=== PATIENT | male | born 1945 | race Caucasian/White ===

== ENCOUNTER → 2017-02-05 | Outpatient (CLI) | payer OTHER ==
[~2017-02-05] MED LIST: ALPR1TAB6 PO; AMLO10TA2 PO; BENA40TA2 PO; DICY10CA53 PO; HYDR453.3 TP; IOHEXOL 240 MG/ML 50ML VIAL. PO ONE; OMEP20CA9 PO; OXYC15TA PO; TRIA1CAP3 PO
--- NOTE | 2017-02-05 13:19 | KCIC ---
CT Abdomen and Pelvis without Intravenous Contrast: History: Generalized abdominal pain for one month, history of diverticulosis and diverticulitis. Comparison: None. Technique: After administration of oral contrast, CT of the abdomen and pelvis was performed. Exposure: One or more of the following individualized dose reduction techniques were utilized for this examination: 1. Automated exposure control 2. Adjustment of the mA and/or kV according to patient size 3. Use of iterative reconstruction technique Findings: Evaluation of solid organs is limited by lack of intravenous contrast. Images of the lower chest demonstrate coronary artery calcifications. Old granulomatous disease of the chest is noted including a calcified granuloma in the left lower lobe. Calcified splenic and hepatic granulomata are present. The spleen is enlarged measuring 18.4 cm in craniocaudal dimension. Bilateral adrenal glands are unremarkable. Pancreas is unremarkable. Aortic atherosclerosis is noted. Gallbladder is absent. No bowel obstruction or inflammation is identified. Appendix is without evidence of inflammation. Colonic diverticulosis is noted, but no diverticulitis is appreciated. No free air or free fluid is seen in the abdomen or pelvis. Urinary bladder is unremarkable. Prostate is enlarged with measurements of 6.5 x 5.3 x 6.4 cm. Rangel bilateral kidneys and ureters are free of stone or obstruction. The inferior pole of the right kidney demonstrates 1.2 cm exophytic lesion which is not adequately characterized on this examination. Superior pole the right kidney demonstrates 0.8 cm exophytic lesion, not adequately characterized. There appears to be mild wall thickening which affects preferentially the proximal two thirds of the stomach. There is an ill-defined a sclerotic focus involving the medial right iliac bone measuring 4.6 cm. Smaller sclerotic lesions can be seen involving the sacrum. Degenerative changes are present in the spine. Impression: 1. Diverticulosis without evidence of diverticulitis. 2. No acute inflammatory process identified in the abdomen or pelvis. 3. Mild wall thickening of the proximal stomach. This finding is nonspecific, but can be seen with Menetrier's disease versus gastritis. Recommend clinical correlation. 4. Nonspecific exophytic lesions involving the right kidney, not adequately characterized on this examination. Attempt at characterization with ultrasound could be performed if clinically indicated and if not already performed. 5. Sclerotic focus involving the medial right iliac bone. A few additional nonspecific smaller sclerotic foci are seen involving the sacrum. Additional sclerotic focus involves the proximal right femur. Recommend correlation with any history of malignancy that could cause sclerotic lesions such as prostate cancer. Nuclear medicine bone scan could be performed if clinically indicated. 6. Splenomegaly. Electronically signed by: Jimenez Sebastian MD (02/05/2017 1:15 PM) [place] [id number]
== END | disposition home or self-care (01) ==
LOC: KCIC CT 10:47
PROVIDERS: ATTEND Internal Medicine
DX: K57.90 Diverticulosis of intestine, part unspecified, without perforation or abscess without bleeding (principal); J84.10 Pulmonary fibrosis, unspecified; R16.1 Splenomegaly, not elsewhere classified; Z85.9 Personal history of malignant neoplasm, unspecified
CPT/HCPCS: 74176; Q9966

== ENCOUNTER → 2017-03-30 | Day surgery (SDC) | payer OTHER ==
[~2017-03-30] MED LIST changes: -ALPR1TAB6 PO; -AMLO10TA2 PO; -BENA40TA2 PO; -DICY10CA53 PO; -HYDR453.3 TP; -IOHEXOL 240 MG/ML 50ML VIAL. PO ONE; -OMEP20CA9 PO; -OXYC15TA PO; +PROPOFOL 20 ML IV; -TRIA1CAP3 PO
[2017-03-30] MEDS: IV RINGERS,LACTATED 1000ML 1,000 ML IV ×2 (10:58)
== END | disposition home or self-care (01) ==
LOC: ENDOS 10:09
DX: K31.7 Polyp of stomach and duodenum (principal); M19.90 Unspecified osteoarthritis, unspecified site; E66.9 Obesity, unspecified; K21.9 Gastro-esophageal reflux disease without esophagitis; Z88.2 Allergy status to sulfonamides; Z87.39 Personal history of other diseases of the musculoskeletal system and connective tissue; Z86.69 Personal history of other diseases of the nervous system and sense organs; Z90.49 Acquired absence of other specified parts of digestive tract; Z87.891 Personal history of nicotine dependence; Z88.8 Allergy status to other drugs, medicaments and biological substances
CPT/HCPCS: 43239; 88305; J2704

== ENCOUNTER → 2018-08-23 | Outpatient (CLI) | payer OTHER ==
[2017-03-30 11:55] VITALS: BP 163/92
[~2018-08-23] MED LIST changes: +ALPR1TAB6 PO; +AMLO10TA8 PO; +BENA40TA3 PO; +DICY10CA53 PO; +HYDR453.3 TP; +OMEP20CA10 PO; +OXYC15TA PO; -PROPOFOL 20 ML IV; +TRIA1CAP3 PO
--- NOTE | 2018-08-23 10:07 | RAD ---
Examination: CT of the abdomen pelvis without contrast HISTORY: History of right renal lesion, follow-up COMPARISON: 10/18/2016 TECHNIQUE: Axial CT images of the abdomen pelvis were performed without IV contrast. Coronal and sagittal deformities are performed Exposure: One or more of the following individualized dose reduction techniques were utilized for this examination: 1. Automated exposure control 2. Adjustment of the mA and/or kV according to patient size 3. Use of iterative reconstruction technique FINDINGS: Mild linear bibasilar lung airspace opacities likely atelectasis. There is mild elevation of the right hemidiaphragm. Trace right pleural effusion is identified. No evidence of free air identified in the abdomen. The evaluation of the solid organs is limited due to lack of IV contrast. The evaluation of bowel is limited due to lack of oral contrast. The noncontrasted liver grossly appears unremarkable. Cholecystectomy clips identified. The spleen measures 18 cm in length likely extending medially. The stomach is minimally distended. The visualized pancreas grossly appears unremarkable The small bowel is nondilated. Feces and gas noted in the colon. Multiple sigmoid colon diverticulosis. An appendicolith is identified within the appendix. Minimal fat stranding identified about the bilateral kidneys, nonspecific. The previously visualized exophytic round density from the inferior aspect of the right kidney appears to have minimally increased in size now measuring 1.7 cm compared to prior exam where it measured 1.3 cm. Moderate enlarged prostate gland. Moderate degenerative changes bilateral hip joint. Sclerotic density identified in the right posterior iliac bone, with sclerotic foci identified in the sacrum, right pubic bone and the proximal right femur similar to prior exam. IMPRESSION: 1. The previously visualized exophytic density from the inferior aspect of the right kidney appears to have slightly increased in size now measuring 1.7 cm compared to prior exam where it measured 1.3 cm. Recommend ultrasound kidney for further evaluation. 2. Splenomegaly. 3. Prostatomegaly. 4. Sclerotic density identified in the right posterior iliac bone, with sclerotic foci identified in the sacrum, right pubic bone and the proximal right femur similar to prior exam. A bone scan is recommended to exclude sclerotic metastasis. Electronically signed by: Oc Santiago MD (08/23/2018 10:04 AM) [facility]-[id number]
== END | disposition home or self-care (01) ==
LOC: CT 14:30
PROVIDERS: ATTEND Internal Medicine
DX: R16.1 Splenomegaly, not elsewhere classified (principal); K57.30 Diverticulosis of large intestine without perforation or abscess without bleeding; N40.0 Benign prostatic hyperplasia without lower urinary tract symptoms; K31.89 Other diseases of stomach and duodenum; K38.1 Appendicular concretions; N28.89 Other specified disorders of kidney and ureter; M89.8X8 Other specified disorders of bone, other site; Z90.49 Acquired absence of other specified parts of digestive tract
CPT/HCPCS: 74176

== ENCOUNTER → 2018-09-02 | Outpatient (CLI) | payer OTHER ==
[2017-03-30 11:55] VITALS: BP 163/92
--- NOTE | 2018-09-02 14:57 | KCIC ---
RENAL COMPLETE BILATERAL: 09/02/2018 2:30 PM Indication: 73 years old Male. Increase in size of right kidney lesion. Comparison: CT abdomen/pelvis August 23, 2018. FINDINGS: Sonographic evaluation of the kidneys is performed utilizing grayscale and color Doppler. Right kidney: Size: 11.2 x 5.3 x 4.7 cm. Collecting System: No hydronephrosis. No renal calculi detected. Parenchyma: Normal echotexture and morphology. On the inferior pole of the right kidney, there is a circumscribed cystic lesion measuring 2.2 x 1.2 x 1.8 cm. There is posterior acoustic enhancement with minimal internal debris identified. Margins appear mildly thickened without definite mural nodularity (Bosniak 2F). Left kidney: Size: 10.7 x 4.6 x 4.6 cm. Collecting System: No hydronephrosis. No renal calculi detected. Parenchyma: Normal echotexture and morphology. No focal contour deforming renal mass. Urinary bladder: Unremarkable. Aorta and IVC are obscured by bowel gas. Prostate is enlarged with prostate volume measuring up to 115 cc. 2. Prostatomegaly. IMPRESSION: 1. Nonvascular cystic lesion along the inferior pole the right kidney measures 2.2 x 1.2 x 1.8 cm with minimal internal debris (Bosniak 2F) and may represent a cyst complicated by hemorrhage or protein. Margins of the cysts do appear slightly thickened without definite mural nodularity. Six-month follow-up renal ultrasound or renal mass protocol CT is recommended. Electronically signed by: Karen Carvalho MD (09/02/2018 2:54 PM) [id number]
== END | disposition home or self-care (01) ==
LOC: KCIC US 14:01
PROVIDERS: ATTEND Internal Medicine
DX: N28.89 Other specified disorders of kidney and ureter (principal); N40.0 Benign prostatic hyperplasia without lower urinary tract symptoms
CPT/HCPCS: 76770

== ENCOUNTER 2019-05-17 07:55 | Inpatient (IN) | payer OTHER ==
[~2019-05-17] VITALS: Ht 177.8 cm; Wt 114.0 kg
[~2019-05-17 07:55] MED LIST changes: -OMEP20CA10 PO; +OMEP20CA16 PO
[2019-05-17] MEDS ORDERED: methylPREDNISolone SOD SUCC PF 125 MG/2 ML VIAL. IV ONE (08:15)
[2019-05-17] MEDS ORDERED: IPRATRPIUM/ALBUTEROL 0.5/2.5MG 3 ML NEBU. NEB ONE (08:15)
[2019-05-17] MEDS ORDERED: FUROSEMIDE 20 MG/2 ML VIAL. IVP ONE ×2 (08:45→11:15)
[2019-05-17] MEDS ORDERED: NITROGLYCERIN OINT 1 GM PACKET. TP ONE (08:45)
[2019-05-17] MEDS ORDERED: cefTRIAXone IV Push 1 GM VIAL. IVP ONE (08:45)
[2019-05-17] MEDS ORDERED: DOXYCYCLINE HYCLATE 100 MG in IV DEXTROSE 5% 100ML 100 ML IV ONE (09:00)
--- NOTE | 2019-05-17 09:06 | RAD ---
PORTABLE CHEST 1V Clinical Indication: Shortness of breath. Comparison: None. Findings: There is cardiomegaly. Atherosclerotic thoracic aorta. Interstitial markings are diffusely increased. There is trace fluid along the minor fissure. Stable elevation of right hemidiaphragm. Calcified granuloma left lower lobe. There is opacity in the left lung base measuring approximately 5.7 cm transverse by 3 cm craniocaudal. No definite pleural effusion. There is no pneumothorax. ACDF hardware. IMPRESSION: 1. Cardiomegaly and diffusely increased interstitial markings. Considerations include interstitial edema versus interstitial pneumonia. 2. There is consolidation in the left lung base that may be pneumonia or atelectasis or mass. Radiographic follow-up is recommended. Electronically signed by: Santosh Art MD (05/17/2019 9:03 AM) [id number]
[2019-05-17 09:49] LABS: BASE EXCESS ABG -1 mmol/L (-3-3); HCO3 ABG 25 mmol/L (21-28); PCO2 ABG 48 mmHg (35-46); PO2 ABG 80 mmHg (65-108); SAT O2 ABG 95 % (92-99)
[2019-05-17 09:55] LABS: BASO # 0.1 x10^3/uL (0.0-0.2); BASO % 1 % (0-3); EOS # 0.1 x10^3/uL (0.0-0.7); EOS % 1 % (0-3); HEMATOCRIT 50.1 % (39.0-53.0); HEMOGLOBIN 16.7 g/dL (13.0-17.5); LYMPH # 0.3 x10^3/uL (1.0-4.8); LYMPH % 3 % (24-48); MEAN CORPUSCULAR HEMOGLOBIN 29 pg (25-35); MEAN CORPUSCULAR HGB CONC 33 g/dL (31-37); MEAN CORPUSCULAR VOLUME 88 fL (79-100); MONO # 0.6 x10^3/uL (0.0-1.1); MONO % 5 % (0-9); NEUT # 10.4 x10^3/uL (1.8-7.7); NEUT % 91 % (31-73); PLATELET COUNT 203 x10^3/uL (140-400); RED BLOOD COUNT 5.69 x10^6/uL (4.30-5.70); RED CELL DISTRIBUTION WIDTH 15.4 % (11.5-14.5); WHITE BLOOD COUNT 11.5 x10^3/uL (4.0-11.0)
[2019-05-17 10:05] LABS: PROTHROMBIN TIME PATIENT 14.4 SEC (11.7-14.0)
[2019-05-17 10:13] LABS: INFLUENZA A PATIENT NEGATIVE (NEGATIVE); INFLUENZA B PATIENT NEGATIVE (NEGATIVE)
[2019-05-17 10:34] LABS: ALBUMIN 3.6 g/dL (3.4-5.0); ALBUMIN/GLOBULIN RATIO 1.1 (1.0-1.7); CALCIUM 8.3 mg/dL (8.5-10.1); CREATININE 1.5 mg/dL (0.7-1.3); POTASSIUM 4.3 mmol/L (3.5-5.1); TOTAL BILIRUBIN 1.1 mg/dL (0.2-1.0)
[2019-05-17] MEDS ORDERED: ASPIRIN CHEWABLE 81 MG TABLET. PO ONE (10:45)
[2019-05-17 11:18] LABS: % BANDS 8 % (0-9); % EOS 1 % (0-5); % LYMPHS 3 % (24-48); % MONOS 8 % (0-10); % SEGS 80 % (35-66); PLT ESTIMATE ADEQUATE (ADEQUATE)
--- NOTE | 2019-05-17 11:43 | EKG ---
[facility] [address] [place] [address] Test Date: 2019-05-17 Test Time: 08:12:43 Pat Name: MALKA THOMPSON Department: Room: Gender: M [employer] Department Supervisor: : 1945 Requested By: OMARI ANGELES Order Number: [id number] Reading MD: Measurements Intervals [place] Rate: 116 P: 90 [place]: 174 QRS: 44 QRSD: 94 T: 73 QT: 310 QTc: 436 Interpretive Statements SINUS TACHYCARDIA QRS(T) CONTOUR ABNORMALITY CONSISTENT WITH SEPTAL INFARCT PROBABLY OLD NON SPECIFIC ST DEPRESSION ABNORMAL ECG No previous ECG available for comparison
--- NOTE | 2019-05-17 12:32 | PHYS DOC ---
Past Medical History Past Medical History: Hypertension Past Surgical History: Cholecystectomy Smoking Status: Former Smoker Alcohol Use: Rarely Adult General Chief Complaint Chief Complaint: DYSPNEA/RESPIRATOY DISTRESS HPI HPI Patient is a 73 year old male who is presenting with chief complaint of shortness of breath. Patient has been coughing some he actually short of breath about 2 weeks ago he got a little bit better but then seem to get worse again last night He did shop in [facility] last week but generally he has been staying in [facility]. He does not know of any fevers per se. Review of Systems Review of Systems Constitutional: Denies fever or chills [] Eyes: Denies change in visual acuity, redness, or eye pain [] HENT: Denies nasal congestion or sore throat [] Respiratory: Denies cough or shortness of breath [] Cardiovascular: No additional information not addressed in HPI [] GI: Denies abdominal pain, nausea, vomiting, bloody stools or diarrhea [] : Denies dysuria or hematuria [] Musculoskeletal: Denies back pain or joint pain [] Integument: Denies rash or skin lesions [] Neurologic: Denies headache, focal weakness or sensory changes [] Endocrine: Denies polyuria or polydipsia [] All other systems were reviewed and found to be within normal limits, except as documented in this note. Current Medications Current Medications Current Medications Medications (Trade) Dose Ordered Sig/Chance Start Time Stop Time Status Last Admin Dose Admin Albuterol/ Ipratropium (Duoneb) 3 ml 1X ONCE 05/17/19 08:15 05/17/19 08:16 DC 05/17/19 09:00 3 ML Aspirin (Children'S Aspirin) 324 mg 1X ONCE 05/17/19 10:45 05/17/19 10:46 DC 05/17/19 11:11 324 MG Ceftriaxone Sodium (Rocephin) 1 gm 1X ONCE 05/17/19 08:45 05/17/19 08:46 DC 05/17/19 09:49 1 GM Doxycycline Hyclate 100 mg/ Dextrose 100 ml @ 50 mls/hr 1X ONCE 05/17/19 09:00 05/17/19 10:59 DC 05/17/19 09:50 50 MLS/HR Furosemide (Lasix) 20 mg 1X ONCE 05/17/19 11:15 05/17/19 11:16 DC Methylprednisolone Sodium Succinate (SOLU-Medrol 125MG VIAL) 125 mg 1X ONCE 05/17/19 08:15 05/17/19 08:16 DC 05/17/19 09:49 125 MG Nitroglycerin (Nitro-Bid Oint) 1 inch 1X ONCE 05/17/19 08:45 05/17/19 08:46 DC 05/17/19 09:49 1 INCH Allergies Allergies Allergies Coded Allergies Type Severity Reaction Last Updated Verified Sulfa (Sulfonamide Antibiotics) Allergy Intermediate 03/30/17 Yes fentanyl Allergy Intermediate 03/30/17 Yes valacyclovir Allergy Intermediate 03/30/17 Yes Physical Exam Physical Exam Constitutional: Well developed, well nourished, moderate distress HENT: Normocephalic, atraumatic, bilateral external ears normal, oropharynx moist, no oral exudates, nose normal. [] Eyes: PERRLA, EOMI, conjunctiva normal, no discharge. [] Neck: Normal range of motion, no tenderness, supple, no stridor. [] Cardiovascular:Heart rate regular rhythm, no murmur but difficult exam Lungs & Thorax: Wheezing noted bilaterally increased work of breathing noted patient was diaphoretic Abdomen: Bowel sounds normal, soft, no tenderness, no masses, no pulsatile masses. [] Skin: Warm, dry, no erythema, no rash. [] Back: No tenderness, no CVA tenderness. [] Extremities: No tenderness, no cyanosis, no clubbing, ROM intact, 2+ bilateral edema al deficits noted. [] Psychologic: Affect normal, judgement normal, mood normal. [] Current Patient Data Vital Signs Vital Signs Date Time Temp Pulse Resp B/P (MAP) Pulse Ox O2 Delivery O2 Flow Rate FiO2 05/17/19 10:57 81 135/81 (99) 98 Room Air 05/17/19 08:28 101.1 41 101.1 Lab Values Laboratory Tests Test 05/17/19 09:30 05/17/19 09:42 05/17/19 09:45 Influenza Type A Antigen Negative (NEGATIVE) Influenza Type B Antigen Negative (NEGATIVE) White Blood Count 11.5 x10^3/uL (4.0-11.0) H Red Blood Count 5.69 x10^6/uL (4.30-5.70) Hemoglobin 16.7 g/dL (13.0-17.5) Hematocrit 50.1 % (39.0-53.0) Mean Corpuscular Volume 88 fL (79-100) Mean Corpuscular Hemoglobin 29 pg (25-35) Mean Corpuscular Hemoglobin Concent 33 g/dL (31-37) Red Cell Distribution Width 15.4 % (11.5-14.5) H Platelet Count 203 x10^3/uL (140-400) Neutrophils (%) (Auto) 91 % (31-73) H Lymphocytes (%) (Auto) 3 % (24-48) L Monocytes (%) (Auto) 5 % (0-9) Eosinophils (%) (Auto) 1 % (0-3) Basophils (%) (Auto) 1 % (0-3) Neutrophils # (Auto) 10.4 x10^3/uL (1.8-7.7) H Lymphocytes # (Auto) 0.3 x10^3/uL (1.0-4.8) L Monocytes # (Auto) 0.6 x10^3/uL (0.0-1.1) Eosinophils # (Auto) 0.1 x10^3/uL (0.0-0.7) Basophils # (Auto) 0.1 x10^3/uL (0.0-0.2) Segmented Neutrophils % 80 % (35-66) H Band Neutrophils % 8 % (0-9) Lymphocytes % 3 % (24-48) L Monocytes % 8 % (0-10) Eosinophils % 1 % (0-5) Platelet Estimate Adequate (ADEQUATE) Prothrombin Time 14.4 SEC (11.7-14.0) H Prothrombin Time INR 1.2 (0.8-1.1) H Sodium Level 145 mmol/L (136-145) Potassium Level 4.3 mmol/L (3.5-5.1) Chloride Level 106 mmol/L (98-107) Carbon Dioxide Level 29 mmol/L (21-32) Anion Gap 10 (6-14) Blood Urea Nitrogen 15 mg/dL (8-26) Creatinine 1.5 mg/dL (0.7-1.3) H Estimated GFR (Cockcroft-Gault) 46.0 BUN/Creatinine Ratio 10 (6-20) Glucose Level 183 mg/dL (70-99) H Lactic Acid Level 1.4 mmol/L (0.4-2.0) Calcium Level 8.3 mg/dL (8.5-10.1) L Total Bilirubin 1.1 mg/dL (0.2-1.0) H Aspartate Amino Transferase (AST) 22 U/L (15-37) Alanine Aminotransferase (ALT) 28 U/L (16-63) Alkaline Phosphatase 125 U/L (46-116) H Troponin I Quantitative 0.149 ng/mL (0.000-0.055) OM-Nar-C-Type Natriuretic Peptide 9797 pg/mL (0-124) H Total Protein 7.0 g/dL (6.4-8.2) Albumin 3.6 g/dL (3.4-5.0) Albumin/Globulin Ratio 1.1 (1.0-1.7) O2 Saturation 95 % (92-99) Arterial Blood pH 7.34 (7.35-7.45) L Arterial Blood pCO2 at Patient Temp 48 mmHg (35-46) H Arterial Blood pO2 at Patient Temp 80 mmHg (65-108) Arterial Blood HCO3 25 mmol/L (21-28) Arterial Blood Base Excess -1 mmol/L (-3-3) FiO2 50 bipap Laboratory Tests 05/17/19 09:42 Laboratory Tests 05/17/19 09:42 EKG EKG [] EKG shows a sinus tach rate of 117 there is some nonspecific changes laterally no STEMI is noted interpreted by me the time of the encounter Radiology/Procedures Radiology/Procedures [] Impressions: IMPRESSION: 1. Cardiomegaly and diffusely increased interstitial markings. Considerations include interstitial edema versus interstitial pneumonia. 2. There is consolidation in the left lung base that may be pneumonia or atelectasis or mass. Radiographic follow-up is recommended. Electronically signed by: Santosh Art MD (05/17/2019 9:03 AM) [id number] Course & Med Decision Making Course & Med Decision Making Pertinent Labs and Imaging studies reviewed. (See chart for details) [] Notably elevated BNP and troponin likely related to fluid overload based on the checks chest x-ray. Noted the leukocytosis and the left basilar chest x-ray finding consider the possibility of pneumonia given treatment for this as well. I consulted with Dr. Carroll, from infectious disease who did agree with coronavirus testing and maintain droplet precautions. I spoke with Dr. No who did recommend also a dose of Lasix which I ordered and consult with cardiology pulmonary and infectious disease. In summary 73-year-old male presenting with fever shortness of breath some coughing found to have likely combination of pneumonia and congestive heart failure with consideration of coronavirus. We did all use her appropriate PPE. I initially when the patient was first in the emergency room he was working quite hard to breathe we put him on BiPAP for about 30 minutes but then I took him off once I saw his gas and he was doing very well on a 50% Ventimask Dragon Disclaimer Dragon Disclaimer This electronic medical record was generated, in whole or in part, using a voice recognition dictation system. Departure Departure Impression: Primary Impression: Pneumonia Additional Impression: Elevated brain natriuretic peptide (BNP) level Disposition: 09 ADMITTED INPATIENT Admitting Physician: Jimenez No Condition: GUARDED Referrals: JIMENEZ NO MD (PCP) Problem Qualifiers OMARI ANGELES MD May 17, 2019 12:32
--- NOTE | 2019-05-17 13:36 | PDOC2 ---
SABINO REYNAGA [employer]IC 05/17/19 1336: CARDIAC CONSULT DATE OF CONSULT Date of Consult DATE: 05/17/19 TIME: 13:28 REASON FOR CONSULT Reason for Consult: SOA REFERRING PHYSICIAN Referring Physician: Marika SOURCE Source: Chart review, Patient HISTORY OF PRESENT ILLNESS HISTORY OF PRESENT ILLNESS This is a 73 yo male admitted for complains of shortness of breath. He started having some SOA 2 weeks ago started off as PEDERSEN and went to his PCP and checked him out and was told he was OK. In the last week his SOA increased to a point that he could not go to sleep. He actually take xanax to help him calm his thoughts at night and help him sleep but no hx of anxiety and depression. Reports HTN and takes his 3 BP meds regularly. No leg swelling but last night he felt more SOA and has progressed to rest. This morning he could not breath very well and actually had some chills but no recorded fever.. No coughing and felt some nausea no vomiting. He was short of breath that he felt that his mid chest was thumping and was feeling like belching. No chest heaviness, no jaw or arm discomfort. Denies any TERESO, or any pulmonary disease. He quit smoking a while back. No known prior exposure to anyone with respiratory illnesses. 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) Renal/: Benign prostatic enlarg., Other (right renal cyst) Endocrine: No pertinent hx Dermatology: No pertinent hx PAST SURGICAL HISTORY Past Surgical History ACDF 2002 and 2004, Cholecystectomy FAMILY HISTORY Family History: Coronary Artery Disease (father) SOCIAL HISTORY Smoke: Quit (10 yrs ago) ALCOHOL: none Drugs: None Lives: Alone CURRENT MEDICATIONS CURRENT MEDICATIONS Current Medications Medications (Trade) Dose Ordered Sig/Chance Route PRN Reason Start Time Stop Time Status Last Admin Dose Admin Albuterol/ Ipratropium (Duoneb) 3 ml 1X ONCE NEB 05/17/19 08:15 05/17/19 08:16 DC 05/17/19 09:00 Methylprednisolone Sodium Succinate (SOLU-Medrol 125MG VIAL) 125 mg 1X ONCE IV 05/17/19 08:15 05/17/19 08:16 DC 05/17/19 09:49 Ceftriaxone Sodium (Rocephin) 1 gm 1X ONCE IVP 05/17/19 08:45 05/17/19 08:46 DC 05/17/19 09:49 Nitroglycerin (Nitro-Bid Oint) 1 inch 1X ONCE TP 05/17/19 08:45 05/17/19 08:46 DC 05/17/19 09:49 Doxycycline Hyclate 100 mg/ Dextrose 100 ml @ 50 mls/hr 1X ONCE IV 05/17/19 09:00 05/17/19 10:59 DC 05/17/19 09:50 Aspirin (Children'S Aspirin) 324 mg 1X ONCE PO 05/17/19 10:45 05/17/19 10:46 DC 05/17/19 11:11 Furosemide (Lasix) 20 mg 1X ONCE IVP 05/17/19 11:15 05/17/19 11:16 DC 05/17/19 12:25 ALLERGIES ALLERGIES: Coded Allergies: Sulfa (Sulfonamide Antibiotics) (Verified Allergy, Intermediate, 03/30/17) fentanyl (Verified Allergy, Intermediate, 03/30/17) valacyclovir (Verified Allergy, Intermediate, 03/30/17) ROS Review of System 14 point ROS evaluated with pertinent positives noted per HPI PHYSICAL EXAM General: Alert, Oriented X3, Cooperative, mild distress HEENT: Atraumatic, Mucous membr. moist/pink Lungs: Other (diminiahse basilar crackles) Heart: Regular rate (sinus tachycardia), Normal S1, Normal S2, Other (2/6 systolic murmur to LLS border) Abdomen: Soft, No tenderness, Other (obese) Extremities: No cyanosis Skin: No breakdown, No significant lesion Neuro: Normal speech, Sensation intact Psych/Mental Status: Mental status NL, Mood NL MUSCULOSKELETAL: Osteoarthritic changes both hands VITALS/I&O VITALS/I&O: Vital Signs Date Time Temp Pulse Resp B/P (MAP) Pulse Ox O2 Delivery O2 Flow Rate FiO2 05/17/19 12:57 80 116/68 (84) 97 Venturi Mask 05/17/19 09:55 15.0 05/17/19 08:28 101.1 41 101.1 LABS Lab: Laboratory Tests Test 05/17/19 09:30 05/17/19 09:42 05/17/19 09:45 Influenza Type A Antigen Negative (NEGATIVE) Influenza Type B Antigen Negative (NEGATIVE) White Blood Count 11.5 x10^3/uL (4.0-11.0) H Red Blood Count 5.69 x10^6/uL (4.30-5.70) Hemoglobin 16.7 g/dL (13.0-17.5) Hematocrit 50.1 % (39.0-53.0) Mean Corpuscular Volume 88 fL (79-100) Mean Corpuscular Hemoglobin 29 pg (25-35) Mean Corpuscular Hemoglobin Concent 33 g/dL (31-37) Red Cell Distribution Width 15.4 % (11.5-14.5) H Platelet Count 203 x10^3/uL (140-400) Neutrophils (%) (Auto) 91 % (31-73) H Lymphocytes (%) (Auto) 3 % (24-48) L Monocytes (%) (Auto) 5 % (0-9) Eosinophils (%) (Auto) 1 % (0-3) Basophils (%) (Auto) 1 % (0-3) Neutrophils # (Auto) 10.4 x10^3/uL (1.8-7.7) H Lymphocytes # (Auto) 0.3 x10^3/uL (1.0-4.8) L Monocytes # (Auto) 0.6 x10^3/uL (0.0-1.1) Eosinophils # (Auto) 0.1 x10^3/uL (0.0-0.7) Basophils # (Auto) 0.1 x10^3/uL (0.0-0.2) Segmented Neutrophils % 80 % (35-66) H Band Neutrophils % 8 % (0-9) Lymphocytes % 3 % (24-48) L Monocytes % 8 % (0-10) Eosinophils % 1 % (0-5) Platelet Estimate Adequate (ADEQUATE) Prothrombin Time 14.4 SEC (11.7-14.0) H Prothrombin Time INR 1.2 (0.8-1.1) H Sodium Level 145 mmol/L (136-145) Potassium Level 4.3 mmol/L (3.5-5.1) Chloride Level 106 mmol/L (98-107) Carbon Dioxide Level 29 mmol/L (21-32) Anion Gap 10 (6-14) Blood Urea Nitrogen 15 mg/dL (8-26) Creatinine 1.5 mg/dL (0.7-1.3) H Estimated GFR (Cockcroft-Gault) 46.0 BUN/Creatinine Ratio 10 (6-20) Glucose Level 183 mg/dL (70-99) H Lactic Acid Level 1.4 mmol/L (0.4-2.0) Calcium Level 8.3 mg/dL (8.5-10.1) L Total Bilirubin 1.1 mg/dL (0.2-1.0) H Aspartate Amino Transferase (AST) 22 U/L (15-37) Alanine Aminotransferase (ALT) 28 U/L (16-63) Alkaline Phosphatase 125 U/L (46-116) H Troponin I Quantitative 0.149 ng/mL (0.000-0.055) FQ-Pvu-L-Type Natriuretic Peptide 9797 pg/mL (0-124) H Total Protein 7.0 g/dL (6.4-8.2) Albumin 3.6 g/dL (3.4-5.0) Albumin/Globulin Ratio 1.1 (1.0-1.7) O2 Saturation 95 % (92-99) Arterial Blood pH 7.34 (7.35-7.45) L Arterial Blood pCO2 at Patient Temp 48 mmHg (35-46) H Arterial Blood pO2 at Patient Temp 80 mmHg (65-108) Arterial Blood HCO3 25 mmol/L (21-28) Arterial Blood Base Excess -1 mmol/L (-3-3) FiO2 50 bipap Laboratory Tests 05/17/19 09:42 Laboratory Tests 05/17/19 09:42 ASSESSMENT/PLAN ASSESSMENT/PLAN 1. Dyspnea: combination of CHF and pneumonia 2. Fever with CAP. FLU neg 3. Acute CHF with possible diastolic dysfunction 4. DONTAE vs CKD 5. Accelerated HTN: initially at 185/112 now controlled 6. Mild troponin elevation: initial at 0.14, CP free. EKG sinus tach with LVH, no acute ST-T wave changes. possibly demand mediated 7. Obesity Recommendations 1. COVID-[address] chest no contrast for further delineation 2. Lasix given in ED. Bipap PRN. Antibiotics per PCP 3. Trend troponin, check TSH, UA, Mg, lipids, procalc 4. TTE tomorrow pending cultures 5. Further recommendation pending tests 6. Restart home BP meds. VENU YODER MD 05/17/19 1731: CARDIAC CONSULT ASSESSMENT/PLAN ASSESSMENT/PLAN Patient seen and examined. Agree with above nurse practitioner note. 73-year-old man presenting with acute dyspnea. He has accommodation of diastolic heart failure and pneumonia. Agree with diuresis. Blood pressure control. Await echocardiogram to determine any further interventions. SABINO REYNAGA APRN May 17, 2019 13:36 VENU YODER MD May 17, 2019 17:31
[2019-05-17 14:27] LABS: MAGNESIUM 1.6 mg/dL (1.8-2.4)
[2019-05-17 14:28] LABS: CHOLESTEROL/HDL RATIO 4.2
[2019-05-17] MEDS ORDERED: oxyCODONE IR 5 MG TABLET PO PRN (14:45)
[2019-05-17] MEDS ORDERED: ACETAMINOPHEN 325 MG TABLET. PO PRN (14:45)
[2019-05-17] MEDS ORDERED: MAGNESIUM SULFATE 2GM 50 ML IV ONE ×2 (14:45→15:00)
[2019-05-17] MEDS ORDERED: ENOXAPARIN 30 MG/0.3 ML SYRINGE. SQ SCH (14:45)
[2019-05-17 14:47] VITALS: BP 127/79
[2019-05-17] MEDS ORDERED: DICY10CA3 PO (14:57)
[2019-05-17] MEDS ORDERED: OXYC15TA PO (14:57)
[2019-05-17] MEDS ORDERED: ESOM40CA PO (14:57)
--- NOTE | 2019-05-17 15:00 | NUR ---
Patient arrived to room 200 via bed from ER, transferred to bed with standby assistance. Patient on 50% Venti mask, vitals stable. Patient placed on Droplet precautions, call light within reach. Will continue to monitor.
--- NOTE | 2019-05-17 15:01 | PDOC ---
Provider Note Provider Note history and physical dictated # [id number] RICK CAROLINA MD May 17, 2019 15:01
--- NOTE | 2019-05-17 15:46 | HP ---
ADMIT DATE: 05/17/2019 LOCATION: He is in room #200. HISTORY OF PRESENT ILLNESS: The patient is a 73-year-old obese white male who was admitted to [facility] through the Emergency Room on 05/17/2019 with the acute onset of shortness of breath last night. He says he was short of breath when he lays flat in bed and it was a little better when he stood up. He just had an occasional cough with no sputum today. He said he was a little bit short of breath at times about 2 weeks ago and got worse gradually over the last week and then it was really worse last night when he went to bed. Around 11:30 p.m. when he woke up and got real short of breath. He also had some chest pain, which lasted a few hours in the retrosternal area. The patient's chest pain is resolved and he went to the [facility] Emergency Room and was noted to be in acute hypoxic hypercarbic respiratory failure and was placed on BiPAP and then switched to oxygen Ventimask. His proBNP was high and a chest x-ray was consistent with cardiomegaly and increased interstitial markings. He also had a consolidated infiltrate in left lung base. He was treated with doxycycline and IV Rocephin in the Emergency Room and received a couple of doses of 20 mg of Lasix IV. Feels less short of breath and switched to oxygen mask at 50%. In addition, he was given Solu-Medrol 125 mg IV and nitroglycerin ointment was given once in the Emergency Room. The patient was subsequently admitted to the hospital for further evaluation and treatment. He just had a CAT scan of the chest without contrast in the way up to his room and the results are pending. He also was noted to be febrile in the Emergency Room and blood cultures were ordered. His temperature was 101.1 degrees. He was not aware of any fever or chills at home. His influenza screen was negative. He was screened for COVID-19 results, which are pending. He is therefore admitted for further evaluation of his acute hypoxic and hypercarbic respiratory failure, suspected pneumonia and congestive heart failure. ALLERGIES AND INTOLERANCES: SULFA, FENTANYL AND VALACYCLOVIR. MEDICATIONS: Prior to admission include alprazolam 1 mg b.i.d., amlodipine 10 mg every day, benazepril 40 mg every day, carvedilol 6.25 mg b.i.d., Nexium 40 mg every day, oxycodone 15 mg b.i.d. p.r.n. PAST MEDICAL HISTORY: Significant for hypertension, gastroesophageal reflux disease, chronic low back pain and neck pain as well as right knee and left hip pain for which he takes p.r.n. oxycodone. He had cervical spondylosis. He has had gout in the past, gastroesophageal reflux disease. Lumbar spondylosis. Diverticulosis and depression in the past, hiatal hernia, macular degeneration, irritable bowel syndrome, obesity, osteoarthritis, reflux esophagitis. He had a benign colon polypectomy in 2008, cervical laminectomy x 2 in 2004, anal fistula repair in 2004 and cholecystectomy. He has had gout synovitis in the past and chronic pain. SOCIAL HISTORY: He does not drink alcohol nor does he smoke cigarettes. FAMILY HISTORY: Father had myocardial infarction. Mother had lung cancer and diabetes mellitus and coronary artery disease. REVIEW OF SYSTEMS: GENERAL: He does have a fever noted in the Emergency Room. CARDIOVASCULAR: Distant chest pain. PULMONARY: Had shortness of breath, occasional cough. GASTROINTESTINAL: No vomiting or diarrhea. ENDOCRINE: No diabetes mellitus. SKIN: No rashes. Rest of systems reviewed is negative except for the shortness of breath as mentioned above. PHYSICAL EXAMINATION: VITAL SIGNS: Temperature is 101.1 degrees. Apical pulse is more like 100 when I was in the room, respiratory rate is 20, blood pressure 116/68, oxygen saturation 97% on a Venturi mask. HEENT: Eyes: Gaze is conjugate. Face is symmetrical. He is wearing an oxygen mask. HEART: Reveals an S1, S2. There is no S3 or murmur. LUNGS: Clear with decreased breath sounds. ABDOMEN: Soft with no hepatosplenomegaly or masses. EXTREMITIES: Lower extremities with trace edema in both feet. Both feet are equally warm. SKIN: Color of the feet look fine. NEUROLOGIC: Showed no focal weakness of the extremities or facial asymmetry. LABORATORY DATA: Review of his laboratory tests: White count was increased at 11.5, hemoglobin 16.7, platelet count was 203,000, 91 polys and 3 lymphocytes. An arterial blood gas in the Emergency Room showed a pH of 7.34, pCO2 of 48, pO2 was 80 and a 50% BiPAP. His INR was 1.2. Sodium 145, potassium 4.3, chloride 106, total CO2 of 29, BUN 15, creatinine 1.5, unclear what his baseline creatinine is. Blood sugar was 183, checked at 9:42 in the morning. Total bilirubin was 1.1. SGOT, SGPT normal, alkaline phosphatase 125, albumin 3.6. Influenza A and B was negative. EKG showed sinus tachycardia. Chest x-ray as stated above showed cardiomegaly with diffuse increased interstitial markings. Interstitial edema versus interstitial pneumonia. He had a consolidation in the left lung base, which could be pneumonia, atelectasis or mass. His magnesium is low at 1.6. Lactic acid was 1.4, troponin was increased at 0.149, ProBNP was increased at 9797, cholesterol 144, triglycerides 122, LDL cholesterol 86 and his HDL cholesterol was 34 with TSH level normal at 2.0. ASSESSMENT: 1. Acute hypoxic and hypercarbic respiratory failure. 2. Suspect acute congestive heart failure, unclear if it is systolic or diastolic. His proBNP is elevated. He had evidence of orthopnea last night, got some lower extremity edema. 3. Left lower lobe lung consolidation, certainly need to rule out pneumonia with his leukocytosis and his left shift as well as his fever. 4. Acute kidney injury with serum creatinine of 1.5. 5. Hypomagnesemia. 6. Chest pain. 7. Hypertension. 8. Gastroesophageal reflux disease. 9. Chronic pain. PLAN: Plan at this time is to consult Dr. Ivy Carroll for Infectious Disease, Dr. Ricks or Dr. Smith for Pulmonary and Dr. Lew for Cardiology. Serial troponin levels and cardiac enzymes have been ordered. We will obtain an echocardiogram. We will place him on a cardiac diet given another dose of Lasix 40 mg IV in the morning. Wait for the CAT scan of the chest without contrast, results to be read. We will continue his home medicines except will decrease amlodipine from 10 mg to 5 mg every day. Continue with IV Rocephin and doxycycline. Repeat a CBC and BMP tomorrow. I will order some low dose Lovenox for deep vein thrombosis prophylaxis. Repeat a CBC and BMP tomorrow. Continue his oxygen mask. Wait for his blood culture results. RICK CAROLINA MD DR: IZABELA/sarbjit JOB#: [id number] / [id number]
[2019-05-17] MEDS ORDERED: ENOXAPARIN 40 MG/0.4 ML SYRINGE. SQ SCH (16:00)
[2019-05-17] MEDS: CARVEDILOL 6.25 MG TABLET. PO SCH (16:45)
--- NOTE | 2019-05-17 16:49 | RAD ---
EXAM: CT Chest without IV contrast INDICATION: Pneumonia. CHF. TECHNIQUE: Multi-detector row CT images were acquired from the thoracic inlet through the upper abdomen without the use of IV contrast. Sagittal and coronal images were acquired from the transaxial data. All CT scans performed at this facility utilize dose optimization techniques as appropriate to the exam, including the following: Automated exposure control and adjustment of the mA and/or KV according to patient size (this includes techniques or standardized protocols for targeted exams where dose is indication/reason for exam). COMPARISON: Chest x-ray earlier same day FINDINGS: The absence of IV contrast limits evaluation of soft tissue pathology. CARDIOVASCULAR: Upper normal heart size. Trace pericardial effusion. Multivessel coronary calcifications. Normal caliber thoracic aorta. MEDIASTINUM & RILEY: Partially imaged inferior pole left thyroid lobe nodule measuring 1.3 cm, better evaluated on ultrasound if clinically warranted. LUNGS: Minimal centrilobular pattern emphysema. Patchy consolidation in the left lower lobe with air bronchograms. Incidental adjacent left lower lobe pulmonary hamartoma 1.5 cm in diameter. Peripheral platelike atelectasis in the right lower lobe with associated volume loss and diaphragmatic elevation. PLEURAL SPACE: Small bilateral pleural effusions, left greater than right. No pneumothorax. OSSEOUS & SOFT TISSUE: Lower cervical ACDF surgical changes. The lower neck is partly obscured by streak artifact from patient's cross bearing chain. ABDOMEN: Included upper abdomen shows borderline thickening of the gastric mucosa. Scattered calcifications in the liver and spleen are present. The gallbladder is not visualized and may be surgically absent. There is poststenotic dilatation of the celiac axis to a transverse diameter of 2 cm (compared with the SMA diameter of 0.8 cm). This dilation is noted in the setting of downward displacement and focal narrowing of the celiac axis near the diaphragmatic crura, suggesting median arcuate ligament compression. IMPRESSION: Left lower lobe pneumonia and additional findings of underlying mild CHF with borderline cardiomegaly and bilateral pleural effusions. There does appear to have been some improvement in findings of CHF from earlier the same day. Electronically signed by: Rosi Feliciano MD (05/17/2019 4:46 PM) [id number]
[2019-05-17 18:06] LABS: BILIRUBIN,URINE NEGATIVE (NEG); CLARITY,URINE CLEAR; COLOR,URINE YELLOW; NITRITE,URINE NEGATIVE (NEG); PROTEIN,URINE NEGATIVE (NEG-TRACE); UROBILINOGEN,URINE 0.2 mg/dL (0.2 mg/dL)
[2019-05-17 18:17] LABS: BACTERIA,URINE 0 /HPF (0-FEW); HYALINE CASTS, URINE OCCASIONAL /HPF; RBC,URINE 0 /HPF (0-2); SQUAMOUS EPITHELIAL CELL,UR OCC /LPF; WBC,URINE RARE /HPF (0-4)
[2019-05-17 19:00] VITALS: BP 130/72
[2019-05-17] MEDS ORDERED: ZOLPIDEM 5 MG TABLET. PO PRN (19:30)
--- NOTE | 2019-05-17 19:49 | PDOC ---
PULMONARY PROGRESS NOTES Vitals Vital Signs Date Time Temp Pulse Resp B/P (MAP) Pulse Ox O2 Delivery O2 Flow Rate FiO2 05/17/19 16:45 84 123/66 05/17/19 15:00 Venturi Mask 15.0 05/17/19 14:47 98.3 20 100 98.3 Labs Laboratory Tests Test 05/17/19 09:30 05/17/19 09:42 05/17/19 09:45 05/17/19 14:20 Influenza Type A Antigen Negative (NEGATIVE) Influenza Type B Antigen Negative (NEGATIVE) White Blood Count 11.5 x10^3/uL (4.0-11.0) Red Blood Count 5.69 x10^6/uL (4.30-5.70) Hemoglobin 16.7 g/dL (13.0-17.5) Hematocrit 50.1 % (39.0-53.0) Mean Corpuscular Volume 88 fL (79-100) Mean Corpuscular Hemoglobin 29 pg (25-35) Mean Corpuscular Hemoglobin Concent 33 g/dL (31-37) Red Cell Distribution Width 15.4 % (11.5-14.5) Platelet Count 203 x10^3/uL (140-400) Neutrophils (%) (Auto) 91 % (31-73) Lymphocytes (%) (Auto) 3 % (24-48) Monocytes (%) (Auto) 5 % (0-9) Eosinophils (%) (Auto) 1 % (0-3) Basophils (%) (Auto) 1 % (0-3) Neutrophils # (Auto) 10.4 x10^3/uL (1.8-7.7) Lymphocytes # (Auto) 0.3 x10^3/uL (1.0-4.8) Monocytes # (Auto) 0.6 x10^3/uL (0.0-1.1) Eosinophils # (Auto) 0.1 x10^3/uL (0.0-0.7) Basophils # (Auto) 0.1 x10^3/uL (0.0-0.2) Segmented Neutrophils % 80 % (35-66) Band Neutrophils % 8 % (0-9) Lymphocytes % 3 % (24-48) Monocytes % 8 % (0-10) Eosinophils % 1 % (0-5) Platelet Estimate Adequate (ADEQUATE) Prothrombin Time 14.4 SEC (11.7-14.0) Prothromb Time International Ratio 1.2 (0.8-1.1) Sodium Level 145 mmol/L (136-145) Potassium Level 4.3 mmol/L (3.5-5.1) Chloride Level 106 mmol/L (98-107) Carbon Dioxide Level 29 mmol/L (21-32) Anion Gap 10 (6-14) Blood Urea Nitrogen 15 mg/dL (8-26) Creatinine 1.5 mg/dL (0.7-1.3) Estimated GFR (Cockcroft-Gault) 46.0 BUN/Creatinine Ratio 10 (6-20) Glucose Level 183 mg/dL (70-99) Lactic Acid Level 1.4 mmol/L (0.4-2.0) Calcium Level 8.3 mg/dL (8.5-10.1) Magnesium Level 1.6 mg/dL (1.8-2.4) Total Bilirubin 1.1 mg/dL (0.2-1.0) Aspartate Amino Transf (AST/SGOT) 22 U/L (15-37) Alanine Aminotransferase (ALT/SGPT) 28 U/L (16-63) Alkaline Phosphatase 125 U/L (46-116) Troponin I Quantitative 0.149 ng/mL (0.000-0.055) 0.221 ng/mL (0.000-0.055) ZV-Gol-D-Type Natriuretic Peptide 9797 pg/mL (0-124) Total Protein 7.0 g/dL (6.4-8.2) Albumin 3.6 g/dL (3.4-5.0) Albumin/Globulin Ratio 1.1 (1.0-1.7) Triglycerides Level 122 mg/dL (0-150) Cholesterol Level 144 mg/dL (0-200) LDL Cholesterol, Calculated 86 mg/dL (0-100) VLDL Cholesterol, Calculated 24 mg/dL (0-40) Non-HDL Cholesterol Calculated 110 mg/dL (0-129) HDL Cholesterol 34 mg/dL (40-60) Cholesterol/HDL Ratio 4.2 Procalcitonin < 0.10 ng/mL (0.00-0.10) Thyroid Stimulating Hormone (TSH) 2.060 uIU/mL (0.358-3.74) O2 Saturation 95 % (92-99) Arterial Blood pH 7.34 (7.35-7.45) Arterial Blood pCO2 at Patient Temp 48 mmHg (35-46) Arterial Blood pO2 at Patient Temp 80 mmHg (65-108) Arterial Blood HCO3 25 mmol/L (21-28) Arterial Blood Base Excess -1 mmol/L (-3-3) FiO2 50 bipap Test 05/17/19 17:00 05/17/19 17:40 Urine Collection Type Unknown Urine Color Yellow Urine Clarity Clear Urine pH 5.0 (<5.0-8.0) Urine Specific [place] 1.015 (1.000-1.030) Urine Protein Negative mg/dL (NEG-TRACE) Urine Glucose (UA) Negative mg/dL (NEG) Urine Ketones (Stick) Negative mg/dL (NEG) Urine Blood Negative (NEG) Urine Nitrite Negative (NEG) Urine Bilirubin Negative (NEG) Urine Urobilinogen Dipstick 0.2 mg/dL (0.2 mg/dL) Urine Leukocyte Esterase Negative (NEG) Urine RBC 0 /HPF (0-2) Urine WBC Rare /HPF (0-4) Urine Squamous Epithelial Cells Occ /LPF Urine Bacteria 0 /HPF (0-FEW) Urine Hyaline Casts Occasional /HPF Urine Mucus Mod /LPF Troponin I Quantitative 0.143 ng/mL (0.000-0.055) Laboratory Tests Test 05/17/19 09:30 05/17/19 09:42 05/17/19 09:45 05/17/19 14:20 Influenza Type A Antigen Negative (NEGATIVE) Influenza Type B Antigen Negative (NEGATIVE) White Blood Count 11.5 x10^3/uL (4.0-11.0) Red Blood Count 5.69 x10^6/uL (4.30-5.70) Hemoglobin 16.7 g/dL (13.0-17.5) Hematocrit 50.1 % (39.0-53.0) Mean Corpuscular Volume 88 fL (79-100) Mean Corpuscular Hemoglobin 29 pg (25-35) Mean Corpuscular Hemoglobin Concent 33 g/dL (31-37) Red Cell Distribution Width 15.4 % (11.5-14.5) Platelet Count 203 x10^3/uL (140-400) Neutrophils (%) (Auto) 91 % (31-73) Lymphocytes (%) (Auto) 3 % (24-48) Monocytes (%) (Auto) 5 % (0-9) Eosinophils (%) (Auto) 1 % (0-3) Basophils (%) (Auto) 1 % (0-3) Neutrophils # (Auto) 10.4 x10^3/uL (1.8-7.7) Lymphocytes # (Auto) 0.3 x10^3/uL (1.0-4.8) Monocytes # (Auto) 0.6 x10^3/uL (0.0-1.1) Eosinophils # (Auto) 0.1 x10^3/uL (0.0-0.7) Basophils # (Auto) 0.1 x10^3/uL (0.0-0.2) Segmented Neutrophils % 80 % (35-66) Band Neutrophils % 8 % (0-9) Lymphocytes % 3 % (24-48) Monocytes % 8 % (0-10) Eosinophils % 1 % (0-5) Platelet Estimate Adequate (ADEQUATE) Prothrombin Time 14.4 SEC (11.7-14.0) Prothromb Time International Ratio 1.2 (0.8-1.1) Sodium Level 145 mmol/L (136-145) Potassium Level 4.3 mmol/L (3.5-5.1) Chloride Level 106 mmol/L (98-107) Carbon Dioxide Level 29 mmol/L (21-32) Anion Gap 10 (6-14) Blood Urea Nitrogen 15 mg/dL (8-26) Creatinine 1.5 mg/dL (0.7-1.3) Estimated GFR (Cockcroft-Gault) 46.0 BUN/Creatinine Ratio 10 (6-20) Glucose Level 183 mg/dL (70-99) Lactic Acid Level 1.4 mmol/L (0.4-2.0) Calcium Level 8.3 mg/dL (8.5-10.1) Magnesium Level 1.6 mg/dL (1.8-2.4) Total Bilirubin 1.1 mg/dL (0.2-1.0) Aspartate Amino Transf (AST/SGOT) 22 U/L (15-37) Alanine Aminotransferase (ALT/SGPT) 28 U/L (16-63) Alkaline Phosphatase 125 U/L (46-116) Troponin I Quantitative 0.149 ng/mL (0.000-0.055) 0.221 ng/mL (0.000-0.055) AI-Vtp-O-Type Natriuretic Peptide 9797 pg/mL (0-124) Total Protein 7.0 g/dL (6.4-8.2) Albumin 3.6 g/dL (3.4-5.0) Albumin/Globulin Ratio 1.1 (1.0-1.7) Triglycerides Level 122 mg/dL (0-150) Cholesterol Level 144 mg/dL (0-200) LDL Cholesterol, Calculated 86 mg/dL (0-100) VLDL Cholesterol, Calculated 24 mg/dL (0-40) Non-HDL Cholesterol Calculated 110 mg/dL (0-129) HDL Cholesterol 34 mg/dL (40-60) Cholesterol/HDL Ratio 4.2 Procalcitonin < 0.10 ng/mL (0.00-0.10) Thyroid Stimulating Hormone (TSH) 2.060 uIU/mL (0.358-3.74) O2 Saturation 95 % (92-99) Arterial Blood pH 7.34 (7.35-7.45) Arterial Blood pCO2 at Patient Temp 48 mmHg (35-46) Arterial Blood pO2 at Patient Temp 80 mmHg (65-108) Arterial Blood HCO3 25 mmol/L (21-28) Arterial Blood Base Excess -1 mmol/L (-3-3) FiO2 50 bipap Test 05/17/19 17:00 05/17/19 17:40 Urine Collection Type Unknown Urine Color Yellow Urine Clarity Clear Urine pH 5.0 (<5.0-8.0) Urine Specific [place] 1.015 (1.000-1.030) Urine Protein Negative mg/dL (NEG-TRACE) Urine Glucose (UA) Negative mg/dL (NEG) Urine Ketones (Stick) Negative mg/dL (NEG) Urine Blood Negative (NEG) Urine Nitrite Negative (NEG) Urine Bilirubin Negative (NEG) Urine Urobilinogen Dipstick 0.2 mg/dL (0.2 mg/dL) Urine Leukocyte Esterase Negative (NEG) Urine RBC 0 /HPF (0-2) Urine WBC Rare /HPF (0-4) Urine Squamous Epithelial Cells Occ /LPF Urine Bacteria 0 /HPF (0-FEW) Urine Hyaline Casts Occasional /HPF Urine Mucus Mod /LPF Troponin I Quantitative 0.143 ng/mL (0.000-0.055) Medications Active Scripts Medications Dose Route/Sig Max Daily Dose Days Date Category Dicyclomine Hcl 10 Mg Capsule 1 Cap PO PRN TID PRN 05/17/19 Reported Nexium Capsule (Esomeprazole Magnesium) 40 Mg Capsule.dr 40 Mg PO DAILYAC 05/17/19 Reported Oxycodone Hcl Immed.release (Oxycodone Hcl) 15 Mg Tablet 15 Mg PO PRN Q12HR PRN 05/17/19 Reported Benazepril Hcl 40 Mg Tablet 1 Tab PO DAILY 02/05/17 Reported Amlodipine Besylate 10 Mg Tablet 10 Mg PO DAILY 02/05/17 Reported Alprazolam 1 Mg Tablet 1 Tab PO BID 02/05/17 Reported Hydrocortisone 453.6 Gm Cream..g. 1 Laura TP PRN BID 02/05/17 Reported Impression . FULL NOTE DICTATED I THINK THIS IS MORE CHF WILL CONTINUE ANTIBX FOR NOW FOR POSSIBLE PNEUMONIA JUAN J CLARK MD May 17, 2019 19:49
--- NOTE | 2019-05-17 20:09 | CONS ---
DATE OF CONSULTATION: 05/17/2019 ATTENDING PHYSICIAN: Dr. Jimenez No. CONSULTING PHYSICIAN: Dr. Juan J Clark. REASON FOR CONSULTATION: The patient seen in pulmonary consultation at the request of Dr. No for increasing shortness of air, abnormal CT chest. HISTORY OF PRESENT ILLNESS: The patient is 73-year-old who has been short of breath now for quite some time. He has had shortness of breath on and off. He was mainly dyspneic upon lying down, some paroxysmal nocturnal dyspnea, pedal edema. He does have a history of anxiety. He says that he took some Xanax, which seemed to help, but then shortness of air returned. He was admitted. I was asked to see him in consultation. The patient had an arterial blood gas revealing a pH of 7.34, PaCO2 of 48, PaO2 of 80 on BiPAP. His white count was slightly elevated. Serology for influenza was negative. He had a CT chest, I personally reviewed. There is left lower lobe pneumonia. Additional findings compatible with CHF, some cardiomegaly and some bilateral effusions. The patient is currently being treated with diuresis, was off of BiPAP. He is receiving IV antibiotics along with IV Lasix. I was asked to see him in consultation. PAST MEDICAL HISTORY: No diagnosis of COPD. He quit tobacco in 1988. He has a history of hypertension. No previous CHF. He does have some prior history of cholelithiasis, osteoarthritis, anxiety, benign prostatic hypertrophy. PAST SURGICAL HISTORY: Cervical laminectomy. He has also had some benign colon polypectomy status post cholecystectomy. SOCIAL HISTORY: He quit tobacco in 1988. FAMILY HISTORY: Remarkable for myocardial infarction. Mother had lung cancer, diabetes and coronary artery disease. REVIEW OF SYSTEMS: CONSTITUTIONAL: No fever or chills. EYES: No change in visual acuity. HENT: No nasal congestion or sore throat. PULMONARY: As indicated above. CARDIOVASCULAR: No chest pain. No pressure. GASTROINTESTINAL: No nausea, vomiting, diarrhea. GENITOURINARY: No dysuria or frequency. MUSCULOSKELETAL: No localized muscle aches or joint pain. CURRENT MEDICATION: List was reviewed. ALLERGIES: SULFA, FENTANYL, AND VALACYCLOVIR. PHYSICAL EXAMINATION: VITAL SIGNS: Stable. O2 saturation was greater than 92%. HEENT: Eyes, the sclerae were nonicteric. NECK: Jugular venous distention was not elevated. No lymphadenopathy. CHEST: Full expansion. LUNGS: Diminished breath sounds in the bases with some slight crackles. CARDIOVASCULAR: Regular rate and rhythm with S1, S2, no S3. ABDOMEN: Soft, nontender. EXTREMITIES: No clubbing, cyanosis. Minimal edema. NEUROLOGIC: The patient was awake, alert, following commands. A detailed neuro exam was not performed. LABORATORY DATA: Reviewed. White count was 11,000, hemoglobin and hematocrit were noted. Electrolytes were noted. BUN and creatinine were noted. Troponin was elevated. BNP was elevated. Serology for influenza was negative. IMPRESSION: 1. Acute hypoxemic respiratory failure, multifactorial secondary to acute congestive heart failure. 2. Possible pneumonia, gram negative/gram positive. 3. Mild acute exacerbation of chronic obstructive pulmonary disease. 4. Morbid obesity. 5. Fever workup in process. [id number] testing pending. 2. Acute kidney injury. 3. Accelerated hypertension. 4. Mild elevation in troponin. PLAN: 1. Continue current IV. Continue p.r.n. BiPAP. 2. Diurese. 3. Empiric antibiotics. 4. Follow up on [id number] testing. I do appreciate the privilege in sharing in the patient's care. JUAN J CLARK MD DR: KLEBER/sarbjit JOB#: [id number] / [id number]
[2019-05-17] MEDS: ALPRAZolam 1 MG TABLET PO SCH (21:00)
[2019-05-17] MEDS: DOXYCYCLINE HYCLATE 100 MG TABLET PO SCH (21:06)
[2019-05-17 23:52] VITALS: BP 112/58
[2019-05-18] VITALS (25 sets, daily range): BP systolic 86–164; BP diastolic 54–108
--- NOTE | 2019-05-18 03:11 | EKG ---
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
[2019-05-18] MEDS ORDERED: dilTIAZem IV PUSH 25 MG/5 ML VIAL IVP ONE (03:30)
[2019-05-18] MEDS: dilTIAZem INJ 125 MG in IV NORMAL SALINE 100ML 100 ML IV PRN ×3 (03:53→17:51)
[2019-05-18 05:37] LABS: BASO % 0 % (0-3); EOS % 0 % (0-3); HEMOGLOBIN 14.6 g/dL (13.0-17.5); LYMPH # 0.6 x10^3/uL (1.0-4.8); LYMPH % 6 % (24-48); MEAN CORPUSCULAR HEMOGLOBIN 29 pg (25-35); MEAN CORPUSCULAR HGB CONC 33 g/dL (31-37); MEAN CORPUSCULAR VOLUME 87 fL (79-100); MONO # 0.6 x10^3/uL (0.0-1.1); MONO % 6 % (0-9); NEUT # 9.1 x10^3/uL (1.8-7.7); NEUT % 88 % (31-73); PLATELET COUNT 192 x10^3/uL (140-400); RED BLOOD COUNT 5.04 x10^6/uL (4.30-5.70); RED CELL DISTRIBUTION WIDTH 14.9 % (11.5-14.5); WHITE BLOOD COUNT 10.3 x10^3/uL (4.0-11.0)
[2019-05-18 05:59] LABS: CALCIUM 8.4 mg/dL (8.5-10.1); CREATININE 1.4 mg/dL (0.7-1.3); GFR 49.8; MAGNESIUM 1.8 mg/dL (1.8-2.4); POTASSIUM 3.6 mmol/L (3.5-5.1)
--- NOTE | 2019-05-18 07:23 | NUR ---
IP: Pt being tested for COVID-19. Pt to be in droplet/contact precautions using a face shield until resutls verified.
[2019-05-18] MEDS: DOXYCYCLINE HYCLATE 100 MG TABLET PO SCH ×2 (09:00→21:06)
[2019-05-18] MEDS: LISINOPRIL 20 MG TABLET PO SCH (09:00)
[2019-05-18] MEDS ORDERED: amLODIPine BESYLATE 5 MG TABLET PO SCH (09:00)
[2019-05-18] MEDS: ALPRAZolam 1 MG TABLET PO SCH ×2 (09:00→21:06)
[2019-05-18] MEDS: PANTOPRAZOLE 40 MG TABLET.DR. PO SCH (09:01)
[2019-05-18] MEDS: CARVEDILOL 6.25 MG TABLET. PO SCH (09:04)
[2019-05-18] MEDS: cefTRIAXone IV Push 1 GM VIAL. IVP SCH (09:04)
[2019-05-18] MEDS: FUROSEMIDE 40 MG/4 ML VIAL. IVP SCH (09:04)
--- NOTE | 2019-05-18 09:04 | PDOC ---
PULMONARY PROGRESS NOTES Subjective PT NOT MORE SOA NO CHEST PAIN Vitals Vital Signs Date Time Temp Pulse Resp B/P (MAP) Pulse Ox O2 Delivery O2 Flow Rate FiO2 05/18/19 07:10 97.9 99 20 115/90 (98) 96 Nasal Cannula 2.0 97.9 ROS: No Nausea, No Chest Pain, No Abdominal Pain, No Increase Cough Lungs: Crackles Cardiovascular: S1, S2 Abdomen: Soft Extremities: Other (EDEMA) Skin: Warm Labs Laboratory Tests Test 05/17/19 09:30 05/17/19 09:42 05/17/19 09:45 05/17/19 14:20 Influenza Type A Antigen Negative (NEGATIVE) Influenza Type B Antigen Negative (NEGATIVE) White Blood Count 11.5 x10^3/uL (4.0-11.0) Red Blood Count 5.69 x10^6/uL (4.30-5.70) Hemoglobin 16.7 g/dL (13.0-17.5) Hematocrit 50.1 % (39.0-53.0) Mean Corpuscular Volume 88 fL (79-100) Mean Corpuscular Hemoglobin 29 pg (25-35) Mean Corpuscular Hemoglobin Concent 33 g/dL (31-37) Red Cell Distribution Width 15.4 % (11.5-14.5) Platelet Count 203 x10^3/uL (140-400) Neutrophils (%) (Auto) 91 % (31-73) Lymphocytes (%) (Auto) 3 % (24-48) Monocytes (%) (Auto) 5 % (0-9) Eosinophils (%) (Auto) 1 % (0-3) Basophils (%) (Auto) 1 % (0-3) Neutrophils # (Auto) 10.4 x10^3/uL (1.8-7.7) Lymphocytes # (Auto) 0.3 x10^3/uL (1.0-4.8) Monocytes # (Auto) 0.6 x10^3/uL (0.0-1.1) Eosinophils # (Auto) 0.1 x10^3/uL (0.0-0.7) Basophils # (Auto) 0.1 x10^3/uL (0.0-0.2) Segmented Neutrophils % 80 % (35-66) Band Neutrophils % 8 % (0-9) Lymphocytes % 3 % (24-48) Monocytes % 8 % (0-10) Eosinophils % 1 % (0-5) Platelet Estimate Adequate (ADEQUATE) Prothrombin Time 14.4 SEC (11.7-14.0) Prothromb Time International Ratio 1.2 (0.8-1.1) Sodium Level 145 mmol/L (136-145) Potassium Level 4.3 mmol/L (3.5-5.1) Chloride Level 106 mmol/L (98-107) Carbon Dioxide Level 29 mmol/L (21-32) Anion Gap 10 (6-14) Blood Urea Nitrogen 15 mg/dL (8-26) Creatinine 1.5 mg/dL (0.7-1.3) Estimated GFR (Cockcroft-Gault) 46.0 BUN/Creatinine Ratio 10 (6-20) Glucose Level 183 mg/dL (70-99) Lactic Acid Level 1.4 mmol/L (0.4-2.0) Calcium Level 8.3 mg/dL (8.5-10.1) Magnesium Level 1.6 mg/dL (1.8-2.4) Total Bilirubin 1.1 mg/dL (0.2-1.0) Aspartate Amino Transf (AST/SGOT) 22 U/L (15-37) Alanine Aminotransferase (ALT/SGPT) 28 U/L (16-63) Alkaline Phosphatase 125 U/L (46-116) Troponin I Quantitative 0.149 ng/mL (0.000-0.055) 0.221 ng/mL (0.000-0.055) XJ-Lsb-F-Type Natriuretic Peptide 9797 pg/mL (0-124) Total Protein 7.0 g/dL (6.4-8.2) Albumin 3.6 g/dL (3.4-5.0) Albumin/Globulin Ratio 1.1 (1.0-1.7) Triglycerides Level 122 mg/dL (0-150) Cholesterol Level 144 mg/dL (0-200) LDL Cholesterol, Calculated 86 mg/dL (0-100) VLDL Cholesterol, Calculated 24 mg/dL (0-40) Non-HDL Cholesterol Calculated 110 mg/dL (0-129) HDL Cholesterol 34 mg/dL (40-60) Cholesterol/HDL Ratio 4.2 Procalcitonin < 0.10 ng/mL (0.00-0.10) Thyroid Stimulating Hormone (TSH) 2.060 uIU/mL (0.358-3.74) O2 Saturation 95 % (92-99) Arterial Blood pH 7.34 (7.35-7.45) Arterial Blood pCO2 at Patient Temp 48 mmHg (35-46) Arterial Blood pO2 at Patient Temp 80 mmHg (65-108) Arterial Blood HCO3 25 mmol/L (21-28) Arterial Blood Base Excess -1 mmol/L (-3-3) FiO2 50 bipap Test 05/17/19 17:00 05/17/19 17:40 05/18/19 05:15 Urine Collection Type Unknown Urine Color Yellow Urine Clarity Clear Urine pH 5.0 (<5.0-8.0) Urine Specific [place] 1.015 (1.000-1.030) Urine Protein Negative mg/dL (NEG-TRACE) Urine Glucose (UA) Negative mg/dL (NEG) Urine Ketones (Stick) Negative mg/dL (NEG) Urine Blood Negative (NEG) Urine Nitrite Negative (NEG) Urine Bilirubin Negative (NEG) Urine Urobilinogen Dipstick 0.2 mg/dL (0.2 mg/dL) Urine Leukocyte Esterase Negative (NEG) Urine RBC 0 /HPF (0-2) Urine WBC Rare /HPF (0-4) Urine Squamous Epithelial Cells Occ /LPF Urine Bacteria 0 /HPF (0-FEW) Urine Hyaline Casts Occasional /HPF Urine Mucus Mod /LPF Troponin I Quantitative 0.143 ng/mL (0.000-0.055) White Blood Count 10.3 x10^3/uL (4.0-11.0) Red Blood Count 5.04 x10^6/uL (4.30-5.70) Hemoglobin 14.6 g/dL (13.0-17.5) Hematocrit 44.0 % (39.0-53.0) Mean Corpuscular Volume 87 fL (79-100) Mean Corpuscular Hemoglobin 29 pg (25-35) Mean Corpuscular Hemoglobin Concent 33 g/dL (31-37) Red Cell Distribution Width 14.9 % (11.5-14.5) Platelet Count 192 x10^3/uL (140-400) Neutrophils (%) (Auto) 88 % (31-73) Lymphocytes (%) (Auto) 6 % (24-48) Monocytes (%) (Auto) 6 % (0-9) Eosinophils (%) (Auto) 0 % (0-3) Basophils (%) (Auto) 0 % (0-3) Neutrophils # (Auto) 9.1 x10^3/uL (1.8-7.7) Lymphocytes # (Auto) 0.6 x10^3/uL (1.0-4.8) Monocytes # (Auto) 0.6 x10^3/uL (0.0-1.1) Eosinophils # (Auto) 0.0 x10^3/uL (0.0-0.7) Basophils # (Auto) 0.0 x10^3/uL (0.0-0.2) Sodium Level 145 mmol/L (136-145) Potassium Level 3.6 mmol/L (3.5-5.1) Chloride Level 108 mmol/L (98-107) Carbon Dioxide Level 26 mmol/L (21-32) Anion Gap 11 (6-14) Blood Urea Nitrogen 27 mg/dL (8-26) Creatinine 1.4 mg/dL (0.7-1.3) Estimated GFR (Cockcroft-Gault) 49.8 Glucose Level 146 mg/dL (70-99) Calcium Level 8.4 mg/dL (8.5-10.1) Magnesium Level 1.8 mg/dL (1.8-2.4) Laboratory Tests Test 05/17/19 09:30 05/17/19 09:42 05/17/19 09:45 05/17/19 14:20 Influenza Type A Antigen Negative (NEGATIVE) Influenza Type B Antigen Negative (NEGATIVE) White Blood Count 11.5 x10^3/uL (4.0-11.0) Red Blood Count 5.69 x10^6/uL (4.30-5.70) Hemoglobin 16.7 g/dL (13.0-17.5) Hematocrit 50.1 % (39.0-53.0) Mean Corpuscular Volume 88 fL (79-100) Mean Corpuscular Hemoglobin 29 pg (25-35) Mean Corpuscular Hemoglobin Concent 33 g/dL (31-37) Red Cell Distribution Width 15.4 % (11.5-14.5) Platelet Count 203 x10^3/uL (140-400) Neutrophils (%) (Auto) 91 % (31-73) Lymphocytes (%) (Auto) 3 % (24-48) Monocytes (%) (Auto) 5 % (0-9) Eosinophils (%) (Auto) 1 % (0-3) Basophils (%) (Auto) 1 % (0-3) Neutrophils # (Auto) 10.4 x10^3/uL (1.8-7.7) Lymphocytes # (Auto) 0.3 x10^3/uL (1.0-4.8) Monocytes # (Auto) 0.6 x10^3/uL (0.0-1.1) Eosinophils # (Auto) 0.1 x10^3/uL (0.0-0.7) Basophils # (Auto) 0.1 x10^3/uL (0.0-0.2) Segmented Neutrophils % 80 % (35-66) Band Neutrophils % 8 % (0-9) Lymphocytes % 3 % (24-48) Monocytes % 8 % (0-10) Eosinophils % 1 % (0-5) Platelet Estimate Adequate (ADEQUATE) Prothrombin Time 14.4 SEC (11.7-14.0) Prothromb Time International Ratio 1.2 (0.8-1.1) Sodium Level 145 mmol/L (136-145) Potassium Level 4.3 mmol/L (3.5-5.1) Chloride Level 106 mmol/L (98-107) Carbon Dioxide Level 29 mmol/L (21-32) Anion Gap 10 (6-14) Blood Urea Nitrogen 15 mg/dL (8-26) Creatinine 1.5 mg/dL (0.7-1.3) Estimated GFR (Cockcroft-Gault) 46.0 BUN/Creatinine Ratio 10 (6-20) Glucose Level 183 mg/dL (70-99) Lactic Acid Level 1.4 mmol/L (0.4-2.0) Calcium Level 8.3 mg/dL (8.5-10.1) Magnesium Level 1.6 mg/dL (1.8-2.4) Total Bilirubin 1.1 mg/dL (0.2-1.0) Aspartate Amino Transf (AST/SGOT) 22 U/L (15-37) Alanine Aminotransferase (ALT/SGPT) 28 U/L (16-63) Alkaline Phosphatase 125 U/L (46-116) Troponin I Quantitative 0.149 ng/mL (0.000-0.055) 0.221 ng/mL (0.000-0.055) VV-Ytl-Y-Type Natriuretic Peptide 9797 pg/mL (0-124) Total Protein 7.0 g/dL (6.4-8.2) Albumin 3.6 g/dL (3.4-5.0) Albumin/Globulin Ratio 1.1 (1.0-1.7) Triglycerides Level 122 mg/dL (0-150) Cholesterol Level 144 mg/dL (0-200) LDL Cholesterol, Calculated 86 mg/dL (0-100) VLDL Cholesterol, Calculated 24 mg/dL (0-40) Non-HDL Cholesterol Calculated 110 mg/dL (0-129) HDL Cholesterol 34 mg/dL (40-60) Cholesterol/HDL Ratio 4.2 Procalcitonin < 0.10 ng/mL (0.00-0.10) Thyroid Stimulating Hormone (TSH) 2.060 uIU/mL (0.358-3.74) O2 Saturation 95 % (92-99) Arterial Blood pH 7.34 (7.35-7.45) Arterial Blood pCO2 at Patient Temp 48 mmHg (35-46) Arterial Blood pO2 at Patient Temp 80 mmHg (65-108) Arterial Blood HCO3 25 mmol/L (21-28) Arterial Blood Base Excess -1 mmol/L (-3-3) FiO2 50 bipap Test 05/17/19 17:00 05/17/19 17:40 05/18/19 05:15 Urine Collection Type Unknown Urine Color Yellow Urine Clarity Clear Urine pH 5.0 (<5.0-8.0) Urine Specific [place] 1.015 (1.000-1.030) Urine Protein Negative mg/dL (NEG-TRACE) Urine Glucose (UA) Negative mg/dL (NEG) Urine Ketones (Stick) Negative mg/dL (NEG) Urine Blood Negative (NEG) Urine Nitrite Negative (NEG) Urine Bilirubin Negative (NEG) Urine Urobilinogen Dipstick 0.2 mg/dL (0.2 mg/dL) Urine Leukocyte Esterase Negative (NEG) Urine RBC 0 /HPF (0-2) Urine WBC Rare /HPF (0-4) Urine Squamous Epithelial Cells Occ /LPF Urine Bacteria 0 /HPF (0-FEW) Urine Hyaline Casts Occasional /HPF Urine Mucus Mod /LPF Troponin I Quantitative 0.143 ng/mL (0.000-0.055) White Blood Count 10.3 x10^3/uL (4.0-11.0) Red Blood Count 5.04 x10^6/uL (4.30-5.70) Hemoglobin 14.6 g/dL (13.0-17.5) Hematocrit 44.0 % (39.0-53.0) Mean Corpuscular Volume 87 fL (79-100) Mean Corpuscular Hemoglobin 29 pg (25-35) Mean Corpuscular Hemoglobin Concent 33 g/dL (31-37) Red Cell Distribution Width 14.9 % (11.5-14.5) Platelet Count 192 x10^3/uL (140-400) Neutrophils (%) (Auto) 88 % (31-73) Lymphocytes (%) (Auto) 6 % (24-48) Monocytes (%) (Auto) 6 % (0-9) Eosinophils (%) (Auto) 0 % (0-3) Basophils (%) (Auto) 0 % (0-3) Neutrophils # (Auto) 9.1 x10^3/uL (1.8-7.7) Lymphocytes # (Auto) 0.6 x10^3/uL (1.0-4.8) Monocytes # (Auto) 0.6 x10^3/uL (0.0-1.1) Eosinophils # (Auto) 0.0 x10^3/uL (0.0-0.7) Basophils # (Auto) 0.0 x10^3/uL (0.0-0.2) Sodium Level 145 mmol/L (136-145) Potassium Level 3.6 mmol/L (3.5-5.1) Chloride Level 108 mmol/L (98-107) Carbon Dioxide Level 26 mmol/L (21-32) Anion Gap 11 (6-14) Blood Urea Nitrogen 27 mg/dL (8-26) Creatinine 1.4 mg/dL (0.7-1.3) Estimated GFR (Cockcroft-Gault) 49.8 Glucose Level 146 mg/dL (70-99) Calcium Level 8.4 mg/dL (8.5-10.1) Magnesium Level 1.8 mg/dL (1.8-2.4) Medications Active Scripts Medications Dose Route/Sig Max Daily Dose Days Date Category Dicyclomine Hcl 10 Mg Capsule 1 Cap PO PRN TID PRN 05/17/19 Reported Nexium Capsule (Esomeprazole Magnesium) 40 Mg Capsule.dr 40 Mg PO DAILYAC 05/17/19 Reported Oxycodone Hcl Immed.release (Oxycodone Hcl) 15 Mg Tablet 15 Mg PO PRN Q12HR PRN 05/17/19 Reported Benazepril Hcl 40 Mg Tablet 1 Tab PO DAILY 02/05/17 Reported Amlodipine Besylate 10 Mg Tablet 10 Mg PO DAILY 02/05/17 Reported Alprazolam 1 Mg Tablet 1 Tab PO BID 02/05/17 Reported Hydrocortisone 453.6 Gm Cream..g. 1 Laura TP PRN BID 02/05/17 Reported Impression . IMPRESSION: 1. Acute hypoxemic respiratory failure, multifactorial secondary to acute congestive heart failure. 2. Possible pneumonia, gram negative/gram positive. 3. Mild acute exacerbation of chronic obstructive pulmonary disease. 4. Morbid obesity. 5. Fever workup in process. [id number] testing pending. 2. Acute kidney injury. 3. Accelerated hypertension. 4. Mild elevation in troponin. 9. AFIB WITH RVR Plan . NOW ON IV CARDIZEM FOR A FIB RVR WILL CONTINUE THE SAME ANTI BX SEE BELOW 1. Continue current IV. Continue p.r.n. BiPAP. 2. Diurese. 3. Empiric antibiotics. 4. Follow up on [id number]-4 testing. JUAN J CLARK MD May 18, 2019 09:04
--- NOTE | 2019-05-18 09:28 | PDOC ---
Infectious Disease Note Vital Signs: Vital Signs Vital Signs Date Time Temp Pulse Resp B/P (MAP) Pulse Ox O2 Delivery O2 Flow Rate FiO2 05/18/19 09:04 120 134/103 05/18/19 07:10 97.9 20 96 Nasal Cannula 2.0 97.9 Medications: Inpatient Meds: Current Medications Medications (Trade) Dose Ordered Sig/Chance Start Time Stop Time Status Last Admin Dose Admin Acetaminophen (Tylenol) 650 mg PRN Q6HRS PRN 05/17/19 14:45 Albuterol/ Ipratropium (Duoneb) 3 ml 1X ONCE 05/17/19 08:15 05/17/19 08:16 DC 05/17/19 09:00 3 ML Alprazolam (Xanax) 1 mg BID 05/17/19 21:00 Amlodipine Besylate (Norvasc) 5 mg DAILY 05/18/19 09:00 05/18/19 09:01 5 MG Aspirin (Children'S Aspirin) 324 mg 1X ONCE 05/17/19 10:45 05/17/19 10:46 DC 05/17/19 11:11 324 MG Carvedilol (Coreg) 6.25 mg BIDWMEALS 05/17/19 17:00 05/18/19 09:04 6.25 MG Ceftriaxone Sodium (Rocephin) 1 gm Q24H 05/18/19 09:00 05/18/19 09:04 1 GM Diltiazem HCl (Cardizem Iv Push) 20 mg 1X ONCE 05/18/19 03:30 05/18/19 03:31 DC 05/18/19 03:51 20 MG Diltiazem HCl 125 mg/Sodium Chloride 125 ml @ 0 mls/hr CONT PRN 05/18/19 03:30 05/25/19 03:29 05/18/19 04:23 5 MLS/HR Doxycycline Hyclate (Vibra-Tab) 100 mg BID 05/17/19 21:00 05/18/19 09:00 100 MG Doxycycline Hyclate 100 mg/ Dextrose 100 ml @ 50 mls/hr 1X ONCE 05/17/19 09:00 05/17/19 10:59 DC 05/17/19 09:50 50 MLS/HR Enoxaparin Sodium (Lovenox 30mg Syringe) 30 mg Q24H 05/17/19 14:45 UNV Enoxaparin Sodium (Lovenox 40mg Syringe) 40 mg Q24H 05/17/19 16:00 05/17/19 16:43 40 MG Furosemide (Lasix) 40 mg DAILY 05/18/19 09:00 05/18/19 09:04 40 MG Lisinopril (Prinivil) 40 mg DAILY 05/18/19 09:00 05/18/19 09:00 40 MG Magnesium Sulfate 50 ml @ 25 mls/hr 1X ONCE 05/17/19 15:00 05/17/19 16:59 UNV Methylprednisolone Sodium Succinate (SOLU-Medrol 125MG VIAL) 125 mg 1X ONCE 05/17/19 08:15 05/17/19 08:16 DC 05/17/19 09:49 125 MG Nitroglycerin (Nitro-Bid Oint) 1 inch 1X ONCE 05/17/19 08:45 05/17/19 08:46 DC 05/17/19 09:49 1 INCH Oxycodone HCl (Roxicodone) 15 mg PRN BID PRN 05/17/19 14:45 Pantoprazole Sodium (Protonix) 40 mg DAILYAC 05/18/19 07:30 05/18/19 09:01 40 MG Zolpidem Tartrate (Ambien) 5 mg PRN QHS PRN 05/17/19 19:30 05/17/19 21:06 5 MG Labs: Lab Laboratory Tests Test 05/17/19 09:30 05/17/19 09:42 05/17/19 09:45 05/17/19 14:20 Influenza Type A Antigen Negative (NEGATIVE) Influenza Type B Antigen Negative (NEGATIVE) White Blood Count 11.5 x10^3/uL (4.0-11.0) Red Blood Count 5.69 x10^6/uL (4.30-5.70) Hemoglobin 16.7 g/dL (13.0-17.5) Hematocrit 50.1 % (39.0-53.0) Mean Corpuscular Volume 88 fL (79-100) Mean Corpuscular Hemoglobin 29 pg (25-35) Mean Corpuscular Hemoglobin Concent 33 g/dL (31-37) Red Cell Distribution Width 15.4 % (11.5-14.5) Platelet Count 203 x10^3/uL (140-400) Neutrophils (%) (Auto) 91 % (31-73) Lymphocytes (%) (Auto) 3 % (24-48) Monocytes (%) (Auto) 5 % (0-9) Eosinophils (%) (Auto) 1 % (0-3) Basophils (%) (Auto) 1 % (0-3) Neutrophils # (Auto) 10.4 x10^3/uL (1.8-7.7) Lymphocytes # (Auto) 0.3 x10^3/uL (1.0-4.8) Monocytes # (Auto) 0.6 x10^3/uL (0.0-1.1) Eosinophils # (Auto) 0.1 x10^3/uL (0.0-0.7) Basophils # (Auto) 0.1 x10^3/uL (0.0-0.2) Segmented Neutrophils % 80 % (35-66) Band Neutrophils % 8 % (0-9) Lymphocytes % 3 % (24-48) Monocytes % 8 % (0-10) Eosinophils % 1 % (0-5) Platelet Estimate Adequate (ADEQUATE) Prothrombin Time 14.4 SEC (11.7-14.0) Prothromb Time International Ratio 1.2 (0.8-1.1) Sodium Level 145 mmol/L (136-145) Potassium Level 4.3 mmol/L (3.5-5.1) Chloride Level 106 mmol/L (98-107) Carbon Dioxide Level 29 mmol/L (21-32) Anion Gap 10 (6-14) Blood Urea Nitrogen 15 mg/dL (8-26) Creatinine 1.5 mg/dL (0.7-1.3) Estimated GFR (Cockcroft-Gault) 46.0 BUN/Creatinine Ratio 10 (6-20) Glucose Level 183 mg/dL (70-99) Lactic Acid Level 1.4 mmol/L (0.4-2.0) Calcium Level 8.3 mg/dL (8.5-10.1) Magnesium Level 1.6 mg/dL (1.8-2.4) Total Bilirubin 1.1 mg/dL (0.2-1.0) Aspartate Amino Transf (AST/SGOT) 22 U/L (15-37) Alanine Aminotransferase (ALT/SGPT) 28 U/L (16-63) Alkaline Phosphatase 125 U/L (46-116) Troponin I Quantitative 0.149 ng/mL (0.000-0.055) 0.221 ng/mL (0.000-0.055) MM-Sas-G-Type Natriuretic Peptide 9797 pg/mL (0-124) Total Protein 7.0 g/dL (6.4-8.2) Albumin 3.6 g/dL (3.4-5.0) Albumin/Globulin Ratio 1.1 (1.0-1.7) Triglycerides Level 122 mg/dL (0-150) Cholesterol Level 144 mg/dL (0-200) LDL Cholesterol, Calculated 86 mg/dL (0-100) VLDL Cholesterol, Calculated 24 mg/dL (0-40) Non-HDL Cholesterol Calculated 110 mg/dL (0-129) HDL Cholesterol 34 mg/dL (40-60) Cholesterol/HDL Ratio 4.2 Procalcitonin < 0.10 ng/mL (0.00-0.10) Thyroid Stimulating Hormone (TSH) 2.060 uIU/mL (0.358-3.74) O2 Saturation 95 % (92-99) Arterial Blood pH 7.34 (7.35-7.45) Arterial Blood pCO2 at Patient Temp 48 mmHg (35-46) Arterial Blood pO2 at Patient Temp 80 mmHg (65-108) Arterial Blood HCO3 25 mmol/L (21-28) Arterial Blood Base Excess -1 mmol/L (-3-3) FiO2 50 bipap Test 05/17/19 17:00 05/17/19 17:40 05/18/19 05:15 Urine Collection Type Unknown Urine Color Yellow Urine Clarity Clear Urine pH 5.0 (<5.0-8.0) Urine Specific [place] 1.015 (1.000-1.030) Urine Protein Negative mg/dL (NEG-TRACE) Urine Glucose (UA) Negative mg/dL (NEG) Urine Ketones (Stick) Negative mg/dL (NEG) Urine Blood Negative (NEG) Urine Nitrite Negative (NEG) Urine Bilirubin Negative (NEG) Urine Urobilinogen Dipstick 0.2 mg/dL (0.2 mg/dL) Urine Leukocyte Esterase Negative (NEG) Urine RBC 0 /HPF (0-2) Urine WBC Rare /HPF (0-4) Urine Squamous Epithelial Cells Occ /LPF Urine Bacteria 0 /HPF (0-FEW) Urine Hyaline Casts Occasional /HPF Urine Mucus Mod /LPF Troponin I Quantitative 0.143 ng/mL (0.000-0.055) White Blood Count 10.3 x10^3/uL (4.0-11.0) Red Blood Count 5.04 x10^6/uL (4.30-5.70) Hemoglobin 14.6 g/dL (13.0-17.5) Hematocrit 44.0 % (39.0-53.0) Mean Corpuscular Volume 87 fL (79-100) Mean Corpuscular Hemoglobin 29 pg (25-35) Mean Corpuscular Hemoglobin Concent 33 g/dL (31-37) Red Cell Distribution Width 14.9 % (11.5-14.5) Platelet Count 192 x10^3/uL (140-400) Neutrophils (%) (Auto) 88 % (31-73) Lymphocytes (%) (Auto) 6 % (24-48) Monocytes (%) (Auto) 6 % (0-9) Eosinophils (%) (Auto) 0 % (0-3) Basophils (%) (Auto) 0 % (0-3) Neutrophils # (Auto) 9.1 x10^3/uL (1.8-7.7) Lymphocytes # (Auto) 0.6 x10^3/uL (1.0-4.8) Monocytes # (Auto) 0.6 x10^3/uL (0.0-1.1) Eosinophils # (Auto) 0.0 x10^3/uL (0.0-0.7) Basophils # (Auto) 0.0 x10^3/uL (0.0-0.2) Sodium Level 145 mmol/L (136-145) Potassium Level 3.6 mmol/L (3.5-5.1) Chloride Level 108 mmol/L (98-107) Carbon Dioxide Level 26 mmol/L (21-32) Anion Gap 11 (6-14) Blood Urea Nitrogen 27 mg/dL (8-26) Creatinine 1.4 mg/dL (0.7-1.3) Estimated GFR (Cockcroft-Gault) 49.8 Glucose Level 146 mg/dL (70-99) Calcium Level 8.4 mg/dL (8.5-10.1) Magnesium Level 1.8 mg/dL (1.8-2.4) Objective: Assessment: Pt seen and examined ID consult dictated IMP: Fever Leucocytosis Acute hypoxic resp failure Acute CHF Pneumonia chronic pain insomnia [place] Plan: Plan of Care cont ceftriaxone and doxycycline f/u COVID 19 results F/U cults and labs Thank you MARGRET DORSEY MD May 18, 2019 09:28
--- NOTE | 2019-05-18 09:51 | CONS ---
DATE OF CONSULTATION: 05/18/2019 REFERRING PHYSICIAN: Jimenez No MD REASON FOR CONSULTATION: Antibiotic management. HISTORY OF PRESENT ILLNESS: A 73-year-old male who lives at [facility], presented to the ER with complaints of shortness of breath, which started about 2 weeks ago, he got a little better, but then got worse the day prior to admission. The patient denies any sick contact. Denies any fevers upon presentation to the ER, his fever was 101.1 with respiratory rate of 41 and hypoxia. White count was elevated at 11.5. Influenza screen was negative. Creatinine was elevated at 1.5 with a lactate of 1.4. BNP of about 10,000. The patient required FiO2 of 50% on BiPAP. Chest x-ray showed consolidation in the left lung base that may be pneumonia or atelectasis, cardiomegaly with diffuse increased interstitial markings suggestive of interstitial edema or interstitial pneumonia. SARS COVID-19 test was sent from the ER. The patient was placed in droplet precautions. He was started on IV ceftriaxone and doxycycline. ID consult has been requested for antibiotic management. The patient was admitted to Cardiology floor. 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 PAST SURGICAL HISTORY: ACDF 2002 and 2004, cholecystectomy. FAMILY HISTORY: As per HPI. SOCIAL HISTORY: Quit smoking 10 years ago. No alcohol, no drugs. [facility]. CURRENT MEDICATIONS: Ceftriaxone, doxycycline, methylprednisolone, albuterol, aspirin, furosemide. ALLERGIES: SULFA, FENTANYL, VALACYCLOVIR. REVIEW OF SYSTEMS: Negative except for above in HPI. PHYSICAL EXAMINATION: VITAL SIGNS: Temperature 97.9, pulse 120, respiratory rate 20, blood pressure 115/90, oxygen saturation 96% on 2 liters by nasal cannula. GENERAL: Alert and oriented x 3 male lying in bed comfortably, in no acute distress, no accessory muscle use. HEENT: Normocephalic, atraumatic, anicteric. No thrush. NECK: Supple, no JVD. LUNGS: Decreased breath sounds at the bases with crackles. HEART: S1, S2. ABDOMEN: Soft, nontender, no rebound, no guarding. EXTREMITIES: No edema, no cyanosis. DERMATOLOGIC: Warm, dry. No generalized rash. NEUROLOGIC: Alert and oriented x 3, grossly nonfocal. PSYCHIATRIC: Cooperative, appropriate mood and affect. MUSCULOSKELETAL: Changes suggestive of DJD. LABORATORY DATA: WBC 10.3, was 11.5; hematocrit 44; hemoglobin 14.6; platelets 192. Sodium 145, potassium 3.6, chloride 108, bicarbonate 26, BUN 27, creatinine 1.4, lactate 1.4, calcium 8.4. Troponin 0.143. Procalcitonin less than 0.10. TSH 2.060. Influenza screen negative. UA negative. IMAGING: Chest x-ray shows cardiomegaly and diffusely increased interstitial markings. Consideration includes interstitial edema versus interstitial pneumonia. There is consolidation in the left lung base that may represent pneumonia or atelectasis or mass. A CT of the chest shows left lower lobe pneumonia and additional findings of underlying mild CHF and borderline cardiomegaly and bilateral pleural effusion. There does appear to have some improvement in the findings of CHF from the day earlier. IMPRESSION: 1. Febrile illness, source respiratory. 2. Acute hypoxic and hypercarbic respiratory failure likely from acute congestive heart failure. 3. Left lower lobe consolidation, could be viral versus bacterial pneumonia with leukocytosis, left shift and fever. 4. Acute kidney injury. 5. Acute congestive heart failure. 6. Hypertension. 7. Gastroesophageal reflux disease. 8. Chronic pain. RECOMMENDATIONS: 1. Continue IV Rocephin and doxycycline. 2. Follow up COVID-19 test results. 3. Maintain droplet isolation.Maintain aspiration precautions 4. Follow up labs and cultures. 5. Continue supportive care. Thank you, Dr. No, for consulting Infectious Disease to participate in this patient's care. If you have any questions, do not hesitate to contact me. MARGRET DORSEY MD DR: BOWEN/[email or web address] JOB#: [id number] / [id number] ASHLEY
[2019-05-18] MEDS ORDERED: MAGNESIUM SULFATE 2GM 50 ML IV ONE (12:30)
--- NOTE | 2019-05-18 12:41 | PDOC ---
PROGRESS NOTES Subjective Subjective developed acute new onset atrial fibrillation with RVR last night treated with iv diltiazem and bolus and drip and VR was 150 and now 92. bp is okay. feels better. occasional dry cough. lab reviewed. potassium 3.[address] chest noted with LLL pneumonia and chf.,. Objective Objective Vital Signs Date Time Temp Pulse Resp B/P (MAP) Pulse Ox O2 Delivery O2 Flow Rate FiO2 05/18/19 11:00 97.9 87 20 119/80 (93) 98 Nasal Cannula 2.0 97.9 Intake and Output 05/18/19 07:00 Intake Total 700 ml Output Total 800 ml Balance -100 ml Intake Oral 600 ml IV Total 100 ml Output Urine Total 800 ml Physical Exam Abdomen: Soft Heart: Regular rate, Normal S1, Normal S2 Extremities: No edema General: Alert HEENT: Atraumatic Lungs: Other (clear with decreased breath sounds) Neuro: Normal speech Psych/Mental Status: Mental status NL Skin: No rashes Assessment Assessment Problems1. Acute hypoxic and hypercarbic respiratory failure. 2. acute congestive heart failure, unclear if it is systolic or diastolic. echo pendingf 3. Left lower lobe pneumonia 4. acute kidney disease vs chronic kidney disease stage 3. suspect latter. 5. Hypomagnesemia. treated 6. Chest pain. troponin increased 7. Hypertension. 8. Gastroesophageal reflux disease. 9. Chronic pain. new onset a fib with RVR and VR controlled with iv diltiazem Medical Problems: (1) Elevated brain natriuretic peptide (BNP) level Status: Acute (2) Pneumonia Status: Acute Plan Plan of Care continue iv rocephin and doxycycline continue oxygen continue iv lasix start kcl IV magnesium today continue iv diltiazem echocardiogram today continue lisinopril and carvedilol d/c amlodipine lab tomorrow Comment Review of Relevant I have reviewed the following items juan (where applicable) has been applied. Labs Laboratory Tests Test 05/17/19 09:30 05/17/19 09:42 05/17/19 09:45 05/17/19 14:20 Influenza Type A Antigen Negative (NEGATIVE) Influenza Type B Antigen Negative (NEGATIVE) White Blood Count 11.5 x10^3/uL (4.0-11.0) Red Blood Count 5.69 x10^6/uL (4.30-5.70) Hemoglobin 16.7 g/dL (13.0-17.5) Hematocrit 50.1 % (39.0-53.0) Mean Corpuscular Volume 88 fL (79-100) Mean Corpuscular Hemoglobin 29 pg (25-35) Mean Corpuscular Hemoglobin Concent 33 g/dL (31-37) Red Cell Distribution Width 15.4 % (11.5-14.5) Platelet Count 203 x10^3/uL (140-400) Neutrophils (%) (Auto) 91 % (31-73) Lymphocytes (%) (Auto) 3 % (24-48) Monocytes (%) (Auto) 5 % (0-9) Eosinophils (%) (Auto) 1 % (0-3) Basophils (%) (Auto) 1 % (0-3) Neutrophils # (Auto) 10.4 x10^3/uL (1.8-7.7) Lymphocytes # (Auto) 0.3 x10^3/uL (1.0-4.8) Monocytes # (Auto) 0.6 x10^3/uL (0.0-1.1) Eosinophils # (Auto) 0.1 x10^3/uL (0.0-0.7) Basophils # (Auto) 0.1 x10^3/uL (0.0-0.2) Segmented Neutrophils % 80 % (35-66) Band Neutrophils % 8 % (0-9) Lymphocytes % 3 % (24-48) Monocytes % 8 % (0-10) Eosinophils % 1 % (0-5) Platelet Estimate Adequate (ADEQUATE) Prothrombin Time 14.4 SEC (11.7-14.0) Prothromb Time International Ratio 1.2 (0.8-1.1) Sodium Level 145 mmol/L (136-145) Potassium Level 4.3 mmol/L (3.5-5.1) Chloride Level 106 mmol/L (98-107) Carbon Dioxide Level 29 mmol/L (21-32) Anion Gap 10 (6-14) Blood Urea Nitrogen 15 mg/dL (8-26) Creatinine 1.5 mg/dL (0.7-1.3) Estimated GFR (Cockcroft-Gault) 46.0 BUN/Creatinine Ratio 10 (6-20) Glucose Level 183 mg/dL (70-99) Lactic Acid Level 1.4 mmol/L (0.4-2.0) Calcium Level 8.3 mg/dL (8.5-10.1) Magnesium Level 1.6 mg/dL (1.8-2.4) Total Bilirubin 1.1 mg/dL (0.2-1.0) Aspartate Amino Transf (AST/SGOT) 22 U/L (15-37) Alanine Aminotransferase (ALT/SGPT) 28 U/L (16-63) Alkaline Phosphatase 125 U/L (46-116) Troponin I Quantitative 0.149 ng/mL (0.000-0.055) 0.221 ng/mL (0.000-0.055) SE-Zqm-[id number]-Type Natriuretic Peptide 9797 pg/mL (0-124) Total Protein 7.0 g/dL (6.4-8.2) Albumin 3.6 g/dL (3.4-5.0) Albumin/Globulin Ratio 1.1 (1.0-1.7) Triglycerides Level 122 mg/dL (0-150) Cholesterol Level 144 mg/dL (0-200) LDL Cholesterol, Calculated 86 mg/dL (0-100) VLDL Cholesterol, Calculated 24 mg/dL (0-40) Non-HDL Cholesterol Calculated 110 mg/dL (0-129) HDL Cholesterol 34 mg/dL (40-60) Cholesterol/HDL Ratio 4.2 Procalcitonin < 0.10 ng/mL (0.00-0.10) Thyroid Stimulating Hormone (TSH) 2.060 uIU/mL (0.358-3.74) O2 Saturation 95 % (92-99) Arterial Blood pH 7.34 (7.35-7.45) Arterial Blood pCO2 at Patient Temp 48 mmHg (35-46) Arterial Blood pO2 at Patient Temp 80 mmHg (65-108) Arterial Blood HCO3 25 mmol/L (21-28) Arterial Blood Base Excess -1 mmol/L (-3-3) FiO2 50 bipap Test 05/17/19 17:00 05/17/19 17:40 05/18/19 05:15 Urine Collection Type Unknown Urine Color Yellow Urine Clarity Clear Urine pH 5.0 (<5.0-8.0) Urine Specific [place] 1.015 (1.000-1.030) Urine Protein Negative mg/dL (NEG-TRACE) Urine Glucose (UA) Negative mg/dL (NEG) Urine Ketones (Stick) Negative mg/dL (NEG) Urine Blood Negative (NEG) Urine Nitrite Negative (NEG) Urine Bilirubin Negative (NEG) Urine Urobilinogen Dipstick 0.2 mg/dL (0.2 mg/dL) Urine Leukocyte Esterase Negative (NEG) Urine RBC 0 /HPF (0-2) Urine WBC Rare /HPF (0-4) Urine Squamous Epithelial Cells Occ /LPF Urine Bacteria 0 /HPF (0-FEW) Urine Hyaline Casts Occasional /HPF Urine Mucus Mod /LPF Troponin I Quantitative 0.143 ng/mL (0.000-0.055) White Blood Count 10.3 x10^3/uL (4.0-11.0) Red Blood Count 5.04 x10^6/uL (4.30-5.70) Hemoglobin 14.6 g/dL (13.0-17.5) Hematocrit 44.0 % (39.0-53.0) Mean Corpuscular Volume 87 fL (79-100) Mean Corpuscular Hemoglobin 29 pg (25-35) Mean Corpuscular Hemoglobin Concent 33 g/dL (31-37) Red Cell Distribution Width 14.9 % (11.5-14.5) Platelet Count 192 x10^3/uL (140-400) Neutrophils (%) (Auto) 88 % (31-73) Lymphocytes (%) (Auto) 6 % (24-48) Monocytes (%) (Auto) 6 % (0-9) Eosinophils (%) (Auto) 0 % (0-3) Basophils (%) (Auto) 0 % (0-3) Neutrophils # (Auto) 9.1 x10^3/uL (1.8-7.7) Lymphocytes # (Auto) 0.6 x10^3/uL (1.0-4.8) Monocytes # (Auto) 0.6 x10^3/uL (0.0-1.1) Eosinophils # (Auto) 0.0 x10^3/uL (0.0-0.7) Basophils # (Auto) 0.0 x10^3/uL (0.0-0.2) Sodium Level 145 mmol/L (136-145) Potassium Level 3.6 mmol/L (3.5-5.1) Chloride Level 108 mmol/L (98-107) Carbon Dioxide Level 26 mmol/L (21-32) Anion Gap 11 (6-14) Blood Urea Nitrogen 27 mg/dL (8-26) Creatinine 1.4 mg/dL (0.7-1.3) Estimated GFR (Cockcroft-Gault) 49.8 Glucose Level 146 mg/dL (70-99) Calcium Level 8.4 mg/dL (8.5-10.1) Magnesium Level 1.8 mg/dL (1.8-2.4) Laboratory Tests Test 05/17/19 14:20 05/17/19 17:00 05/17/19 17:40 05/18/19 05:15 Troponin I Quantitative 0.221 ng/mL (0.000-0.055) 0.143 ng/mL (0.000-0.055) Urine Collection Type Unknown Urine Color Yellow Urine Clarity Clear Urine pH 5.0 (<5.0-8.0) Urine Specific [place] 1.015 (1.000-1.030) Urine Protein Negative mg/dL (NEG-TRACE) Urine Glucose (UA) Negative mg/dL (NEG) Urine Ketones (Stick) Negative mg/dL (NEG) Urine Blood Negative (NEG) Urine Nitrite Negative (NEG) Urine Bilirubin Negative (NEG) Urine Urobilinogen Dipstick 0.2 mg/dL (0.2 mg/dL) Urine Leukocyte Esterase Negative (NEG) Urine RBC 0 /HPF (0-2) Urine WBC Rare /HPF (0-4) Urine Squamous Epithelial Cells Occ /LPF Urine Bacteria 0 /HPF (0-FEW) Urine Hyaline Casts Occasional /HPF Urine Mucus Mod /LPF White Blood Count 10.3 x10^3/uL (4.0-11.0) Red Blood Count 5.04 x10^6/uL (4.30-5.70) Hemoglobin 14.6 g/dL (13.0-17.5) Hematocrit 44.0 % (39.0-53.0) Mean Corpuscular Volume 87 fL (79-100) Mean Corpuscular Hemoglobin 29 pg (25-35) Mean Corpuscular Hemoglobin Concent 33 g/dL (31-37) Red Cell Distribution Width 14.9 % (11.5-14.5) Platelet Count 192 x10^3/uL (140-400) Neutrophils (%) (Auto) 88 % (31-73) Lymphocytes (%) (Auto) 6 % (24-48) Monocytes (%) (Auto) 6 % (0-9) Eosinophils (%) (Auto) 0 % (0-3) Basophils (%) (Auto) 0 % (0-3) Neutrophils # (Auto) 9.1 x10^3/uL (1.8-7.7) Lymphocytes # (Auto) 0.6 x10^3/uL (1.0-4.8) Monocytes # (Auto) 0.6 x10^3/uL (0.0-1.1) Eosinophils # (Auto) 0.0 x10^3/uL (0.0-0.7) Basophils # (Auto) 0.0 x10^3/uL (0.0-0.2) Sodium Level 145 mmol/L (136-145) Potassium Level 3.6 mmol/L (3.5-5.1) Chloride Level 108 mmol/L (98-107) Carbon Dioxide Level 26 mmol/L (21-32) Anion Gap 11 (6-14) Blood Urea Nitrogen 27 mg/dL (8-26) Creatinine 1.4 mg/dL (0.7-1.3) Estimated GFR (Cockcroft-Gault) 49.8 Glucose Level 146 mg/dL (70-99) Calcium Level 8.4 mg/dL (8.5-10.1) Magnesium Level 1.8 mg/dL (1.8-2.4) Microbiology 05/17/19 Blood Culture - Preliminary, Resulted NO GROWTH AFTER 1 DAY Medications Current Medications Albuterol/ Ipratropium (Duoneb) 3 ml 1X ONCE NEB Last administered on 05/17/19at 09:00; Start 05/17/19 at 08:15; Stop 05/17/19 at 08:16; Status DC Methylprednisolone Sodium Succinate (SOLU-Medrol 125MG VIAL) 125 mg 1X ONCE IV Last administered on 05/17/19at 09:49; Start 05/17/19 at 08:15; Stop 05/17/19 at 08:16; Status DC Ceftriaxone Sodium (Rocephin) 1 gm 1X ONCE IVP Last administered on 05/17/19at 09:49; Start 05/17/19 at 08:45; Stop 05/17/19 at 08:46; Status DC Furosemide (Lasix) 20 mg 1X ONCE IVP ; Start 05/17/19 at 08:45; Stop 05/17/19 at 08:53; Status DC Nitroglycerin (Nitro-Bid Oint) 1 inch 1X ONCE TP Last administered on 05/17/19at 09:49; Start 05/17/19 at 08:45; Stop 05/17/19 at 08:46; Status DC Doxycycline Hyclate 100 mg/ Dextrose 100 ml @ 50 mls/hr 1X ONCE IV Last administered on 05/17/19at 09:50; Start 05/17/19 at 09:00; Stop 05/17/19 at 10:59; Status DC Aspirin (Children'S Aspirin) 324 mg 1X ONCE PO Last administered on 05/17/19at 11:11; Start 05/17/19 at 10:45; Stop 05/17/19 at 10:46; Status DC Furosemide (Lasix) 20 mg 1X ONCE IVP Last administered on 05/17/19at 12:25; Start 05/17/19 at 11:15; Stop 05/17/19 at 11:16; Status DC Magnesium Sulfate 50 ml @ 25 mls/hr 1X ONCE IV Last administered on 05/17/19at 16:43; Start 05/17/19 at 14:45; Stop 05/17/19 at 16:44; Status DC Enoxaparin Sodium (Lovenox 30mg Syringe) 30 mg Q24H SQ ; Start 05/17/19 at 14:45; Status UNV Acetaminophen (Tylenol) 650 mg PRN Q6HRS PRN PO MILD PAIN / TEMP; Start 05/17/19 at 14:45 Alprazolam (Xanax) 1 mg BID PO ; Start 05/17/19 at 21:00 Amlodipine Besylate (Norvasc) 5 mg DAILY PO Last administered on 05/18/19at 09:01; Start 05/18/19 at 09:00 Carvedilol (Coreg) 6.25 mg BIDWMEALS PO Last administered on 05/18/19at 09:04; Start 05/17/19 at 17:00 Lisinopril (Prinivil) 40 mg DAILY PO Last administered on 05/18/19at 09:00; Start 05/18/19 at 09:00 Pantoprazole Sodium (Protonix) 40 mg DAILYAC PO Last administered on 05/18/19at 09:01; Start 05/18/19 at 07:30 Oxycodone HCl (Roxicodone) 15 mg PRN BID PRN PO MODERATE PAIN, SEVERE PAIN; Start 05/17/19 at 14:45 Doxycycline Hyclate (Vibra-Tab) 100 mg BID PO Last administered on 05/18/19at 09:00; Start 05/17/19 at 21:00 Ceftriaxone Sodium (Rocephin) 1 gm Q24H IVP Last administered on 05/18/19at 09:04; Start 05/18/19 at 09:00 Furosemide (Lasix) 40 mg DAILY IVP Last administered on 05/18/19at 09:04; Start 05/18/19 at 09:00 Enoxaparin Sodium (Lovenox 40mg Syringe) 40 mg Q24H SQ Last administered on 05/17/19at 16:43; Start 05/17/19 at 16:00; Stop 05/18/19 at 09:52; Status DC Magnesium Sulfate 50 ml @ 25 mls/hr 1X ONCE IV ; Start 05/17/19 at 15:00; Stop 05/17/19 at 16:59; Status UNV Zolpidem Tartrate (Ambien) 5 mg PRN QHS PRN PO INSOMNIA Last administered on 05/17/19at 21:06; Start 05/17/19 at 19:30 Diltiazem HCl (Cardizem Iv Push) 20 mg 1X ONCE IVP Last administered on 05/18/19at 03:51; Start 05/18/19 at 03:30; Stop 05/18/19 at 03:31; Status DC Diltiazem HCl 125 mg/Sodium Chloride 125 ml @ 0 mls/hr CONT PRN IV SEE I/O RECORD Last administered on 05/18/19at 04:23; Start 05/18/19 at 03:30; Stop 05/25/19 at 03:29 Enoxaparin Sodium (Lovenox 40mg Syringe) 40 mg Q24H SQ ; Start 05/18/19 at 17:00 Lactobacillus Rhamnosus (Culturelle) 1 cap BID PO ; Start 05/18/19 at 21:00 Active Scripts Active Reported Dicyclomine Hcl 10 Mg Capsule 1 Cap PO PRN TID PRN Nexium Capsule (Esomeprazole Magnesium) 40 Mg Capsule.dr 40 Mg PO DAILYAC Oxycodone Hcl Immed.release (Oxycodone Hcl) 15 Mg Tablet 15 Mg PO PRN Q12HR PRN Benazepril Hcl 40 Mg Tablet 1 Tab PO DAILY Amlodipine Besylate 10 Mg Tablet 10 Mg PO DAILY Alprazolam 1 Mg Tablet 1 Tab PO BID Hydrocortisone 453.6 Gm Cream..g. 1 Laura TP PRN BID Vitals/I & O Vital Sign - Last 24 Hours 05/17/19 05/17/19 05/17/19 05/17/19 12:57 13:27 13:57 14:47 Temp 98.3 98.3 Pulse 80 77 84 85 Resp 20 B/P (MAP) 116/68 (84) 133/75 (94) 144/65 (91) 127/79 (95) Pulse Ox 97 97 99 100 O2 Delivery Venturi Mask Venturi Mask Venturi Mask Venturi Mask O2 Flow Rate 15.0 05/17/19 05/17/19 05/17/19 05/17/19 15:00 16:45 19:00 20:00 Temp 98.2 98.2 Pulse 84 73 Resp 18 B/P (MAP) 123/66 130/72 (91) Pulse Ox 97 O2 Delivery Venturi Mask Nasal Cannula Nasal Cannula O2 Flow Rate 15.0 2.0 2.0 05/17/19 05/18/19 05/18/19 05/18/19 23:52 02:24 03:43 03:51 Temp 98.0 97.9 98.0 97.9 Pulse 80 79 132 132 Resp 18 20 B/P (MAP) 112/58 (76) 140/73 (95) 103/63 (76) 103/63 Pulse Ox 95 96 O2 Delivery Nasal Cannula Nasal Cannula O2 Flow Rate 2.0 2.0 05/18/19 05/18/19 05/18/19 05/18/19 04:00 04:15 04:30 05:30 Pulse 122 123 116 124 B/P (MAP) 86/54 (65) 100/72 (81) 105/68 (80) 108/73 (85) 05/18/19 05/18/19 05/18/19 05/18/19 06:24 06:44 07:04 07:10 Temp 97.9 97.9 Pulse 114 108 120 99 Resp 20 B/P (MAP) 110/81 (91) 126/96 (106) 139/88 (105) 115/90 (98) Pulse Ox 96 O2 Delivery Nasal Cannula O2 Flow Rate 2.0 05/18/19 05/18/19 05/18/19 05/18/19 08:00 09:00 09:01 09:04 Pulse 120 120 120 B/P (MAP) 134/103 134/103 134/103 O2 Delivery Nasal Cannula O2 Flow Rate 3.0 05/18/19 05/18/19 11:00 11:00 Temp 98.3 97.9 98.3 97.9 Pulse 87 87 Resp 20 B/P (MAP) 119/80 (93) 119/80 (93) Pulse Ox 98 98 O2 Delivery Nasal Cannula Nasal Cannula O2 Flow Rate 3.0 2.0 Intake and Output 05/17/19 05/17/19 05/18/19 15:00 23:00 07:00 Intake Total 100 ml 200 ml 400 ml Output Total 400 ml 400 ml Balance 100 ml -200 ml 0 ml RICK CAROLINA MD May 18, 2019 12:41
[2019-05-18] MEDS: POTASSIUM CHLORIDE 20 MEQ TABLET.ER. PO SCH (13:17)
--- NOTE | 2019-05-18 14:34 | NUR ---
SS following for discharge planning. SS reviewed pt chart and discussed with RN. Pt is from home and is currently requiring oxygen. COVID19 test pending at this time. SS will continue to follow for discharge planning.
--- NOTE | 2019-05-18 15:39 | PDOC ---
DEVIN GLOVER TOOL ANALYST 05/18/19 1539: CARDIO Progress Notes Date and Time Date of Service 05/18/19 Time of Evaluation 1510 Subjective Subjective: Other (feeling better, dry cough ongoing ) Vitals Vitals Vital Signs Date Time Temp Pulse Resp B/P (MAP) Pulse Ox O2 Delivery O2 Flow Rate FiO2 05/18/19 11:00 97.9 87 20 119/80 (93) 98 Nasal Cannula 2.0 97.9 Weight Weight [ ] Input and Output Intake and Output Intake and Output 05/18/19 07:00 Intake Total 700 ml Output Total 800 ml Balance -100 ml Intake Oral 600 ml IV Total 100 ml Output Urine Total 800 ml Laboratory Labs Laboratory Tests Test 05/17/19 17:00 05/17/19 17:40 05/18/19 05:15 Urine Collection Type Unknown Urine Color Yellow Urine Clarity Clear Urine pH 5.0 (<5.0-8.0) Urine Specific [place] 1.015 (1.000-1.030) Urine Protein Negative mg/dL (NEG-TRACE) Urine Glucose (UA) Negative mg/dL (NEG) Urine Ketones (Stick) Negative mg/dL (NEG) Urine Blood Negative (NEG) Urine Nitrite Negative (NEG) Urine Bilirubin Negative (NEG) Urine Urobilinogen Dipstick 0.2 mg/dL (0.2 mg/dL) Urine Leukocyte Esterase Negative (NEG) Urine RBC 0 /HPF (0-2) Urine WBC Rare /HPF (0-4) Urine Squamous Epithelial Cells Occ /LPF Urine Bacteria 0 /HPF (0-FEW) Urine Hyaline Casts Occasional /HPF Urine Mucus Mod /LPF Troponin I Quantitative 0.143 ng/mL (0.000-0.055) White Blood Count 10.3 x10^3/uL (4.0-11.0) Red Blood Count 5.04 x10^6/uL (4.30-5.70) Hemoglobin 14.6 g/dL (13.0-17.5) Hematocrit 44.0 % (39.0-53.0) Mean Corpuscular Volume 87 fL (79-100) Mean Corpuscular Hemoglobin 29 pg (25-35) Mean Corpuscular Hemoglobin Concent 33 g/dL (31-37) Red Cell Distribution Width 14.9 % (11.5-14.5) Platelet Count 192 x10^3/uL (140-400) Neutrophils (%) (Auto) 88 % (31-73) Lymphocytes (%) (Auto) 6 % (24-48) Monocytes (%) (Auto) 6 % (0-9) Eosinophils (%) (Auto) 0 % (0-3) Basophils (%) (Auto) 0 % (0-3) Neutrophils # (Auto) 9.1 x10^3/uL (1.8-7.7) Lymphocytes # (Auto) 0.6 x10^3/uL (1.0-4.8) Monocytes # (Auto) 0.6 x10^3/uL (0.0-1.1) Eosinophils # (Auto) 0.0 x10^3/uL (0.0-0.7) Basophils # (Auto) 0.0 x10^3/uL (0.0-0.2) Sodium Level 145 mmol/L (136-145) Potassium Level 3.6 mmol/L (3.5-5.1) Chloride Level 108 mmol/L (98-107) Carbon Dioxide Level 26 mmol/L (21-32) Anion Gap 11 (6-14) Blood Urea Nitrogen 27 mg/dL (8-26) Creatinine 1.4 mg/dL (0.7-1.3) Estimated GFR (Cockcroft-Gault) 49.8 Glucose Level 146 mg/dL (70-99) Calcium Level 8.4 mg/dL (8.5-10.1) Magnesium Level 1.8 mg/dL (1.8-2.4) Microbiology Micro Microbiology 05/17/19 Blood Culture - Preliminary, Resulted NO GROWTH AFTER 1 DAY Physical Exam HEENT: Neck Supple W Full Motion Chest: Symmetric LUNGS: Other (crackles bilaterally) Heart: irregularly irregular Abdomen: Soft N/T Extremities: No Edema Neurology: alert, oriented, follow commands Assessment Assessment 1. Acute respiratory failure with acute CHF and probable PNA 2. Fevers; FLU neg. COVID-19 PCR pending 3. Acute CHF with possible diastolic dysfunction 4. DONTAE vs CKD; Cr stable with diuresis 5. Hypertension; controlled 6. Mild troponin elevation: peak 0.22. Most probable type II, demand ischemia. CP free. 7. AFIB with RVR; new in the setting of acute illness. Remains in AFIB with controlled rate on Cardizem gtt. Recommendations Lasix therapy Will stop coreg and covert to metoprolol for rate control Titrate off Cardizem gtt Echo today to assess LV systolic function Will continue with ASA therapy for now Consider event monitor to guide therapy Ongoing treatment of PNA VENU YODER MD 05/19/19 0925: CARDIO Progress Notes Plan Plan Late entry for 05/18/2019 Pt. seen and examined. Agree with above CHEMICAL PROCESS ANALYST note. Continue rate control. Will re-evaluate need for anticoagulation in next 24 hours. Suspect afib is due to PNA. DEVIN GLOVER APRN May 18, 2019 15:39 VENU YODER MD May 19, 2019 09:25
[2019-05-18] MEDS: ASPIRIN ENTERIC COATED 81 MG TABLET.DR. PO SCH (17:32)
[2019-05-18] MEDS: ENOXAPARIN 40 MG/0.4 ML SYRINGE. SQ SCH (17:32)
[2019-05-18] MEDS: METOPROLOL TART IMMED RELEASE 50 MG TABLET. PO SCH (17:33)
[2019-05-18] MEDS: LACTOBACILLUS RHAMNOSUS GG 1 CAPSULE. PO SCH (21:07)
[2019-05-19 03:00] VITALS: BP 136/91
[2019-05-19 07:00] VITALS: BP 144/89
[2019-05-19 07:09] LABS: BASO % 1 % (0-3); EOS % 1 % (0-3); HEMATOCRIT 46.1 % (39.0-53.0); LYMPH # 1.5 x10^3/uL (1.0-4.8); LYMPH % 19 % (24-48); MEAN CORPUSCULAR HEMOGLOBIN 29 pg (25-35); MEAN CORPUSCULAR HGB CONC 33 g/dL (31-37); MEAN CORPUSCULAR VOLUME 89 fL (79-100); MONO # 0.8 x10^3/uL (0.0-1.1); MONO % 10 % (0-9); NEUT # 5.5 x10^3/uL (1.8-7.7); NEUT % 70 % (31-73); PLATELET COUNT 193 x10^3/uL (140-400); RED BLOOD COUNT 5.21 x10^6/uL (4.30-5.70); RED CELL DISTRIBUTION WIDTH 15.3 % (11.5-14.5); WHITE BLOOD COUNT 7.8 x10^3/uL (4.0-11.0)
[2019-05-19 07:11] LABS: CALCIUM 8.2 mg/dL (8.5-10.1); CREATININE 1.4 mg/dL (0.7-1.3); GFR 49.8; MAGNESIUM 1.8 mg/dL (1.8-2.4); POTASSIUM 3.4 mmol/L (3.5-5.1)
--- NOTE | 2019-05-19 07:34 | PDOC ---
Infectious Disease Note Subjective: Subjective Pt feels much better less cough, sob no fevers/n/v/d Vital Signs: Vital Signs Vital Signs Date Time Temp Pulse Resp B/P (MAP) Pulse Ox O2 Delivery O2 Flow Rate FiO2 05/19/19 03:00 98.2 94 20 136/91 (106) 97 Nasal Cannula 2.0 98.2 Physical Exam: PHYSICAL EXAM GENERAL: Alert and oriented x 3 male lying in bed comfortably, in no acute distress, no accessory muscle use. HEENT: Normocephalic, atraumatic, anicteric. No thrush. NECK: Supple, no JVD. LUNGS: Decreased breath sounds at the bases with crackles. HEART: S1, S2. ABDOMEN: Soft, nontender, no rebound, no guarding. EXTREMITIES: No edema, no cyanosis. DERMATOLOGIC: Warm, dry. No generalized rash. NEUROLOGIC: Alert and oriented x 3, grossly nonfocal. PSYCHIATRIC: Cooperative, appropriate mood and affect. MUSCULOSKELETAL: Changes suggestive of DJD. Medications: Inpatient Meds: Current Medications Medications (Trade) Dose Ordered Sig/Chance Start Time Stop Time Status Last Admin Dose Admin Acetaminophen (Tylenol) 650 mg PRN Q6HRS PRN 05/17/19 14:45 Albuterol/ Ipratropium (Duoneb) 3 ml 1X ONCE 05/17/19 08:15 05/17/19 08:16 DC 05/17/19 09:00 3 ML Alprazolam (Xanax) 1 mg BID 05/17/19 21:00 05/18/19 21:06 1 MG Amlodipine Besylate (Norvasc) 5 mg DAILY 05/18/19 09:00 05/18/19 12:34 DC 05/18/19 09:01 5 MG Aspirin (Children'S Aspirin) 324 mg 1X ONCE 05/17/19 10:45 05/17/19 10:46 DC 05/17/19 11:11 324 MG Aspirin (Ecotrin) 81 mg DAILYWBKFT 05/18/19 16:00 05/18/19 17:32 81 MG Carvedilol (Coreg) 6.25 mg BIDWMEALS 05/17/19 17:00 05/18/19 15:37 DC 05/18/19 09:04 6.25 MG Ceftriaxone Sodium (Rocephin) 1 gm Q24H 05/18/19 09:00 05/18/19 09:04 1 GM Diltiazem HCl (Cardizem Iv Push) 20 mg 1X ONCE 05/18/19 03:30 05/18/19 03:31 DC 05/18/19 03:51 20 MG Diltiazem HCl 125 mg/Sodium Chloride 125 ml @ 0 mls/hr CONT PRN 05/18/19 03:30 05/25/19 03:29 05/18/19 17:51 5 MLS/HR Doxycycline Hyclate (Vibra-Tab) 100 mg BID 05/17/19 21:00 05/18/19 21:06 100 MG Doxycycline Hyclate 100 mg/ Dextrose 100 ml @ 50 mls/hr 1X ONCE 05/17/19 09:00 05/17/19 10:59 DC 05/17/19 09:50 50 MLS/HR Enoxaparin Sodium (Lovenox 30mg Syringe) 30 mg Q24H 05/17/19 14:45 UNV Enoxaparin Sodium (Lovenox 40mg Syringe) 40 mg Q24H 05/18/19 17:00 05/18/19 17:32 40 MG Furosemide (Lasix) 40 mg DAILY 05/18/19 09:00 05/18/19 09:04 40 MG Lactobacillus Rhamnosus (Culturelle) 1 cap BID 05/18/19 21:00 05/18/19 21:07 1 CAP Lisinopril (Prinivil) 40 mg DAILY 05/18/19 09:00 05/18/19 09:00 40 MG Magnesium Sulfate 50 ml @ 25 mls/hr 1X ONCE 05/18/19 12:30 05/18/19 14:29 DC 05/18/19 13:17 25 MLS/HR Methylprednisolone Sodium Succinate (SOLU-Medrol 125MG VIAL) 125 mg 1X ONCE 05/17/19 08:15 05/17/19 08:16 DC 05/17/19 09:49 125 MG Metoprolol Tartrate (Lopressor) 50 mg BID 05/18/19 16:00 05/18/19 17:33 50 MG Nitroglycerin (Nitro-Bid Oint) 1 inch 1X ONCE 05/17/19 08:45 05/17/19 08:46 DC 05/17/19 09:49 1 INCH Oxycodone HCl (Roxicodone) 15 mg PRN BID PRN 05/17/19 14:45 Pantoprazole Sodium (Protonix) 40 mg DAILYAC 05/18/19 07:30 05/18/19 09:01 40 MG Potassium Chloride (Klor-Con) 40 meq DAILY 05/18/19 13:00 05/18/19 13:17 40 MEQ Zolpidem Tartrate (Ambien) 5 mg PRN QHS PRN 05/17/19 19:30 05/17/19 21:06 5 MG Labs: Lab Laboratory Tests Test 05/19/19 06:32 White Blood Count 7.8 x10^3/uL (4.0-11.0) Red Blood Count 5.21 x10^6/uL (4.30-5.70) Hemoglobin 15.0 g/dL (13.0-17.5) Hematocrit 46.1 % (39.0-53.0) Mean Corpuscular Volume 89 fL (79-100) Mean Corpuscular Hemoglobin 29 pg (25-35) Mean Corpuscular Hemoglobin Concent 33 g/dL (31-37) Red Cell Distribution Width 15.3 % (11.5-14.5) Platelet Count 193 x10^3/uL (140-400) Neutrophils (%) (Auto) 70 % (31-73) Lymphocytes (%) (Auto) 19 % (24-48) Monocytes (%) (Auto) 10 % (0-9) Eosinophils (%) (Auto) 1 % (0-3) Basophils (%) (Auto) 1 % (0-3) Neutrophils # (Auto) 5.5 x10^3/uL (1.8-7.7) Lymphocytes # (Auto) 1.5 x10^3/uL (1.0-4.8) Monocytes # (Auto) 0.8 x10^3/uL (0.0-1.1) Eosinophils # (Auto) 0.0 x10^3/uL (0.0-0.7) Basophils # (Auto) 0.0 x10^3/uL (0.0-0.2) Sodium Level 144 mmol/L (136-145) Potassium Level 3.4 mmol/L (3.5-5.1) Chloride Level 107 mmol/L (98-107) Carbon Dioxide Level 28 mmol/L (21-32) Anion Gap 9 (6-14) Blood Urea Nitrogen 34 mg/dL (8-26) Creatinine 1.4 mg/dL (0.7-1.3) Estimated GFR (Cockcroft-Gault) 49.8 Glucose Level 100 mg/dL (70-99) Calcium Level 8.2 mg/dL (8.5-10.1) Magnesium Level 1.8 mg/dL (1.8-2.4) Objective: Assessment: Fever Leucocytosis Acute hypoxic resp failure Acute CHF Pneumonia chronic pain insomnia [place] A fib Plan: Plan of Care cont ceftriaxone and doxycycline f/u COVID 19 results F/U cults and labs Maintain isolation d/w MARGRET MANZO MD May 19, 2019 07:34
[2019-05-19] MEDS: LACTOBACILLUS RHAMNOSUS GG 1 CAPSULE. PO SCH ×2 (09:00→21:08)
[2019-05-19] MEDS: DOXYCYCLINE HYCLATE 100 MG TABLET PO SCH ×2 (09:00→21:08)
[2019-05-19] MEDS: FUROSEMIDE 40 MG/4 ML VIAL. IVP SCH (09:00)
[2019-05-19] MEDS: ASPIRIN ENTERIC COATED 81 MG TABLET.DR. PO SCH (09:00)
[2019-05-19] MEDS: POTASSIUM CHLORIDE 20 MEQ TABLET.ER. PO SCH (09:00)
[2019-05-19] MEDS: ALPRAZolam 1 MG TABLET PO SCH ×2 (09:01→21:08)
[2019-05-19] MEDS: METOPROLOL TART IMMED RELEASE 50 MG TABLET. PO SCH ×2 (09:01→21:08)
[2019-05-19] MEDS: LISINOPRIL 20 MG TABLET PO SCH (09:01)
[2019-05-19] MEDS: ENOXAPARIN 40 MG/0.4 ML SYRINGE. SQ SCH (09:03)
[2019-05-19] MEDS: cefTRIAXone IV Push 1 GM VIAL. IVP SCH (09:12)
[2019-05-19] MEDS: PANTOPRAZOLE 40 MG TABLET.DR. PO SCH (09:41)
--- NOTE | 2019-05-19 10:29 | PDOC ---
PROGRESS NOTES Subjective Subjective feels better. not short of breath. still on iv diltiazem drip and iv antibiotics and received iv lasix today. potassium low 3.4. no coughing Objective Objective Vital Signs Date Time Temp Pulse Resp B/P (MAP) Pulse Ox O2 Delivery O2 Flow Rate FiO2 05/19/19 09:01 94 136/91 05/19/19 07:00 98.2 20 93 Nasal Cannula 2.0 98.2 Intake and Output 05/19/19 07:00 Intake Total 1495 ml Output Total 1850 ml Balance -355 ml Intake Oral 1340 ml IV Total 155 ml Output Urine Total 1850 ml Physical Exam Abdomen: Soft Heart: Normal S1, Normal S2 Extremities: No edema General: Alert HEENT: Atraumatic Lungs: Other (clear with decreased breath sounds) Neuro: Normal speech Psych/Mental Status: Mental status NL Skin: No rashes Assessment Assessment Problems. Acute hypoxic and hypercarbic respiratory failure. 2. acute congestive heart failure, compensated clinically. unclear if it is systolic or diastolic. echo pending 3. Left lower lobe pneumonia 4. acute kidney disease vs chronic kidney disease stage 3. suspect latter. 5. Hypomagnesemia. treated 6. Chest pain. troponin increased 7. Hypertension. 8. Gastroesophageal reflux disease. 9. Chronic pain. new onset a fib with RVR and VR controlled with iv diltiazem and metoprolol Medical Problems: (1) Elevated brain natriuretic peptide (BNP) level Status: Acute (2) Pneumonia Status: Acute Plan Plan of Care continue iv antibiotics continue iv diltiazem cardiology to decide on anticoagulation attempt to wean oxygen replete kcl d/c iv lasix cxr today covid 19 results pending Comment Review of Relevant I have reviewed the following items juan (where applicable) has been applied. Labs Laboratory Tests Test 05/17/19 14:20 05/17/19 17:00 05/17/19 17:40 05/18/19 05:15 Troponin I Quantitative 0.221 ng/mL (0.000-0.055) 0.143 ng/mL (0.000-0.055) Urine Collection Type Unknown Urine Color Yellow Urine Clarity Clear Urine pH 5.0 (<5.0-8.0) Urine Specific [place] 1.015 (1.000-1.030) Urine Protein Negative mg/dL (NEG-TRACE) Urine Glucose (UA) Negative mg/dL (NEG) Urine Ketones (Stick) Negative mg/dL (NEG) Urine Blood Negative (NEG) Urine Nitrite Negative (NEG) Urine Bilirubin Negative (NEG) Urine Urobilinogen Dipstick 0.2 mg/dL (0.2 mg/dL) Urine Leukocyte Esterase Negative (NEG) Urine RBC 0 /HPF (0-2) Urine WBC Rare /HPF (0-4) Urine Squamous Epithelial Cells Occ /LPF Urine Bacteria 0 /HPF (0-FEW) Urine Hyaline Casts Occasional /HPF Urine Mucus Mod /LPF White Blood Count 10.3 x10^3/uL (4.0-11.0) Red Blood Count 5.04 x10^6/uL (4.30-5.70) Hemoglobin 14.6 g/dL (13.0-17.5) Hematocrit 44.0 % (39.0-53.0) Mean Corpuscular Volume 87 fL (79-100) Mean Corpuscular Hemoglobin 29 pg (25-35) Mean Corpuscular Hemoglobin Concent 33 g/dL (31-37) Red Cell Distribution Width 14.9 % (11.5-14.5) Platelet Count 192 x10^3/uL (140-400) Neutrophils (%) (Auto) 88 % (31-73) Lymphocytes (%) (Auto) 6 % (24-48) Monocytes (%) (Auto) 6 % (0-9) Eosinophils (%) (Auto) 0 % (0-3) Basophils (%) (Auto) 0 % (0-3) Neutrophils # (Auto) 9.1 x10^3/uL (1.8-7.7) Lymphocytes # (Auto) 0.6 x10^3/uL (1.0-4.8) Monocytes # (Auto) 0.6 x10^3/uL (0.0-1.1) Eosinophils # (Auto) 0.0 x10^3/uL (0.0-0.7) Basophils # (Auto) 0.0 x10^3/uL (0.0-0.2) Sodium Level 145 mmol/L (136-145) Potassium Level 3.6 mmol/L (3.5-5.1) Chloride Level 108 mmol/L (98-107) Carbon Dioxide Level 26 mmol/L (21-32) Anion Gap 11 (6-14) Blood Urea Nitrogen 27 mg/dL (8-26) Creatinine 1.4 mg/dL (0.7-1.3) Estimated GFR (Cockcroft-Gault) 49.8 Glucose Level 146 mg/dL (70-99) Calcium Level 8.4 mg/dL (8.5-10.1) Magnesium Level 1.8 mg/dL (1.8-2.4) Test 05/19/19 06:32 White Blood Count 7.8 x10^3/uL (4.0-11.0) Red Blood Count 5.21 x10^6/uL (4.30-5.70) Hemoglobin 15.0 g/dL (13.0-17.5) Hematocrit 46.1 % (39.0-53.0) Mean Corpuscular Volume 89 fL (79-100) Mean Corpuscular Hemoglobin 29 pg (25-35) Mean Corpuscular Hemoglobin Concent 33 g/dL (31-37) Red Cell Distribution Width 15.3 % (11.5-14.5) Platelet Count 193 x10^3/uL (140-400) Neutrophils (%) (Auto) 70 % (31-73) Lymphocytes (%) (Auto) 19 % (24-48) Monocytes (%) (Auto) 10 % (0-9) Eosinophils (%) (Auto) 1 % (0-3) Basophils (%) (Auto) 1 % (0-3) Neutrophils # (Auto) 5.5 x10^3/uL (1.8-7.7) Lymphocytes # (Auto) 1.5 x10^3/uL (1.0-4.8) Monocytes # (Auto) 0.8 x10^3/uL (0.0-1.1) Eosinophils # (Auto) 0.0 x10^3/uL (0.0-0.7) Basophils # (Auto) 0.0 x10^3/uL (0.0-0.2) Sodium Level 144 mmol/L (136-145) Potassium Level 3.4 mmol/L (3.5-5.1) Chloride Level 107 mmol/L (98-107) Carbon Dioxide Level 28 mmol/L (21-32) Anion Gap 9 (6-14) Blood Urea Nitrogen 34 mg/dL (8-26) Creatinine 1.4 mg/dL (0.7-1.3) Estimated GFR (Cockcroft-Gault) 49.8 Glucose Level 100 mg/dL (70-99) Calcium Level 8.2 mg/dL (8.5-10.1) Magnesium Level 1.8 mg/dL (1.8-2.4) Laboratory Tests Test 05/19/19 06:32 White Blood Count 7.8 x10^3/uL (4.0-11.0) Red Blood Count 5.21 x10^6/uL (4.30-5.70) Hemoglobin 15.0 g/dL (13.0-17.5) Hematocrit 46.1 % (39.0-53.0) Mean Corpuscular Volume 89 fL (79-100) Mean Corpuscular Hemoglobin 29 pg (25-35) Mean Corpuscular Hemoglobin Concent 33 g/dL (31-37) Red Cell Distribution Width 15.3 % (11.5-14.5) Platelet Count 193 x10^3/uL (140-400) Neutrophils (%) (Auto) 70 % (31-73) Lymphocytes (%) (Auto) 19 % (24-48) Monocytes (%) (Auto) 10 % (0-9) Eosinophils (%) (Auto) 1 % (0-3) Basophils (%) (Auto) 1 % (0-3) Neutrophils # (Auto) 5.5 x10^3/uL (1.8-7.7) Lymphocytes # (Auto) 1.5 x10^3/uL (1.0-4.8) Monocytes # (Auto) 0.8 x10^3/uL (0.0-1.1) Eosinophils # (Auto) 0.0 x10^3/uL (0.0-0.7) Basophils # (Auto) 0.0 x10^3/uL (0.0-0.2) Sodium Level 144 mmol/L (136-145) Potassium Level 3.4 mmol/L (3.5-5.1) Chloride Level 107 mmol/L (98-107) Carbon Dioxide Level 28 mmol/L (21-32) Anion Gap 9 (6-14) Blood Urea Nitrogen 34 mg/dL (8-26) Creatinine 1.4 mg/dL (0.7-1.3) Estimated GFR (Cockcroft-Gault) 49.8 Glucose Level 100 mg/dL (70-99) Calcium Level 8.2 mg/dL (8.5-10.1) Magnesium Level 1.8 mg/dL (1.8-2.4) Microbiology 05/17/19 Blood Culture - Preliminary, Resulted NO GROWTH AFTER 2 DAYS Medications Current Medications Albuterol/ Ipratropium (Duoneb) 3 ml 1X ONCE NEB Last administered on 05/17/19at 09:00; Start 05/17/19 at 08:15; Stop 05/17/19 at 08:16; Status DC Methylprednisolone Sodium Succinate (SOLU-Medrol 125MG VIAL) 125 mg 1X ONCE IV Last administered on 05/17/19at 09:49; Start 05/17/19 at 08:15; Stop 05/17/19 at 08:16; Status DC Ceftriaxone Sodium (Rocephin) 1 gm 1X ONCE IVP Last administered on 05/17/19at 09:49; Start 05/17/19 at 08:45; Stop 05/17/19 at 08:46; Status DC Furosemide (Lasix) 20 mg 1X ONCE IVP ; Start 05/17/19 at 08:45; Stop 05/17/19 at 08:53; Status DC Nitroglycerin (Nitro-Bid Oint) 1 inch 1X ONCE TP Last administered on 05/17/19at 09:49; Start 05/17/19 at 08:45; Stop 05/17/19 at 08:46; Status DC Doxycycline Hyclate 100 mg/ Dextrose 100 ml @ 50 mls/hr 1X ONCE IV Last administered on 05/17/19at 09:50; Start 05/17/19 at 09:00; Stop 05/17/19 at 10:59; Status DC Aspirin (Children'S Aspirin) 324 mg 1X ONCE PO Last administered on 05/17/19at 11:11; Start 05/17/19 at 10:45; Stop 05/17/19 at 10:46; Status DC Furosemide (Lasix) 20 mg 1X ONCE IVP Last administered on 05/17/19at 12:25; Start 05/17/19 at 11:15; Stop 05/17/19 at 11:16; Status DC Magnesium Sulfate 50 ml @ 25 mls/hr 1X ONCE IV Last administered on 05/17/19at 16:43; Start 05/17/19 at 14:45; Stop 05/17/19 at 16:44; Status DC Enoxaparin Sodium (Lovenox 30mg Syringe) 30 mg Q24H SQ ; Start 05/17/19 at 14:45; Status UNV Acetaminophen (Tylenol) 650 mg PRN Q6HRS PRN PO MILD PAIN / TEMP; Start 05/17/19 at 14:45 Alprazolam (Xanax) 1 mg BID PO Last administered on 05/19/19at 09:01; Start 05/17/19 at 21:00 Amlodipine Besylate (Norvasc) 5 mg DAILY PO Last administered on 05/18/19at 09:01; Start 05/18/19 at 09:00; Stop 05/18/19 at 12:34; Status DC Carvedilol (Coreg) 6.25 mg BIDWMEALS PO Last administered on 05/18/19at 09:04; Start 05/17/19 at 17:00; Stop 05/18/19 at 15:37; Status DC Lisinopril (Prinivil) 40 mg DAILY PO Last administered on 05/19/19at 09:01; Start 05/18/19 at 09:00 Pantoprazole Sodium (Protonix) 40 mg DAILYAC PO Last administered on 05/19/19at 09:41; Start 05/18/19 at 07:30 Oxycodone HCl (Roxicodone) 15 mg PRN BID PRN PO MODERATE PAIN, SEVERE PAIN; Start 05/17/19 at 14:45 Doxycycline Hyclate (Vibra-Tab) 100 mg BID PO Last administered on 05/19/19at 09:00; Start 05/17/19 at 21:00 Ceftriaxone Sodium (Rocephin) 1 gm Q24H IVP Last administered on 05/19/19at 09:12; Start 05/18/19 at 09:00 Furosemide (Lasix) 40 mg DAILY IVP Last administered on 05/19/19at 09:00; Start 05/18/19 at 09:00 Enoxaparin Sodium (Lovenox 40mg Syringe) 40 mg Q24H SQ Last administered on 05/17/19at 16:43; Start 05/17/19 at 16:00; Stop 05/18/19 at 09:52; Status DC Magnesium Sulfate 50 ml @ 25 mls/hr 1X ONCE IV ; Start 05/17/19 at 15:00; Stop 05/17/19 at 16:59; Status UNV Zolpidem Tartrate (Ambien) 5 mg PRN QHS PRN PO INSOMNIA Last administered on 05/17/19at 21:06; Start 05/17/19 at 19:30 Diltiazem HCl (Cardizem Iv Push) 20 mg 1X ONCE IVP Last administered on at 03:51; Start 05/18/19 at 03:30; Stop 05/18/19 at 03:31; Status DC Diltiazem HCl 125 mg/Sodium Chloride 125 ml @ 0 mls/hr CONT PRN IV SEE I/O RECORD Last administered on 05/18/19at 17:51; Start 05/18/19 at 03:30; Stop 05/25/19 at 03:29 Enoxaparin Sodium (Lovenox 40mg Syringe) 40 mg Q24H SQ Last administered on 05/19/19at 09:03; Start 05/18/19 at 17:00 Lactobacillus Rhamnosus (Culturelle) 1 cap BID PO Last administered on 05/19/19at 09:00; Start 05/18/19 at 21:00 Potassium Chloride (Klor-Con) 40 meq DAILY PO Last administered on 05/19/19at 09:00; Start 05/18/19 at 13:00 Magnesium Sulfate 50 ml @ 25 mls/hr 1X ONCE IV Last administered on 05/18/19at 13:17; Start 05/18/19 at 12:30; Stop 05/18/19 at 14:29; Status DC Metoprolol Tartrate (Lopressor) 50 mg BID PO Last administered on 05/19/19at 09:01; Start 05/18/19 at 16:00 Aspirin (Ecotrin) 81 mg DAILYWBKFT PO Last administered on 05/19/19at 09:00; Start 05/18/19 at 16:00 Active Scripts Active Reported Dicyclomine Hcl 10 Mg Capsule 1 Cap PO PRN TID PRN Nexium Capsule (Esomeprazole Magnesium) 40 Mg Capsule.dr 40 Mg PO DAILYAC Oxycodone Hcl Immed.release (Oxycodone Hcl) 15 Mg Tablet 15 Mg PO PRN Q12HR PRN Benazepril Hcl 40 Mg Tablet 1 Tab PO DAILY Amlodipine Besylate 10 Mg Tablet 10 Mg PO DAILY Alprazolam 1 Mg Tablet 1 Tab PO BID Hydrocortisone 453.6 Gm Cream..g. 1 Laura TP PRN BID Vitals/I & O Vital Sign - Last 24 Hours 05/18/19 05/18/19 05/18/19 05/18/19 10:40 11:00 11:00 13:38 Temp 98.3 97.9 98.3 97.9 Pulse 79 87 87 62 Resp 20 B/P (MAP) 125/67 (86) 119/80 (93) 119/80 (93) 133/100 (111) Pulse Ox 98 98 97 O2 Delivery Nasal Cannula Nasal Cannula Nasal Cannula O2 Flow Rate 3.0 2.0 2.0 05/18/19 05/18/19 05/18/19 05/18/19 13:42 14:42 15:00 15:42 Temp 98.4 98.4 Pulse 77 86 102 68 Resp 18 B/P (MAP) 112/71 (85) 96/71 (79) 138/86 (103) 112/75 (87) Pulse Ox 97 97 98 97 O2 Delivery Nasal Cannula Nasal Cannula Nasal Cannula Nasal Cannula O2 Flow Rate 2.0 2.0 2.0 2.0 05/18/19 05/18/19 05/18/19 05/18/19 17:33 17:42 18:42 20:00 Pulse 117 130 84 B/P (MAP) 138/86 159/108 (125) 164/64 (97) Pulse Ox 97 97 O2 Delivery Nasal Cannula Nasal Cannula Nasal Cannula O2 Flow Rate 2.0 2.0 2.0 05/18/19 05/19/19 05/19/19 05/19/19 22:39 03:00 07:00 09:01 Temp 98.4 98.2 98.2 98.4 98.2 98.2 Pulse 85 94 98 94 Resp 24 20 20 B/P (MAP) 135/82 (99) 136/91 (106) 144/89 (107) 148/91 Pulse Ox 96 97 93 O2 Delivery Nasal Cannula Nasal Cannula Nasal Cannula O2 Flow Rate 2.0 2.0 05/19/19 09:01 Pulse 94 B/P (MAP) 136/91 Intake and Output 05/18/19 05/18/19 05/19/19 15:00 23:00 07:00 Intake Total 240 ml 1100 ml 155 ml Output Total 450 ml 700 ml 700 ml Balance -210 ml 400 ml -545 ml RICK CAROLINA MD May 19, 2019 10:29
--- NOTE | 2019-05-19 11:08 | RAD ---
Single AP view of the chest. Comparison: 05/17/2019. Indication: Follow-up pneumonia Findings: The heart is enlarged but stable. There is no pneumothorax or effusion. Previously visualized airspace disease in the left midlung has resolved. Impression: 1. Interval resolution the previously visualized left midlung opacity. Electronically signed by: Tera Thao MD (05/19/2019 11:05 AM) [id number]
[2019-05-19 11:16] VITALS: BP 132/100
--- NOTE | 2019-05-19 11:28 | PDOC ---
CARDIOLOGY PROGRESS NOTE SUBJECTIVE: No acute events overnight. Denies any chest pain. Breathing better. OBJECTIVE: Vital Signs/I&O: Vital Signs Date Time Temp Pulse Resp B/P (MAP) Pulse Ox O2 Delivery O2 Flow Rate FiO2 05/19/19 09:01 94 136/91 05/19/19 08:00 Nasal Cannula 2.0 05/19/19 07:00 98.2 20 93 98.2 I & O 05/18/19 05/18/19 05/19/19 15:00 23:00 07:00 Intake Total 240 ml 1100 ml 155 ml Output Total 450 ml 700 ml 700 ml Balance -210 ml 400 ml -545 ml Objective: a/o x 3. NAD No edema. Soft abdomen CURRENT MEDICATIONS: metoprlol 50mg bid. Lisinoril 40mg daily Dilt gtt DIAGNOSTIC TESTING: labs reviewed. CXR improving ASSESSMENT: 1. New onset afib in the setting of PNA 2. HTN 3. Probable mild diastolic HF PLAN: 1. Start coumadin 2. Will change to oral diltiazem. Stop gtt. Continue other meds. Await COVID testing. Will plan for echo after covid testing info available. Thanks VENU YODER MD May 19, 2019 11:28
--- NOTE | 2019-05-19 13:37 | PDOC ---
PULMONARY PROGRESS NOTES Subjective not more soa a fib is better controlled no increase cogu Vitals Vital Signs Date Time Temp Pulse Resp B/P (MAP) Pulse Ox O2 Delivery O2 Flow Rate FiO2 05/19/19 11:16 97.8 85 20 132/100 (111) Nasal Cannula 2.0 97.8 05/19/19 07:00 93 ROS: No Nausea, No Chest Pain, No Abdominal Pain, No Increase Cough Lungs: Crackles Cardiovascular: S1, S2 Abdomen: Soft Extremities: Other (EDEMA) Skin: Warm Labs Laboratory Tests Test 05/17/19 14:20 05/17/19 17:00 05/17/19 17:40 05/18/19 05:15 Troponin I Quantitative 0.221 ng/mL (0.000-0.055) 0.143 ng/mL (0.000-0.055) Urine Collection Type Unknown Urine Color Yellow Urine Clarity Clear Urine pH 5.0 (<5.0-8.0) Urine Specific [place] 1.015 (1.000-1.030) Urine Protein Negative mg/dL (NEG-TRACE) Urine Glucose (UA) Negative mg/dL (NEG) Urine Ketones (Stick) Negative mg/dL (NEG) Urine Blood Negative (NEG) Urine Nitrite Negative (NEG) Urine Bilirubin Negative (NEG) Urine Urobilinogen Dipstick 0.2 mg/dL (0.2 mg/dL) Urine Leukocyte Esterase Negative (NEG) Urine RBC 0 /HPF (0-2) Urine WBC Rare /HPF (0-4) Urine Squamous Epithelial Cells Occ /LPF Urine Bacteria 0 /HPF (0-FEW) Urine Hyaline Casts Occasional /HPF Urine Mucus Mod /LPF White Blood Count 10.3 x10^3/uL (4.0-11.0) Red Blood Count 5.04 x10^6/uL (4.30-5.70) Hemoglobin 14.6 g/dL (13.0-17.5) Hematocrit 44.0 % (39.0-53.0) Mean Corpuscular Volume 87 fL (79-100) Mean Corpuscular Hemoglobin 29 pg (25-35) Mean Corpuscular Hemoglobin Concent 33 g/dL (31-37) Red Cell Distribution Width 14.9 % (11.5-14.5) Platelet Count 192 x10^3/uL (140-400) Neutrophils (%) (Auto) 88 % (31-73) Lymphocytes (%) (Auto) 6 % (24-48) Monocytes (%) (Auto) 6 % (0-9) Eosinophils (%) (Auto) 0 % (0-3) Basophils (%) (Auto) 0 % (0-3) Neutrophils # (Auto) 9.1 x10^3/uL (1.8-7.7) Lymphocytes # (Auto) 0.6 x10^3/uL (1.0-4.8) Monocytes # (Auto) 0.6 x10^3/uL (0.0-1.1) Eosinophils # (Auto) 0.0 x10^3/uL (0.0-0.7) Basophils # (Auto) 0.0 x10^3/uL (0.0-0.2) Sodium Level 145 mmol/L (136-145) Potassium Level 3.6 mmol/L (3.5-5.1) Chloride Level 108 mmol/L (98-107) Carbon Dioxide Level 26 mmol/L (21-32) Anion Gap 11 (6-14) Blood Urea Nitrogen 27 mg/dL (8-26) Creatinine 1.4 mg/dL (0.7-1.3) Estimated GFR (Cockcroft-Gault) 49.8 Glucose Level 146 mg/dL (70-99) Calcium Level 8.4 mg/dL (8.5-10.1) Magnesium Level 1.8 mg/dL (1.8-2.4) Test 05/19/19 06:32 White Blood Count 7.8 x10^3/uL (4.0-11.0) Red Blood Count 5.21 x10^6/uL (4.30-5.70) Hemoglobin 15.0 g/dL (13.0-17.5) Hematocrit 46.1 % (39.0-53.0) Mean Corpuscular Volume 89 fL (79-100) Mean Corpuscular Hemoglobin 29 pg (25-35) Mean Corpuscular Hemoglobin Concent 33 g/dL (31-37) Red Cell Distribution Width 15.3 % (11.5-14.5) Platelet Count 193 x10^3/uL (140-400) Neutrophils (%) (Auto) 70 % (31-73) Lymphocytes (%) (Auto) 19 % (24-48) Monocytes (%) (Auto) 10 % (0-9) Eosinophils (%) (Auto) 1 % (0-3) Basophils (%) (Auto) 1 % (0-3) Neutrophils # (Auto) 5.5 x10^3/uL (1.8-7.7) Lymphocytes # (Auto) 1.5 x10^3/uL (1.0-4.8) Monocytes # (Auto) 0.8 x10^3/uL (0.0-1.1) Eosinophils # (Auto) 0.0 x10^3/uL (0.0-0.7) Basophils # (Auto) 0.0 x10^3/uL (0.0-0.2) Sodium Level 144 mmol/L (136-145) Potassium Level 3.4 mmol/L (3.5-5.1) Chloride Level 107 mmol/L (98-107) Carbon Dioxide Level 28 mmol/L (21-32) Anion Gap 9 (6-14) Blood Urea Nitrogen 34 mg/dL (8-26) Creatinine 1.4 mg/dL (0.7-1.3) Estimated GFR (Cockcroft-Gault) 49.8 Glucose Level 100 mg/dL (70-99) Calcium Level 8.2 mg/dL (8.5-10.1) Magnesium Level 1.8 mg/dL (1.8-2.4) Laboratory Tests Test 05/19/19 06:32 White Blood Count 7.8 x10^3/uL (4.0-11.0) Red Blood Count 5.21 x10^6/uL (4.30-5.70) Hemoglobin 15.0 g/dL (13.0-17.5) Hematocrit 46.1 % (39.0-53.0) Mean Corpuscular Volume 89 fL (79-100) Mean Corpuscular Hemoglobin 29 pg (25-35) Mean Corpuscular Hemoglobin Concent 33 g/dL (31-37) Red Cell Distribution Width 15.3 % (11.5-14.5) Platelet Count 193 x10^3/uL (140-400) Neutrophils (%) (Auto) 70 % (31-73) Lymphocytes (%) (Auto) 19 % (24-48) Monocytes (%) (Auto) 10 % (0-9) Eosinophils (%) (Auto) 1 % (0-3) Basophils (%) (Auto) 1 % (0-3) Neutrophils # (Auto) 5.5 x10^3/uL (1.8-7.7) Lymphocytes # (Auto) 1.5 x10^3/uL (1.0-4.8) Monocytes # (Auto) 0.8 x10^3/uL (0.0-1.1) Eosinophils # (Auto) 0.0 x10^3/uL (0.0-0.7) Basophils # (Auto) 0.0 x10^3/uL (0.0-0.2) Sodium Level 144 mmol/L (136-145) Potassium Level 3.4 mmol/L (3.5-5.1) Chloride Level 107 mmol/L (98-107) Carbon Dioxide Level 28 mmol/L (21-32) Anion Gap 9 (6-14) Blood Urea Nitrogen 34 mg/dL (8-26) Creatinine 1.4 mg/dL (0.7-1.3) Estimated GFR (Cockcroft-Gault) 49.8 Glucose Level 100 mg/dL (70-99) Calcium Level 8.2 mg/dL (8.5-10.1) Magnesium Level 1.8 mg/dL (1.8-2.4) Medications Active Scripts Medications Dose Route/Sig Max Daily Dose Days Date Category Dicyclomine Hcl 10 Mg Capsule 1 Cap PO PRN TID PRN 05/17/19 Reported Nexium Capsule (Esomeprazole Magnesium) 40 Mg Capsule.dr 40 Mg PO DAILYAC 05/17/19 Reported Oxycodone Hcl Immed.release (Oxycodone Hcl) 15 Mg Tablet 15 Mg PO PRN Q12HR PRN 05/17/19 Reported Benazepril Hcl 40 Mg Tablet 1 Tab PO DAILY 02/05/17 Reported Amlodipine Besylate 10 Mg Tablet 10 Mg PO DAILY 02/05/17 Reported Alprazolam 1 Mg Tablet 1 Tab PO BID 02/05/17 Reported Hydrocortisone 453.6 Gm Cream..g. 1 Laura TP PRN BID 02/05/17 Reported Impression . IMPRESSION: 1. Acute hypoxemic respiratory failure, multifactorial secondary to acute congestive heart failure. 2. Possible pneumonia, gram negative/gram positive. 3. Mild acute exacerbation of chronic obstructive pulmonary disease. 4. Morbid obesity. 5. Fever workup in process. [id number] testing pending. 2. Acute kidney injury. 3. Accelerated hypertension. 4. Mild elevation in troponin. 9. AFIB WITH RVR Impression: 1. Interval resolution the previously visualized left midlung opacity. Plan . now on oral cardizem cxr is better this is mostly heart failure anticxipate dc on weekend pt does not need sars-covd2 result to be dc will dc JUAN J Quarles MD May 19, 2019 13:37
[2019-05-19 15:00] VITALS: BP 119/79
[2019-05-19 19:00] VITALS: BP 115/76
[2019-05-19 23:30] VITALS: BP 102/69
[2019-05-20 03:21] VITALS: BP 144/78
[2019-05-20 05:36] LABS: CREATININE 1.3 mg/dL (0.7-1.3); GFR 54.3; POTASSIUM 3.7 mmol/L (3.5-5.1)
--- NOTE | 2019-05-20 06:02 | PDOC ---
PULMONARY PROGRESS NOTES Subjective on 02, sob better, no cough, no cp, off cardizem gtt Vitals Vital Signs Date Time Temp Pulse Resp B/P (MAP) Pulse Ox O2 Delivery O2 Flow Rate FiO2 05/20/19 03:21 97.6 109 18 144/78 (100) 94 Nasal Cannula 2.0 97.6 ROS: No Nausea, No Chest Pain, No Abdominal Pain, No Increase Cough HEENT: Other (nc at perrl ) Lungs: Crackles Cardiovascular: Other (irreg irreg) Abdomen: Soft, Non-tender Neuro Exam: Alert, Oriented Extremities: Other (EDEMA) Skin: Warm Labs Laboratory Tests Test 05/19/19 06:32 05/20/19 05:00 White Blood Count 7.8 x10^3/uL (4.0-11.0) Red Blood Count 5.21 x10^6/uL (4.30-5.70) Hemoglobin 15.0 g/dL (13.0-17.5) Hematocrit 46.1 % (39.0-53.0) Mean Corpuscular Volume 89 fL (79-100) Mean Corpuscular Hemoglobin 29 pg (25-35) Mean Corpuscular Hemoglobin Concent 33 g/dL (31-37) Red Cell Distribution Width 15.3 % (11.5-14.5) Platelet Count 193 x10^3/uL (140-400) Neutrophils (%) (Auto) 70 % (31-73) Lymphocytes (%) (Auto) 19 % (24-48) Monocytes (%) (Auto) 10 % (0-9) Eosinophils (%) (Auto) 1 % (0-3) Basophils (%) (Auto) 1 % (0-3) Neutrophils # (Auto) 5.5 x10^3/uL (1.8-7.7) Lymphocytes # (Auto) 1.5 x10^3/uL (1.0-4.8) Monocytes # (Auto) 0.8 x10^3/uL (0.0-1.1) Eosinophils # (Auto) 0.0 x10^3/uL (0.0-0.7) Basophils # (Auto) 0.0 x10^3/uL (0.0-0.2) Sodium Level 144 mmol/L (136-145) 149 mmol/L (136-145) Potassium Level 3.4 mmol/L (3.5-5.1) 3.7 mmol/L (3.5-5.1) Chloride Level 107 mmol/L (98-107) 110 mmol/L (98-107) Carbon Dioxide Level 28 mmol/L (21-32) 29 mmol/L (21-32) Anion Gap 9 (6-14) 10 (6-14) Blood Urea Nitrogen 34 mg/dL (8-26) 29 mg/dL (8-26) Creatinine 1.4 mg/dL (0.7-1.3) 1.3 mg/dL (0.7-1.3) Estimated GFR (Cockcroft-Gault) 49.8 54.3 Glucose Level 100 mg/dL (70-99) 97 mg/dL (70-99) Calcium Level 8.2 mg/dL (8.5-10.1) 8.0 mg/dL (8.5-10.1) Magnesium Level 1.8 mg/dL (1.8-2.4) Laboratory Tests Test 05/19/19 06:32 05/20/19 05:00 White Blood Count 7.8 x10^3/uL (4.0-11.0) Red Blood Count 5.21 x10^6/uL (4.30-5.70) Hemoglobin 15.0 g/dL (13.0-17.5) Hematocrit 46.1 % (39.0-53.0) Mean Corpuscular Volume 89 fL (79-100) Mean Corpuscular Hemoglobin 29 pg (25-35) Mean Corpuscular Hemoglobin Concent 33 g/dL (31-37) Red Cell Distribution Width 15.3 % (11.5-14.5) Platelet Count 193 x10^3/uL (140-400) Neutrophils (%) (Auto) 70 % (31-73) Lymphocytes (%) (Auto) 19 % (24-48) Monocytes (%) (Auto) 10 % (0-9) Eosinophils (%) (Auto) 1 % (0-3) Basophils (%) (Auto) 1 % (0-3) Neutrophils # (Auto) 5.5 x10^3/uL (1.8-7.7) Lymphocytes # (Auto) 1.5 x10^3/uL (1.0-4.8) Monocytes # (Auto) 0.8 x10^3/uL (0.0-1.1) Eosinophils # (Auto) 0.0 x10^3/uL (0.0-0.7) Basophils # (Auto) 0.0 x10^3/uL (0.0-0.2) Sodium Level 144 mmol/L (136-145) 149 mmol/L (136-145) Potassium Level 3.4 mmol/L (3.5-5.1) 3.7 mmol/L (3.5-5.1) Chloride Level 107 mmol/L (98-107) 110 mmol/L (98-107) Carbon Dioxide Level 28 mmol/L (21-32) 29 mmol/L (21-32) Anion Gap 9 (6-14) 10 (6-14) Blood Urea Nitrogen 34 mg/dL (8-26) 29 mg/dL (8-26) Creatinine 1.4 mg/dL (0.7-1.3) 1.3 mg/dL (0.7-1.3) Estimated GFR (Cockcroft-Gault) 49.8 54.3 Glucose Level 100 mg/dL (70-99) 97 mg/dL (70-99) Calcium Level 8.2 mg/dL (8.5-10.1) 8.0 mg/dL (8.5-10.1) Magnesium Level 1.8 mg/dL (1.8-2.4) Medications Active Scripts Medications Dose Route/Sig Max Daily Dose Days Date Category Dicyclomine Hcl 10 Mg Capsule 1 Cap PO PRN TID PRN 05/17/19 Reported Nexium Capsule (Esomeprazole Magnesium) 40 Mg Capsule.dr 40 Mg PO DAILYAC 05/17/19 Reported Oxycodone Hcl Immed.release (Oxycodone Hcl) 15 Mg Tablet 15 Mg PO PRN Q12HR PRN 05/17/19 Reported Benazepril Hcl 40 Mg Tablet 1 Tab PO DAILY 02/05/17 Reported Amlodipine Besylate 10 Mg Tablet 10 Mg PO DAILY 02/05/17 Reported Alprazolam 1 Mg Tablet 1 Tab PO BID 02/05/17 Reported Hydrocortisone 453.6 Gm Cream..g. 1 Laura TP PRN BID 02/05/17 Reported Impression . IMPRESSION: 1. Acute hypoxemic respiratory failure, multifactorial secondary to acute congestive heart failure. 2. Possible pneumonia, gram negative/gram positive. 3. Mild acute exacerbation of chronic obstructive pulmonary disease. 4. Morbid obesity. 5. Fever resolved. [id number]-3 testing pending. 2. Acute kidney injury. 3. Accelerated hypertension. 4. Mild elevation in troponin. 9. AFIB WITH RVR, rate controlled Impression: 1. Interval resolution the previously visualized left midlung opacity. Plan . titrate fio2 to keep sat 90% on oral cardizem, and lopressor cxr is better this is mostly heart failure abx per id lovenox protonix for prophylaxis discussed w ANCELMO Lucero MD May 20, 2019 06:02
[2019-05-20 07:00] VITALS: BP_SYST 121; BP_SYST 137; BP_DIAS 78; BP_DIAS 89
[2019-05-20] MEDS: METOPROLOL TART IMMED RELEASE 50 MG TABLET. PO SCH (08:12)
[2019-05-20] MEDS: ASPIRIN ENTERIC COATED 81 MG TABLET.DR. PO SCH (08:12)
[2019-05-20] MEDS: LACTOBACILLUS RHAMNOSUS GG 1 CAPSULE. PO SCH (08:12)
[2019-05-20] MEDS: cefTRIAXone IV Push 1 GM VIAL. IVP SCH (08:13)
[2019-05-20] MEDS: DOXYCYCLINE HYCLATE 100 MG TABLET PO SCH (08:13)
[2019-05-20] MEDS: LISINOPRIL 20 MG TABLET PO SCH (08:13)
[2019-05-20] MEDS: ALPRAZolam 1 MG TABLET PO SCH (08:13)
[2019-05-20] MEDS: PANTOPRAZOLE 40 MG TABLET.DR. PO SCH (08:13)
--- NOTE | 2019-05-20 08:49 | PDOC ---
Infectious Disease Note Subjective Subjective Feeling 99% better Wants to go home Satting 92% on RA No fevers/chills last 24 hours Denies SOA/CP/cough/N/V/D ROS ROS per HPI Vital Sign Vital Signs Vital Signs Date Time Temp Pulse Resp B/P (MAP) Pulse Ox O2 Delivery O2 Flow Rate FiO2 05/20/19 08:13 110 121/89 05/20/19 07:00 97.8 18 93 Room Air 97.8 Physical Exam PHYSICAL EXAM GENERAL: Propped up in bed, alert and eating HEENT: Oropharynx clear, no thrush. NECK: Supple, no JVD. LUNGS: Improved aeration, nonlabored HEART: S1, S2. tachy 110-120s ABDOMEN: Soft, nontender, no rebound, no guarding. EXTREMITIES: No edema, no cyanosis. DERMATOLOGIC: Warm, dry. No generalized rash. NEUROLOGIC: Alert and oriented x 3, grossly nonfocal. PSYCHIATRIC: Cooperative, appropriate mood and affect. MUSCULOSKELETAL: Changes suggestive of DJD. PIV ok Labs Lab Laboratory Tests Test 05/20/19 05:00 Sodium Level 149 mmol/L (136-145) Potassium Level 3.7 mmol/L (3.5-5.1) Chloride Level 110 mmol/L (98-107) Carbon Dioxide Level 29 mmol/L (21-32) Anion Gap 10 (6-14) Blood Urea Nitrogen 29 mg/dL (8-26) Creatinine 1.3 mg/dL (0.7-1.3) Estimated GFR (Cockcroft-Gault) 54.3 Glucose Level 97 mg/dL (70-99) Calcium Level 8.0 mg/dL (8.5-10.1) Micro Microbiology 05/17/19 Blood Culture - Preliminary, Resulted NO GROWTH AFTER 2 DAYS Objective Assessment Fever - better Leucocytosis - better Acute hypoxic resp failure - better Acute CHF Pneumonia Chronic pain Insomnia High rise resident A fib Plan Plan of Care cont ceftriaxone and doxycycline f/u COVID 19 results BC neg to date Maintain isolation d/w RN Feeling well. No F/C.s.N.V.D and no significant SOA Can d/c from ID standpoint on Doxy/Cefdinir for 4 days Needs to self quarantine until provided results D/w RN Attending Co-Sign Attending Co-Sign The patient was seen and interviewed as well as examined at the bedside. The chart was reviewed. The case was discussed. Agree with the plan of care. HELDER GOMEZ APRN May 20, 2019 08:49 SAMARA SALCIDO MD May 20, 2019 12:41
--- NOTE | 2019-05-20 10:49 | PDOC ---
PROGRESS NOTES Subjective Subjective feels better. no cough or shortness of breath, cxr with clear lungs .lab reviewed. Objective Objective Vital Signs Date Time Temp Pulse Resp B/P (MAP) Pulse Ox O2 Delivery O2 Flow Rate FiO2 05/20/19 08:13 110 121/89 05/20/19 08:00 Room Air 2.0 05/20/19 07:00 97.8 18 93 97.8 Intake and Output 05/20/19 07:00 Intake Total 810 ml Output Total 1975 ml Balance -1165 ml Intake Oral 810 ml Output Urine Total 1975 ml # Bowel Movements 1 Physical Exam Abdomen: Soft Heart: Regular rate, Normal S1, Normal S2 Extremities: No edema General: Alert HEENT: Atraumatic Lungs: Clear to auscultation Neuro: Normal speech Psych/Mental Status: Mental status NL Skin: No rashes Assessment Assessment Problems Acute hypoxic and hypercarbic respiratory failure. resolved 2. acute congestive heart failure, compensated clinically. unclear if it is systolic or diastolic. echo pending 3. Left lower lobe pneumonia treated.infiltrate resolved on cxr 4. chronic kidney disease stage 3 5. Hypomagnesemia. treated 6. Chest pain. troponin increased. type 2 demand 7. Hypertension. 8. Gastroesophageal reflux disease. 9. Chronic pain. new onset a fib with RVR and VR controlled with iv diltiazem and metoprolol Medical Problems: (1) Elevated brain natriuretic peptide (BNP) level Status: Acute (2) Pneumonia Status: Acute Plan Plan of Care start coumadin oral antibiotics dismiss today Comment Review of Relevant I have reviewed the following items juan (where applicable) has been applied. Labs Laboratory Tests Test 05/19/19 06:32 05/20/19 05:00 White Blood Count 7.8 x10^3/uL (4.0-11.0) Red Blood Count 5.21 x10^6/uL (4.30-5.70) Hemoglobin 15.0 g/dL (13.0-17.5) Hematocrit 46.1 % (39.0-53.0) Mean Corpuscular Volume 89 fL (79-100) Mean Corpuscular Hemoglobin 29 pg (25-35) Mean Corpuscular Hemoglobin Concent 33 g/dL (31-37) Red Cell Distribution Width 15.3 % (11.5-14.5) Platelet Count 193 x10^3/uL (140-400) Neutrophils (%) (Auto) 70 % (31-73) Lymphocytes (%) (Auto) 19 % (24-48) Monocytes (%) (Auto) 10 % (0-9) Eosinophils (%) (Auto) 1 % (0-3) Basophils (%) (Auto) 1 % (0-3) Neutrophils # (Auto) 5.5 x10^3/uL (1.8-7.7) Lymphocytes # (Auto) 1.5 x10^3/uL (1.0-4.8) Monocytes # (Auto) 0.8 x10^3/uL (0.0-1.1) Eosinophils # (Auto) 0.0 x10^3/uL (0.0-0.7) Basophils # (Auto) 0.0 x10^3/uL (0.0-0.2) Sodium Level 144 mmol/L (136-145) 149 mmol/L (136-145) Potassium Level 3.4 mmol/L (3.5-5.1) 3.7 mmol/L (3.5-5.1) Chloride Level 107 mmol/L (98-107) 110 mmol/L (98-107) Carbon Dioxide Level 28 mmol/L (21-32) 29 mmol/L (21-32) Anion Gap 9 (6-14) 10 (6-14) Blood Urea Nitrogen 34 mg/dL (8-26) 29 mg/dL (8-26) Creatinine 1.4 mg/dL (0.7-1.3) 1.3 mg/dL (0.7-1.3) Estimated GFR (Cockcroft-Gault) 49.8 54.3 Glucose Level 100 mg/dL (70-99) 97 mg/dL (70-99) Calcium Level 8.2 mg/dL (8.5-10.1) 8.0 mg/dL (8.5-10.1) Magnesium Level 1.8 mg/dL (1.8-2.4) Laboratory Tests Test 05/20/19 05:00 Sodium Level 149 mmol/L (136-145) Potassium Level 3.7 mmol/L (3.5-5.1) Chloride Level 110 mmol/L (98-107) Carbon Dioxide Level 29 mmol/L (21-32) Anion Gap 10 (6-14) Blood Urea Nitrogen 29 mg/dL (8-26) Creatinine 1.3 mg/dL (0.7-1.3) Estimated GFR (Cockcroft-Gault) 54.3 Glucose Level 97 mg/dL (70-99) Calcium Level 8.0 mg/dL (8.5-10.1) Microbiology 05/17/19 Blood Culture - Preliminary, Resulted NO GROWTH AFTER 3 DAYS Medications Current Medications Albuterol/ Ipratropium (Duoneb) 3 ml 1X ONCE NEB Last administered on 05/17/19at 09:00; Start 05/17/19 at 08:15; Stop 05/17/19 at 08:16; Status DC Methylprednisolone Sodium Succinate (SOLU-Medrol 125MG VIAL) 125 mg 1X ONCE IV Last administered on 05/17/19at 09:49; Start 05/17/19 at 08:15; Stop 05/17/19 at 08:16; Status DC Ceftriaxone Sodium (Rocephin) 1 gm 1X ONCE IVP Last administered on 05/17/19at 09:49; Start 05/17/19 at 08:45; Stop 05/17/19 at 08:46; Status DC Furosemide (Lasix) 20 mg 1X ONCE IVP ; Start 05/17/19 at 08:45; Stop 05/17/19 at 08:53; Status DC Nitroglycerin (Nitro-Bid Oint) 1 inch 1X ONCE TP Last administered on 05/17/19at 09:49; Start 05/17/19 at 08:45; Stop 05/17/19 at 08:46; Status DC Doxycycline Hyclate 100 mg/ Dextrose 100 ml @ 50 mls/hr 1X ONCE IV Last administered on 05/17/19at 09:50; Start 05/17/19 at 09:00; Stop 05/17/19 at 10:59; Status DC Aspirin (Children'S Aspirin) 324 mg 1X ONCE PO Last administered on 05/17/19at 11:11; Start 05/17/19 at 10:45; Stop 05/17/19 at 10:46; Status DC Furosemide (Lasix) 20 mg 1X ONCE IVP Last administered on 05/17/19at 12:25; Start 05/17/19 at 11:15; Stop 05/17/19 at 11:16; Status DC Magnesium Sulfate 50 ml @ 25 mls/hr 1X ONCE IV Last administered on 05/17/19at 16:43; Start 05/17/19 at 14:45; Stop 05/17/19 at 16:44; Status DC Enoxaparin Sodium (Lovenox 30mg Syringe) 30 mg Q24H SQ ; Start 05/17/19 at 14:45; Status UNV Acetaminophen (Tylenol) 650 mg PRN Q6HRS PRN PO MILD PAIN / TEMP; Start 05/17/19 at 14:45 Alprazolam (Xanax) 1 mg BID PO Last administered on 05/20/19at 08:13; Start 05/17/19 at 21:00 Amlodipine Besylate (Norvasc) 5 mg DAILY PO Last administered on 05/18/19at 09:01; Start 05/18/19 at 09:00; Stop 05/18/19 at 12:34; Status DC Carvedilol (Coreg) 6.25 mg BIDWMEALS PO Last administered on 05/18/19at 09:04; Start 05/17/19 at 17:00; Stop 05/18/19 at 15:37; Status DC Lisinopril (Prinivil) 40 mg DAILY PO Last administered on 05/20/19at 08:13; Start 05/18/19 at 09:00 Pantoprazole Sodium (Protonix) 40 mg DAILYAC PO Last administered on 05/20/19at 08:13; Start 05/18/19 at 07:30 Oxycodone HCl (Roxicodone) 15 mg PRN BID PRN PO MODERATE PAIN, SEVERE PAIN; Start 05/17/19 at 14:45 Doxycycline Hyclate (Vibra-Tab) 100 mg BID PO Last administered on 05/20/19at 08:13; Start 05/17/19 at 21:00 Ceftriaxone Sodium (Rocephin) 1 gm Q24H IVP Last administered on 05/20/19at 08:13; Start 05/18/19 at 09:00; Stop 05/20/19 at 12:00 Furosemide (Lasix) 40 mg DAILY IVP Last administered on 05/19/19at 09:00; Start 05/18/19 at 09:00; Stop 05/19/19 at 10:23; Status DC Enoxaparin Sodium (Lovenox 40mg Syringe) 40 mg Q24H SQ Last administered on 05/17/19at 16:43; Start 05/17/19 at 16:00; Stop 05/18/19 at 09:52; Status DC Magnesium Sulfate 50 ml @ 25 mls/hr 1X ONCE IV ; Start 05/17/19 at 15:00; Stop 05/17/19 at 16:59; Status UNV Zolpidem Tartrate (Ambien) 5 mg PRN QHS PRN PO INSOMNIA Last administered on 05/17/19at 21:06; Start 05/17/19 at 19:30 Diltiazem HCl (Cardizem Iv Push) 20 mg 1X ONCE IVP Last administered on 05/18/19at 03:51; Start 05/18/19 at 03:30; Stop 05/18/19 at 03:31; Status DC Diltiazem HCl 125 mg/Sodium Chloride 125 ml @ 0 mls/hr CONT PRN IV SEE I/O RECORD Last administered on 05/18/19at 17:51; Start 05/18/19 at 03:30; Stop 05/20/19 at 09:00; Status DC Enoxaparin Sodium (Lovenox 40mg Syringe) 40 mg Q24H SQ Last administered on 05/19/19at 09:03; Start 05/18/19 at 17:00 Lactobacillus Rhamnosus (Culturelle) 1 cap BID PO Last administered on 05/20/19at 08:12; Start 05/18/19 at 21:00 Potassium Chloride (Klor-Con) 40 meq DAILY PO Last administered on 05/19/19at 09:00; Start 05/18/19 at 13:00; Stop 05/20/19 at 06:00; Status DC Magnesium Sulfate 50 ml @ 25 mls/hr 1X ONCE IV Last administered on 05/18/19at 13:17; Start 05/18/19 at 12:30; Stop 05/18/19 at 14:29; Status DC Metoprolol Tartrate (Lopressor) 50 mg BID PO Last administered on 05/20/19at 08:12; Start 05/18/19 at 16:00 Aspirin (Ecotrin) 81 mg DAILYWBKFT PO Last administered on 05/20/19at 08:12; Start 05/18/19 at 16:00 Diltiazem HCl (Cardizem 24hr Cd) 120 mg DAILY PO Last administered on 05/20/19at 08:13; Start 05/19/19 at 12:00 Cefdinir (Omnicef) 300 mg BID PO ; Start 05/20/19 at 21:00 Active Scripts Active Reported Dicyclomine Hcl 10 Mg Capsule 1 Cap PO PRN TID PRN Nexium Capsule (Esomeprazole Magnesium) 40 Mg Capsule.dr 40 Mg PO DAILYAC Oxycodone Hcl Immed.release (Oxycodone Hcl) 15 Mg Tablet 15 Mg PO PRN Q12HR PRN Benazepril Hcl 40 Mg Tablet 1 Tab PO DAILY Amlodipine Besylate 10 Mg Tablet 10 Mg PO DAILY Alprazolam 1 Mg Tablet 1 Tab PO BID Hydrocortisone 453.6 Gm Cream..g. 1 Laura TP PRN BID Vitals/I & O Vital Sign - Last 24 Hours 05/19/19 05/19/19 05/19/19 05/19/19 11:16 14:26 15:00 16:13 Temp 97.8 97.8 97.8 97.8 Pulse 85 85 78 Resp 20 20 B/P (MAP) 132/100 (111) 132/100 119/79 (92) O2 Delivery Nasal Cannula Nasal Cannula Nasal Cannula O2 Flow Rate 2.0 2.0 2.0 05/19/19 05/19/19 05/19/19 05/19/19 19:00 20:00 21:08 23:30 Temp 98.5 97.5 98.5 97.5 Pulse 90 109 96 Resp 18 B/P (MAP) 115/76 (89) 115/76 102/69 (80) Pulse Ox 92 100 O2 Delivery Nasal Cannula Nasal Cannula Nasal Cannula O2 Flow Rate 2.0 2.0 2.0 05/20/19 05/20/19 05/20/19 05/20/19 03:21 07:00 08:00 08:12 Temp 97.6 97.8 97.6 97.8 Pulse 109 110 110 Resp 18 18 B/P (MAP) 144/78 (100) 121/89 (100) 121/89 Pulse Ox 94 93 O2 Delivery Nasal Cannula Room Air Room Air O2 Flow Rate 2.0 2.0 05/20/19 05/20/19 08:13 08:13 Pulse 110 110 B/P (MAP) 121/89 121/89 Intake and Output 05/19/19 05/19/19 05/20/19 15:00 23:00 07:00 Intake Total 360 ml 450 ml 0 ml Output Total 875 ml 700 ml 400 ml Balance -515 ml -250 ml -400 ml RICK CAROLINA MD May 20, 2019 10:49
[2019-05-20 11:00] VITALS: BP 118/86
[2019-05-20] MEDS ORDERED: CEFD300C PO (11:04)
[2019-05-20] MEDS ORDERED: ASPI-612 PO (11:04)
[2019-05-20] MEDS ORDERED: DILT120C99 PO (11:04)
[2019-05-20] MEDS ORDERED: DOXY100T PO (11:04)
[2019-05-20] MEDS ORDERED: METO50TA6 PO (11:04)
[2019-05-20] MEDS ORDERED: ATOR10TA60 PO (11:04)
[2019-05-20] MEDS ORDERED: WARF-78 PO (11:04)
--- NOTE | 2019-05-20 11:06 | DISCH ---
DISCHARGE INSTRUCTIONS Condition on Discharge Condition on Discharge: Stable Activity After Discharge Activity Instructions for Disc: Resume previous activity Other activity instructions: stay home except for doctor appt and labs Diet after Discharge Diet after Discharge: Cardiac, Regular Contacting the DRFidel after DC Call your doctor for: If your condition worsens Follow-Up Follow up with: dr. carolina 05/21 Follow Up With: dr. robertson in 2 weeks Warfarin Follow-Up Warfarin Follow UP: 05/22/19 dr. cleaning office RICK CAROLINA MD May 20, 2019 11:06
--- NOTE | 2019-05-20 11:12 | PDOC ---
Provider Note Provider Note discharge summary dictated # [id number] RICK CAROLINA MD May 20, 2019 11:12
--- NOTE | 2019-05-20 11:35 | DS ---
DATE OF DISCHARGE: 05/20/2019 DATE OF DISCHARGE: 05/20/2019 CONSULTANTS: Include Dr. Smith, Dr. Eric Carroll, Dr. Morrison, and Dr. Barrera. FINAL DIAGNOSES: 1. Left lower lobe pneumonia. 2. Acute hypoxic and hypercarbic respiratory failure, resolved. 3. Suspect acute diastolic congestive heart failure. 4. New onset atrial fibrillation with rapid ventricular response. The ventricular rate is now controlled. Echocardiogram pending. 5. Chronic kidney disease stage 3. 6. Hypomagnesemia. 7. Chest pain, resolved. 8. Coronary artery calcifications on a CAT scan of the chest. 9. Hypertension. 10. Gastroesophageal reflux disease. HOSPITAL COURSE: The patient is a 73-year-old obese white male, admitted to [facility] Emergency Room on 05/17/2019 with acute onset of shortness of breath on the night of admission. He says he was short of breath when he laid flat in bed and felt a little better when he stood up and occasional cough with no sputum, and he denied any fever at home. He was a little bit of short of breath 2 weeks ago he said, which got worse gradually over the last week prior to admission. At 11:30 p.m., he woke up with short of breath and some chest pain that lasted a few hours in the retrosternal area and then the chest pain resolved. He went to the [facility] Emergency Room where he was noted to have acute hypoxic respiratory failure, placed on BiPAP, and switched to oxygen per body mass and oxygen per nasal cannula. His proBNP was high. A chest x-ray was consistent with cardiomegaly and increased interstitial markings and a consolidated infiltrate in the left lower base. A CAT scan of the chest showed infiltrate in the left lower base consistent with pneumonia. He was treated with doxycycline and IV Rocephin, seen by Dr. Eric Carroll and Dr. Morrison for Infectious Disease, Dr. Smith for Pulmonary, and Dr. Barrera for Cardiology. He received IV Lasix. His shortness of breath improved and he was eventually weaned off the oxygen. Oxygen saturation was over 92% on room air. It did drop to 88% at bedtime. He was noted to be in new onset atrial fibrillation after admitted with rapid ventricular response, treated with IV diltiazem bolus and drip, eventually weaned off the diltiazem with a controlled ventricular rate, and was treated with metoprolol and oral diltiazem. Because he could not afford Eliquis or Xarelto, it was not started. So, he was started on Coumadin 5 mg every day for his atrial fibrillation. CAT scan of the chest did show some coronary artery calcifications. Blood cultures were negative. He did have a fever of 101.1 degrees after he was admitted. COVID-19 test was ordered but is pending. He did not have any fluffy alveolar type infiltrates on his chest x-ray. He was weaned off of his oxygen. Symptoms abated and he will be dismissed home today if it is okay with the Infectious Disease doctor and credit balance specialist. I discussed that with the nurse. If he is dismissed today, he will be having a protime INR in Dr. No's office on Wednesday05/22/2019. He will make an appointment to see Dr. No on 05/22/2019. He will be quarantined at home and will just leave only for doctor's appointments and labs. This will be done until his COVID-19 results which are pending and until they were obtained. He will be dismissed on aspirin 81 mg every day, atorvastatin 10 mg every day, cefdinir 300 mg b.i.d. for 7 days, diltiazem CD 120 mg every day, doxycycline 100 mg b.i.d. for 7 days, metoprolol tartrate 50 mg b.i.d., Coumadin 5 mg every day, alprazolam 1 mg b.i.d., benazepril 40 mg every day, dicyclomine 10 mg t.i.d. p.r.n., Nexium 40 mg every day, and oxycodone 15 mg p.o. every 12 hours p.r.n. for pain. He will stop his amlodipine. He will make an appointment to see Dr. No in the office on 05/22/2019, and will have a protime and INR done that day. He will also be seen by Dr. Barrera in about 2 weeks. He is aware of the possible stroke risk being on Coumadin, as INR is not therapeutic at the same time he is anxious to leave the hospital. As mentioned, he will not be able to afford Eliquis or Xarelto. RICK NO MD DR: IZABELA/sarbjit JOB#: [id number] / [id number]
--- NOTE | 2019-05-20 13:58 | PDOC ---
CARDIOLOGY PROGRESS NOTE SUBJECTIVE: No chest pain or dyspnea. Feels nearly back to normal. No syncope, palps Still in afib. OBJECTIVE: Vital Signs/I&O: Vital Signs Date Time Temp Pulse Resp B/P (MAP) Pulse Ox O2 Delivery O2 Flow Rate FiO2 05/20/19 11:00 97.9 100 16 118/86 (97) 94 Room Air 97.9 05/20/19 08:00 2.0 I & O 05/19/19 05/19/19 05/20/19 15:00 23:00 07:00 Intake Total 360 ml 450 ml 0 ml Output Total 875 ml 700 ml 400 ml Balance -515 ml -250 ml -400 ml Objective: a/o x 3. no edema. DIAGNOSTIC TESTING: Labs: Laboratory Tests 05/20/19 05:00 Laboratory Tests Test 05/20/19 05:00 Sodium Level 149 mmol/L (136-145) H Potassium Level 3.7 mmol/L (3.5-5.1) Chloride Level 110 mmol/L (98-107) H Carbon Dioxide Level 29 mmol/L (21-32) Anion Gap 10 (6-14) Blood Urea Nitrogen 29 mg/dL (8-26) H Creatinine 1.3 mg/dL (0.7-1.3) Estimated GFR (Cockcroft-Gault) 54.3 Glucose Level 97 mg/dL (70-99) Calcium Level 8.0 mg/dL (8.5-10.1) L ASSESSMENT: 1. Acute on chronic diastolic HF 2. Probable PNA 3. New onset afib. PLAN: -Continue metoprolol/Diltiazem. -Continue coumadin. -We will f/u with him in our office in 6 weeks with echo and consider outpt cvn VENU YODER MD May 20, 2019 13:58
--- NOTE | 2019-05-20 14:25 | NUR ---
Discharge Note: MALKA THOMPSON R1 [facility] ICU Discharge instructions and discharge home medications reviewed with Patient and a copy given. All questions have been answered and understanding verbalized. The following instructions and handouts were given: new prescriptions, discharge instructions Patient discharged to home with self care, patient told to stay home quarantine until covid 19 results are back.
[2019-05-20] MEDS ORDERED: WARFARIN 5 MG TABLET. PO SCH (16:00)
[2019-05-20] MEDS ORDERED: CEFDINIR 300 MG CAPSULE PO SCH (21:00)
[2019-05-20] MEDS ORDERED: ATORVASTATIN CALCIUM 10 MG TABLET. PO SCH (21:00)
== END 2019-05-20 14:00 | disposition home or self-care (01) | DRG 291 ==
LOC: ER 07:55 → ED HOLD 11:11 → 2 NORTH 13:25 → 1 WEST ICU 05-19 14:11
PROVIDERS: ADMIT Internal Medicine; ATTEND Internal Medicine
PROC: 5A09357 Assistance with Respiratory Ventilation, Less than 24 Consecutive Hours, Continuous Positive Airway Pressure (ICD-10-PCS; principal; 2019-05-17)
DX: I13.0 Hypertensive heart and chronic kidney disease with heart failure and stage 1 through stage 4 chronic kidney disease, or unspecified chronic kidney disease (principal); J18.9 Pneumonia, unspecified organism; J96.01 Acute respiratory failure with hypoxia; I50.33 Acute on chronic diastolic (congestive) heart failure; J96.02 Acute respiratory failure with hypercapnia; J44.0 Chronic obstructive pulmonary disease with (acute) lower respiratory infection; J44.1 Chronic obstructive pulmonary disease with (acute) exacerbation; N17.9 Acute kidney failure, unspecified; I48.91 Unspecified atrial fibrillation; E66.01 Morbid (severe) obesity due to excess calories; E83.42 Hypomagnesemia; G47.00 Insomnia, unspecified; G89.29 Other chronic pain; I25.10 Atherosclerotic heart disease of native coronary artery without angina pectoris; K21.9 Gastro-esophageal reflux disease without esophagitis; N18.3 Chronic kidney disease, stage 3 (moderate); N40.0 Benign prostatic hyperplasia without lower urinary tract symptoms; Z79.01 Long term (current) use of anticoagulants; Z79.82 Long term (current) use of aspirin; Z82.49 Family history of ischemic heart disease and other diseases of the circulatory system; Z79.899 Other long term (current) drug therapy; Z80.1 Family history of malignant neoplasm of trachea, bronchus and lung; Z83.3 Family history of diabetes mellitus; Z87.891 Personal history of nicotine dependence; Z90.49 Acquired absence of other specified parts of digestive tract; F32.9 Major depressive disorder, single episode, unspecified; F41.9 Anxiety disorder, unspecified; G47.09 Other insomnia; H35.30 Unspecified macular degeneration; K21.0 Gastro-esophageal reflux disease with esophagitis; K57.90 Diverticulosis of intestine, part unspecified, without perforation or abscess without bleeding; M10.9 Gout, unspecified; M19.90 Unspecified osteoarthritis, unspecified site; M47.816 Spondylosis without myelopathy or radiculopathy, lumbar region; Z88.2 Allergy status to sulfonamides; Z88.8 Allergy status to other drugs, medicaments and biological substances; Z68.36 Body mass index [BMI] 36.0-36.9, adult
CPT/HCPCS: 36415; 36600; 71045; 71250; 80048; 80053; 80061; 81001; 82805; 83605; 83735; 83880; 84145; 84443; 84484; 85007; 85025; 85610; 87040; 87635; 87804; 93005; 94640; 94660; 96365; 96366; 96375; J0696; J1650; J1940; J2930; J3475; J3490; J7060; 99285-25; G0378; U0002

== ENCOUNTER → 2019-06-01 | Outpatient (CLI) | payer OTHER ==
[2019-05-20 11:00] VITALS: BP 118/86
[~2019-06-01] MED LIST changes: +ASPI-612 PO; +ATOR10TA60 PO; +CEFD300C PO; +DICY10CA3 PO; +DILT120C99 PO; +DOXY100T PO; +ESOM40CA PO; +METO50TA6 PO; +WARF-78 PO
--- NOTE | 2019-06-01 12:23 | KCIC ---
Chest PA and lateral: Reason for examination: Short of breath. History of pneumonia. Comparison is made to previous studies dated 05/19/2019 and 05/17/2019. The heart size is normal. Mediastinum is unremarkable. Lung arizmendi show some patchy opacities at the left lung base which may reflect pneumonia. There also appear to be some minimal increased markings at the right lung base which may reflect some early infiltrates or atelectasis at the right lung base. No acute bony abnormalities are seen. Impression: Patchy opacities at the left lung base and some minimal increased markings at the right lung base. This may reflect presence of mild or early infiltrates. Electronically signed by: Tali Puri MD (06/01/2019 12:19 PM) [id number]
== END | disposition home or self-care (01) ==
LOC: KCIC 11:52
PROVIDERS: ATTEND Internal Medicine
DX: R06.02 Shortness of breath (principal)
CPT/HCPCS: 71046

== ENCOUNTER → 2019-06-12 | Outpatient (CLI) | payer OTHER ==
[2019-05-20 11:00] VITALS: BP 118/86
[~2019-06-12] MED LIST changes: +ACET325T21 PO; +FURO20TA3 PO
--- NOTE | 2019-06-12 10:53 | CARD ---
MR#: [id number] Date of Study: 06/12/2019 Ordering Physician: RICK CAROLINA, Referring Physician: RICK CAROLINA, Tech: Cynthia Summers RDCS APPROVED REPORT EXAM: Two-dimensional and M-mode echocardiogram with Doppler and color Doppler. Other Information Quality : Fair Rhythm : Atrial Fibrillation INDICATION Congestive Heart Failure 2D DIMENSIONS RVDd3.6 (2.9-3.5cm)Left Atrium(2D)4.4 (1.6-4.0cm) IVSd1.1 (0.7-1.1cm)Aortic Root(2D)3.2 (2.0-3.7cm) LVDd4.7 (3.9-5.9cm)LVOT Diameter2.7 (1.8-2.4cm) PWd1.1 (0.7-1.1cm)LVDs3.8 (2.5-4.0cm) FS (%) 10.0 %SV39.3 ml LVEF(%)15.0 (>50%) Aortic Valve AoV Peak German.79.1cm/sAoV VTI10.6cm AO Peak GR.2.5mmHgLVOT Peak German.76.2cm/s AO Mean GR.2mmHgAVA (VMAX)5.36cm2 KAITLIN (VTI)5.71vw5QF P 1/2 [id number] Mitral Valve MV E Aaqrtogr34.2cm/sMV DECEL NVUK632yn MV A Mtdhwsuk854.5cm/sE/A Ratio0.3 Tricuspid Valve TR P. Gukutpcl437wz/sRAP [id number] TR Peak Gr.[id number] LEFT VENTRICLE The left ventricle is mildly dilated. There is normal left ventricular wall thickness. Left ventricle systolic function is severely impaired. The Ejection Fraction is 10-15%. There is severe global hypo kinesis of the left ventricle. RIGHT VENTRICLE The right ventricle is mildly dilated. Systolic function is mildly reduced. ATRIA The left atrium is mildly dilated. The right atrium is mildly dilated. The interatrial septum is inta ct with no evidence for an atrial septal defect or patent foramen ovale as noted on 2-D or Doppler im aging. AORTIC VALVE The aortic valve is calcified but opens well. Doppler and Color Flow revealed mild aortic regurgitati on. There is no significant aortic valvular stenosis. MITRAL VALVE The mitral valve is calcified but opens well. There is no evidence of mitral valve prolapse. There is no mitral valve stenosis. Doppler and Color-flow revealed mild mitral regurgitation. TRICUSPID VALVE The tricuspid valve is normal in structure and function. Doppler and Color Flow revealed mild tricusp id regurgitation. There is mild pulmonary hypertension. The PA pressure was estimated at 36 mmHg. The re is no tricuspid valve stenosis. PULMONIC VALVE The pulmonic valve is not well visualized. Doppler and Color Flow revealed no pulmonic valvular regur gitation. There is no pulmonic valvular stenosis. GREAT VESSELS The aortic root is normal in size. The ascending aorta is not well seen. The IVC is normal in size an d collapses >50% with inspiration. PERICARDIAL EFFUSION There is no evidence of significant pericardial effusion. Critical Notification Critical Value: No <Conclusion> Left ventricle systolic function is severely impaired. The Ejection Fraction is 10-15%. Mild aortic regurgitation. Mild mitral regurgitation. Mild tricuspid regurgitation. There is mild pulmonary hypertension. The PA pressure was estimated at 36 mmHg. There is no evidence of significant pericardial effusion. Signed by : Richie Lew, Electronically Approved : 06/12/2019 10:53:21
== END | disposition home or self-care (01) ==
LOC: ECHO 09:47
PROVIDERS: ATTEND Internal Medicine
DX: I08.3 Combined rheumatic disorders of mitral, aortic and tricuspid valves (principal); I50.31 Acute diastolic (congestive) heart failure; I27.20 Pulmonary hypertension, unspecified
CPT/HCPCS: 93306

== ENCOUNTER 2019-07-17 04:14 | Inpatient (IN) | payer OTHER ==
[~2019-07-17] VITALS: Ht 180.3 cm; Wt 109.9 kg
[2019-07-17] VITALS (21 sets, daily range): BP systolic 85–161; BP diastolic 56–97
[~2019-07-17 04:14] MED LIST changes: +AMIO200T4 PO; +APIX5TAB PO; +FURO40TA4 PO; +METO2.5T PO; +METO50TA4 PO; -OXYC15TA PO; +OXYC15TA3 PO; +POTA20TA4 PO; -WARF-78 PO; +WARF5TAB2 PO
[2019-07-17] MEDS ORDERED: NITROGLYCERIN SUBLINGUAL 0.4 MG BOTTLE OF 25. SL ONE ×2 (04:28→04:30)
[2019-07-17] MEDS ORDERED: ETOMIDATE 20 MG/10 ML VIAL. IV ONE (04:45)
[2019-07-17] MEDS ORDERED: NITROGLYCERIN PREMIX 250 ML IV ONE (04:45)
[2019-07-17] MEDS ORDERED: ROCURONIUM 50 MG/5 ML VIAL. IV ONE (04:45)
[2019-07-17 04:46] LABS: BASO # 0.1 x10^3/uL (0.0-0.2); BASO % 1 % (0-3); EOS # 0.3 x10^3/uL (0.0-0.7); EOS % 2 % (0-3); HEMATOCRIT 52.8 % (39.0-53.0); HEMOGLOBIN 16.9 g/dL (13.0-17.5); LYMPH # 6.8 x10^3/uL (1.0-4.8); LYMPH % 42 % (24-48); MEAN CORPUSCULAR HEMOGLOBIN 29 pg (25-35); MEAN CORPUSCULAR HGB CONC 32 g/dL (31-37); MEAN CORPUSCULAR VOLUME 91 fL (79-100); MONO % 6 % (0-9); NEUT # 7.9 x10^3/uL (1.8-7.7); NEUT % 49 % (31-73); PLATELET COUNT 247 x10^3/uL (140-400); RED BLOOD COUNT 5.83 x10^6/uL (4.30-5.70); RED CELL DISTRIBUTION WIDTH 17.2 % (11.5-14.5)
--- NOTE | 2019-07-17 05:25 | PHYS DOC ---
Past Medical History Past Medical History: CHF, Hypertension Past Medical History Limited secondary to respiratory distress/acuity of condition Past Surgical History: Cholecystectomy Past Surgical History Limited secondary to respiratory distress/acuity of condition Smoking Status: Former Smoker Alcohol Use: Rarely Drug Use: None Social History Limited secondary to respiratory distress/acuity of condition General Adult EDM: Chief Complaint: SHORTNESS OF BREATH HPI: HPI: Patient is a 74 year old presents with history of CHF presents with report of sudden shortness of breath which started this AM. Reports he has had a cough since last night. Denies fever/chills. Denies trauma. Reports EF at "15%". History of present illness limited due to respiratory failure/acuity of condition Review of Systems: Review of Systems: Constitutional: Denies fever or chills Respiratory: Reports cough and shortness of breath Cardiovascular: Denies chest pain GI: Denies abdominal pain, nausea, or vomiting Review of systems limited due to respiratory distress/acuity of condition Heart Score: HEART Score for Chest Pain: HEART Score for Chest Pain Response (Comments) Value History Moderately Suspicious 1 ECG Nonspecific Repolarizatio 1 Age > 65 2 Risk Factors 1 or 2 Risk Factors 1 Troponin >1-<3x Normal Limit 1 Total 6 Risk Factors: Risk Factors: DM, Current or recent (<one month) smoker, HTN, HLP, family history of CAD, obesity. Risk Scores: Score 0 - 3: 2.5% MACE over next 6 weeks - Discharge Home Score 4 - 6: 20.3% MACE over next 6 weeks - Admit for Clinical Observation Score 7 - 10: 72.7% MACE over next 6 weeks - Early Invasive Strategies Current Medications: Current Medications Medications (Trade) Dose Ordered Sig/Chance Start Time Stop Time Status Last Admin Dose Admin Etomidate (Amidate) 20 mg 1X ONCE 07/17/19 04:45 07/17/19 04:46 DC Nitroglycerin (Nitrostat) 0.4 mg 1X ONCE 07/17/19 04:30 07/17/19 04:43 DC Nitroglycerin/ Dextrose 250 ml @ 0 mls/hr 1X ONCE 07/17/19 04:45 07/17/19 04:46 DC Propofol 100 ml @ 0 mls/hr CONT PRN 07/17/19 05:15 Rocuronium [place] (Zemuron) 50 mg 1X ONCE 07/17/19 04:45 07/17/19 04:46 DC Allergies: Allergies: Allergies Coded Allergies Type Severity Reaction Last Updated Verified Sulfa (Sulfonamide Antibiotics) Allergy Intermediate 03/30/17 Yes fentanyl Allergy Intermediate 03/30/17 Yes valacyclovir Allergy Intermediate 03/30/17 Yes Physical Exam: PE: Constitutional: Well developed, well nourished, severe respiratory distress, non-toxic appearance HENT: Normocephalic, atraumatic Eyes: Conjunctiva normal, no discharge Neck: Normal range of motion, no tenderness, supple Cardiovascular: Heart rate tachycardia, regular rhythm Lungs & Thorax: Bilateral breath sounds diminished, tachypnea, rales noted bilaterally, accessory muscles Abdomen: Soft, no tenderness Skin: Warm, dry, no erythema, abdomen mottled Extremities: No tenderness, ROM intact, 2+ edema Neurologic: Alert and oriented X 3, normal motor function, normal sensory function, no focal deficits noted Psychologic: Affect normal, judgment normal Current Patient Data: Labs: Laboratory Tests Test 07/17/19 04:29 White Blood Count 16.0 x10^3/uL (4.0-11.0) H Red Blood Count 5.83 x10^6/uL (4.30-5.70) H Hemoglobin 16.9 g/dL (13.0-17.5) Hematocrit 52.8 % (39.0-53.0) Mean Corpuscular Volume 91 fL (79-100) Mean Corpuscular Hemoglobin 29 pg (25-35) Mean Corpuscular Hemoglobin Concent 32 g/dL (31-37) Red Cell Distribution Width 17.2 % (11.5-14.5) H Platelet Count 247 x10^3/uL (140-400) Neutrophils (%) (Auto) 49 % (31-73) Lymphocytes (%) (Auto) 42 % (24-48) Monocytes (%) (Auto) 6 % (0-9) Eosinophils (%) (Auto) 2 % (0-3) Basophils (%) (Auto) 1 % (0-3) Neutrophils # (Auto) 7.9 x10^3/uL (1.8-7.7) H Lymphocytes # (Auto) 6.8 x10^3/uL (1.0-4.8) H Monocytes # (Auto) 1.0 x10^3/uL (0.0-1.1) Eosinophils # (Auto) 0.3 x10^3/uL (0.0-0.7) Basophils # (Auto) 0.1 x10^3/uL (0.0-0.2) Prothrombin Time 16.0 SEC (11.7-14.0) H Prothrombin Time INR 1.3 (0.8-1.1) H Activated Partial Thromboplast Time 33 SEC (24-38) Laboratory Tests 07/17/19 04:29 Vital Signs: Vital Signs Date Time Temp Pulse Resp B/P (MAP) Pulse Ox O2 Delivery O2 Flow Rate FiO2 07/17/19 04:19 97.6 131 40 204/113 (143) 88 15.0 97.6 EKG: EKG: @0419 Sinus tachycardia at 129bpm, Wide complex QRS 112ms, QT/QTc 324/476ms, t wave inversion V6 Radiology/Procedures: Radiology/Procedures: PROCEDURE: CHEST AP ONLY AP portable chest radiograph 07/17/2019 Clinical History: Post intubation. Respiratory distress. An AP supine portable digital radiograph of the chest was obtained. Comparison study is dated 06/13/2019. An anterior plate and bone screws overlies the mid and lower cervical spine. An ET tube has been placed. The tip of this tube is difficult to visualize but appears to overlie the trachea 3 cm above the level of the sabi. What appears to be an NG tube is seen which extends to overlie the mid thoracic esophagus. The cardiac silhouette is mildly enlarged. The thoracic aorta is tortuous. Bilateral perihilar infiltrates are seen which are new since the previous study. No pneumothorax or pleural effusion is noted. The osseous structures are unchanged. Impression: 1. ET and NG tube position as discussed above. The tip of the NG tube appears to overlie the mid thoracic esophagus. 2. Bilateral perihilar infiltrates. Electronically signed by: David Urena MD (07/17/2019 5:59 AM) [id number] Course & Med Decision Making: Course & Med Decision Making Pertinent Labs and Imaging studies reviewed. (See chart for details) Patient presents with severe respiratory distress. Patient hypoxic down to 70% upon arrival on RA. Patient only to 80%s on NRB. Patient mottled. Patient severely hypertensive. Hx of poor EF. Nitro SL and then nitro gtt applied to try to displace any extra pulmonary edema. Patient continued to have increased work of breathing with hypoxia. Decision to intubate. RSI performed with intubation performed with Glidescope while wearing PAPR and placement of 8.0 cuffed ETT at 24cm at teeth. CXR with good position. Increased opacities bilaterally possible infectious vs pulmonary edema. Labs obtained and posted to chart. BNP > 20k. Troponin slightly elevated. Creat elevated but at baseline per [employer] review. Lactic acid 8. IVF bolusing not provided as patient with severe CHF and posisble COVID19. Empiric antibiotic given. Patient's pressure subsequently became hypotensive. Levophed required. Central line placed to [facility]. Repeat CXR with good placement. Patient requiring admission for further evaluation and treatment. Discussed with Dr. No (PCP) who is in agreement with ICU admission. Dragon Disclaimer: Dragon Disclaimer: This electronic medical record was generated, in whole or in part, using a voice recognition dictation system. Central Line Central Line : Central Line Lumen: triple Central Line Procedure: sterile drapes applied, sterile dressing applied Central Line Postion: internal jugular (L) Anesthesia: Lidocaine cc's of anesthesia: 3 Complications: none Central Line Post Position: sutured, good blood return, position confirmed w/ CXR Intubation Intubation : Intubation Method: orotracheal Tube Size (cm): 8.0 Breath Sounds after Intubation: equal Intubation Complications: no complications Post Intubation Xray: Yes Progress/Xray Impression: ETT in good position, bilateral infiltrations noted Progress Intubation performed with Glidescope with COVID precautions Departure Departure Impression: Primary Impression: Septic shock Additional Impressions: Acute exacerbation of CHF (congestive heart failure) Qualified Codes: I50.9 - Heart failure, unspecified Suspected COVID-19 virus infection Elevated troponin I level Disposition: ADMITTED INPATIENT Admitting Physician: Jimenez No Condition: CRITICAL Referrals: JIMENEZ NO MD (PCP) Date and Time of Reassessment Date: July 17, 2019 Time: 06:20 Fluid Challenge Is the fluid challenge complet: No (possible COVID and history of CHF) IBW Target Volume Used: Yes BMI > 30: Yes Vital Signs Vital Signs: Vital Signs Date Time Temp Pulse Resp B/P (MAP) Pulse Ox O2 Delivery O2 Flow Rate FiO2 07/17/19 05:50 82 Ventilator 07/17/19 04:29 134 210/112 07/17/19 04:19 97.6 40 15.0 97.6 Temperature Source: Oral Respirations Respiratory Effort: Mechanical ventilation Respiratory Pattern: Tachypnea Cardiovascular Pulse Rhythm: Regular Heart: Nml rate, reg. rhythm Lung Sounds Breath Sounds: Coarse Capillary Refil Capillary Refill: Rt Hand < 3 seconds Peripheral Pulse Pulse Location: Radial Pulse Strength: Normal (2+) Pulse Assessment Method: Palpation Integumentary Skin: Warm, Diaphoretic Skin Moisture: Diaphoretic Skin Turgor: Normal Skin Color: edema Fingernail Color: WNL COVID-19 Assessment: COVID-19 Patient Risks: Age 65 or older: Yes Sign of co-morbidity: Yes Exp to person + for COVID: No Exp to PUI: No Travel from affected area: No Lower respiratory symptoms: Yes Fever: No PPE Use: Full PPE with N95 mask or PAPR: Yes (PAPR) Critical Care Time Critical care time was 30 minutes which includes time at bedside, spent in discussion of patient's care with specialists and/or family members, with interpretation of laboratory and/or radiological studies and is exclusive of procedures. JIMENEZ SQUIRES DO July 17, 2019 05:25
[2019-07-17 05:37] LABS: CALCIUM 8.2 mg/dL (8.5-10.1); CREATININE 2.3 mg/dL (0.7-1.3); POTASSIUM 3.9 mmol/L (3.5-5.1)
[2019-07-17 05:38] LABS: INFLUENZA A PATIENT NEGATIVE (NEGATIVE); INFLUENZA B PATIENT NEGATIVE (NEGATIVE)
[2019-07-17] MEDS ORDERED: ASPIRIN RECTAL 300 MG SUPP. PR ONE (05:45)
[2019-07-17] MEDS: PROPOFOL 100 ML IV PRN (05:45)
[2019-07-17 05:58] LABS: TOTAL BILIRUBIN 0.6 mg/dL (0.2-1.0); TOTAL PROTEIN 7.1 g/dL (6.4-8.2)
[2019-07-17] MEDS ORDERED: VANCOMYCIN PER PHARMACY MC PRN (06:00)
[2019-07-17] MEDS ORDERED: BUMETANIDE 1 MG/4 ML VIAL. IV ONE (06:00)
[2019-07-17] MEDS ORDERED: ONDANSETRON PF 4 MG/2 ML VIAL. IV PRN (06:00)
[2019-07-17] MEDS ORDERED: VANCOMYCIN 2 GM in IV NORMAL SALINE 500ML BAG 500 ML IV ONE (06:00)
[2019-07-17] MEDS ORDERED: PIPERACILLIN/TAZOBACTAM 4.5 GM in IV NORMAL SALINE 100ML 100 ML IV ONE (06:00)
--- NOTE | 2019-07-17 06:02 | RAD ---
AP portable chest radiograph 07/17/2019 Clinical History: Post intubation. Respiratory distress. An AP supine portable digital radiograph of the chest was obtained. Comparison study is dated 06/13/2019. An anterior plate and bone screws overlies the mid and lower cervical spine. An ET tube has been placed. The tip of this tube is difficult to visualize but appears to overlie the trachea 3 cm above the level of the sabi. What appears to be an NG tube is seen which extends to overlie the mid thoracic esophagus. The cardiac silhouette is mildly enlarged. The thoracic aorta is tortuous. Bilateral perihilar infiltrates are seen which are new since the previous study. No pneumothorax or pleural effusion is noted. The osseous structures are unchanged. Impression: 1. ET and NG tube position as discussed above. The tip of the NG tube appears to overlie the mid thoracic esophagus. 2. Bilateral perihilar infiltrates. Electronically signed by: David Urena MD (07/17/2019 5:59 AM) [id number]
[2019-07-17 06:06] LABS: BASE EXCESS COOX -8 mmol/L (-3-3); HCO3 COOX 23 mmol/L (21-28); METHEMOGLOBIN 0.4 % (0.0-1.9); PCO2 COOX 63 mmHg (35-46); PO2 COOX 61 mmHg (65-108); SAT O2 COOX 84 % (92-99)
[2019-07-17 06:22] LABS: ALBUMIN 3.2 g/dL (3.4-5.0); ALBUMIN/GLOBULIN RATIO 0.8 (1.0-1.7); MAGNESIUM 1.8 mg/dL (1.8-2.4)
[2019-07-17] MEDS ORDERED: NOREPINEPHRINE VIAL 8 MG in IV DEXTROSE 5% 250 ML IV PRN (06:30)
--- NOTE | 2019-07-17 06:45 | NUR ---
Pharmacy Vancomycin Dosing Note S:Consulted to monitor and dose vancomycin started 07/17/19. O:MALKA THOMPSON is a 74 year old M with Resp Failure--Possible Covid-19 . Height: 5 feet, 10 inches Weight: 113.447382 kg [place] Body Weight: 73.00 Adjusted Body Weight: 89.16 Dosing Weight: Actual Other Antibiotics: ZOSYN 4.5GM IV X1 IN ER (07/16) LABS: Last BUN: 34 Last Creatinine: 2.3 Creatinine Clearance: 36 mL/min Last WBC: 16.0 Last Procalcitonin: Tmax (past 24 hours): Microbiology: I/O: Drug Levels: Last level: on at Last dose given at Vancomycin Dosing: Loading Dose: 2000 mg x1 07/17/19 0615 Dosing Weight: Actual Target Trough: 15-20 A: Based on: Actual Wt and CrCl P: 1. 07/18/19 0630 Vancomycin 1750 mg IV q24h 2. Follow up Trough level on 07/19/19 at 0600 3. Pharmacy will continue to monitor, follow and adjust therapy as needed. IDALIA ABRAMS RPH, 07/17/19 0645 Signed: 07/17/19 at 0646 by IDALIA ABRAMS RPH PHA
--- NOTE | 2019-07-17 06:52 | EKG ---
[facility] [address] [place] [address] Test Date: 2019-07-17 Test Time: 04:19:44 Pat Name: MALKA THOMPSON Department: Room: 110 1 Gender: M [employer]: : [id number] Requested By: RICK SQUIRES Order Number: [id number] Reading MD: Cb Barrera MD Measurements Intervals [place] Rate: 129 P: -136 DC: 108 QRS: 46 QRSD: 112 T: 101 QT: 324 QTc: 476 Interpretive Statements PROBABLE SINUS TACHYCARDIA LVH CANNOT RULE OUT AFIB Electronically Signed On 07-17-2019 9:30:57 CDT by Cb Barrera MD
[2019-07-17] MEDS ORDERED: MORPHINE SULFATE 10 MG/ML VIAL. IV ONE (07:15)
[2019-07-17] MEDS: MIDAZOLAM 100mg/100ml NS BAG 100 ML IV PRN ×3 (07:15→22:29)
[2019-07-17] MEDS ORDERED: MORPHINE SULFATE 4 MG/ML VIAL. IV PRN ×2 (08:00→10:30)
--- NOTE | 2019-07-17 08:16 | RAD ---
INDICATION: Central line placement COMPARISON: Earlier same day FINDINGS: Frontal views of chest obtained. Endotracheal tube midthoracic trachea. Enteric tube coursing towards the diaphragm and not seen distally. There is a left-sided vascular catheter with tip projecting over the central aspect of the mediastinum. Interstitial and groundglass opacities are again seen bilaterally. IMPRESSION: * Groundglass and interstitial opacities throughout the bilateral lungs. Could be from pulmonary edema and/or multifocal infiltrate. * Interval placement of left-sided vascular catheter with tip projecting over the central aspect of the mediastinum. This does not cross into the region of the superior vena cava and could be secondary to brachiocephalic location but projects over both the arterial and venous structures. Electronically signed by: Jaiden Palacio MD (07/17/2019 8:13 AM) [id number]
--- NOTE | 2019-07-17 09:11 | PDOC2 ---
DEVIN GLOVER BURN OUT [employer]ER LACE 07/17/19 0911: CARDIAC CONSULT DATE OF CONSULT Date of Consult DATE: 07/17/19 TIME: 08:55 REASON FOR CONSULT Reason for Consult: CHF REFERRING PHYSICIAN Referring Physician: Dr. Lassiter SOURCE Source: Chart review, Patient HISTORY OF PRESENT ILLNESS HISTORY OF PRESENT ILLNESS This is a 74 yo male, known to our service from recent hospitalizations, who presented secondary to shortness of breath. Family reports he had feeling well. Began having shortness of breath the day prior to arrival. Mild cough. No reports of chest pain or fevers. Was hypoxic upon arrival to ED. Decision was made to intubated due to clinical decline. 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) Renal/: Benign prostatic enlarg., Other (right renal cyst) Endocrine: No pertinent hx Dermatology: No pertinent hx PAST SURGICAL HISTORY Past Surgical History ACDF 2002 and 2004, Cholecystectomy FAMILY HISTORY Family History: Coronary Artery Disease (father ) SOCIAL HISTORY Social History Smoke: Quit (10 yrs ago) ALCOHOL: none Drugs: None Lives: Alone CURRENT MEDICATIONS CURRENT MEDICATIONS Current Medications Medications (Trade) Dose Ordered Sig/Chance Route PRN Reason Start Time Stop Time Status Last Admin Dose Admin Nitroglycerin (Nitrostat) 0.4 mg 1X ONCE SL 07/17/19 04:30 07/17/19 04:43 DC 07/17/19 04:29 Nitroglycerin/ Dextrose 250 ml @ 0 mls/hr 1X ONCE IV 07/17/19 04:45 07/17/19 04:46 DC 07/17/19 04:47 Rocuronium [place] (Zemuron) 50 mg 1X ONCE IV 07/17/19 04:45 07/17/19 04:46 DC 07/17/19 04:44 Etomidate (Amidate) 20 mg 1X ONCE IV 07/17/19 04:45 07/17/19 04:46 DC 07/17/19 04:43 Propofol 100 ml @ 0 mls/hr CONT PRN IV SEE PROTOCOL 07/17/19 05:15 07/17/19 05:45 Aspirin (Aspirin Rectal Supp) 300 mg 1X ONCE ME 07/17/19 05:45 07/17/19 05:46 DC 07/17/19 06:01 Bumetanide (Bumex) 1 mg 1X ONCE IV 07/17/19 06:00 07/17/19 06:01 DC 07/17/19 06:00 Vancomycin HCl (Vanco Per Pharmacy) 1 each PRN DAILY PRN MC SEE COMMENTS 07/17/19 06:00 07/17/19 06:43 Vancomycin HCl 2 gm/Sodium Chloride 500 ml @ 250 mls/hr 1X ONCE IV 07/17/19 06:00 07/17/19 07:59 DC 07/17/19 06:15 Morphine Sulfate (Morphine Sulfate) 6 mg 1X ONCE IV 07/17/19 07:15 07/17/19 07:16 DC 07/17/19 07:08 Midazolam HCl 100 ml @ 0 mls/hr CONT PRN IV SEE PROTOCOL 07/17/19 07:15 07/17/19 07:15 ALLERGIES ALLERGIES: Coded Allergies: Sulfa (Sulfonamide Antibiotics) (Verified Allergy, Intermediate, 03/30/17) fentanyl (Verified Allergy, Intermediate, 03/30/17) valacyclovir (Verified Allergy, Intermediate, 03/30/17) ROS Review of System unobtainable PHYSICAL EXAM General: Other (sedated ) HEENT: Atraumatic, Mucous membr. moist/pink Lungs: Other (mechanical vent ) Heart: Regular rate, Normal S1, Normal S2, Other (distant heart tones ) Abdomen: Soft Extremities: Other (1+ bilateral LE edema ) Skin: No significant lesion Neuro: Other (unable to assess ) Psych/Mental Status: Other (sedated) MUSCULOSKELETAL: No deformity VITALS/I&O VITALS/I&O: Vital Signs Date Time Temp Pulse Resp B/P (MAP) Pulse Ox O2 Delivery O2 Flow Rate FiO2 07/17/19 07:37 82 Ventilator 07/17/19 07:08 27 07/17/19 07:00 97.6 108 166/76 (106) 97.6 07/17/19 04:19 15.0 LABS Lab: Laboratory Tests Test 07/17/19 04:29 07/17/19 05:10 07/17/19 05:13 5/18/20 05:39 White Blood Count 16.0 x10^3/uL (4.0-11.0) H Red Blood Count 5.83 x10^6/uL (4.30-5.70) H Hemoglobin 16.9 g/dL (13.0-17.5) Hematocrit 52.8 % (39.0-53.0) Mean Corpuscular Volume 91 fL (79-100) Mean Corpuscular Hemoglobin 29 pg (25-35) Mean Corpuscular Hemoglobin Concent 32 g/dL (31-37) Red Cell Distribution Width 17.2 % (11.5-14.5) H Platelet Count 247 x10^3/uL (140-400) Neutrophils (%) (Auto) 49 % (31-73) Lymphocytes (%) (Auto) 42 % (24-48) Monocytes (%) (Auto) 6 % (0-9) Eosinophils (%) (Auto) 2 % (0-3) Basophils (%) (Auto) 1 % (0-3) Neutrophils # (Auto) 7.9 x10^3/uL (1.8-7.7) H Lymphocytes # (Auto) 6.8 x10^3/uL (1.0-4.8) H Monocytes # (Auto) 1.0 x10^3/uL (0.0-1.1) Eosinophils # (Auto) 0.3 x10^3/uL (0.0-0.7) Basophils # (Auto) 0.1 x10^3/uL (0.0-0.2) Prothrombin Time 16.0 SEC (11.7-14.0) H Prothrombin Time INR 1.3 (0.8-1.1) H Activated Partial Thromboplast Time 33 SEC (24-38) Lactic Acid Level 8.5 mmol/L (0.4-2.0) *H Influenza Type A Antigen Negative (NEGATIVE) Influenza Type B Antigen Negative (NEGATIVE) Group A Streptococcus Rapid Negative (NEGATIVE) Sodium Level 145 mmol/L (136-145) Potassium Level 3.9 mmol/L (3.5-5.1) Chloride Level 105 mmol/L (98-107) Carbon Dioxide Level 27 mmol/L (21-32) Anion Gap 13 (6-14) Blood Urea Nitrogen 34 mg/dL (8-26) H Creatinine 2.3 mg/dL (0.7-1.3) H Estimated GFR (Cockcroft-Gault) 28.0 BUN/Creatinine Ratio 15 (6-20) Glucose Level 296 mg/dL (70-99) H Calcium Level 8.2 mg/dL (8.5-10.1) L Magnesium Level 1.8 mg/dL (1.8-2.4) Ferritin 325 ng/mL (26-388) Total Bilirubin 0.6 mg/dL (0.2-1.0) Aspartate Amino Transferase (AST) 31 U/L (15-37) Alanine Aminotransferase (ALT) 22 U/L (16-63) Alkaline Phosphatase 124 U/L (46-116) H Lactate Dehydrogenase 324 U/L (85-227) H Creatine Kinase 83 U/L (39-308) Creatine Kinase MB (Mass) 2.2 ng/mL (0.0-3.6) Creatine Kinase MB Relative Index 2.7 % (0-4) Troponin I Quantitative 0.075 ng/mL (0.000-0.055) TN-Rnb-G-Type Natriuretic Peptide 81836 pg/mL (0-124) H Total Protein 7.1 g/dL (6.4-8.2) Albumin 3.2 g/dL (3.4-5.0) L Albumin/Globulin Ratio 0.8 (1.0-1.7) L O2 Saturation 84 % (92-99) L Arterial Blood pH 7.17 (7.35-7.45) *L Arterial Blood pCO2 at Patient Temp 63 mmHg (35-46) *H Arterial Blood pO2 at Patient Temp 61 mmHg (65-108) L Arterial Blood HCO3 23 mmol/L (21-28) Arterial Blood Base Excess -8 mmol/L (-3-3) L Oxyhemoglobin 83.0 % Methemoglobin 0.4 % (0.0-1.9) Carbon Monoxide, Quantitative 0.3 % (0.0-1.9) FiO2 100 Laboratory Tests 07/17/19 04:29 Laboratory Tests 07/17/19 05:13 ECHOCARDIOGRAM ECHOCARDIOGRAM <Conclusion> Left ventricle systolic function is severely impaired. The Ejection Fraction is 10-15%. Mild aortic regurgitation. Mild mitral regurgitation. Mild tricuspid regurgitation. There is mild pulmonary hypertension. The PA pressure was estimated at 36 mmHg. There is no evidence of significant pericardial effusion. DATE: 06/12/19 1050 ASSESSMENT/PLAN ASSESSMENT/PLAN 1. Acute on chronic respiratory failure with a/c CHF; s/p intubation 2. Acute on chronic systolic CHF 3. Severe cardiomyopathy; LVEF 10-15% per echo 06/12/19. Cath has been deferred due to renal failure 4. Leukocytosis, lactic acidosis 5. Shock; requiring pressor support 6 CKD; Cr near baseline from June 05. Mild troponin elevation; initial 0.075. Possible type II, demand ischemia with multiple culprits noted above. No reports of recent CP 8. PAFIB s/p recent CV; maintaining SR Recommendations Diuresis with monitoring of renal function Trend troponin Resume metoprolol for rate when BP consistently adequate Resume Amiodarone Hold Eliquis for now Continue pressor support Await COVID If above negative, will plan for right and left heart cath Supportive care VENU YODER MD 07/17/19 1208: CARDIAC CONSULT ASSESSMENT/PLAN ASSESSMENT/PLAN Pt. seen and examined. Agree with above DIRECTOR CHEMISTRY note. Plan for cath after covid testing, given recurrent HF, severe LV dysfunction, elevated troponin, will pursue cath. Risk of PERRI has been previously discussed with patient, will update family again. Thanks DEVIN GLOVER APRN July 17, 2019 09:11 VENU YODER MD July 17, 2019 12:08
--- NOTE | 2019-07-17 10:16 | NUR ---
SS following for discharge planning. SS reviewed pt chart and discussed with RN, Peyton. Pt is from home and is currently on the vent. Pt is full code and COVID19 test pending. Pt has history of low ejection fraction. Cardiology consulted. Pt has been on services with [facility], ; fax [phone], in the past. SS will continue to follow for discharge planning.
[2019-07-17] MEDS ORDERED: ACETAMINOPHEN 650 MG/20.3 ML SOLUTION. FT PRN (10:30)
[2019-07-17] MEDS ORDERED: MAGNESIUM HYDROXIDE 2,400 MG/30 ML ORAL.SUSP. FT PRN (10:30)
--- NOTE | 2019-07-17 10:49 | PDOC ---
Provider Note Provider Note history and physical dictated # [id number] RICK CAROLINA MD July 17, 2019 10:49
[2019-07-17] MEDS ORDERED: ATROPINE 0.5 MG/5 ML DISP.SYRINGE. IV PRN (11:00)
[2019-07-17] MEDS ORDERED: IV NORMAL SALINE 500ML BAG 500 ML IV PRN (11:00)
[2019-07-17 11:14] LABS: BASE EXCESS ABG 2 mmol/L (-3-3); HCO3 ABG 27 mmol/L (21-28); PCO2 ABG 42 mmHg (35-46); PO2 ABG 326 mmHg (65-108); SAT O2 ABG 100 % (92-99)
[2019-07-17] MEDS ORDERED: MORPHINE SULFATE 2 MG/ML VIAL. IV PRN (11:15)
[2019-07-17] MEDS: DEXMEDETOMIDINE 400 MCG in IV NORMAL SALINE 100ML 96 ML IV PRN ×3 (11:16→22:33)
--- NOTE | 2019-07-17 11:29 | PDOC2 ---
CONSULT Date of Consult Date of Consult DATE: 07/17/19 TIME: 11:18 Reason for Consult Reason for Consult: CKD Identification/Chief Complaint Chief Complaint Unable to Obtain 04/02 Intubation Source Source: Chart review History of Present Illness Reason for Visit: Pt is a 74 yo male, recently hospitalized, who presented secondary to shortness of breath. Began having shortness of breath the day prior to arrival. Mild cough. No reports of chest pain or fevers. Was hypoxic upon arrival to ED and Cxr showing infiltrates,He was intubated he was hypotensive, requiring pressors. He has a Dx of severe cardiomyopathy with EF 10-15%, Past Medical History Cardiovascular: HTN Pulmonary: No pertinent hx CENTRAL NERVOUS SYSTEM: Other GI: Diverticulosis Heme/Onc: No pertinent hx Hepatobiliary: Cholelithiasis Psych: Other Musculoskeletal: Osteoarthritis Rheumatologic: No pertinent hx, Gout Infectious disease: No pertinent hx Renal/: Benign prostatic enlarg., Other Endocrine: No pertinent hx Family History Family History: Coronary Artery Disease (father ) Social History ALCOHOL: none Drugs: None Lives: Alone Current Problem List Problem List Problems Medical Problems: (1) Acute exacerbation of CHF (congestive heart failure) Status: Acute (2) Acute on chronic renal insufficiency Status: Acute (3) Elevated troponin I level Status: Acute (4) Septic shock Status: Acute (5) Suspected COVID-19 virus infection Status: Acute Current Medications Current Medications Current Medications Nitroglycerin (Nitrostat) 0.4 mg STK-MED ONCE SL ; Start 07/17/19 at 04:28; Stop 07/17/19 at 04:28; Status DC Nitroglycerin (Nitrostat) 0.4 mg 1X ONCE SL Last administered on 07/17/19at 04:29; Start 07/17/19 at 04:30; Stop 07/17/19 at 04:43; Status DC Nitroglycerin/ Dextrose 250 ml @ 0 mls/hr 1X ONCE IV Last administered on 07/17/19at 04:47; Start 07/17/19 at 04:45; Stop 07/17/19 at 04:46; Status DC Rocuronium [place] (Zemuron) 50 mg 1X ONCE IV Last administered on 07/17/19at 04:44; Start 07/17/19 at 04:45; Stop 07/17/19 at 04:46; Status DC Etomidate (Amidate) 20 mg 1X ONCE IV Last administered on 07/17/19at 04:43; Start 07/17/19 at 04:45; Stop 07/17/19 at 04:46; Status DC Propofol 100 ml @ 0 mls/hr CONT PRN IV SEE PROTOCOL Last administered on 07/17/19at 05:45; Start 07/17/19 at 05:15 Aspirin (Aspirin Rectal Supp) 300 mg 1X ONCE GA Last administered on 07/17/19at 06:01; Start 07/17/19 at 05:45; Stop 07/17/19 at 05:46; Status DC Bumetanide (Bumex) 1 mg 1X ONCE IV Last administered on 07/17/19at 06:00; Start 07/17/19 at 06:00; Stop 07/17/19 at 06:01; Status DC Piperacillin Sod/ Tazobactam Sod 4.5 gm/Sodium Chloride 100 ml @ 200 mls/hr 1X ONCE IV Last administered on 07/17/19at 11:14; Start 07/17/19 at 06:00; Stop 07/17/19 at 06:29; Status DC Vancomycin HCl (Vanco Per Pharmacy) 1 each PRN DAILY PRN MC SEE COMMENTS Last administered on 07/17/19at 06:43; Start 07/17/19 at 06:00; Stop 07/17/19 at 10:41; Status DC Vancomycin HCl 2 gm/Sodium Chloride 500 ml @ 250 mls/hr 1X ONCE IV Last administered on 07/17/19at 06:15; Start 07/17/19 at 06:00; Stop 07/17/19 at 07:59; Status DC Ondansetron HCl (Zofran) 4 mg PRN Q8HRS PRN IV NAUSEA/VOMITING; Start 07/17/19 at 06:00; Stop 07/18/19 at 05:59 Norepinephrine Bitartrate 8 mg/ Dextrose 258 ml @ 0 mls/hr CONT PRN IV SEE I/O RECORD; Start 07/17/19 at 06:30 Vancomycin HCl 1.75 gm/Sodium Chloride 500 ml @ 250 mls/hr Q24H IV ; Start 07/18/19 at 06:30; Stop 07/17/19 at 10:38; Status DC Vancomycin HCl (Vancomycin Trough Level) 1 each 1X ONCE MC ; Start 07/19/19 at 06:00; Stop 07/19/19 at 06:01; Status Cancel Morphine Sulfate (Morphine Sulfate) 6 mg 1X ONCE IV Last administered on 07/17/19at 07:08; Start 07/17/19 at 07:15; Stop 07/17/19 at 07:16; Status DC Midazolam HCl 100 ml @ 0 mls/hr CONT PRN IV SEE PROTOCOL Last administered on 07/17/19at 07:15; Start 07/17/19 at 07:15 Morphine Sulfate (Morphine Sulfate) 4 mg PRN Q1HR PRN IV SEE COMMENTS.; Start 07/17/19 at 08:00; Stop 07/17/19 at 10:38; Status DC Heparin Sodium (Porcine) (Heparin Sodium) 5,000 unit Q12HR SQ ; Start 07/17/19 at 21:00; Stop 07/17/19 at 10:38; Status DC Amiodarone HCl (Cordarone) 200 mg DAILY PO ; Start 07/18/19 at 09:00 Metolazone (Zaroxolyn) 2.5 mg QODAY PO ; Start 07/19/19 at 09:00 Potassium Chloride (Klor-Con) 20 meq BIDWMEALS PO ; Start 07/17/19 at 17:00 Furosemide (Lasix) 40 mg BID92 IVP ; Start 07/17/19 at 14:00 Morphine Sulfate (Morphine Sulfate) 2 mg PRN Q4HRS PRN IV SEE COMMENTS.; Start 07/17/19 at 10:30 Apixaban (Eliquis) 5 mg BID FT ; Start 07/17/19 at 21:00 Insulin Human Lispro (HumaLOG) 0-6 UNITS Q6HRS SQ ; Start 07/17/19 at 12:00 Lansoprazole (Prevacid) 30 mg DAILY FT ; Start 07/18/19 at 09:00 Acetaminophen (Tylenol) 650 mg PRN Q6HRS PRN FT MILD PAIN / TEMP > 100.3'F; Start 07/17/19 at 10:30 Alprazolam (Xanax) 1 mg BID FT ; Start 07/17/19 at 21:00 Magnesium Hydroxide (Milk Of Magnesia) 2,400 mg PRN DAILY PRN FT CONSTIPATION; Start 07/17/19 at 10:30 Dexmedetomidine HCl 400 mcg/ Sodium Chloride 100 ml @ 0 mls/hr CONT PRN IV PER PROTOCOL Last administered on 07/17/19at 11:16; Start 07/17/19 at 11:00 Sodium Chloride 500 ml @ 500 mls/hr 1X PRN PRN IV SEE COMMENTS; Start 07/17/19 at 11:00 Atropine Sulfate (ATROPINE 0.5mg SYRINGE) 0.5 mg PRN Q5MIN PRN IV SEE COMMENTS; Start 07/17/19 at 11:00 Morphine Sulfate (Morphine Sulfate) 2 mg PRN Q1HR PRN IV SEE COMMENTS.; Start 07/17/19 at 11:15 Morphine Sulfate (Morphine Sulfate) 4 mg PRN Q1HR PRN IV SEE COMMENTS.; Start 07/17/19 at 11:15 Active Scripts Active Toprol XL (Metoprolol Succinate) 50 Mg Tab.er.24h 50 Mg PO DAILY Metolazone 2.5 Mg Tablet 2.5 Mg PO QODAY Furosemide 40 Mg Tablet 40 Mg PO [id number] Klor-Con M20 (Potassium Chloride) 20 Meq Tab.er.prt 20 Meq PO BIDWMEALS Amiodarone Hcl 200 Mg Tablet 200 Mg PO DAILY Eliquis (Apixaban) 5 Mg Tablet 5 Mg PO BID Reported Acetaminophen 325 Mg Tablet 325 Mg PO Q6HRS Dicyclomine Hcl 10 Mg Capsule 1 Cap PO PRN TID PRN Nexium Capsule (Esomeprazole Magnesium) 40 Mg Capsule.dr 40 Mg PO DAILYAC Oxycodone Hcl Immed.release (Oxycodone Hcl) 15 Mg Tablet 15 Mg PO PRN Q12HR PRN Alprazolam 1 Mg Tablet 1 Tab PO BID Allergies Allergies: Coded Allergies: Sulfa (Sulfonamide Antibiotics) (Verified Allergy, Intermediate, 03/30/17) fentanyl (Verified Allergy, Intermediate, 03/30/17) valacyclovir (Verified Allergy, Intermediate, 03/30/17) ROS Review of System Unable to Obtain 2/2 Intubation, MV Physical Exam Physical Exam GEN Intubated on MV HEENT: Intubated NECK: supple HEART: S1, S2. LUNGS: decreased breath sounds at base. ABDOMEN: Obese and soft, nontender. EXTREMITIES: Lower extremities with 2+ edema bilaterally. SKIN: No rashes. NEUROLOGIC: grossly normal Antunez + Vital Signs Vital Signs Date Time Temp Pulse Resp B/P (MAP) Pulse Ox O2 Delivery O2 Flow Rate FiO2 07/17/19 10:00 66 24 100/67 (78) 100 Ventilator 07/17/19 08:30 99.1 99.1 07/17/19 04:19 15.0 Assessment & Plan CKD stage 3/4 Hospitalized in May with Cr 2.1 -2.4- new baseline vs DONTAE DONTAE in May 2019 with Cr of 2.5 - Cardiorenal Was on IV lasix and metolazone Acute on chronic respiratory failure with a/c CHF; s/p intubation Acute on chronic systolic CHF- diuresis , Cardiology following Severe cardiomyopathy; LVEF 10-15% per echo 06/12/19. Cath was deferred due to renal failure Leukocytosis, lactic acidosis COVID Pending Shock; requiring pressor support PAFIB s/p recent CV Labs Labs Laboratory Tests Test 07/17/19 04:29 07/17/19 05:10 07/17/19 05:13 07/17/19 05:39 White Blood Count 16.0 x10^3/uL (4.0-11.0) Red Blood Count 5.83 x10^6/uL (4.30-5.70) Hemoglobin 16.9 g/dL (13.0-17.5) Hematocrit 52.8 % (39.0-53.0) Mean Corpuscular Volume 91 fL (79-100) Mean Corpuscular Hemoglobin 29 pg (25-35) Mean Corpuscular Hemoglobin Concent 32 g/dL (31-37) Red Cell Distribution Width 17.2 % (11.5-14.5) Platelet Count 247 x10^3/uL (140-400) Neutrophils (%) (Auto) 49 % (31-73) Lymphocytes (%) (Auto) 42 % (24-48) Monocytes (%) (Auto) 6 % (0-9) Eosinophils (%) (Auto) 2 % (0-3) Basophils (%) (Auto) 1 % (0-3) Neutrophils # (Auto) 7.9 x10^3/uL (1.8-7.7) Lymphocytes # (Auto) 6.8 x10^3/uL (1.0-4.8) Monocytes # (Auto) 1.0 x10^3/uL (0.0-1.1) Eosinophils # (Auto) 0.3 x10^3/uL (0.0-0.7) Basophils # (Auto) 0.1 x10^3/uL (0.0-0.2) Prothrombin Time 16.0 SEC (11.7-14.0) Prothromb Time International Ratio 1.3 (0.8-1.1) Activated Partial Thromboplast Time 33 SEC (24-38) Lactic Acid Level 8.5 mmol/L (0.4-2.0) Influenza Type A Antigen Negative (NEGATIVE) Influenza Type B Antigen Negative (NEGATIVE) Group A Streptococcus Rapid Negative (NEGATIVE) Sodium Level 145 mmol/L (136-145) Potassium Level 3.9 mmol/L (3.5-5.1) Chloride Level 105 mmol/L (98-107) Carbon Dioxide Level 27 mmol/L (21-32) Anion Gap 13 (6-14) Blood Urea Nitrogen 34 mg/dL (8-26) Creatinine 2.3 mg/dL (0.7-1.3) Estimated GFR (Cockcroft-Gault) 28.0 BUN/Creatinine Ratio 15 (6-20) Glucose Level 296 mg/dL (70-99) Calcium Level 8.2 mg/dL (8.5-10.1) Magnesium Level 1.8 mg/dL (1.8-2.4) Ferritin 325 ng/mL (26-388) Total Bilirubin 0.6 mg/dL (0.2-1.0) Aspartate Amino Transf (AST/SGOT) 31 U/L (15-37) Alanine Aminotransferase (ALT/SGPT) 22 U/L (16-63) Alkaline Phosphatase 124 U/L (46-116) Lactate Dehydrogenase 324 U/L (85-227) Creatine Kinase 83 U/L (39-308) Creatine Kinase MB (Mass) 2.2 ng/mL (0.0-3.6) Creatine Kinase MB Relative Index 2.7 % (0-4) Troponin I Quantitative 0.075 ng/mL (0.000-0.055) BA-Azm-T-Type Natriuretic Peptide 34837 pg/mL (0-124) Total Protein 7.1 g/dL (6.4-8.2) Albumin 3.2 g/dL (3.4-5.0) Albumin/Globulin Ratio 0.8 (1.0-1.7) O2 Saturation 84 % (92-99) Arterial Blood pH 7.17 (7.35-7.45) Arterial Blood pCO2 at Patient Temp 63 mmHg (35-46) Arterial Blood pO2 at Patient Temp 61 mmHg (65-108) Arterial Blood HCO3 23 mmol/L (21-28) Arterial Blood Base Excess -8 mmol/L (-3-3) Oxyhemoglobin 83.0 % Methemoglobin 0.4 % (0.0-1.9) Carbon Monoxide, Quantitative 0.3 % (0.0-1.9) FiO2 100 Test 07/17/19 08:45 Lactic Acid Level 3.1 mmol/L (0.4-2.0) Troponin I Quantitative 2.380 ng/mL (0.000-0.055) Laboratory Tests Test 07/17/19 04:29 07/17/19 05:10 07/17/19 05:13 07/17/19 05:39 White Blood Count 16.0 x10^3/uL (4.0-11.0) Red Blood Count 5.83 x10^6/uL (4.30-5.70) Hemoglobin 16.9 g/dL (13.0-17.5) Hematocrit 52.8 % (39.0-53.0) Mean Corpuscular Volume 91 fL (79-100) Mean Corpuscular Hemoglobin 29 pg (25-35) Mean Corpuscular Hemoglobin Concent 32 g/dL (31-37) Red Cell Distribution Width 17.2 % (11.5-14.5) Platelet Count 247 x10^3/uL (140-400) Neutrophils (%) (Auto) 49 % (31-73) Lymphocytes (%) (Auto) 42 % (24-48) Monocytes (%) (Auto) 6 % (0-9) Eosinophils (%) (Auto) 2 % (0-3) Basophils (%) (Auto) 1 % (0-3) Neutrophils # (Auto) 7.9 x10^3/uL (1.8-7.7) Lymphocytes # (Auto) 6.8 x10^3/uL (1.0-4.8) Monocytes # (Auto) 1.0 x10^3/uL (0.0-1.1) Eosinophils # (Auto) 0.3 x10^3/uL (0.0-0.7) Basophils # (Auto) 0.1 x10^3/uL (0.0-0.2) Prothrombin Time 16.0 SEC (11.7-14.0) Prothromb Time International Ratio 1.3 (0.8-1.1) Activated Partial Thromboplast Time 33 SEC (24-38) Lactic Acid Level 8.5 mmol/L (0.4-2.0) Influenza Type A Antigen Negative (NEGATIVE) Influenza Type B Antigen Negative (NEGATIVE) Group A Streptococcus Rapid Negative (NEGATIVE) Sodium Level 145 mmol/L (136-145) Potassium Level 3.9 mmol/L (3.5-5.1) Chloride Level 105 mmol/L (98-107) Carbon Dioxide Level 27 mmol/L (21-32) Anion Gap 13 (6-14) Blood Urea Nitrogen 34 mg/dL (8-26) Creatinine 2.3 mg/dL (0.7-1.3) Estimated GFR (Cockcroft-Gault) 28.0 BUN/Creatinine Ratio 15 (6-20) Glucose Level 296 mg/dL (70-99) Calcium Level 8.2 mg/dL (8.5-10.1) Magnesium Level 1.8 mg/dL (1.8-2.4) Ferritin 325 ng/mL (26-388) Total Bilirubin 0.6 mg/dL (0.2-1.0) Aspartate Amino Transf (AST/SGOT) 31 U/L (15-37) Alanine Aminotransferase (ALT/SGPT) 22 U/L (16-63) Alkaline Phosphatase 124 U/L (46-116) Lactate Dehydrogenase 324 U/L (85-227) Creatine Kinase 83 U/L (39-308) Creatine Kinase MB (Mass) 2.2 ng/mL (0.0-3.6) Creatine Kinase MB Relative Index 2.7 % (0-4) Troponin I Quantitative 0.075 ng/mL (0.000-0.055) TS-Zkt-P-Type Natriuretic Peptide 46820 pg/mL (0-124) Total Protein 7.1 g/dL (6.4-8.2) Albumin 3.2 g/dL (3.4-5.0) Albumin/Globulin Ratio 0.8 (1.0-1.7) O2 Saturation 84 % (92-99) Arterial Blood pH 7.17 (7.35-7.45) Arterial Blood pCO2 at Patient Temp 63 mmHg (35-46) Arterial Blood pO2 at Patient Temp 61 mmHg (65-108) Arterial Blood HCO3 23 mmol/L (21-28) Arterial Blood Base Excess -8 mmol/L (-3-3) Oxyhemoglobin 83.0 % Methemoglobin 0.4 % (0.0-1.9) Carbon Monoxide, Quantitative 0.3 % (0.0-1.9) FiO2 100 Test 07/17/19 08:45 Lactic Acid Level 3.1 mmol/L (0.4-2.0) Troponin I Quantitative 2.380 ng/mL (0.000-0.055) Review All relevant outside records, renal labs, imaging studies, telemetry/EKG's were reviewed. Images Images * Groundglass and interstitial opacities throughout the bilateral lungs. Could be from pulmonary edema and/or multifocal infiltrate. * Interval placement of left-sided vascular catheter with tip projecting over the central aspect of the mediastinum. This does not cross into the region of the superior vena cava and could be secondary to brachiocephalic location but projects over both the arterial and venous structures GYPSY COLEMAN MD July 17, 2019 11:29
[2019-07-17 11:46] LABS: FIO2 ABG 100
[2019-07-17] MEDS: INSULIN LISPRO 300 UNITS/3 ML VIAL. SQ SCH ×2 (11:59→17:04)
--- NOTE | 2019-07-17 12:18 | HP ---
ADMIT DATE: 07/17/2019 INTENSIVE CARE UNIT: 103 HISTORY OF PRESENT ILLNESS: The patient is a 74-year-old morbidly obese white male who has a history of a severe cardiomyopathy with left ventricular ejection fraction of 10-15% with chronic systolic congestive heart failure, chronic kidney disease stage 3 with a serum creatinine baseline of 2.3 who has a previous history of a cardiorenal syndrome and paroxysmal atrial fibrillation, currently on Eliquis, who noted acute onset shortness of breath last night and sought help at the [facility] Emergency Room where he was noted to be in acute hypoxic respiratory failure requiring intubation and placement on the ventilator and chest x-ray showed infiltrates consistent with acute pulmonary edema. He was hypotensive and his lactic acid level was quite high at 8 and was repeated at 3. As mentioned, he was placed on the ventilator and he was placed in the intensive care unit. His white count was 16,000 and in the Emergency Room, he was given IV vancomycin, IV Zosyn, and given sublingual nitroglycerin. He was noted to be hypotensive and was given a dose of Bumex 1 mg IV in the Emergency Room and he was placed on pressors. He actually was seen in the office, I believe last week, and was fine without any shortness of breath and was walking fine, but he was drinking more fluids than he probably should have and he discussed that but he felt so much better. ALLERGIES: INCLUDE SULFA, FENTANYL AND VALACYCLOVIR. MEDICATIONS: Prior to admission, I do not have my office records with me, but I believe he was on amiodarone 200 mg p.o. daily, furosemide was 40 mg p.o. daily, potassium chloride I believe was 20 mEq daily, Eliquis 5 mg b.i.d., Nexium 40 mg every day, oxycodone 15 mg b.i.d. p.r.n., and I believe his metolazone was 2.5 mg on Mondays and . PAST MEDICAL HISTORY: Significant for severe cardiomyopathy with left ventricular ejection fraction of 10-15%, diagnosed on 06/12/2019 for echocardiogram and paroxysmal atrial fibrillation, on Eliquis. He has chronic kidney disease stage 3, previous cardiorenal syndrome, chronic systolic congestive heart failure, chronic gout, hypertension, hyperlipidemia, gastroesophageal reflux disease, cervical spondylosis, irritable bowel syndrome with diarrhea, and diverticulosis. He had a benign colon polypectomy in 2008, cervical laminectomies x 2 in 2004, anal fistula repair in 2004, and cholecystectomy. He had the paroxysmal atrial fibrillation with rapid ventricular response in 04/2019, pneumonia in 2019, and coronary artery disease based on coronary artery calcifications on a CAT scan of the chest earlier this year. SOCIAL HISTORY: He does not drink alcohol nor does he smoke cigarettes. Lives alone. FAMILY HISTORY: Mother had myocardial infarction and lung cancer, diabetes mellitus, and coronary artery disease. REVIEW OF SYSTEMS: Unobtainable as he is on the ventilator. PHYSICAL EXAMINATION: NEUROLOGIC: I opened up his eyes, his gaze was conjugate in anyway, but he is wearing mittens. VITAL SIGNS: Temperature is 97.6 degrees. Apical pulse is 84, respiratory rate 24, blood pressure 135/72, and oxygen saturation was 93%. HEENT: Gaze is conjugate. Mouth: He has got an oral gastric tube and he is intubated through the mouth into the ventilator. HEART: S1, S2. There is no S3 or murmur. He appears to be in sinus rhythm right now. LUNGS: Clear anteriorly. ABDOMEN: Soft. Bowel sounds were heard, nontender, obese. EXTREMITIES: Lower extremities with trace edema. SKIN: No rashes. NEUROLOGIC: He was able to raise his left hand, waved at me, and recognized me. LABORATORY DATA: White count was 16.0 with a hemoglobin 16.9, platelet count 347,000, 49 polys, and 42 lymphocytes. Arterial blood gas showed a pH of 7.17, pCO2 of 63, and a pO2 of 61. He had an INR of 1.3 and PTT of 33. Sodium 145, potassium 3.9, chloride 105, total CO2 of 27, BUN 34, creatinine 2.3, and blood sugar was 296. Magnesium was 1.8. Alkaline phosphatase 124. LDH was 324. Troponin level was elevated at 0.075, increasing to 2.38. ProBNP was 27,719, albumin 3.2. Lactic acid level was 8.5 on admission, improving to 3.1. His influenza A and B are negative. Group A strep was negative. He had a chest x-ray done, which showed ground-glass interstitial opacities bilaterally, which could be consistent with pulmonary edema and/or multifocal infiltrate. ASSESSMENT: 1. Acute pulmonary edema. 2. Acute on chronic systolic congestive heart failure. 3. Severe cardiomyopathy with left ventricular ejection fraction 10-15%. 4. Acute hypoxic and hypercarbic respiratory failure, on the ventilator. 5. Paroxysmal atrial fibrillation, currently in sinus rhythm. 6. Cardiogenic shock, maintained on pressors. 7. Chronic kidney disease stage 3. 8. Gastroesophageal reflux disease. 9. Leukocytosis, most likely stress demargination. PLAN: He will be consulting Dr. Ricks for Pulmonary, Dr. Lew for Cardiology, Dr. Ji Carroll for Infectious Disease, and Dr. Mercado for Nephrology. We will continue with his ventilator support. Continue with the IV Lasix and the metolazone every other day, potassium chloride, recheck his labs tomorrow and repeat the chest x-ray tomorrow. Follow his intake and output. Continue the Antunez catheter. Continue his pressors and wean as tolerated and we will also put him on a Humalog insulin sliding scale every 6 hours and start him on some tube feeding and also check a hemoglobin A1c tomorrow. Continue on Eliquis and amiodarone for his paroxysmal atrial fibrillation. He will be started on nasogastric tube feedings. Also put him on Nexium through his orogastric tube. Also, I discontinued his IV vancomycin and he is not receiving any antibiotics at this time and he will be seen by the Infectious Disease doctor. RICK CAROLINA MD DR: IZABELA/sarbjit JOB#: [id number] / [id number]
[2019-07-17] MEDS: FUROSEMIDE 40 MG/4 ML VIAL. IVP SCH (13:36)
[2019-07-17 13:46] LABS: BILIRUBIN,URINE SMALL (NEG); CLARITY,URINE CLOUDY; NITRITE,URINE NEGATIVE (NEG); PROTEIN,URINE 100 mg/dL (NEG-TRACE)
[2019-07-17 14:02] LABS: COLOR,URINE DK YELLOW
--- NOTE | 2019-07-17 14:04 | PDOC ---
Infectious Disease Note Vital Signs: Vital Signs Vital Signs Date Time Temp Pulse Resp B/P (MAP) Pulse Ox O2 Delivery O2 Flow Rate FiO2 07/17/19 13:37 100 Ventilator 15.0 07/17/19 12:00 98.9 65 24 107/66 (80) 98.9 Medications: Inpatient Meds: Current Medications Medications (Trade) Dose Ordered Sig/Chance Start Time Stop Time Status Last Admin Dose Admin Acetaminophen (Tylenol) 650 mg PRN Q6HRS PRN 07/17/19 10:30 Alprazolam (Xanax) 1 mg BID 07/17/19 21:00 Amiodarone HCl (Cordarone) 200 mg DAILY 07/18/19 09:00 Apixaban (Eliquis) 5 mg BID 07/17/19 21:00 Aspirin (Aspirin Rectal Supp) 300 mg 1X ONCE 07/17/19 05:45 07/17/19 05:46 DC 07/17/19 06:01 300 MG Atropine Sulfate (ATROPINE 0.5mg SYRINGE) 0.5 mg PRN Q5MIN PRN 07/17/19 11:00 Bumetanide (Bumex) 1 mg 1X ONCE 07/17/19 06:00 07/17/19 06:01 DC 07/17/19 06:00 1 MG Dexmedetomidine HCl 400 mcg/ Sodium Chloride 100 ml @ 0 mls/hr CONT PRN 07/17/19 11:00 07/17/19 11:16 5.65 MLS/HR Etomidate (Amidate) 20 mg 1X ONCE 07/17/19 04:45 07/17/19 04:46 DC 07/17/19 04:43 20 MG Furosemide (Lasix) 40 mg BID92 07/17/19 14:00 07/17/19 13:36 40 MG Heparin Sodium (Porcine) (Heparin Sodium) 5,000 unit Q12HR 07/17/19 21:00 07/17/19 10:38 DC Insulin Human Lispro (HumaLOG) 0-6 UNITS Q6HRS 07/17/19 12:00 Lansoprazole (Prevacid) 30 mg DAILY 07/18/19 09:00 Magnesium Hydroxide (Milk Of Magnesia) 2,400 mg PRN DAILY PRN 07/17/19 10:30 Metolazone (Zaroxolyn) 2.5 mg QODAY 07/19/19 09:00 Midazolam HCl 100 ml @ 0 mls/hr CONT PRN 07/17/19 07:15 07/17/19 11:20 10 MLS/HR Morphine Sulfate (Morphine Sulfate) 4 mg PRN Q1HR PRN 07/17/19 11:15 Nitroglycerin (Nitrostat) 0.4 mg 1X ONCE 07/17/19 04:30 07/17/19 04:43 DC 07/17/19 04:29 0.4 MG Nitroglycerin/ Dextrose 250 ml @ 0 mls/hr 1X ONCE 07/17/19 04:45 07/17/19 04:46 DC 07/17/19 04:47 1.5 MLS/HR Norepinephrine Bitartrate 8 mg/ Dextrose 258 ml @ 0 mls/hr CONT PRN 07/17/19 06:30 Ondansetron HCl (Zofran) 4 mg PRN Q8HRS PRN 07/17/19 06:00 07/18/19 05:59 Piperacillin Sod/ Tazobactam Sod 4.5 gm/Sodium Chloride 100 ml @ 200 mls/hr 1X ONCE 07/17/19 06:00 07/17/19 06:29 DC 07/17/19 11:14 200 MLS/HR Potassium Chloride (Klor-Con) 20 meq BIDWMEALS 07/17/19 17:00 Propofol 100 ml @ 0 mls/hr CONT PRN 07/17/19 05:15 07/17/19 05:45 1.7 MLS/HR Rocuronium [place] (Zemuron) 50 mg 1X ONCE 07/17/19 04:45 07/17/19 04:46 DC 07/17/19 04:44 50 MG Sodium Chloride 500 ml @ 500 mls/hr 1X PRN PRN 07/17/19 11:00 Vancomycin HCl (Vanco Per Pharmacy) 1 each PRN DAILY PRN 07/17/19 06:00 07/17/19 10:41 DC 07/17/19 06:43 1 EACH Vancomycin HCl (Vancomycin Trough Level) 1 each 1X ONCE 07/19/19 06:00 07/19/19 06:01 Cancel Vancomycin HCl 1.75 gm/Sodium Chloride 500 ml @ 250 mls/hr Q24H 07/18/19 06:30 07/17/19 10:38 DC Vancomycin HCl 2 gm/Sodium Chloride 500 ml @ 250 mls/hr 1X ONCE 07/17/19 06:00 07/17/19 07:59 DC 07/17/19 06:15 250 MLS/HR Labs: Lab Laboratory Tests Test 07/17/19 04:29 07/17/19 05:10 07/17/19 05:13 07/17/19 05:39 White Blood Count 16.0 x10^3/uL (4.0-11.0) Red Blood Count 5.83 x10^6/uL (4.30-5.70) Hemoglobin 16.9 g/dL (13.0-17.5) Hematocrit 52.8 % (39.0-53.0) Mean Corpuscular Volume 91 fL (79-100) Mean Corpuscular Hemoglobin 29 pg (25-35) Mean Corpuscular Hemoglobin Concent 32 g/dL (31-37) Red Cell Distribution Width 17.2 % (11.5-14.5) Platelet Count 247 x10^3/uL (140-400) Neutrophils (%) (Auto) 49 % (31-73) Lymphocytes (%) (Auto) 42 % (24-48) Monocytes (%) (Auto) 6 % (0-9) Eosinophils (%) (Auto) 2 % (0-3) Basophils (%) (Auto) 1 % (0-3) Neutrophils # (Auto) 7.9 x10^3/uL (1.8-7.7) Lymphocytes # (Auto) 6.8 x10^3/uL (1.0-4.8) Monocytes # (Auto) 1.0 x10^3/uL (0.0-1.1) Eosinophils # (Auto) 0.3 x10^3/uL (0.0-0.7) Basophils # (Auto) 0.1 x10^3/uL (0.0-0.2) Prothrombin Time 16.0 SEC (11.7-14.0) Prothromb Time International Ratio 1.3 (0.8-1.1) Activated Partial Thromboplast Time 33 SEC (24-38) Lactic Acid Level 8.5 mmol/L (0.4-2.0) Influenza Type A Antigen Negative (NEGATIVE) Influenza Type B Antigen Negative (NEGATIVE) Group A Streptococcus Rapid Negative (NEGATIVE) Sodium Level 145 mmol/L (136-145) Potassium Level 3.9 mmol/L (3.5-5.1) Chloride Level 105 mmol/L (98-107) Carbon Dioxide Level 27 mmol/L (21-32) Anion Gap 13 (6-14) Blood Urea Nitrogen 34 mg/dL (8-26) Creatinine 2.3 mg/dL (0.7-1.3) Estimated GFR (Cockcroft-Gault) 28.0 BUN/Creatinine Ratio 15 (6-20) Glucose Level 296 mg/dL (70-99) Calcium Level 8.2 mg/dL (8.5-10.1) Magnesium Level 1.8 mg/dL (1.8-2.4) Ferritin 325 ng/mL (26-388) Total Bilirubin 0.6 mg/dL (0.2-1.0) Aspartate Amino Transf (AST/SGOT) 31 U/L (15-37) Alanine Aminotransferase (ALT/SGPT) 22 U/L (16-63) Alkaline Phosphatase 124 U/L (46-116) Lactate Dehydrogenase 324 U/L (85-227) Creatine Kinase 83 U/L (39-308) Creatine Kinase MB (Mass) 2.2 ng/mL (0.0-3.6) Creatine Kinase MB Relative Index 2.7 % (0-4) Troponin I Quantitative 0.075 ng/mL (0.000-0.055) XQ-Rcb-Z-Type Natriuretic Peptide 07249 pg/mL (0-124) Total Protein 7.1 g/dL (6.4-8.2) Albumin 3.2 g/dL (3.4-5.0) Albumin/Globulin Ratio 0.8 (1.0-1.7) O2 Saturation 84 % (92-99) Arterial Blood pH 7.17 (7.35-7.45) Arterial Blood pCO2 at Patient Temp 63 mmHg (35-46) Arterial Blood pO2 at Patient Temp 61 mmHg (65-108) Arterial Blood HCO3 23 mmol/L (21-28) Arterial Blood Base Excess -8 mmol/L (-3-3) Oxyhemoglobin 83.0 % Methemoglobin 0.4 % (0.0-1.9) Carbon Monoxide, Quantitative 0.3 % (0.0-1.9) FiO2 100 Test 07/17/19 08:45 07/17/19 10:30 Lactic Acid Level 3.1 mmol/L (0.4-2.0) Troponin I Quantitative 2.380 ng/mL (0.000-0.055) O2 Saturation 100 % (92-99) Arterial Blood pH 7.43 (7.35-7.45) Arterial Blood pCO2 at Patient Temp 42 mmHg (35-46) Arterial Blood pO2 at Patient Temp 326 mmHg (65-108) Arterial Blood HCO3 27 mmol/L (21-28) Arterial Blood Base Excess 2 mmol/L (-3-3) FiO2 100 Objective: Assessment: Pt seen and examined ID consult dictated IMP: Sepsis acute hypoxic resp failure chf leucocytosis lactic acidosis ckd cm Plan: Plan of Care restart zosyn,renal dosing agree to dc iv vanc f/u cult and labs in am cont supportive care d/w rn MARGRET Solis MD July 17, 2019 14:04
[2019-07-17 14:05] LABS: BACTERIA,URINE FEW /HPF (0-FEW); RBC,URINE >40 /HPF (0-2); SQUAMOUS EPITHELIAL CELL,UR OCC /LPF
--- NOTE | 2019-07-17 14:35 | CONS ---
DATE OF CONSULTATION: 07/17/2019 REFERRING PHYSICIAN: Jimenez No MD REASON FOR CONSULTATION: Sepsis, antibiotic management. HISTORY OF PRESENT ILLNESS: The patient is a 74-year-old male who resides in [facility], presented to the ER with acute onset of shortness of breath last night. He was found to be in acute hypoxic respiratory failure requiring intubation and placement on ventilator with chest x-ray showing bilateral infiltrates. He was hypotensive, requiring pressors. Lactate was high at 8. ET tube was placed. He also underwent left IJ placement. White count was 16,000. He was given IV vancomycin and Zosyn. He also had high BNP, troponin. The patient has a history of severe cardiomyopathy with ejection fraction of 10-15%, chronic systolic congestive heart failure, CKD, paroxysmal atrial fibrillation, on amiodarone. The patient was admitted in 04/2019 with respiratory symptoms and CHF. ID consult has been requested for antibiotic management. PAST MEDICAL HISTORY: Severe cardiomyopathy with left ventricular ejection fraction 10-15%, atrial fibrillation, CKD, chronic systolic congestive heart failure, chronic gout, hypertension, hyperlipidemia, GERD, cervical spondylosis, irritable bowel syndrome with diarrhea, diverticulosis, colon polyp, cervical laminectomy, history of fistula repair, cholecystectomy, coronary artery disease. SOCIAL HISTORY: He does not smoke. No alcohol. Lives in [facility] alone. FAMILY HISTORY: As per HPI. REVIEW OF SYSTEMS: Unobtainable as the patient is on ventilator. CURRENT MEDICATIONS: Vancomycin, 1 dose of Zosyn. Other medications reviewed in medication list. ALLERGIES: SULFA, FENTANYL AND VALACYCLOVIR. PHYSICAL EXAMINATION: VITAL SIGNS: Temperature 98.9, pulse 65, respiratory rate 24, blood pressure 107/66, oxygen saturation 100% on FiO2 at 100%. GENERAL: Intubated, sedated. HEENT: ETT and OG tube in place. NECK: Supple. HEART: S1, S2. ABDOMEN: Soft, bowel sounds present, nontender, nondistended. LUNGS: Clear anteriorly. EXTREMITIES: Trace edema, no cyanosis. DERMATOLOGIC: Warm, dry. No generalized rash. NEUROLOGIC: Intubated, sedated. PSYCHIATRIC: Unable to assess. LABORATORY DATA: WBC 16, hemoglobin 16.9, hematocrit 52.8, platelets 247. Sodium 145, potassium 3.9, chloride 105, bicarbonate 27, BUN 34, creatinine 2.3, glucose 296. Lactate 3.1, it was 8. Alkaline phosphatase 124, LDH 324. Troponin 2.380. BNP 27,000. Albumin 3.2. Influenza screen negative. Group A rapid negative. COVID-19 pending. IMAGING: Chest x-ray shows ground-glass interstitial opacities throughout bilateral lungs, could be from pulmonary edema and/or multifocal infiltrate interval placement of left-sided vascular catheter with tip projecting over the central aspect of the mediastinum. IMPRESSION: 1. Sepsis. 2. Leukocytosis. 3. Lactic acidosis. 4. Acute hypoxic respiratory failure, status post intubation. Bilateral pulmonary infiltrates 5. Congestive heart failure. 6. Cardiomyopathy. 7. DONTAE on Chronic kidney disease. 8. Gastroesophageal reflux disease. 9. On amiodarone. RECOMMENDATIONS: 1. Discontinue IV vancomycin. 2. Start Zosyn. 3. Follow up COVID-19 results. 4. Follow up labs and cultures. 5. Continue supportive care. 6. Pulmonary and renal team consulted Critically Ill Discussed with nursing staff. Thank you, Dr. No, for consulting Infectious Disease to participate in this patient's care. If you have any questions, do not hesitate to contact me. ICU CCT TIME: 35 minutes spent. Discussed with nursing staff. MARGRET DORSEY MD DR: BOWEN/sarbjit JOB#: [id number] / [id number] ASHLEY
--- NOTE | 2019-07-17 16:32 | PDOC ---
PULMONARY PROGRESS NOTES Vitals Vital Signs Date Time Temp Pulse Resp B/P (MAP) Pulse Ox O2 Delivery O2 Flow Rate FiO2 07/17/19 14:55 98 Ventilator 07/17/19 14:07 15.0 07/17/19 14:00 66 24 135/75 (95) 07/17/19 12:00 98.9 98.9 HEENT: Other Lungs: Crackles Cardiovascular: Other Abdomen: Soft, Non-tender Extremities: Other Labs Laboratory Tests Test 07/17/19 04:29 07/17/19 05:10 07/17/19 05:13 07/17/19 05:39 White Blood Count 16.0 x10^3/uL (4.0-11.0) Red Blood Count 5.83 x10^6/uL (4.30-5.70) Hemoglobin 16.9 g/dL (13.0-17.5) Hematocrit 52.8 % (39.0-53.0) Mean Corpuscular Volume 91 fL (79-100) Mean Corpuscular Hemoglobin 29 pg (25-35) Mean Corpuscular Hemoglobin Concent 32 g/dL (31-37) Red Cell Distribution Width 17.2 % (11.5-14.5) Platelet Count 247 x10^3/uL (140-400) Neutrophils (%) (Auto) 49 % (31-73) Lymphocytes (%) (Auto) 42 % (24-48) Monocytes (%) (Auto) 6 % (0-9) Eosinophils (%) (Auto) 2 % (0-3) Basophils (%) (Auto) 1 % (0-3) Neutrophils # (Auto) 7.9 x10^3/uL (1.8-7.7) Lymphocytes # (Auto) 6.8 x10^3/uL (1.0-4.8) Monocytes # (Auto) 1.0 x10^3/uL (0.0-1.1) Eosinophils # (Auto) 0.3 x10^3/uL (0.0-0.7) Basophils # (Auto) 0.1 x10^3/uL (0.0-0.2) Prothrombin Time 16.0 SEC (11.7-14.0) Prothromb Time International Ratio 1.3 (0.8-1.1) Activated Partial Thromboplast Time 33 SEC (24-38) Lactic Acid Level 8.5 mmol/L (0.4-2.0) Influenza Type A Antigen Negative (NEGATIVE) Influenza Type B Antigen Negative (NEGATIVE) Group A Streptococcus Rapid Negative (NEGATIVE) Sodium Level 145 mmol/L (136-145) Potassium Level 3.9 mmol/L (3.5-5.1) Chloride Level 105 mmol/L (98-107) Carbon Dioxide Level 27 mmol/L (21-32) Anion Gap 13 (6-14) Blood Urea Nitrogen 34 mg/dL (8-26) Creatinine 2.3 mg/dL (0.7-1.3) Estimated GFR (Cockcroft-Gault) 28.0 BUN/Creatinine Ratio 15 (6-20) Glucose Level 296 mg/dL (70-99) Calcium Level 8.2 mg/dL (8.5-10.1) Magnesium Level 1.8 mg/dL (1.8-2.4) Ferritin 325 ng/mL (26-388) Total Bilirubin 0.6 mg/dL (0.2-1.0) Aspartate Amino Transf (AST/SGOT) 31 U/L (15-37) Alanine Aminotransferase (ALT/SGPT) 22 U/L (16-63) Alkaline Phosphatase 124 U/L (46-116) Lactate Dehydrogenase 324 U/L (85-227) Creatine Kinase 83 U/L (39-308) Creatine Kinase MB (Mass) 2.2 ng/mL (0.0-3.6) Creatine Kinase MB Relative Index 2.7 % (0-4) Troponin I Quantitative 0.075 ng/mL (0.000-0.055) QS-Nkc-K-Type Natriuretic Peptide 07560 pg/mL (0-124) Total Protein 7.1 g/dL (6.4-8.2) Albumin 3.2 g/dL (3.4-5.0) Albumin/Globulin Ratio 0.8 (1.0-1.7) O2 Saturation 84 % (92-99) Arterial Blood pH 7.17 (7.35-7.45) Arterial Blood pCO2 at Patient Temp 63 mmHg (35-46) Arterial Blood pO2 at Patient Temp 61 mmHg (65-108) Arterial Blood HCO3 23 mmol/L (21-28) Arterial Blood Base Excess -8 mmol/L (-3-3) Oxyhemoglobin 83.0 % Methemoglobin 0.4 % (0.0-1.9) Carbon Monoxide, Quantitative 0.3 % (0.0-1.9) FiO2 100 Test 07/17/19 08:45 07/17/19 10:30 07/17/19 13:32 07/17/19 13:34 Lactic Acid Level 3.1 mmol/L (0.4-2.0) Troponin I Quantitative 2.380 ng/mL (0.000-0.055) 3.718 ng/mL (0.000-0.055) O2 Saturation 100 % (92-99) Arterial Blood pH 7.43 (7.35-7.45) Arterial Blood pCO2 at Patient Temp 42 mmHg (35-46) Arterial Blood pO2 at Patient Temp 326 mmHg (65-108) Arterial Blood HCO3 27 mmol/L (21-28) Arterial Blood Base Excess 2 mmol/L (-3-3) FiO2 100 Urine Collection Type Unknown Urine Color Dk yellow Urine Clarity Cloudy Urine pH 5.0 (<5.0-8.0) Urine Specific [place] 1.025 (1.000-1.030) Urine Protein 100 mg/dL (NEG-TRACE) Urine Glucose (UA) Negative mg/dL (NEG) Urine Ketones (Stick) Trace mg/dL (NEG) Urine Blood Large (NEG) Urine Nitrite Negative (NEG) Urine Bilirubin Small (NEG) Urine Urobilinogen Dipstick 1.0 mg/dL (0.2 mg/dL) Urine Leukocyte Esterase Small (NEG) Urine RBC >40 /HPF (0-2) Urine WBC 1-4 /HPF (0-4) Urine Squamous Epithelial Cells Occ /LPF Urine Bacteria Few /HPF (0-FEW) Laboratory Tests Test 07/17/19 04:29 07/17/19 05:10 07/17/19 05:13 07/17/19 05:39 White Blood Count 16.0 x10^3/uL (4.0-11.0) Red Blood Count 5.83 x10^6/uL (4.30-5.70) Hemoglobin 16.9 g/dL (13.0-17.5) Hematocrit 52.8 % (39.0-53.0) Mean Corpuscular Volume 91 fL (79-100) Mean Corpuscular Hemoglobin 29 pg (25-35) Mean Corpuscular Hemoglobin Concent 32 g/dL (31-37) Red Cell Distribution Width 17.2 % (11.5-14.5) Platelet Count 247 x10^3/uL (140-400) Neutrophils (%) (Auto) 49 % (31-73) Lymphocytes (%) (Auto) 42 % (24-48) Monocytes (%) (Auto) 6 % (0-9) Eosinophils (%) (Auto) 2 % (0-3) Basophils (%) (Auto) 1 % (0-3) Neutrophils # (Auto) 7.9 x10^3/uL (1.8-7.7) Lymphocytes # (Auto) 6.8 x10^3/uL (1.0-4.8) Monocytes # (Auto) 1.0 x10^3/uL (0.0-1.1) Eosinophils # (Auto) 0.3 x10^3/uL (0.0-0.7) Basophils # (Auto) 0.1 x10^3/uL (0.0-0.2) Prothrombin Time 16.0 SEC (11.7-14.0) Prothromb Time International Ratio 1.3 (0.8-1.1) Activated Partial Thromboplast Time 33 SEC (24-38) Lactic Acid Level 8.5 mmol/L (0.4-2.0) Influenza Type A Antigen Negative (NEGATIVE) Influenza Type B Antigen Negative (NEGATIVE) Group A Streptococcus Rapid Negative (NEGATIVE) Sodium Level 145 mmol/L (136-145) Potassium Level 3.9 mmol/L (3.5-5.1) Chloride Level 105 mmol/L (98-107) Carbon Dioxide Level 27 mmol/L (21-32) Anion Gap 13 (6-14) Blood Urea Nitrogen 34 mg/dL (8-26) Creatinine 2.3 mg/dL (0.7-1.3) Estimated GFR (Cockcroft-Gault) 28.0 BUN/Creatinine Ratio 15 (6-20) Glucose Level 296 mg/dL (70-99) Calcium Level 8.2 mg/dL (8.5-10.1) Magnesium Level 1.8 mg/dL (1.8-2.4) Ferritin 325 ng/mL (26-388) Total Bilirubin 0.6 mg/dL (0.2-1.0) Aspartate Amino Transf (AST/SGOT) 31 U/L (15-37) Alanine Aminotransferase (ALT/SGPT) 22 U/L (16-63) Alkaline Phosphatase 124 U/L (46-116) Lactate Dehydrogenase 324 U/L (85-227) Creatine Kinase 83 U/L (39-308) Creatine Kinase MB (Mass) 2.2 ng/mL (0.0-3.6) Creatine Kinase MB Relative Index 2.7 % (0-4) Troponin I Quantitative 0.075 ng/mL (0.000-0.055) PW-Sdt-Z-Type Natriuretic Peptide 69704 pg/mL (0-124) Total Protein 7.1 g/dL (6.4-8.2) Albumin 3.2 g/dL (3.4-5.0) Albumin/Globulin Ratio 0.8 (1.0-1.7) O2 Saturation 84 % (92-99) Arterial Blood pH 7.17 (7.35-7.45) Arterial Blood pCO2 at Patient Temp 63 mmHg (35-46) Arterial Blood pO2 at Patient Temp 61 mmHg (65-108) Arterial Blood HCO3 23 mmol/L (21-28) Arterial Blood Base Excess -8 mmol/L (-3-3) Oxyhemoglobin 83.0 % Methemoglobin 0.4 % (0.0-1.9) Carbon Monoxide, Quantitative 0.3 % (0.0-1.9) FiO2 100 Test 07/17/19 08:45 07/17/19 10:30 07/17/19 13:32 07/17/19 13:34 Lactic Acid Level 3.1 mmol/L (0.4-2.0) Troponin I Quantitative 2.380 ng/mL (0.000-0.055) 3.718 ng/mL (0.000-0.055) O2 Saturation 100 % (92-99) Arterial Blood pH 7.43 (7.35-7.45) Arterial Blood pCO2 at Patient Temp 42 mmHg (35-46) Arterial Blood pO2 at Patient Temp 326 mmHg (65-108) Arterial Blood HCO3 27 mmol/L (21-28) Arterial Blood Base Excess 2 mmol/L (-3-3) FiO2 100 Urine Collection Type Unknown Urine Color Dk yellow Urine Clarity Cloudy Urine pH 5.0 (<5.0-8.0) Urine Specific [place] 1.025 (1.000-1.030) Urine Protein 100 mg/dL (NEG-TRACE) Urine Glucose (UA) Negative mg/dL (NEG) Urine Ketones (Stick) Trace mg/dL (NEG) Urine Blood Large (NEG) Urine Nitrite Negative (NEG) Urine Bilirubin Small (NEG) Urine Urobilinogen Dipstick 1.0 mg/dL (0.2 mg/dL) Urine Leukocyte Esterase Small (NEG) Urine RBC >40 /HPF (0-2) Urine WBC 1-4 /HPF (0-4) Urine Squamous Epithelial Cells Occ /LPF Urine Bacteria Few /HPF (0-FEW) Medications Active Scripts Medications Dose Route/Sig Max Daily Dose Days Date Category Toprol XL (Metoprolol Succinate) 50 Mg Tab.er.24h 50 Mg PO DAILY 06/20/19 Rx Metolazone 2.5 Mg Tablet 2.5 Mg PO QODAY 06/20/19 Rx Furosemide 40 Mg Tablet 40 Mg PO [id number] 06/20/19 Rx Klor-Con M20 (Potassium Chloride) 20 Meq Tab.er.prt 20 Meq PO BIDWMEALS 06/20/19 Rx Amiodarone Hcl 200 Mg Tablet 200 Mg PO DAILY 06/20/19 Rx Eliquis (Apixaban) 5 Mg Tablet 5 Mg PO BID 06/20/19 Rx Acetaminophen 325 Mg Tablet 325 Mg PO Q6HRS 06/13/19 Reported Dicyclomine Hcl 10 Mg Capsule 1 Cap PO PRN TID PRN 05/17/19 Reported Nexium Capsule (Esomeprazole Magnesium) 40 Mg Capsule.dr 40 Mg PO DAILYAC 05/17/19 Reported Oxycodone Hcl Immed.release (Oxycodone Hcl) 15 Mg Tablet 15 Mg PO PRN Q12HR PRN 05/17/19 Reported Alprazolam 1 Mg Tablet 1 Tab PO BID 02/05/17 Reported Impression . Full note dictated, suspect acute on chronic heart failure possibly sepsis possible pneumonia see orders JUAN J CLARK MD July 17, 2019 16:32
[2019-07-17] MEDS: POTASSIUM CHLORIDE 20 MEQ TABLET.ER. PO SCH (16:34)
[2019-07-17] MEDS: PIPERACILLIN/TAZOBACTAM 2.25 GM in IV NORMAL SALINE 50ML 50 ML IV SCH (17:04)
[2019-07-17] MEDS: ALPRAZolam 0.5 MG TABLET FT SCH (20:31)
[2019-07-17] MEDS: APIXABAN 5 MG TABLET. FT SCH (21:00)
[2019-07-17] MEDS ORDERED: HEPARIN for SUB-Q USE 5,000 UNIT/ML VIAL. SQ SCH (21:00)
--- NOTE | 2019-07-17 21:26 | CONS ---
DATE OF CONSULTATION: 07/17/2019 ATTENDING PHYSICIAN: Jimenez No MD CONSULTING PHYSICIAN: Juan J Clark MD REASON FOR CONSULTATION: The patient was seen in pulmonary consultation at the request of Dr. No for respiratory failure, vent management. HISTORY OF PRESENT ILLNESS: The patient is a 74-year-old with a history of CHF, presented with acute onset of shortness of breath morning of admission. He had a cough since the night before. No fever or chills. The information is obtained by reviewing the current documentation reported the patient has cardiomyopathy. He was intubated in the Emergency Room. He is currently on 50% FiO2, 10 of PEEP, requiring norepinephrine. He has been seen in consultation by the Infectious Disease doctor. He is currently on Zosyn. The SARS-CoV-2 is pending. He has been treated for possible pneumonia and sepsis. I was asked to see him in consultation for further evaluation and management. PAST MEDICAL HISTORY: Severe cardiomyopathy, ejection fraction of 10-15%, chronic AFib, chronic kidney disease, chronic systolic heart failure, hypertension, hyperlipidemia, gastroesophageal reflux, cervical spondylosis, irritable bowel syndrome, diverticulitis and colonic polyps. He has had previous cervical laminectomy. PAST SURGICAL HISTORY: Status post cholecystectomy, cervical laminectomy, fistula repair. SOCIAL HISTORY: He is currently not smoking. Lives on his own. FAMILY HISTORY: Noncontributory in this matter. REVIEW OF SYSTEMS: Unobtainable secondary to the patient's condition. ALLERGIES: SULFA, FENTANYL AND VALACYCLOVIR. PHYSICAL EXAMINATION: GENERAL: He was on mechanical ventilation ____ with the ventilator. VITAL SIGNS: He has been afebrile. HEENT: Eyes, the sclerae were nonicteric. NECK: Jugular venous distention could not be assessed secondary to body habitus. CHEST: Full expansion. LUNGS: Anteriorly were clear. CARDIOVASCULAR: Regular rate and rhythm with S1, S2, no S3. ABDOMEN: Obese. EXTREMITIES: Some edema. NEUROLOGIC: The patient was sedated. LABORATORY DATA: White count was 16,000. Initial arterial blood gas; pH of 7.17, PaCO2 of 63 and pO2 of 23. Serology was negative for group A strep and influenza. UA was noted positive for leukocytes, rbc's and wbc's. Chest x-ray was reviewed, bilateral pulmonary infiltrates compatible with CHF, possibly ARDS. IMPRESSION: 1. Acute hypoxemic hypercapnic respiratory failure. 2. Bilateral pulmonary infiltrates, suspect combination of congestive heart failure and pneumonia. 3. Sepsis. 4. SARS-CoV 2, question of suspect. 5. Cardiomyopathy, ejection fraction of 15%. 6. Chronic atrial fibrillation. 7. Chronic kidney disease. 8. Acute on chronic systolic heart failure. 9. Hypotension, requiring pressors, suspect secondary to sepsis. 10. Mild elevation in troponin. 11. Paroxysmal atrial fibrillation with recent cardioversion. PLAN: 1. Continue empiric antibiotics. 2. Continue current settings on mechanical ventilation. 3. Follow Cardiology input. 4. Follow ID input. 5. Follow up on SARS-CoV-2 testing. 6. DVT and GI prophylaxis. 7. Decrease PEEP. I do appreciate the privilege in sharing in the patient's care. Total cumulative critical care time of 60 minutes. The patient was seen during a COVID-19 pandemic. JUAN J CLARK MD DR: KLEBER/sarbjit JOB#: [id number] / [id number]
--- NOTE | 2019-07-17 22:17 | RAD ---
Exam: Chest one view INDICATION: Check endotracheal tube TECHNIQUE: Frontal view of the chest Comparisons: 07/17/2019 FINDINGS: Endotracheal tube with tip approximately 4 cm above the sabi. Left IJ catheter with tip in the SVC. The cardiomediastinal silhouette and pulmonary vessels are within normal limits. Increased opacity at the lung bases. Small bilateral pleural effusions. IMPRESSION: Lines and tubes described above. Exam is otherwise stable. Electronically signed by: Mai Renteria MD (07/17/2019 10:14 PM) [id number]
[2019-07-18] VITALS (44 sets, daily range): BP systolic 79–195; BP diastolic 42–119
[2019-07-18] MEDS: PIPERACILLIN/TAZOBACTAM 2.25 GM in IV NORMAL SALINE 50ML 50 ML IV SCH ×4 (00:25→17:53)
--- NOTE | 2019-07-18 01:13 | NUR ---
Upon arrival to find ETT disconnected from vent. Patient moving and restless. ETT manually stablized. Tube bar loosened but remains intact. RTs at bedside and continued to secure ETT and connected to vent. Adequate breath sounds. Good volumes on vent. Portable ordered to check placement and indicates 4cm above sabi. 24 at teeth. Will continue to monitor.
[2019-07-18] MEDS: DEXMEDETOMIDINE 400 MCG in IV NORMAL SALINE 100ML 96 ML IV PRN ×6 (02:52→20:59)
[2019-07-18] MEDS: MORPHINE SULFATE 4 MG/ML VIAL. IV PRN ×4 (03:19→13:53)
[2019-07-18] MEDS: MIDAZOLAM 100mg/100ml NS BAG 100 ML IV PRN ×2 (05:19→15:59)
[2019-07-18] MEDS: INSULIN LISPRO 300 UNITS/3 ML VIAL. SQ SCH ×4 (05:49→17:53)
[2019-07-18 05:57] LABS: BASO # 0.1 x10^3/uL (0.0-0.2); BASO % 1 % (0-3); EOS % 0 % (0-3); HEMATOCRIT 47.2 % (39.0-53.0); HEMOGLOBIN 15.4 g/dL (13.0-17.5); LYMPH # 1.6 x10^3/uL (1.0-4.8); LYMPH % 21 % (24-48); MEAN CORPUSCULAR HEMOGLOBIN 29 pg (25-35); MEAN CORPUSCULAR HGB CONC 33 g/dL (31-37); MEAN CORPUSCULAR VOLUME 88 fL (79-100); MONO # 0.9 x10^3/uL (0.0-1.1); MONO % 12 % (0-9); NEUT % 65 % (31-73); PLATELET COUNT 129 x10^3/uL (140-400); RED BLOOD COUNT 5.36 x10^6/uL (4.30-5.70); RED CELL DISTRIBUTION WIDTH 16.9 % (11.5-14.5); WHITE BLOOD COUNT 7.6 x10^3/uL (4.0-11.0)
[2019-07-18 06:30] LABS: CALCIUM 8.1 mg/dL (8.5-10.1); CREATININE 3.2 mg/dL (0.7-1.3); GFR 19.1; MAGNESIUM 1.7 mg/dL (1.8-2.4); POTASSIUM 3.9 mmol/L (3.5-5.1)
[2019-07-18] MEDS ORDERED: VANCOMYCIN 1.75 GM in IV NORMAL SALINE 500ML BAG 500 ML IV SCH (06:30)
[2019-07-18 06:32] LABS: CHOLESTEROL/HDL RATIO 5.3
[2019-07-18] MEDS ORDERED: MAGNESIUM SULFATE 2GM 50 ML IV ONE ×2 (07:15→09:45)
--- NOTE | 2019-07-18 07:16 | PDOC ---
Infectious Disease Note Subjective: Subjective intubated/sedated febrile at 100.8 Off pressors Vital Signs: Vital Signs Vital Signs Date Time Temp Pulse Resp B/P (MAP) Pulse Ox O2 Delivery O2 Flow Rate FiO2 07/18/19 06:00 74 22 112/57 (75) 96 Ventilator 07/18/19 04:00 100.3 100.3 07/18/19 03:49 15.0 Physical Exam: PHYSICAL EXAM GENERAL: Intubated, sedated. HEENT: ETT and OG tube in place. NECK: Supple. HEART: S1, S2. ABDOMEN: Soft, bowel sounds present, nontender, nondistended. LUNGS: Clear anteriorly. EXTREMITIES: Trace edema, no cyanosis. DERMATOLOGIC: Warm, dry. No generalized rash. NEUROLOGIC: Intubated, sedated. IJ site looks clean Medications: Inpatient Meds: Current Medications Medications (Trade) Dose Ordered Sig/Chance Start Time Stop Time Status Last Admin Dose Admin Acetaminophen (Tylenol) 650 mg PRN Q6HRS PRN 07/17/19 10:30 Alprazolam (Xanax) 1 mg BID 07/17/19 21:00 Amiodarone HCl (Cordarone) 200 mg DAILY 07/18/19 09:00 Apixaban (Eliquis) 5 mg BID 07/17/19 21:00 Aspirin (Aspirin Rectal Supp) 300 mg 1X ONCE 07/17/19 05:45 07/17/19 05:46 DC 07/17/19 06:01 300 MG Atropine Sulfate (ATROPINE 0.5mg SYRINGE) 0.5 mg PRN Q5MIN PRN 07/17/19 11:00 Bumetanide (Bumex) 1 mg 1X ONCE 07/17/19 06:00 07/17/19 06:01 DC 07/17/19 06:00 1 MG Dexmedetomidine HCl 400 mcg/ Sodium Chloride 100 ml @ 0 mls/hr CONT PRN 07/17/19 11:00 07/18/19 05:19 25.4 MLS/HR Etomidate (Amidate) 20 mg 1X ONCE 07/17/19 04:45 07/17/19 04:46 DC 07/17/19 04:43 20 MG Furosemide (Lasix) 40 mg [id number] 07/17/19 14:00 07/17/19 13:36 40 MG Heparin Sodium (Porcine) (Heparin Sodium) 5,000 unit Q12HR 07/17/19 21:00 07/17/19 10:38 DC Insulin Human Lispro (HumaLOG) 0-6 UNITS Q6HRS 07/17/19 12:00 Lansoprazole (Prevacid) 30 mg DAILY 07/18/19 09:00 Magnesium Hydroxide (Milk Of Magnesia) 2,400 mg PRN DAILY PRN 07/17/19 10:30 Metolazone (Zaroxolyn) 2.5 mg QODAY 07/19/19 09:00 Midazolam HCl 100 ml @ 0 mls/hr CONT PRN 07/17/19 07:15 07/18/19 05:19 10 MLS/HR Morphine Sulfate (Morphine Sulfate) 4 mg PRN Q1HR PRN 07/17/19 11:15 07/18/19 03:19 4 MG Nitroglycerin (Nitrostat) 0.4 mg 1X ONCE 07/17/19 04:30 07/17/19 04:43 DC 07/17/19 04:29 0.4 MG Nitroglycerin/ Dextrose 250 ml @ 0 mls/hr 1X ONCE 07/17/19 04:45 07/17/19 04:46 DC 07/17/19 04:47 1.5 MLS/HR Norepinephrine Bitartrate 8 mg/ Dextrose 258 ml @ 0 mls/hr CONT PRN 07/17/19 06:30 07/17/19 21:52 11 MLS/HR Ondansetron HCl (Zofran) 4 mg PRN Q8HRS PRN 07/17/19 06:00 07/18/19 05:59 DC Piperacillin Sod/ Tazobactam Sod 2.25 gm/Sodium Chloride 50 ml @ 100 mls/hr Q6HRS 07/17/19 18:00 07/18/19 05:48 100 MLS/HR Piperacillin Sod/ Tazobactam Sod 4.5 gm/Sodium Chloride 100 ml @ 200 mls/hr 1X ONCE 07/17/19 06:00 07/17/19 06:29 DC 07/17/19 11:14 200 MLS/HR Potassium Chloride (Klor-Con) 20 meq BIDWMEALS 07/17/19 17:00 07/17/19 16:34 20 MEQ Propofol 100 ml @ 0 mls/hr CONT PRN 07/17/19 05:15 07/17/19 05:45 1.7 MLS/HR Rocuronium Pinnacle (Zemuron) 50 mg 1X ONCE 07/17/19 04:45 07/17/19 04:46 DC 07/17/19 04:44 50 MG Sodium Chloride 500 ml @ 500 mls/hr 1X PRN PRN 07/17/19 11:00 Vancomycin HCl (Vanco Per Pharmacy) 1 each PRN DAILY PRN 07/17/19 06:00 07/17/19 10:41 DC 07/17/19 06:43 1 EACH Vancomycin HCl (Vancomycin Trough Level) 1 each 1X ONCE 07/19/19 06:00 07/19/19 06:01 Cancel Vancomycin HCl 1.75 gm/Sodium Chloride 500 ml @ 250 mls/hr Q24H 07/18/19 06:30 07/17/19 10:38 DC Vancomycin HCl 2 gm/Sodium Chloride 500 ml @ 250 mls/hr 1X ONCE 07/17/19 06:00 07/17/19 07:59 DC 07/17/19 06:15 250 MLS/HR Labs: Lab Laboratory Tests Test 07/17/19 08:45 07/17/19 10:30 07/17/19 13:32 07/17/19 13:34 Lactic Acid Level 3.1 mmol/L (0.4-2.0) Troponin I Quantitative 2.380 ng/mL (0.000-0.055) 3.718 ng/mL (0.000-0.055) O2 Saturation 100 % (92-99) Arterial Blood pH 7.43 (7.35-7.45) Arterial Blood pCO2 at Patient Temp 42 mmHg (35-46) Arterial Blood pO2 at Patient Temp 326 mmHg (65-108) Arterial Blood HCO3 27 mmol/L (21-28) Arterial Blood Base Excess 2 mmol/L (-3-3) FiO2 100 Urine Collection Type Unknown Urine Color Dk yellow Urine Clarity Cloudy Urine pH 5.0 (<5.0-8.0) Urine Specific [place] 1.025 (1.000-1.030) Urine Protein 100 mg/dL (NEG-TRACE) Urine Glucose (UA) Negative mg/dL (NEG) Urine Ketones (Stick) Trace mg/dL (NEG) Urine Blood Large (NEG) Urine Nitrite Negative (NEG) Urine Bilirubin Small (NEG) Urine Urobilinogen Dipstick 1.0 mg/dL (0.2 mg/dL) Urine Leukocyte Esterase Small (NEG) Urine RBC >40 /HPF (0-2) Urine WBC 1-4 /HPF (0-4) Urine Squamous Epithelial Cells Occ /LPF Urine Bacteria Few /HPF (0-FEW) Test 07/17/19 17:00 07/18/19 00:43 07/18/19 05:15 07/18/19 05:30 Glucose (Fingerstick) 128 mg/dL (70-99) 125 mg/dL (70-99) 151 mg/dL (70-99) White Blood Count 7.6 x10^3/uL (4.0-11.0) Red Blood Count 5.36 x10^6/uL (4.30-5.70) Hemoglobin 15.4 g/dL (13.0-17.5) Hematocrit 47.2 % (39.0-53.0) Mean Corpuscular Volume 88 fL (79-100) Mean Corpuscular Hemoglobin 29 pg (25-35) Mean Corpuscular Hemoglobin Concent 33 g/dL (31-37) Red Cell Distribution Width 16.9 % (11.5-14.5) Platelet Count 129 x10^3/uL (140-400) Neutrophils (%) (Auto) 65 % (31-73) Lymphocytes (%) (Auto) 21 % (24-48) Monocytes (%) (Auto) 12 % (0-9) Eosinophils (%) (Auto) 0 % (0-3) Basophils (%) (Auto) 1 % (0-3) Neutrophils # (Auto) 5.0 x10^3/uL (1.8-7.7) Lymphocytes # (Auto) 1.6 x10^3/uL (1.0-4.8) Monocytes # (Auto) 0.9 x10^3/uL (0.0-1.1) Eosinophils # (Auto) 0.0 x10^3/uL (0.0-0.7) Basophils # (Auto) 0.1 x10^3/uL (0.0-0.2) Sodium Level 148 mmol/L (136-145) Potassium Level 3.9 mmol/L (3.5-5.1) Chloride Level 109 mmol/L (98-107) Carbon Dioxide Level 29 mmol/L (21-32) Anion Gap 10 (6-14) Blood Urea Nitrogen 50 mg/dL (8-26) Creatinine 3.2 mg/dL (0.7-1.3) Estimated GFR (Cockcroft-Gault) 19.1 Glucose Level 145 mg/dL (70-99) Calcium Level 8.1 mg/dL (8.5-10.1) Magnesium Level 1.7 mg/dL (1.8-2.4) Triglycerides Level 245 mg/dL (0-150) Cholesterol Level 168 mg/dL (0-200) LDL Cholesterol, Calculated 87 mg/dL (0-100) VLDL Cholesterol, Calculated 49 mg/dL (0-40) Non-HDL Cholesterol Calculated 136 mg/dL (0-129) HDL Cholesterol 32 mg/dL (40-60) Cholesterol/HDL Ratio 5.3 Objective: Assessment: 1. Sepsis. 2. Leukocytosis. 3. Lactic acidosis. 4. Acute hypoxic respiratory failure, status post intubation. Bilateral pulmonary infiltrates 5. Congestive heart failure. 6. Cardiomyopathy. 7. DONTAE on Chronic kidney disease. 8. Gastroesophageal reflux disease. 9. On amiodarone. Plan: Plan of Care Continues Zosyn Start Zyvox Status post 1 dose of vancomycin f/u cult and labs in am cont supportive care Critically ill d/w MARGRET Smith MD July 18, 2019 07:16
[2019-07-18] MEDS: ALPRAZolam 0.5 MG TABLET FT SCH ×2 (07:45→20:30)
[2019-07-18] MEDS: AMIODARONE HCL 200 MG TABLET. PO SCH (07:45)
[2019-07-18] MEDS: LANSOPRAZOLE 30 MG TAB.RAP.DR FT SCH (07:45)
[2019-07-18] MEDS: POTASSIUM CHLORIDE 20 MEQ TABLET.ER. PO SCH (07:45)
[2019-07-18] MEDS: APIXABAN 5 MG TABLET. FT SCH ×2 (07:45→17:19)
[2019-07-18] MEDS: MILRINONE 20MG/100ML PREMIX 100 ML IV PRN (08:00)
[2019-07-18] MEDS: FUROSEMIDE 40 MG/4 ML VIAL. IVP SCH ×2 (08:03→14:00)
--- NOTE | 2019-07-18 08:21 | PDOC ---
PULMONARY PROGRESS NOTES Subjective Patient intubated, sedated. This morning's events noted Vitals Vital Signs Date Time Temp Pulse Resp B/P (MAP) Pulse Ox O2 Delivery O2 Flow Rate FiO2 07/18/19 06:00 74 22 112/57 (75) 96 Ventilator 07/18/19 04:00 100.3 100.3 07/18/19 03:49 15.0 Comments Visual exam, patient in sync with mechanical ventilation. No significant edema noted. HEENT: Other Labs Laboratory Tests Test 07/17/19 04:29 07/17/19 05:10 07/17/19 05:13 07/17/19 05:39 White Blood Count 16.0 x10^3/uL (4.0-11.0) Red Blood Count 5.83 x10^6/uL (4.30-5.70) Hemoglobin 16.9 g/dL (13.0-17.5) Hematocrit 52.8 % (39.0-53.0) Mean Corpuscular Volume 91 fL (79-100) Mean Corpuscular Hemoglobin 29 pg (25-35) Mean Corpuscular Hemoglobin Concent 32 g/dL (31-37) Red Cell Distribution Width 17.2 % (11.5-14.5) Platelet Count 247 x10^3/uL (140-400) Neutrophils (%) (Auto) 49 % (31-73) Lymphocytes (%) (Auto) 42 % (24-48) Monocytes (%) (Auto) 6 % (0-9) Eosinophils (%) (Auto) 2 % (0-3) Basophils (%) (Auto) 1 % (0-3) Neutrophils # (Auto) 7.9 x10^3/uL (1.8-7.7) Lymphocytes # (Auto) 6.8 x10^3/uL (1.0-4.8) Monocytes # (Auto) 1.0 x10^3/uL (0.0-1.1) Eosinophils # (Auto) 0.3 x10^3/uL (0.0-0.7) Basophils # (Auto) 0.1 x10^3/uL (0.0-0.2) Prothrombin Time 16.0 SEC (11.7-14.0) Prothromb Time International Ratio 1.3 (0.8-1.1) Activated Partial Thromboplast Time 33 SEC (24-38) Lactic Acid Level 8.5 mmol/L (0.4-2.0) Influenza Type A Antigen Negative (NEGATIVE) Influenza Type B Antigen Negative (NEGATIVE) Group A Streptococcus Rapid Negative (NEGATIVE) Sodium Level 145 mmol/L (136-145) Potassium Level 3.9 mmol/L (3.5-5.1) Chloride Level 105 mmol/L (98-107) Carbon Dioxide Level 27 mmol/L (21-32) Anion Gap 13 (6-14) Blood Urea Nitrogen 34 mg/dL (8-26) Creatinine 2.3 mg/dL (0.7-1.3) Estimated GFR (Cockcroft-Gault) 28.0 BUN/Creatinine Ratio 15 (6-20) Glucose Level 296 mg/dL (70-99) Calcium Level 8.2 mg/dL (8.5-10.1) Magnesium Level 1.8 mg/dL (1.8-2.4) Ferritin 325 ng/mL (26-388) Total Bilirubin 0.6 mg/dL (0.2-1.0) Aspartate Amino Transf (AST/SGOT) 31 U/L (15-37) Alanine Aminotransferase (ALT/SGPT) 22 U/L (16-63) Alkaline Phosphatase 124 U/L (46-116) Lactate Dehydrogenase 324 U/L (85-227) Creatine Kinase 83 U/L (39-308) Creatine Kinase MB (Mass) 2.2 ng/mL (0.0-3.6) Creatine Kinase MB Relative Index 2.7 % (0-4) Troponin I Quantitative 0.075 ng/mL (0.000-0.055) MO-[id number]-[id number]-Type Natriuretic Peptide 44800 pg/mL (0-124) Total Protein 7.1 g/dL (6.4-8.2) Albumin 3.2 g/dL (3.4-5.0) Albumin/Globulin Ratio 0.8 (1.0-1.7) O2 Saturation 84 % (92-99) Arterial Blood pH 7.17 (7.35-7.45) Arterial Blood pCO2 at Patient Temp 63 mmHg (35-46) Arterial Blood pO2 at Patient Temp 61 mmHg (65-108) Arterial Blood HCO3 23 mmol/L (21-28) Arterial Blood Base Excess -8 mmol/L (-3-3) Oxyhemoglobin 83.0 % Methemoglobin 0.4 % (0.0-1.9) Carbon Monoxide, Quantitative 0.3 % (0.0-1.9) FiO2 100 Test 07/17/19 08:45 07/17/19 10:30 07/17/19 13:32 07/17/19 13:34 Lactic Acid Level 3.1 mmol/L (0.4-2.0) Troponin I Quantitative 2.380 ng/mL (0.000-0.055) 3.718 ng/mL (0.000-0.055) O2 Saturation 100 % (92-99) Arterial Blood pH 7.43 (7.35-7.45) Arterial Blood pCO2 at Patient Temp 42 mmHg (35-46) Arterial Blood pO2 at Patient Temp 326 mmHg (65-108) Arterial Blood HCO3 27 mmol/L (21-28) Arterial Blood Base Excess 2 mmol/L (-3-3) FiO2 100 Urine Collection Type Unknown Urine Color Dk yellow Urine Clarity Cloudy Urine pH 5.0 (<5.0-8.0) Urine Specific [place] 1.025 (1.000-1.030) Urine Protein 100 mg/dL (NEG-TRACE) Urine Glucose (UA) Negative mg/dL (NEG) Urine Ketones (Stick) Trace mg/dL (NEG) Urine Blood Large (NEG) Urine Nitrite Negative (NEG) Urine Bilirubin Small (NEG) Urine Urobilinogen Dipstick 1.0 mg/dL (0.2 mg/dL) Urine Leukocyte Esterase Small (NEG) Urine RBC >40 /HPF (0-2) Urine WBC 1-4 /HPF (0-4) Urine Squamous Epithelial Cells Occ /LPF Urine Bacteria Few /HPF (0-FEW) Test 07/17/19 17:00 07/18/19 00:43 07/18/19 05:15 07/18/19 05:30 Glucose (Fingerstick) 128 mg/dL (70-99) 125 mg/dL (70-99) 151 mg/dL (70-99) White Blood Count 7.6 x10^3/uL (4.0-11.0) Red Blood Count 5.36 x10^6/uL (4.30-5.70) Hemoglobin 15.4 g/dL (13.0-17.5) Hematocrit 47.2 % (39.0-53.0) Mean Corpuscular Volume 88 fL (79-100) Mean Corpuscular Hemoglobin 29 pg (25-35) Mean Corpuscular Hemoglobin Concent 33 g/dL (31-37) Red Cell Distribution Width 16.9 % (11.5-14.5) Platelet Count 129 x10^3/uL (140-400) Neutrophils (%) (Auto) 65 % (31-73) Lymphocytes (%) (Auto) 21 % (24-48) Monocytes (%) (Auto) 12 % (0-9) Eosinophils (%) (Auto) 0 % (0-3) Basophils (%) (Auto) 1 % (0-3) Neutrophils # (Auto) 5.0 x10^3/uL (1.8-7.7) Lymphocytes # (Auto) 1.6 x10^3/uL (1.0-4.8) Monocytes # (Auto) 0.9 x10^3/uL (0.0-1.1) Eosinophils # (Auto) 0.0 x10^3/uL (0.0-0.7) Basophils # (Auto) 0.1 x10^3/uL (0.0-0.2) Sodium Level 148 mmol/L (136-145) Potassium Level 3.9 mmol/L (3.5-5.1) Chloride Level 109 mmol/L (98-107) Carbon Dioxide Level 29 mmol/L (21-32) Anion Gap 10 (6-14) Blood Urea Nitrogen 50 mg/dL (8-26) Creatinine 3.2 mg/dL (0.7-1.3) Estimated GFR (Cockcroft-Gault) 19.1 Glucose Level 145 mg/dL (70-99) Calcium Level 8.1 mg/dL (8.5-10.1) Magnesium Level 1.7 mg/dL (1.8-2.4) Troponin I Quantitative 2.554 ng/mL (0.000-0.055) Triglycerides Level 245 mg/dL (0-150) Cholesterol Level 168 mg/dL (0-200) LDL Cholesterol, Calculated 87 mg/dL (0-100) VLDL Cholesterol, Calculated 49 mg/dL (0-40) Non-HDL Cholesterol Calculated 136 mg/dL (0-129) HDL Cholesterol 32 mg/dL (40-60) Cholesterol/HDL Ratio 5.3 Procalcitonin 2.54 ng/mL (0.00-0.10) Laboratory Tests Test 07/17/19 08:45 07/17/19 10:30 07/17/19 13:32 07/17/19 13:34 Lactic Acid Level 3.1 mmol/L (0.4-2.0) Troponin I Quantitative 2.380 ng/mL (0.000-0.055) 3.718 ng/mL (0.000-0.055) O2 Saturation 100 % (92-99) Arterial Blood pH 7.43 (7.35-7.45) Arterial Blood pCO2 at Patient Temp 42 mmHg (35-46) Arterial Blood pO2 at Patient Temp 326 mmHg (65-108) Arterial Blood HCO3 27 mmol/L (21-28) Arterial Blood Base Excess 2 mmol/L (-3-3) FiO2 100 Urine Collection Type Unknown Urine Color Dk yellow Urine Clarity Cloudy Urine pH 5.0 (<5.0-8.0) Urine Specific [place] 1.025 (1.000-1.030) Urine Protein 100 mg/dL (NEG-TRACE) Urine Glucose (UA) Negative mg/dL (NEG) Urine Ketones (Stick) Trace mg/dL (NEG) Urine Blood Large (NEG) Urine Nitrite Negative (NEG) Urine Bilirubin Small (NEG) Urine Urobilinogen Dipstick 1.0 mg/dL (0.2 mg/dL) Urine Leukocyte Esterase Small (NEG) Urine RBC >40 /HPF (0-2) Urine WBC 1-4 /HPF (0-4) Urine Squamous Epithelial Cells Occ /LPF Urine Bacteria Few /HPF (0-FEW) Test 07/17/19 17:00 07/18/19 00:43 07/18/19 05:15 07/18/19 05:30 Glucose (Fingerstick) 128 mg/dL (70-99) 125 mg/dL (70-99) 151 mg/dL (70-99) White Blood Count 7.6 x10^3/uL (4.0-11.0) Red Blood Count 5.36 x10^6/uL (4.30-5.70) Hemoglobin 15.4 g/dL (13.0-17.5) Hematocrit 47.2 % (39.0-53.0) Mean Corpuscular Volume 88 fL (79-100) Mean Corpuscular Hemoglobin 29 pg (25-35) Mean Corpuscular Hemoglobin Concent 33 g/dL (31-37) Red Cell Distribution Width 16.9 % (11.5-14.5) Platelet Count 129 x10^3/uL (140-400) Neutrophils (%) (Auto) 65 % (31-73) Lymphocytes (%) (Auto) 21 % (24-48) Monocytes (%) (Auto) 12 % (0-9) Eosinophils (%) (Auto) 0 % (0-3) Basophils (%) (Auto) 1 % (0-3) Neutrophils # (Auto) 5.0 x10^3/uL (1.8-7.7) Lymphocytes # (Auto) 1.6 x10^3/uL (1.0-4.8) Monocytes # (Auto) 0.9 x10^3/uL (0.0-1.1) Eosinophils # (Auto) 0.0 x10^3/uL (0.0-0.7) Basophils # (Auto) 0.1 x10^3/uL (0.0-0.2) Sodium Level 148 mmol/L (136-145) Potassium Level 3.9 mmol/L (3.5-5.1) Chloride Level 109 mmol/L (98-107) Carbon Dioxide Level 29 mmol/L (21-32) Anion Gap 10 (6-14) Blood Urea Nitrogen 50 mg/dL (8-26) Creatinine 3.2 mg/dL (0.7-1.3) Estimated GFR (Cockcroft-Gault) 19.1 Glucose Level 145 mg/dL (70-99) Calcium Level 8.1 mg/dL (8.5-10.1) Magnesium Level 1.7 mg/dL (1.8-2.4) Troponin I Quantitative 2.554 ng/mL (0.000-0.055) Triglycerides Level 245 mg/dL (0-150) Cholesterol Level 168 mg/dL (0-200) LDL Cholesterol, Calculated 87 mg/dL (0-100) VLDL Cholesterol, Calculated 49 mg/dL (0-40) Non-HDL Cholesterol Calculated 136 mg/dL (0-129) HDL Cholesterol 32 mg/dL (40-60) Cholesterol/HDL Ratio 5.3 Procalcitonin 2.54 ng/mL (0.00-0.10) Medications Active Scripts Medications Dose Route/Sig Max Daily Dose Days Date Category Toprol XL (Metoprolol Succinate) 50 Mg Tab.er.24h 50 Mg PO DAILY 06/20/19 Rx Metolazone 2.5 Mg Tablet 2.5 Mg PO QODAY 06/20/19 Rx Furosemide 40 Mg Tablet 40 Mg PO [id number] 06/20/19 Rx Klor-Con M20 (Potassium Chloride) 20 Meq Tab.er.prt 20 Meq PO BIDWMEALS 06/20/19 Rx Amiodarone Hcl 200 Mg Tablet 200 Mg PO DAILY 06/20/19 Rx Eliquis (Apixaban) 5 Mg Tablet 5 Mg PO BID 06/20/19 Rx Acetaminophen 325 Mg Tablet 325 Mg PO Q6HRS 06/13/19 Reported Dicyclomine Hcl 10 Mg Capsule 1 Cap PO PRN TID PRN 05/17/19 Reported Nexium Capsule (Esomeprazole Magnesium) 40 Mg Capsule.dr 40 Mg PO DAILYAC 05/17/19 Reported Oxycodone Hcl Immed.release (Oxycodone Hcl) 15 Mg Tablet 15 Mg PO PRN Q12HR PRN 05/17/19 Reported Alprazolam 1 Mg Tablet 1 Tab PO BID 02/05/17 Reported Impression . IMPRESSION: 1. Acute hypoxemic hypercapnic respiratory failure. 2. Bilateral pulmonary infiltrates, suspect combination of congestive heart failure and pneumonia. 3. Sepsis. 4. SARS-CoV 2, question of suspect. 5. Cardiomyopathy, ejection fraction of 15%. 6. Chronic atrial fibrillation. 7. Chronic kidney disease. 8. Acute on chronic systolic heart failure. 9. Hypotension, requiring pressors, suspect secondary to sepsis. 10. Mild elevation in troponin. 11. Paroxysmal atrial fibrillation with recent cardioversion. 12. Status post CODE BLUE secondary to V. tach Plan . Patient to undergo cardiac catheterization today Patient had V. tach this morning, ACLS protocol followed. Given magnesium, shocked x1. Case discussed with RN Continue empiric antibiotics ABG noted Follow cardiology input SARS-CoV-2 testing pending GI DVT prophylaxis Total cumulative critical care time of 30 minminutes. The patient was seen during a COVID-19 pandemic. JUAN J CLARK MD July 18, 2019 08:21
[2019-07-18 08:22] LABS: BASE EXCESS ABG 7 mmol/L (-3-3); HCO3 ABG 29 mmol/L (21-28); PCO2 ABG 32 mmHg (35-46); PO2 ABG 75 mmHg (65-108); SAT O2 ABG 95 % (92-99)
[2019-07-18 08:31] LABS: FIO2 ABG 40%+8
--- NOTE | 2019-07-18 08:34 | RAD ---
PORTABLE CHEST 1V Clinical History: CHF Technique: AP view of the chest was obtained at 07/18/2019 5:00 AM. Comparison: July 17, 2019. Findings: The cardiomediastinal silhouette is normal. The pulmonary vasculature is normal. There is patchy perihilar opacities. This appears mildly worse. The endotracheal tube NG tube and left jugular line are unchanged. Impression: Bilateral infiltrates appears slightly worse. Electronically signed by: Merlin Couch III, MD (07/18/2019 8:31 AM) [id number]
[2019-07-18 09:02] LABS: BASO # 0.2 x10^3/uL (0.0-0.2); BASO % 1 % (0-3); EOS % 0 % (0-3); HEMATOCRIT 52.6 % (39.0-53.0); HEMOGLOBIN 17.1 g/dL (13.0-17.5); LYMPH # 6.6 x10^3/uL (1.0-4.8); LYMPH % 45 % (24-48); MEAN CORPUSCULAR HEMOGLOBIN 29 pg (25-35); MEAN CORPUSCULAR HGB CONC 33 g/dL (31-37); MEAN CORPUSCULAR VOLUME 89 fL (79-100); MONO # 0.4 x10^3/uL (0.0-1.1); MONO % 3 % (0-9); NEUT # 7.5 x10^3/uL (1.8-7.7); NEUT % 51 % (31-73); PLATELET COUNT 156 x10^3/uL (140-400); RED BLOOD COUNT 5.88 x10^6/uL (4.30-5.70); WHITE BLOOD COUNT 14.7 x10^3/uL (4.0-11.0)
--- NOTE | 2019-07-18 09:08 | PDOC ---
SUBJECTIVE ROS s/p VT arrest this morning. OBJECTIVE Vital Signs Vital Signs Date Time Temp Pulse Resp B/P (MAP) Pulse Ox O2 Delivery O2 Flow Rate FiO2 07/18/19 08:43 96 Ventilator 07/18/19 06:00 74 22 112/57 (75) 07/18/19 04:00 100.3 100.3 07/18/19 03:49 15.0 I & 0 Intake and Output 07/18/19 07:00 Intake Total 2081.1 ml Output Total 1720 ml Balance 361.1 ml Intake IV Total 1581.1 ml Tube Feeding 500 ml Output Urine Total 720 ml Gastric Drainage Total 1000 ml PHYSICAL EXAM Physical Exam GEN Intubated on MV HEENT: Intubated NECK: supple HEART: S1, S2. LUNGS: decreased breath sounds at base. ABDOMEN: Obese and soft, nontender. EXTREMITIES: Lower extremities with 2+ edema bilaterally. SKIN: No rashes. NEUROLOGIC: grossly normal Antunez + DIAGNOSIS/ASSESSMENT Assessment & Plan DONTAE - worsening renal function ATN/Cardiorenal / Diuretics/Pneumonia CKD stage 3/4 Hospitalized in May with Cr 2.1 -2.4- new baseline vs DONTAE DONTAE in May 2019 with Cr of 2.5 - Cardiorenal HyperNatremia- Mild HypoMg- replacing Acute on chronic respiratory failure with a/c CHF/Pneumonia ; intubated Acute on chronic systolic CHF- per Cardiology Severe cardiomyopathy; LVEF 10-15% per echo 06/12/19. Cath was deferred due to renal failure Leukocytosis, lactic acidosis COVID Pending Shock; requiring pressor support PAFIB s/p recent CV COMMENT/RELEVANT DATA Meds Current Medications Medications (Trade) Dose Ordered Sig/Chance Start Time Stop Time Status Last Admin Dose Admin Acetaminophen (Tylenol) 650 mg PRN Q6HRS PRN 07/17/19 10:30 Alprazolam (Xanax) 1 mg BID 07/17/19 21:00 Amiodarone HCl (Cordarone) 200 mg DAILY 07/18/19 09:00 Apixaban (Eliquis) 5 mg BID 07/17/19 21:00 Aspirin (Aspirin Rectal Supp) 300 mg 1X ONCE 07/17/19 05:45 07/17/19 05:46 DC 07/17/19 06:01 300 MG Atropine Sulfate (ATROPINE 0.5mg SYRINGE) 0.5 mg PRN Q5MIN PRN 07/17/19 11:00 Bumetanide (Bumex) 1 mg 1X ONCE 07/17/19 06:00 07/17/19 06:01 DC 07/17/19 06:00 1 MG Dexmedetomidine HCl 400 mcg/ Sodium Chloride 100 ml @ 0 mls/hr CONT PRN 07/17/19 11:00 07/18/19 05:19 25.4 MLS/HR Etomidate (Amidate) 20 mg 1X ONCE 07/17/19 04:45 07/17/19 04:46 DC 07/17/19 04:43 20 MG Furosemide (Lasix) 40 mg [id number] 07/17/19 14:00 07/18/19 08:03 40 MG Heparin Sodium (Porcine) (Heparin Sodium) 5,000 unit Q12HR 07/17/19 21:00 07/17/19 10:38 DC Info (Anti-Coagulation Monitoring By Pharmacy) 1 each PRN DAILY PRN 07/18/19 08:00 Insulin Human Lispro (HumaLOG) 0-6 UNITS Q6HRS 07/17/19 12:00 Lansoprazole (Prevacid) 30 mg DAILY 07/18/19 09:00 Linezolid/Dextrose 300 ml @ 300 mls/hr Q12HR 07/18/19 09:00 07/18/19 08:09 300 MLS/HR Magnesium Hydroxide (Milk Of Magnesia) 2,400 mg PRN DAILY PRN 07/17/19 10:30 Magnesium Sulfate 50 ml @ 25 mls/hr 1X ONCE 07/18/19 07:15 07/18/19 09:14 07/18/19 08:04 25 MLS/HR Metolazone (Zaroxolyn) 2.5 mg QODAY 07/19/19 09:00 Midazolam HCl 100 ml @ 0 mls/hr CONT PRN 07/17/19 07:15 07/18/19 05:19 10 MLS/HR Milrinone Lactate/ Dextrose 100 ml @ 0 mls/hr CONT PRN 07/18/19 07:15 07/18/19 08:00 4.2 MLS/HR Morphine Sulfate (Morphine Sulfate) 4 mg PRN Q1HR PRN 07/17/19 11:15 07/18/19 08:43 4 MG Nitroglycerin (Nitrostat) 0.4 mg 1X ONCE 07/17/19 04:30 07/17/19 04:43 DC 07/17/19 04:29 0.4 MG Nitroglycerin/ Dextrose 250 ml @ 0 mls/hr 1X ONCE 07/17/19 04:45 07/17/19 04:46 DC 07/17/19 04:47 1.5 MLS/HR Norepinephrine Bitartrate 8 mg/ Dextrose 258 ml @ 0 mls/hr CONT PRN 07/17/19 06:30 07/17/19 21:52 11 MLS/HR Ondansetron HCl (Zofran) 4 mg PRN Q8HRS PRN 07/17/19 06:00 07/18/19 05:59 DC Piperacillin Sod/ Tazobactam Sod 2.25 gm/Sodium Chloride 50 ml @ 100 mls/hr Q6HRS 07/17/19 18:00 07/18/19 05:48 100 MLS/HR Piperacillin Sod/ Tazobactam Sod 4.5 gm/Sodium Chloride 100 ml @ 200 mls/hr 1X ONCE 07/17/19 06:00 07/17/19 06:29 DC 07/17/19 11:14 200 MLS/HR Potassium Chloride (Klor-Con) 20 meq BIDWMEALS 07/17/19 17:00 07/17/19 16:34 20 MEQ Propofol 100 ml @ 0 mls/hr CONT PRN 07/17/19 05:15 07/17/19 05:45 1.7 MLS/HR Rocuronium Keenes (Zemuron) 50 mg 1X ONCE 07/17/19 04:45 07/17/19 04:46 DC 07/17/19 04:44 50 MG Sodium Chloride 500 ml @ 500 mls/hr 1X PRN PRN 07/17/19 11:00 Vancomycin HCl (Vanco Per Pharmacy) 1 each PRN DAILY PRN 07/17/19 06:00 07/17/19 10:41 DC 07/17/19 06:43 1 EACH Vancomycin HCl (Vancomycin Trough Level) 1 each 1X ONCE 07/19/19 06:00 07/19/19 06:01 Cancel Vancomycin HCl 1.75 gm/Sodium Chloride 500 ml @ 250 mls/hr Q24H 07/18/19 06:30 5/18/20 10:38 DC Vancomycin HCl 2 gm/Sodium Chloride 500 ml @ 250 mls/hr 1X ONCE 07/17/19 06:00 07/17/19 07:59 DC 07/17/19 06:15 250 MLS/HR Lab Laboratory Tests Test 07/17/19 10:30 07/17/19 13:32 07/17/19 13:34 07/17/19 17:00 O2 Saturation 100 % (92-99) Arterial Blood pH 7.43 (7.35-7.45) Arterial Blood pCO2 at Patient Temp 42 mmHg (35-46) Arterial Blood pO2 at Patient Temp 326 mmHg (65-108) Arterial Blood HCO3 27 mmol/L (21-28) Arterial Blood Base Excess 2 mmol/L (-3-3) FiO2 100 Urine Collection Type Unknown Urine Color Dk yellow Urine Clarity Cloudy Urine pH 5.0 (<5.0-8.0) Urine Specific [place] 1.025 (1.000-1.030) Urine Protein 100 mg/dL (NEG-TRACE) Urine Glucose (UA) Negative mg/dL (NEG) Urine Ketones (Stick) Trace mg/dL (NEG) Urine Blood Large (NEG) Urine Nitrite Negative (NEG) Urine Bilirubin Small (NEG) Urine Urobilinogen Dipstick 1.0 mg/dL (0.2 mg/dL) Urine Leukocyte Esterase Small (NEG) Urine RBC >40 /HPF (0-2) Urine WBC 1-4 /HPF (0-4) Urine Squamous Epithelial Cells Occ /LPF Urine Bacteria Few /HPF (0-FEW) Troponin I Quantitative 3.718 ng/mL (0.000-0.055) Glucose (Fingerstick) 128 mg/dL (70-99) Test 07/18/19 00:43 07/18/19 05:15 07/18/19 05:30 07/18/19 08:00 Glucose (Fingerstick) 125 mg/dL (70-99) 151 mg/dL (70-99) White Blood Count 7.6 x10^3/uL (4.0-11.0) Red Blood Count 5.36 x10^6/uL (4.30-5.70) Hemoglobin 15.4 g/dL (13.0-17.5) Hematocrit 47.2 % (39.0-53.0) Mean Corpuscular Volume 88 fL (79-100) Mean Corpuscular Hemoglobin 29 pg (25-35) Mean Corpuscular Hemoglobin Concent 33 g/dL (31-37) Red Cell Distribution Width 16.9 % (11.5-14.5) Platelet Count 129 x10^3/uL (140-400) Neutrophils (%) (Auto) 65 % (31-73) Lymphocytes (%) (Auto) 21 % (24-48) Monocytes (%) (Auto) 12 % (0-9) Eosinophils (%) (Auto) 0 % (0-3) Basophils (%) (Auto) 1 % (0-3) Neutrophils # (Auto) 5.0 x10^3/uL (1.8-7.7) Lymphocytes # (Auto) 1.6 x10^3/uL (1.0-4.8) Monocytes # (Auto) 0.9 x10^3/uL (0.0-1.1) Eosinophils # (Auto) 0.0 x10^3/uL (0.0-0.7) Basophils # (Auto) 0.1 x10^3/uL (0.0-0.2) Sodium Level 148 mmol/L (136-145) Potassium Level 3.9 mmol/L (3.5-5.1) Chloride Level 109 mmol/L (98-107) Carbon Dioxide Level 29 mmol/L (21-32) Anion Gap 10 (6-14) Blood Urea Nitrogen 50 mg/dL (8-26) Creatinine 3.2 mg/dL (0.7-1.3) Estimated GFR (Cockcroft-Gault) 19.1 Glucose Level 145 mg/dL (70-99) Calcium Level 8.1 mg/dL (8.5-10.1) Magnesium Level 1.7 mg/dL (1.8-2.4) Troponin I Quantitative 2.554 ng/mL (0.000-0.055) Triglycerides Level 245 mg/dL (0-150) Cholesterol Level 168 mg/dL (0-200) LDL Cholesterol, Calculated 87 mg/dL (0-100) VLDL Cholesterol, Calculated 49 mg/dL (0-40) Non-HDL Cholesterol Calculated 136 mg/dL (0-129) HDL Cholesterol 32 mg/dL (40-60) Cholesterol/HDL Ratio 5.3 Procalcitonin 2.54 ng/mL (0.00-0.10) O2 Saturation 95 % (92-99) Arterial Blood pH 7.58 (7.35-7.45) Arterial Blood pCO2 at Patient Temp 32 mmHg (35-46) Arterial Blood pO2 at Patient Temp 75 mmHg (65-108) Arterial Blood HCO3 29 mmol/L (21-28) Arterial Blood Base Excess 7 mmol/L (-3-3) FiO2 40%+8 Results All relevant outside records, renal labs, imaging studies, telemetry/EKG's were reviewed. GYPSY COLEMAN MD July 18, 2019 09:08
[2019-07-18 09:11] LABS: ALBUMIN 2.6 g/dL (3.4-5.0); ALBUMIN/GLOBULIN RATIO 0.8 (1.0-1.7); CALCIUM 7.9 mg/dL (8.5-10.1); CREATININE 3.3 mg/dL (0.7-1.3); GFR 18.5; POTASSIUM 3.4 mmol/L (3.5-5.1); TOTAL BILIRUBIN 1.1 mg/dL (0.2-1.0)
[2019-07-18] MEDS ORDERED: VECURONIUM BOLUS 10 MG VIAL. IV ONE ×3 (09:12→13:49)
--- NOTE | 2019-07-18 09:16 | NUR ---
SS following up with discharge planning. SS discussed with RNSabina. Pt is currently on the vent and Full Code. 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 Pt COVID19 test pending. SS will continue to follow for discharge planning.
[2019-07-18] MEDS ORDERED: POTASSIUM CHLORIDE 20MEQ 100 ML IV ONE (09:45)
--- NOTE | 2019-07-18 10:01 | PDOC ---
Provider Note Provider Note s/p VT arrest this morning. s/p Epi x2 and Amio 300mg bolus. 1 shock delivered. ROSC achieved. 2Gm Mg administered. Will order K and additional Mg and plan for C to evaluate for obstructive coronary disease. Awaiting COVID testing. DEVIN GLOVER APRN July 18, 2019 10:01
--- NOTE | 2019-07-18 10:26 | NUR ---
Dr. Barrera called unit at 0730 checking on patient, notified of magnesium of 1.7, orders received to replace 2 g magnesium and start milrinone gtt at 0.125 mcg/kg not titrating and to plan for a tentative cardiac cath for 12:30. At 0824, patient heart rhythm changed from sinus rhythm to torsades, RN at bedside initiated code blue and chest compressions, see code blue sheet. Dr. Barrera notified of code blue, orders received at bedside. All other physicians aware of code blue. Levophed restarted for hypotension, arterial line placed by Dr. Narvaez. Patient's primary electrical contacts adjuster, Jason Garcia, notified of code blue and plans to proceed with cardiac cath, consent given via telephone to two nurses.
--- NOTE | 2019-07-18 10:44 | PDOC ---
PROGRESS NOTES Subjective Subjective had VT cardiac arrest earlier today and resuscitated. presently on levophed and intubated. lab reviewed. mg 1.7 and potassium 3.4 and repleted. cxr with bilateral lung infiltrates with normal pulmonary vascular. Objective Objective Vital Signs Date Time Temp Pulse Resp B/P (MAP) Pulse Ox O2 Delivery O2 Flow Rate FiO2 07/18/19 09:41 97 Ventilator 07/18/19 09:00 99.4 124 21 106/57 (73) 99.4 07/18/19 03:49 15.0 Intake and Output 07/18/19 07:00 Intake Total 2081.1 ml Output Total 1720 ml Balance 361.1 ml Intake IV Total 1581.1 ml Tube Feeding 500 ml Output Urine Total 720 ml Gastric Drainage Total 1000 ml Physical Exam Abdomen: Soft Heart: Normal S1, Normal S2 Extremities: No edema General: Other (on ventilator ) HEENT: Atraumatic Lungs: Clear to auscultation, Other (clear anteriorly) Neuro: Other (sedated) Psych/Mental Status: Other (sedated) Skin: No rashes Assessment Assessment Problems1. Acute pulmonary edema. compensated 2. Acute on chronic systolic congestive heart failure. 3. Severe cardiomyopathy with left ventricular ejection fraction 10-15%. 4. Acute hypoxic and hypercarbic respiratory failure, on the ventilator. 5. Paroxysmal atrial fibrillation, 6. Cardiogenic shock, maintained on pressor 7. Chronic kidney disease stage 3. 8. Gastroesophageal reflux disease. 9. Leukocytosis bilateral lung infiltrates hypernatremia hypokalemia hypomagnesemia VT cardiac arrest 07/17 Medical Problems: (1) Acute exacerbation of CHF (congestive heart failure) Status: Acute (2) Acute on chronic renal insufficiency Status: Acute (3) Elevated troponin I level Status: Acute (4) Septic shock Status: Acute (5) Suspected COVID-19 virus infection Status: Acute Plan Plan of Care continue ventilator support and pressors cardiac cath today may need hemodialysis repleted kcl and magnesium continue iv zyvox and zosyn d/c metolazone continue iv lasix increase water flushes to OGT Comment Review of Relevant I have reviewed the following items juan (where applicable) has been applied. Labs Laboratory Tests Test 07/17/19 04:29 07/17/19 05:10 07/17/19 05:13 07/17/19 05:39 White Blood Count 16.0 x10^3/uL (4.0-11.0) Red Blood Count 5.83 x10^6/uL (4.30-5.70) Hemoglobin 16.9 g/dL (13.0-17.5) Hematocrit 52.8 % (39.0-53.0) Mean Corpuscular Volume 91 fL (79-100) Mean Corpuscular Hemoglobin 29 pg (25-35) Mean Corpuscular Hemoglobin Concent 32 g/dL (31-37) Red Cell Distribution Width 17.2 % (11.5-14.5) Platelet Count 247 x10^3/uL (140-400) Neutrophils (%) (Auto) 49 % (31-73) Lymphocytes (%) (Auto) 42 % (24-48) Monocytes (%) (Auto) 6 % (0-9) Eosinophils (%) (Auto) 2 % (0-3) Basophils (%) (Auto) 1 % (0-3) Neutrophils # (Auto) 7.9 x10^3/uL (1.8-7.7) Lymphocytes # (Auto) 6.8 x10^3/uL (1.0-4.8) Monocytes # (Auto) 1.0 x10^3/uL (0.0-1.1) Eosinophils # (Auto) 0.3 x10^3/uL (0.0-0.7) Basophils # (Auto) 0.1 x10^3/uL (0.0-0.2) Prothrombin Time 16.0 SEC (11.7-14.0) Prothromb Time International Ratio 1.3 (0.8-1.1) Activated Partial Thromboplast Time 33 SEC (24-38) Lactic Acid Level 8.5 mmol/L (0.4-2.0) Influenza Type A Antigen Negative (NEGATIVE) Influenza Type B Antigen Negative (NEGATIVE) Group A Streptococcus Rapid Negative (NEGATIVE) Sodium Level 145 mmol/L (136-145) Potassium Level 3.9 mmol/L (3.5-5.1) Chloride Level 105 mmol/L (98-107) Carbon Dioxide Level 27 mmol/L (21-32) Anion Gap 13 (6-14) Blood Urea Nitrogen 34 mg/dL (8-26) Creatinine 2.3 mg/dL (0.7-1.3) Estimated GFR (Cockcroft-Gault) 28.0 BUN/Creatinine Ratio 15 (6-20) Glucose Level 296 mg/dL (70-99) Calcium Level 8.2 mg/dL (8.5-10.1) Magnesium Level 1.8 mg/dL (1.8-2.4) Ferritin 325 ng/mL (26-388) Total Bilirubin 0.6 mg/dL (0.2-1.0) Aspartate Amino Transf (AST/SGOT) 31 U/L (15-37) Alanine Aminotransferase (ALT/SGPT) 22 U/L (16-63) Alkaline Phosphatase 124 U/L (46-116) Lactate Dehydrogenase 324 U/L (85-227) Creatine Kinase 83 U/L (39-308) Creatine Kinase MB (Mass) 2.2 ng/mL (0.0-3.6) Creatine Kinase MB Relative Index 2.7 % (0-4) Troponin I Quantitative 0.075 ng/mL (0.000-0.055) [place]-Iwc-A-Type Natriuretic Peptide 10502 pg/mL (0-124) Total Protein 7.1 g/dL (6.4-8.2) Albumin 3.2 g/dL (3.4-5.0) Albumin/Globulin Ratio 0.8 (1.0-1.7) O2 Saturation 84 % (92-99) Arterial Blood pH 7.17 (7.35-7.45) Arterial Blood pCO2 at Patient Temp 63 mmHg (35-46) Arterial Blood pO2 at Patient Temp 61 mmHg (65-108) Arterial Blood HCO3 23 mmol/L (21-28) Arterial Blood Base Excess -8 mmol/L (-3-3) Oxyhemoglobin 83.0 % Methemoglobin 0.4 % (0.0-1.9) Carbon Monoxide, Quantitative 0.3 % (0.0-1.9) FiO2 100 Test 07/17/19 08:45 07/17/19 10:30 07/17/19 13:32 07/17/19 13:34 Lactic Acid Level 3.1 mmol/L (0.4-2.0) Troponin I Quantitative 2.380 ng/mL (0.000-0.055) 3.718 ng/mL (0.000-0.055) O2 Saturation 100 % (92-99) Arterial Blood pH 7.43 (7.35-7.45) Arterial Blood pCO2 at Patient Temp 42 mmHg (35-46) Arterial Blood pO2 at Patient Temp 326 mmHg (65-108) Arterial Blood HCO3 27 mmol/L (21-28) Arterial Blood Base Excess 2 mmol/L (-3-3) FiO2 100 Urine Collection Type Unknown Urine Color Dk yellow Urine Clarity Cloudy Urine pH 5.0 (<5.0-8.0) Urine Specific [place] 1.025 (1.000-1.030) Urine Protein 100 mg/dL (NEG-TRACE) Urine Glucose (UA) Negative mg/dL (NEG) Urine Ketones (Stick) Trace mg/dL (NEG) Urine Blood Large (NEG) Urine Nitrite Negative (NEG) Urine Bilirubin Small (NEG) Urine Urobilinogen Dipstick 1.0 mg/dL (0.2 mg/dL) Urine Leukocyte Esterase Small (NEG) Urine RBC >40 /HPF (0-2) Urine WBC 1-4 /HPF (0-4) Urine Squamous Epithelial Cells Occ /LPF Urine Bacteria Few /HPF (0-FEW) Test 07/17/19 17:00 07/18/19 00:43 07/18/19 05:15 07/18/19 05:30 Glucose (Fingerstick) 128 mg/dL (70-99) 125 mg/dL (70-99) 151 mg/dL (70-99) White Blood Count 7.6 x10^3/uL (4.0-11.0) Red Blood Count 5.36 x10^6/uL (4.30-5.70) Hemoglobin 15.4 g/dL (13.0-17.5) Hematocrit 47.2 % (39.0-53.0) Mean Corpuscular Volume 88 fL (79-100) Mean Corpuscular Hemoglobin 29 pg (25-35) Mean Corpuscular Hemoglobin Concent 33 g/dL (31-37) Red Cell Distribution Width 16.9 % (11.5-14.5) Platelet Count 129 x10^3/uL (140-400) Neutrophils (%) (Auto) 65 % (31-73) Lymphocytes (%) (Auto) 21 % (24-48) Monocytes (%) (Auto) 12 % (0-9) Eosinophils (%) (Auto) 0 % (0-3) Basophils (%) (Auto) 1 % (0-3) Neutrophils # (Auto) 5.0 x10^3/uL (1.8-7.7) Lymphocytes # (Auto) 1.6 x10^3/uL (1.0-4.8) Monocytes # (Auto) 0.9 x10^3/uL (0.0-1.1) Eosinophils # (Auto) 0.0 x10^3/uL (0.0-0.7) Basophils # (Auto) 0.1 x10^3/uL (0.0-0.2) Sodium Level 148 mmol/L (136-145) Potassium Level 3.9 mmol/L (3.5-5.1) Chloride Level 109 mmol/L (98-107) Carbon Dioxide Level 29 mmol/L (21-32) Anion Gap 10 (6-14) Blood Urea Nitrogen 50 mg/dL (8-26) Creatinine 3.2 mg/dL (0.7-1.3) Estimated GFR (Cockcroft-Gault) 19.1 Glucose Level 145 mg/dL (70-99) Calcium Level 8.1 mg/dL (8.5-10.1) Magnesium Level 1.7 mg/dL (1.8-2.4) Troponin I Quantitative 2.554 ng/mL (0.000-0.055) Triglycerides Level 245 mg/dL (0-150) Cholesterol Level 168 mg/dL (0-200) LDL Cholesterol, Calculated 87 mg/dL (0-100) VLDL Cholesterol, Calculated 49 mg/dL (0-40) Non-HDL Cholesterol Calculated 136 mg/dL (0-129) HDL Cholesterol 32 mg/dL (40-60) Cholesterol/HDL Ratio 5.3 Procalcitonin 2.54 ng/mL (0.00-0.10) Test 07/18/19 08:00 07/18/19 08:45 O2 Saturation 95 % (92-99) Arterial Blood pH 7.58 (7.35-7.45) Arterial Blood pCO2 at Patient Temp 32 mmHg (35-46) Arterial Blood pO2 at Patient Temp 75 mmHg (65-108) Arterial Blood HCO3 29 mmol/L (21-28) Arterial Blood Base Excess 7 mmol/L (-3-3) FiO2 40%+8 White Blood Count 14.7 x10^3/uL (4.0-11.0) Red Blood Count 5.88 x10^6/uL (4.30-5.70) Hemoglobin 17.1 g/dL (13.0-17.5) Hematocrit 52.6 % (39.0-53.0) Mean Corpuscular Volume 89 fL (79-100) Mean Corpuscular Hemoglobin 29 pg (25-35) Mean Corpuscular Hemoglobin Concent 33 g/dL (31-37) Red Cell Distribution Width 17.0 % (11.5-14.5) Platelet Count 156 x10^3/uL (140-400) Neutrophils (%) (Auto) 51 % (31-73) Lymphocytes (%) (Auto) 45 % (24-48) Monocytes (%) (Auto) 3 % (0-9) Eosinophils (%) (Auto) 0 % (0-3) Basophils (%) (Auto) 1 % (0-3) Neutrophils # (Auto) 7.5 x10^3/uL (1.8-7.7) Lymphocytes # (Auto) 6.6 x10^3/uL (1.0-4.8) Monocytes # (Auto) 0.4 x10^3/uL (0.0-1.1) Eosinophils # (Auto) 0.0 x10^3/uL (0.0-0.7) Basophils # (Auto) 0.2 x10^3/uL (0.0-0.2) Sodium Level 150 mmol/L (136-145) Potassium Level 3.4 mmol/L (3.5-5.1) Chloride Level 108 mmol/L (98-107) Carbon Dioxide Level 29 mmol/L (21-32) Anion Gap 13 (6-14) Blood Urea Nitrogen 51 mg/dL (8-26) Creatinine 3.3 mg/dL (0.7-1.3) Estimated GFR (Cockcroft-Gault) 18.5 BUN/Creatinine Ratio 15 (6-20) Glucose Level 220 mg/dL (70-99) Calcium Level 7.9 mg/dL (8.5-10.1) Total Bilirubin 1.1 mg/dL (0.2-1.0) Aspartate Amino Transf (AST/SGOT) 34 U/L (15-37) Alanine Aminotransferase (ALT/SGPT) 20 U/L (16-63) Alkaline Phosphatase 88 U/L (46-116) Total Protein 6.0 g/dL (6.4-8.2) Albumin 2.6 g/dL (3.4-5.0) Albumin/Globulin Ratio 0.8 (1.0-1.7) Laboratory Tests Test 07/17/19 13:32 07/17/19 13:34 07/17/19 17:00 07/18/19 00:43 Urine Collection Type Unknown Urine Color Dk yellow Urine Clarity Cloudy Urine pH 5.0 (<5.0-8.0) Urine Specific [place] 1.025 (1.000-1.030) Urine Protein 100 mg/dL (NEG-TRACE) Urine Glucose (UA) Negative mg/dL (NEG) Urine Ketones (Stick) Trace mg/dL (NEG) Urine Blood Large (NEG) Urine Nitrite Negative (NEG) Urine Bilirubin Small (NEG) Urine Urobilinogen Dipstick 1.0 mg/dL (0.2 mg/dL) Urine Leukocyte Esterase Small (NEG) Urine RBC >40 /HPF (0-2) Urine WBC 1-4 /HPF (0-4) Urine Squamous Epithelial Cells Occ /LPF Urine Bacteria Few /HPF (0-FEW) Troponin I Quantitative 3.718 ng/mL (0.000-0.055) Glucose (Fingerstick) 128 mg/dL (70-99) 125 mg/dL (70-99) Test 07/18/19 05:15 07/18/19 05:30 07/18/19 08:00 07/18/19 08:45 White Blood Count 7.6 x10^3/uL (4.0-11.0) 14.7 x10^3/uL (4.0-11.0) Red Blood Count 5.36 x10^6/uL (4.30-5.70) 5.88 x10^6/uL (4.30-5.70) Hemoglobin 15.4 g/dL (13.0-17.5) 17.1 g/dL (13.0-17.5) Hematocrit 47.2 % (39.0-53.0) 52.6 % (39.0-53.0) Mean Corpuscular Volume 88 fL (79-100) 89 fL (79-100) Mean Corpuscular Hemoglobin 29 pg (25-35) 29 pg (25-35) Mean Corpuscular Hemoglobin Concent 33 g/dL (31-37) 33 g/dL (31-37) Red Cell Distribution Width 16.9 % (11.5-14.5) 17.0 % (11.5-14.5) Platelet Count 129 x10^3/uL (140-400) 156 x10^3/uL (140-400) Neutrophils (%) (Auto) 65 % (31-73) 51 % (31-73) Lymphocytes (%) (Auto) 21 % (24-48) 45 % (24-48) Monocytes (%) (Auto) 12 % (0-9) 3 % (0-9) Eosinophils (%) (Auto) 0 % (0-3) 0 % (0-3) Basophils (%) (Auto) 1 % (0-3) 1 % (0-3) Neutrophils # (Auto) 5.0 x10^3/uL (1.8-7.7) 7.5 x10^3/uL (1.8-7.7) Lymphocytes # (Auto) 1.6 x10^3/uL (1.0-4.8) 6.6 x10^3/uL (1.0-4.8) Monocytes # (Auto) 0.9 x10^3/uL (0.0-1.1) 0.4 x10^3/uL (0.0-1.1) Eosinophils # (Auto) 0.0 x10^3/uL (0.0-0.7) 0.0 x10^3/uL (0.0-0.7) Basophils # (Auto) 0.1 x10^3/uL (0.0-0.2) 0.2 x10^3/uL (0.0-0.2) Sodium Level 148 mmol/L (136-145) 150 mmol/L (136-145) Potassium Level 3.9 mmol/L (3.5-5.1) 3.4 mmol/L (3.5-5.1) Chloride Level 109 mmol/L (98-107) 108 mmol/L (98-107) Carbon Dioxide Level 29 mmol/L (21-32) 29 mmol/L (21-32) Anion Gap 10 (6-14) 13 (6-14) Blood Urea Nitrogen 50 mg/dL (8-26) 51 mg/dL (8-26) Creatinine 3.2 mg/dL (0.7-1.3) 3.3 mg/dL (0.7-1.3) Estimated GFR (Cockcroft-Gault) 19.1 18.5 Glucose Level 145 mg/dL (70-99) 220 mg/dL (70-99) Calcium Level 8.1 mg/dL (8.5-10.1) 7.9 mg/dL (8.5-10.1) Magnesium Level 1.7 mg/dL (1.8-2.4) Troponin I Quantitative 2.554 ng/mL (0.000-0.055) Triglycerides Level 245 mg/dL (0-150) Cholesterol Level 168 mg/dL (0-200) LDL Cholesterol, Calculated 87 mg/dL (0-100) VLDL Cholesterol, Calculated 49 mg/dL (0-40) Non-HDL Cholesterol Calculated 136 mg/dL (0-129) HDL Cholesterol 32 mg/dL (40-60) Cholesterol/HDL Ratio 5.3 Procalcitonin 2.54 ng/mL (0.00-0.10) Glucose (Fingerstick) 151 mg/dL (70-99) O2 Saturation 95 % (92-99) Arterial Blood pH 7.58 (7.35-7.45) Arterial Blood pCO2 at Patient Temp 32 mmHg (35-46) Arterial Blood pO2 at Patient Temp 75 mmHg (65-108) Arterial Blood HCO3 29 mmol/L (21-28) Arterial Blood Base Excess 7 mmol/L (-3-3) FiO2 40%+8 BUN/Creatinine Ratio 15 (6-20) Total Bilirubin 1.1 mg/dL (0.2-1.0) Aspartate Amino Transf (AST/SGOT) 34 U/L (15-37) Alanine Aminotransferase (ALT/SGPT) 20 U/L (16-63) Alkaline Phosphatase 88 U/L (46-116) Total Protein 6.0 g/dL (6.4-8.2) Albumin 2.6 g/dL (3.4-5.0) Albumin/Globulin Ratio 0.8 (1.0-1.7) Microbiology 07/17/19 Blood Culture - Preliminary, Resulted NO GROWTH AFTER 1 DAY Medications Current Medications Nitroglycerin (Nitrostat) 0.4 mg STK-MED ONCE SL ; Start 07/17/19 at 04:28; Stop 07/17/19 at 04:28; Status DC Nitroglycerin (Nitrostat) 0.4 mg 1X ONCE SL Last administered on 07/17/19at 04:29; Start 07/17/19 at 04:30; Stop 07/17/19 at 04:43; Status DC Nitroglycerin/ Dextrose 250 ml @ 0 mls/hr 1X ONCE IV Last administered on 07/17/19at 04:47; Start 07/17/19 at 04:45; Stop 07/17/19 at 04:46; Status DC Rocuronium [place] (Zemuron) 50 mg 1X ONCE IV Last administered on 07/17/19at 04:44; Start 07/17/19 at 04:45; Stop 07/17/19 at 04:46; Status DC Etomidate (Amidate) 20 mg 1X ONCE IV Last administered on 07/17/19at 04:43; Start 07/17/19 at 04:45; Stop 07/17/19 at 04:46; Status DC Propofol 100 ml @ 0 mls/hr CONT PRN IV SEE PROTOCOL Last administered on 07/17/19at 05:45; Start 07/17/19 at 05:15 Aspirin (Aspirin Rectal Supp) [address] Last administered on 07/17/19at 06:01; Start 07/17/19 at 05:45; Stop 07/17/19 at 05:46; Status DC Bumetanide (Bumex) 1 mg 1X ONCE IV Last administered on 07/17/19at 06:00; Start 07/17/19 at 06:00; Stop 07/17/19 at 06:01; Status DC Piperacillin Sod/ Tazobactam Sod 4.5 gm/Sodium Chloride 100 ml @ 200 mls/hr 1X ONCE IV Last administered on 07/17/19at 11:14; Start 07/17/19 at 06:00; Stop 07/17/19 at 06:29; Status DC Vancomycin HCl (Vanco Per Pharmacy) 1 each PRN DAILY PRN MC SEE COMMENTS Last administered on 07/17/19at 06:43; Start 07/17/19 at 06:00; Stop 07/17/19 at 10:41; Status DC Vancomycin HCl 2 gm/Sodium Chloride 500 ml @ 250 mls/hr 1X ONCE IV Last administered on 07/17/19at 06:15; Start 07/17/19 at 06:00; Stop 07/17/19 at 07:59; Status DC Ondansetron HCl (Zofran) 4 mg PRN Q8HRS PRN IV NAUSEA/VOMITING; Start 07/17/19 at 06:00; Stop 07/18/19 at 05:59; Status DC Norepinephrine Bitartrate 8 mg/ Dextrose 258 ml @ 0 mls/hr CONT PRN IV SEE I/O RECORD Last administered on 07/17/19at 21:52; Start 07/17/19 at 06:30 Vancomycin HCl 1.75 gm/Sodium Chloride 500 ml @ 250 mls/hr Q24H IV ; Start 07/18/19 at 06:30; Stop 07/17/19 at 10:38; Status DC Vancomycin HCl (Vancomycin Trough Level) 1 each 1X ONCE MC ; Start 07/19/19 at 06:00; Stop 07/19/19 at 06:01; Status Cancel Morphine Sulfate (Morphine Sulfate) 6 mg 1X ONCE IV Last administered on 07/17/19at 07:08; Start 07/17/19 at 07:15; Stop 07/17/19 at 07:16; Status DC Midazolam HCl 100 ml @ 0 mls/hr CONT PRN IV SEE PROTOCOL Last administered on 07/18/19at 05:19; Start 07/17/19 at 07:15 Morphine Sulfate (Morphine Sulfate) 4 mg PRN Q1HR PRN IV SEE COMMENTS.; Start 07/17/19 at 08:00; Stop 07/17/19 at 10:38; Status DC Heparin Sodium (Porcine) (Heparin Sodium) 5,000 unit Q12HR SQ ; Start 07/17/19 at 21:00; Stop 07/17/19 at 10:38; Status DC Amiodarone HCl (Cordarone) 200 mg DAILY PO ; Start 07/18/19 at 09:00 Metolazone (Zaroxolyn) 2.5 mg QODAY PO ; Start 07/19/19 at 09:00; Stop 07/18/19 at 10:36; Status DC Potassium Chloride (Klor-Con) 20 meq BIDWMEALS PO Last administered on 07/17/19at 16:34; Start 07/17/19 at 17:00; Stop 07/18/19 at 10:36; Status DC Furosemide (Lasix) 40 mg [id number] IVP Last administered on 07/18/19at 08:03; Start 07/17/19 at 14:00 Morphine Sulfate (Morphine Sulfate) 2 mg PRN Q4HRS PRN IV SEE COMMENTS.; Start 07/17/19 at 10:30; Status Cancel Apixaban (Eliquis) 5 mg BID FT ; Start 07/17/19 at 21:00 Insulin Human Lispro (HumaLOG) 0-6 UNITS Q6HRS SQ ; Start 07/17/19 at 12:00 Lansoprazole (Prevacid) 30 mg DAILY FT ; Start 07/18/19 at 09:00 Acetaminophen (Tylenol) 650 mg PRN Q6HRS PRN FT MILD PAIN / TEMP > 100.3'F; Start 07/17/19 at 10:30 Alprazolam (Xanax) 1 mg BID FT ; Start 07/17/19 at 21:00 Magnesium Hydroxide (Milk Of Magnesia) 2,400 mg PRN DAILY PRN FT CONSTIPATION; Start 07/17/19 at 10:30 Dexmedetomidine HCl 400 mcg/ Sodium Chloride 100 ml @ 0 mls/hr CONT PRN IV PER PROTOCOL Last administered on 07/18/19at 09:33; Start 07/17/19 at 11:00 Sodium Chloride 500 ml @ 500 mls/hr 1X PRN PRN IV SEE COMMENTS; Start 07/17/19 at 11:00 Atropine Sulfate (ATROPINE 0.5mg SYRINGE) 0.5 mg PRN Q5MIN PRN IV SEE COMMENTS; Start 07/17/19 at 11:00 Morphine Sulfate (Morphine Sulfate) 2 mg PRN Q1HR PRN IV SEE COMMENTS. Last administered on 07/17/19at 13:37; Start 07/17/19 at 11:15 Morphine Sulfate (Morphine Sulfate) 4 mg PRN Q1HR PRN IV SEE COMMENTS. Last administered on 07/18/19at 08:43; Start 07/17/19 at 11:15 Piperacillin Sod/ Tazobactam Sod 2.25 gm/Sodium Chloride 50 ml @ 100 mls/hr Q6HRS IV Last administered on 07/18/19at 05:48; Start 07/17/19 at 18:00 Magnesium Sulfate 50 ml @ 25 mls/hr 1X ONCE IV Last administered on 07/18/19at 08:04; Start 07/18/19 at 07:15; Stop 07/18/19 at 09:14; Status DC Milrinone Lactate/ Dextrose 100 ml @ 0 mls/hr CONT PRN IV SEE I/O RECORD Last administered on 07/18/19at 08:00; Start 07/18/19 at 07:15 Linezolid/Dextrose 300 ml @ 300 mls/hr Q12HR IV Last administered on 07/18/19at 08:09; Start 07/18/19 at 09:00 Info (Anti-Coagulation Monitoring By Pharmacy) 1 each PRN DAILY PRN MC SEE COMMENTS; Start 07/18/19 at 08:00 Vecuronium [place] (Norcuron Bolus) 10 mg STK-MED ONCE IV ; Start 07/18/19 at 09:12; Stop 07/18/19 at 09:12; Status DC Potassium Chloride/Water 100 ml @ 100 mls/hr 1X ONCE IV Last administered on 07/18/19at 10:04; Start 07/18/19 at 09:45; Stop 07/18/19 at 10:44 Magnesium Sulfate 50 ml @ 25 mls/hr 1X ONCE IV Last administered on 07/18/19at 10:03; Start 07/18/19 at 09:45; Stop 07/18/19 at 11:44 Active Scripts Active Toprol XL (Metoprolol Succinate) 50 Mg Tab.er.24h 50 Mg PO DAILY Metolazone 2.5 Mg Tablet 2.5 Mg PO QODAY Furosemide 40 Mg Tablet 40 Mg PO [id number] Klor-Con M20 (Potassium Chloride) 20 Meq Tab.er.prt 20 Meq PO BIDWMEALS Amiodarone Hcl 200 Mg Tablet 200 Mg PO DAILY Eliquis (Apixaban) 5 Mg Tablet 5 Mg PO BID Reported Acetaminophen 325 Mg Tablet 325 Mg PO Q6HRS Dicyclomine Hcl 10 Mg Capsule 1 Cap PO PRN TID PRN Nexium Capsule (Esomeprazole Magnesium) 40 Mg Capsule.dr 40 Mg PO DAILYAC Oxycodone Hcl Immed.release (Oxycodone Hcl) 15 Mg Tablet 15 Mg PO PRN Q12HR PRN Alprazolam 1 Mg Tablet 1 Tab PO BID Vitals/I & O Vital Sign - Last 24 Hours 07/17/19 07/17/19 07/17/19 07/17/19 11:00 11:00 12:00 12:00 Temp 98.9 98.9 Pulse 70 65 Resp 24 24 B/P (MAP) 112/67 (82) 107/66 (80) Pulse Ox 100 100 100 O2 Delivery Ventilator Ventilator Ventilator Mechanical Ventilator 07/17/19 07/17/19 07/17/19 07/17/19 13:00 13:37 14:00 14:07 Pulse 66 66 Resp 24 24 B/P (MAP) 161/97 (118) 135/75 (95) Pulse Ox 100 100 100 100 O2 Delivery Ventilator Ventilator Ventilator O2 Flow Rate 15.0 15.0 07/17/19 07/17/19 07/17/19 07/17/19 14:55 15:00 16:00 16:00 Temp 97.9 97.9 Pulse 66 66 Resp 24 24 B/P (MAP) 141/67 (91) 103/61 (75) Pulse Ox 98 100 100 O2 Delivery Ventilator Ventilator Mechanical Ventilator Ventilator 07/17/19 07/17/19 07/17/19 07/17/19 17:00 17:53 18:00 19:00 Pulse 67 68 67 68 Resp 24 24 24 22 B/P (MAP) 86/56 (66) 123/72 (89) 124/74 (91) 99/64 (76) Pulse Ox 100 100 100 97 O2 Delivery Ventilator Ventilator Ventilator Ventilator 07/17/19 07/17/19 07/17/19 07/17/19 19:21 20:00 20:00 21:00 Temp 98.4 98.4 Pulse 69 80 Resp 24 24 B/P (MAP) 108/67 (81) 116/68 (84) Pulse Ox 98 97 98 O2 Delivery Ventilator Ventilator Mechanical Ventilator Ventilator 07/17/19 07/17/19 07/17/19 07/18/19 22:00 23:00 23:59 00:01 Temp 100.8 100.8 Pulse 74 69 68 Resp 24 22 22 B/P (MAP) 141/84 (103) 136/70 (92) 113/67 (82) Pulse Ox 40 96 96 O2 Delivery Ventilator Ventilator Mechanical Ventilator Ventilator 07/18/19 07/18/19 07/18/19 07/18/19 00:11 01:00 02:00 03:00 Pulse 68 70 72 Resp 22 22 B/P (MAP) 107/63 (78) 127/65 (85) 116/67 (83) Pulse Ox 98 96 96 96 O2 Delivery Ventilator Ventilator Ventilator Ventilator 07/18/19 07/18/19 07/18/19 07/18/19 03:19 03:49 04:00 04:00 Temp 100.3 100.3 Pulse 74 Resp 22 B/P (MAP) 120/67 (84) Pulse Ox 96 98 94 O2 Delivery Ventilator Mechanical Ventilator Ventilator O2 Flow Rate 15.0 15.0 07/18/19 07/18/19 07/18/19 07/18/19 05:00 05:18 06:00 08:43 Pulse 73 74 Resp 22 22 B/P (MAP) 117/65 (82) 112/57 (75) Pulse Ox 96 98 96 96 O2 Delivery Ventilator Ventilator Ventilator Ventilator 07/18/19 07/18/19 09:00 09:41 Temp 99.4 99.4 Pulse 124 Resp 21 B/P (MAP) 106/57 (73) Pulse Ox 97 97 O2 Delivery Ventilator Ventilator Intake and Output 07/17/19 07/17/19 07/18/19 15:00 23:00 07:00 Intake Total 500 ml 769 ml 812.1 ml Output Total 145 ml 1025 ml 550 ml Balance 355 ml -256 ml 262.1 ml RICK CAROLINA MD July 18, 2019 10:44
[2019-07-18] MEDS ORDERED: LIDOCAINE 1% PF 2 ML VIAL. ONE (13:05)
[2019-07-18] MEDS ORDERED: HEPARIN for ARTERIAL LINE 1,500 ML ONE (13:05)
[2019-07-18] MEDS ORDERED: IODIXANOL 320 MG/ML 100 ML VIAL. ONE (13:05)
[2019-07-18] MEDS: NOREPINEPHRINE VIAL 32 MG in IV DEXTROSE 5% 250 ML IV PRN (13:39)
--- NOTE | 2019-07-18 13:55 | NUR ---
Levophed concentration switched, patient did not tolerate well. Patient's HR dropped from 110s to 80s and BP was 46/30 despite increasing levophed dose. One time dose of epinephrine given. label printer crew at bedside, nurse went to laborer mine with patient.
[2019-07-18] MEDS ORDERED: EPINEPHrine VIAL 5 MG in IV NORMAL SALINE 250ML 250 ML IV PRN (14:00)
[2019-07-18] MEDS ORDERED: VECURONIUM BOLUS 10 MG VIAL. IV PRN (14:00)
[2019-07-18] MEDS ORDERED: LIDOCAINE 1% Multi-Dose 20 ML VIAL. ONE (14:11)
[2019-07-18] MEDS ORDERED: HEPARIN for IV BOLUS 10,000 UNIT/10 ML VIAL. ONE (14:27)
[2019-07-18] MEDS ORDERED: IODIXANOL 320 MG/ML 100 ML VIAL. IART ONE (14:45)
[2019-07-18] MEDS ORDERED: LIDOCAINE 1% Multi-Dose 20 ML VIAL. INJ ONE (14:45)
[2019-07-18] MEDS ORDERED: HEPARIN for IV BOLUS 10,000 UNIT/10 ML VIAL. IV ONE (14:45)
--- NOTE | 2019-07-18 15:44 | EKG ---
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
[2019-07-18] MEDS ORDERED: TICAGRELOR 90 MG TABLET. PO ONE (16:00)
[2019-07-18] MEDS: MORPHINE SULFATE 30 ML IV PRN (16:01)
[2019-07-18] MEDS ORDERED: AMIODARONE 150 MG/3 ML VIAL ONE (16:08)
[2019-07-18] MEDS ORDERED: EPINEPHrine SYRINGE 1 MG/10 ML SYRINGE ONE (16:08)
--- NOTE | 2019-07-18 16:19 | NUR ---
1400 dose of lasix not given per Dr. Barrera.
--- NOTE | 2019-07-18 16:45 | CARD ---
MR#: [id number] Date of Study: 07/18/2019 Ordering Physician: VENU YODER, Referring Physician: VENU YODER, Tech: GRACIELA BATISTA RTR APPROVED REPORT Technologist: GRACIELA BATISTA RTR Nurse: Janki Del Real R.N. Procedure(s) performed: NO MODERATE SEDATION GIVEN FLUORO TIME: 18.7 MIN RHC/LHC/Coronary angiography/PCI of the RCA DOSE: [id number] CONTRAST: 104CC VISI NYHA CLASS: 4 LHC/RHC, Coronary angiography PCI of the RCA INDICATION The indication(s) include : cardiac arrest. [facility] Clinical Frailty Scale [facility] Clinical Frailty Scale: Severely Frail Heart Failure Heart Failure: Yes If Yes, Newly Diagnosed: No If Yes, HF Type: Diastolic Systolic PROCEDURE NARRATIVE Clinical Indication: 74 y.o man with prior history of respiratory failure, treated for PNA approximately 2 months ago, pre sented with decompensated HF and atrial fibrillation 1 month ago. He underwent a BEVERLY/CVN and a RHC in the setting of respiratory failure, acute kidney injury and difficult to control afib with RVR with EF of 20%. He was discharged with plans for outpt ischemic evaluation. He presented with recurrent re spiratory failure requiring intubation and had VT this morning requiring cardioversion. Despite worse tim renal failure, a decision was made to take the patient to the medical lab specialist to rule out ischemic etio logy. Procedure Details After appropriate informed consent the patient was brought to the catheterization laboratory. All pe rsonnel were wearing appropriate personal protective equipment. The bilateral groins were prepped an d draped in usual sterile fashion. Under 2% lidocaine local anesthesia a 6 Lebanese sheath was placed in the right common femoral artery, a 5 Lebanese sheath was placed in the right common femoral vein. N ext, diagnostic angiography was performed with a JL4 and JR4 catheters. LVEDP was obtained with a JR 4 catheter. A 5 Lebanese PA catheter was advanced to the right heart chambers and pressures and satura tions were obtained. Findings: Aorta: 120/80 LVEDP 16 RA: 9 RV: 55/10 PA: 50/25 Pulmonary cavity wedge pressure: 15 PA saturation: 70 on 100% FiO2 Coronary angiography: Left main is a large-caliber vessel with normal angiographic appearance LAD is a large-caliber vessel with a proximal 30% stenosis. Left circumflex is a large-caliber vessel with mild luminal irregularities RCA is a large caliber hyperdominant vessel with a proximal 50%, mid 80% and distal 90% stenoses. RPL is a large caliber vessel with a ostial/proximal 80% stenosis RPDA is a small to moderate caliber vessel with a mid 100% occlusion with robust left to right collat erals from the LAD. Interventional technique: Heparin was used for anticoagulation. The patient was given ticagrelor at case completion. Through a 6 Lebanese AL-1 guide catheter a pro-water wire was initially used to try to cross the mid PDA occlus ion. This was felt to be 100% chronic total occlusion. Therefore the wire was then placed in the di stal RPL. The distal RCA lesion was stented with a 4.5 x 12 mm resolute DARSHAN. The mid RCA lesion was direct stented with a 4.5 x 18 mm resolute DARSHAN. The ostial/proximal RPL was then stented with a 4.0 x 26 mm DARSHAN. All stents were deployed at 14 jose luis. Final angiography demonstrated excellent stent ex pansion with JOSEPH-3 flow in the vessel no evidence of guidewire related complications. The residual 50% proximal RCA stenosis was not intervened upon. JOSEPH Flow JOSEPH Flow (Pre-Intervention): JOSEPH-3 JOSEPH Flow (Post-Intervention): JOSEPH-3 Conclusion 1. Normal biventricular filling pressures. 2. Mild pulmonary HTN 3. Normal cardiac output at 5.1 L/min 4. One vessel coronary disease. 5. Successful PCI of the RCA as described above 6. Patient had one episode of SVT with hypotension requiring synchronized cardioversion to SR. Recommendations ASA 81mg daily Ticagrelor 90mg bid Will restart Eliquis at low dose if stable overnight. His hypotension is likely vasoplegic/septic shock, rather than cardiac in origin as evidenced by his normal cardiac output. Cardiac arrest this morning likely sequalae of electrolyte disturbances. Signed by : Venu Yoder, Electronically Approved : 07/18/2019 16:44:44
--- NOTE | 2019-07-18 17:09 | NUR ---
Patient arrived back in room at 1600 accompanied by geochemical laboratory technician and RT. Patient remains sedated, VSS. Patient has new A/V sheath. Patient's cousin was notified of successful PCI.
--- NOTE | 2019-07-18 21:41 | ED.ADGEN ---
Past Medical History Past Medical History: CHF, Hypertension Past Surgical History: Cholecystectomy Smoking Status: Former Smoker Alcohol Use: Rarely Drug Use: None Physician Documentation Physician Documentation Called to ICU arounf 8:15am 07/17 concern for witnessed vfib arrest in a pt with chest pain, low ef-15%, already intubated with trop of approximately 5-pending cath later today. ATLS protocol in progress. Pt with bilateral breath sounds, K 3.7, glucose wnl, recent pH 7.5 (rate increased on vent). Pt with bilateral breath sounds. Amiodarone 300mg IVP given. Sp 2 epi pt developed rosc. Pt with narrow complex tachycardic rhythm (concerning for SVT). Repeat BP wnl. Pending ekg/cxr - I discussed this with admitting attending. Critical care time - 20 minutes. ANAMARIA TOSCANO DO July 18, 2019 21:41
[2019-07-19] VITALS (41 sets, daily range): BP systolic 71–166; BP diastolic 44–94
[2019-07-19] MEDS: DEXMEDETOMIDINE 400 MCG in IV NORMAL SALINE 100ML 96 ML IV PRN ×7 (00:13→22:26)
[2019-07-19] MEDS: PIPERACILLIN/TAZOBACTAM 2.25 GM in IV NORMAL SALINE 50ML 50 ML IV SCH ×4 (00:13→17:28)
[2019-07-19] MEDS: MIDAZOLAM 100mg/100ml NS BAG 100 ML IV PRN ×3 (00:14→22:26)
[2019-07-19 01:08] LABS: HEMOGLOBIN A1C 5.6 % (4.8-5.6)
[2019-07-19] MEDS: MILRINONE 20MG/100ML PREMIX 100 ML IV PRN (03:23)
[2019-07-19] MEDS ORDERED: DIGOXIN IV 500 MCG/2 ML AMPUL. IV ONE ×4 (04:10→09:00)
[2019-07-19] MEDS: INSULIN LISPRO 300 UNITS/3 ML VIAL. SQ SCH ×5 (06:00→23:59)
[2019-07-19 06:49] LABS: BASO # 0.1 x10^3/uL (0.0-0.2); BASO % 1 % (0-3); EOS % 0 % (0-3); HEMATOCRIT 45.8 % (39.0-53.0); HEMOGLOBIN 15.1 g/dL (13.0-17.5); LYMPH # 2.5 x10^3/uL (1.0-4.8); LYMPH % 20 % (24-48); MEAN CORPUSCULAR HEMOGLOBIN 29 pg (25-35); MEAN CORPUSCULAR HGB CONC 33 g/dL (31-37); MEAN CORPUSCULAR VOLUME 88 fL (79-100); MONO # 1.9 x10^3/uL (0.0-1.1); MONO % 15 % (0-9); NEUT # 8.3 x10^3/uL (1.8-7.7); NEUT % 64 % (31-73); PLATELET COUNT 190 x10^3/uL (140-400); RED BLOOD COUNT 5.24 x10^6/uL (4.30-5.70); RED CELL DISTRIBUTION WIDTH 16.7 % (11.5-14.5); WHITE BLOOD COUNT 12.9 x10^3/uL (4.0-11.0)
--- NOTE | 2019-07-19 06:52 | NUR ---
IP: Pt is COVID negative.
[2019-07-19 06:55] LABS: CALCIUM 7.7 mg/dL (8.5-10.1); CREATININE 3.3 mg/dL (0.7-1.3); GFR 18.5; MAGNESIUM 2.1 mg/dL (1.8-2.4); POTASSIUM 3.4 mmol/L (3.5-5.1)
--- NOTE | 2019-07-19 07:18 | NUR ---
At 0400 patient went from SR to afib RVR with rate ranging from 150s-180s. Patient was suctioned and bolused with sedation but no improvement. Decreased Milrinone by half to see if it would affect situation, but did not improve. Dr. Elida trejo, updated on situation. Orders received to turn Milrinone back to 0.125 and give 0.25 mg Digoxin IVP now, repeat in 1 hour, and then repeat in 4 hours. 2 doses of Digoxin given with no improvement in heart rate. Will pass on in report and third dose of Dig to be given at 0900.
--- NOTE | 2019-07-19 07:41 | PDOC ---
Infectious Disease Note Subjective: Subjective intubated/sedated d/w RN s/p VT arrest yesterday am s/p PCI with stent placement per team on levophed COVID neg Vital Signs: Vital Signs Vital Signs Date Time Temp Pulse Resp B/P (MAP) Pulse Ox O2 Delivery O2 Flow Rate FiO2 07/19/19 06:00 162 16 100/68 (79) 100 Ventilator 07/19/19 04:00 98.6 98.6 Physical Exam: PHYSICAL EXAM GENERAL: Intubated, sedated. HEENT: ETT and OG tube in place. NECK: Supple. HEART: S1, S2.Tachy ABDOMEN: Soft, bowel sounds present, nontender, nondistended. jade in place LUNGS: dec bs sounds ,rales EXTREMITIES: Trace edema, no cyanosis. DERMATOLOGIC: Warm, dry. No generalized rash. NEUROLOGIC: Intubated, sedated. IJ site looks clean Medications: Inpatient Meds: Current Medications Medications (Trade) Dose Ordered Sig/Chance Start Time Stop Time Status Last Admin Dose Admin Acetaminophen (Tylenol) 650 mg PRN Q6HRS PRN 07/17/19 10:30 Alprazolam (Xanax) 1 mg BID 07/17/19 21:00 Amiodarone HCl (Cordarone) 200 mg DAILY 07/18/19 09:00 Apixaban (Eliquis) 5 mg BID 07/17/19 21:00 Aspirin (Aspirin Rectal Supp) 300 mg 1X ONCE 07/17/19 05:45 07/17/19 05:46 DC 07/17/19 06:01 300 MG Atropine Sulfate (ATROPINE 0.5mg SYRINGE) 0.5 mg PRN Q5MIN PRN 07/17/19 11:00 Bumetanide (Bumex) 1 mg 1X ONCE 07/17/19 06:00 07/17/19 06:01 DC 07/17/19 06:00 1 MG Dexmedetomidine HCl 400 mcg/ Sodium Chloride 100 ml @ 0 mls/hr CONT PRN 07/17/19 11:00 07/19/19 04:20 25.4 MLS/HR Digoxin (Lanoxin) 250 mcg 1X ONCE 07/19/19 04:10 07/19/19 06:15 DC 07/19/19 04:15 250 MCG Epinephrine HCl 5 mg/Sodium Chloride 255 ml @ 32.926 mls/ hr CONT PRN 07/18/19 14:00 Etomidate (Amidate) 20 mg 1X ONCE 07/17/19 04:45 07/17/19 04:46 DC 07/17/19 04:43 20 MG Furosemide (Lasix) 40 mg [id number] 07/17/19 14:00 07/18/19 08:03 40 MG Heparin Sodium (Porcine) (Heparin Sodium) 7,000 unit 1X ONCE 07/18/19 14:45 07/18/19 14:52 DC 07/18/19 14:45 7,000 UNIT Heparin Sodium/ Sodium Chloride 500 ml @ As Directed STK-MED ONCE 07/18/19 15:11 07/18/19 15:11 DC Heparin Sodium/ Sodium Chloride (HEPARIN for ARTERIAL LINE FLUSH) 1,000 unit 1X ONCE 07/18/19 14:45 07/18/19 14:52 DC 07/18/19 14:45 1,000 UNIT Info (Anti-Coagulation Monitoring By Pharmacy) 1 each PRN DAILY PRN 07/18/19 08:00 Insulin Human Lispro (HumaLOG) 0-6 UNITS Q6HRS 07/17/19 12:00 Iodixanol (Visipaque 320) 100 ml 1X ONCE 07/18/19 14:45 07/18/19 14:52 DC 07/18/19 14:45 104 ML Lansoprazole (Prevacid) 30 mg DAILY 07/18/19 09:00 Lidocaine HCl (Lidocaine 1% 20ml Vial) 20 ml 1X ONCE 07/18/19 14:45 07/18/19 14:52 DC 07/18/19 14:45 10 ML Lidocaine HCl (Xylocaine-Mpf 1% 2ml Vial) 2 ml STK-MED ONCE 07/18/19 13:05 07/18/19 13:05 DC Linezolid/Dextrose 300 ml @ 300 mls/hr Q12HR 07/18/19 09:00 07/18/19 20:30 300 MLS/HR Magnesium Hydroxide (Milk Of Magnesia) 2,400 mg PRN DAILY PRN 07/17/19 10:30 Magnesium Sulfate 50 ml @ 25 mls/hr 1X ONCE 07/18/19 09:45 07/18/19 11:44 DC 07/18/19 10:03 25 MLS/HR Metolazone (Zaroxolyn) 2.5 mg QODAY 07/19/19 09:00 07/18/19 10:36 DC Midazolam HCl 100 ml @ 0 mls/hr CONT PRN 07/17/19 07:15 07/19/19 00:14 10 MLS/HR Milrinone Lactate/ Dextrose 100 ml @ 0 mls/hr CONT PRN 07/18/19 07:15 07/19/19 03:23 4.2 MLS/HR Morphine Sulfate 30 ml @ 0 mls/hr CONT PRN PRN 07/18/19 12:45 07/18/19 16:01 1 MLS/HR Morphine Sulfate (Morphine Sulfate) 4 mg PRN Q1HR PRN 07/17/19 11:15 07/18/19 13:53 4 MG Nitroglycerin (Nitrostat) 0.4 mg 1X ONCE 07/17/19 04:30 07/17/19 04:43 DC 07/17/19 04:29 0.4 MG Nitroglycerin/ Dextrose 250 ml @ 0 mls/hr 1X ONCE 07/17/19 04:45 07/17/19 04:46 DC 07/17/19 04:47 1.5 MLS/HR Norepinephrine Bitartrate 32 mg/ Dextrose 282 ml @ 0 mls/hr CONT PRN 07/18/19 11:15 07/18/19 13:39 13.5 MLS/HR Norepinephrine Bitartrate 8 mg/ Dextrose 258 ml @ 0 mls/hr CONT PRN 07/17/19 06:30 07/18/19 13:40 DC 07/17/19 21:52 11 MLS/HR Ondansetron HCl (Zofran) 4 mg PRN Q8HRS PRN 07/17/19 06:00 07/18/19 05:59 DC Piperacillin Sod/ Tazobactam Sod 2.25 gm/Sodium Chloride 50 ml @ 100 mls/hr Q6HRS 07/17/19 18:00 07/19/19 06:34 100 MLS/HR Piperacillin Sod/ Tazobactam Sod 4.5 gm/Sodium Chloride 100 ml @ 200 mls/hr 1X ONCE 07/17/19 06:00 07/17/19 06:29 DC 07/17/19 11:14 200 MLS/HR Potassium Chloride/Water 100 ml @ 100 mls/hr 1X ONCE 07/18/19 09:45 07/18/19 10:44 DC 07/18/19 10:04 100 MLS/HR Potassium Chloride (Klor-Con) 20 meq BIDWMEALS 07/17/19 17:00 07/18/19 10:36 DC 07/17/19 16:34 20 MEQ Propofol 100 ml @ 0 mls/hr CONT PRN 07/17/19 05:15 07/17/19 05:45 1.7 MLS/HR Rocuronium Fletcher (Zemuron) 50 mg 1X ONCE 07/17/19 04:45 07/17/19 04:46 DC 07/17/19 04:44 50 MG Sodium Chloride 500 ml @ 500 mls/hr 1X PRN PRN 07/17/19 11:00 Ticagrelor (Brilinta) 180 mg 1X ONCE 07/18/19 16:00 07/18/19 16:01 DC 07/18/19 16:08 180 MG Vancomycin HCl (Vanco Per Pharmacy) 1 each PRN DAILY PRN 07/17/19 06:00 07/17/19 10:41 DC 07/17/19 06:43 1 EACH Vancomycin HCl (Vancomycin Trough Level) 1 each 1X ONCE 07/19/19 06:00 07/19/19 06:01 Cancel Vancomycin HCl 1.75 gm/Sodium Chloride 500 ml @ 250 mls/hr Q24H 07/18/19 06:30 07/17/19 10:38 DC Vancomycin HCl 2 gm/Sodium Chloride 500 ml @ 250 mls/hr 1X ONCE 07/17/19 06:00 07/17/19 07:59 DC 07/17/19 06:15 250 MLS/HR Vecuronium Fletcher (Norcuron Bolus) 6 mg PRN Q4HRS PRN 07/18/19 14:00 Labs: Lab Laboratory Tests Test 07/18/19 08:00 07/18/19 08:45 07/18/19 12:05 07/18/19 17:52 O2 Saturation 95 % (92-99) Arterial Blood pH 7.58 (7.35-7.45) Arterial Blood pCO2 at Patient Temp 32 mmHg (35-46) Arterial Blood pO2 at Patient Temp 75 mmHg (65-108) Arterial Blood HCO3 29 mmol/L (21-28) Arterial Blood Base Excess 7 mmol/L (-3-3) FiO2 40%+8 White Blood Count 14.7 x10^3/uL (4.0-11.0) Red Blood Count 5.88 x10^6/uL (4.30-5.70) Hemoglobin 17.1 g/dL (13.0-17.5) Hematocrit 52.6 % (39.0-53.0) Mean Corpuscular Volume 89 fL (79-100) Mean Corpuscular Hemoglobin 29 pg (25-35) Mean Corpuscular Hemoglobin Concent 33 g/dL (31-37) Red Cell Distribution Width 17.0 % (11.5-14.5) Platelet Count 156 x10^3/uL (140-400) Neutrophils (%) (Auto) 51 % (31-73) Lymphocytes (%) (Auto) 45 % (24-48) Monocytes (%) (Auto) 3 % (0-9) Eosinophils (%) (Auto) 0 % (0-3) Basophils (%) (Auto) 1 % (0-3) Neutrophils # (Auto) 7.5 x10^3/uL (1.8-7.7) Lymphocytes # (Auto) 6.6 x10^3/uL (1.0-4.8) Monocytes # (Auto) 0.4 x10^3/uL (0.0-1.1) Eosinophils # (Auto) 0.0 x10^3/uL (0.0-0.7) Basophils # (Auto) 0.2 x10^3/uL (0.0-0.2) Sodium Level 150 mmol/L (136-145) Potassium Level 3.4 mmol/L (3.5-5.1) Chloride Level 108 mmol/L (98-107) Carbon Dioxide Level 29 mmol/L (21-32) Anion Gap 13 (6-14) Blood Urea Nitrogen 51 mg/dL (8-26) Creatinine 3.3 mg/dL (0.7-1.3) Estimated GFR (Cockcroft-Gault) 18.5 BUN/Creatinine Ratio 15 (6-20) Glucose Level 220 mg/dL (70-99) Calcium Level 7.9 mg/dL (8.5-10.1) Total Bilirubin 1.1 mg/dL (0.2-1.0) Aspartate Amino Transf (AST/SGOT) 34 U/L (15-37) Alanine Aminotransferase (ALT/SGPT) 20 U/L (16-63) Alkaline Phosphatase 88 U/L (46-116) Total Protein 6.0 g/dL (6.4-8.2) Albumin 2.6 g/dL (3.4-5.0) Albumin/Globulin Ratio 0.8 (1.0-1.7) Glucose (Fingerstick) 199 mg/dL (70-99) 183 mg/dL (70-99) Test 07/19/19 00:17 07/19/19 05:00 07/19/19 05:19 Glucose (Fingerstick) 153 mg/dL (70-99) 150 mg/dL (70-99) White Blood Count 12.9 x10^3/uL (4.0-11.0) Red Blood Count 5.24 x10^6/uL (4.30-5.70) Hemoglobin 15.1 g/dL (13.0-17.5) Hematocrit 45.8 % (39.0-53.0) Mean Corpuscular Volume 88 fL (79-100) Mean Corpuscular Hemoglobin 29 pg (25-35) Mean Corpuscular Hemoglobin Concent 33 g/dL (31-37) Red Cell Distribution Width 16.7 % (11.5-14.5) Platelet Count 190 x10^3/uL (140-400) Neutrophils (%) (Auto) 64 % (31-73) Lymphocytes (%) (Auto) 20 % (24-48) Monocytes (%) (Auto) 15 % (0-9) Eosinophils (%) (Auto) 0 % (0-3) Basophils (%) (Auto) 1 % (0-3) Neutrophils # (Auto) 8.3 x10^3/uL (1.8-7.7) Lymphocytes # (Auto) 2.5 x10^3/uL (1.0-4.8) Monocytes # (Auto) 1.9 x10^3/uL (0.0-1.1) Eosinophils # (Auto) 0.0 x10^3/uL (0.0-0.7) Basophils # (Auto) 0.1 x10^3/uL (0.0-0.2) Sodium Level 147 mmol/L (136-145) Potassium Level 3.4 mmol/L (3.5-5.1) Chloride Level 107 mmol/L (98-107) Carbon Dioxide Level 29 mmol/L (21-32) Anion Gap 11 (6-14) Blood Urea Nitrogen 59 mg/dL (8-26) Creatinine 3.3 mg/dL (0.7-1.3) Estimated GFR (Cockcroft-Gault) 18.5 Glucose Level 150 mg/dL (70-99) Calcium Level 7.7 mg/dL (8.5-10.1) Magnesium Level 2.1 mg/dL (1.8-2.4) Objective: Assessment: 1. Sepsis. 2. Leukocytosis. 3. Lactic acidosis. 4. Acute hypoxic respiratory failure, status post intubation. Bilateral pulmonary infiltrates 5. Congestive heart failure. s/p VT arrest 07/17 s/p PCI with stent placement 6. Cardiomyopathy. 7. DONTAE on Chronic kidney disease. 8. Gastroesophageal reflux disease. 9. On amiodarone. 10. COVID neg Plan: Plan of Care Continues Zosyn/ Zyvox Status post 1 dose of vancomycin f/u cult and labs in am cont supportive care Critically ill d/w MARGRET Smith MD July 19, 2019 07:41
[2019-07-19] MEDS: NOREPINEPHRINE VIAL 32 MG in IV DEXTROSE 5% 250 ML IV PRN ×2 (07:50→10:39)
[2019-07-19 08:05] LABS: % LYMPHS 18 % (24-48); % MONOS 10 % (0-10); % SEGS 72 % (35-66); PLT ESTIMATE ADEQUATE (ADEQUATE)
[2019-07-19] MEDS: LANSOPRAZOLE 30 MG TAB.RAP.DR FT SCH (08:47)
[2019-07-19] MEDS: AMIODARONE HCL 200 MG TABLET. PO SCH (08:47)
[2019-07-19] MEDS: APIXABAN 5 MG TABLET. FT SCH ×2 (08:47→21:28)
[2019-07-19] MEDS: ALPRAZolam 0.5 MG TABLET FT SCH ×2 (08:48→21:00)
[2019-07-19] MEDS: FUROSEMIDE 40 MG/4 ML VIAL. IVP SCH ×2 (09:00→12:46)
[2019-07-19] MEDS ORDERED: metOLazone 2.5 MG TABLET PO SCH (09:00)
[2019-07-19 09:47] LABS: BASE EXCESS ABG 3 mmol/L (-3-3); HCO3 ABG 29 mmol/L (21-28); PCO2 ABG 46 mmHg (35-46); PO2 ABG 101 mmHg (65-108); SAT O2 ABG 97 % (92-99)
[2019-07-19 09:48] LABS: FIO2 ABG 60% VENT
--- NOTE | 2019-07-19 10:45 | PDOC ---
PROGRESS NOTES Subjective Subjective discussed with his nurse. on ventilators with levophed and midodine drip and currently with atrial fibrillation with RVR and treated with digoxin. had RCA angioplasty yesterday with 3 stents placed. CO was okay lab reviewed. Objective Objective Vital Signs Date Time Temp Pulse Resp B/P (MAP) Pulse Ox O2 Delivery O2 Flow Rate FiO2 07/19/19 10:00 154 18 113/77 (89) 99 Ventilator 07/19/19 07:56 98.9 98.9 07/18/19 03:49 15.0 Intake and Output 07/19/19 06:59 Intake Total 2465.55 ml Output Total 1296 ml Balance 1169.55 ml Intake IV Total 2340.55 ml Tube Feeding 125 ml Output Urine Total 1296 ml Physical Exam Abdomen: Soft, Other (decreased bowel sounds) Heart: Normal S1, Normal S2 Extremities: Other (trace edema legs) General: Other (sedated on ventilator) HEENT: Atraumatic Lungs: Other (clear anteiorly) Neuro: Other (sedated on ventilator) Psych/Mental Status: Other (sedated on ventilator) Skin: No rashes Assessment Assessment Problems1. Acute pulmonary edema. compensated 2. Acute on chronic systolic congestive heart failure.compensated 3. Severe cardiomyopathy with left ventricular ejection fraction 10-15%. 4. Acute hypoxic and hypercarbic respiratory failure, on the ventilator. 5. Paroxysmal atrial fibrillation, currently a fib RVR 6. sepsis with shock, maintained on pressor 7. Chronic kidney disease stage 3. 8. Gastroesophageal reflux disease. 9. Leukocytosis better bilateral lung infiltrates. suspect pneumonia hypernatremia mild hypokalemia mild hypomagnesemia VT cardiac arrest 07/17 PTCA and 3 stents RCA 07/17 Medical Problems: (1) Acute exacerbation of CHF (congestive heart failure) Status: Acute (2) Acute on chronic renal insufficiency Status: Acute (3) Elevated troponin I level Status: Acute (4) Septic shock Status: Acute (5) Suspected COVID-19 virus infection Status: Acute Plan Plan of Care continue ventilator support continue iv milrinone and pressor replete kcl continue iv zyvox and zosyn continue iv lasix not tolerating tube feeding due to high gastric residuals. nurse to discuss TPN with cardiology and nephrology lab and cxr tomorrow continue prevacid continue eliquis Comment Review of Relevant I have reviewed the following items juan (where applicable) has been applied. Labs Laboratory Tests Test 07/17/19 13:32 07/17/19 13:34 07/17/19 17:00 07/18/19 00:43 Urine Collection Type Unknown Urine Color Dk yellow Urine Clarity Cloudy Urine pH 5.0 (<5.0-8.0) Urine Specific [place] 1.025 (1.000-1.030) Urine Protein 100 mg/dL (NEG-TRACE) Urine Glucose (UA) Negative mg/dL (NEG) Urine Ketones (Stick) Trace mg/dL (NEG) Urine Blood Large (NEG) Urine Nitrite Negative (NEG) Urine Bilirubin Small (NEG) Urine Urobilinogen Dipstick 1.0 mg/dL (0.2 mg/dL) Urine Leukocyte Esterase Small (NEG) Urine RBC >40 /HPF (0-2) Urine WBC 1-4 /HPF (0-4) Urine Squamous Epithelial Cells Occ /LPF Urine Bacteria Few /HPF (0-FEW) Troponin I Quantitative 3.718 ng/mL (0.000-0.055) Glucose (Fingerstick) 128 mg/dL (70-99) 125 mg/dL (70-99) Test 07/18/19 05:15 07/18/19 05:30 07/18/19 08:00 07/18/19 08:45 White Blood Count 7.6 x10^3/uL (4.0-11.0) 14.7 x10^3/uL (4.0-11.0) Red Blood Count 5.36 x10^6/uL (4.30-5.70) 5.88 x10^6/uL (4.30-5.70) Hemoglobin 15.4 g/dL (13.0-17.5) 17.1 g/dL (13.0-17.5) Hematocrit 47.2 % (39.0-53.0) 52.6 % (39.0-53.0) Mean Corpuscular Volume 88 fL (79-100) 89 fL (79-100) Mean Corpuscular Hemoglobin 29 pg (25-35) 29 pg (25-35) Mean Corpuscular Hemoglobin Concent 33 g/dL (31-37) 33 g/dL (31-37) Red Cell Distribution Width 16.9 % (11.5-14.5) 17.0 % (11.5-14.5) Platelet Count 129 x10^3/uL (140-400) 156 x10^3/uL (140-400) Neutrophils (%) (Auto) 65 % (31-73) 51 % (31-73) Lymphocytes (%) (Auto) 21 % (24-48) 45 % (24-48) Monocytes (%) (Auto) 12 % (0-9) 3 % (0-9) Eosinophils (%) (Auto) 0 % (0-3) 0 % (0-3) Basophils (%) (Auto) 1 % (0-3) 1 % (0-3) Neutrophils # (Auto) 5.0 x10^3/uL (1.8-7.7) 7.5 x10^3/uL (1.8-7.7) Lymphocytes # (Auto) 1.6 x10^3/uL (1.0-4.8) 6.6 x10^3/uL (1.0-4.8) Monocytes # (Auto) 0.9 x10^3/uL (0.0-1.1) 0.4 x10^3/uL (0.0-1.1) Eosinophils # (Auto) 0.0 x10^3/uL (0.0-0.7) 0.0 x10^3/uL (0.0-0.7) Basophils # (Auto) 0.1 x10^3/uL (0.0-0.2) 0.2 x10^3/uL (0.0-0.2) Sodium Level 148 mmol/L (136-145) 150 mmol/L (136-145) Potassium Level 3.9 mmol/L (3.5-5.1) 3.4 mmol/L (3.5-5.1) Chloride Level 109 mmol/L (98-107) 108 mmol/L (98-107) Carbon Dioxide Level 29 mmol/L (21-32) 29 mmol/L (21-32) Anion Gap 10 (6-14) 13 (6-14) Blood Urea Nitrogen 50 mg/dL (8-26) 51 mg/dL (8-26) Creatinine 3.2 mg/dL (0.7-1.3) 3.3 mg/dL (0.7-1.3) Estimated GFR (Cockcroft-Gault) 19.1 18.5 Glucose Level 145 mg/dL (70-99) 220 mg/dL (70-99) Hemoglobin A1c 5.6 % (4.8-5.6) Calcium Level 8.1 mg/dL (8.5-10.1) 7.9 mg/dL (8.5-10.1) Magnesium Level 1.7 mg/dL (1.8-2.4) Troponin I Quantitative 2.554 ng/mL (0.000-0.055) Triglycerides Level 245 mg/dL (0-150) Cholesterol Level 168 mg/dL (0-200) LDL Cholesterol, Calculated 87 mg/dL (0-100) VLDL Cholesterol, Calculated 49 mg/dL (0-40) Non-HDL Cholesterol Calculated 136 mg/dL (0-129) HDL Cholesterol 32 mg/dL (40-60) Cholesterol/HDL Ratio 5.3 Procalcitonin 2.54 ng/mL (0.00-0.10) Glucose (Fingerstick) 151 mg/dL (70-99) O2 Saturation 95 % (92-99) Arterial Blood pH 7.58 (7.35-7.45) Arterial Blood pCO2 at Patient Temp 32 mmHg (35-46) Arterial Blood pO2 at Patient Temp 75 mmHg (65-108) Arterial Blood HCO3 29 mmol/L (21-28) Arterial Blood Base Excess 7 mmol/L (-3-3) FiO2 40%+8 BUN/Creatinine Ratio 15 (6-20) Total Bilirubin 1.1 mg/dL (0.2-1.0) Aspartate Amino Transf (AST/SGOT) 34 U/L (15-37) Alanine Aminotransferase (ALT/SGPT) 20 U/L (16-63) Alkaline Phosphatase 88 U/L (46-116) Total Protein 6.0 g/dL (6.4-8.2) Albumin 2.6 g/dL (3.4-5.0) Albumin/Globulin Ratio 0.8 (1.0-1.7) Test 07/18/19 12:05 07/18/19 17:52 07/19/19 00:17 07/19/19 05:00 Glucose (Fingerstick) 199 mg/dL (70-99) 183 mg/dL (70-99) 153 mg/dL (70-99) White Blood Count 12.9 x10^3/uL (4.0-11.0) Red Blood Count 5.24 x10^6/uL (4.30-5.70) Hemoglobin 15.1 g/dL (13.0-17.5) Hematocrit 45.8 % (39.0-53.0) Mean Corpuscular Volume 88 fL (79-100) Mean Corpuscular Hemoglobin 29 pg (25-35) Mean Corpuscular Hemoglobin Concent 33 g/dL (31-37) Red Cell Distribution Width 16.7 % (11.5-14.5) Platelet Count 190 x10^3/uL (140-400) Neutrophils (%) (Auto) 64 % (31-73) Lymphocytes (%) (Auto) 20 % (24-48) Monocytes (%) (Auto) 15 % (0-9) Eosinophils (%) (Auto) 0 % (0-3) Basophils (%) (Auto) 1 % (0-3) Neutrophils # (Auto) 8.3 x10^3/uL (1.8-7.7) Lymphocytes # (Auto) 2.5 x10^3/uL (1.0-4.8) Monocytes # (Auto) 1.9 x10^3/uL (0.0-1.1) Eosinophils # (Auto) 0.0 x10^3/uL (0.0-0.7) Basophils # (Auto) 0.1 x10^3/uL (0.0-0.2) Segmented Neutrophils % 72 % (35-66) Lymphocytes % 18 % (24-48) Monocytes % 10 % (0-10) Platelet Estimate Adequate (ADEQUATE) Large Platelets Occ Sodium Level 147 mmol/L (136-145) Potassium Level 3.4 mmol/L (3.5-5.1) Chloride Level 107 mmol/L (98-107) Carbon Dioxide Level 29 mmol/L (21-32) Anion Gap 11 (6-14) Blood Urea Nitrogen 59 mg/dL (8-26) Creatinine 3.3 mg/dL (0.7-1.3) Estimated GFR (Cockcroft-Gault) 18.5 Glucose Level 150 mg/dL (70-99) Calcium Level 7.7 mg/dL (8.5-10.1) Magnesium Level 2.1 mg/dL (1.8-2.4) Test 07/19/19 05:19 07/19/19 09:20 Glucose (Fingerstick) 150 mg/dL (70-99) O2 Saturation 97 % (92-99) Arterial Blood pH 7.41 (7.35-7.45) Arterial Blood pCO2 at Patient Temp 46 mmHg (35-46) Arterial Blood pO2 at Patient Temp 101 mmHg (65-108) Arterial Blood HCO3 29 mmol/L (21-28) Arterial Blood Base Excess 3 mmol/L (-3-3) FiO2 60% vent Laboratory Tests Test 07/18/19 12:05 07/18/19 17:52 07/19/19 00:17 07/19/19 05:00 Glucose (Fingerstick) 199 mg/dL (70-99) 183 mg/dL (70-99) 153 mg/dL (70-99) White Blood Count 12.9 x10^3/uL (4.0-11.0) Red Blood Count 5.24 x10^6/uL (4.30-5.70) Hemoglobin 15.1 g/dL (13.0-17.5) Hematocrit 45.8 % (39.0-53.0) Mean Corpuscular Volume 88 fL (79-100) Mean Corpuscular Hemoglobin 29 pg (25-35) Mean Corpuscular Hemoglobin Concent 33 g/dL (31-37) Red Cell Distribution Width 16.7 % (11.5-14.5) Platelet Count 190 x10^3/uL (140-400) Neutrophils (%) (Auto) 64 % (31-73) Lymphocytes (%) (Auto) 20 % (24-48) Monocytes (%) (Auto) 15 % (0-9) Eosinophils (%) (Auto) 0 % (0-3) Basophils (%) (Auto) 1 % (0-3) Neutrophils # (Auto) 8.3 x10^3/uL (1.8-7.7) Lymphocytes # (Auto) 2.5 x10^3/uL (1.0-4.8) Monocytes # (Auto) 1.9 x10^3/uL (0.0-1.1) Eosinophils # (Auto) 0.0 x10^3/uL (0.0-0.7) Basophils # (Auto) 0.1 x10^3/uL (0.0-0.2) Segmented Neutrophils % 72 % (35-66) Lymphocytes % 18 % (24-48) Monocytes % 10 % (0-10) Platelet Estimate Adequate (ADEQUATE) Large Platelets Occ Sodium Level 147 mmol/L (136-145) Potassium Level 3.4 mmol/L (3.5-5.1) Chloride Level 107 mmol/L (98-107) Carbon Dioxide Level 29 mmol/L (21-32) Anion Gap 11 (6-14) Blood Urea Nitrogen 59 mg/dL (8-26) Creatinine 3.3 mg/dL (0.7-1.3) Estimated GFR (Cockcroft-Gault) 18.5 Glucose Level 150 mg/dL (70-99) Calcium Level 7.7 mg/dL (8.5-10.1) Magnesium Level 2.1 mg/dL (1.8-2.4) Test 07/19/19 05:19 07/19/19 09:20 Glucose (Fingerstick) 150 mg/dL (70-99) O2 Saturation 97 % (92-99) Arterial Blood pH 7.41 (7.35-7.45) Arterial Blood pCO2 at Patient Temp 46 mmHg (35-46) Arterial Blood pO2 at Patient Temp 101 mmHg (65-108) Arterial Blood HCO3 29 mmol/L (21-28) Arterial Blood Base Excess 3 mmol/L (-3-3) FiO2 60% vent Microbiology 07/17/19 Urine Culture - Final, Complete 07/17/19 Urine Culture Result 1 (BOYD) - Final, Complete 07/17/19 Blood Culture - Preliminary, Resulted NO GROWTH AFTER 2 DAYS Medications Current Medications Nitroglycerin (Nitrostat) 0.4 mg STK-MED ONCE SL ; Start 07/17/19 at 04:28; Stop 07/17/19 at 04:28; Status DC Nitroglycerin (Nitrostat) 0.4 mg 1X ONCE SL Last administered on 07/17/19at 04:29; Start 07/17/19 at 04:30; Stop 07/17/19 at 04:43; Status DC Nitroglycerin/ Dextrose 250 ml @ 0 mls/hr 1X ONCE IV Last administered on 07/17/19at 04:47; Start 07/17/19 at 04:45; Stop 07/17/19 at 04:46; Status DC Rocuronium Warren (Zemuron) 50 mg 1X ONCE IV Last administered on 07/17/19at 04:44; Start 07/17/19 at 04:45; Stop 07/17/19 at 04:46; Status DC Etomidate (Amidate) 20 mg 1X ONCE IV Last administered on 07/17/19at 04:43; Start 07/17/19 at 04:45; Stop 07/17/19 at 04:46; Status DC Propofol 100 ml @ 0 mls/hr CONT PRN IV SEE PROTOCOL Last administered on 07/17/19at 05:45; Start 07/17/19 at 05:15 Aspirin (Aspirin Rectal Supp) 300 mg 1X ONCE LA Last administered on 07/17/19at 06:01; Start 07/17/19 at 05:45; Stop 07/17/19 at 05:46; Status DC Bumetanide (Bumex) 1 mg 1X ONCE IV Last administered on 07/17/19at 06:00; Start 07/17/19 at 06:00; Stop 07/17/19 at 06:01; Status DC Piperacillin Sod/ Tazobactam Sod 4.5 gm/Sodium Chloride 100 ml @ 200 mls/hr 1X ONCE IV Last administered on 07/17/19at 11:14; Start 07/17/19 at 06:00; Stop 07/17/19 at 06:29; Status DC Vancomycin HCl (Vanco Per Pharmacy) 1 each PRN DAILY PRN MC SEE COMMENTS Last administered on 07/17/19at 06:43; Start 07/17/19 at 06:00; Stop 07/17/19 at 10:41; Status DC Vancomycin HCl 2 gm/Sodium Chloride 500 ml @ 250 mls/hr 1X ONCE IV Last administered on 07/17/19at 06:15; Start 07/17/19 at 06:00; Stop 07/17/19 at 07:59; Status DC Ondansetron HCl (Zofran) 4 mg PRN Q8HRS PRN IV NAUSEA/VOMITING; Start 07/17/19 at 06:00; Stop 07/18/19 at 05:59; Status DC Norepinephrine Bitartrate 8 mg/ Dextrose 258 ml @ 0 mls/hr CONT PRN IV SEE I/O RECORD Last administered on 07/17/19at 21:52; Start 07/17/19 at 06:30; Stop 07/18/19 at 13:40; Status DC Vancomycin HCl 1.75 gm/Sodium Chloride 500 ml @ 250 mls/hr Q24H IV ; Start 07/18/19 at 06:30; Stop 07/17/19 at 10:38; Status DC Vancomycin HCl (Vancomycin Trough Level) 1 each 1X ONCE MC ; Start 07/19/19 at 06:00; Stop 07/19/19 at 06:01; Status Cancel Morphine Sulfate (Morphine Sulfate) 6 mg 1X ONCE IV Last administered on 07/17/19at 07:08; Start 07/17/19 at 07:15; Stop 07/17/19 at 07:16; Status DC Midazolam HCl 100 ml @ 0 mls/hr CONT PRN IV SEE PROTOCOL Last administered on 07/19/19at 00:14; Start 07/17/19 at 07:15 Morphine Sulfate (Morphine Sulfate) 4 mg PRN Q1HR PRN IV SEE COMMENTS.; Start 07/17/19 at 08:00; Stop 07/17/19 at 10:38; Status DC Heparin Sodium (Porcine) (Heparin Sodium) 5,000 unit Q12HR SQ ; Start 07/17/19 at 21:00; Stop 07/17/19 at 10:38; Status DC Amiodarone HCl (Cordarone) 200 mg DAILY PO Last administered on 07/19/19at 08:47; Start 07/18/19 at 09:00 Metolazone (Zaroxolyn) 2.5 mg QODAY PO ; Start 07/19/19 at 09:00; Stop 07/18/19 at 10:36; Status DC Potassium Chloride (Klor-Con) 20 meq BIDWMEALS PO Last administered on 07/17/19at 16:34; Start 07/17/19 at 17:00; Stop 07/18/19 at 10:36; Status DC Furosemide (Lasix) 40 mg [id number] IVP Last administered on 07/18/19at 08:03; Start 07/17/19 at 14:00 Morphine Sulfate (Morphine Sulfate) 2 mg PRN Q4HRS PRN IV SEE COMMENTS.; Start 07/17/19 at 10:30; Status Cancel Apixaban (Eliquis) 5 mg BID FT Last administered on 07/19/19at 08:47; Start 07/17/19 at 21:00 Insulin Human Lispro (HumaLOG) 0-6 UNITS Q6HRS SQ ; Start 07/17/19 at 12:00 Lansoprazole (Prevacid) 30 mg DAILY FT Last administered on 07/19/19at 08:47; Start 07/18/19 at 09:00 Acetaminophen (Tylenol) 650 mg PRN Q6HRS PRN FT MILD PAIN / TEMP > 100.3'F; Start 07/17/19 at 10:30 Alprazolam (Xanax) 1 mg BID FT ; Start 07/17/19 at 21:00 Magnesium Hydroxide (Milk Of Magnesia) 2,400 mg PRN DAILY PRN FT CONSTIPATION; Start 07/17/19 at 10:30 Dexmedetomidine HCl 400 mcg/ Sodium Chloride 100 ml @ 0 mls/hr CONT PRN IV PER PROTOCOL Last administered on 07/19/19at 07:50; Start 07/17/19 at 11:00 Sodium Chloride 500 ml @ 500 mls/hr 1X PRN PRN IV SEE COMMENTS; Start 07/17/19 at 11:00 Atropine Sulfate (ATROPINE 0.5mg SYRINGE) 0.5 mg PRN Q5MIN PRN IV SEE COMMENTS; Start 07/17/19 at 11:00 Morphine Sulfate (Morphine Sulfate) 2 mg PRN Q1HR PRN IV SEE COMMENTS. Last administered on 07/17/19at 13:37; Start 07/17/19 at 11:15 Morphine Sulfate (Morphine Sulfate) 4 mg PRN Q1HR PRN IV SEE COMMENTS. Last administered on 07/18/19at 13:53; Start 07/17/19 at 11:15 Piperacillin Sod/ Tazobactam Sod 2.25 gm/Sodium Chloride 50 ml @ 100 mls/hr Q6HRS IV Last administered on 07/19/19at 06:34; Start 07/17/19 at 18:00 Magnesium Sulfate 50 ml @ 25 mls/hr 1X ONCE IV Last administered on 07/18/19at 08:04; Start 07/18/19 at 07:15; Stop 07/18/19 at 09:14; Status DC Milrinone Lactate/ Dextrose 100 ml @ 0 mls/hr CONT PRN IV SEE I/O RECORD Last administered on 07/19/19at 03:23; Start 07/18/19 at 07:15 Linezolid/Dextrose 300 ml @ 300 mls/hr Q12HR IV Last administered on 07/19/19at 08:49; Start 07/18/19 at 09:00 Info (Anti-Coagulation Monitoring By Pharmacy) 1 each PRN DAILY PRN MC SEE COMMENTS; Start 07/18/19 at 08:00 Vecuronium Warren (Norcuron Bolus) 10 mg STK-MED ONCE IV ; Start 07/18/19 at 09:12; Stop 07/18/19 at 09:12; Status DC Potassium Chloride/Water 100 ml @ 100 mls/hr 1X ONCE IV Last administered on 07/18/19at 10:04; Start 07/18/19 at 09:45; Stop 07/18/19 at 10:44; Status DC Magnesium Sulfate 50 ml @ 25 mls/hr 1X ONCE IV Last administered on 07/18/19at 10:03; Start 07/18/19 at 09:45; Stop 07/18/19 at 11:44; Status DC Norepinephrine Bitartrate 32 mg/ Dextrose 282 ml @ 0 mls/hr CONT PRN IV SEE I/O RECORD Last administered on 07/19/19at 07:50; Start 07/18/19 at 11:15 Morphine Sulfate 30 ml @ 0 mls/hr CONT PRN PRN IV PER PROTOCOL Last administered on 07/18/19at 16:01; Start 07/18/19 at 12:45 Lidocaine HCl (Xylocaine-Mpf 1% 2ml Vial) 2 ml STK-MED ONCE .ROUTE ; Start 07/18/19 at 13:05; Stop 07/18/19 at 13:05; Status DC Iodixanol (Visipaque 320) 100 ml STK-MED ONCE .ROUTE ; Start 07/18/19 at 13:05; Stop 07/18/19 at 13:06; Status DC Heparin Sodium/ Sodium Chloride 1,500 ml @ As Directed STK-MED ONCE .ROUTE ; S tart 07/18/19 at 13:05; Stop 07/18/19 at 13:06; Status DC Vecuronium Warren (Norcuron Bolus) 10 mg STK-MED ONCE IV ; Start 07/18/19 at 13:49; Stop 07/18/19 at 13:49; Status DC Vecuronium Warren (Norcuron Bolus) 6 mg PRN Q4HRS PRN IV ANXIETY / AGITATION; Start 07/18/19 at 14:00 Epinephrine HCl 5 mg/Sodium Chloride 255 ml @ 32.926 mls/ hr CONT PRN IV SEE I/O RECORD; Start 07/18/19 at 14:00 Lidocaine HCl (Lidocaine 1% 20ml Vial) 20 ml STK-MED ONCE .ROUTE ; Start 07/18/19 at 14:11; Stop 07/18/19 at 14:11; Status DC Heparin Sodium (Porcine) (Heparin Sodium) 10,000 unit STK-MED ONCE .ROUTE ; Start 07/18/19 at 14:27; Stop 07/18/19 at 14:28; Status DC Heparin Sodium/ Sodium Chloride (HEPARIN for ARTERIAL LINE FLUSH) 1,000 unit 1X ONCE IART Last administered on 07/18/19at 14:45; Start 07/18/19 at 14:45; Stop 07/18/19 at 14:52; Status DC Heparin Sodium/ Sodium Chloride (HEPARIN for ARTERIAL LINE FLUSH) 1,000 unit 1X ONCE IART Last administered on 07/18/19at 14:45; Start 07/18/19 at 14:45; Stop 07/18/19 at 14:52; Status DC Iodixanol (Visipaque 320) 100 ml 1X ONCE IART Last administered on 07/18/19at 14:45; Start 07/18/19 at 14:45; Stop 07/18/19 at 14:52; Status DC Heparin Sodium (Porcine) (Heparin Sodium) 7,000 unit 1X ONCE IV Last administered on 07/18/19at 14:45; Start 07/18/19 at 14:45; Stop 07/18/19 at 14:52; Status DC Lidocaine HCl (Lidocaine 1% 20ml Vial) 20 ml 1X ONCE INJ Last administered on 07/18/19at 14:45; Start 07/18/19 at 14:45; Stop 07/18/19 at 14:52; Status DC Heparin Sodium/ Sodium Chloride 500 ml @ As Directed STK-MED ONCE .ROUTE ; Start 07/18/19 at 15:11; Stop 07/18/19 at 15:11; Status DC Ticagrelor (Brilinta) 180 mg 1X ONCE PO Last administered on 07/18/19at 16:08; Start 07/18/19 at 16:00; Stop 07/18/19 at 16:01; Status DC Digoxin (Lanoxin) 250 mcg 1X ONCE IV ; Start 07/19/19 at 06:15; Stop 07/19/19 at 06:16; Status Cancel Digoxin (Lanoxin) 250 mcg 1X ONCE IV Last administered on 07/19/19at 05:15; Start 07/19/19 at 05:15; Stop 07/19/19 at 06:11; Status DC Digoxin (Lanoxin) 250 mcg 1X ONCE IV Last administered on 07/19/19at 08:48; Start 07/19/19 at 09:00; Stop 07/19/19 at 09:01; Status DC Digoxin (Lanoxin) 250 mcg 1X ONCE IV Last administered on 07/19/19at 04:15; Start 07/19/19 at 04:10; Stop 07/19/19 at 06:15; Status DC Vecuronium Warren (Norcuron Bolus) 20 mg STK-MED ONCE IV ; Start 07/18/19 at 12:00; Stop 07/19/19 at 08:48; Status DC Active Scripts Active Toprol XL (Metoprolol Succinate) 50 Mg Tab.er.24h 50 Mg PO DAILY Metolazone 2.5 Mg Tablet 2.5 Mg PO QODAY Furosemide 40 Mg Tablet 40 Mg PO [id number] Klor-Con M20 (Potassium Chloride) 20 Meq Tab.er.prt 20 Meq PO BIDWMEALS Amiodarone Hcl 200 Mg Tablet 200 Mg PO DAILY Eliquis (Apixaban) 5 Mg Tablet 5 Mg PO BID Reported Acetaminophen 325 Mg Tablet 325 Mg PO Q6HRS Dicyclomine Hcl 10 Mg Capsule 1 Cap PO PRN TID PRN Nexium Capsule (Esomeprazole Magnesium) 40 Mg Capsule.dr 40 Mg PO DAILYAC Oxycodone Hcl Immed.release (Oxycodone Hcl) 15 Mg Tablet 15 Mg PO PRN Q12HR PRN Alprazolam 1 Mg Tablet 1 Tab PO BID Vitals/I & O Vital Sign - Last 24 Hours 07/18/19 07/18/19 07/18/19 07/18/19 10:45 10:58 11:44 11:57 Temp 98.8 98.8 Pulse 102 101 105 Resp 16 16 16 B/P (MAP) 116/54 (74) 110/77 (88) 118/62 (80) Pulse Ox 97 98 99 99 O2 Delivery Ventilator Ventilator Ventilator Ventilator 07/18/19 07/18/19 07/18/19 07/18/19 12:00 12:00 12:14 12:30 B/P (MAP) 117/57 (77) Pulse Ox 99 O2 Delivery Mechanical Ventilator Ventilator 07/18/19 07/18/19 07/18/19 07/18/19 12:44 13:00 15:52 16:00 Pulse 97 Resp 16 B/P (MAP) 119/63 (81) Pulse Ox 99 99 97 O2 Delivery Ventilator Ventilator Ventilator Mechanical Ventilator 07/18/19 07/18/19 07/18/19 07/18/19 16:00 16:00 16:01 16:15 Pulse 78 66 Resp 16 B/P (MAP) 138/66 (90) 138/66 (90) 128/60 (82) 140/66 (90) Pulse Ox 97 96 O2 Delivery Ventilator Ventilator 07/18/19 07/18/19 07/18/19 07/18/19 16:25 16:34 16:45 17:00 Temp 99.2 99.2 Pulse 105 64 68 Resp 16 16 16 B/P (MAP) 131/63 (85) 134/60 (84) 132/66 (88) Pulse Ox 96 96 96 96 O2 Delivery Ventilator Ventilator Ventilator Ventilator 07/18/19 07/18/19 07/18/19 07/18/19 17:14 17:30 18:00 19:00 Pulse 79 64 64 102 Resp 16 16 16 16 B/P (MAP) 139/64 (89) 138/62 (87) 144/62 (89) 150/74 (99) Pulse Ox 97 97 97 98 O2 Delivery Ventilator Ventilator Ventilator Ventilator 07/18/19 07/18/19 07/18/19 07/18/19 20:00 20:00 20:00 20:00 Temp 98.8 98.8 Pulse 99 99 Resp 20 B/P (MAP) 148/78 (101) 148/78 (101) 156/76 (102) Pulse Ox 99 99 O2 Delivery Mechanical Ventilator Ventilator Ventilator 5/19/20 5/19/20 5/19/20 5/19/20 20:15 20:30 21:00 21:15 Pulse 96 95 89 92 Resp 19 20 17 20 B/P (MAP) 135/71 (92) 110/64 (79) 148/63 (91) 124/56 (78) Pulse Ox 98 98 98 99 O2 Delivery Ventilator Ventilator Ventilator Ventilator 5/19/20 5/19/20 5/19/20 5/19/20 21:30 21:45 22:00 23:00 Pulse 85 89 96 92 Resp 18 16 20 17 B/P (MAP) 138/65 (89) 102/46 (64) 114/58 (76) 126/60 (82) Pulse Ox 99 99 99 100 O2 Delivery Ventilator Ventilator Ventilator Ventilator 520/20 5/20/20 5/20/20 5/20/20 00:00 00:00 00:00 00:01 Temp 99.7 99.7 Pulse 94 94 Resp 18 B/P (MAP) 96/56 (69) 96/56 (69) 98/54 (69) Pulse Ox 99 99 O2 Delivery Mechanical Ventilator Ventilator Ventilator 520/20 5/20/20 5/20/20 5/20/20 01:00 02:00 03:00 04:00 Temp 98.6 98.6 Pulse 93 82 93 160 Resp 20 16 16 16 B/P (MAP) 110/60 (77) 108/60 (76) 119/57 (77) 92/54 (67) Pulse Ox 100 99 99 100 O2 Delivery Ventilator Ventilator Ventilator Ventilator 5/20/20 5/20/20 5/20/20 5/20/20 04:00 04:00 04:15 04:15 Pulse 160 164 164 Resp 16 B/P (MAP) 92/54 (67) 100/56 100/56 (71) 126/76 (93) Pulse Ox 99 O2 Delivery Mechanical Ventilator Ventilator 5/20/20 5/20/20 5/20/20 5/20/20 04:25 04:30 04:45 05:00 Pulse 151 147 154 Resp 19 17 16 B/P (MAP) 156/94 (114) 87/58 (68) 118/70 (86) Pulse Ox 99 99 99 100 O2 Delivery Ventilator Ventilator Ventilator Ventilator 5/20/20 5/20/20 5/20/20 5/20/20 05:15 06:00 07:00 07:48 Pulse 162 162 162 Resp 16 16 B/P (MAP) 100/64 100/68 (79) 98/66 (77) Pulse Ox 100 99 100 O2 Delivery Ventilator Ventilator Ventilator 07/19/19 07/19/19 07/19/19 07/19/19 07:56 08:08 08:08 08:47 Temp 98.9 98.9 Pulse 160 160 Resp 18 B/P (MAP) 99/65 (76) 113/73 (86) 114/62 114/62 (79) Pulse Ox 99 O2 Delivery Ventilator Mechanical Ventilator 07/19/19 07/19/19 07/19/19 08:48 09:12 10:00 Pulse 160 157 154 Resp 18 18 B/P (MAP) 114/62 114/75 (88) 113/77 (89) Pulse Ox 99 99 O2 Delivery Ventilator Ventilator Intake and Output 07/18/19 07/18/19 07/19/19 14:59 22:59 06:59 Intake Total 885 ml 845.55 ml 735 ml Output Total 276 ml 595 ml 425 ml Balance 609 ml 250.55 ml 310 ml RICK CAROLINA MD July 19, 2019 10:45
--- NOTE | 2019-07-19 11:19 | PDOC ---
ADALBERTODEVIN FAY TAYLOR 07/19/19 1119: CARDIO Progress Notes Date and Time Date of Service 07/19/19 Time of Evaluation 1110 Subjective Subjective: Other (intubated) Vitals Vitals Vital Signs Date Time Temp Pulse Resp B/P (MAP) Pulse Ox O2 Delivery O2 Flow Rate FiO2 07/19/19 10:00 154 18 113/77 (89) 99 Ventilator 07/19/19 07:56 98.9 98.9 Weight Weight [ ] Input and Output Intake and Output Intake and Output 07/19/19 07:00 Intake Total 2465.55 ml Output Total 1296 ml Balance 1169.55 ml Intake IV Total 2340.55 ml Tube Feeding 125 ml Output Urine Total 1296 ml Laboratory Labs Laboratory Tests Test 07/18/19 12:05 07/18/19 17:52 07/19/19 00:17 07/19/19 05:00 Glucose (Fingerstick) 199 mg/dL (70-99) 183 mg/dL (70-99) 153 mg/dL (70-99) White Blood Count 12.9 x10^3/uL (4.0-11.0) Red Blood Count 5.24 x10^6/uL (4.30-5.70) Hemoglobin 15.1 g/dL (13.0-17.5) Hematocrit 45.8 % (39.0-53.0) Mean Corpuscular Volume 88 fL (79-100) Mean Corpuscular Hemoglobin 29 pg (25-35) Mean Corpuscular Hemoglobin Concent 33 g/dL (31-37) Red Cell Distribution Width 16.7 % (11.5-14.5) Platelet Count 190 x10^3/uL (140-400) Neutrophils (%) (Auto) 64 % (31-73) Lymphocytes (%) (Auto) 20 % (24-48) Monocytes (%) (Auto) 15 % (0-9) Eosinophils (%) (Auto) 0 % (0-3) Basophils (%) (Auto) 1 % (0-3) Neutrophils # (Auto) 8.3 x10^3/uL (1.8-7.7) Lymphocytes # (Auto) 2.5 x10^3/uL (1.0-4.8) Monocytes # (Auto) 1.9 x10^3/uL (0.0-1.1) Eosinophils # (Auto) 0.0 x10^3/uL (0.0-0.7) Basophils # (Auto) 0.1 x10^3/uL (0.0-0.2) Segmented Neutrophils % 72 % (35-66) Lymphocytes % 18 % (24-48) Monocytes % 10 % (0-10) Platelet Estimate Adequate (ADEQUATE) Large Platelets Occ Sodium Level 147 mmol/L (136-145) Potassium Level 3.4 mmol/L (3.5-5.1) Chloride Level 107 mmol/L (98-107) Carbon Dioxide Level 29 mmol/L (21-32) Anion Gap 11 (6-14) Blood Urea Nitrogen 59 mg/dL (8-26) Creatinine 3.3 mg/dL (0.7-1.3) Estimated GFR (Cockcroft-Gault) 18.5 Glucose Level 150 mg/dL (70-99) Calcium Level 7.7 mg/dL (8.5-10.1) Magnesium Level 2.1 mg/dL (1.8-2.4) Test 07/19/19 05:19 07/19/19 09:20 Glucose (Fingerstick) 150 mg/dL (70-99) O2 Saturation 97 % (92-99) Arterial Blood pH 7.41 (7.35-7.45) Arterial Blood pCO2 at Patient Temp 46 mmHg (35-46) Arterial Blood pO2 at Patient Temp 101 mmHg (65-108) Arterial Blood HCO3 29 mmol/L (21-28) Arterial Blood Base Excess 3 mmol/L (-3-3) FiO2 60% vent Microbiology Micro Microbiology 07/17/19 Urine Culture - Final, Complete 07/17/19 Urine Culture Result 1 (BOYD) - Final, Complete 07/17/19 Blood Culture - Preliminary, Resulted NO GROWTH AFTER 2 DAYS Physical Exam LUNGS: Other (mechanical ) Heart: RRR (AFIB with RVR) Extremities: Other (1+ bilateral LE edema) Neurology: other (sedated) Other Exams 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 Acute on chronic respiratory failure with a/c CHF, PNA; s/p intubation. COVID negative 2. Acute on chronic systolic CHF; 3. Severe cardiomyopathy; LVEF 10-15% per echo 06/12/19. Cath with normal CO, filling pressures 4. CAD; s/p PCI/DARSHAN to the RCA 5. Leukocytosis, lactic acidosis, low-grade fevers 6. Septic shock; pressor support 7 DONTAE on CKD; Cr 3.3 8. Mild troponin elevation; initial 0.075. Possible type II, demand ischemia with multiple culprits noted above. No reports of recent CP 9. Arrhythmia; PSVT; s/p CV during cardiac cath 07/18. Now appears AFIB with R VR. rate 125-155. received IV dig x3 overnight Recommendations Secondary prevention; DAPT with ASA/Brilinta Continue Amiodarone Poor candidate for dig given renal failure Will add low dose metoprolol Limited echo Titrate off pressor support as able Continue milrinone Resume low dose Eliquis for stroke prophylaxis Consider repeat CV Supportive care VENU YODER MD 07/19/19 1720: CARDIO Progress Notes Plan Plan Patient seen and examined. Agree with above nurse practitioner note. Underwent cardioversion today due to unstable tachycardia. Supportive care from a cardiac standpoint. Continue aspirin and Brilinta. Would like to avoid triple therapy if stable and no further intervention required will likely start Eliquis in the next 24 to 48 hours and stop his aspirin. DEVIN GLOVER APRN July 19, 2019 11:19 VENU YODER MD July 19, 2019 17:20
--- NOTE | 2019-07-19 11:29 | PDOC ---
SUBJECTIVE ROS On MV levophed and midodine drip s/p PCI to RCA on 07/17 OBJECTIVE Vital Signs Vital Signs Date Time Temp Pulse Resp B/P (MAP) Pulse Ox O2 Delivery O2 Flow Rate FiO2 07/19/19 10:00 154 18 113/77 (89) 99 Ventilator 07/19/19 07:56 98.9 98.9 I & 0 Intake and Output 07/19/19 07:00 Intake Total 2465.55 ml Output Total 1296 ml Balance 1169.55 ml Intake IV Total 2340.55 ml Tube Feeding 125 ml Output Urine Total 1296 ml PHYSICAL EXAM Physical Exam GEN Intubated on MV HEENT: Intubated NECK: supple HEART: S1, S2. LUNGS: decreased breath sounds at base. ABDOMEN: Obese and soft, nontender. EXTREMITIES: Lower extremities with 2+ edema bilaterally. SKIN: No rashes. NEUROLOGIC: grossly normal Antunez + DIAGNOSIS/ASSESSMENT Assessment & Plan DONTAE -Stable ATN/Cardiorenal / Diuretics CKD stage 3/4 Hospitalized in May with Cr 2.1 -2.4- new baseline vs DONTAE DONTAE in May 2019 with Cr of 2.5 - Cardiorenal HyperNatremia- improving HypoKal- replace HypoMg- replace as needed Acute on chronic respiratory failure with a/c CHF/Pneumonia ; intubated On IV Lasix Metolazone dced Acute on chronic systolic CHF- per Cardiology Severe cardiomyopathy; LVEF 10-15% per echo 06/12/19. S/P PCI to RCA 07/17 Leukocytosis, lactic acidosis COVID negative Shock; requiring pressor support PAFIB s/p recent CV COMMENT/RELEVANT DATA Meds Current Medications Medications (Trade) Dose Ordered Sig/Chance Start Time Stop Time Status Last Admin Dose Admin Acetaminophen (Tylenol) 650 mg PRN Q6HRS PRN 07/17/19 10:30 Alprazolam (Xanax) 1 mg BID 07/17/19 21:00 Amiodarone HCl (Cordarone) 200 mg DAILY 07/18/19 09:00 07/19/19 08:47 200 MG Apixaban (Eliquis) 5 mg BID 07/17/19 21:00 07/19/19 08:47 5 MG Aspirin (Aspirin Rectal Supp) 300 mg 1X ONCE 07/17/19 05:45 07/17/19 05:46 DC 07/17/19 06:01 300 MG Atropine Sulfate (ATROPINE 0.5mg SYRINGE) 0.5 mg PRN Q5MIN PRN 07/17/19 11:00 Bumetanide (Bumex) 1 mg 1X ONCE 07/17/19 06:00 07/17/19 06:01 DC 07/17/19 06:00 1 MG Dexmedetomidine HCl 400 mcg/ Sodium Chloride 100 ml @ 0 mls/hr CONT PRN 07/17/19 11:00 07/19/19 07:50 25.4 MLS/HR Digoxin (Lanoxin) 250 mcg 1X ONCE 07/19/19 04:10 07/19/19 06:15 DC 07/19/19 04:15 250 MCG Epinephrine HCl 5 mg/Sodium Chloride 255 ml @ 32.926 mls/ hr CONT PRN 07/18/19 14:00 Etomidate (Amidate) 20 mg 1X ONCE 07/17/19 04:45 07/17/19 04:46 DC 07/17/19 04:43 20 MG Furosemide (Lasix) 40 mg BID92 07/17/19 14:00 07/18/19 08:03 40 MG Heparin Sodium (Porcine) (Heparin Sodium) 7,000 unit 1X ONCE 07/18/19 14:45 07/18/19 14:52 DC 07/18/19 14:45 7,000 UNIT Heparin Sodium/ Sodium Chloride 500 ml @ As Directed STK-MED ONCE 07/18/19 15:11 07/18/19 15:11 DC Heparin Sodium/ Sodium Chloride (HEPARIN for ARTERIAL LINE FLUSH) 1,000 unit 1X ONCE 07/18/19 14:45 07/18/19 14:52 DC 07/18/19 14:45 1,000 UNIT Info (Anti-Coagulation Monitoring By Pharmacy) 1 each PRN DAILY PRN 07/18/19 08:00 Insulin Human Lispro (HumaLOG) 0-6 UNITS Q6HRS 07/17/19 12:00 Iodixanol (Visipaque 320) 100 ml 1X ONCE 07/18/19 14:45 07/18/19 14:52 DC 07/18/19 14:45 104 ML Lansoprazole (Prevacid) 30 mg DAILY 07/18/19 09:00 07/19/19 08:47 30 MG Lidocaine HCl (Lidocaine 1% 20ml Vial) 20 ml 1X ONCE 07/18/19 14:45 07/18/19 14:52 DC 07/18/19 14:45 10 ML Lidocaine HCl (Xylocaine-Mpf 1% 2ml Vial) 2 ml STK-MED ONCE 07/18/19 13:05 07/18/19 13:05 DC Linezolid/Dextrose 300 ml @ 300 mls/hr Q12HR 07/18/19 09:00 07/19/19 08:49 300 MLS/HR Magnesium Hydroxide (Milk Of Magnesia) 2,400 mg PRN DAILY PRN 07/17/19 10:30 Magnesium Sulfate 50 ml @ 25 mls/hr 1X ONCE 07/18/19 09:45 07/18/19 11:44 DC 07/18/19 10:03 25 MLS/HR Metolazone (Zaroxolyn) 2.5 mg QODAY 07/19/19 09:00 07/18/19 10:36 DC Midazolam HCl 100 ml @ 0 mls/hr CONT PRN 07/17/19 07:15 07/19/19 11:10 10 MLS/HR Milrinone Lactate/ Dextrose 100 ml @ 0 mls/hr CONT PRN 07/18/19 07:15 07/19/19 03:23 4.2 MLS/HR Morphine Sulfate 30 ml @ 0 mls/hr CONT PRN PRN 07/18/19 12:45 07/18/19 16:01 1 MLS/HR Morphine Sulfate (Morphine Sulfate) 4 mg PRN Q1HR PRN 07/17/19 11:15 07/18/19 13:53 4 MG Nitroglycerin (Nitrostat) 0.4 mg 1X ONCE 07/17/19 04:30 07/17/19 04:43 DC 07/17/19 04:29 0.4 MG Nitroglycerin/ Dextrose 250 ml @ 0 mls/hr 1X ONCE 07/17/19 04:45 07/17/19 04:46 DC 07/17/19 04:47 1.5 MLS/HR Norepinephrine Bitartrate 32 mg/ Dextrose 282 ml @ 0 mls/hr CONT PRN 07/18/19 11:15 07/19/19 10:39 9 MLS/HR Norepinephrine Bitartrate 8 mg/ Dextrose 258 ml @ 0 mls/hr CONT PRN 07/17/19 06:30 07/18/19 13:40 DC 07/17/19 21:52 11 MLS/HR Ondansetron HCl (Zofran) 4 mg PRN Q8HRS PRN 07/17/19 06:00 07/18/19 05:59 DC Piperacillin Sod/ Tazobactam Sod 2.25 gm/Sodium Chloride 50 ml @ 100 mls/hr Q6HRS 07/17/19 18:00 07/19/19 06:34 100 MLS/HR Piperacillin Sod/ Tazobactam Sod 4.5 gm/Sodium Chloride 100 ml @ 200 mls/hr 1X ONCE 07/17/19 06:00 07/17/19 06:29 DC 07/17/19 11:14 200 MLS/HR Potassium Chloride/Water 100 ml @ 100 mls/hr 1X ONCE 07/18/19 09:45 07/18/19 10:44 DC 07/18/19 10:04 100 MLS/HR Potassium Chloride (Klor-Con) 20 meq BIDWMEALS 07/17/19 17:00 07/18/19 10:36 DC 07/17/19 16:34 20 MEQ Propofol 100 ml @ 0 mls/hr CONT PRN 07/17/19 05:15 07/17/19 05:45 1.7 MLS/HR Rocuronium [place] (Zemuron) 50 mg 1X ONCE 07/17/19 04:45 07/17/19 04:46 DC 07/17/19 04:44 50 MG Sodium Chloride 500 ml @ 500 mls/hr 1X PRN PRN 07/17/19 11:00 Ticagrelor (Brilinta) 180 mg 1X ONCE 07/18/19 16:00 07/18/19 16:01 DC 07/18/19 16:08 180 MG Vancomycin HCl (Vanco Per Pharmacy) 1 each PRN DAILY PRN 07/17/19 06:00 07/17/19 10:41 DC 07/17/19 06:43 1 EACH Vancomycin HCl (Vancomycin Trough Level) 1 each 1X ONCE 07/19/19 06:00 07/19/19 06:01 Cancel Vancomycin HCl 1.75 gm/Sodium Chloride 500 ml @ 250 mls/hr Q24H 07/18/19 06:30 07/17/19 10:38 DC Vancomycin HCl 2 gm/Sodium Chloride 500 ml @ 250 mls/hr 1X ONCE 07/17/19 06:00 07/17/19 07:59 DC 07/17/19 06:15 250 MLS/HR Vecuronium [place] (Norcuron Bolus) 20 mg STK-MED ONCE 07/18/19 12:00 07/19/19 08:48 DC Lab Laboratory Tests Test 07/18/19 12:05 07/18/19 17:52 07/19/19 00:17 07/19/19 05:00 Glucose (Fingerstick) 199 mg/dL (70-99) 183 mg/dL (70-99) 153 mg/dL (70-99) White Blood Count 12.9 x10^3/uL (4.0-11.0) Red Blood Count 5.24 x10^6/uL (4.30-5.70) Hemoglobin 15.1 g/dL (13.0-17.5) Hematocrit 45.8 % (39.0-53.0) Mean Corpuscular Volume 88 fL (79-100) Mean Corpuscular Hemoglobin 29 pg (25-35) Mean Corpuscular Hemoglobin Concent 33 g/dL (31-37) Red Cell Distribution Width 16.7 % (11.5-14.5) Platelet Count 190 x10^3/uL (140-400) Neutrophils (%) (Auto) 64 % (31-73) Lymphocytes (%) (Auto) 20 % (24-48) Monocytes (%) (Auto) 15 % (0-9) Eosinophils (%) (Auto) 0 % (0-3) Basophils (%) (Auto) 1 % (0-3) Neutrophils # (Auto) 8.3 x10^3/uL (1.8-7.7) Lymphocytes # (Auto) 2.5 x10^3/uL (1.0-4.8) Monocytes # (Auto) 1.9 x10^3/uL (0.0-1.1) Eosinophils # (Auto) 0.0 x10^3/uL (0.0-0.7) Basophils # (Auto) 0.1 x10^3/uL (0.0-0.2) Segmented Neutrophils % 72 % (35-66) Lymphocytes % 18 % (24-48) Monocytes % 10 % (0-10) Platelet Estimate Adequate (ADEQUATE) Large Platelets Occ Sodium Level 147 mmol/L (136-145) Potassium Level 3.4 mmol/L (3.5-5.1) Chloride Level 107 mmol/L (98-107) Carbon Dioxide Level 29 mmol/L (21-32) Anion Gap 11 (6-14) Blood Urea Nitrogen 59 mg/dL (8-26) Creatinine 3.3 mg/dL (0.7-1.3) Estimated GFR (Cockcroft-Gault) 18.5 Glucose Level 150 mg/dL (70-99) Calcium Level 7.7 mg/dL (8.5-10.1) Magnesium Level 2.1 mg/dL (1.8-2.4) Test 07/19/19 05:19 07/19/19 09:20 07/19/19 11:21 Glucose (Fingerstick) 150 mg/dL (70-99) 160 mg/dL (70-99) O2 Saturation 97 % (92-99) Arterial Blood pH 7.41 (7.35-7.45) Arterial Blood pCO2 at Patient Temp 46 mmHg (35-46) Arterial Blood pO2 at Patient Temp 101 mmHg (65-108) Arterial Blood HCO3 29 mmol/L (21-28) Arterial Blood Base Excess 3 mmol/L (-3-3) FiO2 60% vent Results All relevant outside records, renal labs, imaging studies, telemetry/EKG's were reviewed. GYPSY COLEMAN MD July 19, 2019 11:29
[2019-07-19] MEDS ORDERED: POTASSIUM CHLORIDE 20MEQ 100 ML IV ONE (11:45)
[2019-07-19] MEDS ORDERED: AMIODARONE 150 MG in IV DEXTROSE 5% 100ML 100 ML IV ONE (12:00)
[2019-07-19] MEDS: MORPHINE SULFATE 30 ML IV PRN (12:14)
[2019-07-19] MEDS: METOPROLOL TART IMMED RELEASE 25 MG TABLET. PO SCH ×3 (12:35→23:59)
--- NOTE | 2019-07-19 12:48 | NUR ---
Dr. Barrera at bedside, aware of tachycardia. Received the order to cardiovert at 200j and give a 150 mg Amiodarone bolus one time, and if patient is still tachycardic post cardioversion, cardiovert again at 360j. If patient remains tachycardic, notify Dr. Barrera. Patient was cardioverted successfully at 200j, patient heart rate is now 90s-100s fluctuating between sinus rhythm and afib.
--- NOTE | 2019-07-19 12:52 | PDOC ---
PULMONARY PROGRESS NOTES Subjective Patient sedated, , AC control Vitals Vital Signs Date Time Temp Pulse Resp B/P (MAP) Pulse Ox O2 Delivery O2 Flow Rate FiO2 07/19/19 12:45 98 Ventilator 07/19/19 12:35 102 162/79 07/19/19 12:00 18 07/19/19 11:00 99.6 99.6 HEENT: Other Lungs: Clear Cardiovascular: S1, S2 Abdomen: Soft Extremities: Other (edema) Skin: Warm Labs Laboratory Tests Test 07/17/19 13:32 07/17/19 13:34 07/17/19 17:00 07/18/19 00:43 Urine Collection Type Unknown Urine Color Dk yellow Urine Clarity Cloudy Urine pH 5.0 (<5.0-8.0) Urine Specific [place] 1.025 (1.000-1.030) Urine Protein 100 mg/dL (NEG-TRACE) Urine Glucose (UA) Negative mg/dL (NEG) Urine Ketones (Stick) Trace mg/dL (NEG) Urine Blood Large (NEG) Urine Nitrite Negative (NEG) Urine Bilirubin Small (NEG) Urine Urobilinogen Dipstick 1.0 mg/dL (0.2 mg/dL) Urine Leukocyte Esterase Small (NEG) Urine RBC >40 /HPF (0-2) Urine WBC 1-4 /HPF (0-4) Urine Squamous Epithelial Cells Occ /LPF Urine Bacteria Few /HPF (0-FEW) Troponin I Quantitative 3.718 ng/mL (0.000-0.055) Glucose (Fingerstick) 128 mg/dL (70-99) 125 mg/dL (70-99) Test 07/18/19 05:15 07/18/19 05:30 07/18/19 08:00 07/18/19 08:45 White Blood Count 7.6 x10^3/uL (4.0-11.0) 14.7 x10^3/uL (4.0-11.0) Red Blood Count 5.36 x10^6/uL (4.30-5.70) 5.88 x10^6/uL (4.30-5.70) Hemoglobin 15.4 g/dL (13.0-17.5) 17.1 g/dL (13.0-17.5) Hematocrit 47.2 % (39.0-53.0) 52.6 % (39.0-53.0) Mean Corpuscular Volume 88 fL (79-100) 89 fL (79-100) Mean Corpuscular Hemoglobin 29 pg (25-35) 29 pg (25-35) Mean Corpuscular Hemoglobin Concent 33 g/dL (31-37) 33 g/dL (31-37) Red Cell Distribution Width 16.9 % (11.5-14.5) 17.0 % (11.5-14.5) Platelet Count 129 x10^3/uL (140-400) 156 x10^3/uL (140-400) Neutrophils (%) (Auto) 65 % (31-73) 51 % (31-73) Lymphocytes (%) (Auto) 21 % (24-48) 45 % (24-48) Monocytes (%) (Auto) 12 % (0-9) 3 % (0-9) Eosinophils (%) (Auto) 0 % (0-3) 0 % (0-3) Basophils (%) (Auto) 1 % (0-3) 1 % (0-3) Neutrophils # (Auto) 5.0 x10^3/uL (1.8-7.7) 7.5 x10^3/uL (1.8-7.7) Lymphocytes # (Auto) 1.6 x10^3/uL (1.0-4.8) 6.6 x10^3/uL (1.0-4.8) Monocytes # (Auto) 0.9 x10^3/uL (0.0-1.1) 0.4 x10^3/uL (0.0-1.1) Eosinophils # (Auto) 0.0 x10^3/uL (0.0-0.7) 0.0 x10^3/uL (0.0-0.7) Basophils # (Auto) 0.1 x10^3/uL (0.0-0.2) 0.2 x10^3/uL (0.0-0.2) Sodium Level 148 mmol/L (136-145) 150 mmol/L (136-145) Potassium Level 3.9 mmol/L (3.5-5.1) 3.4 mmol/L (3.5-5.1) Chloride Level 109 mmol/L (98-107) 108 mmol/L (98-107) Carbon Dioxide Level 29 mmol/L (21-32) 29 mmol/L (21-32) Anion Gap 10 (6-14) 13 (6-14) Blood Urea Nitrogen 50 mg/dL (8-26) 51 mg/dL (8-26) Creatinine 3.2 mg/dL (0.7-1.3) 3.3 mg/dL (0.7-1.3) Estimated GFR (Cockcroft-Gault) 19.1 18.5 Glucose Level 145 mg/dL (70-99) 220 mg/dL (70-99) Hemoglobin A1c 5.6 % (4.8-5.6) Calcium Level 8.1 mg/dL (8.5-10.1) 7.9 mg/dL (8.5-10.1) Magnesium Level 1.7 mg/dL (1.8-2.4) Troponin I Quantitative 2.554 ng/mL (0.000-0.055) Triglycerides Level 245 mg/dL (0-150) Cholesterol Level 168 mg/dL (0-200) LDL Cholesterol, Calculated 87 mg/dL (0-100) VLDL Cholesterol, Calculated 49 mg/dL (0-40) Non-HDL Cholesterol Calculated 136 mg/dL (0-129) HDL Cholesterol 32 mg/dL (40-60) Cholesterol/HDL Ratio 5.3 Procalcitonin 2.54 ng/mL (0.00-0.10) Glucose (Fingerstick) 151 mg/dL (70-99) O2 Saturation 95 % (92-99) Arterial Blood pH 7.58 (7.35-7.45) Arterial Blood pCO2 at Patient Temp 32 mmHg (35-46) Arterial Blood pO2 at Patient Temp 75 mmHg (65-108) Arterial Blood HCO3 29 mmol/L (21-28) Arterial Blood Base Excess 7 mmol/L (-3-3) FiO2 40%+8 BUN/Creatinine Ratio 15 (6-20) Total Bilirubin 1.1 mg/dL (0.2-1.0) Aspartate Amino Transf (AST/SGOT) 34 U/L (15-37) Alanine Aminotransferase (ALT/SGPT) 20 U/L (16-63) Alkaline Phosphatase 88 U/L (46-116) Total Protein 6.0 g/dL (6.4-8.2) Albumin 2.6 g/dL (3.4-5.0) Albumin/Globulin Ratio 0.8 (1.0-1.7) Test 07/18/19 12:05 07/18/19 17:52 07/19/19 00:17 07/19/19 05:00 Glucose (Fingerstick) 199 mg/dL (70-99) 183 mg/dL (70-99) 153 mg/dL (70-99) White Blood Count 12.9 x10^3/uL (4.0-11.0) Red Blood Count 5.24 x10^6/uL (4.30-5.70) Hemoglobin 15.1 g/dL (13.0-17.5) Hematocrit 45.8 % (39.0-53.0) Mean Corpuscular Volume 88 fL (79-100) Mean Corpuscular Hemoglobin 29 pg (25-35) Mean Corpuscular Hemoglobin Concent 33 g/dL (31-37) Red Cell Distribution Width 16.7 % (11.5-14.5) Platelet Count 190 x10^3/uL (140-400) Neutrophils (%) (Auto) 64 % (31-73) Lymphocytes (%) (Auto) 20 % (24-48) Monocytes (%) (Auto) 15 % (0-9) Eosinophils (%) (Auto) 0 % (0-3) Basophils (%) (Auto) 1 % (0-3) Neutrophils # (Auto) 8.3 x10^3/uL (1.8-7.7) Lymphocytes # (Auto) 2.5 x10^3/uL (1.0-4.8) Monocytes # (Auto) 1.9 x10^3/uL (0.0-1.1) Eosinophils # (Auto) 0.0 x10^3/uL (0.0-0.7) Basophils # (Auto) 0.1 x10^3/uL (0.0-0.2) Segmented Neutrophils % 72 % (35-66) Lymphocytes % 18 % (24-48) Monocytes % 10 % (0-10) Platelet Estimate Adequate (ADEQUATE) Large Platelets Occ Sodium Level 147 mmol/L (136-145) Potassium Level 3.4 mmol/L (3.5-5.1) Chloride Level 107 mmol/L (98-107) Carbon Dioxide Level 29 mmol/L (21-32) Anion Gap 11 (6-14) Blood Urea Nitrogen 59 mg/dL (8-26) Creatinine 3.3 mg/dL (0.7-1.3) Estimated GFR (Cockcroft-Gault) 18.5 Glucose Level 150 mg/dL (70-99) Calcium Level 7.7 mg/dL (8.5-10.1) Magnesium Level 2.1 mg/dL (1.8-2.4) Test 07/19/19 05:19 07/19/19 09:20 07/19/19 11:21 Glucose (Fingerstick) 150 mg/dL (70-99) 160 mg/dL (70-99) O2 Saturation 97 % (92-99) Arterial Blood pH 7.41 (7.35-7.45) Arterial Blood pCO2 at Patient Temp 46 mmHg (35-46) Arterial Blood pO2 at Patient Temp 101 mmHg (65-108) Arterial Blood HCO3 29 mmol/L (21-28) Arterial Blood Base Excess 3 mmol/L (-3-3) FiO2 60% vent Laboratory Tests Test 07/18/19 17:52 07/19/19 00:17 07/19/19 05:00 07/19/19 05:19 Glucose (Fingerstick) 183 mg/dL (70-99) 153 mg/dL (70-99) 150 mg/dL (70-99) White Blood Count 12.9 x10^3/uL (4.0-11.0) Red Blood Count 5.24 x10^6/uL (4.30-5.70) Hemoglobin 15.1 g/dL (13.0-17.5) Hematocrit 45.8 % (39.0-53.0) Mean Corpuscular Volume 88 fL (79-100) Mean Corpuscular Hemoglobin 29 pg (25-35) Mean Corpuscular Hemoglobin Concent 33 g/dL (31-37) Red Cell Distribution Width 16.7 % (11.5-14.5) Platelet Count 190 x10^3/uL (140-400) Neutrophils (%) (Auto) 64 % (31-73) Lymphocytes (%) (Auto) 20 % (24-48) Monocytes (%) (Auto) 15 % (0-9) Eosinophils (%) (Auto) 0 % (0-3) Basophils (%) (Auto) 1 % (0-3) Neutrophils # (Auto) 8.3 x10^3/uL (1.8-7.7) Lymphocytes # (Auto) 2.5 x10^3/uL (1.0-4.8) Monocytes # (Auto) 1.9 x10^3/uL (0.0-1.1) Eosinophils # (Auto) 0.0 x10^3/uL (0.0-0.7) Basophils # (Auto) 0.1 x10^3/uL (0.0-0.2) Segmented Neutrophils % 72 % (35-66) Lymphocytes % 18 % (24-48) Monocytes % 10 % (0-10) Platelet Estimate Adequate (ADEQUATE) Large Platelets Occ Sodium Level 147 mmol/L (136-145) Potassium Level 3.4 mmol/L (3.5-5.1) Chloride Level 107 mmol/L (98-107) Carbon Dioxide Level 29 mmol/L (21-32) Anion Gap 11 (6-14) Blood Urea Nitrogen 59 mg/dL (8-26) Creatinine 3.3 mg/dL (0.7-1.3) Estimated GFR (Cockcroft-Gault) 18.5 Glucose Level 150 mg/dL (70-99) Calcium Level 7.7 mg/dL (8.5-10.1) Magnesium Level 2.1 mg/dL (1.8-2.4) Test 07/19/19 09:20 07/19/19 11:21 O2 Saturation 97 % (92-99) Arterial Blood pH 7.41 (7.35-7.45) Arterial Blood pCO2 at Patient Temp 46 mmHg (35-46) Arterial Blood pO2 at Patient Temp 101 mmHg (65-108) Arterial Blood HCO3 29 mmol/L (21-28) Arterial Blood Base Excess 3 mmol/L (-3-3) FiO2 60% vent Glucose (Fingerstick) 160 mg/dL (70-99) Medications Active Scripts Medications Dose Route/Sig Max Daily Dose Days Date Category Toprol XL (Metoprolol Succinate) 50 Mg Tab.er.24h 50 Mg PO DAILY 06/20/19 Rx Metolazone 2.5 Mg Tablet 2.5 Mg PO QODAY 06/20/19 Rx Furosemide 40 Mg Tablet 40 Mg PO BID92 06/20/19 Rx Klor-Con M20 (Potassium Chloride) 20 Meq Tab.er.prt 20 Meq PO BIDWMEALS 06/20/19 Rx Amiodarone Hcl 200 Mg Tablet 200 Mg PO DAILY 06/20/19 Rx Eliquis (Apixaban) 5 Mg Tablet 5 Mg PO BID 06/20/19 Rx Acetaminophen 325 Mg Tablet 325 Mg PO Q6HRS 06/13/19 Reported Dicyclomine Hcl 10 Mg Capsule 1 Cap PO PRN TID PRN 05/17/19 Reported Nexium Capsule (Esomeprazole Magnesium) 40 Mg Capsule.dr 40 Mg PO DAILYAC 05/17/19 Reported Oxycodone Hcl Immed.release (Oxycodone Hcl) 15 Mg Tablet 15 Mg PO PRN Q12HR PRN 05/17/19 Reported Alprazolam 1 Mg Tablet 1 Tab PO BID 02/05/17 Reported Impression . IMPRESSION: 1. Acute hypoxemic hypercapnic respiratory failure. 2. Bilateral pulmonary infiltrates, suspect combination of congestive heart failure and pneumonia. 3. Sepsis. 4. SARS-CoV 2, negative 5. Cardiomyopathy, ejection fraction of 15%. 6. Chronic atrial fibrillation. 7. Chronic kidney disease. 8. Acute on chronic systolic heart failure. 9. Hypotension, requiring pressors, suspect secondary to sepsis. 10. Mild elevation in troponin. 11. Paroxysmal atrial fibrillation with recent cardioversion. 12. Status post CODE BLUE secondary to V. tach Conclusion 1. Normal biventricular filling pressures. 2. Mild pulmonary HTN 3. Normal cardiac output at 5.1 L/min 4. One vessel coronary disease. 5. Successful PCI of the RCA as described above 6. Patient had one episode of SVT with hypotension requiring synchronized card ioversion to SR. Recommendations ASA 81mg daily Ticagrelor 90mg bid Will restart Eliquis at low dose if stable overnight. His hypotension is likely vasoplegic/septic shock, rather than cardiac in origin as evidenced by his normal cardiac output. Cardiac arrest this morning likely sequalae of electrolyte disturbances. Plan . See catheterization report Continue assist control Follow cardiology Case discussed with RN Continue empiric antibiotics ABG noted Follow cardiology input GI DVT prophylaxis Total cumulative critical care time of 30 minminutes. The patient was seen during a COVID-19 pandemic. JUAN J CLARK MD July 19, 2019 12:52
--- NOTE | 2019-07-19 14:42 | NUR ---
SS following up with discharge planning. SS reviewed pt chart and discussed with RN, Sabina. Pt is currently on the vent and was cardioverted today. Pt COVID19 negative. SS will continue to follow for discharge planning.
[2019-07-19] MEDS: ANTI-COAG MONITOR BY PHARMACY. MC PRN ×2 (15:22→15:26)
[2019-07-19] MEDS ORDERED: ASPIRIN CHEWABLE 81 MG TABLET. PO ONE (17:00)
[2019-07-19] MEDS ORDERED: TICAGRELOR 90 MG TABLET. PO ONE (17:00)
[2019-07-20] VITALS (35 sets, daily range): BP systolic 55–154; BP diastolic 32–70
[2019-07-20] MEDS: MILRINONE 20MG/100ML PREMIX 100 ML IV PRN (02:37)
[2019-07-20] MEDS: DEXMEDETOMIDINE 400 MCG in IV NORMAL SALINE 100ML 96 ML IV PRN ×3 (02:37→13:31)
[2019-07-20] MEDS: MORPHINE SULFATE 30 ML IV PRN ×2 (03:48→15:34)
[2019-07-20] MEDS: INSULIN LISPRO 300 UNITS/3 ML VIAL. SQ SCH ×4 (05:35→23:56)
[2019-07-20] MEDS: PIPERACILLIN/TAZOBACTAM 2.25 GM in IV NORMAL SALINE 50ML 50 ML IV SCH ×6 (06:00→23:53)
[2019-07-20] MEDS: METOPROLOL TART IMMED RELEASE 25 MG TABLET. PO SCH ×4 (06:00→23:54)
[2019-07-20 06:05] LABS: BASO # 0.1 x10^3/uL (0.0-0.2); BASO % 1 % (0-3); EOS # 0.1 x10^3/uL (0.0-0.7); EOS % 1 % (0-3); HEMATOCRIT 40.7 % (39.0-53.0); HEMOGLOBIN 13.2 g/dL (13.0-17.5); LYMPH % 13 % (24-48); MEAN CORPUSCULAR HEMOGLOBIN 29 pg (25-35); MEAN CORPUSCULAR HGB CONC 33 g/dL (31-37); MEAN CORPUSCULAR VOLUME 89 fL (79-100); MONO # 0.7 x10^3/uL (0.0-1.1); MONO % 9 % (0-9); NEUT # 5.9 x10^3/uL (1.8-7.7); NEUT % 76 % (31-73); PLATELET COUNT 117 x10^3/uL (140-400); RED BLOOD COUNT 4.59 x10^6/uL (4.30-5.70); RED CELL DISTRIBUTION WIDTH 15.9 % (11.5-14.5); WHITE BLOOD COUNT 7.7 x10^3/uL (4.0-11.0)
[2019-07-20 06:11] LABS: CALCIUM 7.7 mg/dL (8.5-10.1); CREATININE 2.7 mg/dL (0.7-1.3); GFR 23.3; POTASSIUM 3.7 mmol/L (3.5-5.1)
--- NOTE | 2019-07-20 07:35 | PDOC ---
CARDIOLOGY PROGRESS NOTE SUBJECTIVE: No new events overnight. Sedated. Intubated. OBJECTIVE: Vital Signs/I&O: Vital Signs Date Time Temp Pulse Resp B/P (MAP) Pulse Ox O2 Delivery O2 Flow Rate FiO2 07/20/19 06:00 80 16 110/51 (70) 99 Ventilator 07/20/19 04:00 99.7 99.7 I & O 07/19/19 07/19/19 07/20/19 15:00 23:00 07:00 Intake Total 553 ml 922.37 ml 673 ml Output Total 1375 ml 880 ml 315 ml Balance -822 ml 42.37 ml 358 ml Objective: Sedated. Normal heart tones Bilateral rhonchi Obese abdomen. 1+ LE edema. 1+ Radial/pedal pulses. CURRENT MEDICATIONS: ASA, Ticagrelor, Metoprolol and Amiodarone. DIAGNOSTIC TESTING: Cr 2.7, improving Labs: Laboratory Tests 07/20/19 05:00 Laboratory Tests Test 07/19/19 09:20 07/19/19 11:21 07/19/19 17:49 07/19/19 23:56 O2 Saturation 97 % (92-99) Arterial Blood pH 7.41 (7.35-7.45) Arterial Blood pCO2 at Patient Temp 46 mmHg (35-46) Arterial Blood pO2 at Patient Temp 101 mmHg (65-108) Arterial Blood HCO3 29 mmol/L (21-28) H Arterial Blood Base Excess 3 mmol/L (-3-3) FiO2 60% vent Glucose (Fingerstick) 160 mg/dL (70-99) H 129 mg/dL (70-99) H 145 mg/dL (70-99) H Test 07/20/19 05:00 07/20/19 05:25 White Blood Count 7.7 x10^3/uL (4.0-11.0) Red Blood Count 4.59 x10^6/uL (4.30-5.70) Hemoglobin 13.2 g/dL (13.0-17.5) Hematocrit 40.7 % (39.0-53.0) Mean Corpuscular Volume 89 fL (79-100) Mean Corpuscular Hemoglobin 29 pg (25-35) Mean Corpuscular Hemoglobin Concent 33 g/dL (31-37) Red Cell Distribution Width 15.9 % (11.5-14.5) H Platelet Count 117 x10^3/uL (140-400) L Neutrophils (%) (Auto) 76 % (31-73) H Lymphocytes (%) (Auto) 13 % (24-48) L Monocytes (%) (Auto) 9 % (0-9) Eosinophils (%) (Auto) 1 % (0-3) Basophils (%) (Auto) 1 % (0-3) Neutrophils # (Auto) 5.9 x10^3/uL (1.8-7.7) Lymphocytes # (Auto) 1.0 x10^3/uL (1.0-4.8) Monocytes # (Auto) 0.7 x10^3/uL (0.0-1.1) Eosinophils # (Auto) 0.1 x10^3/uL (0.0-0.7) Basophils # (Auto) 0.1 x10^3/uL (0.0-0.2) Sodium Level 146 mmol/L (136-145) H Potassium Level 3.7 mmol/L (3.5-5.1) Chloride Level 108 mmol/L (98-107) H Carbon Dioxide Level 31 mmol/L (21-32) Anion Gap 7 (6-14) Blood Urea Nitrogen 58 mg/dL (8-26) H Creatinine 2.7 mg/dL (0.7-1.3) H Estimated GFR (Cockcroft-Gault) 23.3 Glucose Level 128 mg/dL (70-99) H Calcium Level 7.7 mg/dL (8.5-10.1) L Glucose (Fingerstick) 121 mg/dL (70-99) H ASSESSMENT: 1. Acute on chronic systolic/diastolic HF 2. 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 CAD s/p RCA PCI 4. HTN 5. DLP 6. PAF s/p CVN. PLAN: 1. Continue present meds. 2. Monitor I/O closely and repeat BMP tonight and monitor Na 3. COntinue aggressive pulmonary care. Await extubation. 4. Limited echo today. Will follow along. VENU YODER MD July 20, 2019 07:35
[2019-07-20] MEDS: MIDAZOLAM 100mg/100ml NS BAG 100 ML IV PRN ×2 (08:11→17:51)
--- NOTE | 2019-07-20 08:12 | RAD ---
CHEST AP ONLY History: Infiltrates, acute respiratory failure Comparison: July 18, 2019 Findings: Single view of the chest is submitted. There is again enteric catheter, poorly visualized beyond the level of distal esophagus on this exam due to suboptimal exposure. Endotracheal tube tip terminates about 4.5 cm from sabi. There is again cervical fusion hardware. There is again left internal jugular venous catheter, tip likely at the orifice of left brachiocephalic vein. Pericardial cardiac silhouette is probably unchanged, partially obscured. There are again likely at least small pleural effusions greater on the left. There is again degree of elevation of the right hemidiaphragm.There is persistent bilateral airspace opacity with basilar predominance, left greater than right, somewhat increased of the mid hemithoraces bilaterally. Impression: 1. There is persistent bilateral airspace opacity likely due to infiltrates and/or edema with basilar predominance, somewhat increased of the mid hemithoraces. There are again likely at least small bilateral pleural effusions greater on the left. Electronically signed by: Kyle Chamorro MD (07/20/2019 8:09 AM) [id number]
--- NOTE | 2019-07-20 08:24 | PDOC ---
Infectious Disease Note Subjective: Subjective intubated/sedated t max 100.4 Vital Signs: Vital Signs Vital Signs Date Time Temp Pulse Resp B/P (MAP) Pulse Ox O2 Delivery O2 Flow Rate FiO2 07/20/19 08:00 07/20/19 08:00 Mechanical Ventilator 07/20/19 08:00 99.8 64 16 98 99.8 Physical Exam: PHYSICAL EXAM GENERAL: Intubated, sedated. HEENT: ETT and OG tube in place. NECK: Supple. HEART: S1, S2.Tachy ABDOMEN: Soft, bowel sounds present, nontender, nondistended. jade in place LUNGS: dec bs sounds ,rales EXTREMITIES: Trace edema, no cyanosis. DERMATOLOGIC: Warm, dry. No generalized rash. NEUROLOGIC: Intubated, sedated. IJ site looks clean Medications: Inpatient Meds: Current Medications Medications (Trade) Dose Ordered Sig/Chance Start Time Stop Time Status Last Admin Dose Admin Acetaminophen (Tylenol) 650 mg PRN Q6HRS PRN 07/17/19 10:30 Alprazolam (Xanax) 1 mg BID 07/17/19 21:00 Amiodarone HCl (Cordarone) 300 mg STK-MED ONCE 07/18/19 16:08 07/19/19 16:08 DC Amiodarone HCl 150 mg/Dextrose 103 ml @ 618 mls/hr 1X ONCE 07/19/19 12:00 07/19/19 12:09 DC 07/19/19 12:15 Apixaban (Eliquis) 5 mg BID 07/17/19 21:00 07/19/19 21:28 Aspirin (Aspirin Chewable) 81 mg [id number] 07/20/19 08:00 Aspirin (Aspirin Rectal Supp) 300 mg 1X ONCE 07/17/19 05:45 07/17/19 05:46 DC 07/17/19 06:01 Atropine Sulfate (ATROPINE 0.5mg SYRINGE) 0.5 mg PRN Q5MIN PRN 07/17/19 11:00 Bumetanide (Bumex) 1 mg 1X ONCE 07/17/19 06:00 07/17/19 06:01 DC 07/17/19 06:00 Dexmedetomidine HCl 400 mcg/ Sodium Chloride 100 ml @ 0 mls/hr CONT PRN 07/17/19 11:00 07/20/19 06:01 Digoxin (Lanoxin) 250 mcg 1X ONCE 07/19/19 04:10 07/19/19 06:15 DC 07/19/19 04:15 Epinephrine HCl (EPINEPHrine SYRINGE) 4 mg STK-MED ONCE 07/18/19 16:08 07/19/19 16:08 DC Epinephrine HCl 5 mg/Sodium Chloride 255 ml @ 32.926 mls/ hr CONT PRN 07/18/19 14:00 Etomidate (Amidate) 20 mg 1X ONCE 07/17/19 04:45 07/17/19 04:46 DC 07/17/19 04:43 Furosemide (Lasix) 40 mg [id number] 07/17/19 14:00 07/18/19 08:03 Heparin Sodium (Porcine) (Heparin Sodium) 7,000 unit 1X ONCE 07/18/19 14:45 07/18/19 14:52 DC 07/18/19 14:45 Heparin Sodium/ Sodium Chloride 500 ml @ As Directed STK-MED ONCE 07/18/19 15:11 07/18/19 15:11 DC Heparin Sodium/ Sodium Chloride (HEPARIN for ARTERIAL LINE FLUSH) 1,000 unit 1X ONCE 07/18/19 14:45 07/18/19 14:52 DC 07/18/19 14:45 Info (Anti-Coagulation Monitoring By Pharmacy) 1 each PRN DAILY PRN 07/18/19 08:00 07/19/19 15:26 Info (Tpn Per Pharmacy) 1 each PRN DAILY PRN 07/19/19 17:00 Insulin Human Lispro (HumaLOG) 0-6 UNITS Q6HRS 07/17/19 12:00 Iodixanol (Visipaque 320) 100 ml 1X ONCE 07/18/19 14:45 07/18/19 14:52 DC 07/18/19 14:45 Lansoprazole (Prevacid) 30 mg DAILY 07/18/19 09:00 07/19/19 08:47 Lidocaine HCl (Lidocaine 1% 20ml Vial) 20 ml 1X ONCE 07/18/19 14:45 07/18/19 14:52 DC 07/18/19 14:45 Lidocaine HCl (Xylocaine-Mpf 1% 2ml Vial) 2 ml STK-MED ONCE 07/18/19 13:05 07/18/19 13:05 DC Linezolid/Dextrose 300 ml @ 300 mls/hr Q12HR 07/18/19 09:00 07/19/19 21:29 Magnesium Hydroxide (Milk Of Magnesia) 2,400 mg PRN DAILY PRN 07/17/19 10:30 Magnesium Sulfate 50 ml @ 25 mls/hr 1X ONCE 07/18/19 09:45 07/18/19 11:44 DC 07/18/19 10:03 Metolazone (Zaroxolyn) 2.5 mg QODAY 07/19/19 09:00 07/18/19 10:36 DC Metoprolol Tartrate (Lopressor) 12.5 mg Q6HRS 07/19/19 12:00 07/20/19 06:00 Midazolam HCl 100 ml @ 0 mls/hr CONT PRN 07/17/19 07:15 07/20/19 08:11 Milrinone Lactate/ Dextrose 100 ml @ 0 mls/hr CONT PRN 07/18/19 07:15 07/20/19 02:37 Morphine Sulfate 30 ml @ 0 mls/hr CONT PRN PRN 07/18/19 12:45 07/20/19 03:48 Morphine Sulfate (Morphine Sulfate) 4 mg PRN Q1HR PRN 07/17/19 11:15 07/18/19 13:53 Nitroglycerin (Nitrostat) 0.4 mg 1X ONCE 07/17/19 04:30 07/17/19 04:43 DC 07/17/19 04:29 Nitroglycerin/ Dextrose 250 ml @ 0 mls/hr 1X ONCE 07/17/19 04:45 07/17/19 04:46 DC 07/17/19 04:47 Norepinephrine Bitartrate 32 mg/ Dextrose 282 ml @ 0 mls/hr CONT PRN 07/18/19 11:15 07/19/19 10:39 Norepinephrine Bitartrate 8 mg/ Dextrose 258 ml @ 0 mls/hr CONT PRN 07/17/19 06:30 07/18/19 13:40 DC 07/17/19 21:52 Ondansetron HCl (Zofran) 4 mg PRN Q8HRS PRN 07/17/19 06:00 07/18/19 05:59 DC Piperacillin Sod/ Tazobactam Sod 2.25 gm/Sodium Chloride 50 ml @ 100 mls/hr Q6HRS 07/17/19 18:00 07/20/19 06:00 Piperacillin Sod/ Tazobactam Sod 4.5 gm/Sodium Chloride 100 ml @ 200 mls/hr 1X ONCE 07/17/19 06:00 07/17/19 06:29 DC 07/17/19 11:14 Potassium Chloride/Water 100 ml @ 100 mls/hr 1X ONCE 07/19/19 11:45 07/19/19 12:44 DC 07/19/19 12:13 Potassium Chloride (Klor-Con) 20 meq BIDWMEALS 07/17/19 17:00 07/18/19 10:36 DC 07/17/19 16:34 Propofol 100 ml @ 0 mls/hr CONT PRN 07/17/19 05:15 07/17/19 05:45 Rocuronium [place] (Zemuron) 50 mg 1X ONCE 07/17/19 04:45 07/17/19 04:46 DC 07/17/19 04:44 Sodium Chloride 500 ml @ 500 mls/hr 1X PRN PRN 07/17/19 11:00 Ticagrelor (Brilinta) 90 mg 1X ONCE 07/19/19 17:00 07/19/19 17:07 DC 07/19/19 17:28 Vancomycin HCl (Vanco Per Pharmacy) 1 each PRN DAILY PRN 07/17/19 06:00 07/17/19 10:41 DC 07/17/19 06:43 Vancomycin HCl (Vancomycin Trough Level) 1 each 1X ONCE 07/19/19 06:00 07/19/19 06:01 Cancel Vancomycin HCl 1.75 gm/Sodium Chloride 500 ml @ 250 mls/hr Q24H 07/18/19 06:30 07/17/19 10:38 DC Vancomycin HCl 2 gm/Sodium Chloride 500 ml @ 250 mls/hr 1X ONCE 07/17/19 06:00 07/17/19 07:59 DC 07/17/19 06:15 Vecuronium [place] (Norcuron Bolus) 20 mg STK-MED ONCE 07/18/19 12:00 07/19/19 08:48 DC Labs: Lab Laboratory Tests Test 07/19/19 09:20 07/19/19 11:21 07/19/19 17:49 07/19/19 23:56 O2 Saturation 97 % (92-99) Arterial Blood pH 7.41 (7.35-7.45) Arterial Blood pCO2 at Patient Temp 46 mmHg (35-46) Arterial Blood pO2 at Patient Temp 101 mmHg (65-108) Arterial Blood HCO3 29 mmol/L (21-28) Arterial Blood Base Excess 3 mmol/L (-3-3) FiO2 60% vent Glucose (Fingerstick) 160 mg/dL (70-99) 129 mg/dL (70-99) 145 mg/dL (70-99) Test 07/20/19 05:00 07/20/19 05:25 White Blood Count 7.7 x10^3/uL (4.0-11.0) Red Blood Count 4.59 x10^6/uL (4.30-5.70) Hemoglobin 13.2 g/dL (13.0-17.5) Hematocrit 40.7 % (39.0-53.0) Mean Corpuscular Volume 89 fL (79-100) Mean Corpuscular Hemoglobin 29 pg (25-35) Mean Corpuscular Hemoglobin Concent 33 g/dL (31-37) Red Cell Distribution Width 15.9 % (11.5-14.5) Platelet Count 117 x10^3/uL (140-400) Neutrophils (%) (Auto) 76 % (31-73) Lymphocytes (%) (Auto) 13 % (24-48) Monocytes (%) (Auto) 9 % (0-9) Eosinophils (%) (Auto) 1 % (0-3) Basophils (%) (Auto) 1 % (0-3) Neutrophils # (Auto) 5.9 x10^3/uL (1.8-7.7) Lymphocytes # (Auto) 1.0 x10^3/uL (1.0-4.8) Monocytes # (Auto) 0.7 x10^3/uL (0.0-1.1) Eosinophils # (Auto) 0.1 x10^3/uL (0.0-0.7) Basophils # (Auto) 0.1 x10^3/uL (0.0-0.2) Sodium Level 146 mmol/L (136-145) Potassium Level 3.7 mmol/L (3.5-5.1) Chloride Level 108 mmol/L (98-107) Carbon Dioxide Level 31 mmol/L (21-32) Anion Gap 7 (6-14) Blood Urea Nitrogen 58 mg/dL (8-26) Creatinine 2.7 mg/dL (0.7-1.3) Estimated GFR (Cockcroft-Gault) 23.3 Glucose Level 128 mg/dL (70-99) Calcium Level 7.7 mg/dL (8.5-10.1) Magnesium Level 2.0 mg/dL (1.8-2.4) Glucose (Fingerstick) 121 mg/dL (70-99) Objective: Assessment: 1. Sepsis. 2. Leukocytosis. 3. Lactic acidosis. 4. Acute hypoxic respiratory failure, status post intubation. Bilateral pulmonary infiltrates 5. Congestive heart failure. s/p VT arrest 07/17 s/p PCI with stent placement 6. Cardiomyopathy. 7. DONTAE on Chronic kidney disease. 8. Gastroesophageal reflux disease. 9. On amiodarone. 10. COVID neg Plan: Plan of Care Continues Donna TRUJILLO Zyvox Status post 1 dose of vancomycin f/u cult and labs in am cont supportive care Critically ill d/w MARGRET Smith MD July 20, 2019 08:24
[2019-07-20] MEDS: ALPRAZolam 0.5 MG TABLET FT SCH ×2 (09:00→20:55)
[2019-07-20] MEDS: AMIODARONE HCL 200 MG TABLET. PO SCH ×2 (09:00→11:38)
[2019-07-20] MEDS: FUROSEMIDE 40 MG/4 ML VIAL. IVP SCH (09:00)
[2019-07-20 09:24] LABS: BASE EXCESS ABG 4 mmol/L (-3-3); HCO3 ABG 28 mmol/L (21-28); PCO2 ABG 40 mmHg (35-46); PO2 ABG 75 mmHg (65-108); SAT O2 ABG 95 % (92-99)
[2019-07-20] MEDS ORDERED: MAGNESIUM SULFATE 1GM 100 ML IV ONE ×2 (09:45)
[2019-07-20] MEDS ORDERED: AMIODARONE 450 MG in IV DEXTROSE 5% 250 ML IV PRN (10:00)
[2019-07-20] MEDS ORDERED: LIDOCAINE 2% 100 MG/5 ML SYRINGE. IV ONE (10:00)
[2019-07-20] MEDS ORDERED: LIDOCAINE 2GM/D5W 500ML PREMIX 500 ML IV PRN (10:00)
--- NOTE | 2019-07-20 10:07 | NUR ---
SS following up with discharge planning. SS reviewed pt chart and discussed with pt RN. Pt COVID19 negative. Pt transferred to CVICU. Pt coded three times this morning. Pt remains on the vent at this time. SS will continue to follow for discharge planning.
[2019-07-20] MEDS: TICAGRELOR 90 MG TABLET. PO SCH ×2 (10:18→21:07)
[2019-07-20] MEDS: ASPIRIN CHEWABLE 81 MG TABLET. PO SCH (10:18)
[2019-07-20] MEDS: LANSOPRAZOLE 30 MG TAB.RAP.DR FT SCH (10:18)
[2019-07-20] MEDS: APIXABAN 5 MG TABLET. FT SCH ×2 (10:18→21:07)
[2019-07-20 10:41] LABS: FIO2 ABG 40% vent
--- NOTE | 2019-07-20 10:57 | EKG ---
[facility] [address] [place] [address] Test Date: 2019-07-20 Test Time: 10:53:10 Pat Name: MALKA THOMPSON Department: Room: 267 1 Gender: M Burr Grinder: : 1945 Requested By: VENU YODER Order Number: [id number] Reading MD: Venu Yoder MD Measurements Intervals [place] Rate: 79 P: NC: QRS: -28 QRSD: 96 T: 182 QT: 434 QTc: 499 Interpretive Statements SR PAC'S Electronically Signed On 07-20-2019 11:24:33 CDT by Venu Yoder MD
--- NOTE | 2019-07-20 11:06 | CARD ---
MR#: [id number] Date of Study: 07/20/2019 Ordering Physician: DEVIN GLOVER, Referring Physician: DEVIN GLOVER, Tech: Cynthia Summers TESHA APPROVED REPORT EXAM: LIMITED Two-dimensional echocardiogram Other Information Quality : Fair INDICATION LV Function:Systolic LEFT VENTRICLE The Left Ventricle is mildly dilated. There is borderline to mild concentric left ventricular hypertr ophy. Left ventricle systolic function is mildly impaired. The Ejection Fraction is 40-45%. Septal mo tion consistent with conduction abnormality. Mild global hypokinesis. GREAT VESSELS Not well visualized. PERICARDIAL EFFUSION There is no evidence of significant pericardial effusion. Critical Notification Critical Value: No <Conclusion> Left ventricle systolic function is mildly impaired. The Ejection Fraction is 40-45%. Septal motion consistent with conduction abnormality. Mild global hypokinesis. Technically difficult study. Limited study for EF only. Signed by : Cb Barrera, Electronically Approved : 07/20/2019 11:06:13
--- NOTE | 2019-07-20 11:10 | PDOC ---
PROGRESS NOTES Subjective Subjective had 2 codes today due to VT cardiac arrest currently in NSR. currently intubated on iv milrinone and iv levophed and iv lidocaine. lab reviewed. potassium 3.7 and magniesum 2.0 and bun 58 and creatinine 2.7. cxr report reviewed. discussed with his nurse. Objective Objective Vital Signs Date Time Temp Pulse Resp B/P (MAP) Pulse Ox O2 Delivery O2 Flow Rate FiO2 07/20/19 10:11 73 75/36 07/20/19 09:20 90 Ventilator 07/20/19 08:00 99.8 16 99.8 07/18/19 03:49 15.0 Intake and Output 07/20/19 07:00 Intake Total 2148.37 ml Output Total 2570 ml Balance -421.63 ml Intake IV Total 2148.37 ml Tube Feeding 0 ml Output Urine Total 1270 ml Gastric Drainage Total 1300 ml Physical Exam Abdomen: Soft, Other (decreased bowel sounds) Heart: Normal S1, Normal S2, No murmurs Extremities: Other (trace edema legs) General: Alert HEENT: Atraumatic Lungs: Other (clear anteriorly) Neuro: Other (sedated) Psych/Mental Status: Other (sedated) Skin: No rashes Assessment Assessment Problems1. Acute pulmonary edema. compensated 2. Acute on chronic systolic congestive heart failure.compensated 3. Severe cardiomyopathy with left ventricular ejection fraction 10-15%. 4. Acute hypoxic and hypercarbic respiratory failure, on the ventilator. 5. Paroxysmal atrial fibrillation, currently a fib RVR 6. sepsis with shock, maintained on pressor 7. acute kidney injury on chronic kidney disease stage 3. 8. Gastroesophageal reflux disease. 9. Leukocytosis resolved bilateral lung infiltrates. suspect pneumonia hypernatremia mild hypokalemia resolved hypomagnesemia resolved VT cardiac arrest 07/17 and again 07/19 PCI RCA 07/17 Medical Problems: (1) Acute exacerbation of CHF (congestive heart failure) Status: Acute (2) Acute on chronic renal insufficiency Status: Acute (3) Elevated troponin I level Status: Acute (4) Septic shock Status: Acute (5) Suspected COVID-19 virus infection Status: Acute Plan Plan of Care continue ventilator support continue iv milrinone and levophed and lidocaine to start TPN later today continue zosyn continue prevacid continue aspirin and brillinta and eliquis kcl ordered lab tomorrow Comment Review of Relevant I have reviewed the following items juan (where applicable) has been applied. Labs Laboratory Tests Test 07/18/19 12:05 07/18/19 17:52 07/19/19 00:17 07/19/19 05:00 Glucose (Fingerstick) 199 mg/dL (70-99) 183 mg/dL (70-99) 153 mg/dL (70-99) White Blood Count 12.9 x10^3/uL (4.0-11.0) Red Blood Count 5.24 x10^6/uL (4.30-5.70) Hemoglobin 15.1 g/dL (13.0-17.5) Hematocrit 45.8 % (39.0-53.0) Mean Corpuscular Volume 88 fL (79-100) Mean Corpuscular Hemoglobin 29 pg (25-35) Mean Corpuscular Hemoglobin Concent 33 g/dL (31-37) Red Cell Distribution Width 16.7 % (11.5-14.5) Platelet Count 190 x10^3/uL (140-400) Neutrophils (%) (Auto) 64 % (31-73) Lymphocytes (%) (Auto) 20 % (24-48) Monocytes (%) (Auto) 15 % (0-9) Eosinophils (%) (Auto) 0 % (0-3) Basophils (%) (Auto) 1 % (0-3) Neutrophils # (Auto) 8.3 x10^3/uL (1.8-7.7) Lymphocytes # (Auto) 2.5 x10^3/uL (1.0-4.8) Monocytes # (Auto) 1.9 x10^3/uL (0.0-1.1) Eosinophils # (Auto) 0.0 x10^3/uL (0.0-0.7) Basophils # (Auto) 0.1 x10^3/uL (0.0-0.2) Segmented Neutrophils % 72 % (35-66) Lymphocytes % 18 % (24-48) Monocytes % 10 % (0-10) Platelet Estimate Adequate (ADEQUATE) Large Platelets Occ Sodium Level 147 mmol/L (136-145) Potassium Level 3.4 mmol/L (3.5-5.1) Chloride Level 107 mmol/L (98-107) Carbon Dioxide Level 29 mmol/L (21-32) Anion Gap 11 (6-14) Blood Urea Nitrogen 59 mg/dL (8-26) Creatinine 3.3 mg/dL (0.7-1.3) Estimated GFR (Cockcroft-Gault) 18.5 Glucose Level 150 mg/dL (70-99) Calcium Level 7.7 mg/dL (8.5-10.1) Magnesium Level 2.1 mg/dL (1.8-2.4) Test 07/19/19 05:19 07/19/19 09:20 07/19/19 11:21 07/19/19 17:49 Glucose (Fingerstick) 150 mg/dL (70-99) 160 mg/dL (70-99) 129 mg/dL (70-99) O2 Saturation 97 % (92-99) Arterial Blood pH 7.41 (7.35-7.45) Arterial Blood pCO2 at Patient Temp 46 mmHg (35-46) Arterial Blood pO2 at Patient Temp 101 mmHg (65-108) Arterial Blood HCO3 29 mmol/L (21-28) Arterial Blood Base Excess 3 mmol/L (-3-3) FiO2 60% vent Test 07/19/19 23:56 07/20/19 05:00 07/20/19 05:25 07/20/19 08:00 Glucose (Fingerstick) 145 mg/dL (70-99) 121 mg/dL (70-99) White Blood Count 7.7 x10^3/uL (4.0-11.0) Red Blood Count 4.59 x10^6/uL (4.30-5.70) Hemoglobin 13.2 g/dL (13.0-17.5) Hematocrit 40.7 % (39.0-53.0) Mean Corpuscular Volume 89 fL (79-100) Mean Corpuscular Hemoglobin 29 pg (25-35) Mean Corpuscular Hemoglobin Concent 33 g/dL (31-37) Red Cell Distribution Width 15.9 % (11.5-14.5) Platelet Count 117 x10^3/uL (140-400) Neutrophils (%) (Auto) 76 % (31-73) Lymphocytes (%) (Auto) 13 % (24-48) Monocytes (%) (Auto) 9 % (0-9) Eosinophils (%) (Auto) 1 % (0-3) Basophils (%) (Auto) 1 % (0-3) Neutrophils # (Auto) 5.9 x10^3/uL (1.8-7.7) Lymphocytes # (Auto) 1.0 x10^3/uL (1.0-4.8) Monocytes # (Auto) 0.7 x10^3/uL (0.0-1.1) Eosinophils # (Auto) 0.1 x10^3/uL (0.0-0.7) Basophils # (Auto) 0.1 x10^3/uL (0.0-0.2) Sodium Level 146 mmol/L (136-145) Potassium Level 3.7 mmol/L (3.5-5.1) Chloride Level 108 mmol/L (98-107) Carbon Dioxide Level 31 mmol/L (21-32) Anion Gap 7 (6-14) Blood Urea Nitrogen 58 mg/dL (8-26) Creatinine 2.7 mg/dL (0.7-1.3) Estimated GFR (Cockcroft-Gault) 23.3 Glucose Level 128 mg/dL (70-99) Calcium Level 7.7 mg/dL (8.5-10.1) Magnesium Level 2.0 mg/dL (1.8-2.4) O2 Saturation 95 % (92-99) Arterial Blood pH 7.46 (7.35-7.45) Arterial Blood pCO2 at Patient Temp 40 mmHg (35-46) Arterial Blood pO2 at Patient Temp 75 mmHg (65-108) Arterial Blood HCO3 28 mmol/L (21-28) Arterial Blood Base Excess 4 mmol/L (-3-3) FiO2 40% vent Laboratory Tests Test 07/19/19 11:21 07/19/19 17:49 07/19/19 23:56 07/20/19 05:00 Glucose (Fingerstick) 160 mg/dL (70-99) 129 mg/dL (70-99) 145 mg/dL (70-99) White Blood Count 7.7 x10^3/uL (4.0-11.0) Red Blood Count 4.59 x10^6/uL (4.30-5.70) Hemoglobin 13.2 g/dL (13.0-17.5) Hematocrit 40.7 % (39.0-53.0) Mean Corpuscular Volume 89 fL (79-100) Mean Corpuscular Hemoglobin 29 pg (25-35) Mean Corpuscular Hemoglobin Concent 33 g/dL (31-37) Red Cell Distribution Width 15.9 % (11.5-14.5) Platelet Count 117 x10^3/uL (140-400) Neutrophils (%) (Auto) 76 % (31-73) Lymphocytes (%) (Auto) 13 % (24-48) Monocytes (%) (Auto) 9 % (0-9) Eosinophils (%) (Auto) 1 % (0-3) Basophils (%) (Auto) 1 % (0-3) Neutrophils # (Auto) 5.9 x10^3/uL (1.8-7.7) Lymphocytes # (Auto) 1.0 x10^3/uL (1.0-4.8) Monocytes # (Auto) 0.7 x10^3/uL (0.0-1.1) Eosinophils # (Auto) 0.1 x10^3/uL (0.0-0.7) Basophils # (Auto) 0.1 x10^3/uL (0.0-0.2) Sodium Level 146 mmol/L (136-145) Potassium Level 3.7 mmol/L (3.5-5.1) Chloride Level 108 mmol/L (98-107) Carbon Dioxide Level 31 mmol/L (21-32) Anion Gap 7 (6-14) Blood Urea Nitrogen 58 mg/dL (8-26) Creatinine 2.7 mg/dL (0.7-1.3) Estimated GFR (Cockcroft-Gault) 23.3 Glucose Level 128 mg/dL (70-99) Calcium Level 7.7 mg/dL (8.5-10.1) Magnesium Level 2.0 mg/dL (1.8-2.4) Test 07/20/19 05:25 07/20/19 08:00 Glucose (Fingerstick) 121 mg/dL (70-99) O2 Saturation 95 % (92-99) Arterial Blood pH 7.46 (7.35-7.45) Arterial Blood pCO2 at Patient Temp 40 mmHg (35-46) Arterial Blood pO2 at Patient Temp 75 mmHg (65-108) Arterial Blood HCO3 28 mmol/L (21-28) Arterial Blood Base Excess 4 mmol/L (-3-3) FiO2 40% vent Microbiology 07/17/19 Urine Culture - Final, Complete 07/17/19 Urine Culture Result 1 (BOYD) - Final, Complete 07/17/19 Blood Culture - Preliminary, Resulted NO GROWTH AFTER 3 DAYS 07/17/19 Nose/Throat Culture - Final, Complete 07/17/19 - Final, Complete Medications Current Medications Nitroglycerin (Nitrostat) 0.4 mg STK-MED ONCE SL ; Start 07/17/19 at 04:28; Stop 07/17/19 at 04:28; Status DC Nitroglycerin (Nitrostat) 0.4 mg 1X ONCE SL Last administered on 07/17/19at 04:29; Start 07/17/19 at 04:30; Stop 07/17/19 at 04:43; Status DC Nitroglycerin/ Dextrose 250 ml @ 0 mls/hr 1X ONCE IV Last administered on 07/17/19at 04:47; Start 07/17/19 at 04:45; Stop 07/17/19 at 04:46; Status DC Rocuronium [place] (Zemuron) 50 mg 1X ONCE IV Last administered on 07/17/19at 04:44; Start 07/17/19 at 04:45; Stop 07/17/19 at 04:46; Status DC Etomidate (Amidate) 20 mg 1X ONCE IV Last administered on 07/17/19at 04:43; Start 07/17/19 at 04:45; Stop 07/17/19 at 04:46; Status DC Propofol 100 ml @ 0 mls/hr CONT PRN IV SEE PROTOCOL Last administered on 07/17/19at 05:45; Start 07/17/19 at 05:15 Aspirin (Aspirin Rectal Supp) 300 mg 1X ONCE NV Last administered on 07/17/19at 06:01; Start 07/17/19 at 05:45; Stop 07/17/19 at 05:46; Status DC Bumetanide (Bumex) 1 mg 1X ONCE IV Last administered on 07/17/19at 06:00; Start 07/17/19 at 06:00; Stop 07/17/19 at 06:01; Status DC Piperacillin Sod/ Tazobactam Sod 4.5 gm/Sodium Chloride 100 ml @ 200 mls/hr 1X ONCE IV Last administered on 07/17/19at 11:14; Start 07/17/19 at 06:00; Stop 07/17/19 at 06:29; Status DC Vancomycin HCl (Vanco Per Pharmacy) 1 each PRN DAILY PRN MC SEE COMMENTS Last administered on 07/17/19at 06:43; Start 07/17/19 at 06:00; Stop 07/17/19 at 10:41; Status DC Vancomycin HCl 2 gm/Sodium Chloride 500 ml @ 250 mls/hr 1X ONCE IV Last administered on 07/17/19at 06:15; Start 07/17/19 at 06:00; Stop 07/17/19 at 07:59; Status DC Ondansetron HCl (Zofran) 4 mg PRN Q8HRS PRN IV NAUSEA/VOMITING; Start 07/17/19 at 06:00; Stop 07/18/19 at 05:59; Status DC Norepinephrine Bitartrate 8 mg/ Dextrose 258 ml @ 0 mls/hr CONT PRN IV SEE I/O RECORD Last administered on 07/17/19at 21:52; Start 07/17/19 at 06:30; Stop 07/18/19 at 13:40; Status DC Vancomycin HCl 1.75 gm/Sodium Chloride 500 ml @ 250 mls/hr Q24H IV ; Start 07/18/19 at 06:30; Stop 07/17/19 at 10:38; Status DC Vancomycin HCl (Vancomycin Trough Level) 1 each 1X ONCE MC ; Start 07/19/19 at 06:00; Stop 07/19/19 at 06:01; Status Cancel Morphine Sulfate (Morphine Sulfate) 6 mg 1X ONCE IV Last administered on 07/17/19at 07:08; Start 07/17/19 at 07:15; Stop 07/17/19 at 07:16; Status DC Midazolam HCl 100 ml @ 0 mls/hr CONT PRN IV SEE PROTOCOL Last administered on 07/20/19at 08:11; Start 07/17/19 at 07:15 Morphine Sulfate (Morphine Sulfate) 4 mg PRN Q1HR PRN IV SEE COMMENTS.; Start 07/17/19 at 08:00; Stop 07/17/19 at 10:38; Status DC Heparin Sodium (Porcine) (Heparin Sodium) 5,000 unit Q12HR SQ ; Start 07/17/19 at 21:00; Stop 07/17/19 at 10:38; Status DC Amiodarone HCl (Cordarone) 200 mg DAILY PO Last administered on 07/19/19at 08:47; Start 07/18/19 at 09:00 Metolazone (Zaroxolyn) 2.5 mg QODAY PO ; Start 07/19/19 at 09:00; Stop 07/18/19 at 10:36; Status DC Potassium Chloride (Klor-Con) 20 meq BIDWMEALS PO Last administered on 07/17/19at 16:34; Start 07/17/19 at 17:00; Stop 07/18/19 at 10:36; Status DC Furosemide (Lasix) 40 mg BID92 IVP Last administered on 07/18/19at 08:03; Start 07/17/19 at 14:00 Morphine Sulfate (Morphine Sulfate) 2 mg PRN Q4HRS PRN IV SEE COMMENTS.; Start 07/17/19 at 10:30; Status Cancel Apixaban (Eliquis) 5 mg BID FT Last administered on 07/20/19at 10:18; Start 07/17/19 at 21:00 Insulin Human Lispro (HumaLOG) 0-6 UNITS Q6HRS SQ ; Start 07/17/19 at 12:00 Lansoprazole (Prevacid) 30 mg DAILY FT Last administered on 07/20/19at 10:18; Start 07/18/19 at 09:00 Acetaminophen (Tylenol) 650 mg PRN Q6HRS PRN FT MILD PAIN / TEMP > 100.3'F; Start 07/17/19 at 10:30 Alprazolam (Xanax) 1 mg BID FT ; Start 07/17/19 at 21:00 Magnesium Hydroxide (Milk Of Magnesia) 2,400 mg PRN DAILY PRN FT CONSTIPATION; Start 07/17/19 at 10:30 Dexmedetomidine HCl 400 mcg/ Sodium Chloride 100 ml @ 0 mls/hr CONT PRN IV PER PROTOCOL Last administered on 07/20/19at 06:01; Start 07/17/19 at 11:00 Sodium Chloride 500 ml @ 500 mls/hr 1X PRN PRN IV SEE COMMENTS; Start 07/17/19 at 11:00 Atropine Sulfate (ATROPINE 0.5mg SYRINGE) 0.5 mg PRN Q5MIN PRN IV SEE COMMENTS; Start 07/17/19 at 11:00 Morphine Sulfate (Morphine Sulfate) 2 mg PRN Q1HR PRN IV SEE COMMENTS. Last administered on 07/17/19at 13:37; Start 07/17/19 at 11:15 Morphine Sulfate (Morphine Sulfate) 4 mg PRN Q1HR PRN IV SEE COMMENTS. Last administered on 07/18/19at 13:53; Start 07/17/19 at 11:15 Piperacillin Sod/ Tazobactam Sod 2.25 gm/Sodium Chloride 50 ml @ 100 mls/hr Q6HRS IV Last administered on 07/20/19at 06:00; Start 07/17/19 at 18:00 Magnesium Sulfate 50 ml @ 25 mls/hr 1X ONCE IV Last administered on 07/18/19at 08:04; Start 07/18/19 at 07:15; Stop 07/18/19 at 09:14; Status DC Milrinone Lactate/ Dextrose 100 ml @ 0 mls/hr CONT PRN IV SEE I/O RECORD Last administered on 07/20/19at 02:37; Start 07/18/19 at 07:15 Linezolid/Dextrose 300 ml @ 300 mls/hr Q12HR IV Last administered on 07/19/19at 21:29; Start 07/18/19 at 09:00; Stop 07/20/19 at 08:25; Status DC Info (Anti-Coagulation Monitoring By Pharmacy) 1 each PRN DAILY PRN MC SEE COMMENTS Last administered on 07/19/19at 15:26; Start 07/18/19 at 08:00 Vecuronium [place] (Norcuron Bolus) 10 mg STK-MED ONCE IV ; Start 07/18/19 at 09:12; Stop 07/18/19 at 09:12; Status DC Potassium Chloride/Water 100 ml @ 100 mls/hr 1X ONCE IV Last administered on 07/18/19at 10:04; Start 07/18/19 at 09:45; Stop 07/18/19 at 10:44; Status DC Magnesium Sulfate 50 ml @ 25 mls/hr 1X ONCE IV Last administered on 07/18/19at 10:03; Start 07/18/19 at 09:45; Stop 07/18/19 at 11:44; Status DC Norepinephrine Bitartrate 32 mg/ Dextrose 282 ml @ 0 mls/hr CONT PRN IV SEE I/O RECORD Last administered on 07/19/19at 10:39; Start 07/18/19 at 11:15 Morphine Sulfate 30 ml @ 0 mls/hr CONT PRN PRN IV PER PROTOCOL Last administered on 07/20/19at 03:48; Start 07/18/19 at 12:45 Lidocaine HCl (Xylocaine-Mpf 1% 2ml Vial) 2 ml STK-MED ONCE .ROUTE ; Start 07/18/19 at 13:05; Stop 07/18/19 at 13:05; Status DC Iodixanol (Visipaque 320) 100 ml STK-MED ONCE .ROUTE ; Start 07/18/19 at 13:05; Stop 07/18/19 at 13:06; Status DC Heparin Sodium/ Sodium Chloride 1,500 ml @ As Directed STK-MED ONCE .ROUTE ; Start 07/18/19 at 13:05; Stop 07/18/19 at 13:06; Status DC Vecuronium [place] (Norcuron Bolus) 10 mg STK-MED ONCE IV ; Start 07/18/19 at 13:49; Stop 07/18/19 at 13:49; Status DC Vecuronium [place] (Norcuron Bolus) 6 mg PRN Q4HRS PRN IV ANXIETY / AGITATION; Start 07/18/19 at 14:00 Epinephrine HCl 5 mg/Sodium Chloride 255 ml @ 32.926 mls/ hr CONT PRN IV SEE I/O RECORD; Start 07/18/19 at 14:00 Lidocaine HCl (Lidocaine 1% 20ml Vial) 20 ml STK-MED ONCE .ROUTE ; Start 07/18/19 at 14:11; Stop 07/18/19 at 14:11; Status DC Heparin Sodium (Porcine) (Heparin Sodium) 10,000 unit STK-MED ONCE .ROUTE ; Start 07/18/19 at 14:27; Stop 07/18/19 at 14:28; Status DC Heparin Sodium/ Sodium Chloride (HEPARIN for ARTERIAL LINE FLUSH) 1,000 unit 1X ONCE IART Last administered on 07/18/19at 14:45; Start 07/18/19 at 14:45; Stop 07/18/19 at 14:52; Status DC Heparin Sodium/ Sodium Chloride (HEPARIN for ARTERIAL LINE FLUSH) 1,000 unit 1X ONCE IART Last administered on 07/18/19at 14:45; Start 07/18/19 at 14:45; Stop 07/18/19 at 14:52; Status DC Iodixanol (Visipaque 320) 100 ml 1X ONCE IART Last administered on 07/18/19at 14:45; Start 07/18/19 at 14:45; Stop 07/18/19 at 14:52; Status DC Heparin Sodium (Porcine) (Heparin Sodium) 7,000 unit 1X ONCE IV Last administered on 07/18/19at 14:45; Start 07/18/19 at 14:45; Stop 07/18/19 at 14:52; Status DC Lidocaine HCl (Lidocaine 1% 20ml Vial) 20 ml 1X ONCE INJ Last administered on 07/18/19at 14:45; Start 07/18/19 at 14:45; Stop 07/18/19 at 14:52; Status DC Heparin Sodium/ Sodium Chloride 500 ml @ As Directed STK-MED ONCE .ROUTE ; Start 07/18/19 at 15:11; Stop 07/18/19 at 15:11; Status DC Ticagrelor (Brilinta) 180 mg 1X ONCE PO Last administered on 07/18/19at 16:08; Start 07/18/19 at 16:00; Stop 07/18/19 at 16:01; Status DC Digoxin (Lanoxin) 250 mcg 1X ONCE IV ; Start 07/19/19 at 06:15; Stop 07/19/19 at 06:16; Status Cancel Digoxin (Lanoxin) 250 mcg 1X ONCE IV Last administered on 07/19/19at 05:15; Start 07/19/19 at 05:15; Stop 07/19/19 at 06:11; Status DC Digoxin (Lanoxin) 250 mcg 1X ONCE IV Last administered on 07/19/19at 08:48; Start 07/19/19 at 09:00; Stop 07/19/19 at 09:01; Status DC Digoxin (Lanoxin) 250 mcg 1X ONCE IV Last administered on 07/19/19at 04:15; Start 07/19/19 at 04:10; Stop 07/19/19 at 06:15; Status DC Vecuronium [place] (Norcuron Bolus) 20 mg STK-MED ONCE IV ; Start 07/18/19 at 12:00; Stop 07/19/19 at 08:48; Status DC Potassium Chloride/Water 100 ml @ 100 mls/hr 1X ONCE IV Last administered on 07/19/19at 12:13; Start 07/19/19 at 11:45; Stop 07/19/19 at 12:44; Status DC Amiodarone HCl 150 mg/Dextrose 103 ml @ 618 mls/hr 1X ONCE IV Last administered on 07/19/19at 12:15; Start 07/19/19 at 12:00; Stop 07/19/19 at 12:09; Status DC Metoprolol Tartrate (Lopressor) 12.5 mg Q6HRS PO Last administered on 07/20/19at 06:00; Start 07/19/19 at 12:00 Amiodarone HCl (Cordarone) 300 mg STK-MED ONCE .ROUTE ; Start 07/18/19 at 16:08; Stop 07/19/19 at 16:08; Status DC Epinephrine HCl (EPINEPHrine SYRINGE) 4 mg STK-MED ONCE .ROUTE ; Start 07/18/19 at 16:08; Stop 07/19/19 at 16:08; Status DC Aspirin (Aspirin Chewable) 81 mg 1X ONCE PO Last administered on 07/19/19at 1 7:28; Start 07/19/19 at 17:00; Stop 07/19/19 at 17:06; Status DC Aspirin (Aspirin Chewable) 81 mg DAILYWBKFT PO Last administered on 07/20/19at 10:18; Start 07/20/19 at 08:00 Ticagrelor (Brilinta) 90 mg BID PO Last administered on 07/20/19at 10:18; Start 07/20/19 at 09:00 Ticagrelor (Brilinta) 90 mg 1X ONCE PO Last administered on 07/19/19at 17:28; Start 07/19/19 at 17:00; Stop 07/19/19 at 17:07; Status DC Info (Tpn Per Pharmacy) 1 each PRN DAILY PRN MC SEE COMMENTS; Start 07/19/19 at 17:00 Magnesium Sulfate/ Dextrose 100 ml @ 100 mls/hr 1X ONCE IV Last administered on 07/20/19at 09:40; Start 07/20/19 at 09:45; Stop 07/20/19 at 10:44; Status DC Magnesium Sulfate/ Dextrose 100 ml @ 100 mls/hr 1X ONCE IV ; Start 07/20/19 at 09:45; Stop 07/20/19 at 10:44; Status DC Potassium Chloride/Water 100 ml @ 100 mls/hr Q1H IV ; Start 07/20/19 at 09:45; Stop 07/20/19 at 13:44 Amiodarone HCl 450 mg/Dextrose 259 ml @ 0 mls/hr CONT PRN IV SEE I/O RECORD; Start 07/20/19 at 10:00; Status Cancel Lidocaine HCl (Lidocaine HCl 2% Abboject) 80 mg 1X ONCE IV Last administered on 07/20/19at 10:11; Start 07/20/19 at 10:00; Stop 07/20/19 at 10:03; Status DC Lidocaine HCl/ Dextrose 500 ml @ 0 mls/hr CONT PRN IV SEE I/O RECORD Last administered on 07/20/19at 10:15; Start 07/20/19 at 10:00 Active Scripts Active Toprol XL (Metoprolol Succinate) 50 Mg Tab.er.24h 50 Mg PO DAILY Metolazone 2.5 Mg Tablet 2.5 Mg PO QODAY Furosemide 40 Mg Tablet 40 Mg PO [id number] Klor-Con M20 (Potassium Chloride) 20 Meq Tab.er.prt 20 Meq PO BIDWMEALS Amiodarone Hcl 200 Mg Tablet 200 Mg PO DAILY Eliquis (Apixaban) 5 Mg Tablet 5 Mg PO BID Reported Acetaminophen 325 Mg Tablet 325 Mg PO Q6HRS Dicyclomine Hcl 10 Mg Capsule 1 Cap PO PRN TID PRN Nexium Capsule (Esomeprazole Magnesium) 40 Mg Capsule.dr 40 Mg PO DAILYAC Oxycodone Hcl Immed.release (Oxycodone Hcl) 15 Mg Tablet 15 Mg PO PRN Q12HR PRN Alprazolam 1 Mg Tablet 1 Tab PO BID Vitals/I & O Vital Sign - Last 24 Hours 07/19/19 07/19/19 07/19/19 07/19/19 11:44 12:00 12:00 12:00 Pulse 145 Resp 18 B/P (MAP) 131/76 (94) Pulse Ox 98 98 O2 Delivery Ventilator Mechanical Ventilator Ventilator 07/19/19 07/19/19 07/19/19 07/19/19 12:15 12:35 12:45 12:50 Pulse 131 102 B/P (MAP) 160/68 162/79 126/72 (90) Pulse Ox 98 O2 Delivery Ventilator 5/20/20 5/20/20 5/20/20 5/20/20 13:00 13:50 14:00 14:30 Temp 99.9 99.9 Pulse 88 97 Resp 18 16 B/P (MAP) 134/62 (86) 82/46 (58) 146/67 (93) Pulse Ox 98 99 O2 Delivery Ventilator Ventilator 5/20/20 5/20/20 5/20/20 5/20/20 15:00 15:52 16:10 16:10 Pulse 93 Resp 16 B/P (MAP) 158/69 (98) Pulse Ox 99 99 O2 Delivery Ventilator Ventilator Mechanical Ventilator 5/20/20 5/20/20 5/20/20 5/20/20 16:10 16:38 17:00 17:35 Pulse 83 90 90 95 Resp 16 B/P (MAP) 126/65 (85) 148/68 (94) 141/63 (89) 122/62 Pulse Ox 99 99 O2 Delivery Ventilator Ventilator 5/20/20 5/20/20 5/20/20 5/20/20 18:07 18:26 20:00 20:00 Pulse 87 84 89 B/P (MAP) 166/64 (98) 116/56 (76) 166/66 (99) 166/66 (99) Pulse Ox 99 98 O2 Delivery Ventilator Ventilator Mechanical Ventilator 5/20/20 5/20/20 5/20/20 5/20/20 20:00 20:15 20:30 20:45 Temp 99.2 99.2 Pulse 89 86 86 86 Resp 16 16 16 16 B/P (MAP) 166/66 (99) 102/56 (71) 150/70 (96) 156/72 (100) Pulse Ox 99 97 97 97 O2 Delivery Ventilator Ventilator Ventilator Ventilator 5/20/20 5/20/20 5/20/20 5/20/20 21:00 21:15 21:25 21:30 Pulse 86 85 80 86 Resp 16 16 16 16 B/P (MAP) 124/56 (78) 139/66 (90) 71/45 (54) 164/70 (101) Pulse Ox 97 97 97 97 O2 Delivery Ventilator Ventilator Ventilator Ventilator 5/20/20 5/20/20 5/20/20 5/20/20 21:45 22:00 22:15 22:15 Pulse 82 84 83 Resp 16 16 16 B/P (MAP) 94/46 (62) 116/56 (76) 135/63 (87) Pulse Ox 97 98 98 97 O2 Delivery Ventilator Ventilator Ventilator Ventilator 07/19/19 07/19/19 07/19/19 07/20/19 22:30 23:00 23:59 00:00 Temp 100.4 100.4 Pulse 75 90 84 77 Resp 16 16 16 B/P (MAP) 98/56 (70) 93/44 (60) 135/54 135/54 (81) Pulse Ox 98 98 98 O2 Delivery Ventilator Ventilator Ventilator 07/20/19 07/20/19 07/20/19 07/20/19 00:00 00:00 00:30 01:00 Pulse 77 82 Resp 16 B/P (MAP) 135/54 (81) 94/50 (65) 121/53 (75) Pulse Ox 98 98 O2 Delivery Mechanical Ventilator Ventilator Ventilator 07/20/19 07/20/19 07/20/19 07/20/19 02:00 03:00 03:45 04:00 Pulse 70 74 74 Resp 16 16 B/P (MAP) 110/52 (71) 134/58 (83) 122/57 (78) 121/52 (75) Pulse Ox 98 99 O2 Delivery Ventilator Ventilator Mechanical Ventilator 07/20/19 07/20/19 07/20/19 07/20/19 04:00 04:30 05:00 06:00 Temp 99.7 99.7 Pulse 74 68 72 Resp 16 16 B/P (MAP) 122/57 (78) 116/56 (76) 112/55 Pulse Ox 97 98 99 O2 Delivery Ventilator Ventilator Ventilator 07/20/19 07/20/19 07/20/19 07/20/19 06:00 07:00 07:50 08:00 Temp 99.8 99.8 Pulse 80 78 64 Resp 16 16 16 B/P (MAP) 110/51 (70) 112/52 (72) 148/66 (93) Pulse Ox 99 96 97 98 O2 Delivery Ventilator Ventilator Ventilator Ventilator 07/20/19 07/20/19 07/20/19 07/20/19 08:00 08:00 09:20 10:11 Pulse 73 B/P (MAP) 75/36 Pulse Ox 90 O2 Delivery Mechanical Ventilator Ventilator Intake and Output 07/19/19 07/19/19 07/20/19 15:00 23:00 07:00 Intake Total 553 ml 922.37 ml 673 ml Output Total 1375 ml 880 ml 315 ml Balance -822 ml 42.37 ml 358 ml RICK CAROLINA MD July 20, 2019 11:10
--- NOTE | 2019-07-20 11:22 | PDOC ---
PULMONARY PROGRESS NOTES Subjective Remains on AC control 50% FiO2 5 of PEEP Currently on IV lidocaine, IV norepinephrine Vitals Vital Signs Date Time Temp Pulse Resp B/P (MAP) Pulse Ox O2 Delivery O2 Flow Rate FiO2 07/20/19 10:11 73 75/36 07/20/19 09:20 90 Ventilator 07/20/19 08:00 99.8 16 99.8 HEENT: Other Lungs: Clear Cardiovascular: S1, S2 Abdomen: Soft Extremities: Other (edema) Skin: Warm Labs Laboratory Tests Test 07/18/19 12:05 07/18/19 17:52 07/19/19 00:17 07/19/19 05:00 Glucose (Fingerstick) 199 mg/dL (70-99) 183 mg/dL (70-99) 153 mg/dL (70-99) White Blood Count 12.9 x10^3/uL (4.0-11.0) Red Blood Count 5.24 x10^6/uL (4.30-5.70) Hemoglobin 15.1 g/dL (13.0-17.5) Hematocrit 45.8 % (39.0-53.0) Mean Corpuscular Volume 88 fL (79-100) Mean Corpuscular Hemoglobin 29 pg (25-35) Mean Corpuscular Hemoglobin Concent 33 g/dL (31-37) Red Cell Distribution Width 16.7 % (11.5-14.5) Platelet Count 190 x10^3/uL (140-400) Neutrophils (%) (Auto) 64 % (31-73) Lymphocytes (%) (Auto) 20 % (24-48) Monocytes (%) (Auto) 15 % (0-9) Eosinophils (%) (Auto) 0 % (0-3) Basophils (%) (Auto) 1 % (0-3) Neutrophils # (Auto) 8.3 x10^3/uL (1.8-7.7) Lymphocytes # (Auto) 2.5 x10^3/uL (1.0-4.8) Monocytes # (Auto) 1.9 x10^3/uL (0.0-1.1) Eosinophils # (Auto) 0.0 x10^3/uL (0.0-0.7) Basophils # (Auto) 0.1 x10^3/uL (0.0-0.2) Segmented Neutrophils % 72 % (35-66) Lymphocytes % 18 % (24-48) Monocytes % 10 % (0-10) Platelet Estimate Adequate (ADEQUATE) Large Platelets Occ Sodium Level 147 mmol/L (136-145) Potassium Level 3.4 mmol/L (3.5-5.1) Chloride Level 107 mmol/L (98-107) Carbon Dioxide Level 29 mmol/L (21-32) Anion Gap 11 (6-14) Blood Urea Nitrogen 59 mg/dL (8-26) Creatinine 3.3 mg/dL (0.7-1.3) Estimated GFR (Cockcroft-Gault) 18.5 Glucose Level 150 mg/dL (70-99) Calcium Level 7.7 mg/dL (8.5-10.1) Magnesium Level 2.1 mg/dL (1.8-2.4) Test 07/19/19 05:19 07/19/19 09:20 07/19/19 11:21 07/19/19 17:49 Glucose (Fingerstick) 150 mg/dL (70-99) 160 mg/dL (70-99) 129 mg/dL (70-99) O2 Saturation 97 % (92-99) Arterial Blood pH 7.41 (7.35-7.45) Arterial Blood pCO2 at Patient Temp 46 mmHg (35-46) Arterial Blood pO2 at Patient Temp 101 mmHg (65-108) Arterial Blood HCO3 29 mmol/L (21-28) Arterial Blood Base Excess 3 mmol/L (-3-3) FiO2 60% vent Test 07/19/19 23:56 07/20/19 05:00 07/20/19 05:25 07/20/19 08:00 Glucose (Fingerstick) 145 mg/dL (70-99) 121 mg/dL (70-99) White Blood Count 7.7 x10^3/uL (4.0-11.0) Red Blood Count 4.59 x10^6/uL (4.30-5.70) Hemoglobin 13.2 g/dL (13.0-17.5) Hematocrit 40.7 % (39.0-53.0) Mean Corpuscular Volume 89 fL (79-100) Mean Corpuscular Hemoglobin 29 pg (25-35) Mean Corpuscular Hemoglobin Concent 33 g/dL (31-37) Red Cell Distribution Width 15.9 % (11.5-14.5) Platelet Count 117 x10^3/uL (140-400) Neutrophils (%) (Auto) 76 % (31-73) Lymphocytes (%) (Auto) 13 % (24-48) Monocytes (%) (Auto) 9 % (0-9) Eosinophils (%) (Auto) 1 % (0-3) Basophils (%) (Auto) 1 % (0-3) Neutrophils # (Auto) 5.9 x10^3/uL (1.8-7.7) Lymphocytes # (Auto) 1.0 x10^3/uL (1.0-4.8) Monocytes # (Auto) 0.7 x10^3/uL (0.0-1.1) Eosinophils # (Auto) 0.1 x10^3/uL (0.0-0.7) Basophils # (Auto) 0.1 x10^3/uL (0.0-0.2) Sodium Level 146 mmol/L (136-145) Potassium Level 3.7 mmol/L (3.5-5.1) Chloride Level 108 mmol/L (98-107) Carbon Dioxide Level 31 mmol/L (21-32) Anion Gap 7 (6-14) Blood Urea Nitrogen 58 mg/dL (8-26) Creatinine 2.7 mg/dL (0.7-1.3) Estimated GFR (Cockcroft-Gault) 23.3 Glucose Level 128 mg/dL (70-99) Calcium Level 7.7 mg/dL (8.5-10.1) Magnesium Level 2.0 mg/dL (1.8-2.4) O2 Saturation 95 % (92-99) Arterial Blood pH 7.46 (7.35-7.45) Arterial Blood pCO2 at Patient Temp 40 mmHg (35-46) Arterial Blood pO2 at Patient Temp 75 mmHg (65-108) Arterial Blood HCO3 28 mmol/L (21-28) Arterial Blood Base Excess 4 mmol/L (-3-3) FiO2 40% vent Laboratory Tests Test 07/19/19 17:49 07/19/19 23:56 07/20/19 05:00 07/20/19 05:25 Glucose (Fingerstick) 129 mg/dL (70-99) 145 mg/dL (70-99) 121 mg/dL (70-99) White Blood Count 7.7 x10^3/uL (4.0-11.0) Red Blood Count 4.59 x10^6/uL (4.30-5.70) Hemoglobin 13.2 g/dL (13.0-17.5) Hematocrit 40.7 % (39.0-53.0) Mean Corpuscular Volume 89 fL (79-100) Mean Corpuscular Hemoglobin 29 pg (25-35) Mean Corpuscular Hemoglobin Concent 33 g/dL (31-37) Red Cell Distribution Width 15.9 % (11.5-14.5) Platelet Count 117 x10^3/uL (140-400) Neutrophils (%) (Auto) 76 % (31-73) Lymphocytes (%) (Auto) 13 % (24-48) Monocytes (%) (Auto) 9 % (0-9) Eosinophils (%) (Auto) 1 % (0-3) Basophils (%) (Auto) 1 % (0-3) Neutrophils # (Auto) 5.9 x10^3/uL (1.8-7.7) Lymphocytes # (Auto) 1.0 x10^3/uL (1.0-4.8) Monocytes # (Auto) 0.7 x10^3/uL (0.0-1.1) Eosinophils # (Auto) 0.1 x10^3/uL (0.0-0.7) Basophils # (Auto) 0.1 x10^3/uL (0.0-0.2) Sodium Level 146 mmol/L (136-145) Potassium Level 3.7 mmol/L (3.5-5.1) Chloride Level 108 mmol/L (98-107) Carbon Dioxide Level 31 mmol/L (21-32) Anion Gap 7 (6-14) Blood Urea Nitrogen 58 mg/dL (8-26) Creatinine 2.7 mg/dL (0.7-1.3) Estimated GFR (Cockcroft-Gault) 23.3 Glucose Level 128 mg/dL (70-99) Calcium Level 7.7 mg/dL (8.5-10.1) Magnesium Level 2.0 mg/dL (1.8-2.4) Test 07/20/19 08:00 O2 Saturation 95 % (92-99) Arterial Blood pH 7.46 (7.35-7.45) Arterial Blood pCO2 at Patient Temp 40 mmHg (35-46) Arterial Blood pO2 at Patient Temp 75 mmHg (65-108) Arterial Blood HCO3 28 mmol/L (21-28) Arterial Blood Base Excess 4 mmol/L (-3-3) FiO2 40% vent Medications Active Scripts Medications Dose Route/Sig Max Daily Dose Days Date Category Toprol XL (Metoprolol Succinate) 50 Mg Tab.er.24h 50 Mg PO DAILY 06/20/19 Rx Metolazone 2.5 Mg Tablet 2.5 Mg PO QODAY 06/20/19 Rx Furosemide 40 Mg Tablet 40 Mg PO [id number] 06/20/19 Rx Klor-Con M20 (Potassium Chloride) 20 Meq Tab.er.prt 20 Meq PO BIDWMEALS 06/20/19 Rx Amiodarone Hcl 200 Mg Tablet 200 Mg PO DAILY 06/20/19 Rx Eliquis (Apixaban) 5 Mg Tablet 5 Mg PO BID 06/20/19 Rx Acetaminophen 325 Mg Tablet 325 Mg PO Q6HRS 06/13/19 Reported Dicyclomine Hcl 10 Mg Capsule 1 Cap PO PRN TID PRN 05/17/19 Reported Nexium Capsule (Esomeprazole Magnesium) 40 Mg Capsule.dr 40 Mg PO DAILYAC 05/17/19 Reported Oxycodone Hcl Immed.release (Oxycodone Hcl) 15 Mg Tablet 15 Mg PO PRN Q12HR PRN 05/17/19 Reported Alprazolam 1 Mg Tablet 1 Tab PO BID 02/05/17 Reported Impression . IMPRESSION: 1. Acute hypoxemic hypercapnic respiratory failure. 2. Bilateral pulmonary infiltrates, suspect combination of congestive heart failure and pneumonia. 3. Sepsis. 4. SARS-CoV 2, negative 5. Cardiomyopathy, ejection fraction of 15%. 6. Chronic atrial fibrillation. 7. Chronic kidney disease. 8. Acute on chronic systolic heart failure. 9. Hypotension, requiring pressors, suspect secondary to sepsis. 10. Mild elevation in troponin. 11. Paroxysmal atrial fibrillation with recent cardioversion. 12. Status post CODE BLUE secondary to V. tach Conclusion 1. Normal biventricular filling pressures. 2. Mild pulmonary HTN 3. Normal cardiac output at 5.1 L/min 4. One vessel coronary disease. 5. Successful PCI of the RCA as described above 6. Patient had one episode of SVT with hypotension requiring synchronized cardioversion to SR. Recommendations ASA 81mg daily Ticagrelor 90mg bid Will restart Eliquis at low dose if stable overnight. His hypotension is likely vasoplegic/septic shock, rather than cardiac in origin as evidenced by his normal cardiac output. Cardiac arrest this morning likely sequalae of electrolyte disturbances. Plan . Continue current support, IV lidocaine IV Continue assist control Follow cardiology Case discussed with RN Continue empiric antibiotics ABG noted Follow cardiology input GI DVT prophylaxis Total cumulative critical care time of 30 minminutes. The patient was seen during a COVID-19 pandemic. Chest x-ray reviewed Impression: 1. There is persistent bilateral airspace opacity likely due to infiltrates and/or edema with basilar predominance, somewhat increased of the mid hemithoraces. There are again likely at least small bilateral pleural effusions greater on the left. JUAN J CLARK MD July 20, 2019 11:22
--- NOTE | 2019-07-20 11:33 | PDOC ---
SUBJECTIVE ROS Coded x 2 this am due to VT cardiac arrest Intubated, On MV OBJECTIVE Vital Signs Vital Signs Date Time Temp Pulse Resp B/P (MAP) Pulse Ox O2 Delivery O2 Flow Rate FiO2 07/20/19 10:11 73 75/36 07/20/19 09:20 90 Ventilator 07/20/19 08:00 99.8 16 99.8 I & 0 Intake and Output 07/20/19 07:00 Intake Total 2148.37 ml Output Total 2570 ml Balance -421.63 ml Intake IV Total 2148.37 ml Tube Feeding 0 ml Output Urine Total 1270 ml Gastric Drainage Total 1300 ml PHYSICAL EXAM Physical Exam GENERAL: Intubated, sedated. HEENT: ETT and OG tube in place. NECK: Supple. HEART: S1, S2.Tachy ABDOMEN: Soft, LUNGS: Decreased at bases EXTREMITIES: Trace edema, no cyanosis. DERMATOLOGIC: Warm, dry. No generalized rash. NEUROLOGIC: Intubated, sedated. Antunez + DIAGNOSIS/ASSESSMENT Assessment & Plan DONTAE - Improving , UOP adequate ATN/Cardiorenal / Supportive care , avoid nephrotoxins CKD stage 3/4 Hospitalized in May with Cr 2.1 -2.4- new baseline vs DONTAE DONTAE in May 2019 with Cr of 2.5 - Cardiorenal HyperNatremia- improving HypoKal- replace HypoMg- Mg normal Acute on chronic respiratory failure with a/c CHF/Pneumonia ; intubated On IV Lasix , , Metolazone dced Acute on chronic systolic CHF- per Cardiology Severe cardiomyopathy; LVEF 10-15% per echo 06/12/19. S/P PCI to RCA 07/17 Leukocytosis, lactic acidosis COVID negative Shock; requiring pressor support PAFIB s/p recent CV COMMENT/RELEVANT DATA Meds Current Medications Medications (Trade) Dose Ordered Sig/Chance Start Time Stop Time Status Last Admin Dose Admin Acetaminophen (Tylenol) 650 mg PRN Q6HRS PRN 07/17/19 10:30 Alprazolam (Xanax) 1 mg BID 07/17/19 21:00 Amiodarone HCl (Cordarone) 300 mg STK-MED ONCE 07/18/19 16:08 07/19/19 16:08 DC Amiodarone HCl 150 mg/Dextrose 103 ml @ 618 mls/hr 1X ONCE 07/19/19 12:00 07/19/19 12:09 DC 07/19/19 12:15 618 MLS/HR Amiodarone HCl 450 mg/Dextrose 259 ml @ 0 mls/hr CONT PRN 07/20/19 10:00 Cancel Apixaban (Eliquis) 5 mg BID 07/17/19 21:00 07/20/19 10:18 5 MG Aspirin (Aspirin Chewable) 81 mg DAILYWBKFT 07/20/19 08:00 07/20/19 10:18 81 MG Aspirin (Aspirin Rectal Supp) 300 mg 1X ONCE 07/17/19 05:45 07/17/19 05:46 DC 07/17/19 06:01 300 MG Atropine Sulfate (ATROPINE 0.5mg SYRINGE) 0.5 mg PRN Q5MIN PRN 07/17/19 11:00 Bumetanide (Bumex) 1 mg 1X ONCE 07/17/19 06:00 07/17/19 06:01 DC 07/17/19 06:00 1 MG Dexmedetomidine HCl 400 mcg/ Sodium Chloride 100 ml @ 0 mls/hr CONT PRN 07/17/19 11:00 07/20/19 06:01 25.4 MLS/HR Digoxin (Lanoxin) 250 mcg 1X ONCE 07/19/19 04:10 07/19/19 06:15 DC 07/19/19 04:15 250 MCG Epinephrine HCl (EPINEPHrine SYRINGE) 4 mg STK-MED ONCE 07/18/19 16:08 07/19/19 16:08 DC Epinephrine HCl 5 mg/Sodium Chloride 255 ml @ 32.926 mls/ hr CONT PRN 07/18/19 14:00 Etomidate (Amidate) 20 mg 1X ONCE 07/17/19 04:45 07/17/19 04:46 DC 07/17/19 04:43 20 MG Furosemide (Lasix) 40 mg DAILY 07/21/19 09:00 Heparin Sodium (Porcine) (Heparin Sodium) 7,000 unit 1X ONCE 07/18/19 14:45 07/18/19 14:52 DC 07/18/19 14:45 7,000 UNIT Heparin Sodium/ Sodium Chloride 500 ml @ As Directed STK-MED ONCE 07/18/19 15:11 07/18/19 15:11 DC Heparin Sodium/ Sodium Chloride (HEPARIN for ARTERIAL LINE FLUSH) 1,000 unit 1X ONCE 07/18/19 14:45 07/18/19 14:52 DC 07/18/19 14:45 1,000 UNIT Info (Anti-Coagulation Monitoring By Pharmacy) 1 each PRN DAILY PRN 07/18/19 08:00 07/19/19 15:26 1 EACH Info (Tpn Per Pharmacy) 1 each PRN DAILY PRN 07/19/19 17:00 Insulin Human Lispro (HumaLOG) 0-6 UNITS Q6HRS 07/17/19 12:00 Iodixanol (Visipaque 320) 100 ml 1X ONCE 07/18/19 14:45 07/18/19 14:52 DC 07/18/19 14:45 104 ML Lansoprazole (Prevacid) 30 mg DAILY 07/18/19 09:00 07/20/19 10:18 30 MG Lidocaine HCl (Lidocaine 1% 20ml Vial) 20 ml 1X ONCE 07/18/19 14:45 07/18/19 14:52 DC 07/18/19 14:45 10 ML Lidocaine HCl (Lidocaine HCl 2% Abboject) 80 mg 1X ONCE 07/20/19 10:00 07/20/19 10:03 DC 07/20/19 10:11 80 MG Lidocaine HCl (Xylocaine-Mpf 1% 2ml Vial) 2 ml STK-MED ONCE 07/18/19 13:05 07/18/19 13:05 DC Lidocaine HCl/ Dextrose 500 ml @ 0 mls/hr CONT PRN 07/20/19 10:00 07/20/19 10:15 15 MLS/HR Linezolid/Dextrose 300 ml @ 300 mls/hr Q12HR 07/18/19 09:00 07/20/19 08:25 DC 07/19/19 21:29 300 MLS/HR Magnesium Hydroxide (Milk Of Magnesia) 2,400 mg PRN DAILY PRN 07/17/19 10:30 Magnesium Sulfate 50 ml @ 25 mls/hr 1X ONCE 07/18/19 09:45 07/18/19 11:44 DC 07/18/19 10:03 25 MLS/HR Magnesium Sulfate/ Dextrose 100 ml @ 100 mls/hr 1X ONCE 07/20/19 09:45 07/20/19 10:44 DC Metolazone (Zaroxolyn) 2.5 mg QODAY 07/19/19 09:00 07/18/19 10:36 DC Metoprolol Tartrate (Lopressor) 12.5 mg Q6HRS 07/19/19 12:00 07/20/19 06:00 12.5 MG Midazolam HCl 100 ml @ 0 mls/hr CONT PRN 07/17/19 07:15 07/20/19 08:11 10 MLS/HR Milrinone Lactate/ Dextrose 100 ml @ 0 mls/hr CONT PRN 07/18/19 07:15 07/20/19 02:37 4.2 MLS/HR Morphine Sulfate 30 ml @ 0 mls/hr CONT PRN PRN 07/18/19 12:45 07/20/19 03:48 2 MLS/HR Morphine Sulfate (Morphine Sulfate) 4 mg PRN Q1HR PRN 07/17/19 11:15 07/18/19 13:53 4 MG Nitroglycerin (Nitrostat) 0.4 mg 1X ONCE 07/17/19 04:30 07/17/19 04:43 DC 07/17/19 04:29 0.4 MG Nitroglycerin/ Dextrose 250 ml @ 0 mls/hr 1X ONCE 07/17/19 04:45 07/17/19 04:46 DC 07/17/19 04:47 1.5 MLS/HR Norepinephrine Bitartrate 32 mg/ Dextrose 282 ml @ 0 mls/hr CONT PRN 07/18/19 11:15 07/19/19 10:39 9 MLS/HR Norepinephrine Bitartrate 8 mg/ Dextrose 258 ml @ 0 mls/hr CONT PRN 07/17/19 06:30 07/18/19 13:40 DC 07/17/19 21:52 11 MLS/HR Ondansetron HCl (Zofran) 4 mg PRN Q8HRS PRN 07/17/19 06:00 07/18/19 05:59 DC Piperacillin Sod/ Tazobactam Sod 2.25 gm/Sodium Chloride 50 ml @ 100 mls/hr Q6HRS 07/17/19 18:00 07/20/19 06:00 100 MLS/HR Piperacillin Sod/ Tazobactam Sod 4.5 gm/Sodium Chloride 100 ml @ 200 mls/hr 1X ONCE 07/17/19 06:00 07/17/19 06:29 DC 07/17/19 11:14 200 MLS/HR Potassium Chloride/Water 100 ml @ 100 mls/hr Q1H 07/20/19 09:45 07/20/19 13:44 Potassium Chloride (Klor-Con) 20 meq BIDWMEALS 07/17/19 17:00 07/18/19 10:36 DC 07/17/19 16:34 20 MEQ Propofol 100 ml @ 0 mls/hr CONT PRN 07/17/19 05:15 07/17/19 05:45 1.7 MLS/HR Rocuronium [place] (Zemuron) 50 mg 1X ONCE 07/17/19 04:45 07/17/19 04:46 DC 07/17/19 04:44 50 MG Sodium Chloride 500 ml @ 500 mls/hr 1X PRN PRN 07/17/19 11:00 Ticagrelor (Brilinta) 90 mg 1X ONCE 07/19/19 17:00 07/19/19 17:07 DC 07/19/19 17:28 90 MG Vancomycin HCl (Vanco Per Pharmacy) 1 each PRN DAILY PRN 07/17/19 06:00 07/17/19 10:41 DC 07/17/19 06:43 1 EACH Vancomycin HCl (Vancomycin Trough Level) 1 each 1X ONCE 07/19/19 06:00 07/19/19 06:01 Cancel Vancomycin HCl 1.75 gm/Sodium Chloride 500 ml @ 250 mls/hr Q24H 07/18/19 06:30 07/17/19 10:38 DC Vancomycin HCl 2 gm/Sodium Chloride 500 ml @ 250 mls/hr 1X ONCE 07/17/19 06:00 07/17/19 07:59 DC 07/17/19 06:15 250 MLS/HR Vecuronium [place] (Norcuron Bolus) 20 mg STK-MED ONCE 07/18/19 12:00 07/19/19 08:48 DC Lab Laboratory Tests Test 07/19/19 17:49 07/19/19 23:56 07/20/19 05:00 07/20/19 05:25 Glucose (Fingerstick) 129 mg/dL (70-99) 145 mg/dL (70-99) 121 mg/dL (70-99) White Blood Count 7.7 x10^3/uL (4.0-11.0) Red Blood Count 4.59 x10^6/uL (4.30-5.70) Hemoglobin 13.2 g/dL (13.0-17.5) Hematocrit 40.7 % (39.0-53.0) Mean Corpuscular Volume 89 fL (79-100) Mean Corpuscular Hemoglobin 29 pg (25-35) Mean Corpuscular Hemoglobin Concent 33 g/dL (31-37) Red Cell Distribution Width 15.9 % (11.5-14.5) Platelet Count 117 x10^3/uL (140-400) Neutrophils (%) (Auto) 76 % (31-73) Lymphocytes (%) (Auto) 13 % (24-48) Monocytes (%) (Auto) 9 % (0-9) Eosinophils (%) (Auto) 1 % (0-3) Basophils (%) (Auto) 1 % (0-3) Neutrophils # (Auto) 5.9 x10^3/uL (1.8-7.7) Lymphocytes # (Auto) 1.0 x10^3/uL (1.0-4.8) Monocytes # (Auto) 0.7 x10^3/uL (0.0-1.1) Eosinophils # (Auto) 0.1 x10^3/uL (0.0-0.7) Basophils # (Auto) 0.1 x10^3/uL (0.0-0.2) Sodium Level 146 mmol/L (136-145) Potassium Level 3.7 mmol/L (3.5-5.1) Chloride Level 108 mmol/L (98-107) Carbon Dioxide Level 31 mmol/L (21-32) Anion Gap 7 (6-14) Blood Urea Nitrogen 58 mg/dL (8-26) Creatinine 2.7 mg/dL (0.7-1.3) Estimated GFR (Cockcroft-Gault) 23.3 Glucose Level 128 mg/dL (70-99) Calcium Level 7.7 mg/dL (8.5-10.1) Magnesium Level 2.0 mg/dL (1.8-2.4) Test 07/20/19 08:00 O2 Saturation 95 % (92-99) Arterial Blood pH 7.46 (7.35-7.45) Arterial Blood pCO2 at Patient Temp 40 mmHg (35-46) Arterial Blood pO2 at Patient Temp 75 mmHg (65-108) Arterial Blood HCO3 28 mmol/L (21-28) Arterial Blood Base Excess 4 mmol/L (-3-3) FiO2 40% vent Results All relevant outside records, renal labs, imaging studies, telemetry/EKG's were reviewed. GYPSY COLEMAN MD July 20, 2019 11:33
[2019-07-20] MEDS: POTASSIUM CHLORIDE 20MEQ 100 ML IV SCH ×4 (11:41→15:45)
[2019-07-20] MEDS: TPN PER PHARMACY MC PRN (14:34)
--- NOTE | 2019-07-20 14:35 | NUR ---
Pharmacy TPN Dosing Note S: MALKA THOMPSON is a 74 year old M Currently receiving Central Continuous TPN started 07/20/19 B:Pertinent PMH: HIGH GASTRIC RESIDUAL WITH TF Height: 5 feet, 10 inches Weight: 108.1 kg Current diet: NPO LABS: Sodium: 146 Potassium: 3.7 Chloride: 108 Calcium: 7.7 Corrected Calcium: 8.82 Magnesium: 2 CO2: 31 SCr: 2.7 Glucose: 109-132 Albumin: 2.6 AST: - ALT: - TPN FORMULA: TPN TYPE: Central Continuous AMINO ACIDS: 110 gm DEXTROSE: 225 gm LIPIDS: 20 gm SODIUM CHLORIDE: 90 mEq SODIUM ACETATE: mEq SODIUM PHOSPHATE: mmol POTASSIUM CHLORIDE: 50 mEq POTASSIUM ACETATE: mEq POTASSIUM PHOSPHATE: 13.6 mmol MAGNESIUM: 10 mEq CALCIUM: 10 mEq INSULIN: units MULTIPLE VITAMIN: 10 ml TRACE ELEMENTS: MTE 5 1 ML ml(s) TPN PLAN: Pt intolerant of TF. Started standard lytes with macros per dietary. Labs in AM. R: [g RX.ACTION] TPN [] Will monitor electrolytes, glucose, and tolerance to TPN. FREDIS VAZQUEZ [facility], 07/20/19 [id number]
[2019-07-20] MEDS: ANTI-COAG MONITOR BY PHARMACY. MC PRN (14:42)
--- NOTE | 2019-07-20 16:58 | NUR ---
Right groin area prepped and 6f Arterial Sheath removed by Reji Johnson RT @ 1643 Manual Pressure held and hemostasis achieved at 1657. 5f Venous Sheath removed at 1657 manual pressure held and hemostasis achieved at 1702. Sterile dressing applied. No hematoma present at this time. RN called to bedside to evaluate.
[2019-07-20 18:55] LABS: CALCIUM 7.4 mg/dL (8.5-10.1); CREATININE 2.4 mg/dL (0.7-1.3); GFR 26.7; POTASSIUM 4.4 mmol/L (3.5-5.1)
[2019-07-20] MEDS ORDERED: AMINO ACID IV SCH ×10 (22:00)
[2019-07-20] MEDS ORDERED: DEXTROSE 70% IV SCH ×10 (22:00)
[2019-07-20] MEDS ORDERED: TOTAL PARENTERAL NUTRITION IV SCH ×10 (22:00)
[2019-07-20] MEDS ORDERED: [UNRECOGNIZED DRUG - OTHER] IV SCH ×10 (22:00)
[2019-07-21] VITALS (26 sets, daily range): BP systolic 96–167; BP diastolic 12–83
[2019-07-21] MEDS: MIDAZOLAM 100mg/100ml NS BAG 100 ML IV PRN ×2 (05:02→21:00)
[2019-07-21] MEDS: MORPHINE SULFATE 30 ML IV PRN ×2 (05:04→21:03)
[2019-07-21 05:31] LABS: BASO % 1 % (0-3); EOS # 0.2 x10^3/uL (0.0-0.7); EOS % 3 % (0-3); HEMATOCRIT 38.9 % (39.0-53.0); HEMOGLOBIN 12.7 g/dL (13.0-17.5); LYMPH # 0.7 x10^3/uL (1.0-4.8); LYMPH % 11 % (24-48); MEAN CORPUSCULAR HEMOGLOBIN 29 pg (25-35); MEAN CORPUSCULAR HGB CONC 33 g/dL (31-37); MEAN CORPUSCULAR VOLUME 89 fL (79-100); MONO # 0.5 x10^3/uL (0.0-1.1); MONO % 9 % (0-9); NEUT # 4.8 x10^3/uL (1.8-7.7); NEUT % 77 % (31-73); PLATELET COUNT 118 x10^3/uL (140-400); RED BLOOD COUNT 4.36 x10^6/uL (4.30-5.70); RED CELL DISTRIBUTION WIDTH 16.7 % (11.5-14.5); WHITE BLOOD COUNT 6.2 x10^3/uL (4.0-11.0)
[2019-07-21] MEDS: METOPROLOL TART IMMED RELEASE 25 MG TABLET. PO SCH ×4 (05:42→23:31)
[2019-07-21] MEDS: PIPERACILLIN/TAZOBACTAM 2.25 GM in IV NORMAL SALINE 50ML 50 ML IV SCH ×4 (05:42→23:31)
[2019-07-21 05:43] LABS: CALCIUM 7.5 mg/dL (8.5-10.1); CREATININE 2.1 mg/dL (0.7-1.3); GFR 31.1; MAGNESIUM 2.4 mg/dL (1.8-2.4); POTASSIUM 4.1 mmol/L (3.5-5.1)
[2019-07-21] MEDS: INSULIN LISPRO 300 UNITS/3 ML VIAL. SQ SCH ×4 (05:45→23:32)
--- NOTE | 2019-07-21 08:11 | PDOC ---
Infectious Disease Note Subjective: Subjective intubated/sedated Patient went into VT yesterday,Status post cardiac arrest x2 afebrile last 24 hrs Vital Signs: Vital Signs Vital Signs Date Time Temp Pulse Resp B/P (MAP) Pulse Ox O2 Delivery O2 Flow Rate FiO2 07/21/19 07:42 100 Ventilator 07/21/19 06:00 64 16 99/48 (65) 07/21/19 04:00 98.4 98.4 Physical Exam: PHYSICAL EXAM GENERAL: Intubated, sedated. HEENT: ETT and OG tube in place. NECK: Supple. HEART: S1, S2.Tachy ABDOMEN: Soft, bowel sounds present, nontender, nondistended. jade in place LUNGS: dec bs sounds ,rales EXTREMITIES: Trace edema, no cyanosis. DERMATOLOGIC: Warm, dry. No generalized rash. NEUROLOGIC: Intubated, sedated. IJ site looks clean Medications: Inpatient Meds: Current Medications Medications (Trade) Dose Ordered Sig/Chance Start Time Stop Time Status Last Admin Dose Admin Acetaminophen (Tylenol) 650 mg PRN Q6HRS PRN 07/17/19 10:30 Alprazolam (Xanax) 1 mg BID 07/17/19 21:00 Amiodarone HCl (Cordarone) 300 mg STK-MED ONCE 07/18/19 16:08 07/19/19 16:08 DC Amiodarone HCl 150 mg/Dextrose 103 ml @ 618 mls/hr 1X ONCE 07/19/19 12:00 07/19/19 12:09 DC 07/19/19 12:15 618 MLS/HR Amiodarone HCl 450 mg/Dextrose 259 ml @ 0 mls/hr CONT PRN 07/20/19 10:00 Cancel Apixaban (Eliquis) 5 mg BID 07/17/19 21:00 07/20/19 21:07 5 MG Aspirin (Aspirin Chewable) 81 mg [id number] 07/20/19 08:00 07/20/19 10:18 81 MG Aspirin (Aspirin Rectal Supp) 300 mg 1X ONCE 07/17/19 05:45 07/17/19 05:46 DC 07/17/19 06:01 300 MG Atropine Sulfate (ATROPINE 0.5mg SYRINGE) 0.5 mg PRN Q5MIN PRN 07/17/19 11:00 Bumetanide (Bumex) 1 mg 1X ONCE 07/17/19 06:00 07/17/19 06:01 DC 07/17/19 06:00 1 MG Dexmedetomidine HCl 400 mcg/ Sodium Chloride 100 ml @ 0 mls/hr CONT PRN 07/17/19 11:00 07/20/19 13:31 8.5 MLS/HR Digoxin (Lanoxin) 250 mcg 1X ONCE 07/19/19 04:10 07/19/19 06:15 DC 07/19/19 04:15 250 MCG Epinephrine HCl (EPINEPHrine SYRINGE) 4 mg STK-MED ONCE 07/18/19 16:08 07/19/19 16:08 DC Epinephrine HCl 5 mg/Sodium Chloride 255 ml @ 32.926 mls/ hr CONT PRN 07/18/19 14:00 Etomidate (Amidate) 20 mg 1X ONCE 07/17/19 04:45 07/17/19 04:46 DC 07/17/19 04:43 20 MG Furosemide (Lasix) 40 mg DAILY 07/21/19 09:00 Heparin Sodium (Porcine) (Heparin Sodium) 7,000 unit 1X ONCE 07/18/19 14:45 07/18/19 14:52 DC 07/18/19 14:45 7,000 UNIT Heparin Sodium/ Sodium Chloride 500 ml @ As Directed STK-MED ONCE 07/18/19 15:11 07/18/19 15:11 DC Heparin Sodium/ Sodium Chloride (HEPARIN for ARTERIAL LINE FLUSH) 1,000 unit 1X ONCE 07/18/19 14:45 07/18/19 14:52 DC 07/18/19 14:45 1,000 UNIT Info (Anti-Coagulation Monitoring By Pharmacy) 1 each PRN DAILY PRN 07/18/19 08:00 07/20/19 14:42 1 EACH Info (Tpn Per Pharmacy) 1 each PRN DAILY PRN 07/19/19 17:00 07/20/19 14:34 1 EACH Insulin Human Lispro (HumaLOG) 0-6 UNITS Q6HRS 07/17/19 12:00 Iodixanol (Visipaque 320) 100 ml 1X ONCE 07/18/19 14:45 07/18/19 14:52 DC 07/18/19 14:45 104 ML Lansoprazole (Prevacid) 30 mg DAILY 07/18/19 09:00 07/20/19 10:18 30 MG Lidocaine HCl (Lidocaine 1% 20ml Vial) 20 ml 1X ONCE 07/18/19 14:45 07/18/19 14:52 DC 07/18/19 14:45 10 ML Lidocaine HCl (Lidocaine HCl 2% Abboject) 80 mg 1X ONCE 07/20/19 10:00 07/20/19 10:03 DC 07/20/19 10:11 80 MG Lidocaine HCl (Xylocaine-Mpf 1% 2ml Vial) 2 ml STK-MED ONCE 07/18/19 13:05 07/18/19 13:05 DC Lidocaine HCl/ Dextrose 500 ml @ 0 mls/hr CONT PRN 07/20/19 10:00 07/20/19 10:15 15 MLS/HR Linezolid/Dextrose 300 ml @ 300 mls/hr Q12HR 07/18/19 09:00 07/20/19 08:25 DC 07/19/19 21:29 300 MLS/HR Magnesium Hydroxide (Milk Of Magnesia) 2,400 mg PRN DAILY PRN 07/17/19 10:30 Magnesium Sulfate 50 ml @ 25 mls/hr 1X ONCE 07/18/19 09:45 07/18/19 11:44 DC 07/18/19 10:03 25 MLS/HR Magnesium Sulfate/ Dextrose 100 ml @ 100 mls/hr 1X ONCE 07/20/19 09:45 07/20/19 10:44 DC 07/20/19 11:43 100 MLS/HR Metolazone (Zaroxolyn) 2.5 mg QODAY 07/19/19 09:00 07/18/19 10:36 DC Metoprolol Tartrate (Lopressor) 12.5 mg Q6HRS 07/19/19 12:00 07/20/19 06:00 12.5 MG Midazolam HCl 100 ml @ 0 mls/hr CONT PRN 07/17/19 07:15 07/21/19 05:02 10 MLS/HR Milrinone Lactate/ Dextrose 100 ml @ 0 mls/hr CONT PRN 07/18/19 07:15 07/20/19 02:37 4.2 MLS/HR Morphine Sulfate 30 ml @ 0 mls/hr CONT PRN PRN 07/18/19 12:45 07/21/19 05:04 2 MLS/HR Morphine Sulfate (Morphine Sulfate) 4 mg PRN Q1HR PRN 07/17/19 11:15 07/18/19 13:53 4 MG Nitroglycerin (Nitrostat) 0.4 mg 1X ONCE 07/17/19 04:30 07/17/19 04:43 DC 07/17/19 04:29 0.4 MG Nitroglycerin/ Dextrose 250 ml @ 0 mls/hr 1X ONCE 07/17/19 04:45 07/17/19 04:46 DC 07/17/19 04:47 1.5 MLS/HR Norepinephrine Bitartrate 32 mg/ Dextrose 282 ml @ 0 mls/hr CONT PRN 07/18/19 11:15 07/19/19 10:39 9 MLS/HR Norepinephrine Bitartrate 8 mg/ Dextrose 258 ml @ 0 mls/hr CONT PRN 07/17/19 06:30 07/18/19 13:40 DC 07/17/19 21:52 11 MLS/HR Ondansetron HCl (Zofran) 4 mg PRN Q8HRS PRN 07/17/19 06:00 07/18/19 05:59 DC Piperacillin Sod/ Tazobactam Sod 2.25 gm/Sodium Chloride 50 ml @ 100 mls/hr Q6HRS 07/17/19 18:00 07/21/19 05:42 100 MLS/HR Piperacillin Sod/ Tazobactam Sod 4.5 gm/Sodium Chloride 100 ml @ 200 mls/hr 1X ONCE 07/17/19 06:00 07/17/19 06:29 DC 07/17/19 11:14 200 MLS/HR Potassium Chloride/Water 100 ml @ 100 mls/hr Q1H 07/20/19 09:45 07/20/19 13:44 DC 07/20/19 15:45 100 MLS/HR Potassium Chloride (Klor-Con) 20 meq BIDWMEALS 07/17/19 17:00 07/18/19 10:36 DC 07/17/19 16:34 20 MEQ Propofol 100 ml @ 0 mls/hr CONT PRN 07/17/19 05:15 07/17/19 05:45 1.7 MLS/HR Rocuronium [place] (Zemuron) 50 mg 1X ONCE 07/17/19 04:45 07/17/19 04:46 DC 07/17/19 04:44 50 MG Sodium Chloride 90 meq/Potassium Chloride 50 meq/ Potassium Phosphate 13.6 mmol/Magnesium Sulfate 10 meq/ Calcium Gluconate 10 meq/ Multivitamins 10 ml/Chromium/ Copper/Manganese/ Seleni/Zn 1 ml/ Total Parenteral Nutrition/Amino Acids/Dextrose/ Fat Emulsion Intravenous 1,512 ml @ 63 mls/hr TPN CONT 07/20/19 22:00 07/21/19 21:59 07/20/19 22:01 63 MLS/HR Ticagrelor (Brilinta) 90 mg 1X ONCE 07/19/19 17:00 07/19/19 17:07 DC 07/19/19 17:28 90 MG Vancomycin HCl (Vanco Per Pharmacy) 1 each PRN DAILY PRN 07/17/19 06:00 07/17/19 10:41 DC 07/17/19 06:43 1 EACH Vancomycin HCl (Vancomycin Trough Level) 1 each 1X ONCE 07/19/19 06:00 07/19/19 06:01 Cancel Vancomycin HCl 1.75 gm/Sodium Chloride 500 ml @ 250 mls/hr Q24H 07/18/19 06:30 07/17/19 10:38 DC Vancomycin HCl 2 gm/Sodium Chloride 500 ml @ 250 mls/hr 1X ONCE 07/17/19 06:00 07/17/19 07:59 DC 07/17/19 06:15 250 MLS/HR Vecuronium [place] (Norcuron Bolus) 20 mg STK-MED ONCE 07/18/19 12:00 07/19/19 08:48 DC Labs: Lab Laboratory Tests Test 07/20/19 09:02 07/20/19 13:36 07/20/19 18:00 07/20/19 18:15 Glucose (Fingerstick) 109 mg/dL (70-99) 132 mg/dL (70-99) 108 mg/dL (70-99) Sodium Level 145 mmol/L (136-145) Potassium Level 4.4 mmol/L (3.5-5.1) Chloride Level 110 mmol/L (98-107) Carbon Dioxide Level 31 mmol/L (21-32) Anion Gap 4 (6-14) Blood Urea Nitrogen 60 mg/dL (8-26) Creatinine 2.4 mg/dL (0.7-1.3) Estimated GFR (Cockcroft-Gault) 26.7 Glucose Level 108 mg/dL (70-99) Calcium Level 7.4 mg/dL (8.5-10.1) Magnesium Level 2.2 mg/dL (1.8-2.4) Test 07/20/19 23:56 07/21/19 05:00 07/21/19 05:45 Glucose (Fingerstick) 129 mg/dL (70-99) 137 mg/dL (70-99) White Blood Count 6.2 x10^3/uL (4.0-11.0) Red Blood Count 4.36 x10^6/uL (4.30-5.70) Hemoglobin 12.7 g/dL (13.0-17.5) Hematocrit 38.9 % (39.0-53.0) Mean Corpuscular Volume 89 fL (79-100) Mean Corpuscular Hemoglobin 29 pg (25-35) Mean Corpuscular Hemoglobin Concent 33 g/dL (31-37) Red Cell Distribution Width 16.7 % (11.5-14.5) Platelet Count 118 x10^3/uL (140-400) Neutrophils (%) (Auto) 77 % (31-73) Lymphocytes (%) (Auto) 11 % (24-48) Monocytes (%) (Auto) 9 % (0-9) Eosinophils (%) (Auto) 3 % (0-3) Basophils (%) (Auto) 1 % (0-3) Neutrophils # (Auto) 4.8 x10^3/uL (1.8-7.7) Lymphocytes # (Auto) 0.7 x10^3/uL (1.0-4.8) Monocytes # (Auto) 0.5 x10^3/uL (0.0-1.1) Eosinophils # (Auto) 0.2 x10^3/uL (0.0-0.7) Basophils # (Auto) 0.0 x10^3/uL (0.0-0.2) Sodium Level 143 mmol/L (136-145) Potassium Level 4.1 mmol/L (3.5-5.1) Chloride Level 110 mmol/L (98-107) Carbon Dioxide Level 26 mmol/L (21-32) Anion Gap 7 (6-14) Blood Urea Nitrogen 62 mg/dL (8-26) Creatinine 2.1 mg/dL (0.7-1.3) Estimated GFR (Cockcroft-Gault) 31.1 Glucose Level 150 mg/dL (70-99) Calcium Level 7.5 mg/dL (8.5-10.1) Phosphorus Level 3.4 mg/dL (2.6-4.7) Magnesium Level 2.4 mg/dL (1.8-2.4) Objective: Assessment: 1. Sepsis. 2. Leukocytosis. 3. Lactic acidosis. 4. Acute hypoxic respiratory failure, status post intubation. Bilateral pulmonary infiltrates 5. Congestive heart failure. s/p VT arrest 07/17 s/p PCI with stent placement 6. Cardiomyopathy. 7. DONTAE on Chronic kidney disease. 8. Gastroesophageal reflux disease. 9. On amiodarone. 10. COVID neg Plan: Plan of Care Continues Zosyn off Zyvox ;Status post 1 dose of vancomycin f/u cult and labs in am cont supportive care Critically ill d/w MARGRET Smith MD July 21, 2019 08:11
[2019-07-21] MEDS: ALPRAZolam 0.5 MG TABLET FT SCH ×2 (09:00→21:00)
[2019-07-21] MEDS: FUROSEMIDE 40 MG/4 ML VIAL. IVP SCH (09:00)
[2019-07-21] MEDS: TICAGRELOR 90 MG TABLET. PO SCH ×2 (09:03→21:00)
[2019-07-21] MEDS: LANSOPRAZOLE 30 MG TAB.RAP.DR FT SCH (09:03)
[2019-07-21] MEDS: ASPIRIN CHEWABLE 81 MG TABLET. PO SCH (09:04)
[2019-07-21] MEDS: AMIODARONE HCL 200 MG TABLET. PO SCH (09:04)
[2019-07-21] MEDS: APIXABAN 5 MG TABLET. FT SCH ×2 (09:13→21:00)
[2019-07-21 10:24] LABS: BASE EXCESS ABG 4 mmol/L (-3-3); HCO3 ABG 29 mmol/L (21-28); PCO2 ABG 45 mmHg (35-46); PO2 ABG 100 mmHg (65-108); SAT O2 ABG 97 % (92-99)
--- NOTE | 2019-07-21 10:33 | PDOC ---
PROGRESS NOTES Subjective Subjective discussed with his nurse . off of levophed but still on iv lidocaine and milrinone and TPN. he is alert and understood what I said to him describing his hospital stay and current status. he nodded stating he understood what I said. lab reviewed, echo LVEF improved to 40-45%. Objective Objective Vital Signs Date Time Temp Pulse Resp B/P (MAP) Pulse Ox O2 Delivery O2 Flow Rate FiO2 07/21/19 09:04 65 116/55 07/21/19 07:42 100 Ventilator 07/21/19 06:00 16 07/21/19 04:00 98.4 98.4 07/18/19 03:49 15.0 Intake and Output 07/21/19 07:00 Intake Total 1968 ml Output Total 1121 ml Balance 847 ml Intake IV Total 1968 ml Output Urine Total 1121 ml Physical Exam Abdomen: Normal bowel sounds, Soft Heart: Normal S1, Normal S2 Extremities: Other (trace edema legs) General: Alert, Other (intubated) Lungs: Other (clear anteriorly) Neuro: Other (alert) Psych/Mental Status: Other (alert) Skin: No rashes Assessment Assessment Problems1. Acute pulmonary edema. compensated 2. Acute on chronic systolic congestive heart failure.compensated 3. Severe cardiomyopathy with left ventricular ejection fraction 40-45% 07/19 per echo 4. Acute hypoxic and hypercarbic respiratory failure, on the ventilator. 5. Paroxysmal atrial fibrillation, currently a fib RVR 6. sepsis with shock, maintained on pressor 7. acute kidney injury on chronic kidney disease stage 3. 8. Gastroesophageal reflux disease. 9. Leukocytosis resolved bilateral lung infiltrates. suspect pneumonia hypernatremia mild hypokalemia resolved hypomagnesemia resolved VT cardiac arrest 07/17 and again 07/19 PCI RCA 07/17 Medical Problems: (1) Acute exacerbation of CHF (congestive heart failure) Status: Acute (2) Acute on chronic renal insufficiency Status: Acute (3) Elevated troponin I level Status: Acute (4) Septic shock Status: Acute (5) Suspected COVID-19 virus infection Status: Acute Plan Plan of Care start tube feeding continue ventilator support d/c TPN continue iv milrinone and iv lidocaine continue iv zosyn lab tomorrow Comment Review of Relevant I have reviewed the following items juan (where applicable) has been applied. Labs Laboratory Tests Test 07/19/19 11:21 07/19/19 17:49 07/19/19 23:56 07/20/19 05:00 Glucose (Fingerstick) 160 mg/dL (70-99) 129 mg/dL (70-99) 145 mg/dL (70-99) White Blood Count 7.7 x10^3/uL (4.0-11.0) Red Blood Count 4.59 x10^6/uL (4.30-5.70) Hemoglobin 13.2 g/dL (13.0-17.5) Hematocrit 40.7 % (39.0-53.0) Mean Corpuscular Volume 89 fL (79-100) Mean Corpuscular Hemoglobin 29 pg (25-35) Mean Corpuscular Hemoglobin Concent 33 g/dL (31-37) Red Cell Distribution Width 15.9 % (11.5-14.5) Platelet Count 117 x10^3/uL (140-400) Neutrophils (%) (Auto) 76 % (31-73) Lymphocytes (%) (Auto) 13 % (24-48) Monocytes (%) (Auto) 9 % (0-9) Eosinophils (%) (Auto) 1 % (0-3) Basophils (%) (Auto) 1 % (0-3) Neutrophils # (Auto) 5.9 x10^3/uL (1.8-7.7) Lymphocytes # (Auto) 1.0 x10^3/uL (1.0-4.8) Monocytes # (Auto) 0.7 x10^3/uL (0.0-1.1) Eosinophils # (Auto) 0.1 x10^3/uL (0.0-0.7) Basophils # (Auto) 0.1 x10^3/uL (0.0-0.2) Sodium Level 146 mmol/L (136-145) Potassium Level 3.7 mmol/L (3.5-5.1) Chloride Level 108 mmol/L (98-107) Carbon Dioxide Level 31 mmol/L (21-32) Anion Gap 7 (6-14) Blood Urea Nitrogen 58 mg/dL (8-26) Creatinine 2.7 mg/dL (0.7-1.3) Estimated GFR (Cockcroft-Gault) 23.3 Glucose Level 128 mg/dL (70-99) Calcium Level 7.7 mg/dL (8.5-10.1) Magnesium Level 2.0 mg/dL (1.8-2.4) Test 07/20/19 05:25 07/20/19 08:00 07/20/19 09:02 07/20/19 13:36 Glucose (Fingerstick) 121 mg/dL (70-99) 109 mg/dL (70-99) 132 mg/dL (70-99) O2 Saturation 95 % (92-99) Arterial Blood pH 7.46 (7.35-7.45) Arterial Blood pCO2 at Patient Temp 40 mmHg (35-46) Arterial Blood pO2 at Patient Temp 75 mmHg (65-108) Arterial Blood HCO3 28 mmol/L (21-28) Arterial Blood Base Excess 4 mmol/L (-3-3) FiO2 40% vent Test 07/20/19 18:00 07/20/19 18:15 07/20/19 23:56 07/21/19 05:00 Sodium Level 145 mmol/L (136-145) 143 mmol/L (136-145) Potassium Level 4.4 mmol/L (3.5-5.1) 4.1 mmol/L (3.5-5.1) Chloride Level 110 mmol/L (98-107) 110 mmol/L (98-107) Carbon Dioxide Level 31 mmol/L (21-32) 26 mmol/L (21-32) Anion Gap 4 (6-14) 7 (6-14) Blood Urea Nitrogen 60 mg/dL (8-26) 62 mg/dL (8-26) Creatinine 2.4 mg/dL (0.7-1.3) 2.1 mg/dL (0.7-1.3) Estimated GFR (Cockcroft-Gault) 26.7 31.1 Glucose Level 108 mg/dL (70-99) 150 mg/dL (70-99) Calcium Level 7.4 mg/dL (8.5-10.1) 7.5 mg/dL (8.5-10.1) Magnesium Level 2.2 mg/dL (1.8-2.4) 2.4 mg/dL (1.8-2.4) Glucose (Fingerstick) 108 mg/dL (70-99) 129 mg/dL (70-99) White Blood Count 6.2 x10^3/uL (4.0-11.0) Red Blood Count 4.36 x10^6/uL (4.30-5.70) Hemoglobin 12.7 g/dL (13.0-17.5) Hematocrit 38.9 % (39.0-53.0) Mean Corpuscular Volume 89 fL (79-100) Mean Corpuscular Hemoglobin 29 pg (25-35) Mean Corpuscular Hemoglobin Concent 33 g/dL (31-37) Red Cell Distribution Width 16.7 % (11.5-14.5) Platelet Count 118 x10^3/uL (140-400) Neutrophils (%) (Auto) 77 % (31-73) Lymphocytes (%) (Auto) 11 % (24-48) Monocytes (%) (Auto) 9 % (0-9) Eosinophils (%) (Auto) 3 % (0-3) Basophils (%) (Auto) 1 % (0-3) Neutrophils # (Auto) 4.8 x10^3/uL (1.8-7.7) Lymphocytes # (Auto) 0.7 x10^3/uL (1.0-4.8) Monocytes # (Auto) 0.5 x10^3/uL (0.0-1.1) Eosinophils # (Auto) 0.2 x10^3/uL (0.0-0.7) Basophils # (Auto) 0.0 x10^3/uL (0.0-0.2) Phosphorus Level 3.4 mg/dL (2.6-4.7) Test 07/21/19 05:45 Glucose (Fingerstick) 137 mg/dL (70-99) Laboratory Tests Test 07/20/19 13:36 07/20/19 18:00 07/20/19 18:15 07/20/19 23:56 Glucose (Fingerstick) 132 mg/dL (70-99) 108 mg/dL (70-99) 129 mg/dL (70-99) Sodium Level 145 mmol/L (136-145) Potassium Level 4.4 mmol/L (3.5-5.1) Chloride Level 110 mmol/L (98-107) Carbon Dioxide Level 31 mmol/L (21-32) Anion Gap 4 (6-14) Blood Urea Nitrogen 60 mg/dL (8-26) Creatinine 2.4 mg/dL (0.7-1.3) Estimated GFR (Cockcroft-Gault) 26.7 Glucose Level 108 mg/dL (70-99) Calcium Level 7.4 mg/dL (8.5-10.1) Magnesium Level 2.2 mg/dL (1.8-2.4) Test 07/21/19 05:00 07/21/19 05:45 White Blood Count 6.2 x10^3/uL (4.0-11.0) Red Blood Count 4.36 x10^6/uL (4.30-5.70) Hemoglobin 12.7 g/dL (13.0-17.5) Hematocrit 38.9 % (39.0-53.0) Mean Corpuscular Volume 89 fL (79-100) Mean Corpuscular Hemoglobin 29 pg (25-35) Mean Corpuscular Hemoglobin Concent 33 g/dL (31-37) Red Cell Distribution Width 16.7 % (11.5-14.5) Platelet Count 118 x10^3/uL (140-400) Neutrophils (%) (Auto) 77 % (31-73) Lymphocytes (%) (Auto) 11 % (24-48) Monocytes (%) (Auto) 9 % (0-9) Eosinophils (%) (Auto) 3 % (0-3) Basophils (%) (Auto) 1 % (0-3) Neutrophils # (Auto) 4.8 x10^3/uL (1.8-7.7) Lymphocytes # (Auto) 0.7 x10^3/uL (1.0-4.8) Monocytes # (Auto) 0.5 x10^3/uL (0.0-1.1) Eosinophils # (Auto) 0.2 x10^3/uL (0.0-0.7) Basophils # (Auto) 0.0 x10^3/uL (0.0-0.2) Sodium Level 143 mmol/L (136-145) Potassium Level 4.1 mmol/L (3.5-5.1) Chloride Level 110 mmol/L (98-107) Carbon Dioxide Level 26 mmol/L (21-32) Anion Gap 7 (6-14) Blood Urea Nitrogen 62 mg/dL (8-26) Creatinine 2.1 mg/dL (0.7-1.3) Estimated GFR (Cockcroft-Gault) 31.1 Glucose Level 150 mg/dL (70-99) Calcium Level 7.5 mg/dL (8.5-10.1) Phosphorus Level 3.4 mg/dL (2.6-4.7) Magnesium Level 2.4 mg/dL (1.8-2.4) Glucose (Fingerstick) 137 mg/dL (70-99) Microbiology 07/17/19 Urine Culture - Final, Complete 07/17/19 Urine Culture Result 1 (BOYD) - Final, Complete 07/17/19 Blood Culture - Preliminary, Resulted NO GROWTH AFTER 4 DAYS 07/17/19 Nose/Throat Culture - Final, Complete 07/17/19 - Final, Complete Medications Current Medications Nitroglycerin (Nitrostat) 0.4 mg STK-MED ONCE SL ; Start 07/17/19 at 04:28; Stop 07/17/19 at 04:28; Status DC Nitroglycerin (Nitrostat) 0.4 mg 1X ONCE SL Last administered on 07/17/19at 04:29; Start 07/17/19 at 04:30; Stop 07/17/19 at 04:43; Status DC Nitroglycerin/ Dextrose 250 ml @ 0 mls/hr 1X ONCE IV Last administered on 07/17/19at 04:47; Start 07/17/19 at 04:45; Stop 07/17/19 at 04:46; Status DC Rocuronium [place] (Zemuron) 50 mg 1X ONCE IV Last administered on 07/17/19at 04:44; Start 07/17/19 at 04:45; Stop 07/17/19 at 04:46; Status DC Etomidate (Amidate) 20 mg 1X ONCE IV Last administered on 07/17/19at 04:43; Start 07/17/19 at 04:45; Stop 07/17/19 at 04:46; Status DC Propofol 100 ml @ 0 mls/hr CONT PRN IV SEE PROTOCOL Last administered on 07/17/19at 05:45; Start 07/17/19 at 05:15 Aspirin (Aspirin Rectal Supp) 300 mg 1X ONCE RI Last administered on 07/17/19at 06:01; Start 07/17/19 at 05:45; Stop 07/17/19 at 05:46; Status DC Bumetanide (Bumex) 1 mg 1X ONCE IV Last administered on 07/17/19at 06:00; Start 07/17/19 at 06:00; Stop 07/17/19 at 06:01; Status DC Piperacillin Sod/ Tazobactam Sod 4.5 gm/Sodium Chloride 100 ml @ 200 mls/hr 1X ONCE IV Last administered on 07/17/19at 11:14; Start 07/17/19 at 06:00; Stop 07/17/19 at 06:29; Status DC Vancomycin HCl (Vanco Per Pharmacy) 1 each PRN DAILY PRN MC SEE COMMENTS Last administered on 07/17/19at 06:43; Start 07/17/19 at 06:00; Stop 07/17/19 at 10:41; Status DC Vancomycin HCl 2 gm/Sodium Chloride 500 ml @ 250 mls/hr 1X ONCE IV Last administered on 07/17/19at 06:15; Start 07/17/19 at 06:00; Stop 07/17/19 at 07:59; Status DC Ondansetron HCl (Zofran) 4 mg PRN Q8HRS PRN IV NAUSEA/VOMITING; Start 07/17/19 at 06:00; Stop 07/18/19 at 05:59; Status DC Norepinephrine Bitartrate 8 mg/ Dextrose 258 ml @ 0 mls/hr CONT PRN IV SEE I/O RECORD Last administered on 07/17/19at 21:52; Start 07/17/19 at 06:30; Stop 07/18/19 at 13:40; Status DC Vancomycin HCl 1.75 gm/Sodium Chloride 500 ml @ 250 mls/hr Q24H IV ; Start 07/18/19 at 06:30; Stop 07/17/19 at 10:38; Status DC Vancomycin HCl (Vancomycin Trough Level) 1 each 1X ONCE MC ; Start 07/19/19 at 06:00; Stop 07/19/19 at 06:01; Status Cancel Morphine Sulfate (Morphine Sulfate) 6 mg 1X ONCE IV Last administered on 07/17/19at 07:08; Start 07/17/19 at 07:15; Stop 07/17/19 at 07:16; Status DC Midazolam HCl 100 ml @ 0 mls/hr CONT PRN IV SEE PROTOCOL Last administered on 07/21/19at 05:02; Start 07/17/19 at 07:15 Morphine Sulfate (Morphine Sulfate) 4 mg PRN Q1HR PRN IV SEE COMMENTS.; Start 07/17/19 at 08:00; Stop 07/17/19 at 10:38; Status DC Heparin Sodium (Porcine) (Heparin Sodium) 5,000 unit Q12HR SQ ; Start 07/17/19 at 21:00; Stop 07/17/19 at 10:38; Status DC Amiodarone HCl (Cordarone) 200 mg DAILY PO Last administered on 07/21/19at 09:04; Start 07/18/19 at 09:00 Metolazone (Zaroxolyn) 2.5 mg QODAY PO ; Start 07/19/19 at 09:00; Stop 07/18/19 at 10:36; Status DC Potassium Chloride (Klor-Con) 20 meq BIDWMEALS PO Last administered on 07/17/19at 16:34; Start 07/17/19 at 17:00; Stop 07/18/19 at 10:36; Status DC Furosemide (Lasix) 40 mg BID92 IVP Last administered on 07/18/19at 08:03; Start 07/17/19 at 14:00; Stop 07/20/19 at 11:02; Status DC Morphine Sulfate (Morphine Sulfate) 2 mg PRN Q4HRS PRN IV SEE COMMENTS.; Start 07/17/19 at 10:30; Status Cancel Apixaban (Eliquis) 5 mg BID FT Last administered on 07/21/19at 09:13; Start 07/17/19 at 21:00 Insulin Human Lispro (HumaLOG) 0-6 UNITS Q6HRS SQ ; Start 07/17/19 at 12:00 Lansoprazole (Prevacid) 30 mg DAILY FT Last administered on 07/21/19at 09:03; Start 07/18/19 at 09:00 Acetaminophen (Tylenol) 650 mg PRN Q6HRS PRN FT MILD PAIN / TEMP > 100.3'F; Start 07/17/19 at 10:30 Alprazolam (Xanax) 1 mg BID FT ; Start 07/17/19 at 21:00 Magnesium Hydroxide (Milk Of Magnesia) 2,400 mg PRN DAILY PRN FT CONSTIPATION; Start 07/17/19 at 10:30 Dexmedetomidine HCl 400 mcg/ Sodium Chloride 100 ml @ 0 mls/hr CONT PRN IV PER PROTOCOL Last administered on 07/20/19at 13:31; Start 07/17/19 at 11:00 Sodium Chloride 500 ml @ 500 mls/hr 1X PRN PRN IV SEE COMMENTS; Start 07/17/19 at 11:00 Atropine Sulfate (ATROPINE 0.5mg SYRINGE) 0.5 mg PRN Q5MIN PRN IV SEE COMMENTS; Start 07/17/19 at 11:00 Morphine Sulfate (Morphine Sulfate) 2 mg PRN Q1HR PRN IV SEE COMMENTS. Last administered on 07/17/19at 13:37; Start 07/17/19 at 11:15 Morphine Sulfate (Morphine Sulfate) 4 mg PRN Q1HR PRN IV SEE COMMENTS. Last administered on 07/18/19at 13:53; Start 07/17/19 at 11:15 Piperacillin Sod/ Tazobactam Sod 2.25 gm/Sodium Chloride 50 ml @ 100 mls/hr Q6HRS IV Last administered on 07/21/19at 05:42; Start 07/17/19 at 18:00 Magnesium Sulfate 50 ml @ 25 mls/hr 1X ONCE IV Last administered on 07/18/19at 08:04; Start 07/18/19 at 07:15; Stop 07/18/19 at 09:14; Status DC Milrinone Lactate/ Dextrose 100 ml @ 0 mls/hr CONT PRN IV SEE I/O RECORD Last administered on 07/20/19at 02:37; Start 07/18/19 at 07:15 Linezolid/Dextrose 300 ml @ 300 mls/hr Q12HR IV Last administered on 07/19/19at 21:29; Start 07/18/19 at 09:00; Stop 07/20/19 at 08:25; Status DC Info (Anti-Coagulation Monitoring By Pharmacy) 1 each PRN DAILY PRN MC SEE COMMENTS Last administered on 07/20/19at 14:42; Start 07/18/19 at 08:00 Vecuronium [place] (Norcuron Bolus) 10 mg STK-MED ONCE IV ; Start 07/18/19 at 09:12; Stop 07/18/19 at 09:12; Status DC Potassium Chloride/Water 100 ml @ 100 mls/hr 1X ONCE IV Last administered on 07/18/19at 10:04; Start 07/18/19 at 09:45; Stop 07/18/19 at 10:44; Status DC Magnesium Sulfate 50 ml @ 25 mls/hr 1X ONCE IV Last administered on 07/18/19at 10:03; Start 07/18/19 at 09:45; Stop 07/18/19 at 11:44; Status DC Norepinephrine Bitartrate 32 mg/ Dextrose 282 ml @ 0 mls/hr CONT PRN IV SEE I/O RECORD Last administered on 07/19/19at 10:39; Start 07/18/19 at 11:15 Morphine Sulfate 30 ml @ 0 mls/hr CONT PRN PRN IV PER PROTOCOL Last administered on 07/21/19at 05:04; Start 07/18/19 at 12:45 Lidocaine HCl (Xylocaine-Mpf 1% 2ml Vial) 2 ml STK-MED ONCE .ROUTE ; Start 07/18/19 at 13:05; Stop 07/18/19 at 13:05; Status DC Iodixanol (Visipaque 320) 100 ml STK-MED ONCE .ROUTE ; Start 07/18/19 at 13:05; Stop 07/18/19 at 13:06; Status DC Heparin Sodium/ Sodium Chloride 1,500 ml @ As Directed STK-MED ONCE .ROUTE ; Start 07/18/19 at 13:05; Stop 07/18/19 at 13:06; Status DC Vecuronium [place] (Norcuron Bolus) 10 mg STK-MED ONCE IV ; Start 07/18/19 at 13:49; Stop 07/18/19 at 13:49; Status DC Vecuronium [place] (Norcuron Bolus) 6 mg PRN Q4HRS PRN IV ANXIETY / AGITATION; Start 07/18/19 at 14:00 Epinephrine HCl 5 mg/Sodium Chloride 255 ml @ 32.926 mls/ hr CONT PRN IV SEE I/O RECORD; Start 07/18/19 at 14:00 Lidocaine HCl (Lidocaine 1% 20ml Vial) 20 ml STK-MED ONCE .ROUTE ; Start 07/18/19 at 14:11; Stop 07/18/19 at 14:11; Status DC Heparin Sodium (Porcine) (Heparin Sodium) 10,000 unit STK-MED ONCE .ROUTE ; Start 07/18/19 at 14:27; Stop 07/18/19 at 14:28; Status DC Heparin Sodium/ Sodium Chloride (HEPARIN for ARTERIAL LINE FLUSH) 1,000 unit 1X ONCE IART Last administered on 07/18/19at 14:45; Start 07/18/19 at 14:45; Stop 07/18/19 at 14:52; Status DC Heparin Sodium/ Sodium Chloride (HEPARIN for ARTERIAL LINE FLUSH) 1,000 unit 1X ONCE IART Last administered on 07/18/19at 14:45; Start 07/18/19 at 14:45; Stop 07/18/19 at 14:52; Status DC Iodixanol (Visipaque 320) 100 ml 1X ONCE IART Last administered on 07/18/19at 14:45; Start 07/18/19 at 14:45; Stop 07/18/19 at 14:52; Status DC Heparin Sodium (Porcine) (Heparin Sodium) 7,000 unit 1X ONCE IV Last administered on 07/18/19at 14:45; Start 07/18/19 at 14:45; Stop 07/18/19 at 14:52; Status DC Lidocaine HCl (Lidocaine 1% 20ml Vial) 20 ml 1X ONCE INJ Last administered on 07/18/19at 14:45; Start 07/18/19 at 14:45; Stop 07/18/19 at 14:52; Status DC Heparin Sodium/ Sodium Chloride 500 ml @ As Directed STK-MED ONCE .ROUTE ; Start 07/18/19 at 15:11; Stop 07/18/19 at 15:11; Status DC Ticagrelor (Brilinta) 180 mg 1X ONCE PO Last administered on 07/18/19at 16:08; Start 07/18/19 at 16:00; Stop 07/18/19 at 16:01; Status DC Digoxin (Lanoxin) 250 mcg 1X ONCE IV ; Start 07/19/19 at 06:15; Stop 07/19/19 at 06:16; Status Cancel Digoxin (Lanoxin) 250 mcg 1X ONCE IV Last administered on 07/19/19at 05:15; Start 07/19/19 at 05:15; Stop 07/19/19 at 06:11; Status DC Digoxin (Lanoxin) 250 mcg 1X ONCE IV Last administered on 07/19/19at 08:48; Start 07/19/19 at 09:00; Stop 07/19/19 at 09:01; Status DC Digoxin (Lanoxin) 250 mcg 1X ONCE IV Last administered on 07/19/19at 04:15; Start 07/19/19 at 04:10; Stop 07/19/19 at 06:15; Status DC Vecuronium [place] (Norcuron Bolus) 20 mg STK-MED ONCE IV ; Start 07/18/19 at 12:00; Stop 07/19/19 at 08:48; Status DC Potassium Chloride/Water 100 ml @ 100 mls/hr 1X ONCE IV Last administered on 07/19/19at 12:13; Start 07/19/19 at 11:45; Stop 07/19/19 at 12:44; Status DC Amiodarone HCl 150 mg/Dextrose 103 ml @ 618 mls/hr 1X ONCE IV Last administered on 07/19/19at 12:15; Start 07/19/19 at 12:00; Stop 07/19/19 at 12:09; Status DC Metoprolol Tartrate (Lopressor) 12.5 mg Q6HRS PO Last administered on 07/20/19at 06:00; Start 07/19/19 at 12:00 Amiodarone HCl (Cordarone) 300 mg STK-MED ONCE .ROUTE ; Start 07/18/19 at 16:08; Stop 07/19/19 at 16:08; Status DC Epinephrine HCl (EPINEPHrine SYRINGE) 4 mg STK-MED ONCE .ROUTE ; Start 07/18/19 at 16:08; Stop 07/19/19 at 16:08; Status DC Aspirin (Aspirin Chewable) 81 mg 1X ONCE PO Last administered on 07/19/19at 17:28; Start 07/19/19 at 17:00; Stop 07/19/19 at 17:06; Status DC Aspirin (Aspirin Chewable) 81 mg DAILYWBKFT PO Last administered on 07/21/19at 09:04; Start 07/20/19 at 08:00 Ticagrelor (Brilinta) 90 mg BID PO Last administered on 07/21/19at 09:03; Start 07/20/19 at 09:00 Ticagrelor (Brilinta) 90 mg 1X ONCE PO Last administered on 07/19/19at 17:28; Start 07/19/19 at 17:00; Stop 07/19/19 at 17:07; Status DC Info (Tpn Per Pharmacy) 1 each PRN DAILY PRN MC SEE COMMENTS Last administered on 07/20/19at 14:34; Start 07/19/19 at 17:00 Magnesium Sulfate/ Dextrose 100 ml @ 100 mls/hr 1X ONCE IV Last administered on 07/20/19at 09:40; Start 07/20/19 at 09:45; Stop 07/20/19 at 10:44; Status DC Magnesium Sulfate/ Dextrose 100 ml @ 100 mls/hr 1X ONCE IV Last administered on 07/20/19at 11:43; Start 07/20/19 at 09:45; Stop 07/20/19 at 10:44; Status DC Potassium Chloride/Water 100 ml @ 100 mls/hr Q1H IV Last administered on 07/20/19at 15:45; Start 07/20/19 at 09:45; Stop 07/20/19 at 13:44; Status DC Amiodarone HCl 450 mg/Dextrose 259 ml @ 0 mls/hr CONT PRN IV SEE I/O RECORD; Start 07/20/19 at 10:00; Status Cancel Lidocaine HCl (Lidocaine HCl 2% Abboject) 80 mg 1X ONCE IV Last administered on 07/20/19at 10:11; Start 07/20/19 at 10:00; Stop 07/20/19 at 10:03; Status DC Lidocaine HCl/ Dextrose 500 ml @ 0 mls/hr CONT PRN IV SEE I/O RECORD Last administered on 07/20/19at 10:15; Start 07/20/19 at 10:00 Furosemide (Lasix) 40 mg DAILY IVP ; Start 07/21/19 at 09:00 Sodium Chloride 90 meq/Potassium Chloride 50 meq/ Potassium Phosphate 13.6 mmol/Magnesium Sulfate 10 meq/ Calcium Gluconate 10 meq/ Multivitamins 10 ml/Chromium/ Copper/Manganese/ Seleni/Zn 1 ml/ Total Parenteral Nutrition/Amino Acids/Dextrose/ Fat Emulsion Intravenous 1,512 ml @ 63 mls/hr TPN CONT IV Last administered on 07/20/19at 22:01; Start 07/20/19 at 22:00; Stop 07/21/19 at 21:59 Active Scripts Active Toprol XL (Metoprolol Succinate) 50 Mg Tab.er.24h 50 Mg PO DAILY Metolazone 2.5 Mg Tablet 2.5 Mg PO QODAY Furosemide 40 Mg Tablet 40 Mg PO [id number] Klor-Con M20 (Potassium Chloride) 20 Meq Tab.er.prt 20 Meq PO BIDWMEALS Amiodarone Hcl 200 Mg Tablet 200 Mg PO DAILY Eliquis (Apixaban) 5 Mg Tablet 5 Mg PO BID Reported Acetaminophen 325 Mg Tablet 325 Mg PO Q6HRS Dicyclomine Hcl 10 Mg Capsule 1 Cap PO PRN TID PRN Nexium Capsule (Esomeprazole Magnesium) 40 Mg Capsule.dr 40 Mg PO DAILYAC Oxycodone Hcl Immed.release (Oxycodone Hcl) 15 Mg Tablet 15 Mg PO PRN Q12HR PRN Alprazolam 1 Mg Tablet 1 Tab PO BID Vitals/I & O Vital Sign - Last 24 Hours 07/20/19 07/20/19 07/20/19 07/20/19 10:30 10:45 11:00 11:15 Pulse 70 70 76 76 B/P (MAP) 74/40 (51) 64/32 (43) 126/46 (72) 118/46 (70) 07/20/19 07/20/19 07/20/19 07/20/19 11:38 12:00 12:00 12:00 Temp 99.2 99.2 Pulse 73 74 Resp 16 B/P (MAP) 128/51 128/48 (74) Pulse Ox 96 O2 Delivery Mechanical Ventilator Ventilator 07/20/19 07/20/19 07/20/19 07/20/19 12:07 13:00 14:02 15:02 Temp 98.4 98.4 Pulse 68 60 54 Resp 16 16 16 B/P (MAP) 138/58 (84) 118/55 (76) 127/57 (80) Pulse Ox 98 96 98 98 O2 Delivery Ventilator Ventilator Ventilator Ventilator 07/20/19 07/20/19 07/20/19 07/20/19 15:34 15:57 16:00 16:00 B/P (MAP) Pulse Ox 98 100 O2 Delivery Ventilator Ventilator Mechanical Ventilator 07/20/19 07/20/19 07/20/19 07/20/19 16:00 16:07 17:00 17:51 Pulse 52 54 55 Resp 16 16 B/P (MAP) 124/54 (77) 110/50 (70) 101/44 Pulse Ox 96 100 98 O2 Delivery Ventilator Ventilator Ventilator 07/20/19 07/20/19 07/20/19 07/20/19 17:57 18:00 18:01 19:00 Pulse 54 53 54 Resp 16 16 16 B/P (MAP) 91/41 (58) 92/40 (57) 103/43 (63) Pulse Ox 100 98 98 94 O2 Delivery Ventilator Ventilator Ventilator Ventilator 07/20/19 07/20/19 07/20/19 07/20/19 20:00 20:00 20:00 21:00 Temp 98.2 98.2 Pulse 53 53 52 Resp 16 16 B/P (MAP) 117/56 (76) 117/56 (76) 121/59 (79) Pulse Ox 100 100 O2 Delivery Ventilator Mechanical Ventilator Ventilator 07/20/19 07/20/19 07/20/19 07/20/19 21:16 22:00 23:00 23:54 Pulse 53 58 59 Resp 16 16 B/P (MAP) 126/59 (81) 125/58 (80) 129/60 Pulse Ox 99 98 98 O2 Delivery Ventilator Ventilator Ventilator 07/21/19 07/21/19 07/21/19 07/21/19 00:00 00:00 00:00 00:17 Temp 98.3 98.3 Pulse 62 62 Resp 16 B/P (MAP) 129/57 (81) 129/57 (81) Pulse Ox 99 99 O2 Delivery Mechanical Ventilator Ventilator Ventilator 07/21/19 07/21/19 07/21/19 07/21/19 01:00 02:00 03:00 04:00 Pulse 56 51 54 Resp 16 16 16 B/P (MAP) 130/59 (82) 118/53 (74) 114/52 (72) Pulse Ox 97 96 97 O2 Delivery Ventilator Ventilator Ventilator Mechanical Ventilator 07/21/19 07/21/19 07/21/19 07/21/19 04:00 04:00 04:54 05:00 Temp 98.4 98.4 Pulse 60 60 61 Resp 16 16 B/P (MAP) 138/62 (87) 138/62 (87) 132/62 (85) Pulse Ox 97 99 99 O2 Delivery Ventilator Ventilator Ventilator 07/21/19 07/21/19 07/21/19 07/21/19 05:15 05:42 05:45 06:00 Pulse 60 59 62 64 Resp 16 16 16 B/P (MAP) 99/51 (67) 120/58 124/58 (80) 99/48 (65) Pulse Ox 98 99 99 O2 Delivery Ventilator Ventilator Ventilator 07/21/19 07/21/19 07/21/19 07:42 08:00 09:04 Pulse 60 65 B/P (MAP) 116/55 Pulse Ox 100 O2 Delivery Ventilator Intake and Output 07/20/19 07/20/19 07/21/19 15:00 23:00 07:00 Intake Total 589 ml 464 ml 915 ml Output Total 291 ml 390 ml 440 ml Balance 298 ml 74 ml 475 ml RICK CAROLINA MD July 21, 2019 10:33
--- NOTE | 2019-07-21 10:37 | PDOC ---
SUBJECTIVE ROS intubated/light sedation this am Patient went into VT yesterday,Status post cardiac arrest x2 OBJECTIVE Vital Signs Vital Signs Date Time Temp Pulse Resp B/P (MAP) Pulse Ox O2 Delivery O2 Flow Rate FiO2 07/21/19 09:04 65 116/55 07/21/19 07:42 100 Ventilator 07/21/19 06:00 16 07/21/19 04:00 98.4 98.4 I & 0 Intake and Output 07/21/19 07:00 Intake Total 1968 ml Output Total 1121 ml Balance 847 ml Intake IV Total 1968 ml Output Urine Total 1121 ml PHYSICAL EXAM Physical Exam GENERAL: Intubated, sedated. HEENT: ETT and OG tube in place. NECK: Supple. HEART: S1, S2.Tachy ABDOMEN: Soft, LUNGS: Decreased at bases EXTREMITIES: Trace edema, no cyanosis. DERMATOLOGIC: Warm, dry. No generalized rash. NEUROLOGIC: Intubated, sedated. ANASTACIO Fangey + DIAGNOSIS/ASSESSMENT Assessment & Plan DONTAE - Improving , UOP adequate ATN/Cardiorenal / Supportive care , avoid nephrotoxins CKD stage 3/4 Hospitalized in May with Cr 2.1 -2.4- new baseline vs DONTAE DONTAE in May 2019 with Cr of 2.5 - Cardiorenal HyperNatremia-resolved HypoKal- normal HypoMg- Mg normal Acute on chronic respiratory failure with a/c CHF/Pneumonia ; intubated On IV Lasix , , Metolazone dced Acute on chronic systolic CHF- per Cardiology Severe cardiomyopathy; LVEF 10-15% per echo 06/12/19. S/P PCI to RCA 07/17 Leukocytosis, lactic acidosis COVID negative Shock; requiring pressor support PAFIB s/p recent CV COMMENT/RELEVANT DATA Meds Current Medications Medications (Trade) Dose Ordered Sig/Chance Start Time Stop Time Status Last Admin Dose Admin Acetaminophen (Tylenol) 650 mg PRN Q6HRS PRN 07/17/19 10:30 Alprazolam (Xanax) 1 mg BID 07/17/19 21:00 Amiodarone HCl (Cordarone) 300 mg STK-MED ONCE 07/18/19 16:08 07/19/19 16:08 DC Amiodarone HCl 150 mg/Dextrose 103 ml @ 618 mls/hr 1X ONCE 07/19/19 12:00 07/19/19 12:09 DC 07/19/19 12:15 618 MLS/HR Amiodarone HCl 450 mg/Dextrose 259 ml @ 0 mls/hr CONT PRN 07/20/19 10:00 Cancel Apixaban (Eliquis) 5 mg BID 07/17/19 21:00 07/21/19 09:13 5 MG Aspirin (Aspirin Chewable) 81 mg [id number] 07/20/19 08:00 07/21/19 09:04 81 MG Aspirin (Aspirin Rectal Supp) 300 mg 1X ONCE 07/17/19 05:45 07/17/19 05:46 DC 07/17/19 06:01 300 MG Atropine Sulfate (ATROPINE 0.5mg SYRINGE) 0.5 mg PRN Q5MIN PRN 07/17/19 11:00 Bumetanide (Bumex) 1 mg 1X ONCE 07/17/19 06:00 07/17/19 06:01 DC 07/17/19 06:00 1 MG Dexmedetomidine HCl 400 mcg/ Sodium Chloride 100 ml @ 0 mls/hr CONT PRN 07/17/19 11:00 07/20/19 13:31 8.5 MLS/HR Digoxin (Lanoxin) 250 mcg 1X ONCE 07/19/19 04:10 07/19/19 06:15 DC 07/19/19 04:15 250 MCG Epinephrine HCl (EPINEPHrine SYRINGE) 4 mg STK-MED ONCE 07/18/19 16:08 07/19/19 16:08 DC Epinephrine HCl 5 mg/Sodium Chloride 255 ml @ 32.926 mls/ hr CONT PRN 07/18/19 14:00 Etomidate (Amidate) 20 mg 1X ONCE 07/17/19 04:45 07/17/19 04:46 DC 07/17/19 04:43 20 MG Furosemide (Lasix) 40 mg DAILY 07/21/19 09:00 Heparin Sodium (Porcine) (Heparin Sodium) 7,000 unit 1X ONCE 07/18/19 14:45 07/18/19 14:52 DC 07/18/19 14:45 7,000 UNIT Heparin Sodium/ Sodium Chloride 500 ml @ As Directed STK-MED ONCE 07/18/19 15:11 07/18/19 15:11 DC Heparin Sodium/ Sodium Chloride (HEPARIN for ARTERIAL LINE FLUSH) 1,000 unit 1X ONCE 07/18/19 14:45 07/18/19 14:52 DC 07/18/19 14:45 1,000 UNIT Info (Anti-Coagulation Monitoring By Pharmacy) 1 each PRN DAILY PRN 07/18/19 08:00 07/20/19 14:42 1 EACH Info (Tpn Per Pharmacy) 1 each PRN DAILY PRN 07/19/19 17:00 07/20/19 14:34 1 EACH Insulin Human Lispro (HumaLOG) 0-6 UNITS Q6HRS 07/17/19 12:00 Iodixanol (Visipaque 320) 100 ml 1X ONCE 07/18/19 14:45 07/18/19 14:52 DC 07/18/19 14:45 104 ML Lansoprazole (Prevacid) 30 mg DAILY 07/18/19 09:00 07/21/19 09:03 30 MG Lidocaine HCl (Lidocaine 1% 20ml Vial) 20 ml 1X ONCE 07/18/19 14:45 07/18/19 14:52 DC 07/18/19 14:45 10 ML Lidocaine HCl (Lidocaine HCl 2% Abboject) 80 mg 1X ONCE 07/20/19 10:00 07/20/19 10:03 DC 07/20/19 10:11 80 MG Lidocaine HCl (Xylocaine-Mpf 1% 2ml Vial) 2 ml STK-MED ONCE 07/18/19 13:05 07/18/19 13:05 DC Lidocaine HCl/ Dextrose 500 ml @ 0 mls/hr CONT PRN 07/20/19 10:00 07/20/19 10:15 15 MLS/HR Linezolid/Dextrose 300 ml @ 300 mls/hr Q12HR 07/18/19 09:00 07/20/19 08:25 DC 07/19/19 21:29 300 MLS/HR Magnesium Hydroxide (Milk Of Magnesia) 2,400 mg PRN DAILY PRN 07/17/19 10:30 Magnesium Sulfate 50 ml @ 25 mls/hr 1X ONCE 07/18/19 09:45 07/18/19 11:44 DC 07/18/19 10:03 25 MLS/HR Magnesium Sulfate/ Dextrose 100 ml @ 100 mls/hr 1X ONCE 07/20/19 09:45 07/20/19 10:44 DC 07/20/19 11:43 100 MLS/HR Metolazone (Zaroxolyn) 2.5 mg QODAY 07/19/19 09:00 07/18/19 10:36 DC Metoprolol Tartrate (Lopressor) 12.5 mg Q6HRS 07/19/19 12:00 07/20/19 06:00 12.5 MG Midazolam HCl 100 ml @ 0 mls/hr CONT PRN 07/17/19 07:15 07/21/19 05:02 10 MLS/HR Milrinone Lactate/ Dextrose 100 ml @ 0 mls/hr CONT PRN 07/18/19 07:15 07/20/19 02:37 4.2 MLS/HR Morphine Sulfate 30 ml @ 0 mls/hr CONT PRN PRN 07/18/19 12:45 07/21/19 05:04 2 MLS/HR Morphine Sulfate (Morphine Sulfate) 4 mg PRN Q1HR PRN 07/17/19 11:15 07/18/19 13:53 4 MG Nitroglycerin (Nitrostat) 0.4 mg 1X ONCE 07/17/19 04:30 07/17/19 04:43 DC 07/17/19 04:29 0.4 MG Nitroglycerin/ Dextrose 250 ml @ 0 mls/hr 1X ONCE 07/17/19 04:45 07/17/19 04:46 DC 07/17/19 04:47 1.5 MLS/HR Norepinephrine Bitartrate 32 mg/ Dextrose 282 ml @ 0 mls/hr CONT PRN 07/18/19 11:15 07/19/19 10:39 9 MLS/HR Norepinephrine Bitartrate 8 mg/ Dextrose 258 ml @ 0 mls/hr CONT PRN 07/17/19 06:30 07/18/19 13:40 DC 07/17/19 21:52 11 MLS/HR Ondansetron HCl (Zofran) 4 mg PRN Q8HRS PRN 07/17/19 06:00 07/18/19 05:59 DC Piperacillin Sod/ Tazobactam Sod 2.25 gm/Sodium Chloride 50 ml @ 100 mls/hr Q6HRS 07/17/19 18:00 07/21/19 05:42 100 MLS/HR Piperacillin Sod/ Tazobactam Sod 4.5 gm/Sodium Chloride 100 ml @ 200 mls/hr 1X ONCE 07/17/19 06:00 07/17/19 06:29 DC 07/17/19 11:14 200 MLS/HR Potassium Chloride/Water 100 ml @ 100 mls/hr Q1H 07/20/19 09:45 07/20/19 13:44 DC 07/20/19 15:45 100 MLS/HR Potassium Chloride (Klor-Con) 20 meq BIDWMEALS 07/17/19 17:00 07/18/19 10:36 DC 07/17/19 16:34 20 MEQ Propofol 100 ml @ 0 mls/hr CONT PRN 07/17/19 05:15 07/17/19 05:45 1.7 MLS/HR Rocuronium [place] (Zemuron) 50 mg 1X ONCE 07/17/19 04:45 07/17/19 04:46 DC 07/17/19 04:44 50 MG Sodium Chloride 90 meq/Potassium Chloride 50 meq/ Potassium Phosphate 13.6 mmol/Magnesium Sulfate 10 meq/ Calcium Gluconate 10 meq/ Multivitamins 10 ml/Chromium/ Copper/Manganese/ Seleni/Zn 1 ml/ Total Parenteral Nutrition/Amino Acids/Dextrose/ Fat Emulsion Intravenous 1,512 ml @ 63 mls/hr TPN CONT 07/20/19 22:00 07/21/19 21:59 07/20/19 22:01 63 MLS/HR Ticagrelor (Brilinta) 90 mg 1X ONCE 07/19/19 17:00 07/19/19 17:07 DC 07/19/19 17:28 90 MG Vancomycin HCl (Vanco Per Pharmacy) 1 each PRN DAILY PRN 07/17/19 06:00 07/17/19 10:41 DC 07/17/19 06:43 1 EACH Vancomycin HCl (Vancomycin Trough Level) 1 each 1X ONCE 07/19/19 06:00 07/19/19 06:01 Cancel Vancomycin HCl 1.75 gm/Sodium Chloride 500 ml @ 250 mls/hr Q24H 07/18/19 06:30 07/17/19 10:38 DC Vancomycin HCl 2 gm/Sodium Chloride 500 ml @ 250 mls/hr 1X ONCE 07/17/19 06:00 07/17/19 07:59 DC 07/17/19 06:15 250 MLS/HR Vecuronium [place] (Norcuron Bolus) 20 mg STK-MED ONCE 07/18/19 12:00 07/19/19 08:48 DC Lab Laboratory Tests Test 07/20/19 13:36 07/20/19 18:00 07/20/19 18:15 07/20/19 23:56 Glucose (Fingerstick) 132 mg/dL (70-99) 108 mg/dL (70-99) 129 mg/dL (70-99) Sodium Level 145 mmol/L (136-145) Potassium Level 4.4 mmol/L (3.5-5.1) Chloride Level 110 mmol/L (98-107) Carbon Dioxide Level 31 mmol/L (21-32) Anion Gap 4 (6-14) Blood Urea Nitrogen 60 mg/dL (8-26) Creatinine 2.4 mg/dL (0.7-1.3) Estimated GFR (Cockcroft-Gault) 26.7 Glucose Level 108 mg/dL (70-99) Calcium Level 7.4 mg/dL (8.5-10.1) Magnesium Level 2.2 mg/dL (1.8-2.4) Test 07/21/19 05:00 07/21/19 05:45 White Blood Count 6.2 x10^3/uL (4.0-11.0) Red Blood Count 4.36 x10^6/uL (4.30-5.70) Hemoglobin 12.7 g/dL (13.0-17.5) Hematocrit 38.9 % (39.0-53.0) Mean Corpuscular Volume 89 fL (79-100) Mean Corpuscular Hemoglobin 29 pg (25-35) Mean Corpuscular Hemoglobin Concent 33 g/dL (31-37) Red Cell Distribution Width 16.7 % (11.5-14.5) Platelet Count 118 x10^3/uL (140-400) Neutrophils (%) (Auto) 77 % (31-73) Lymphocytes (%) (Auto) 11 % (24-48) Monocytes (%) (Auto) 9 % (0-9) Eosinophils (%) (Auto) 3 % (0-3) Basophils (%) (Auto) 1 % (0-3) Neutrophils # (Auto) 4.8 x10^3/uL (1.8-7.7) Lymphocytes # (Auto) 0.7 x10^3/uL (1.0-4.8) Monocytes # (Auto) 0.5 x10^3/uL (0.0-1.1) Eosinophils # (Auto) 0.2 x10^3/uL (0.0-0.7) Basophils # (Auto) 0.0 x10^3/uL (0.0-0.2) Sodium Level 143 mmol/L (136-145) Potassium Level 4.1 mmol/L (3.5-5.1) Chloride Level 110 mmol/L (98-107) Carbon Dioxide Level 26 mmol/L (21-32) Anion Gap 7 (6-14) Blood Urea Nitrogen 62 mg/dL (8-26) Creatinine 2.1 mg/dL (0.7-1.3) Estimated GFR (Cockcroft-Gault) 31.1 Glucose Level 150 mg/dL (70-99) Calcium Level 7.5 mg/dL (8.5-10.1) Phosphorus Level 3.4 mg/dL (2.6-4.7) Magnesium Level 2.4 mg/dL (1.8-2.4) Glucose (Fingerstick) 137 mg/dL (70-99) Results All relevant outside records, renal labs, imaging studies, telemetry/EKG's were reviewed. GYPSY COLEMAN MD July 21, 2019 10:37
[2019-07-21] MEDS: TPN PER PHARMACY MC PRN (11:58)
--- NOTE | 2019-07-21 11:58 | NUR ---
Pharmacy TPN Dosing Note S: MALKA THOMPSON is a 74 year old M Currently receiving Central Continuous TPN started 07/20/19 B:Pertinent PMH: HIGH GASTRIC RESIDUAL WITH TF Height: 5 feet, 10 inches Weight: 107.766545 kg Current diet: NPO LABS: Sodium: 143 Potassium: 4.1 Chloride: 110 Calcium: 7.5 Corrected Calcium: 8.62 Magnesium: 2.4 CO2: 26 SCr: 2.1 Glucose: 137-150 Albumin: 2.6 AST: 34 ALT: 22 TPN FORMULA: TPN TYPE: Central Continuous AMINO ACIDS: 110 gm DEXTROSE: 225 gm LIPIDS: 20 gm SODIUM CHLORIDE: 90 mEq POTASSIUM CHLORIDE: 50 mEq POTASSIUM PHOSPHATE: 13.6 mmol MAGNESIUM: 10 mEq CALCIUM: 10 mEq MULTIPLE VITAMIN: 10 ml TRACE ELEMENTS: (MTE 5) 1ml(s) TPN PLAN: Electrolytes stable. Cont current TPN formula. -BMP, Magnesium and Phosphorus labs in AM. R: Continue same TPN formula. Will monitor electrolytes, glucose, and tolerance to TPN. [facility], 07/21/19 0071
[2019-07-21 12:39] LABS: FIO2 ABG 50% VENT
--- NOTE | 2019-07-21 14:13 | PDOC ---
SABINO REYNAGA [employer]IAN 07/21/19 1413: CARDIO Progress Notes Date and Time Date of Service 07/21/2019 Time of Evaluation 1055 Subjective Subjective: Other (intubated) Vitals Vitals Vital Signs Date Time Temp Pulse Resp B/P (MAP) Pulse Ox O2 Delivery O2 Flow Rate FiO2 07/21/19 12:57 98 Ventilator 07/21/19 09:04 65 116/55 07/21/19 06:00 16 07/21/19 04:00 98.4 98.4 Weight Weight [ ] Input and Output Intake and Output Intake and Output 07/21/19 07:00 Intake Total 1968 ml Output Total 1121 ml Balance 847 ml Intake IV Total 1968 ml Output Urine Total 1121 ml Laboratory Labs Laboratory Tests Test 07/20/19 18:00 07/20/19 18:15 07/20/19 23:56 07/21/19 05:00 Sodium Level 145 mmol/L (136-145) 143 mmol/L (136-145) Potassium Level 4.4 mmol/L (3.5-5.1) 4.1 mmol/L (3.5-5.1) Chloride Level 110 mmol/L (98-107) 110 mmol/L (98-107) Carbon Dioxide Level 31 mmol/L (21-32) 26 mmol/L (21-32) Anion Gap 4 (6-14) 7 (6-14) Blood Urea Nitrogen 60 mg/dL (8-26) 62 mg/dL (8-26) Creatinine 2.4 mg/dL (0.7-1.3) 2.1 mg/dL (0.7-1.3) Estimated GFR (Cockcroft-Gault) 26.7 31.1 Glucose Level 108 mg/dL (70-99) 150 mg/dL (70-99) Calcium Level 7.4 mg/dL (8.5-10.1) 7.5 mg/dL (8.5-10.1) Magnesium Level 2.2 mg/dL (1.8-2.4) 2.4 mg/dL (1.8-2.4) Glucose (Fingerstick) 108 mg/dL (70-99) 129 mg/dL (70-99) White Blood Count 6.2 x10^3/uL (4.0-11.0) Red Blood Count 4.36 x10^6/uL (4.30-5.70) Hemoglobin 12.7 g/dL (13.0-17.5) Hematocrit 38.9 % (39.0-53.0) Mean Corpuscular Volume 89 fL (79-100) Mean Corpuscular Hemoglobin 29 pg (25-35) Mean Corpuscular Hemoglobin Concent 33 g/dL (31-37) Red Cell Distribution Width 16.7 % (11.5-14.5) Platelet Count 118 x10^3/uL (140-400) Neutrophils (%) (Auto) 77 % (31-73) Lymphocytes (%) (Auto) 11 % (24-48) Monocytes (%) (Auto) 9 % (0-9) Eosinophils (%) (Auto) 3 % (0-3) Basophils (%) (Auto) 1 % (0-3) Neutrophils # (Auto) 4.8 x10^3/uL (1.8-7.7) Lymphocytes # (Auto) 0.7 x10^3/uL (1.0-4.8) Monocytes # (Auto) 0.5 x10^3/uL (0.0-1.1) Eosinophils # (Auto) 0.2 x10^3/uL (0.0-0.7) Basophils # (Auto) 0.0 x10^3/uL (0.0-0.2) Phosphorus Level 3.4 mg/dL (2.6-4.7) Test 07/21/19 05:45 07/21/19 09:00 Glucose (Fingerstick) 137 mg/dL (70-99) O2 Saturation 97 % (92-99) Arterial Blood pH 7.42 (7.35-7.45) Arterial Blood pCO2 at Patient Temp 45 mmHg (35-46) Arterial Blood pO2 at Patient Temp 100 mmHg (65-108) Arterial Blood HCO3 29 mmol/L (21-28) Arterial Blood Base Excess 4 mmol/L (-3-3) FiO2 50% vent Microbiology Micro Microbiology 07/17/19 Urine Culture - Final, Complete 07/17/19 Urine Culture Result 1 (BOYD) - Final, Complete 07/17/19 Blood Culture - Preliminary, Resulted NO GROWTH AFTER 4 DAYS 07/17/19 Nose/Throat Culture - Final, Complete 07/17/19 - Final, Complete Physical Exam HEENT: Neck Supple W Full Motion Chest: Symmetric LUNGS: Other (mechanical vent) Heart: RRR (SR) Abdomen: Other (soft) Extremities: Other (1+ bilateral LE edema) Neurology: other (sedated/intubated) Assessment Assessment 1. Acute on chronic respiratory failure with a/c CHF, PNA;remains intubated. COVID negative 2. Acute on chronic systolic CHF: improving 3. ICM/NICM; EF better at 40-45% 4. CAD; s/p PCI/DARSHAN to the RCA 5. Septic shock; off pressors 6 DONTAE on CKD; cardiorenal syndrome. Cr better at 2.1 7. Arrhythmia: noted with PAFIB/RVR and polymorphic VT with multiple CVN yesterday. Recommendations 1. Off pressors. Rhythm stable. Stop lidocaine drip and will increase PO amiodarone. 2. Eliquis/ASA/Brilinta 3. Continue lopressor, secondary prevention measures 4. Lasix therapy Kepp Mg and K at least 2.0 and 4.0 respectively VENU YODER MD 07/21/19 1553: CARDIO Progress Notes Plan Plan Pt. seen and examined. Agree with above [facility] note. Supportive care. Stop lidocaine. increase amio to 400mg daily await extubation. thanks SABINO REYNAGA LAW LIBRARIAN July 21, 2019 14:13 VENU YODER MD July 21, 2019 15:53
[2019-07-21] MEDS ORDERED: POTASSIUM CHLORIDE 20 MEQ TABLET.ER. PO ONE (14:30)
--- NOTE | 2019-07-21 15:06 | PDOC ---
PULMONARY PROGRESS NOTES Subjective Remains on AC control 50% FiO2 5 of PEEP Currently on IV lidocaine, off norepinephrine Vitals Vital Signs Date Time Temp Pulse Resp B/P (MAP) Pulse Ox O2 Delivery O2 Flow Rate FiO2 07/21/19 12:57 98 Ventilator 07/21/19 12:00 98.4 72 16 96/12 (40) 98.4 HEENT: Other Lungs: Clear Cardiovascular: S1, S2 Abdomen: Soft Extremities: Other (edema) Skin: Warm Labs Laboratory Tests Test 07/19/19 17:49 07/19/19 23:56 07/20/19 05:00 07/20/19 05:25 Glucose (Fingerstick) 129 mg/dL (70-99) 145 mg/dL (70-99) 121 mg/dL (70-99) White Blood Count 7.7 x10^3/uL (4.0-11.0) Red Blood Count 4.59 x10^6/uL (4.30-5.70) Hemoglobin 13.2 g/dL (13.0-17.5) Hematocrit 40.7 % (39.0-53.0) Mean Corpuscular Volume 89 fL (79-100) Mean Corpuscular Hemoglobin 29 pg (25-35) Mean Corpuscular Hemoglobin Concent 33 g/dL (31-37) Red Cell Distribution Width 15.9 % (11.5-14.5) Platelet Count 117 x10^3/uL (140-400) Neutrophils (%) (Auto) 76 % (31-73) Lymphocytes (%) (Auto) 13 % (24-48) Monocytes (%) (Auto) 9 % (0-9) Eosinophils (%) (Auto) 1 % (0-3) Basophils (%) (Auto) 1 % (0-3) Neutrophils # (Auto) 5.9 x10^3/uL (1.8-7.7) Lymphocytes # (Auto) 1.0 x10^3/uL (1.0-4.8) Monocytes # (Auto) 0.7 x10^3/uL (0.0-1.1) Eosinophils # (Auto) 0.1 x10^3/uL (0.0-0.7) Basophils # (Auto) 0.1 x10^3/uL (0.0-0.2) Sodium Level 146 mmol/L (136-145) Potassium Level 3.7 mmol/L (3.5-5.1) Chloride Level 108 mmol/L (98-107) Carbon Dioxide Level 31 mmol/L (21-32) Anion Gap 7 (6-14) Blood Urea Nitrogen 58 mg/dL (8-26) Creatinine 2.7 mg/dL (0.7-1.3) Estimated GFR (Cockcroft-Gault) 23.3 Glucose Level 128 mg/dL (70-99) Calcium Level 7.7 mg/dL (8.5-10.1) Magnesium Level 2.0 mg/dL (1.8-2.4) Test 07/20/19 08:00 07/20/19 09:02 07/20/19 13:36 07/20/19 18:00 O2 Saturation 95 % (92-99) Arterial Blood pH 7.46 (7.35-7.45) Arterial Blood pCO2 at Patient Temp 40 mmHg (35-46) Arterial Blood pO2 at Patient Temp 75 mmHg (65-108) Arterial Blood HCO3 28 mmol/L (21-28) Arterial Blood Base Excess 4 mmol/L (-3-3) FiO2 40% vent Glucose (Fingerstick) 109 mg/dL (70-99) 132 mg/dL (70-99) Sodium Level 145 mmol/L (136-145) Potassium Level 4.4 mmol/L (3.5-5.1) Chloride Level 110 mmol/L (98-107) Carbon Dioxide Level 31 mmol/L (21-32) Anion Gap 4 (6-14) Blood Urea Nitrogen 60 mg/dL (8-26) Creatinine 2.4 mg/dL (0.7-1.3) Estimated GFR (Cockcroft-Gault) 26.7 Glucose Level 108 mg/dL (70-99) Calcium Level 7.4 mg/dL (8.5-10.1) Magnesium Level 2.2 mg/dL (1.8-2.4) Test 07/20/19 18:15 07/20/19 23:56 07/21/19 05:00 07/21/19 05:45 Glucose (Fingerstick) 108 mg/dL (70-99) 129 mg/dL (70-99) 137 mg/dL (70-99) White Blood Count 6.2 x10^3/uL (4.0-11.0) Red Blood Count 4.36 x10^6/uL (4.30-5.70) Hemoglobin 12.7 g/dL (13.0-17.5) Hematocrit 38.9 % (39.0-53.0) Mean Corpuscular Volume 89 fL (79-100) Mean Corpuscular Hemoglobin 29 pg (25-35) Mean Corpuscular Hemoglobin Concent 33 g/dL (31-37) Red Cell Distribution Width 16.7 % (11.5-14.5) Platelet Count 118 x10^3/uL (140-400) Neutrophils (%) (Auto) 77 % (31-73) Lymphocytes (%) (Auto) 11 % (24-48) Monocytes (%) (Auto) 9 % (0-9) Eosinophils (%) (Auto) 3 % (0-3) Basophils (%) (Auto) 1 % (0-3) Neutrophils # (Auto) 4.8 x10^3/uL (1.8-7.7) Lymphocytes # (Auto) 0.7 x10^3/uL (1.0-4.8) Monocytes # (Auto) 0.5 x10^3/uL (0.0-1.1) Eosinophils # (Auto) 0.2 x10^3/uL (0.0-0.7) Basophils # (Auto) 0.0 x10^3/uL (0.0-0.2) Sodium Level 143 mmol/L (136-145) Potassium Level 4.1 mmol/L (3.5-5.1) Chloride Level 110 mmol/L (98-107) Carbon Dioxide Level 26 mmol/L (21-32) Anion Gap 7 (6-14) Blood Urea Nitrogen 62 mg/dL (8-26) Creatinine 2.1 mg/dL (0.7-1.3) Estimated GFR (Cockcroft-Gault) 31.1 Glucose Level 150 mg/dL (70-99) Calcium Level 7.5 mg/dL (8.5-10.1) Phosphorus Level 3.4 mg/dL (2.6-4.7) Magnesium Level 2.4 mg/dL (1.8-2.4) Test 07/21/19 09:00 O2 Saturation 97 % (92-99) Arterial Blood pH 7.42 (7.35-7.45) Arterial Blood pCO2 at Patient Temp 45 mmHg (35-46) Arterial Blood pO2 at Patient Temp 100 mmHg (65-108) Arterial Blood HCO3 29 mmol/L (21-28) Arterial Blood Base Excess 4 mmol/L (-3-3) FiO2 50% vent Laboratory Tests Test 07/20/19 18:00 07/20/19 18:15 07/20/19 23:56 07/21/19 05:00 Sodium Level 145 mmol/L (136-145) 143 mmol/L (136-145) Potassium Level 4.4 mmol/L (3.5-5.1) 4.1 mmol/L (3.5-5.1) Chloride Level 110 mmol/L (98-107) 110 mmol/L (98-107) Carbon Dioxide Level 31 mmol/L (21-32) 26 mmol/L (21-32) Anion Gap 4 (6-14) 7 (6-14) Blood Urea Nitrogen 60 mg/dL (8-26) 62 mg/dL (8-26) Creatinine 2.4 mg/dL (0.7-1.3) 2.1 mg/dL (0.7-1.3) Estimated GFR (Cockcroft-Gault) 26.7 31.1 Glucose Level 108 mg/dL (70-99) 150 mg/dL (70-99) Calcium Level 7.4 mg/dL (8.5-10.1) 7.5 mg/dL (8.5-10.1) Magnesium Level 2.2 mg/dL (1.8-2.4) 2.4 mg/dL (1.8-2.4) Glucose (Fingerstick) 108 mg/dL (70-99) 129 mg/dL (70-99) White Blood Count 6.2 x10^3/uL (4.0-11.0) Red Blood Count 4.36 x10^6/uL (4.30-5.70) Hemoglobin 12.7 g/dL (13.0-17.5) Hematocrit 38.9 % (39.0-53.0) Mean Corpuscular Volume 89 fL (79-100) Mean Corpuscular Hemoglobin 29 pg (25-35) Mean Corpuscular Hemoglobin Concent 33 g/dL (31-37) Red Cell Distribution Width 16.7 % (11.5-14.5) Platelet Count 118 x10^3/uL (140-400) Neutrophils (%) (Auto) 77 % (31-73) Lymphocytes (%) (Auto) 11 % (24-48) Monocytes (%) (Auto) 9 % (0-9) Eosinophils (%) (Auto) 3 % (0-3) Basophils (%) (Auto) 1 % (0-3) Neutrophils # (Auto) 4.8 x10^3/uL (1.8-7.7) Lymphocytes # (Auto) 0.7 x10^3/uL (1.0-4.8) Monocytes # (Auto) 0.5 x10^3/uL (0.0-1.1) Eosinophils # (Auto) 0.2 x10^3/uL (0.0-0.7) Basophils # (Auto) 0.0 x10^3/uL (0.0-0.2) Phosphorus Level 3.4 mg/dL (2.6-4.7) Test 07/21/19 05:45 07/21/19 09:00 Glucose (Fingerstick) 137 mg/dL (70-99) O2 Saturation 97 % (92-99) Arterial Blood pH 7.42 (7.35-7.45) Arterial Blood pCO2 at Patient Temp 45 mmHg (35-46) Arterial Blood pO2 at Patient Temp 100 mmHg (65-108) Arterial Blood HCO3 29 mmol/L (21-28) Arterial Blood Base Excess 4 mmol/L (-3-3) FiO2 50% vent Medications Active Scripts Medications Dose Route/Sig Max Daily Dose Days Date Category Toprol XL (Metoprolol Succinate) 50 Mg Tab.er.24h 50 Mg PO DAILY 06/20/19 Rx Metolazone 2.5 Mg Tablet 2.5 Mg PO QODAY 06/20/19 Rx Furosemide 40 Mg Tablet 40 Mg PO BID92 06/20/19 Rx Klor-Con M20 (Potassium Chloride) 20 Meq Tab.er.prt 20 Meq PO BIDWMEALS 06/20/19 Rx Amiodarone Hcl 200 Mg Tablet 200 Mg PO DAILY 06/20/19 Rx Eliquis (Apixaban) 5 Mg Tablet 5 Mg PO BID 06/20/19 Rx Acetaminophen 325 Mg Tablet 325 Mg PO Q6HRS 06/13/19 Reported Dicyclomine Hcl 10 Mg Capsule 1 Cap PO PRN TID PRN 05/17/19 Reported Nexium Capsule (Esomeprazole Magnesium) 40 Mg Capsule.dr 40 Mg PO DAILYAC 05/17/19 Reported Oxycodone Hcl Immed.release (Oxycodone Hcl) 15 Mg Tablet 15 Mg PO PRN Q12HR PRN 05/17/19 Reported Alprazolam 1 Mg Tablet 1 Tab PO BID 02/05/17 Reported Impression . IMPRESSION: 1. Acute hypoxemic hypercapnic respiratory failure. 2. Bilateral pulmonary infiltrates, suspect combination of congestive heart failure and pneumonia. 3. Sepsis. 4. SARS-CoV 2, negative 5. Cardiomyopathy, ejection fraction of 15%. 6. Chronic atrial fibrillation. 7. Chronic kidney disease. 8. Acute on chronic systolic heart failure. 9. Hypotension, requiring pressors, suspect secondary to sepsis. 10. Mild elevation in troponin. 11. Paroxysmal atrial fibrillation with recent cardioversion. 12. Status post CODE BLUE secondary to V. tach/coronary artery disease see below Conclusion 1. Normal biventricular filling pressures. 2. Mild pulmonary HTN 3. Normal cardiac output at 5.1 L/min 4. One vessel coronary disease. 5. Successful PCI of the RCA as described above 6. Patient had one episode of SVT with hypotension requiring synchronized cardioversion to SR. Recommendations ASA 81mg daily Ticagrelor 90mg bid Will restart Eliquis at low dose if stable overnight. His hypotension is likely vasoplegic/septic shock, rather than cardiac in origin as evidenced by his normal cardiac output. Cardiac arrest this morning likely sequalae of electrolyte disturbances. Plan . IV lidocaine Continue assist control, ABG now Follow cardiology Case discussed with RN Continue empiric antibiotics Repeat chest X Follow cardiology input GI DVT prophylaxis Total cumulative critical care time of 30 minminutes. The patient was seen during a COVID-19 pandemic. Chest x-ray reviewed Impression: 1. There is persistent bilateral airspace opacity likely due to infiltrates and/or edema with basilar predominance, somewhat increased of the mid hemithoraces. There are again likely at least small bilateral pleural effusions greater on the left. JUAN J CLARK MD July 21, 2019 15:06
[2019-07-21] MEDS ORDERED: AMIODARONE HCL 200 MG TABLET. PO ONE (15:15)
[2019-07-21 15:41] LABS: ALBUMIN 1.8 g/dL (3.4-5.0); DIRECT BILIRUBIN 0.3 mg/dL (0.0-0.2)
--- NOTE | 2019-07-21 16:03 | NUR ---
SS following up with discharge planning. SS reviewed pt chart and discussed with pt RN. Per RN, pt doing better today. Pt remains on the vent with TPN. Possible extubation over the weekend if pt continues to improve. SS will continue to follow for discharge planning.
[2019-07-21] MEDS ORDERED: [UNRECOGNIZED DRUG - OTHER] IV SCH ×10 (22:00)
[2019-07-21] MEDS ORDERED: DEXTROSE 70% IV SCH ×10 (22:00)
[2019-07-21] MEDS ORDERED: AMINO ACID IV SCH ×10 (22:00)
[2019-07-21] MEDS ORDERED: TOTAL PARENTERAL NUTRITION IV SCH ×10 (22:00)
[2019-07-22] VITALS (24 sets, daily range): BP systolic 92–157; BP diastolic 42–69
[2019-07-22] MEDS: METOPROLOL TART IMMED RELEASE 25 MG TABLET. PO SCH ×4 (05:43→23:42)
[2019-07-22] MEDS: INSULIN LISPRO 300 UNITS/3 ML VIAL. SQ SCH ×4 (05:43→23:43)
[2019-07-22] MEDS: PIPERACILLIN/TAZOBACTAM 2.25 GM in IV NORMAL SALINE 50ML 50 ML IV SCH (05:46)
[2019-07-22 05:55] LABS: BASO % 0 % (0-3); EOS # 0.2 x10^3/uL (0.0-0.7); EOS % 4 % (0-3); HEMATOCRIT 33.9 % (39.0-53.0); HEMOGLOBIN 11.3 g/dL (13.0-17.5); LYMPH # 0.5 x10^3/uL (1.0-4.8); LYMPH % 12 % (24-48); MEAN CORPUSCULAR HEMOGLOBIN 30 pg (25-35); MEAN CORPUSCULAR HGB CONC 33 g/dL (31-37); MEAN CORPUSCULAR VOLUME 89 fL (79-100); MONO # 0.3 x10^3/uL (0.0-1.1); MONO % 8 % (0-9); NEUT # 3.3 x10^3/uL (1.8-7.7); NEUT % 76 % (31-73); PLATELET COUNT 92 x10^3/uL (140-400); RED BLOOD COUNT 3.82 x10^6/uL (4.30-5.70); RED CELL DISTRIBUTION WIDTH 16.5 % (11.5-14.5); WHITE BLOOD COUNT 4.4 x10^3/uL (4.0-11.0)
[2019-07-22 06:03] LABS: CALCIUM 7.6 mg/dL (8.5-10.1); CREATININE 1.9 mg/dL (0.7-1.3); GFR 34.9; MAGNESIUM 2.5 mg/dL (1.8-2.4); POTASSIUM 3.7 mmol/L (3.5-5.1)
--- NOTE | 2019-07-22 07:19 | RAD ---
INDICATION: Respiratory failure COMPARISON: July 20, 2019 FINDINGS: Frontal view of chest obtained. Enlarged cardiomediastinal silhouette. Endotracheal tube midthoracic trachea. Left-sided vascular catheter projecting over the upper mediastinum and does not cross into the expected location of the superior vena cava. Groundglass and interstitial opacities throughout the bilateral lungs appear slightly increased from prior. Focal opacities at lung bases again seen. Enteric tube seen coursing below diaphragm. IMPRESSION: * Interstitial and alveolar opacities throughout the bilateral lungs appear increased from prior and could be from edema or infiltrate. Suspect pleural effusion as well. * Lines and tubes as above. Electronically signed by: Jaiden Palacio MD (07/22/2019 7:16 AM) [id number]
[2019-07-22 07:56] LABS: BASE EXCESS ABG -1 mmol/L (-3-3); HCO3 ABG 24 mmol/L (21-28); PCO2 ABG 38 mmHg (35-46); PO2 ABG 89 mmHg (65-108); SAT O2 ABG 96 % (92-99)
[2019-07-22 07:57] LABS: FIO2 ABG 40
--- NOTE | 2019-07-22 08:44 | PDOC ---
Infectious Disease Note Subjective Subjective Sedated Remains intubated/vent. FiO2 40% No fevers last 242 hours Tube feedings 40 ml/hr via OGT ROS ROS unobtainable Vital Sign Vital Signs Vital Signs Date Time Temp Pulse Resp B/P (MAP) Pulse Ox O2 Delivery O2 Flow Rate FiO2 07/22/19 08:11 85 16 157/69 (98) 94 Ventilator 07/22/19 07:24 97.8 97.8 07/21/19 21:33 15.0 Physical Exam PHYSICAL EXAM GENERAL: Orally intubated, sedated. Eyes open, + mitts HEENT: HANY. ETT and OG tube in place. NECK: Supple. LUNGS: Clear anteriorly HEART: S1, S2. regular ABDOMEN: Soft, bowel sounds present, no guarding : Antunez in place EXTREMITIES: Trace edema, no cyanosis. DERMATOLOGIC: Warm, dry. No generalized rash. NEUROLOGIC: Sedated LIJ without signs of complications Labs Lab Laboratory Tests Test 07/21/19 09:00 07/21/19 17:58 07/21/19 23:29 07/22/19 05:30 O2 Saturation 97 % (92-99) Arterial Blood pH 7.42 (7.35-7.45) Arterial Blood pCO2 at Patient Temp 45 mmHg (35-46) Arterial Blood pO2 at Patient Temp 100 mmHg (65-108) Arterial Blood HCO3 29 mmol/L (21-28) Arterial Blood Base Excess 4 mmol/L (-3-3) FiO2 50% vent Glucose (Fingerstick) 129 mg/dL (70-99) 102 mg/dL (70-99) White Blood Count 4.4 x10^3/uL (4.0-11.0) Red Blood Count 3.82 x10^6/uL (4.30-5.70) Hemoglobin 11.3 g/dL (13.0-17.5) Hematocrit 33.9 % (39.0-53.0) Mean Corpuscular Volume 89 fL (79-100) Mean Corpuscular Hemoglobin 30 pg (25-35) Mean Corpuscular Hemoglobin Concent 33 g/dL (31-37) Red Cell Distribution Width 16.5 % (11.5-14.5) Platelet Count 92 x10^3/uL (140-400) Neutrophils (%) (Auto) 76 % (31-73) Lymphocytes (%) (Auto) 12 % (24-48) Monocytes (%) (Auto) 8 % (0-9) Eosinophils (%) (Auto) 4 % (0-3) Basophils (%) (Auto) 0 % (0-3) Neutrophils # (Auto) 3.3 x10^3/uL (1.8-7.7) Lymphocytes # (Auto) 0.5 x10^3/uL (1.0-4.8) Monocytes # (Auto) 0.3 x10^3/uL (0.0-1.1) Eosinophils # (Auto) 0.2 x10^3/uL (0.0-0.7) Basophils # (Auto) 0.0 x10^3/uL (0.0-0.2) Sodium Level 149 mmol/L (136-145) Potassium Level 3.7 mmol/L (3.5-5.1) Chloride Level 113 mmol/L (98-107) Carbon Dioxide Level 27 mmol/L (21-32) Anion Gap 9 (6-14) Blood Urea Nitrogen 70 mg/dL (8-26) Creatinine 1.9 mg/dL (0.7-1.3) Estimated GFR (Cockcroft-Gault) 34.9 Glucose Level 110 mg/dL (70-99) Calcium Level 7.6 mg/dL (8.5-10.1) Phosphorus Level 2.9 mg/dL (2.6-4.7) Magnesium Level 2.5 mg/dL (1.8-2.4) Test 07/22/19 05:32 07/22/19 07:55 Glucose (Fingerstick) 98 mg/dL (70-99) O2 Saturation 96 % (92-99) Arterial Blood pH 7.41 (7.35-7.45) Arterial Blood pCO2 at Patient Temp 38 mmHg (35-46) Arterial Blood pO2 at Patient Temp 89 mmHg (65-108) Arterial Blood HCO3 24 mmol/L (21-28) Arterial Blood Base Excess -1 mmol/L (-3-3) FiO2 40 CXR, July 21 IMPRESSION: * Interstitial and alveolar opacities throughout the bilateral lungs appear increased from prior and could be from edema or infiltrate. Suspect pleural effusion as well. Micro Objective Assessment Sepsis. Leukocytosis - improved Lactic acidosis. Acute hypoxic respiratory failure, s/p intubation. Bilateral pulmonary infiltrates -COVID-19 negative Congestive heart failure. s/p VT arrest 07/17 -On amiodarone. s/p PCI with stent placement, 07/17. Cardiomyopathy. DONTAE on Chronic kidney disease. Gastroesophageal reflux disease. Thrombocytopenia Plan Plan of Care Continues Zosyn, 07/16 off Zyvox; s/p 1 dose of vancomycin Cultures neg Maintain aspiration precautions Supportive care Critically ill Attending Co-Sign The patient was seen and interviewed as well as examined at the bedside. The chart was reviewed. The case was discussed. Agree with the plan of care. HELDER GOMEZ APRN July 22, 2019 08:44 MARGRET DORSEY MD July 22, 2019 11:49
[2019-07-22] MEDS ORDERED: TPN PER PHARMACY MC PRN (08:45)
[2019-07-22] MEDS: ASPIRIN CHEWABLE 81 MG TABLET. PO SCH (09:02)
[2019-07-22] MEDS: AMIODARONE HCL 200 MG TABLET. PO SCH (09:02)
[2019-07-22] MEDS: APIXABAN 5 MG TABLET. FT SCH ×2 (09:02→20:54)
[2019-07-22] MEDS: LANSOPRAZOLE 30 MG TAB.RAP.DR FT SCH (09:02)
[2019-07-22] MEDS: ALPRAZolam 0.5 MG TABLET FT SCH ×2 (09:02→20:54)
[2019-07-22] MEDS: TICAGRELOR 90 MG TABLET. PO SCH ×2 (09:02→20:54)
[2019-07-22] MEDS: FUROSEMIDE 40 MG/4 ML VIAL. IVP SCH (09:03)
--- NOTE | 2019-07-22 11:14 | PDOC ---
PULMONARY PROGRESS NOTES Subjective Remains on AC control 40% FiO2 5 of PEEP, small ett secretion, sleepy, on morphine gtt Vitals Vital Signs Date Time Temp Pulse Resp B/P (MAP) Pulse Ox O2 Delivery O2 Flow Rate FiO2 07/22/19 11:04 71 16 137/62 (87) 96 Ventilator 07/22/19 07:24 97.8 97.8 07/21/19 21:33 15.0 Comments ros unable to obtain sedated on vent General: Lethargic HEENT: Other (nc at perrl nose clear orally intubated) Lungs: Crackles Cardiovascular: S1, S2 Abdomen: Soft, Non-tender, Other (no mass) Extremities: Other (edema) Skin: Warm Labs Laboratory Tests Test 07/20/19 13:36 07/20/19 18:00 07/20/19 18:15 07/20/19 23:56 Glucose (Fingerstick) 132 mg/dL (70-99) 108 mg/dL (70-99) 129 mg/dL (70-99) Sodium Level 145 mmol/L (136-145) Potassium Level 4.4 mmol/L (3.5-5.1) Chloride Level 110 mmol/L (98-107) Carbon Dioxide Level 31 mmol/L (21-32) Anion Gap 4 (6-14) Blood Urea Nitrogen 60 mg/dL (8-26) Creatinine 2.4 mg/dL (0.7-1.3) Estimated GFR (Cockcroft-Gault) 26.7 Glucose Level 108 mg/dL (70-99) Calcium Level 7.4 mg/dL (8.5-10.1) Magnesium Level 2.2 mg/dL (1.8-2.4) Test 07/21/19 05:00 07/21/19 05:45 07/21/19 09:00 07/21/19 17:58 White Blood Count 6.2 x10^3/uL (4.0-11.0) Red Blood Count 4.36 x10^6/uL (4.30-5.70) Hemoglobin 12.7 g/dL (13.0-17.5) Hematocrit 38.9 % (39.0-53.0) Mean Corpuscular Volume 89 fL (79-100) Mean Corpuscular Hemoglobin 29 pg (25-35) Mean Corpuscular Hemoglobin Concent 33 g/dL (31-37) Red Cell Distribution Width 16.7 % (11.5-14.5) Platelet Count 118 x10^3/uL (140-400) Neutrophils (%) (Auto) 77 % (31-73) Lymphocytes (%) (Auto) 11 % (24-48) Monocytes (%) (Auto) 9 % (0-9) Eosinophils (%) (Auto) 3 % (0-3) Basophils (%) (Auto) 1 % (0-3) Neutrophils # (Auto) 4.8 x10^3/uL (1.8-7.7) Lymphocytes # (Auto) 0.7 x10^3/uL (1.0-4.8) Monocytes # (Auto) 0.5 x10^3/uL (0.0-1.1) Eosinophils # (Auto) 0.2 x10^3/uL (0.0-0.7) Basophils # (Auto) 0.0 x10^3/uL (0.0-0.2) Sodium Level 143 mmol/L (136-145) Potassium Level 4.1 mmol/L (3.5-5.1) Chloride Level 110 mmol/L (98-107) Carbon Dioxide Level 26 mmol/L (21-32) Anion Gap 7 (6-14) Blood Urea Nitrogen 62 mg/dL (8-26) Creatinine 2.1 mg/dL (0.7-1.3) Estimated GFR (Cockcroft-Gault) 31.1 Glucose Level 150 mg/dL (70-99) Calcium Level 7.5 mg/dL (8.5-10.1) Phosphorus Level 3.4 mg/dL (2.6-4.7) Magnesium Level 2.4 mg/dL (1.8-2.4) Total Bilirubin 1.0 mg/dL (0.2-1.0) Direct Bilirubin 0.3 mg/dL (0.0-0.2) Aspartate Amino Transf (AST/SGOT) 47 U/L (15-37) Alanine Aminotransferase (ALT/SGPT) 21 U/L (16-63) Alkaline Phosphatase 49 U/L (46-116) Total Protein 5.0 g/dL (6.4-8.2) Albumin 1.8 g/dL (3.4-5.0) Glucose (Fingerstick) 137 mg/dL (70-99) 129 mg/dL (70-99) O2 Saturation 97 % (92-99) Arterial Blood pH 7.42 (7.35-7.45) Arterial Blood pCO2 at Patient Temp 45 mmHg (35-46) Arterial Blood pO2 at Patient Temp 100 mmHg (65-108) Arterial Blood HCO3 29 mmol/L (21-28) Arterial Blood Base Excess 4 mmol/L (-3-3) FiO2 50% vent Test 07/21/19 23:29 07/22/19 05:30 07/22/19 05:32 07/22/19 07:55 Glucose (Fingerstick) 102 mg/dL (70-99) 98 mg/dL (70-99) White Blood Count 4.4 x10^3/uL (4.0-11.0) Red Blood Count 3.82 x10^6/uL (4.30-5.70) Hemoglobin 11.3 g/dL (13.0-17.5) Hematocrit 33.9 % (39.0-53.0) Mean Corpuscular Volume 89 fL (79-100) Mean Corpuscular Hemoglobin 30 pg (25-35) Mean Corpuscular Hemoglobin Concent 33 g/dL (31-37) Red Cell Distribution Width 16.5 % (11.5-14.5) Platelet Count 92 x10^3/uL (140-400) Neutrophils (%) (Auto) 76 % (31-73) Lymphocytes (%) (Auto) 12 % (24-48) Monocytes (%) (Auto) 8 % (0-9) Eosinophils (%) (Auto) 4 % (0-3) Basophils (%) (Auto) 0 % (0-3) Neutrophils # (Auto) 3.3 x10^3/uL (1.8-7.7) Lymphocytes # (Auto) 0.5 x10^3/uL (1.0-4.8) Monocytes # (Auto) 0.3 x10^3/uL (0.0-1.1) Eosinophils # (Auto) 0.2 x10^3/uL (0.0-0.7) Basophils # (Auto) 0.0 x10^3/uL (0.0-0.2) Sodium Level 149 mmol/L (136-145) Potassium Level 3.7 mmol/L (3.5-5.1) Chloride Level 113 mmol/L (98-107) Carbon Dioxide Level 27 mmol/L (21-32) Anion Gap 9 (6-14) Blood Urea Nitrogen 70 mg/dL (8-26) Creatinine 1.9 mg/dL (0.7-1.3) Estimated GFR (Cockcroft-Gault) 34.9 Glucose Level 110 mg/dL (70-99) Calcium Level 7.6 mg/dL (8.5-10.1) Phosphorus Level 2.9 mg/dL (2.6-4.7) Magnesium Level 2.5 mg/dL (1.8-2.4) O2 Saturation 96 % (92-99) Arterial Blood pH 7.41 (7.35-7.45) Arterial Blood pCO2 at Patient Temp 38 mmHg (35-46) Arterial Blood pO2 at Patient Temp 89 mmHg (65-108) Arterial Blood HCO3 24 mmol/L (21-28) Arterial Blood Base Excess -1 mmol/L (-3-3) FiO2 40 Laboratory Tests Test 07/21/19 17:58 07/21/19 23:29 07/22/19 05:30 07/22/19 05:32 Glucose (Fingerstick) 129 mg/dL (70-99) 102 mg/dL (70-99) 98 mg/dL (70-99) White Blood Count 4.4 x10^3/uL (4.0-11.0) Red Blood Count 3.82 x10^6/uL (4.30-5.70) Hemoglobin 11.3 g/dL (13.0-17.5) Hematocrit 33.9 % (39.0-53.0) Mean Corpuscular Volume 89 fL (79-100) Mean Corpuscular Hemoglobin 30 pg (25-35) Mean Corpuscular Hemoglobin Concent 33 g/dL (31-37) Red Cell Distribution Width 16.5 % (11.5-14.5) Platelet Count 92 x10^3/uL (140-400) Neutrophils (%) (Auto) 76 % (31-73) Lymphocytes (%) (Auto) 12 % (24-48) Monocytes (%) (Auto) 8 % (0-9) Eosinophils (%) (Auto) 4 % (0-3) Basophils (%) (Auto) 0 % (0-3) Neutrophils # (Auto) 3.3 x10^3/uL (1.8-7.7) Lymphocytes # (Auto) 0.5 x10^3/uL (1.0-4.8) Monocytes # (Auto) 0.3 x10^3/uL (0.0-1.1) Eosinophils # (Auto) 0.2 x10^3/uL (0.0-0.7) Basophils # (Auto) 0.0 x10^3/uL (0.0-0.2) Sodium Level 149 mmol/L (136-145) Potassium Level 3.7 mmol/L (3.5-5.1) Chloride Level 113 mmol/L (98-107) Carbon Dioxide Level 27 mmol/L (21-32) Anion Gap 9 (6-14) Blood Urea Nitrogen 70 mg/dL (8-26) Creatinine 1.9 mg/dL (0.7-1.3) Estimated GFR (Cockcroft-Gault) 34.9 Glucose Level 110 mg/dL (70-99) Calcium Level 7.6 mg/dL (8.5-10.1) Phosphorus Level 2.9 mg/dL (2.6-4.7) Magnesium Level 2.5 mg/dL (1.8-2.4) Test 07/22/19 07:55 O2 Saturation 96 % (92-99) Arterial Blood pH 7.41 (7.35-7.45) Arterial Blood pCO2 at Patient Temp 38 mmHg (35-46) Arterial Blood pO2 at Patient Temp 89 mmHg (65-108) Arterial Blood HCO3 24 mmol/L (21-28) Arterial Blood Base Excess -1 mmol/L (-3-3) FiO2 40 Medications Active Scripts Medications Dose Route/Sig Max Daily Dose Days Date Category Toprol XL (Metoprolol Succinate) 50 Mg Tab.er.24h 50 Mg PO DAILY 06/20/19 Rx Metolazone 2.5 Mg Tablet 2.5 Mg PO QODAY 06/20/19 Rx Furosemide 40 Mg Tablet 40 Mg PO BID92 06/20/19 Rx Klor-Con M20 (Potassium Chloride) 20 Meq Tab.er.prt 20 Meq PO BIDWMEALS 06/20/19 Rx Amiodarone Hcl 200 Mg Tablet 200 Mg PO DAILY 06/20/19 Rx Eliquis (Apixaban) 5 Mg Tablet 5 Mg PO BID 06/20/19 Rx Acetaminophen 325 Mg Tablet 325 Mg PO Q6HRS 06/13/19 Reported Dicyclomine Hcl 10 Mg Capsule 1 Cap PO PRN TID PRN 05/17/19 Reported Nexium Capsule (Esomeprazole Magnesium) 40 Mg Capsule.dr 40 Mg PO DAILYAC 05/17/19 Reported Oxycodone Hcl Immed.release (Oxycodone Hcl) 15 Mg Tablet 15 Mg PO PRN Q12HR PRN 05/17/19 Reported Alprazolam 1 Mg Tablet 1 Tab PO BID 02/05/17 Reported Comments cxr reviewed b lat infilt worse ett ok Impression . IMPRESSION: 1. Acute hypoxemic hypercapnic respiratory failure. 2. Bilateral pulmonary infiltrates, suspect combination of congestive heart failure and pneumonia. 3. Sepsis. 4. SARS-CoV 2, negative 5. Cardiomyopathy, ejection fraction of 15%. 6. Chronic atrial fibrillation. 7. DONTAE/Chronic kidney disease. 8. Acute on chronic systolic heart failure. 9. Hypotension, requiring pressors, suspect secondary to sepsis. 10. Mild elevation in troponin. 11. Paroxysmal atrial fibrillation with recent cardioversion. 12. Status post CODE BLUE secondary to V. tach/coronary artery disease see below Conclusion 1. Normal biventricular filling pressures. 2. Mild pulmonary HTN 3. Normal cardiac output at 5.1 L/min 4. One vessel coronary disease. 5. Successful PCI of the RCA as described above 6. Patient had one episode of SVT with hypotension requiring synchronized cardioversion to SR. Recommendations ASA 81mg daily Ticagrelor 90mg bid Will restart Eliquis at low dose if stable overnight. His hypotension is likely vasoplegic/septic shock, rather than cardiac in origin as evidenced by his normal cardiac output. Cardiac arrest this morning likely sequalae of electrolyte disturbances. Plan . Continue assist control, setting reviewed, decrease sedation, sbt when more alert cxr worse suspect pulm edema, on iv lasix, will monitor, nephro on case may need hd Follow cardiology Case discussed with RN, rt Continue empiric antibiotics Follow cardiology input GI DVT prophylaxis Total cumulative critical care time of 30 minutes. The patient was seen during a COVID-19 pandemic. ANCELMO BERGER MD July 22, 2019 11:14
[2019-07-22] MEDS ORDERED: POTASSIUM CHLORIDE 20 MEQ TABLET.ER. PO ONE (11:45)
--- NOTE | 2019-07-22 11:47 | PDOC ---
PROGRESS NOTES Subjective Subjective alert on ventilator. off pressors and lidocaine. lab and cxr report reviewed. Objective Objective Vital Signs Date Time Temp Pulse Resp B/P (MAP) Pulse Ox O2 Delivery O2 Flow Rate FiO2 07/22/19 11:28 97 Ventilator 07/22/19 11:04 71 16 137/62 (87) 07/22/19 07:24 97.8 97.8 07/21/19 21:33 15.0 Intake and Output 07/22/19 06:59 Intake Total 1856 ml Output Total 1285 ml Balance 571 ml Intake IV Total 1656 ml Tube Feeding 200 ml Output Urine Total 1285 ml Physical Exam Abdomen: Soft Heart: Regular rate, Normal S1, Normal S2 Extremities: Other (trace edema legs) General: Alert HEENT: Atraumatic Lungs: Clear to auscultation Neuro: Other (on ventilator) Psych/Mental Status: Other (on ventilator) Skin: No rashes Assessment Assessment Problems1. Acute pulmonary edema. compensated 2. Acute on chronic systolic congestive heart failure.compensated 3. Severe cardiomyopathy with left ventricular ejection fraction 40-45% 07/19 per echo 4. Acute hypoxic and hypercarbic respiratory failure, on the ventilator. 5. Paroxysmal atrial fibrillation, currently a fib RVR 6. sepsis with shock, maintained on pressor 7. acute kidney injury on chronic kidney disease stage 3. 8. Gastroesophageal reflux disease. 9. Leukocytosis resolved bilateral lung infiltrates. suspect pneumonia hypernatremia mild hypokalemia resolved hypomagnesemia resolved VT cardiac arrest 07/17 and again 07/19 PCI RCA 07/17 Medical Problems: (1) Acute exacerbation of CHF (congestive heart failure) Status: Acute (2) Acute on chronic renal insufficiency Status: Acute (3) Elevated troponin I level Status: Acute (4) Septic shock Status: Acute (5) Suspected COVID-19 virus infection Status: Acute Plan Plan of Care replete kcl continue ventilator support continue iv zosyn continue amiodarone and eliquis continue tube feeding lab tomorrow Comment Review of Relevant I have reviewed the following items juan (where applicable) has been applied. Labs Laboratory Tests Test 07/20/19 13:36 07/20/19 18:00 07/20/19 18:15 07/20/19 23:56 Glucose (Fingerstick) 132 mg/dL (70-99) 108 mg/dL (70-99) 129 mg/dL (70-99) Sodium Level 145 mmol/L (136-145) Potassium Level 4.4 mmol/L (3.5-5.1) Chloride Level 110 mmol/L (98-107) Carbon Dioxide Level 31 mmol/L (21-32) Anion Gap 4 (6-14) Blood Urea Nitrogen 60 mg/dL (8-26) Creatinine 2.4 mg/dL (0.7-1.3) Estimated GFR (Cockcroft-Gault) 26.7 Glucose Level 108 mg/dL (70-99) Calcium Level 7.4 mg/dL (8.5-10.1) Magnesium Level 2.2 mg/dL (1.8-2.4) Test 07/21/19 05:00 07/21/19 05:45 07/21/19 09:00 07/21/19 17:58 White Blood Count 6.2 x10^3/uL (4.0-11.0) Red Blood Count 4.36 x10^6/uL (4.30-5.70) Hemoglobin 12.7 g/dL (13.0-17.5) Hematocrit 38.9 % (39.0-53.0) Mean Corpuscular Volume 89 fL (79-100) Mean Corpuscular Hemoglobin 29 pg (25-35) Mean Corpuscular Hemoglobin Concent 33 g/dL (31-37) Red Cell Distribution Width 16.7 % (11.5-14.5) Platelet Count 118 x10^3/uL (140-400) Neutrophils (%) (Auto) 77 % (31-73) Lymphocytes (%) (Auto) 11 % (24-48) Monocytes (%) (Auto) 9 % (0-9) Eosinophils (%) (Auto) 3 % (0-3) Basophils (%) (Auto) 1 % (0-3) Neutrophils # (Auto) 4.8 x10^3/uL (1.8-7.7) Lymphocytes # (Auto) 0.7 x10^3/uL (1.0-4.8) Monocytes # (Auto) 0.5 x10^3/uL (0.0-1.1) Eosinophils # (Auto) 0.2 x10^3/uL (0.0-0.7) Basophils # (Auto) 0.0 x10^3/uL (0.0-0.2) Sodium Level 143 mmol/L (136-145) Potassium Level 4.1 mmol/L (3.5-5.1) Chloride Level 110 mmol/L (98-107) Carbon Dioxide Level 26 mmol/L (21-32) Anion Gap 7 (6-14) Blood Urea Nitrogen 62 mg/dL (8-26) Creatinine 2.1 mg/dL (0.7-1.3) Estimated GFR (Cockcroft-Gault) 31.1 Glucose Level 150 mg/dL (70-99) Calcium Level 7.5 mg/dL (8.5-10.1) Phosphorus Level 3.4 mg/dL (2.6-4.7) Magnesium Level 2.4 mg/dL (1.8-2.4) Total Bilirubin 1.0 mg/dL (0.2-1.0) Direct Bilirubin 0.3 mg/dL (0.0-0.2) Aspartate Amino Transf (AST/SGOT) 47 U/L (15-37) Alanine Aminotransferase (ALT/SGPT) 21 U/L (16-63) Alkaline Phosphatase 49 U/L (46-116) Total Protein 5.0 g/dL (6.4-8.2) Albumin 1.8 g/dL (3.4-5.0) Glucose (Fingerstick) 137 mg/dL (70-99) 129 mg/dL (70-99) O2 Saturation 97 % (92-99) Arterial Blood pH 7.42 (7.35-7.45) Arterial Blood pCO2 at Patient Temp 45 mmHg (35-46) Arterial Blood pO2 at Patient Temp 100 mmHg (65-108) Arterial Blood HCO3 29 mmol/L (21-28) Arterial Blood Base Excess 4 mmol/L (-3-3) FiO2 50% vent Test 07/21/19 23:29 07/22/19 05:30 07/22/19 05:32 07/22/19 07:55 Glucose (Fingerstick) 102 mg/dL (70-99) 98 mg/dL (70-99) White Blood Count 4.4 x10^3/uL (4.0-11.0) Red Blood Count 3.82 x10^6/uL (4.30-5.70) Hemoglobin 11.3 g/dL (13.0-17.5) Hematocrit 33.9 % (39.0-53.0) Mean Corpuscular Volume 89 fL (79-100) Mean Corpuscular Hemoglobin 30 pg (25-35) Mean Corpuscular Hemoglobin Concent 33 g/dL (31-37) Red Cell Distribution Width 16.5 % (11.5-14.5) Platelet Count 92 x10^3/uL (140-400) Neutrophils (%) (Auto) 76 % (31-73) Lymphocytes (%) (Auto) 12 % (24-48) Monocytes (%) (Auto) 8 % (0-9) Eosinophils (%) (Auto) 4 % (0-3) Basophils (%) (Auto) 0 % (0-3) Neutrophils # (Auto) 3.3 x10^3/uL (1.8-7.7) Lymphocytes # (Auto) 0.5 x10^3/uL (1.0-4.8) Monocytes # (Auto) 0.3 x10^3/uL (0.0-1.1) Eosinophils # (Auto) 0.2 x10^3/uL (0.0-0.7) Basophils # (Auto) 0.0 x10^3/uL (0.0-0.2) Sodium Level 149 mmol/L (136-145) Potassium Level 3.7 mmol/L (3.5-5.1) Chloride Level 113 mmol/L (98-107) Carbon Dioxide Level 27 mmol/L (21-32) Anion Gap 9 (6-14) Blood Urea Nitrogen 70 mg/dL (8-26) Creatinine 1.9 mg/dL (0.7-1.3) Estimated GFR (Cockcroft-Gault) 34.9 Glucose Level 110 mg/dL (70-99) Calcium Level 7.6 mg/dL (8.5-10.1) Phosphorus Level 2.9 mg/dL (2.6-4.7) Magnesium Level 2.5 mg/dL (1.8-2.4) O2 Saturation 96 % (92-99) Arterial Blood pH 7.41 (7.35-7.45) Arterial Blood pCO2 at Patient Temp 38 mmHg (35-46) Arterial Blood pO2 at Patient Temp 89 mmHg (65-108) Arterial Blood HCO3 24 mmol/L (21-28) Arterial Blood Base Excess -1 mmol/L (-3-3) FiO2 40 Laboratory Tests Test 07/21/19 17:58 07/21/19 23:29 07/22/19 05:30 07/22/19 05:32 Glucose (Fingerstick) 129 mg/dL (70-99) 102 mg/dL (70-99) 98 mg/dL (70-99) White Blood Count 4.4 x10^3/uL (4.0-11.0) Red Blood Count 3.82 x10^6/uL (4.30-5.70) Hemoglobin 11.3 g/dL (13.0-17.5) Hematocrit 33.9 % (39.0-53.0) Mean Corpuscular Volume 89 fL (79-100) Mean Corpuscular Hemoglobin 30 pg (25-35) Mean Corpuscular Hemoglobin Concent 33 g/dL (31-37) Red Cell Distribution Width 16.5 % (11.5-14.5) Platelet Count 92 x10^3/uL (140-400) Neutrophils (%) (Auto) 76 % (31-73) Lymphocytes (%) (Auto) 12 % (24-48) Monocytes (%) (Auto) 8 % (0-9) Eosinophils (%) (Auto) 4 % (0-3) Basophils (%) (Auto) 0 % (0-3) Neutrophils # (Auto) 3.3 x10^3/uL (1.8-7.7) Lymphocytes # (Auto) 0.5 x10^3/uL (1.0-4.8) Monocytes # (Auto) 0.3 x10^3/uL (0.0-1.1) Eosinophils # (Auto) 0.2 x10^3/uL (0.0-0.7) Basophils # (Auto) 0.0 x10^3/uL (0.0-0.2) Sodium Level 149 mmol/L (136-145) Potassium Level 3.7 mmol/L (3.5-5.1) Chloride Level 113 mmol/L (98-107) Carbon Dioxide Level 27 mmol/L (21-32) Anion Gap 9 (6-14) Blood Urea Nitrogen 70 mg/dL (8-26) Creatinine 1.9 mg/dL (0.7-1.3) Estimated GFR (Cockcroft-Gault) 34.9 Glucose Level 110 mg/dL (70-99) Calcium Level 7.6 mg/dL (8.5-10.1) Phosphorus Level 2.9 mg/dL (2.6-4.7) Magnesium Level 2.5 mg/dL (1.8-2.4) Test 07/22/19 07:55 O2 Saturation 96 % (92-99) Arterial Blood pH 7.41 (7.35-7.45) Arterial Blood pCO2 at Patient Temp 38 mmHg (35-46) Arterial Blood pO2 at Patient Temp 89 mmHg (65-108) Arterial Blood HCO3 24 mmol/L (21-28) Arterial Blood Base Excess -1 mmol/L (-3-3) FiO2 40 Microbiology 07/17/19 Urine Culture - Final, Complete 07/17/19 Urine Culture Result 1 (BOYD) - Final, Complete 07/17/19 Blood Culture - Final, Complete NO GROWTH AFTER 5 DAYS 07/17/19 Nose/Throat Culture - Final, Complete 07/17/19 - Final, Complete Medications Current Medications Nitroglycerin (Nitrostat) 0.4 mg STK-MED ONCE SL ; Start 07/17/19 at 04:28; Stop 07/17/19 at 04:28; Status DC Nitroglycerin (Nitrostat) 0.4 mg 1X ONCE SL Last administered on 07/17/19at 04:29; Start 07/17/19 at 04:30; Stop 07/17/19 at 04:43; Status DC Nitroglycerin/ Dextrose 250 ml @ 0 mls/hr 1X ONCE IV Last administered on 07/17/19at 04:47; Start 07/17/19 at 04:45; Stop 07/17/19 at 04:46; Status DC Rocuronium [place] (Zemuron) 50 mg 1X ONCE IV Last administered on 07/17/19at 04:44; Start 07/17/19 at 04:45; Stop 07/17/19 at 04:46; Status DC Etomidate (Amidate) 20 mg 1X ONCE IV Last administered on 07/17/19at 04:43; Start 07/17/19 at 04:45; Stop 07/17/19 at 04:46; Status DC Propofol 100 ml @ 0 mls/hr CONT PRN IV SEE PROTOCOL Last administered on 07/17/19at 05:45; Start 07/17/19 at 05:15 Aspirin (Aspirin Rectal Supp) 300 mg 1X ONCE FL Last administered on 07/17/19at 06:01; Start 07/17/19 at 05:45; Stop 07/17/19 at 05:46; Status DC Bumetanide (Bumex) 1 mg 1X ONCE IV Last administered on 07/17/19at 06:00; Start 07/17/19 at 06:00; Stop 07/17/19 at 06:01; Status DC Piperacillin Sod/ Tazobactam Sod 4.5 gm/Sodium Chloride 100 ml @ 200 mls/hr 1X ONCE IV Last administered on 07/17/19at 11:14; Start 07/17/19 at 06:00; Stop 07/17/19 at 06:29; Status DC Vancomycin HCl (Vanco Per Pharmacy) 1 each PRN DAILY PRN MC SEE COMMENTS Last administered on 07/17/19at 06:43; Start 07/17/19 at 06:00; Stop 07/17/19 at 1 0:41; Status DC Vancomycin HCl 2 gm/Sodium Chloride 500 ml @ 250 mls/hr 1X ONCE IV Last administered on 07/17/19at 06:15; Start 07/17/19 at 06:00; Stop 07/17/19 at 07:59; Status DC Ondansetron HCl (Zofran) 4 mg PRN Q8HRS PRN IV NAUSEA/VOMITING; Start 07/17/19 at 06:00; Stop 07/18/19 at 05:59; Status DC Norepinephrine Bitartrate 8 mg/ Dextrose 258 ml @ 0 mls/hr CONT PRN IV SEE I/O RECORD Last administered on 07/17/19at 21:52; Start 07/17/19 at 06:30; Stop 07/18/19 at 13:40; Status DC Vancomycin HCl 1.75 gm/Sodium Chloride 500 ml @ 250 mls/hr Q24H IV ; Start 07/18/19 at 06:30; Stop 07/17/19 at 10:38; Status DC Vancomycin HCl (Vancomycin Trough Level) 1 each 1X ONCE MC ; Start 07/19/19 at 06:00; Stop 07/19/19 at 06:01; Status Cancel Morphine Sulfate (Morphine Sulfate) 6 mg 1X ONCE IV Last administered on 07/17/19at 07:08; Start 07/17/19 at 07:15; Stop 07/17/19 at 07:16; Status DC Midazolam HCl 100 ml @ 0 mls/hr CONT PRN IV SEE PROTOCOL Last administered on 07/21/19at 21:00; Start 07/17/19 at 07:15 Morphine Sulfate (Morphine Sulfate) 4 mg PRN Q1HR PRN IV SEE COMMENTS.; Start 07/17/19 at 08:00; Stop 07/17/19 at 10:38; Status DC Heparin Sodium (Porcine) (Heparin Sodium) 5,000 unit Q12HR SQ ; Start 07/17/19 at 21:00; Stop 07/17/19 at 10:38; Status DC Amiodarone HCl (Cordarone) 200 mg DAILY PO Last administered on 07/21/19at 09:04; Start 07/18/19 at 09:00; Stop 07/21/19 at 15:07; Status DC Metolazone (Zaroxolyn) 2.5 mg QODAY PO ; Start 07/19/19 at 09:00; Stop 07/18/19 at 10:36; Status DC Potassium Chloride (Klor-Con) 20 meq BIDWMEALS PO Last administered on 07/17/19at 16:34; Start 07/17/19 at 17:00; Stop 07/18/19 at 10:36; Status DC Furosemide (Lasix) 40 mg [id number] IVP Last administered on 07/18/19at 08:03; Start 07/17/19 at 14:00; Stop 07/20/19 at 11:02; Status DC Morphine Sulfate (Morphine Sulfate) 2 mg PRN Q4HRS PRN IV SEE COMMENTS.; Start 07/17/19 at 10:30; Status Cancel Apixaban (Eliquis) 5 mg BID FT Last administered on 07/22/19at 09:02; Start 07/17/19 at 21:00 Insulin Human Lispro (HumaLOG) 0-6 UNITS Q6HRS SQ ; Start 07/17/19 at 12:00 Lansoprazole (Prevacid) 30 mg DAILY FT Last administered on 07/22/19at 09:02; Start 07/18/19 at 09:00 Acetaminophen (Tylenol) 650 mg PRN Q6HRS PRN FT MILD PAIN / TEMP > 100.3'F; Start 07/17/19 at 10:30 Alprazolam (Xanax) 1 mg BID FT Last administered on 07/22/19at 09:02; Start 07/17/19 at 21:00 Magnesium Hydroxide (Milk Of Magnesia) 2,400 mg PRN DAILY PRN FT CONSTIPATION; Start 07/17/19 at 10:30 Dexmedetomidine HCl 400 mcg/ Sodium Chloride 100 ml @ 0 mls/hr CONT PRN IV PER PROTOCOL Last administered on 07/20/19at 13:31; Start 07/17/19 at 11:00 Sodium Chloride 500 ml @ 500 mls/hr 1X PRN PRN IV SEE COMMENTS; Start 07/17/19 at 11:00 Atropine Sulfate (ATROPINE 0.5mg SYRINGE) 0.5 mg PRN Q5MIN PRN IV SEE COMMENTS; Start 07/17/19 at 11:00 Morphine Sulfate (Morphine Sulfate) 2 mg PRN Q1HR PRN IV SEE COMMENTS. Last administered on 07/17/19at 13:37; Start 07/17/19 at 11:15 Morphine Sulfate (Morphine Sulfate) 4 mg PRN Q1HR PRN IV SEE COMMENTS. Last administered on 07/18/19at 13:53; Start 07/17/19 at 11:15 Piperacillin Sod/ Tazobactam Sod 2.25 gm/Sodium Chloride 50 ml @ 100 mls/hr Q6HRS IV Last administered on 07/22/19at 05:46; Start 07/17/19 at 18:00; Stop 07/22/19 at 08:47; Status DC Magnesium Sulfate 50 ml @ 25 mls/hr 1X ONCE IV Last administered on 07/18/19at 08:04; Start 07/18/19 at 07:15; Stop 07/18/19 at 09:14; Status DC Milrinone Lactate/ Dextrose 100 ml @ 0 mls/hr CONT PRN IV SEE I/O RECORD Last administered on 07/20/19at 02:37; Start 07/18/19 at 07:15 Linezolid/Dextrose 300 ml @ 300 mls/hr Q12HR IV Last administered on 07/19/19at 21:29; Start 07/18/19 at 09:00; Stop 07/20/19 at 08:25; Status DC Info (Anti-Coagulation Monitoring By Pharmacy) 1 each PRN DAILY PRN MC SEE COMMENTS Last administered on 07/20/19at 14:42; Start 07/18/19 at 08:00 Vecuronium [place] (Norcuron Bolus) 10 mg STK-MED ONCE IV ; Start 07/18/19 at 09:12; Stop 07/18/19 at 09:12; Status DC Potassium Chloride/Water 100 ml @ 100 mls/hr 1X ONCE IV Last administered on 07/18/19at 10:04; Start 07/18/19 at 09:45; Stop 07/18/19 at 10:44; Status DC Magnesium Sulfate 50 ml @ 25 mls/hr 1X ONCE IV Last administered on 07/18/19at 10:03; Start 07/18/19 at 09:45; Stop 07/18/19 at 11:44; Status DC Norepinephrine Bitartrate 32 mg/ Dextrose 282 ml @ 0 mls/hr CONT PRN IV SEE I/O RECORD Last administered on 07/19/19at 10:39; Start 07/18/19 at 11:15 Morphine Sulfate 30 ml @ 0 mls/hr CONT PRN PRN IV PER PROTOCOL Last administered on 07/21/19at 21:03; Start 07/18/19 at 12:45 Lidocaine HCl (Xylocaine-Mpf 1% 2ml Vial) 2 ml STK-MED ONCE .ROUTE ; Start 07/18/19 at 13:05; Stop 07/18/19 at 13:05; Status DC Iodixanol (Visipaque 320) 100 ml STK-MED ONCE .ROUTE ; Start 07/18/19 at 13:05; Stop 07/18/19 at 13:06; Status DC Heparin Sodium/ Sodium Chloride 1,500 ml @ As Directed STK-MED ONCE .ROUTE ; Start 07/18/19 at 13:05; Stop 07/18/19 at 13:06; Status DC Vecuronium [place] (Norcuron Bolus) 10 mg STK-MED ONCE IV ; Start 07/18/19 at 13:49; Stop 07/18/19 at 13:49; Status DC Vecuronium [place] (Norcuron Bolus) 6 mg PRN Q4HRS PRN IV ANXIETY / AGITATION; Start 07/18/19 at 14:00 Epinephrine HCl 5 mg/Sodium Chloride 255 ml @ 32.926 mls/ hr CONT PRN IV SEE I/O RECORD; Start 07/18/19 at 14:00 Lidocaine HCl (Lidocaine 1% 20ml Vial) 20 ml STK-MED ONCE .ROUTE ; Start 07/18/19 at 14:11; Stop 07/18/19 at 14:11; Status DC Heparin Sodium (Porcine) (Heparin Sodium) 10,000 unit STK-MED ONCE .ROUTE ; Start 07/18/19 at 14:27; Stop 07/18/19 at 14:28; Status DC Heparin Sodium/ Sodium Chloride (HEPARIN for ARTERIAL LINE FLUSH) 1,000 unit 1X ONCE IART Last administered on 07/18/19at 14:45; Start 07/18/19 at 14:45; Stop 07/18/19 at 14:52; Status DC Heparin Sodium/ Sodium Chloride (HEPARIN for ARTERIAL LINE FLUSH) 1,000 unit 1X ONCE IART Last administered on 07/18/19at 14:45; Start 07/18/19 at 14:45; Stop 07/18/19 at 14:52; Status DC Iodixanol (Visipaque 320) 100 ml 1X ONCE IART Last administered on 07/18/19at 14:45; Start 07/18/19 at 14:45; Stop 07/18/19 at 14:52; Status DC Heparin Sodium (Porcine) (Heparin Sodium) 7,000 unit 1X ONCE IV Last administered on 07/18/19at 14:45; Start 07/18/19 at 14:45; Stop 07/18/19 at 14:52; Status DC Lidocaine HCl (Lidocaine 1% 20ml Vial) 20 ml 1X ONCE INJ Last administered on 07/18/19at 14:45; Start 07/18/19 at 14:45; Stop 07/18/19 at 14:52; Status DC Heparin Sodium/ Sodium Chloride 500 ml @ As Directed STK-MED ONCE .ROUTE ; Start 07/18/19 at 15:11; Stop 07/18/19 at 15:11; Status DC Ticagrelor (Brilinta) 180 mg 1X ONCE PO Last administered on 07/18/19at 16:08; Start 07/18/19 at 16:00; Stop 07/18/19 at 16:01; Status DC Digoxin (Lanoxin) 250 mcg 1X ONCE IV ; Start 07/19/19 at 06:15; Stop 07/19/19 at 06:16; Status Cancel Digoxin (Lanoxin) 250 mcg 1X ONCE IV Last administered on 07/19/19at 05:15; Start 07/19/19 at 05:15; Stop 07/19/19 at 06:11; Status DC Digoxin (Lanoxin) 250 mcg 1X ONCE IV Last administered on 07/19/19at 08:48; Start 07/19/19 at 09:00; Stop 07/19/19 at 09:01; Status DC Digoxin (Lanoxin) 250 mcg 1X ONCE IV Last administered on 07/19/19at 04:15; Start 07/19/19 at 04:10; Stop 07/19/19 at 06:15; Status DC Vecuronium [place] (Norcuron Bolus) 20 mg STK-MED ONCE IV ; Start 07/18/19 at 12:00; Stop 07/19/19 at 08:48; Status DC Potassium Chloride/Water 100 ml @ 100 mls/hr 1X ONCE IV Last administered on 07/19/19at 12:13; Start 07/19/19 at 11:45; Stop 07/19/19 at 12:44; Status DC Amiodarone HCl 150 mg/Dextrose 103 ml @ 618 mls/hr 1X ONCE IV Last administered on 07/19/19at 12:15; Start 07/19/19 at 12:00; Stop 07/19/19 at 12:09; Status DC Metoprolol Tartrate (Lopressor) 12.5 mg Q6HRS PO Last administered on 07/21/19at 23:31; Start 07/19/19 at 12:00 Amiodarone HCl (Cordarone) 300 mg STK-MED ONCE .ROUTE ; Start 07/18/19 at 16:08; Stop 07/19/19 at 16:08; Status DC Epinephrine HCl (EPINEPHrine SYRINGE) 4 mg STK-MED ONCE .ROUTE ; Start 07/18/19 at 16:08; Stop 07/19/19 at 16:08; Status DC Aspirin (Aspirin Chewable) 81 mg 1X ONCE PO Last administered on 07/19/19at 17:28; Start 07/19/19 at 17:00; Stop 07/19/19 at 17:06; Status DC Aspirin (Aspirin Chewable) 81 mg DAILYWBKFT PO Last administered on 07/22/19at 09:02; Start 07/20/19 at 08:00 Ticagrelor (Brilinta) 90 mg BID PO Last administered on 07/22/19at 09:02; Start 07/20/19 at 09:00 Ticagrelor (Brilinta) 90 mg 1X ONCE PO Last administered on 07/19/19at 17:28; Start 07/19/19 at 17:00; Stop 07/19/19 at 17:07; Status DC Info (Tpn Per Pharmacy) 1 each PRN DAILY PRN MC SEE COMMENTS Last administered on 07/21/19at 11:58; Start 07/19/19 at 17:00; Stop 07/21/19 at 19:42; Status DC Magnesium Sulfate/ Dextrose 100 ml @ 100 mls/hr 1X ONCE IV Last administered on 07/20/19at 09:40; Start 07/20/19 at 09:45; Stop 07/20/19 at 10:44; Status DC Magnesium Sulfate/ Dextrose 100 ml @ 100 mls/hr 1X ONCE IV Last administered on 07/20/19at 11:43; Start 07/20/19 at 09:45; Stop 07/20/19 at 10:44; Status DC Potassium Chloride/Water 100 ml @ 100 mls/hr Q1H IV Last administered on 07/20/19at 15:45; Start 07/20/19 at 09:45; Stop 07/20/19 at 13:44; Status DC Amiodarone HCl 450 mg/Dextrose 259 ml @ 0 mls/hr CONT PRN IV SEE I/O RECORD; Start 07/20/19 at 10:00; Status Cancel Lidocaine HCl (Lidocaine HCl 2% Abboject) 80 mg 1X ONCE IV Last administered on 07/20/19at 10:11; Start 07/20/19 at 10:00; Stop 07/20/19 at 10:03; Status DC Lidocaine HCl/ Dextrose 500 ml @ 0 mls/hr CONT PRN IV SEE I/O RECORD Last administered on 07/20/19at 10:15; Start 07/20/19 at 10:00; Stop 07/21/19 at 15:07; Status DC Furosemide (Lasix) 40 mg DAILY IVP Last administered on 07/22/19at 09:03; Start 07/21/19 at 09:00 Sodium Chloride 90 meq/Potassium Chloride 50 meq/ Potassium Phosphate 13.6 mmol /Magnesium Sulfate 10 meq/ Calcium Gluconate 10 meq/ Multivitamins 10 ml/Chromium/ Copper/Manganese/ Seleni/Zn 1 ml/ Total Parenteral Nutrition/Amino Acids/Dextrose/ Fat Emulsion Intravenous 1,512 ml @ 63 mls/hr TPN CONT IV Last administered on 07/20/19at 22:01; Start 07/20/19 at 22:00; Stop 07/21/19 at 21:59; Status DC Sodium Chloride 90 meq/Potassium Chloride 50 meq/ Potassium Phosphate 13.6 mmol/Magnesium Sulfate 10 meq/ Calcium Gluconate 10 meq/ Multivitamins 10 ml/Chromium/ Copper/Manganese/ Seleni/Zn 1 ml/ Total Parenteral Nutrition/Amino Acids/Dextrose/ Fat Emulsion Intravenous 1,512 ml @ 63 mls/hr TPN CONT IV ; Start 07/21/19 at 22:00; Stop 07/22/19 at 09:05; Status DC Potassium Chloride (Klor-Con) 40 meq 1X ONCE PO Last administered on 07/21/19at 15:38; Start 07/21/19 at 14:30; Stop 07/21/19 at 14:33; Status DC Amiodarone HCl (Cordarone) 400 mg DAILY PO Last administered on 07/22/19at 09:02; Start 07/22/19 at 09:00 Amiodarone HCl (Cordarone) 200 mg 1X ONCE PO Last administered on 07/21/19at 15:38; Start 07/21/19 at 15:15; Stop 07/21/19 at 15:16; Status DC Info (Tpn Per Pharmacy) 1 each PRN DAILY PRN MC SEE COMMENTS; Start 07/22/19 at 08:45; Status Cancel Piperacillin Sod/ Tazobactam Sod 3.375 gm/Sodium Chloride 50 ml @ 100 mls/hr Q6HRS IV ; Start 07/22/19 at 12:00 Active Scripts Active Toprol XL (Metoprolol Succinate) 50 Mg Tab.er.24h 50 Mg PO DAILY Metolazone 2.5 Mg Tablet 2.5 Mg PO QODAY Furosemide 40 Mg Tablet 40 Mg PO [id number] Klor-Con M20 (Potassium Chloride) 20 Meq Tab.er.prt 20 Meq PO BIDWMEALS Amiodarone Hcl 200 Mg Tablet 200 Mg PO DAILY Eliquis (Apixaban) 5 Mg Tablet 5 Mg PO BID Reported Acetaminophen 325 Mg Tablet 325 Mg PO Q6HRS Dicyclomine Hcl 10 Mg Capsule 1 Cap PO PRN TID PRN Nexium Capsule (Esomeprazole Magnesium) 40 Mg Capsule.dr 40 Mg PO DAILYAC Oxycodone Hcl Immed.release (Oxycodone Hcl) 15 Mg Tablet 15 Mg PO PRN Q12HR PRN Alprazolam 1 Mg Tablet 1 Tab PO BID Vitals/I & O Vital Sign - Last 24 Hours 07/21/19 07/21/19 07/21/19 07/21/19 11:46 12:00 12:00 12:00 Temp 98.4 98.4 Pulse 72 72 Resp 16 B/P (MAP) 96/12 (40) Pulse Ox 97 97 O2 Delivery Ventilator Mechanical Ventilator Ventilator 07/21/19 07/21/19 07/21/19 07/21/19 12:57 13:00 14:00 15:00 Pulse 70 64 68 Resp 16 16 16 B/P (MAP) 98/70 (79) 98/64 (75) 98/70 (79) Pulse Ox 98 99 99 99 O2 Delivery Ventilator Ventilator Ventilator Ventilator 07/21/19 07/21/19 07/21/19 07/21/19 15:38 15:41 16:00 16:00 Temp 98.5 98.5 Pulse 68 72 Resp 16 B/P (MAP) 117/61 98/12 (40) Pulse Ox 98 97 O2 Delivery Ventilator Mechanical Ventilator Ventilator 07/21/19 07/21/19 07/21/19 07/21/19 16:00 17:00 17:55 18:00 Pulse 72 82 76 Resp 16 16 B/P (MAP) 167/83 (111) 134/69 (90) Pulse Ox 99 97 99 O2 Delivery Ventilator Ventilator Ventilator 07/21/19 07/21/19 07/21/19 07/21/19 18:06 19:00 20:00 20:00 Temp 97.8 97.8 Pulse 85 64 62 Resp 16 16 B/P (MAP) 151/86 97/64 (75) 98/52 (67) Pulse Ox 97 98 O2 Delivery Ventilator Mechanical Ventilator Ventilator 07/21/19 07/21/19 07/21/19 07/21/19 20:00 20:30 21:00 21:03 Pulse 65 66 Resp 16 B/P (MAP) 98/66 (77) Pulse Ox 98 98 98 O2 Delivery Ventilator Ventilator O2 Flow Rate 15.0 07/21/19 07/21/19 07/21/19 07/21/19 21:33 22:00 23:00 23:31 Pulse 61 59 62 Resp 16 16 B/P (MAP) 119/59 (79) 123/60 (81) 126/64 Pulse Ox 98 97 97 O2 Delivery Ventilator Ventilator O2 Flow Rate 15.0 07/21/19 07/21/19 07/21/19 07/22/19 23:50 23:50 23:55 00:00 Temp 98.7 98.7 Pulse 61 62 Resp 16 B/P (MAP) 97/60 (72) Pulse Ox 98 97 O2 Delivery Mechanical Ventilator Ventilator Ventilator 07/22/19 07/22/19 07/22/19 07/22/19 01:00 01:51 02:00 03:00 Pulse 64 65 57 Resp 16 16 16 B/P (MAP) 125/60 (81) 129/61 (83) 101/48 (65) Pulse Ox 97 98 98 97 O2 Delivery Ventilator Ventilator Ventilator Ventilator 07/22/19 07/22/19 07/22/19 07/22/19 04:00 04:00 04:00 05:00 Pulse 55 57 56 Resp 16 16 B/P (MAP) 111/52 (71) 104/50 (68) Pulse Ox 98 98 O2 Delivery Ventilator Mechanical Ventilator Ventilator 07/22/19 07/22/19 07/22/19 07/22/19 05:43 05:45 06:00 07:24 Temp 97.8 97.8 Pulse 55 56 66 Resp 16 16 B/P (MAP) 111/52 108/50 (69) 132/60 (84) Pulse Ox 98 98 98 O2 Delivery Ventilator Ventilator Ventilator 07/22/19 07/22/19 07/22/19 07/22/19 07:42 07:59 08:07 08:11 Pulse 77 85 Resp 16 B/P (MAP) 157/69 (98) Pulse Ox 97 94 O2 Delivery Ventilator Mechanical Ventilator Ventilator 07/22/19 07/22/19 07/22/19 07/22/19 08:57 09:02 10:27 11:04 Pulse 70 70 85 71 Resp 16 16 16 B/P (MAP) 132/59 (83) 132/59 139/61 (87) 137/62 (87) Pulse Ox 98 96 96 O2 Delivery Ventilator Ventilator Ventilator 07/22/19 11:28 Pulse Ox 97 O2 Delivery Ventilator Intake and Output 07/21/19 07/21/19 07/22/19 14:59 22:59 06:59 Intake Total 1199 ml 657 ml Output Total 290 ml 445 ml 550 ml Balance -290 ml 754 ml 107 ml RICK CAROLINA MD July 22, 2019 11:47
[2019-07-22] MEDS: PIPERACILLIN/TAZOBACTAM 3.375 GM in IV NORMAL SALINE 50ML 50 ML IV SCH ×3 (11:57→23:40)
[2019-07-22] MEDS: MORPHINE SULFATE 30 ML IV PRN (11:59)
--- NOTE | 2019-07-22 12:50 | PDOC ---
SUBJECTIVE ROS Follow-up for acute on chronic renal insufficiency Patient remains on the ventilator. He was just sedated and blood pressures did drop. Continues to have an A-line. Urine output has been acceptable however fluid balance is positive presumably due to tube feeds OBJECTIVE Vital Signs Vital Signs Date Time Temp Pulse Resp B/P (MAP) Pulse Ox O2 Delivery O2 Flow Rate FiO2 07/22/19 12:15 Mechanical Ventilator 07/22/19 12:03 98.3 68 16 107/52 (70) 98 98.3 07/22/19 11:59 15.0 I & 0 Intake and Output 07/22/19 07:00 Intake Total 1856 ml Output Total 1285 ml Balance 571 ml Intake IV Total 1656 ml Tube Feeding 200 ml Output Urine Total 1285 ml PHYSICAL EXAM Physical Exam GEN: Sedated intubated on the vent EYES: Sclera anicteric, Conjunctiva Normal EN: No EN Drainage, Mucous Membranes moist, orally intubated NECK: No visible JVD, or JVP, Supple, no thyromegaly, thick neck CVS: S1S2, no obvious murmur, No Gallop, No Rub, +1 edema bilaterally RESP: Rare basal Rales, no rhonchi, no Acc. Muscle Use GI: BS + ve, NO Bruit, Non Tender, Non Distended, obese abdomen : No CVA tenderness, no suprapubic Tenderness DIAGNOSIS/ASSESSMENT Assessment & Plan DONTAE/ATN especially postcode/possible contrast nephropathy. current fluid and E- lyte status does not necessitate emergent need for dialysis. Will re-evaluate for dialysis in the am. Creatinine has been stable in the twos of late. Continue to watch as long as fluid balance is acceptable. Underlying chronic renal insufficiency cannot be ruled out here after HyperNatremia-May need to increase free water with tube feeds. Hold diuretics Acute on chronic respiratory failure with a/c CHF/Pneumonia ; intubated Acute on chronic systolic CHF- per Cardiology Severe cardiomyopathy; LVEF 10-15%; defer timing and decision regarding restart inotropes to cardiology especially with worsening chest x-ray COMMENT/RELEVANT DATA Meds Current Medications Medications (Trade) Dose Ordered Sig/Chance Start Time Stop Time Status Last Admin Dose Admin Acetaminophen (Tylenol) 650 mg PRN Q6HRS PRN 07/17/19 10:30 Alprazolam (Xanax) 1 mg BID 07/17/19 21:00 07/22/19 09:02 1 MG Amiodarone HCl (Cordarone) 200 mg 1X ONCE 07/21/19 15:15 07/21/19 15:16 DC 07/21/19 15:38 200 MG Amiodarone HCl 150 mg/Dextrose 103 ml @ 618 mls/hr 1X ONCE 07/19/19 12:00 07/19/19 12:09 DC 07/19/19 12:15 618 MLS/HR Amiodarone HCl 450 mg/Dextrose 259 ml @ 0 mls/hr CONT PRN 07/20/19 10:00 Cancel Apixaban (Eliquis) 5 mg BID 07/17/19 21:00 07/22/19 09:02 5 MG Aspirin (Aspirin Chewable) 81 mg [id number] 07/20/19 08:00 07/22/19 09:02 81 MG Aspirin (Aspirin Rectal Supp) 300 mg 1X ONCE 07/17/19 05:45 07/17/19 05:46 DC 07/17/19 06:01 300 MG Atropine Sulfate (ATROPINE 0.5mg SYRINGE) 0.5 mg PRN Q5MIN PRN 07/17/19 11:00 Bumetanide (Bumex) 1 mg 1X ONCE 07/17/19 06:00 07/17/19 06:01 DC 07/17/19 06:00 1 MG Dexmedetomidine HCl 400 mcg/ Sodium Chloride 100 ml @ 0 mls/hr CONT PRN 07/17/19 11:00 07/20/19 13:31 8.5 MLS/HR Digoxin (Lanoxin) 250 mcg 1X ONCE 07/19/19 04:10 07/19/19 06:15 DC 07/19/19 04:15 250 MCG Epinephrine HCl (EPINEPHrine SYRINGE) 4 mg STK-MED ONCE 07/18/19 16:08 07/19/19 16:08 DC Epinephrine HCl 5 mg/Sodium Chloride 255 ml @ 32.926 mls/ hr CONT PRN 07/18/19 14:00 Etomidate (Amidate) 20 mg 1X ONCE 07/17/19 04:45 07/17/19 04:46 DC 07/17/19 04:43 20 MG Furosemide (Lasix) 40 mg DAILY 07/21/19 09:00 07/22/19 09:03 40 MG Heparin Sodium (Porcine) (Heparin Sodium) 7,000 unit 1X ONCE 07/18/19 14:45 07/18/19 14:52 DC 07/18/19 14:45 7,000 UNIT Heparin Sodium/ Sodium Chloride 500 ml @ As Directed STK-MED ONCE 07/18/19 15:11 07/18/19 15:11 DC Heparin Sodium/ Sodium Chloride (HEPARIN for ARTERIAL LINE FLUSH) 1,000 unit 1X ONCE 07/18/19 14:45 07/18/19 14:52 DC 07/18/19 14:45 1,000 UNIT Info (Anti-Coagulation Monitoring By Pharmacy) 1 each PRN DAILY PRN 07/18/19 08:00 07/20/19 14:42 1 EACH Info (Tpn Per Pharmacy) 1 each PRN DAILY PRN 07/22/19 08:45 Cancel Insulin Human Lispro (HumaLOG) 0-6 UNITS Q6HRS 07/17/19 12:00 Iodixanol (Visipaque 320) 100 ml 1X ONCE 07/18/19 14:45 07/18/19 14:52 DC 07/18/19 14:45 104 ML Lansoprazole (Prevacid) 30 mg DAILY 07/18/19 09:00 07/22/19 09:02 30 MG Lidocaine HCl (Lidocaine 1% 20ml Vial) 20 ml 1X ONCE 07/18/19 14:45 07/18/19 14:52 DC 07/18/19 14:45 10 ML Lidocaine HCl (Lidocaine HCl 2% Abboject) 80 mg 1X ONCE 07/20/19 10:00 07/20/19 10:03 DC 07/20/19 10:11 80 MG Lidocaine HCl (Xylocaine-Mpf 1% 2ml Vial) 2 ml STK-MED ONCE 07/18/19 13:05 07/18/19 13:05 DC Lidocaine HCl/ Dextrose 500 ml @ 0 mls/hr CONT PRN 07/20/19 10:00 07/21/19 15:07 DC 07/20/19 10:15 15 MLS/HR Linezolid/Dextrose 300 ml @ 300 mls/hr Q12HR 07/18/19 09:00 07/20/19 08:25 DC 07/19/19 21:29 300 MLS/HR Magnesium Hydroxide (Milk Of Magnesia) 2,400 mg PRN DAILY PRN 07/17/19 10:30 Magnesium Sulfate 50 ml @ 25 mls/hr 1X ONCE 07/18/19 09:45 07/18/19 11:44 DC 07/18/19 10:03 25 MLS/HR Magnesium Sulfate/ Dextrose 100 ml @ 100 mls/hr 1X ONCE 07/20/19 09:45 07/20/19 10:44 DC 07/20/19 11:43 100 MLS/HR Metolazone (Zaroxolyn) 2.5 mg QODAY 07/19/19 09:00 07/18/19 10:36 DC Metoprolol Tartrate (Lopressor) 12.5 mg Q6HRS 07/19/19 12:00 07/22/19 11:57 12.5 MG Midazolam HCl 100 ml @ 0 mls/hr CONT PRN 07/17/19 07:15 07/21/19 21:00 6 MLS/HR Milrinone Lactate/ Dextrose 100 ml @ 0 mls/hr CONT PRN 07/18/19 07:15 07/20/19 02:37 4.2 MLS/HR Morphine Sulfate 30 ml @ 0 mls/hr CONT PRN PRN 07/18/19 12:45 07/22/19 11:59 2 MLS/HR Morphine Sulfate (Morphine Sulfate) 4 mg PRN Q1HR PRN 07/17/19 11:15 07/18/19 13:53 4 MG Nitroglycerin (Nitrostat) 0.4 mg 1X ONCE 07/17/19 04:30 07/17/19 04:43 DC 07/17/19 04:29 0.4 MG Nitroglycerin/ Dextrose 250 ml @ 0 mls/hr 1X ONCE 07/17/19 04:45 07/17/19 04:46 DC 07/17/19 04:47 1.5 MLS/HR Norepinephrine Bitartrate 32 mg/ Dextrose 282 ml @ 0 mls/hr CONT PRN 07/18/19 11:15 07/19/19 10:39 9 MLS/HR Norepinephrine Bitartrate 8 mg/ Dextrose 258 ml @ 0 mls/hr CONT PRN 07/17/19 06:30 07/18/19 13:40 DC 07/17/19 21:52 11 MLS/HR Ondansetron HCl (Zofran) 4 mg PRN Q8HRS PRN 07/17/19 06:00 07/18/19 05:59 DC Piperacillin Sod/ Tazobactam Sod 2.25 gm/Sodium Chloride 50 ml @ 100 mls/hr Q6HRS 07/17/19 18:00 07/22/19 08:47 DC 07/22/19 05:46 100 MLS/HR Piperacillin Sod/ Tazobactam Sod 3.375 gm/Sodium Chloride 50 ml @ 100 mls/hr Q6HRS 07/22/19 12:00 07/22/19 11:57 100 MLS/HR Piperacillin Sod/ Tazobactam Sod 4.5 gm/Sodium Chloride 100 ml @ 200 mls/hr 1X ONCE 07/17/19 06:00 07/17/19 06:29 DC 07/17/19 11:14 200 MLS/HR Potassium Chloride/Water 100 ml @ 100 mls/hr Q1H 07/20/19 09:45 07/20/19 13:44 DC 07/20/19 15:45 100 MLS/HR Potassium Chloride (Klor-Con) 40 meq 1X ONCE 07/22/19 11:45 07/22/19 11:47 DC 07/22/19 12:03 40 MEQ Propofol 100 ml @ 0 mls/hr CONT PRN 07/17/19 05:15 07/17/19 05:45 1.7 MLS/HR Rocuronium [place] (Zemuron) 50 mg 1X ONCE 07/17/19 04:45 07/17/19 04:46 DC 07/17/19 04:44 50 MG Sodium Chloride 90 meq/Potassium Chloride 50 meq/ Potassium Phosphate 13.6 mmol/Magnesium Sulfate 10 meq/ Calcium Gluconate 10 meq/ Multivitamins 10 ml/Chromium/ Copper/Manganese/ Seleni/Zn 1 ml/ Total Parenteral Nutrition/Amino Acids/Dextrose/ Fat Emulsion Intravenous 1,512 ml @ 63 mls/hr TPN CONT 07/21/19 22:00 07/22/19 09:05 DC Ticagrelor (Brilinta) 90 mg 1X ONCE 07/19/19 17:00 07/19/19 17:07 DC 07/19/19 17:28 90 MG Vancomycin HCl (Vanco Per Pharmacy) 1 each PRN DAILY PRN 07/17/19 06:00 07/17/19 10:41 DC 07/17/19 06:43 1 EACH Vancomycin HCl (Vancomycin Trough Level) 1 each 1X ONCE 07/19/19 06:00 07/19/19 06:01 Cancel Vancomycin HCl 1.75 gm/Sodium Chloride 500 ml @ 250 mls/hr Q24H 07/18/19 06:30 07/17/19 10:38 DC Vancomycin HCl 2 gm/Sodium Chloride 500 ml @ 250 mls/hr 1X ONCE 07/17/19 06:00 07/17/19 07:59 DC 07/17/19 06:15 250 MLS/HR Vecuronium [place] (Norcuron Bolus) 20 mg STK-MED ONCE 07/18/19 12:00 07/19/19 08:48 DC Lab Laboratory Tests Test 07/21/19 17:58 07/21/19 23:29 07/22/19 05:30 07/22/19 05:32 Glucose (Fingerstick) 129 mg/dL (70-99) 102 mg/dL (70-99) 98 mg/dL (70-99) White Blood Count 4.4 x10^3/uL (4.0-11.0) Red Blood Count 3.82 x10^6/uL (4.30-5.70) Hemoglobin 11.3 g/dL (13.0-17.5) Hematocrit 33.9 % (39.0-53.0) Mean Corpuscular Volume 89 fL (79-100) Mean Corpuscular Hemoglobin 30 pg (25-35) Mean Corpuscular Hemoglobin Concent 33 g/dL (31-37) Red Cell Distribution Width 16.5 % (11.5-14.5) Platelet Count 92 x10^3/uL (140-400) Neutrophils (%) (Auto) 76 % (31-73) Lymphocytes (%) (Auto) 12 % (24-48) Monocytes (%) (Auto) 8 % (0-9) Eosinophils (%) (Auto) 4 % (0-3) Basophils (%) (Auto) 0 % (0-3) Neutrophils # (Auto) 3.3 x10^3/uL (1.8-7.7) Lymphocytes # (Auto) 0.5 x10^3/uL (1.0-4.8) Monocytes # (Auto) 0.3 x10^3/uL (0.0-1.1) Eosinophils # (Auto) 0.2 x10^3/uL (0.0-0.7) Basophils # (Auto) 0.0 x10^3/uL (0.0-0.2) Sodium Level 149 mmol/L (136-145) Potassium Level 3.7 mmol/L (3.5-5.1) Chloride Level 113 mmol/L (98-107) Carbon Dioxide Level 27 mmol/L (21-32) Anion Gap 9 (6-14) Blood Urea Nitrogen 70 mg/dL (8-26) Creatinine 1.9 mg/dL (0.7-1.3) Estimated GFR (Cockcroft-Gault) 34.9 Glucose Level 110 mg/dL (70-99) Calcium Level 7.6 mg/dL (8.5-10.1) Phosphorus Level 2.9 mg/dL (2.6-4.7) Magnesium Level 2.5 mg/dL (1.8-2.4) Test 07/22/19 07:55 07/22/19 12:00 O2 Saturation 96 % (92-99) Arterial Blood pH 7.41 (7.35-7.45) Arterial Blood pCO2 at Patient Temp 38 mmHg (35-46) Arterial Blood pO2 at Patient Temp 89 mmHg (65-108) Arterial Blood HCO3 24 mmol/L (21-28) Arterial Blood Base Excess -1 mmol/L (-3-3) FiO2 40 Glucose (Fingerstick) 107 mg/dL (70-99) Results All relevant outside records, renal labs, imaging studies, telemetry/EKG's were reviewed. KAROLINA DORSEY MD July 22, 2019 12:50
--- NOTE | 2019-07-22 14:05 | PDOC ---
PROGRESS NOTES Subjective Subjective Patient seen and examined Objective Objective Vital Signs Date Time Temp Pulse Resp B/P (MAP) Pulse Ox O2 Delivery O2 Flow Rate FiO2 07/22/19 13:11 59 16 96/48 (64) 96 Ventilator 07/22/19 12:29 15.0 07/22/19 12:03 98.3 98.3 Intake and Output 07/22/19 07:00 Intake Total 1856 ml Output Total 1285 ml Balance 571 ml Intake IV Total 1656 ml Tube Feeding 200 ml Output Urine Total 1285 ml Physical Exam Abdomen: Normal bowel sounds Heart: Regular rate General: mild distress Lungs: Other (Decreased breath sounds) Assessment Assessment Problems Medical Problems: (1) Acute exacerbation of CHF (congestive heart failure) Status: Acute (2) Acute on chronic renal insufficiency Status: Acute (3) Elevated troponin I level Status: Acute (4) Septic shock Status: Acute (5) Suspected COVID-19 virus infection Status: Acute Assessment Acute on chronic respiratory failure with a/c CHF, PNA;remains intubated. COVID negative Acute on chronic systolic CHF: Fluid balance positive. Will restart milrinone and monitor. ICM/NICM; EF better at 40-45% CAD; s/p PCI/DARSHAN to the RCA Septic shock; as per ID DONTAE on CKD; cardiorenal syndrome. Followed by renal. Arrhythmia: noted with PAFIB/RVR and polymorphic VT. Rhythm improved overnight. Comment Review of Relevant I have reviewed the following items juan (where applicable) has been applied. Labs Laboratory Tests Test 07/20/19 18:00 07/20/19 18:15 07/20/19 23:56 07/21/19 05:00 Sodium Level 145 mmol/L (136-145) 143 mmol/L (136-145) Potassium Level 4.4 mmol/L (3.5-5.1) 4.1 mmol/L (3.5-5.1) Chloride Level 110 mmol/L (98-107) 110 mmol/L (98-107) Carbon Dioxide Level 31 mmol/L (21-32) 26 mmol/L (21-32) Anion Gap 4 (6-14) 7 (6-14) Blood Urea Nitrogen 60 mg/dL (8-26) 62 mg/dL (8-26) Creatinine 2.4 mg/dL (0.7-1.3) 2.1 mg/dL (0.7-1.3) Estimated GFR (Cockcroft-Gault) 26.7 31.1 Glucose Level 108 mg/dL (70-99) 150 mg/dL (70-99) Calcium Level 7.4 mg/dL (8.5-10.1) 7.5 mg/dL (8.5-10.1) Magnesium Level 2.2 mg/dL (1.8-2.4) 2.4 mg/dL (1.8-2.4) Glucose (Fingerstick) 108 mg/dL (70-99) 129 mg/dL (70-99) White Blood Count 6.2 x10^3/uL (4.0-11.0) Red Blood Count 4.36 x10^6/uL (4.30-5.70) Hemoglobin 12.7 g/dL (13.0-17.5) Hematocrit 38.9 % (39.0-53.0) Mean Corpuscular Volume 89 fL (79-100) Mean Corpuscular Hemoglobin 29 pg (25-35) Mean Corpuscular Hemoglobin Concent 33 g/dL (31-37) Red Cell Distribution Width 16.7 % (11.5-14.5) Platelet Count 118 x10^3/uL (140-400) Neutrophils (%) (Auto) 77 % (31-73) Lymphocytes (%) (Auto) 11 % (24-48) Monocytes (%) (Auto) 9 % (0-9) Eosinophils (%) (Auto) 3 % (0-3) Basophils (%) (Auto) 1 % (0-3) Neutrophils # (Auto) 4.8 x10^3/uL (1.8-7.7) Lymphocytes # (Auto) 0.7 x10^3/uL (1.0-4.8) Monocytes # (Auto) 0.5 x10^3/uL (0.0-1.1) Eosinophils # (Auto) 0.2 x10^3/uL (0.0-0.7) Basophils # (Auto) 0.0 x10^3/uL (0.0-0.2) Phosphorus Level 3.4 mg/dL (2.6-4.7) Total Bilirubin 1.0 mg/dL (0.2-1.0) Direct Bilirubin 0.3 mg/dL (0.0-0.2) Aspartate Amino Transf (AST/SGOT) 47 U/L (15-37) Alanine Aminotransferase (ALT/SGPT) 21 U/L (16-63) Alkaline Phosphatase 49 U/L (46-116) Total Protein 5.0 g/dL (6.4-8.2) Albumin 1.8 g/dL (3.4-5.0) Test 07/21/19 05:45 07/21/19 09:00 07/21/19 17:58 07/21/19 23:29 Glucose (Fingerstick) 137 mg/dL (70-99) 129 mg/dL (70-99) 102 mg/dL (70-99) O2 Saturation 97 % (92-99) Arterial Blood pH 7.42 (7.35-7.45) Arterial Blood pCO2 at Patient Temp 45 mmHg (35-46) Arterial Blood pO2 at Patient Temp 100 mmHg (65-108) Arterial Blood HCO3 29 mmol/L (21-28) Arterial Blood Base Excess 4 mmol/L (-3-3) FiO2 50% vent Test 07/22/19 05:30 07/22/19 05:32 07/22/19 07:55 07/22/19 12:00 White Blood Count 4.4 x10^3/uL (4.0-11.0) Red Blood Count 3.82 x10^6/uL (4.30-5.70) Hemoglobin 11.3 g/dL (13.0-17.5) Hematocrit 33.9 % (39.0-53.0) Mean Corpuscular Volume 89 fL (79-100) Mean Corpuscular Hemoglobin 30 pg (25-35) Mean Corpuscular Hemoglobin Concent 33 g/dL (31-37) Red Cell Distribution Width 16.5 % (11.5-14.5) Platelet Count 92 x10^3/uL (140-400) Neutrophils (%) (Auto) 76 % (31-73) Lymphocytes (%) (Auto) 12 % (24-48) Monocytes (%) (Auto) 8 % (0-9) Eosinophils (%) (Auto) 4 % (0-3) Basophils (%) (Auto) 0 % (0-3) Neutrophils # (Auto) 3.3 x10^3/uL (1.8-7.7) Lymphocytes # (Auto) 0.5 x10^3/uL (1.0-4.8) Monocytes # (Auto) 0.3 x10^3/uL (0.0-1.1) Eosinophils # (Auto) 0.2 x10^3/uL (0.0-0.7) Basophils # (Auto) 0.0 x10^3/uL (0.0-0.2) Sodium Level 149 mmol/L (136-145) Potassium Level 3.7 mmol/L (3.5-5.1) Chloride Level 113 mmol/L (98-107) Carbon Dioxide Level 27 mmol/L (21-32) Anion Gap 9 (6-14) Blood Urea Nitrogen 70 mg/dL (8-26) Creatinine 1.9 mg/dL (0.7-1.3) Estimated GFR (Cockcroft-Gault) 34.9 Glucose Level 110 mg/dL (70-99) Calcium Level 7.6 mg/dL (8.5-10.1) Phosphorus Level 2.9 mg/dL (2.6-4.7) Magnesium Level 2.5 mg/dL (1.8-2.4) Glucose (Fingerstick) 98 mg/dL (70-99) 107 mg/dL (70-99) O2 Saturation 96 % (92-99) Arterial Blood pH 7.41 (7.35-7.45) Arterial Blood pCO2 at Patient Temp 38 mmHg (35-46) Arterial Blood pO2 at Patient Temp 89 mmHg (65-108) Arterial Blood HCO3 24 mmol/L (21-28) Arterial Blood Base Excess -1 mmol/L (-3-3) FiO2 40 Laboratory Tests Test 07/21/19 17:58 07/21/19 23:29 07/22/19 05:30 07/22/19 05:32 Glucose (Fingerstick) 129 mg/dL (70-99) 102 mg/dL (70-99) 98 mg/dL (70-99) White Blood Count 4.4 x10^3/uL (4.0-11.0) Red Blood Count 3.82 x10^6/uL (4.30-5.70) Hemoglobin 11.3 g/dL (13.0-17.5) Hematocrit 33.9 % (39.0-53.0) Mean Corpuscular Volume 89 fL (79-100) Mean Corpuscular Hemoglobin 30 pg (25-35) Mean Corpuscular Hemoglobin Concent 33 g/dL (31-37) Red Cell Distribution Width 16.5 % (11.5-14.5) Platelet Count 92 x10^3/uL (140-400) Neutrophils (%) (Auto) 76 % (31-73) Lymphocytes (%) (Auto) 12 % (24-48) Monocytes (%) (Auto) 8 % (0-9) Eosinophils (%) (Auto) 4 % (0-3) Basophils (%) (Auto) 0 % (0-3) Neutrophils # (Auto) 3.3 x10^3/uL (1.8-7.7) Lymphocytes # (Auto) 0.5 x10^3/uL (1.0-4.8) Monocytes # (Auto) 0.3 x10^3/uL (0.0-1.1) Eosinophils # (Auto) 0.2 x10^3/uL (0.0-0.7) Basophils # (Auto) 0.0 x10^3/uL (0.0-0.2) Sodium Level 149 mmol/L (136-145) Potassium Level 3.7 mmol/L (3.5-5.1) Chloride Level 113 mmol/L (98-107) Carbon Dioxide Level 27 mmol/L (21-32) Anion Gap 9 (6-14) Blood Urea Nitrogen 70 mg/dL (8-26) Creatinine 1.9 mg/dL (0.7-1.3) Estimated GFR (Cockcroft-Gault) 34.9 Glucose Level 110 mg/dL (70-99) Calcium Level 7.6 mg/dL (8.5-10.1) Phosphorus Level 2.9 mg/dL (2.6-4.7) Magnesium Level 2.5 mg/dL (1.8-2.4) Test 07/22/19 07:55 07/22/19 12:00 O2 Saturation 96 % (92-99) Arterial Blood pH 7.41 (7.35-7.45) Arterial Blood pCO2 at Patient Temp 38 mmHg (35-46) Arterial Blood pO2 at Patient Temp 89 mmHg (65-108) Arterial Blood HCO3 24 mmol/L (21-28) Arterial Blood Base Excess -1 mmol/L (-3-3) FiO2 40 Glucose (Fingerstick) 107 mg/dL (70-99) Microbiology 07/17/19 Urine Culture - Final, Complete 07/17/19 Urine Culture Result 1 (BOYD) - Final, Complete 07/17/19 Blood Culture - Final, Complete NO GROWTH AFTER 5 DAYS 07/17/19 Nose/Throat Culture - Final, Complete 07/17/19 - Final, Complete Medications Current Medications Nitroglycerin (Nitrostat) 0.4 mg STK-MED ONCE SL ; Start 07/17/19 at 04:28; Stop 07/17/19 at 04:28; Status DC Nitroglycerin (Nitrostat) 0.4 mg 1X ONCE SL Last administered on 07/17/19at 04:29; Start 07/17/19 at 04:30; Stop 07/17/19 at 04:43; Status DC Nitroglycerin/ Dextrose 250 ml @ 0 mls/hr 1X ONCE IV Last administered on 07/17/19at 04:47; Start 07/17/19 at 04:45; Stop 07/17/19 at 04:46; Status DC Rocuronium Estelline (Zemuron) 50 mg 1X ONCE IV Last administered on 07/17/19at 04:44; Start 07/17/19 at 04:45; Stop 07/17/19 at 04:46; Status DC Etomidate (Amidate) 20 mg 1X ONCE IV Last administered on 07/17/19at 04:43; St art 07/17/19 at 04:45; Stop 07/17/19 at 04:46; Status DC Propofol 100 ml @ 0 mls/hr CONT PRN IV SEE PROTOCOL Last administered on 07/17/19at 05:45; Start 07/17/19 at 05:15 Aspirin (Aspirin Rectal Supp) 300 mg 1X ONCE AR Last administered on 07/17/19at 06:01; Start 07/17/19 at 05:45; Stop 07/17/19 at 05:46; Status DC Bumetanide (Bumex) 1 mg 1X ONCE IV Last administered on 07/17/19at 06:00; Start 07/17/19 at 06:00; Stop 07/17/19 at 06:01; Status DC Piperacillin Sod/ Tazobactam Sod 4.5 gm/Sodium Chloride 100 ml @ 200 mls/hr 1X ONCE IV Last administered on 07/17/19at 11:14; Start 07/17/19 at 06:00; Stop 07/17/19 at 06:29; Status DC Vancomycin HCl (Vanco Per Pharmacy) 1 each PRN DAILY PRN MC SEE COMMENTS Last administered on 07/17/19at 06:43; Start 07/17/19 at 06:00; Stop 07/17/19 at 10:41; Status DC Vancomycin HCl 2 gm/Sodium Chloride 500 ml @ 250 mls/hr 1X ONCE IV Last administered on 07/17/19at 06:15; Start 07/17/19 at 06:00; Stop 07/17/19 at 07:59; Status DC Ondansetron HCl (Zofran) 4 mg PRN Q8HRS PRN IV NAUSEA/VOMITING; Start 07/17/19 at 06:00; Stop 07/18/19 at 05:59; Status DC Norepinephrine Bitartrate 8 mg/ Dextrose 258 ml @ 0 mls/hr CONT PRN IV SEE I/O RECORD Last administered on 07/17/19at 21:52; Start 07/17/19 at 06:30; Stop 07/18/19 at 13:40; Status DC Vancomycin HCl 1.75 gm/Sodium Chloride 500 ml @ 250 mls/hr Q24H IV ; Start 07/18/19 at 06:30; Stop 07/17/19 at 10:38; Status DC Vancomycin HCl (Vancomycin Trough Level) 1 each 1X ONCE MC ; Start 07/19/19 at 06:00; Stop 07/19/19 at 06:01; Status Cancel Morphine Sulfate (Morphine Sulfate) 6 mg 1X ONCE IV Last administered on 07/17/19at 07:08; Start 07/17/19 at 07:15; Stop 07/17/19 at 07:16; Status DC Midazolam HCl 100 ml @ 0 mls/hr CONT PRN IV SEE PROTOCOL Last administered on 07/21/19at 21:00; Start 07/17/19 at 07:15 Morphine Sulfate (Morphine Sulfate) 4 mg PRN Q1HR PRN IV SEE COMMENTS.; Start 07/17/19 at 08:00; Stop 07/17/19 at 10:38; Status DC Heparin Sodium (Porcine) (Heparin Sodium) 5,000 unit Q12HR SQ ; Start 07/17/19 at 21:00; Stop 07/17/19 at 10:38; Status DC Amiodarone HCl (Cordarone) 200 mg DAILY PO Last administered on 07/21/19at 09:04; Start 07/18/19 at 09:00; Stop 07/21/19 at 15:07; Status DC Metolazone (Zaroxolyn) 2.5 mg QODAY PO ; Start 07/19/19 at 09:00; Stop 07/18/19 at 10:36; Status DC Potassium Chloride (Klor-Con) 20 meq BIDWMEALS PO Last administered on 07/17/19at 16:34; Start 07/17/19 at 17:00; Stop 07/18/19 at 10:36; Status DC Furosemide (Lasix) 40 mg [id number] IVP Last administered on 07/18/19at 08:03; Start 07/17/19 at 14:00; Stop 07/20/19 at 11:02; Status DC Morphine Sulfate (Morphine Sulfate) 2 mg PRN Q4HRS PRN IV SEE COMMENTS.; Start 07/17/19 at 10:30; Status Cancel Apixaban (Eliquis) 5 mg BID FT Last administered on 07/22/19at 09:02; Start 07/17/19 at 21:00 Insulin Human Lispro (HumaLOG) 0-6 UNITS Q6HRS SQ ; Start 07/17/19 at 12:00 Lansoprazole (Prevacid) 30 mg DAILY FT Last administered on 07/22/19at 09:02; Start 07/18/19 at 09:00 Acetaminophen (Tylenol) 650 mg PRN Q6HRS PRN FT MILD PAIN / TEMP > 100.3'F; Start 07/17/19 at 10:30 Alprazolam (Xanax) 1 mg BID FT Last administered on 07/22/19at 09:02; Start 07/17/19 at 21:00 Magnesium Hydroxide (Milk Of Magnesia) 2,400 mg PRN DAILY PRN FT CONSTIPATION; Start 07/17/19 at 10:30 Dexmedetomidine HCl 400 mcg/ Sodium Chloride 100 ml @ 0 mls/hr CONT PRN IV PER PROTOCOL Last administered on 07/20/19at 13:31; Start 07/17/19 at 11:00 Sodium Chloride 500 ml @ 500 mls/hr 1X PRN PRN IV SEE COMMENTS; Start 07/17/19 at 11:00; Stop 07/22/19 at 12:54; Status DC Atropine Sulfate (ATROPINE 0.5mg SYRINGE) 0.5 mg PRN Q5MIN PRN IV SEE COMMENTS; Start 07/17/19 at 11:00 Morphine Sulfate (Morphine Sulfate) 2 mg PRN Q1HR PRN IV SEE COMMENTS. Last administered on 07/17/19at 13:37; Start 07/17/19 at 11:15 Morphine Sulfate (Morphine Sulfate) 4 mg PRN Q1HR PRN IV SEE COMMENTS. Last administered on 07/18/19at 13:53; Start 07/17/19 at 11:15 Piperacillin Sod/ Tazobactam Sod 2.25 gm/Sodium Chloride 50 ml @ 100 mls/hr Q6HRS IV Last administered on 07/22/19at 05:46; Start 07/17/19 at 18:00; Stop at 08:47; Status DC Magnesium Sulfate 50 ml @ 25 mls/hr 1X ONCE IV Last administered on 07/18/19at 08:04; Start 07/18/19 at 07:15; Stop 07/18/19 at 09:14; Status DC Milrinone Lactate/ Dextrose 100 ml @ 0 mls/hr CONT PRN IV SEE I/O RECORD Last administered on 07/20/19at 02:37; Start 07/18/19 at 07:15 Linezolid/Dextrose 300 ml @ 300 mls/hr Q12HR IV Last administered on 07/19/19at 21:29; Start 07/18/19 at 09:00; Stop 07/20/19 at 08:25; Status DC Info (Anti-Coagulation Monitoring By Pharmacy) 1 each PRN DAILY PRN MC SEE COMMENTS Last administered on 07/20/19at 14:42; Start 07/18/19 at 08:00 Vecuronium Estelline (Norcuron Bolus) 10 mg STK-MED ONCE IV ; Start 07/18/19 at 09:12; Stop 07/18/19 at 09:12; Status DC Potassium Chloride/Water 100 ml @ 100 mls/hr 1X ONCE IV Last administered on 07/18/19at 10:04; Start 07/18/19 at 09:45; Stop 07/18/19 at 10:44; Status DC Magnesium Sulfate 50 ml @ 25 mls/hr 1X ONCE IV Last administered on 07/18/19at 10:03; Start 07/18/19 at 09:45; Stop 07/18/19 at 11:44; Status DC Norepinephrine Bitartrate 32 mg/ Dextrose 282 ml @ 0 mls/hr CONT PRN IV SEE I/O RECORD Last administered on 07/19/19at 10:39; Start 07/18/19 at 11:15 Morphine Sulfate 30 ml @ 0 mls/hr CONT PRN PRN IV PER PROTOCOL Last administered on 07/22/19at 11:59; Start 07/18/19 at 12:45 Lidocaine HCl (Xylocaine-Mpf 1% 2ml Vial) 2 ml STK-MED ONCE .ROUTE ; Start 07/18/19 at 13:05; Stop 07/18/19 at 13:05; Status DC Iodixanol (Visipaque 320) 100 ml STK-MED ONCE .ROUTE ; Start 07/18/19 at 13:05; Stop 07/18/19 at 13:06; Status DC Heparin Sodium/ Sodium Chloride 1,500 ml @ As Directed STK-MED ONCE .ROUTE ; Start 07/18/19 at 13:05; Stop 07/18/19 at 13:06; Status DC Vecuronium Estelline (Norcuron Bolus) 10 mg STK-MED ONCE IV ; Start 07/18/19 at 13:49; Stop 07/18/19 at 13:49; Status DC Vecuronium Estelline (Norcuron Bolus) 6 mg PRN Q4HRS PRN IV ANXIETY / AGITATION; Start 07/18/19 at 14:00 Epinephrine HCl 5 mg/Sodium Chloride 255 ml @ 32.926 mls/ hr CONT PRN IV SEE I/O RECORD; Start 07/18/19 at 14:00 Lidocaine HCl (Lidocaine 1% 20ml Vial) 20 ml STK-MED ONCE .ROUTE ; Start 07/18/19 at 14:11; Stop 07/18/19 at 14:11; Status DC Heparin Sodium (Porcine) (Heparin Sodium) 10,000 unit STK-MED ONCE .ROUTE ; Start 07/18/19 at 14:27; Stop 07/18/19 at 14:28; Status DC Heparin Sodium/ Sodium Chloride (HEPARIN for ARTERIAL LINE FLUSH) 1,000 unit 1X ONCE IART Last administered on 07/18/19at 14:45; Start 07/18/19 at 14:45; Stop 07/18/19 at 14:52; Status DC Heparin Sodium/ Sodium Chloride (HEPARIN for ARTERIAL LINE FLUSH) 1,000 unit 1X ONCE IART Last administered on 07/18/19at 14:45; Start 07/18/19 at 14:45; Stop 07/18/19 at 14:52; Status DC Iodixanol (Visipaque 320) 100 ml 1X ONCE IART Last administered on 07/18/19at 14:45; Start 07/18/19 at 14:45; Stop 07/18/19 at 14:52; Status DC Heparin Sodium (Porcine) (Heparin Sodium) 7,000 unit 1X ONCE IV Last administered on 07/18/19at 14:45; Start 07/18/19 at 14:45; Stop 07/18/19 at 14:52; Status DC Lidocaine HCl (Lidocaine 1% 20ml Vial) 20 ml 1X ONCE INJ Last administered on 07/18/19at 14:45; Start 07/18/19 at 14:45; Stop 07/18/19 at 14:52; Status DC Heparin Sodium/ Sodium Chloride 500 ml @ As Directed STK-MED ONCE .ROUTE ; Start 07/18/19 at 15:11; Stop 07/18/19 at 15:11; Status DC Ticagrelor (Brilinta) 180 mg 1X ONCE PO Last administered on 07/18/19at 16:08; Start 07/18/19 at 16:00; Stop 07/18/19 at 16:01; Status DC Digoxin (Lanoxin) 250 mcg 1X ONCE IV ; Start 07/19/19 at 06:15; Stop 07/19/19 at 06:16; Status Cancel Digoxin (Lanoxin) 250 mcg 1X ONCE IV Last administered on 07/19/19at 05:15; Start 07/19/19 at 05:15; Stop 07/19/19 at 06:11; Status DC Digoxin (Lanoxin) 250 mcg 1X ONCE IV Last administered on 07/19/19at 08:48; Start 07/19/19 at 09:00; Stop 07/19/19 at 09:01; Status DC Digoxin (Lanoxin) 250 mcg 1X ONCE IV Last administered on 07/19/19 04:15; Start 07/19/19 at 04:10; Stop 07/19/19 at 06:15; Status DC Vecuronium Estelline (Norcuron Bolus) 20 mg STK-MED ONCE IV ; Start 07/18/19 at 12:00; Stop 07/19/19 at 08:48; Status DC Potassium Chloride/Water 100 ml @ 100 mls/hr 1X ONCE IV Last administered on 07/19/19at 12:13; Start 07/19/19 at 11:45; Stop 07/19/19 at 12:44; Status DC Amiodarone HCl 150 mg/Dextrose 103 ml @ 618 mls/hr 1X ONCE IV Last administered on 07/19/19at 12:15; Start 07/19/19 at 12:00; Stop 07/19/19 at 12 :09; Status DC Metoprolol Tartrate (Lopressor) 12.5 mg Q6HRS PO Last administered on 07/22/19at 11:57; Start 07/19/19 at 12:00 Amiodarone HCl (Cordarone) 300 mg STK-MED ONCE .ROUTE ; Start 07/18/19 at 16:08; Stop 07/19/19 at 16:08; Status DC Epinephrine HCl (EPINEPHrine SYRINGE) 4 mg STK-MED ONCE .ROUTE ; Start 07/18/19 at 16:08; Stop 07/19/19 at 16:08; Status DC Aspirin (Aspirin Chewable) 81 mg 1X ONCE PO Last administered on 07/19/19at 17:28; Start 07/19/19 at 17:00; Stop 07/19/19 at 17:06; Status DC Aspirin (Aspirin Chewable) 81 mg DAILYWBKFT PO Last administered on 07/22/19at 09:02; Start 07/20/19 at 08:00 Ticagrelor (Brilinta) 90 mg BID PO Last administered on 07/22/19 09:02; Start 07/20/19 at 09:00 Ticagrelor (Brilinta) 90 mg 1X ONCE PO Last administered on 07/19/19at 17:28; Start 07/19/19 at 17:00; Stop 07/19/19 at 17:07; Status DC Info (Tpn Per Pharmacy) 1 each PRN DAILY PRN MC SEE COMMENTS Last administered on 07/21/19at 11:58; Start 07/19/19 at 17:00; Stop 07/21/19 at 19:42; Status DC Magnesium Sulfate/ Dextrose 100 ml @ 100 mls/hr 1X ONCE IV Last administered on 07/20/19at 09:40; Start 07/20/19 at 09:45; Stop 07/20/19 at 10:44; Status DC Magnesium Sulfate/ Dextrose 100 ml @ 100 mls/hr 1X ONCE IV Last administered on 07/20/19at 11:43; Start 07/20/19 at 09:45; Stop 07/20/19 at 10:44; Status DC Potassium Chloride/Water 100 ml @ 100 mls/hr Q1H IV Last administered on 07/20/19at 15:45; Start 07/20/19 at 09:45; Stop 07/20/19 at 13:44; Status DC Amiodarone HCl 450 mg/Dextrose 259 ml @ 0 mls/hr CONT PRN IV SEE I/O RECORD; Start 07/20/19 at 10:00; Status Cancel Lidocaine HCl (Lidocaine HCl 2% Abboject) 80 mg 1X ONCE IV Last administered on 07/20/19at 10:11; Start 07/20/19 at 10:00; Stop 07/20/19 at 10:03; Status DC Lidocaine HCl/ Dextrose 500 ml @ 0 mls/hr CONT PRN IV SEE I/O RECORD Last administered on 07/20/19at 10:15; Start 07/20/19 at 10:00; Stop 07/21/19 at 1 5:07; Status DC Furosemide (Lasix) 40 mg DAILY IVP Last administered on 07/22/19at 09:03; Start 07/21/19 at 09:00; Stop 07/22/19 at 12:54; Status DC Sodium Chloride 90 meq/Potassium Chloride 50 meq/ Potassium Phosphate 13.6 mmol/Magnesium Sulfate 10 meq/ Calcium Gluconate 10 meq/ Multivitamins 10 ml/Chromium/ Copper/Manganese/ Seleni/Zn 1 ml/ Total Parenteral Nutrition/Amino Acids/Dextrose/ Fat Emulsion Intravenous 1,512 ml @ 63 mls/hr TPN CONT IV Last administered on 07/20/19at 22:01; Start 07/20/19 at 22:00; Stop 07/21/19 at 21:59; Status DC Sodium Chloride 90 meq/Potassium Chloride 50 meq/ Potassium Phosphate 13.6 mmol/Magnesium Sulfate 10 meq/ Calcium Gluconate 10 meq/ Multivitamins 10 ml/Chromium/ Copper/Manganese/ Seleni/Zn 1 ml/ Total Parenteral Nutrition/Amino Acids/Dextrose/ Fat Emulsion Intravenous 1,512 ml @ 63 mls/hr TPN CONT IV ; Start 07/21/19 at 22:00; Stop 07/22/19 at 09:05; Status DC Potassium Chloride (Klor-Con) 40 meq 1X ONCE PO Last administered on 07/21/19at 15:38; Start 07/21/19 at 14:30; Stop 07/21/19 at 14:33; Status DC Amiodarone HCl (Cordarone) 400 mg DAILY PO Last administered on 07/22/19at 09:02; Start 07/22/19 at 09:00 Amiodarone HCl (Cordarone) 200 mg 1X ONCE PO Last administered on 07/21/19at 15:38; Start 07/21/19 at 15:15; Stop 07/21/19 at 15:16; Status DC Info (Tpn Per Pharmacy) 1 each PRN DAILY PRN MC SEE COMMENTS; Start 07/22/19 at 08:45; Status Cancel Piperacillin Sod/ Tazobactam Sod 3.375 gm/Sodium Chloride 50 ml @ 100 mls/hr Q6HRS IV Last administered on 07/22/19at 11:57; Start 07/22/19 at 12:00 Potassium Chloride (Klor-Con) 40 meq 1X ONCE PO Last administered on 07/22/19at 12:03; Start 07/22/19 at 11:45; Stop 07/22/19 at 11:47; Status DC Desmopressin Acetate (Ddavp) 4 mcg BID SQ ; Start 07/22/19 at 14:00; Stop 07/23/19 at 09:01 Active Scripts Active Toprol XL (Metoprolol Succinate) 50 Mg Tab.er.24h 50 Mg PO DAILY Metolazone 2.5 Mg Tablet 2.5 Mg PO QODAY Furosemide 40 Mg Tablet 40 Mg PO [id number] Klor-Con M20 (Potassium Chloride) 20 Meq Tab.er.prt 20 Meq PO BIDWMEALS Amiodarone Hcl 200 Mg Tablet 200 Mg PO DAILY Eliquis (Apixaban) 5 Mg Tablet 5 Mg PO BID Reported Acetaminophen 325 Mg Tablet 325 Mg PO Q6HRS Dicyclomine Hcl 10 Mg Capsule 1 Cap PO PRN TID PRN Nexium Capsule (Esomeprazole Magnesium) 40 Mg Capsule.dr 40 Mg PO DAILYAC Oxycodone Hcl Immed.release (Oxycodone Hcl) 15 Mg Tablet 15 Mg PO PRN Q12HR PRN Alprazolam 1 Mg Tablet 1 Tab PO BID Vitals/I & O Vital Sign - Last 24 Hours 07/21/19 07/21/19 07/21/19 07/21/19 15:00 15:38 15:41 16:00 Pulse 68 68 Resp 16 B/P (MAP) 98/70 (79) 117/61 Pulse Ox 99 98 O2 Delivery Ventilator Ventilator Mechanical Ventilator 07/21/19 07/21/19 07/21/19 07/21/19 16:00 16:00 17:00 17:55 Temp 98.5 98.5 Pulse 72 72 82 Resp 16 16 B/P (MAP) 98/12 (40) 167/83 (111) Pulse Ox 97 99 97 O2 Delivery Ventilator Ventilator Ventilator 07/21/19 07/21/19 07/21/19 07/21/19 18:00 18:06 19:00 20:00 Pulse 76 85 64 Resp 16 16 B/P (MAP) 134/69 (90) 151/86 97/64 (75) Pulse Ox 99 97 O2 Delivery Ventilator Ventilator Mechanical Ventilator 07/21/19 07/21/19 07/21/19 07/21/19 20:00 20:00 20:30 21:00 Temp 97.8 97.8 Pulse 62 65 66 Resp 16 16 B/P (MAP) 98/52 (67) 98/66 (77) Pulse Ox 98 98 98 O2 Delivery Ventilator Ventilator Ventilator 07/21/19 07/21/19 07/21/19 07/21/19 21:03 21:33 22:00 23:00 Pulse 61 59 Resp 16 16 B/P (MAP) 119/59 (79) 123/60 (81) Pulse Ox 98 98 97 97 O2 Delivery Ventilator Ventilator O2 Flow Rate 15.0 15.0 07/21/19 07/21/19 07/21/19/22/20 23:31 23:50 23:50 23:55 Pulse 62 61 B/P (MAP) 126/64 Pulse Ox 98 O2 Delivery Mechanical Ventilator Ventilator 07/22/19 07/22/19 07/22/19 07/22/19 00:00 01:00 01:51 02:00 Temp 98.7 98.7 Pulse 62 64 65 Resp 16 16 16 B/P (MAP) 97/60 (72) 125/60 (81) 129/61 (83) Pulse Ox 97 97 98 98 O2 Delivery Ventilator Ventilator Ventilator Ventilator 07/22/19 07/22/19 07/22/19 07/22/19 03:00 04:00 04:00 04:00 Pulse 57 55 57 Resp 16 16 B/P (MAP) 101/48 (65) 111/52 (71) Pulse Ox 97 98 O2 Delivery Ventilator Ventilator Mechanical Ventilator 07/22/19 07/22/19 07/22/19 07/22/19 05:00 05:43 05:45 06:00 Pulse 56 55 56 Resp 16 16 B/P (MAP) 104/50 (68) 111/52 108/50 (69) Pulse Ox 98 98 98 O2 Delivery Ventilator Ventilator Ventilator 07/22/19 07/22/19 07/22/19 07/22/19 07:24 07:42 07:59 08:07 Temp 97.8 97.8 Pulse 66 77 Resp 16 B/P (MAP) 132/60 (84) Pulse Ox 98 97 O2 Delivery Ventilator Ventilator Mechanical Ventilator 07/22/19 07/22/19 07/22/19 07/22/19 08:11 08:57 09:02 10:27 Pulse 85 70 70 85 Resp 16 16 16 B/P (MAP) 157/69 (98) 132/59 (83) 132/59 139/61 (87) Pulse Ox 94 98 96 O2 Delivery Ventilator Ventilator Ventilator 07/22/19 07/22/19 07/22/19 07/22/19 11:04 11:28 11:57 11:59 Pulse 71 71 Resp 16 16 B/P (MAP) 137/62 (87) 137/62 Pulse Ox 96 97 97 O2 Delivery Ventilator Ventilator Ventilator O2 Flow Rate 15.0 5/23/20 5/23/20 5/23/20 5/23/20 12:00 12:03 12:15 12:29 Temp 98.3 98.3 Pulse 67 68 Resp 16 16 B/P (MAP) 107/52 (70) Pulse Ox 98 98 O2 Delivery Ventilator Mechanical Ventilator Ventilator O2 Flow Rate 15.0 07/22/19 13:11 Pulse 59 Resp 16 B/P (MAP) 96/48 (64) Pulse Ox 96 O2 Delivery Ventilator Intake and Output 07/21/19 07/21/19 07/22/19 15:00 23:00 07:00 Intake Total 1199 ml 657 ml Output Total 340 ml 395 ml 550 ml Balance -340 ml 804 ml 107 ml JONY OLSON MD July 22, 2019 14:05
[2019-07-22] MEDS: DESMOPRESSIN 4 MCG/ML AMPUL. SQ SCH ×2 (15:07→20:55)
--- NOTE | 2019-07-22 17:29 | NUR ---
Per Dr. Marrero milrinone will not be used on this patient r/t to 3 episodes of torsade 07/18/19. Per Dr. Carola Carroll, since milrinone will not be restarted, lasix is DC'd and Tube feed is continued.
[2019-07-22] MEDS: MIDAZOLAM 100mg/100ml NS BAG 100 ML IV PRN (23:41)
[2019-07-23] VITALS (24 sets, daily range): BP systolic 91–132; BP diastolic 42–55
[2019-07-23] MEDS: MORPHINE SULFATE 30 ML IV PRN ×2 (03:58→18:52)
[2019-07-23] MEDS: PIPERACILLIN/TAZOBACTAM 3.375 GM in IV NORMAL SALINE 50ML 50 ML IV SCH ×3 (05:53→17:27)
[2019-07-23] MEDS: INSULIN LISPRO 300 UNITS/3 ML VIAL. SQ SCH (05:54)
[2019-07-23] MEDS: METOPROLOL TART IMMED RELEASE 25 MG TABLET. PO SCH ×2 (05:54→23:00)
[2019-07-23 06:12] LABS: BASO % 1 % (0-3); EOS # 0.2 x10^3/uL (0.0-0.7); EOS % 3 % (0-3); HEMATOCRIT 34.2 % (39.0-53.0); HEMOGLOBIN 11.3 g/dL (13.0-17.5); LYMPH # 0.5 x10^3/uL (1.0-4.8); LYMPH % 11 % (24-48); MEAN CORPUSCULAR HEMOGLOBIN 30 pg (25-35); MEAN CORPUSCULAR HGB CONC 33 g/dL (31-37); MEAN CORPUSCULAR VOLUME 89 fL (79-100); MONO # 0.4 x10^3/uL (0.0-1.1); MONO % 8 % (0-9); NEUT # 3.8 x10^3/uL (1.8-7.7); NEUT % 77 % (31-73); PLATELET COUNT 103 x10^3/uL (140-400); RED BLOOD COUNT 3.84 x10^6/uL (4.30-5.70); RED CELL DISTRIBUTION WIDTH 16.7 % (11.5-14.5); WHITE BLOOD COUNT 4.9 x10^3/uL (4.0-11.0)
[2019-07-23 06:16] LABS: CALCIUM 7.6 mg/dL (8.5-10.1); CREATININE 1.9 mg/dL (0.7-1.3); GFR 34.9; POTASSIUM 3.4 mmol/L (3.5-5.1)
[2019-07-23] MEDS: LANSOPRAZOLE 30 MG TAB.RAP.DR FT SCH (08:16)
[2019-07-23] MEDS: ASPIRIN CHEWABLE 81 MG TABLET. PO SCH (08:17)
[2019-07-23] MEDS: APIXABAN 5 MG TABLET. FT SCH (08:17)
[2019-07-23] MEDS: ALPRAZolam 0.5 MG TABLET FT SCH ×2 (08:17→21:26)
[2019-07-23] MEDS: AMIODARONE HCL 200 MG TABLET. PO SCH (08:18)
[2019-07-23] MEDS: TICAGRELOR 90 MG TABLET. PO SCH ×2 (08:18→21:26)
--- NOTE | 2019-07-23 08:28 | PDOC ---
Infectious Disease Note Subjective Subjective Awake and calm Denies pain Remains intubated/vent. FiO2 40% PEEP 5 SpO2 100% No fevers last 48 hours Tube feedings 40 ml/hr via OGT Vital Sign Vital Signs Vital Signs Date Time Temp Pulse Resp B/P (MAP) Pulse Ox O2 Delivery O2 Flow Rate FiO2 07/23/19 08:18 55 115/48 07/23/19 07:33 99 Ventilator 07/23/19 07:00 16 07/23/19 04:28 15.0 07/23/19 04:00 98.5 98.5 Physical Exam PHYSICAL EXAM GENERAL: Awake, orally intubated, calm, + mitts HEENT: HANY. ETT and OG tube in place. NECK: Supple. LUNGS: Clear anteriorly HEART: S1, S2. regular ABDOMEN: Soft, bowel sounds present, no guarding : Antunez in place EXTREMITIES: Trace edema, no cyanosis. DERMATOLOGIC: Warm, dry. No generalized rash. NEUROLOGIC: Alert, responsive LIJ without signs of complications Labs Lab Laboratory Tests Test 07/22/19 12:00 07/22/19 18:18 07/22/19 23:39 07/23/19 05:40 Glucose (Fingerstick) 107 mg/dL (70-99) 101 mg/dL (70-99) 96 mg/dL (70-99) White Blood Count 4.9 x10^3/uL (4.0-11.0) Red Blood Count 3.84 x10^6/uL (4.30-5.70) Hemoglobin 11.3 g/dL (13.0-17.5) Hematocrit 34.2 % (39.0-53.0) Mean Corpuscular Volume 89 fL (79-100) Mean Corpuscular Hemoglobin 30 pg (25-35) Mean Corpuscular Hemoglobin Concent 33 g/dL (31-37) Red Cell Distribution Width 16.7 % (11.5-14.5) Platelet Count 103 x10^3/uL (140-400) Neutrophils (%) (Auto) 77 % (31-73) Lymphocytes (%) (Auto) 11 % (24-48) Monocytes (%) (Auto) 8 % (0-9) Eosinophils (%) (Auto) 3 % (0-3) Basophils (%) (Auto) 1 % (0-3) Neutrophils # (Auto) 3.8 x10^3/uL (1.8-7.7) Lymphocytes # (Auto) 0.5 x10^3/uL (1.0-4.8) Monocytes # (Auto) 0.4 x10^3/uL (0.0-1.1) Eosinophils # (Auto) 0.2 x10^3/uL (0.0-0.7) Basophils # (Auto) 0.0 x10^3/uL (0.0-0.2) Sodium Level 149 mmol/L (136-145) Potassium Level 3.4 mmol/L (3.5-5.1) Chloride Level 113 mmol/L (98-107) Carbon Dioxide Level 27 mmol/L (21-32) Anion Gap 9 (6-14) Blood Urea Nitrogen 63 mg/dL (8-26) Creatinine 1.9 mg/dL (0.7-1.3) Estimated GFR (Cockcroft-Gault) 34.9 Glucose Level 109 mg/dL (70-99) Calcium Level 7.6 mg/dL (8.5-10.1) Magnesium Level 2.0 mg/dL (1.8-2.4) Test 07/23/19 05:49 Glucose (Fingerstick) 106 mg/dL (70-99) Micro Objective Assessment Sepsis. Leukocytosis - improved Lactic acidosis. Acute hypoxic respiratory failure, s/p intubation. Bilateral pulmonary infiltrates -COVID-19 negative Congestive heart failure. s/p VT arrest 07/17 -On amiodarone. s/p PCI with stent placement, 07/17. Cardiomyopathy. DONTAE on Chronic kidney disease. Gastroesophageal reflux disease. Thrombocytopenia Plan Plan of Care Continues Zosyn, 07/16 off Zyvox; s/p 1 dose of vancomycin Cultures neg Maintain aspiration precautions Supportive care Critically ill Attending Co-Sign The patient was seen and examined at the bedside. The chart was reviewed. The case was discussed with EMERGENCY MEDICAL SERVICE MANAGER. Agree with the plan of care. HELDER GOMEZ APRN July 23, 2019 08:28 MARGRET DORSEY MD July 23, 2019 12:35
[2019-07-23 08:36] LABS: BASE EXCESS ABG 3 mmol/L (-3-3); HCO3 ABG 27 mmol/L (21-28); PCO2 ABG 41 mmHg (35-46); PO2 ABG 97 mmHg (65-108); SAT O2 ABG 97 % (92-99)
[2019-07-23 08:38] LABS: FIO2 ABG 40%
--- NOTE | 2019-07-23 10:14 | PDOC ---
PROGRESS NOTES Subjective Subjective intubated and alert. discussed with his nurse. sinus bradycardia 55 with a good BP. lab reviewed. sodium 149 and potassium 3.4 and bun 69 and creatinine 1.9. has gross hematuria Objective Objective Vital Signs Date Time Temp Pulse Resp B/P (MAP) Pulse Ox O2 Delivery O2 Flow Rate FiO2 07/23/19 09:12 98 Ventilator 07/23/19 09:00 58 16 127/53 (77) 07/23/19 08:00 98.4 98.4 07/23/19 04:28 15.0 Intake and Output 07/23/19 07:00 Intake Total 2347 ml Output Total 1665 ml Balance 682 ml Intake IV Total 211 ml Tube Feeding 1736 ml Other 400 ml Output Urine Total 1665 ml Physical Exam Abdomen: Soft, Other (obese) Heart: Regular rate, Normal S1, Normal S2 Extremities: No edema General: Alert HEENT: Atraumatic Lungs: Clear to auscultation Neuro: Other (intubated) Psych/Mental Status: Other (intubated) Skin: No rashes Assessment Assessment Problems1. Acute pulmonary edema. compensated 2. Acute on chronic systolic congestive heart failure.compensated 3. Severe cardiomyopathy with left ventricular ejection fraction 40-45% 07/19 per echo 4. Acute hypoxic and hypercarbic respiratory failure, on the ventilator. 5. Paroxysmal atrial fibrillation, currently in NSR 6. sepsis with shock, shock resolved 7. chronic kidney disease stage 3. bun higher due to intravascular volume depletion. off lasix 8. Gastroesophageal reflux disease. 9. Leukocytosis resolved bilateral lung infiltrates. suspect pneumonia hypernatremia mild hypokalemia hypomagnesemia resolved VT cardiac arrest 07/17 and again 07/19 PCI RCA 07/17 gross hematuria Medical Problems: (1) Acute exacerbation of CHF (congestive heart failure) Status: Acute (2) Acute on chronic renal insufficiency Status: Acute (3) Elevated troponin I level Status: Acute (4) Septic shock Status: Acute (5) Suspected COVID-19 virus infection Status: Acute Plan Plan of Care hold eliquis due to gross henaturia increase water via OCT irrigate jade with sterile saline prn gross hematuria decrease metoprolol cxr and lab tomorrow continue ventilator support. defer weaning to pulmonary replete kcl continue iv zosyn Comment Review of Relevant I have reviewed the following items juan (where applicable) has been applied. Labs Laboratory Tests Test 07/21/19 17:58 07/21/19 23:29 07/22/19 05:30 07/22/19 05:32 Glucose (Fingerstick) 129 mg/dL (70-99) 102 mg/dL (70-99) 98 mg/dL (70-99) White Blood Count 4.4 x10^3/uL (4.0-11.0) Red Blood Count 3.82 x10^6/uL (4.30-5.70) Hemoglobin 11.3 g/dL (13.0-17.5) Hematocrit 33.9 % (39.0-53.0) Mean Corpuscular Volume 89 fL (79-100) Mean Corpuscular Hemoglobin 30 pg (25-35) Mean Corpuscular Hemoglobin Concent 33 g/dL (31-37) Red Cell Distribution Width 16.5 % (11.5-14.5) Platelet Count 92 x10^3/uL (140-400) Neutrophils (%) (Auto) 76 % (31-73) Lymphocytes (%) (Auto) 12 % (24-48) Monocytes (%) (Auto) 8 % (0-9) Eosinophils (%) (Auto) 4 % (0-3) Basophils (%) (Auto) 0 % (0-3) Neutrophils # (Auto) 3.3 x10^3/uL (1.8-7.7) Lymphocytes # (Auto) 0.5 x10^3/uL (1.0-4.8) Monocytes # (Auto) 0.3 x10^3/uL (0.0-1.1) Eosinophils # (Auto) 0.2 x10^3/uL (0.0-0.7) Basophils # (Auto) 0.0 x10^3/uL (0.0-0.2) Sodium Level 149 mmol/L (136-145) Potassium Level 3.7 mmol/L (3.5-5.1) Chloride Level 113 mmol/L (98-107) Carbon Dioxide Level 27 mmol/L (21-32) Anion Gap 9 (6-14) Blood Urea Nitrogen 70 mg/dL (8-26) Creatinine 1.9 mg/dL (0.7-1.3) Estimated GFR (Cockcroft-Gault) 34.9 Glucose Level 110 mg/dL (70-99) Calcium Level 7.6 mg/dL (8.5-10.1) Phosphorus Level 2.9 mg/dL (2.6-4.7) Magnesium Level 2.5 mg/dL (1.8-2.4) Test 07/22/19 07:55 07/22/19 12:00 07/22/19 18:18 07/22/19 23:39 O2 Saturation 96 % (92-99) Arterial Blood pH 7.41 (7.35-7.45) Arterial Blood pCO2 at Patient Temp 38 mmHg (35-46) Arterial Blood pO2 at Patient Temp 89 mmHg (65-108) Arterial Blood HCO3 24 mmol/L (21-28) Arterial Blood Base Excess -1 mmol/L (-3-3) FiO2 40 Glucose (Fingerstick) 107 mg/dL (70-99) 101 mg/dL (70-99) 96 mg/dL (70-99) Test 07/23/19 05:40 07/23/19 05:49 07/23/19 08:00 White Blood Count 4.9 x10^3/uL (4.0-11.0) Red Blood Count 3.84 x10^6/uL (4.30-5.70) Hemoglobin 11.3 g/dL (13.0-17.5) Hematocrit 34.2 % (39.0-53.0) Mean Corpuscular Volume 89 fL (79-100) Mean Corpuscular Hemoglobin 30 pg (25-35) Mean Corpuscular Hemoglobin Concent 33 g/dL (31-37) Red Cell Distribution Width 16.7 % (11.5-14.5) Platelet Count 103 x10^3/uL (140-400) Neutrophils (%) (Auto) 77 % (31-73) Lymphocytes (%) (Auto) 11 % (24-48) Monocytes (%) (Auto) 8 % (0-9) Eosinophils (%) (Auto) 3 % (0-3) Basophils (%) (Auto) 1 % (0-3) Neutrophils # (Auto) 3.8 x10^3/uL (1.8-7.7) Lymphocytes # (Auto) 0.5 x10^3/uL (1.0-4.8) Monocytes # (Auto) 0.4 x10^3/uL (0.0-1.1) Eosinophils # (Auto) 0.2 x10^3/uL (0.0-0.7) Basophils # (Auto) 0.0 x10^3/uL (0.0-0.2) Sodium Level 149 mmol/L (136-145) Potassium Level 3.4 mmol/L (3.5-5.1) Chloride Level 113 mmol/L (98-107) Carbon Dioxide Level 27 mmol/L (21-32) Anion Gap 9 (6-14) Blood Urea Nitrogen 63 mg/dL (8-26) Creatinine 1.9 mg/dL (0.7-1.3) Estimated GFR (Cockcroft-Gault) 34.9 Glucose Level 109 mg/dL (70-99) Calcium Level 7.6 mg/dL (8.5-10.1) Magnesium Level 2.0 mg/dL (1.8-2.4) Glucose (Fingerstick) 106 mg/dL (70-99) O2 Saturation 97 % (92-99) Arterial Blood pH 7.43 (7.35-7.45) Arterial Blood pCO2 at Patient Temp 41 mmHg (35-46) Arterial Blood pO2 at Patient Temp 97 mmHg (65-108) Arterial Blood HCO3 27 mmol/L (21-28) Arterial Blood Base Excess 3 mmol/L (-3-3) FiO2 40% Laboratory Tests Test 07/22/19 12:00 07/22/19 18:18 07/22/19 23:39 07/23/19 05:40 Glucose (Fingerstick) 107 mg/dL (70-99) 101 mg/dL (70-99) 96 mg/dL (70-99) White Blood Count 4.9 x10^3/uL (4.0-11.0) Red Blood Count 3.84 x10^6/uL (4.30-5.70) Hemoglobin 11.3 g/dL (13.0-17.5) Hematocrit 34.2 % (39.0-53.0) Mean Corpuscular Volume 89 fL (79-100) Mean Corpuscular Hemoglobin 30 pg (25-35) Mean Corpuscular Hemoglobin Concent 33 g/dL (31-37) Red Cell Distribution Width 16.7 % (11.5-14.5) Platelet Count 103 x10^3/uL (140-400) Neutrophils (%) (Auto) 77 % (31-73) Lymphocytes (%) (Auto) 11 % (24-48) Monocytes (%) (Auto) 8 % (0-9) Eosinophils (%) (Auto) 3 % (0-3) Basophils (%) (Auto) 1 % (0-3) Neutrophils # (Auto) 3.8 x10^3/uL (1.8-7.7) Lymphocytes # (Auto) 0.5 x10^3/uL (1.0-4.8) Monocytes # (Auto) 0.4 x10^3/uL (0.0-1.1) Eosinophils # (Auto) 0.2 x10^3/uL (0.0-0.7) Basophils # (Auto) 0.0 x10^3/uL (0.0-0.2) Sodium Level 149 mmol/L (136-145) Potassium Level 3.4 mmol/L (3.5-5.1) Chloride Level 113 mmol/L (98-107) Carbon Dioxide Level 27 mmol/L (21-32) Anion Gap 9 (6-14) Blood Urea Nitrogen 63 mg/dL (8-26) Creatinine 1.9 mg/dL (0.7-1.3) Estimated GFR (Cockcroft-Gault) 34.9 Glucose Level 109 mg/dL (70-99) Calcium Level 7.6 mg/dL (8.5-10.1) Magnesium Level 2.0 mg/dL (1.8-2.4) Test 07/23/19 05:49 07/23/19 08:00 Glucose (Fingerstick) 106 mg/dL (70-99) O2 Saturation 97 % (92-99) Arterial Blood pH 7.43 (7.35-7.45) Arterial Blood pCO2 at Patient Temp 41 mmHg (35-46) Arterial Blood pO2 at Patient Temp 97 mmHg (65-108) Arterial Blood HCO3 27 mmol/L (21-28) Arterial Blood Base Excess 3 mmol/L (-3-3) FiO2 40% Microbiology 07/17/19 Urine Culture - Final, Complete 07/17/19 Urine Culture Result 1 (BOYD) - Final, Complete 07/17/19 Blood Culture - Final, Complete NO GROWTH AFTER 5 DAYS 07/17/19 Nose/Throat Culture - Final, Complete 07/17/19 - Final, Complete Medications Current Medications Nitroglycerin (Nitrostat) 0.4 mg STK-MED ONCE SL ; Start 07/17/19 at 04:28; Stop 07/17/19 at 04:28; Status DC Nitroglycerin (Nitrostat) 0.4 mg 1X ONCE SL Last administered on 07/17/19at 04:29; Start 07/17/19 at 04:30; Stop 07/17/19 at 04:43; Status DC Nitroglycerin/ Dextrose 250 ml @ 0 mls/hr 1X ONCE IV Last administered on 07/17/19at 04:47; Start 07/17/19 at 04:45; Stop 07/17/19 at 04:46; Status DC Rocuronium Dunbar (Zemuron) 50 mg 1X ONCE IV Last administered on 07/17/19at 04:44; Start 07/17/19 at 04:45; Stop 07/17/19 at 04:46; Status DC Etomidate (Amidate) 20 mg 1X ONCE IV Last administered on 07/17/19at 04:43; Start 07/17/19 at 04:45; Stop 07/17/19 at 04:46; Status DC Propofol 100 ml @ 0 mls/hr CONT PRN IV SEE PROTOCOL Last administered on 07/17/19at 05:45; Start 07/17/19 at 05:15 Aspirin (Aspirin Rectal Supp) 300 mg 1X ONCE NH Last administered on 07/17/19at 06:01; Start 07/17/19 at 05:45; Stop 07/17/19 at 05:46; Status DC Bumetanide (Bumex) 1 mg 1X ONCE IV Last administered on 07/17/19at 06:00; Start 07/17/19 at 06:00; Stop 07/17/19 at 06:01; Status DC Piperacillin Sod/ Tazobactam Sod 4.5 gm/Sodium Chloride 100 ml @ 200 mls/hr 1X ONCE IV Last administered on 07/17/19at 11:14; Start 07/17/19 at 06:00; Stop 07/17/19 at 06:29; Status DC Vancomycin HCl (Vanco Per Pharmacy) 1 each PRN DAILY PRN MC SEE COMMENTS Last administered on 07/17/19at 06:43; Start 07/17/19 at 06:00; Stop 07/17/19 at 10:41; Status DC Vancomycin HCl 2 gm/Sodium Chloride 500 ml @ 250 mls/hr 1X ONCE IV Last administered on 07/17/19at 06:15; Start 07/17/19 at 06:00; Stop 07/17/19 at 07:59; Status DC Ondansetron HCl (Zofran) 4 mg PRN Q8HRS PRN IV NAUSEA/VOMITING; Start 07/17/19 at 06:00; Stop 07/18/19 at 05:59; Status DC Norepinephrine Bitartrate 8 mg/ Dextrose 258 ml @ 0 mls/hr CONT PRN IV SEE I/O RECORD Last administered on 07/17/19at 21:52; Start 07/17/19 at 06:30; Stop 07/18/19 at 13:40; Status DC Vancomycin HCl 1.75 gm/Sodium Chloride 500 ml @ 250 mls/hr Q24H IV ; Start 07/18/19 at 06:30; Stop 07/17/19 at 10:38; Status DC Vancomycin HCl (Vancomycin Trough Level) 1 each 1X ONCE MC ; Start 07/19/19 at 06:00; Stop 07/19/19 at 06:01; Status Cancel Morphine Sulfate (Morphine Sulfate) 6 mg 1X ONCE IV Last administered on 07/17/19at 07:08; Start 07/17/19 at 07:15; Stop 07/17/19 at 07:16; Status DC Midazolam HCl 100 ml @ 0 mls/hr CONT PRN IV SEE PROTOCOL Last administered on 07/22/19at 23:41; Start 07/17/19 at 07:15 Morphine Sulfate (Morphine Sulfate) 4 mg PRN Q1HR PRN IV SEE COMMENTS.; Start 07/17/19 at 08:00; Stop 07/17/19 at 10:38; Status DC Heparin Sodium (Porcine) (Heparin Sodium) 5,000 unit Q12HR SQ ; Start 07/17/19 at 21:00; Stop 07/17/19 at 10:38; Status DC Amiodarone HCl (Cordarone) 200 mg DAILY PO Last administered on 07/21/19at 09 :04; Start 07/18/19 at 09:00; Stop 07/21/19 at 15:07; Status DC Metolazone (Zaroxolyn) 2.5 mg QODAY PO ; Start 07/19/19 at 09:00; Stop 07/18/19 at 10:36; Status DC Potassium Chloride (Klor-Con) 20 meq BIDWMEALS PO Last administered on 07/17/19at 16:34; Start 07/17/19 at 17:00; Stop 07/18/19 at 10:36; Status DC Furosemide (Lasix) 40 mg [id number] IVP Last administered on 07/18/19at 08:03; Start 07/17/19 at 14:00; Stop 07/20/19 at 11:02; Status DC Morphine Sulfate (Morphine Sulfate) 2 mg PRN Q4HRS PRN IV SEE COMMENTS.; Start 07/17/19 at 10:30; Status Cancel Apixaban (Eliquis) 5 mg BID FT Last administered on 07/23/19at 08:17; Start 07/17/19 at 21:00; Stop 07/23/19 at 10:05; Status DC Insulin Human Lispro (HumaLOG) 0-6 UNITS Q6HRS SQ ; Start 07/17/19 at 12:00; Stop 07/23/19 at 10:06; Status DC Lansoprazole (Prevacid) 30 mg DAILY FT Last administered on 07/23/19at 08:16; Start 07/18/19 at 09:00 Acetaminophen (Tylenol) 650 mg PRN Q6HRS PRN FT MILD PAIN / TEMP > 100.3'F; Start 07/17/19 at 10:30 Alprazolam (Xanax) 1 mg BID FT Last administered on 07/23/19at 08:17; Start 07/17/19 at 21:00 Magnesium Hydroxide (Milk Of Magnesia) 2,400 mg PRN DAILY PRN FT CONSTIPATION; Start 07/17/19 at 10:30 Dexmedetomidine HCl 400 mcg/ Sodium Chloride 100 ml @ 0 mls/hr CONT PRN IV PER PROTOCOL Last administered on 07/20/19at 13:31; Start 07/17/19 at 11:00 Sodium Chloride 500 ml @ 500 mls/hr 1X PRN PRN IV SEE COMMENTS; Start 07/17/19 at 11:00; Stop 07/22/19 at 12:54; Status DC Atropine Sulfate (ATROPINE 0.5mg SYRINGE) 0.5 mg PRN Q5MIN PRN IV SEE COMMENTS; Start 07/17/19 at 11:00 Morphine Sulfate (Morphine Sulfate) 2 mg PRN Q1HR PRN IV SEE COMMENTS. Last administered on 07/17/19at 13:37; Start 07/17/19 at 11:15 Morphine Sulfate (Morphine Sulfate) 4 mg PRN Q1HR PRN IV SEE COMMENTS. Last administered on 07/18/19at 13:53; Start 07/17/19 at 11:15 Piperacillin Sod/ Tazobactam Sod 2.25 gm/Sodium Chloride 50 ml @ 100 mls/hr Q6HRS IV Last administered on 07/22/19at 05:46; Start 07/17/19 at 18:00; Stop 07/22/19 at 08:47; Status DC Magnesium Sulfate 50 ml @ 25 mls/hr 1X ONCE IV Last administered on 07/18/19at 08:04; Start 07/18/19 at 07:15; Stop 07/18/19 at 09:14; Status DC Milrinone Lactate/ Dextrose 100 ml @ 0 mls/hr CONT PRN IV SEE I/O RECORD Last administered on 07/20/19at 02:37; Start 07/18/19 at 07:15; Stop 07/23/19 at 10:03; Status DC Linezolid/Dextrose 300 ml @ 300 mls/hr Q12HR IV Last administered on 07/19/19at 21:29; Start 07/18/19 at 09:00; Stop 07/20/19 at 08:25; Status DC Info (Anti-Coagulation Monitoring By Pharmacy) 1 each PRN DAILY PRN MC SEE COMMENTS Last administered on 07/20/19at 14:42; Start 07/18/19 at 08:00 Vecuronium Dunbar (Norcuron Bolus) 10 mg STK-MED ONCE IV ; Start 07/18/19 at 09:12; Stop 07/18/19 at 09:12; Status DC Potassium Chloride/Water 100 ml @ 100 mls/hr 1X ONCE IV Last administered on 07/18/19at 10:04; Start 07/18/19 at 09:45; Stop 07/18/19 at 10:44; Status DC Magnesium Sulfate 50 ml @ 25 mls/hr 1X ONCE IV Last administered on 07/18/19at 10:03; Start 07/18/19 at 09:45; Stop 07/18/19 at 11:44; Status DC Norepinephrine Bitartrate 32 mg/ Dextrose 282 ml @ 0 mls/hr CONT PRN IV SEE I/O RECORD Last administered on 07/19/19at 10:39; Start 07/18/19 at 11:15; Stop 07/23/19 at 10:05; Status DC Morphine Sulfate 30 ml @ 0 mls/hr CONT PRN PRN IV PER PROTOCOL Last administered on 07/23/19at 03:58; Start 07/18/19 at 12:45 Lidocaine HCl (Xylocaine-Mpf 1% 2ml Vial) 2 ml STK-MED ONCE .ROUTE ; Start 07/18/19 at 13:05; Stop 07/18/19 at 13:05; Status DC Iodixanol (Visipaque 320) 100 ml STK-MED ONCE .ROUTE ; Start 07/18/19 at 13:05; Stop 07/18/19 at 13:06; Status DC Heparin Sodium/ Sodium Chloride 1,500 ml @ As Directed STK-MED ONCE .ROUTE ; Start 07/18/19 at 13:05; Stop 07/18/19 at 13:06; Status DC Vecuronium Dunbar (Norcuron Bolus) 10 mg STK-MED ONCE IV ; Start 07/18/19 at 13:49; Stop 07/18/19 at 13:49; Status DC Vecuronium Dunbar (Norcuron Bolus) 6 mg PRN Q4HRS PRN IV ANXIETY / AGITATION; Start 07/18/19 at 14:00 Epinephrine HCl 5 mg/Sodium Chloride 255 ml @ 32.926 mls/ hr CONT PRN IV SEE I/O RECORD; Start 07/18/19 at 14:00 Lidocaine HCl (Lidocaine 1% 20ml Vial) 20 ml STK-MED ONCE .ROUTE ; Start 07/18/19 at 14:11; Stop 07/18/19 at 14:11; Status DC Heparin Sodium (Porcine) (Heparin Sodium) 10,000 unit STK-MED ONCE .ROUTE ; Start 07/18/19 at 14:27; Stop 07/18/19 at 14:28; Status DC Heparin Sodium/ Sodium Chloride (HEPARIN for ARTERIAL LINE FLUSH) 1,000 unit 1X ONCE IART Last administered on 07/18/19at 14:45; Start 07/18/19 at 14:45; Stop 07/18/19 at 14:52; Status DC Heparin Sodium/ Sodium Chloride (HEPARIN for ARTERIAL LINE FLUSH) 1,000 unit 1X ONCE IART Last administered on 07/18/19at 14:45; Start 07/18/19 at 14:45; Stop 07/18/19 at 14:52; Status DC Iodixanol (Visipaque 320) 100 ml 1X ONCE IART Last administered on 07/18/19at 14:45; Start 07/18/19 at 14:45; Stop 07/18/19 at 14:52; Status DC Heparin Sodium (Porcine) (Heparin Sodium) 7,000 unit 1X ONCE IV Last administered on 07/18/19 14:45; Start 07/18/19 at 14:45; Stop 07/18/19 at 14:52; Status DC Lidocaine HCl (Lidocaine 1% 20ml Vial) 20 ml 1X ONCE INJ Last administered on 07/18/19at 14:45; Start 07/18/19 at 14:45; Stop 07/18/19 at 14:52; Status DC Heparin Sodium/ Sodium Chloride 500 ml @ As Directed STK-MED ONCE .ROUTE ; Start 07/18/19 at 15:11; Stop 07/18/19 at 15:11; Status DC Ticagrelor (Brilinta) 180 mg 1X ONCE PO Last administered on 07/18/19at 16:08; Start 07/18/19 at 16:00; Stop 07/18/19 at 16:01; Status DC Digoxin (Lanoxin) 250 mcg 1X ONCE IV ; Start 07/19/19 at 06:15; Stop 07/19/19 at 06:16; Status Cancel Digoxin (Lanoxin) 250 mcg 1X ONCE IV Last administered on 07/19/19at 05:15; Start 07/19/19 at 05:15; Stop 07/19/19 at 06:11; Status DC Digoxin (Lanoxin) 250 mcg 1X ONCE IV Last administered on 07/19/19at 08:48; Start 07/19/19 at 09:00; Stop 07/19/19 at 09:01; Status DC Digoxin (Lanoxin) 250 mcg 1X ONCE IV Last administered on 07/19/19at 04:15; Start 07/19/19 at 04:10; Stop 07/19/19 at 06:15; Status DC Vecuronium Dunbar (Norcuron Bolus) 20 mg STK-MED ONCE IV ; Start 07/18/19 at 12:00; Stop 07/19/19 at 08:48; Status DC Potassium Chloride/Water 100 ml @ 100 mls/hr 1X ONCE IV Last administered on 07/19/19at 12:13; Start 07/19/19 at 11:45; Stop 07/19/19 at 12:44; Status DC Amiodarone HCl 150 mg/Dextrose 103 ml @ 618 mls/hr 1X ONCE IV Last administered on 07/19/19at 12:15; Start 07/19/19 at 12:00; Stop 07/19/19 at 12:09; Status DC Metoprolol Tartrate (Lopressor) 12.5 mg Q6HRS PO Last administered on 07/23/19at 05:54; Start 07/19/19 at 12:00; Stop 07/23/19 at 10:05; Status DC Amiodarone HCl (Cordarone) 300 mg STK-MED ONCE .ROUTE ; Start 07/18/19 at 16:08; Stop 07/19/19 at 16:08; Status DC Epinephrine HCl (EPINEPHrine SYRINGE) 4 mg STK-MED ONCE .ROUTE ; Start 07/18/19 at 16:08; Stop 07/19/19 at 16:08; Status DC Aspirin (Aspirin Chewable) 81 mg 1X ONCE PO Last administered on 07/19/19at 17:28; Start 07/19/19 at 17:00; Stop 07/19/19 at 17:06; Status DC Aspirin (Aspirin Chewable) 81 mg DAILYWBKFT PO Last administered on 07/23/19at 08:17; Start 07/20/19 at 08:00 Ticagrelor (Brilinta) 90 mg BID PO Last administered on 07/23/19at 08:18; Start 07/20/19 at 09:00 Ticagrelor (Brilinta) 90 mg 1X ONCE PO Last administered on 07/19/19at 17:28; Start 07/19/19 at 17:00; Stop 07/19/19 at 17:07; Status DC Info (Tpn Per Pharmacy) 1 each PRN DAILY PRN MC SEE COMMENTS Last administered on 07/21/19at 11:58; Start 07/19/19 at 17:00; Stop 07/21/19 at 19:42; Status DC Magnesium Sulfate/ Dextrose 100 ml @ 100 mls/hr 1X ONCE IV Last administered on 07/20/19at 09:40; Start 07/20/19 at 09:45; Stop 07/20/19 at 10:44; Status DC Magnesium Sulfate/ Dextrose 100 ml @ 100 mls/hr 1X ONCE IV Last administered on 07/20/19at 11:43; Start 07/20/19 at 09:45; Stop 07/20/19 at 10:44; Status DC Potassium Chloride/Water 100 ml @ 100 mls/hr Q1H IV Last administered on 07/20/19at 15:45; Start 07/20/19 at 09:45; Stop 07/20/19 at 13:44; Status DC Amiodarone HCl 450 mg/Dextrose 259 ml @ 0 mls/hr CONT PRN IV SEE I/O RECORD; Start 07/20/19 at 10:00; Status Cancel Lidocaine HCl (Lidocaine HCl 2% Abboject) 80 mg 1X ONCE IV Last administered on 07/20/19at 10:11; Start 07/20/19 at 10:00; Stop 07/20/19 at 10:03; Status DC Lidocaine HCl/ Dextrose 500 ml @ 0 mls/hr CONT PRN IV SEE I/O RECORD Last adm inistered on 07/20/19at 10:15; Start 07/20/19 at 10:00; Stop 07/21/19 at 15:07; Status DC Furosemide (Lasix) 40 mg DAILY IVP Last administered on 07/22/19at 09:03; Start 07/21/19 at 09:00; Stop 07/22/19 at 12:54; Status DC Sodium Chloride 90 meq/Potassium Chloride 50 meq/ Potassium Phosphate 13.6 mmol/Magnesium Sulfate 10 meq/ Calcium Gluconate 10 meq/ Multivitamins 10 ml/Chromium/ Copper/Manganese/ Seleni/Zn 1 ml/ Total Parenteral Nutrition/Amino Acids/Dextrose/ Fat Emulsion Intravenous 1,512 ml @ 63 mls/hr TPN CONT IV Last administered on 07/20/19at 22:01; Start 07/20/19 at 22:00; Stop 07/21/19 at 21:59; Status DC Sodium Chloride 90 meq/Potassium Chloride 50 meq/ Potassium Phosphate 13.6 mmol/Magnesium Sulfate 10 meq/ Calcium Gluconate 10 meq/ Multivitamins 10 ml/Chromium/ Copper/Manganese/ Seleni/Zn 1 ml/ Total Parenteral Nutrition/Amino Acids/Dextrose/ Fat Emulsion Intravenous 1,512 ml @ 63 mls/hr TPN CONT IV ; Start 07/21/19 at 22:00; Stop 07/22/19 at 09:05; Status DC Potassium Chloride (Klor-Con) 40 meq 1X ONCE PO Last administered on 07/21/19at 15:38; Start 07/21/19 at 14:30; Stop 07/21/19 at 14:33; Status DC Amiodarone HCl (Cordarone) 400 mg DAILY PO Last administered on 07/22/19at 09:02; Start 07/22/19 at 09:00 Amiodarone HCl (Cordarone) 200 mg 1X ONCE PO Last administered on 07/21/19at 15:38; Start 07/21/19 at 15:15; Stop 07/21/19 at 15:16; Status DC Info (Tpn Per Pharmacy) 1 each PRN DAILY PRN MC SEE COMMENTS; Start 07/22/19 at 08:45; Status Cancel Piperacillin Sod/ Tazobactam Sod 3.375 gm/Sodium Chloride 50 ml @ 100 mls/hr Q6HRS IV Last administered on 07/23/19at 05:53; Start 07/22/19 at 12:00 Potassium Chloride (Klor-Con) 40 meq 1X ONCE PO Last administered on 07/22/19at 12:03; Start 07/22/19 at 11:45; Stop 07/22/19 at 11:47; Status DC Desmopressin Acetate (Ddavp) 4 mcg BID SQ Last administered on 07/22/19at 20:55; Start 07/22/19 at 14:00; Stop 07/23/19 at 09:01; Status DC Metoprolol Tartrate (Lopressor) 12.5 mg Q12HR PO ; Start 07/23/19 at 21:00 Active Scripts Active Toprol XL (Metoprolol Succinate) 50 Mg Tab.er.24h 50 Mg PO DAILY Metolazone 2.5 Mg Tablet 2.5 Mg PO QODAY Furosemide 40 Mg Tablet 40 Mg PO [id number] Klor-Con M20 (Potassium Chloride) 20 Meq Tab.er.prt 20 Meq PO BIDWMEALS Amiodarone Hcl 200 Mg Tablet 200 Mg PO DAILY Eliquis (Apixaban) 5 Mg Tablet 5 Mg PO BID Reported Acetaminophen 325 Mg Tablet 325 Mg PO Q6HRS Dicyclomine Hcl 10 Mg Capsule 1 Cap PO PRN TID PRN Nexium Capsule (Esomeprazole Magnesium) 40 Mg Capsule.dr 40 Mg PO DAILYAC Oxycodone Hcl Immed.release (Oxycodone Hcl) 15 Mg Tablet 15 Mg PO PRN Q12HR PRN Alprazolam 1 Mg Tablet 1 Tab PO BID Vitals/I & O Vital Sign - Last 24 Hours 07/22/19 07/22/19 07/22/19 07/22/19 10:27 11:04 11:28 11:57 Pulse 85 71 71 Resp 16 16 B/P (MAP) 139/61 (87) 137/62 (87) 137/62 Pulse Ox 96 96 97 O2 Delivery Ventilator Ventilator Ventilator 07/22/19 07/22/19 07/22/19 07/22/19 11:59 12:00 12:03 12:15 Temp 98.3 98.3 Pulse 67 68 Resp 16 16 B/P (MAP) 107/52 (70) Pulse Ox 97 98 O2 Delivery Ventilator Ventilator Mechanical Ventilator O2 Flow Rate 15.0 07/22/19 07/22/19 07/22/19 07/22/19 12:29 13:11 13:37 14:24 Pulse 59 57 Resp 16 16 16 B/P (MAP) 96/48 (64) 92/46 (61) Pulse Ox 98 96 97 98 O2 Delivery Ventilator Ventilator Ventilator Ventilator O2 Flow Rate 15.0 07/22/19 07/22/19 07/22/19 07/22/19 14:58 15:09 16:34 16:37 Pulse 62 63 Resp 16 16 B/P (MAP) 123/58 (79) 112/52 (72) Pulse Ox 97 99 99 O2 Delivery Ventilator Ventilator Mechanical Ventilator Ventilator 07/22/19 07/22/19 07/22/19 07/22/19 16:52 17:27 18:09 18:14 Pulse 69 69 70 Resp 16 16 B/P (MAP) 137/59 (85) 137/59 109/52 (71) Pulse Ox 98 98 97 O2 Delivery Ventilator Ventilator Ventilator 07/22/19 07/22/19 07/22/19 07/22/19 19:00 19:46 20:00 20:00 Temp 98.3 98.3 Pulse 66 68 Resp 16 16 B/P (MAP) 138/58 (84) 146/60 (88) Pulse Ox 97 98 97 O2 Delivery Ventilator Ventilator Ventilator Mechanical Ventilator 07/22/19 07/22/19 07/22/19 07/22/19 20:00 21:00 22:00 23:00 Pulse 71 64 60 57 Resp 16 16 16 B/P (MAP) 110/52 (71) 98/60 (73) 93/42 (59) Pulse Ox 98 98 99 O2 Delivery Ventilator Ventilator Ventilator 07/22/19 07/23/19 07/23/19 07/23/19 23:42 00:00 00:15 00:15 Temp 98.0 98.0 Pulse 56 54 68 Resp 16 B/P (MAP) 102/45 102/44 (63) Pulse Ox 98 O2 Delivery Ventilator Mechanical Ventilator 07/23/19 07/23/19 07/23/19 07/23/19 00:22 01:00 02:00 03:00 Pulse 50 60 65 Resp 16 16 16 B/P (MAP) 98/44 (62) 126/52 (76) 127/53 (77) Pulse Ox 98 98 98 97 O2 Delivery Ventilator Ventilator Ventilator Ventilator 07/23/19 07/23/19 07/23/19 07/23/19 03:58 04:00 04:00 04:15 Temp 98.5 98.5 Pulse 62 65 Resp 16 B/P (MAP) 118/48 (71) Pulse Ox 97 98 O2 Delivery Ventilator Mechanical Ventilator O2 Flow Rate 15.0 07/23/19 07/23/19 07/23/19 07/23/19 04:21 04:28 04:30 05:00 Pulse 62 64 Resp 16 B/P (MAP) 132/52 (78) Pulse Ox 96 96 97 O2 Delivery Ventilator Ventilator O2 Flow Rate 15.0 07/23/19 07/23/19 07/23/19 07/23/19 05:44 05:54 06:00 07:00 Pulse 63 62 54 Resp 16 16 B/P (MAP) 123/49 120/48 (72) 98/42 (60) Pulse Ox 96 98 99 O2 Delivery Ventilator Ventilator Ventilator 07/23/19 07/23/19 07/23/19 07/23/19 07:33 08:00 08:00 08:00 Temp 98.4 98.4 Pulse 55 56 Resp 16 B/P (MAP) 125/52 (76) Pulse Ox 99 99 O2 Delivery Ventilator Mechanical Ventilator Ventilator 07/23/19 07/23/19 07/23/19 08:18 09:00 09:12 Pulse 55 58 Resp 16 B/P (MAP) 115/48 127/53 (77) Pulse Ox 98 98 O2 Delivery Ventilator Ventilator Intake and Output 07/22/19 07/22/19 07/23/19 15:00 23:00 07:00 Intake Total 250 ml 1199 ml 898 ml Output Total 830 ml 445 ml 390 ml Balance -580 ml 754 ml 508 ml RCIK CAROLINA MD July 23, 2019 10:14
[2019-07-23] MEDS ORDERED: POTASSIUM BICARB 20 MEQ EFFERVESCENT TABLET. PO ONE (10:15)
[2019-07-23] MEDS: DESMOPRESSIN 4 MCG/ML AMPUL. SQ SCH (10:20)
--- NOTE | 2019-07-23 11:32 | PDOC ---
PULMONARY PROGRESS NOTES Subjective Remains on AC control 40% FiO2 5 of PEEP, small ett secretion, more alert, on morphine gtt Vitals Vital Signs Date Time Temp Pulse Resp B/P (MAP) Pulse Ox O2 Delivery O2 Flow Rate FiO2 07/23/19 10:00 56 16 132/54 (80) 98 Ventilator 07/23/19 08:00 98.4 98.4 07/23/19 04:28 15.0 Comments ros unable to obtain sedated on vent General: Lethargic HEENT: Other (nc at perrl nose clear orally intubated neck no lad no thyromegaly) Lungs: Crackles Cardiovascular: S1, S2 Abdomen: Soft, Non-tender, Other (no mass) Extremities: Other (edema) Skin: Warm Labs Laboratory Tests Test 07/21/19 17:58 07/21/19 23:29 07/22/19 05:30 07/22/19 05:32 Glucose (Fingerstick) 129 mg/dL (70-99) 102 mg/dL (70-99) 98 mg/dL (70-99) White Blood Count 4.4 x10^3/uL (4.0-11.0) Red Blood Count 3.82 x10^6/uL (4.30-5.70) Hemoglobin 11.3 g/dL (13.0-17.5) Hematocrit 33.9 % (39.0-53.0) Mean Corpuscular Volume 89 fL (79-100) Mean Corpuscular Hemoglobin 30 pg (25-35) Mean Corpuscular Hemoglobin Concent 33 g/dL (31-37) Red Cell Distribution Width 16.5 % (11.5-14.5) Platelet Count 92 x10^3/uL (140-400) Neutrophils (%) (Auto) 76 % (31-73) Lymphocytes (%) (Auto) 12 % (24-48) Monocytes (%) (Auto) 8 % (0-9) Eosinophils (%) (Auto) 4 % (0-3) Basophils (%) (Auto) 0 % (0-3) Neutrophils # (Auto) 3.3 x10^3/uL (1.8-7.7) Lymphocytes # (Auto) 0.5 x10^3/uL (1.0-4.8) Monocytes # (Auto) 0.3 x10^3/uL (0.0-1.1) Eosinophils # (Auto) 0.2 x10^3/uL (0.0-0.7) Basophils # (Auto) 0.0 x10^3/uL (0.0-0.2) Sodium Level 149 mmol/L (136-145) Potassium Level 3.7 mmol/L (3.5-5.1) Chloride Level 113 mmol/L (98-107) Carbon Dioxide Level 27 mmol/L (21-32) Anion Gap 9 (6-14) Blood Urea Nitrogen 70 mg/dL (8-26) Creatinine 1.9 mg/dL (0.7-1.3) Estimated GFR (Cockcroft-Gault) 34.9 Glucose Level 110 mg/dL (70-99) Calcium Level 7.6 mg/dL (8.5-10.1) Phosphorus Level 2.9 mg/dL (2.6-4.7) Magnesium Level 2.5 mg/dL (1.8-2.4) Test 07/22/19 07:55 07/22/19 12:00 07/22/19 18:18 07/22/19 23:39 O2 Saturation 96 % (92-99) Arterial Blood pH 7.41 (7.35-7.45) Arterial Blood pCO2 at Patient Temp 38 mmHg (35-46) Arterial Blood pO2 at Patient Temp 89 mmHg (65-108) Arterial Blood HCO3 24 mmol/L (21-28) Arterial Blood Base Excess -1 mmol/L (-3-3) FiO2 40 Glucose (Fingerstick) 107 mg/dL (70-99) 101 mg/dL (70-99) 96 mg/dL (70-99) Test 07/23/19 05:40 07/23/19 05:49 07/23/19 08:00 White Blood Count 4.9 x10^3/uL (4.0-11.0) Red Blood Count 3.84 x10^6/uL (4.30-5.70) Hemoglobin 11.3 g/dL (13.0-17.5) Hematocrit 34.2 % (39.0-53.0) Mean Corpuscular Volume 89 fL (79-100) Mean Corpuscular Hemoglobin 30 pg (25-35) Mean Corpuscular Hemoglobin Concent 33 g/dL (31-37) Red Cell Distribution Width 16.7 % (11.5-14.5) Platelet Count 103 x10^3/uL (140-400) Neutrophils (%) (Auto) 77 % (31-73) Lymphocytes (%) (Auto) 11 % (24-48) Monocytes (%) (Auto) 8 % (0-9) Eosinophils (%) (Auto) 3 % (0-3) Basophils (%) (Auto) 1 % (0-3) Neutrophils # (Auto) 3.8 x10^3/uL (1.8-7.7) Lymphocytes # (Auto) 0.5 x10^3/uL (1.0-4.8) Monocytes # (Auto) 0.4 x10^3/uL (0.0-1.1) Eosinophils # (Auto) 0.2 x10^3/uL (0.0-0.7) Basophils # (Auto) 0.0 x10^3/uL (0.0-0.2) Sodium Level 149 mmol/L (136-145) Potassium Level 3.4 mmol/L (3.5-5.1) Chloride Level 113 mmol/L (98-107) Carbon Dioxide Level 27 mmol/L (21-32) Anion Gap 9 (6-14) Blood Urea Nitrogen 63 mg/dL (8-26) Creatinine 1.9 mg/dL (0.7-1.3) Estimated GFR (Cockcroft-Gault) 34.9 Glucose Level 109 mg/dL (70-99) Calcium Level 7.6 mg/dL (8.5-10.1) Magnesium Level 2.0 mg/dL (1.8-2.4) Glucose (Fingerstick) 106 mg/dL (70-99) O2 Saturation 97 % (92-99) Arterial Blood pH 7.43 (7.35-7.45) Arterial Blood pCO2 at Patient Temp 41 mmHg (35-46) Arterial Blood pO2 at Patient Temp 97 mmHg (65-108) Arterial Blood HCO3 27 mmol/L (21-28) Arterial Blood Base Excess 3 mmol/L (-3-3) FiO2 40% Laboratory Tests Test 07/22/19 12:00 07/22/19 18:18 07/22/19 23:39 07/23/19 05:40 Glucose (Fingerstick) 107 mg/dL (70-99) 101 mg/dL (70-99) 96 mg/dL (70-99) White Blood Count 4.9 x10^3/uL (4.0-11.0) Red Blood Count 3.84 x10^6/uL (4.30-5.70) Hemoglobin 11.3 g/dL (13.0-17.5) Hematocrit 34.2 % (39.0-53.0) Mean Corpuscular Volume 89 fL (79-100) Mean Corpuscular Hemoglobin 30 pg (25-35) Mean Corpuscular Hemoglobin Concent 33 g/dL (31-37) Red Cell Distribution Width 16.7 % (11.5-14.5) Platelet Count 103 x10^3/uL (140-400) Neutrophils (%) (Auto) 77 % (31-73) Lymphocytes (%) (Auto) 11 % (24-48) Monocytes (%) (Auto) 8 % (0-9) Eosinophils (%) (Auto) 3 % (0-3) Basophils (%) (Auto) 1 % (0-3) Neutrophils # (Auto) 3.8 x10^3/uL (1.8-7.7) Lymphocytes # (Auto) 0.5 x10^3/uL (1.0-4.8) Monocytes # (Auto) 0.4 x10^3/uL (0.0-1.1) Eosinophils # (Auto) 0.2 x10^3/uL (0.0-0.7) Basophils # (Auto) 0.0 x10^3/uL (0.0-0.2) Sodium Level 149 mmol/L (136-145) Potassium Level 3.4 mmol/L (3.5-5.1) Chloride Level 113 mmol/L (98-107) Carbon Dioxide Level 27 mmol/L (21-32) Anion Gap 9 (6-14) Blood Urea Nitrogen 63 mg/dL (8-26) Creatinine 1.9 mg/dL (0.7-1.3) Estimated GFR (Cockcroft-Gault) 34.9 Glucose Level 109 mg/dL (70-99) Calcium Level 7.6 mg/dL (8.5-10.1) Magnesium Level 2.0 mg/dL (1.8-2.4) Test 07/23/19 05:49 07/23/19 08:00 Glucose (Fingerstick) 106 mg/dL (70-99) O2 Saturation 97 % (92-99) Arterial Blood pH 7.43 (7.35-7.45) Arterial Blood pCO2 at Patient Temp 41 mmHg (35-46) Arterial Blood pO2 at Patient Temp 97 mmHg (65-108) Arterial Blood HCO3 27 mmol/L (21-28) Arterial Blood Base Excess 3 mmol/L (-3-3) FiO2 40% Medications Active Scripts Medications Dose Route/Sig Max Daily Dose Days Date Category Toprol XL (Metoprolol Succinate) 50 Mg Tab.er.24h 50 Mg PO DAILY 06/20/19 Rx Metolazone 2.5 Mg Tablet 2.5 Mg PO QODAY 06/20/19 Rx Furosemide 40 Mg Tablet 40 Mg PO BID92 06/20/19 Rx Klor-Con M20 (Potassium Chloride) 20 Meq Tab.er.prt 20 Meq PO BIDWMEALS 06/20/19 Rx Amiodarone Hcl 200 Mg Tablet 200 Mg PO DAILY 06/20/19 Rx Eliquis (Apixaban) 5 Mg Tablet 5 Mg PO BID 06/20/19 Rx Acetaminophen 325 Mg Tablet 325 Mg PO Q6HRS 06/13/19 Reported Dicyclomine Hcl 10 Mg Capsule 1 Cap PO PRN TID PRN 05/17/19 Reported Nexium Capsule (Esomeprazole Magnesium) 40 Mg Capsule.dr 40 Mg PO DAILYAC 05/17/19 Reported Oxycodone Hcl Immed.release (Oxycodone Hcl) 15 Mg Tablet 15 Mg PO PRN Q12HR PRN 05/17/19 Reported Alprazolam 1 Mg Tablet 1 Tab PO BID 02/05/17 Reported Comments cxr reviewed b lat infilt worse ett ok Impression . IMPRESSION: 1. Acute hypoxemic hypercapnic respiratory failure. 2. Bilateral pulmonary infiltrates, suspect combination of congestive heart failure and pneumonia. 3. Sepsis. 4. SARS-CoV 2, negative 5. Cardiomyopathy, ejection fraction of 15%. 6. Chronic atrial fibrillation. 7. DONTAE/Chronic kidney disease. 8. Acute on chronic systolic heart failure. 9. Hypotension, requiring pressors, suspect secondary to sepsis. 10. Mild elevation in troponin. 11. Paroxysmal atrial fibrillation with recent cardioversion. 12. Status post CODE BLUE secondary to V. tach/coronary artery disease see below Conclusion 1. Normal biventricular filling pressures. 2. Mild pulmonary HTN 3. Normal cardiac output at 5.1 L/min 4. One vessel coronary disease. 5. Successful PCI of the RCA as described above 6. Patient had one episode of SVT with hypotension requiring synchronized cardioversion to SR. Recommendations ASA 81mg daily Ticagrelor 90mg bid Will restart Eliquis at low dose if stable overnight. His hypotension is likely vasoplegic/septic shock, rather than cardiac in origin as evidenced by his normal cardiac output. Cardiac arrest this morning likely sequalae of electrolyte disturbances. Plan . Continue assist control, setting reviewed, decreased sedation, sbt done today, low vt, low sat, not ready for extubation am cxr cxr worse suspect pulm edema, lasix, will monitor, nephro on case may need hd Follow cardiology Case discussed with RN, rt Continue empiric antibiotics Follow cardiology input GI DVT prophylaxis Total cumulative critical care time of 30 minutes. The patient was seen during a COVID-19 pandemic. ANCELMO BERGER MD July 23, 2019 11:32
[2019-07-23] MEDS: PROPOFOL 100 ML IV PRN ×2 (12:47→20:50)
--- NOTE | 2019-07-23 12:52 | PDOC ---
PROGRESS NOTES Subjective Subjective Patient seen and examined Objective Objective Vital Signs Date Time Temp Pulse Resp B/P (MAP) Pulse Ox O2 Delivery O2 Flow Rate FiO2 07/23/19 12:00 Mechanical Ventilator 07/23/19 11:32 98 07/23/19 11:00 54 16 124/50 (74) 07/23/19 08:00 98.4 98.4 07/23/19 04:28 15.0 Intake and Output 07/23/19 07:00 Intake Total 2347 ml Output Total 1665 ml Balance 682 ml IV Total 211 ml Tube Feeding 1736 ml Other 400 ml Output Urine Total 1665 ml Physical Exam Abdomen: Normal bowel sounds Heart: Regular rate General: Other (Intubated) Lungs: Other (Decreased breath sounds) Assessment Assessment Problems Medical Problems: (1) Acute exacerbation of CHF (congestive heart failure) Status: Acute (2) Acute on chronic renal insufficiency Status: Acute (3) Elevated troponin I level Status: Acute (4) Septic shock Status: Acute (5) Suspected COVID-19 virus infection Status: Acute Acute on chronic respiratory failure with a/c CHF, PNA; remains intubated. COVID negative. Followed by pulmonary. Acute on chronic systolic CHF: Fluid balance positive. Initially we were going to restart milrinone yesterday but upon review patient has a history of VT on milrinone and it was not restarted. Continue medications. Renal following. ICM/NICM; EF better at 40-45% CAD; s/p PCI/DARSHAN to the RCA Septic shock; as per ID DONTAE on CKD; cardiorenal syndrome. Followed by renal. Na unchanged. Arrhythmia: noted with PAFIB/RVR and polymorphic VT. Rhythm continues to improve. Comment Review of Relevant I have reviewed the following items juan (where applicable) has been applied. Labs Laboratory Tests Test 07/21/19 17:58 07/21/19 23:29 07/22/19 05:30 07/22/19 05:32 Glucose (Fingerstick) 129 mg/dL (70-99) 102 mg/dL (70-99) 98 mg/dL (70-99) White Blood Count 4.4 x10^3/uL (4.0-11.0) Red Blood Count 3.82 x10^6/uL (4.30-5.70) Hemoglobin 11.3 g/dL (13.0-17.5) Hematocrit 33.9 % (39.0-53.0) Mean Corpuscular Volume 89 fL (79-100) Mean Corpuscular Hemoglobin 30 pg (25-35) Mean Corpuscular Hemoglobin Concent 33 g/dL (31-37) Red Cell Distribution Width 16.5 % (11.5-14.5) Platelet Count 92 x10^3/uL (140-400) Neutrophils (%) (Auto) 76 % (31-73) Lymphocytes (%) (Auto) 12 % (24-48) Monocytes (%) (Auto) 8 % (0-9) Eosinophils (%) (Auto) 4 % (0-3) Basophils (%) (Auto) 0 % (0-3) Neutrophils # (Auto) 3.3 x10^3/uL (1.8-7.7) Lymphocytes # (Auto) 0.5 x10^3/uL (1.0-4.8) Monocytes # (Auto) 0.3 x10^3/uL (0.0-1.1) Eosinophils # (Auto) 0.2 x10^3/uL (0.0-0.7) Basophils # (Auto) 0.0 x10^3/uL (0.0-0.2) Sodium Level 149 mmol/L (136-145) Potassium Level 3.7 mmol/L (3.5-5.1) Chloride Level 113 mmol/L (98-107) Carbon Dioxide Level 27 mmol/L (21-32) Anion Gap 9 (6-14) Blood Urea Nitrogen 70 mg/dL (8-26) Creatinine 1.9 mg/dL (0.7-1.3) Estimated GFR (Cockcroft-Gault) 34.9 Glucose Level 110 mg/dL (70-99) Calcium Level 7.6 mg/dL (8.5-10.1) Phosphorus Level 2.9 mg/dL (2.6-4.7) Magnesium Level 2.5 mg/dL (1.8-2.4) Test 07/22/19 07:55 07/22/19 12:00 07/22/19 18:18 07/22/19 23:39 O2 Saturation 96 % (92-99) Arterial Blood pH 7.41 (7.35-7.45) Arterial Blood pCO2 at Patient Temp 38 mmHg (35-46) Arterial Blood pO2 at Patient Temp 89 mmHg (65-108) Arterial Blood HCO3 24 mmol/L (21-28) Arterial Blood Base Excess -1 mmol/L (-3-3) FiO2 40 Glucose (Fingerstick) 107 mg/dL (70-99) 101 mg/dL (70-99) 96 mg/dL (70-99) Test 07/23/19 05:40 07/23/19 05:49 07/23/19 08:00 White Blood Count 4.9 x10^3/uL (4.0-11.0) Red Blood Count 3.84 x10^6/uL (4.30-5.70) Hemoglobin 11.3 g/dL (13.0-17.5) Hematocrit 34.2 % (39.0-53.0) Mean Corpuscular Volume 89 fL (79-100) Mean Corpuscular Hemoglobin 30 pg (25-35) Mean Corpuscular Hemoglobin Concent 33 g/dL (31-37) Red Cell Distribution Width 16.7 % (11.5-14.5) Platelet Count 103 x10^3/uL (140-400) Neutrophils (%) (Auto) 77 % (31-73) Lymphocytes (%) (Auto) 11 % (24-48) Monocytes (%) (Auto) 8 % (0-9) Eosinophils (%) (Auto) 3 % (0-3) Basophils (%) (Auto) 1 % (0-3) Neutrophils # (Auto) 3.8 x10^3/uL (1.8-7.7) Lymphocytes # (Auto) 0.5 x10^3/uL (1.0-4.8) Monocytes # (Auto) 0.4 x10^3/uL (0.0-1.1) Eosinophils # (Auto) 0.2 x10^3/uL (0.0-0.7) Basophils # (Auto) 0.0 x10^3/uL (0.0-0.2) Sodium Level 149 mmol/L (136-145) Potassium Level 3.4 mmol/L (3.5-5.1) Chloride Level 113 mmol/L (98-107) Carbon Dioxide Level 27 mmol/L (21-32) Anion Gap 9 (6-14) Blood Urea Nitrogen 63 mg/dL (8-26) Creatinine 1.9 mg/dL (0.7-1.3) Estimated GFR (Cockcroft-Gault) 34.9 Glucose Level 109 mg/dL (70-99) Calcium Level 7.6 mg/dL (8.5-10.1) Magnesium Level 2.0 mg/dL (1.8-2.4) Glucose (Fingerstick) 106 mg/dL (70-99) O2 Saturation 97 % (92-99) Arterial Blood pH 7.43 (7.35-7.45) Arterial Blood pCO2 at Patient Temp 41 mmHg (35-46) Arterial Blood pO2 at Patient Temp 97 mmHg (65-108) Arterial Blood HCO3 27 mmol/L (21-28) Arterial Blood Base Excess 3 mmol/L (-3-3) FiO2 40% Laboratory Tests Test 07/22/19 18:18 07/22/19 23:39 07/23/19 05:40 07/23/19 05:49 Glucose (Fingerstick) 101 mg/dL (70-99) 96 mg/dL (70-99) 106 mg/dL (70-99) White Blood Count 4.9 x10^3/uL (4.0-11.0) Red Blood Count 3.84 x10^6/uL (4.30-5.70) Hemoglobin 11.3 g/dL (13.0-17.5) Hematocrit 34.2 % (39.0-53.0) Mean Corpuscular Volume 89 fL (79-100) Mean Corpuscular Hemoglobin 30 pg (25-35) Mean Corpuscular Hemoglobin Concent 33 g/dL (31-37) Red Cell Distribution Width 16.7 % (11.5-14.5) Platelet Count 103 x10^3/uL (140-400) Neutrophils (%) (Auto) 77 % (31-73) Lymphocytes (%) (Auto) 11 % (24-48) Monocytes (%) (Auto) 8 % (0-9) Eosinophils (%) (Auto) 3 % (0-3) Basophils (%) (Auto) 1 % (0-3) Neutrophils # (Auto) 3.8 x10^3/uL (1.8-7.7) Lymphocytes # (Auto) 0.5 x10^3/uL (1.0-4.8) Monocytes # (Auto) 0.4 x10^3/uL (0.0-1.1) Eosinophils # (Auto) 0.2 x10^3/uL (0.0-0.7) Basophils # (Auto) 0.0 x10^3/uL (0.0-0.2) Sodium Level 149 mmol/L (136-145) Potassium Level 3.4 mmol/L (3.5-5.1) Chloride Level 113 mmol/L (98-107) Carbon Dioxide Level 27 mmol/L (21-32) Anion Gap 9 (6-14) Blood Urea Nitrogen 63 mg/dL (8-26) Creatinine 1.9 mg/dL (0.7-1.3) Estimated GFR (Cockcroft-Gault) 34.9 Glucose Level 109 mg/dL (70-99) Calcium Level 7.6 mg/dL (8.5-10.1) Magnesium Level 2.0 mg/dL (1.8-2.4) Test 07/23/19 08:00 O2 Saturation 97 % (92-99) Arterial Blood pH 7.43 (7.35-7.45) Arterial Blood pCO2 at Patient Temp 41 mmHg (35-46) Arterial Blood pO2 at Patient Temp 97 mmHg (65-108) Arterial Blood HCO3 27 mmol/L (21-28) Arterial Blood Base Excess 3 mmol/L (-3-3) FiO2 40% Microbiology 07/17/19 Urine Culture - Final, Complete 07/17/19 Urine Culture Result 1 (BOYD) - Final, Complete 07/17/19 Blood Culture - Final, Complete NO GROWTH AFTER 5 DAYS 07/17/19 Nose/Throat Culture - Final, Complete 07/17/19 - Final, Complete Medications Current Medications Nitroglycerin (Nitrostat) 0.4 mg STK-MED ONCE SL ; Start 07/17/19 at 04:28; Stop 07/17/19 at 04:28; Status DC Nitroglycerin (Nitrostat) 0.4 mg 1X ONCE SL Last administered on 07/17/19at 04:29; Start 07/17/19 at 04:30; Stop 07/17/19 at 04:43; Status DC Nitroglycerin/ Dextrose 250 ml @ 0 mls/hr 1X ONCE IV Last administered on 07/17/19at 04:47; Start 07/17/19 at 04:45; Stop 07/17/19 at 04:46; Status DC Rocuronium [place] (Zemuron) 50 mg 1X ONCE IV Last administered on 07/17/19at 04:44; Start 07/17/19 at 04:45; Stop 07/17/19 at 04:46; Status DC Etomidate (Amidate) 20 mg 1X ONCE IV Last administered on 07/17/19at 04:43; Start 07/17/19 at 04:45; Stop 07/17/19 at 04:46; Status DC Propofol 100 ml @ 0 mls/hr CONT PRN IV SEE PROTOCOL Last administered on 07/17/19at 05:45; Start 07/17/19 at 05:15 Aspirin (Aspirin Rectal Supp) 300 mg 1X ONCE SC Last administered on 07/17/19at 06:01; Start 07/17/19 at 05:45; Stop 07/17/19 at 05:46; Status DC Bumetanide (Bumex) 1 mg 1X ONCE IV Last administered on 07/17/19at 06:00; Start 07/17/19 at 06:00; Stop 07/17/19 at 06:01; Status DC Piperacillin Sod/ Tazobactam Sod 4.5 gm/Sodium Chloride 100 ml @ 200 mls/hr 1X ONCE IV Last administered on 07/17/19at 11:14; Start 07/17/19 at 06:00; Stop 07/17/19 at 06:29; Status DC Vancomycin HCl (Vanco Per Pharmacy) 1 each PRN DAILY PRN MC SEE COMMENTS Last administered on 07/17/19at 06:43; Start 07/17/19 at 06:00; Stop 07/17/19 at 10:41; Status DC Vancomycin HCl 2 gm/Sodium Chloride 500 ml @ 250 mls/hr 1X ONCE IV Last administered on 07/17/19at 06:15; Start 07/17/19 at 06:00; Stop 07/17/19 at 07:59; Status DC Ondansetron HCl (Zofran) 4 mg PRN Q8HRS PRN IV NAUSEA/VOMITING; Start 07/17/19 at 06:00; Stop 07/18/19 at 05:59; Status DC Norepinephrine Bitartrate 8 mg/ Dextrose 258 ml @ 0 mls/hr CONT PRN IV SEE I/O RECORD Last administered on 07/17/19at 21:52; Start 07/17/19 at 06:30; Stop 07/18/19 at 13:40; Status DC Vancomycin HCl 1.75 gm/Sodium Chloride 500 ml @ 250 mls/hr Q24H IV ; Start 07/18/19 at 06:30; Stop 07/17/19 at 10:38; Status DC Vancomycin HCl (Vancomycin Trough Level) 1 each 1X ONCE MC ; Start 07/19/19 at 06:00; Stop 07/19/19 at 06:01; Status Cancel Morphine Sulfate (Morphine Sulfate) 6 mg 1X ONCE IV Last administered on 07/17/19at 07:08; Start 07/17/19 at 07:15; Stop 07/17/19 at 07:16; Status DC Midazolam HCl 100 ml @ 0 mls/hr CONT PRN IV SEE PROTOCOL Last administered on 07/22/19at 23:41; Start 07/17/19 at 07:15 Morphine Sulfate (Morphine Sulfate) 4 mg PRN Q1HR PRN IV SEE COMMENTS.; Start 07/17/19 at 08:00; Stop 07/17/19 at 10:38; Status DC Heparin Sodium (Porcine) (Heparin Sodium) 5,000 unit Q12HR SQ ; Start 07/17/19 at 21:00; Stop 07/17/19 at 10:38; Status DC Amiodarone HCl (Cordarone) 200 mg DAILY PO Last administered on 07/21/19at 09:04; Start 07/18/19 at 09:00; Stop 07/21/19 at 15:07; Status DC Metolazone (Zaroxolyn) 2.5 mg QODAY PO ; Start 07/19/19 at 09:00; Stop 07/18/19 at 10:36; Status DC Potassium Chloride (Klor-Con) 20 meq BIDWMEALS PO Last administered on 07/17/19at 16:34; Start 07/17/19 at 17:00; Stop 07/18/19 at 10:36; Status DC Furosemide (Lasix) 40 mg BID92 IVP Last administered on 07/18/19at 08:03; Start 07/17/19 at 14:00; Stop 07/20/19 at 11:02; Status DC Morphine Sulfate (Morphine Sulfate) 2 mg PRN Q4HRS PRN IV SEE COMMENTS.; Start 07/17/19 at 10:30; Status Cancel Apixaban (Eliquis) 5 mg BID FT Last administered on 07/23/19at 08:17; Start 07/17/19 at 21:00; Stop 07/23/19 at 10:05; Status DC Insulin Human Lispro (HumaLOG) 0-6 UNITS Q6HRS SQ ; Start 07/17/19 at 12:00; Stop 07/23/19 at 10:06; Status DC Lansoprazole (Prevacid) 30 mg DAILY FT Last administered on 07/23/19at 08:16; Start 07/18/19 at 09:00 Acetaminophen (Tylenol) 650 mg PRN Q6HRS PRN FT MILD PAIN / TEMP > 100.3'F; Start 07/17/19 at 10:30 Alprazolam (Xanax) 1 mg BID FT Last administered on 07/23/19at 08:17; Start 07/17/19 at 21:00 Magnesium Hydroxide (Milk Of Magnesia) 2,400 mg PRN DAILY PRN FT CONSTIPATION; Start 07/17/19 at 10:30 Dexmedetomidine HCl 400 mcg/ Sodium Chloride 100 ml @ 0 mls/hr CONT PRN IV PER PROTOCOL Last administered on 07/20/19at 13:31; Start 07/17/19 at 11:00 Sodium Chloride 500 ml @ 500 mls/hr 1X PRN PRN IV SEE COMMENTS; Start 07/17/19 at 11:00; Stop 07/22/19 at 12:54; Status DC Atropine Sulfate (ATROPINE 0.5mg SYRINGE) 0.5 mg PRN Q5MIN PRN IV SEE COMMENTS; Start 07/17/19 at 11:00 Morphine Sulfate (Morphine Sulfate) 2 mg PRN Q1HR PRN IV SEE COMMENTS. Last administered on 07/17/19at 13:37; Start 07/17/19 at 11:15 Morphine Sulfate (Morphine Sulfate) 4 mg PRN Q1HR PRN IV SEE COMMENTS. Last administered on 07/18/19at 13:53; Start 07/17/19 at 11:15 Piperacillin Sod/ Tazobactam Sod 2.25 gm/Sodium Chloride 50 ml @ 100 mls/hr Q6HRS IV Last administered on 07/22/19at 05:46; Start 07/17/19 at 18:00; Stop 07/22/19 at 08:47; Status DC Magnesium Sulfate 50 ml @ 25 mls/hr 1X ONCE IV Last administered on 07/18/19at 08:04; Start 07/18/19 at 07:15; Stop 07/18/19 at 09:14; Status DC Milrinone Lactate/ Dextrose 100 ml @ 0 mls/hr CONT PRN IV SEE I/O RECORD Last administered on 07/20/19at 02:37; Start 07/18/19 at 07:15; Stop 07/23/19 at 10:03; Status DC Linezolid/Dextrose 300 ml @ 300 mls/hr Q12HR IV Last administered on 07/19/19at 21:29; Start 07/18/19 at 09:00; Stop 07/20/19 at 08:25; Status DC Info (Anti-Coagulation Monitoring By Pharmacy) 1 each PRN DAILY PRN MC SEE COMMENTS Last administered on 07/20/19at 14:42; Start 07/18/19 at 08:00 Vecuronium [facility] (Norcuron Bolus) 10 mg STK-MED ONCE IV ; Start 07/18/19 at 09:12; Stop 07/18/19 at 09:12; Status DC Potassium Chloride/Water 100 ml @ 100 mls/hr 1X ONCE IV Last administered on 07/18/19at 10:04; Start 07/18/19 at 09:45; Stop 07/18/19 at 10:44; Status DC Magnesium Sulfate 50 ml @ 25 mls/hr 1X ONCE IV Last administered on 07/18/19at 10:03; Start 07/18/19 at 09:45; Stop 07/18/19 at 11:44; Status DC Norepinephrine Bitartrate 32 mg/ Dextrose 282 ml @ 0 mls/hr CONT PRN IV SEE I/O RECORD Last administered on 07/19/19at 10:39; Start 07/18/19 at 11:15; Stop 07/23/19 at 10:05; Status DC Morphine Sulfate 30 ml @ 0 mls/hr CONT PRN PRN IV PER PROTOCOL Last administered on 07/23/19at 03:58; Start 07/18/19 at 12:45 Lidocaine HCl (Xylocaine-Mpf 1% 2ml Vial) 2 ml STK-MED ONCE .ROUTE ; Start 07/18/19 at 13:05; Stop 07/18/19 at 13:05; Status DC Iodixanol (Visipaque 320) 100 ml STK-MED ONCE .ROUTE ; Start 07/18/19 at 13:05; Stop 07/18/19 at 13:06; Status DC Heparin Sodium/ Sodium Chloride 1,500 ml @ As Directed STK-MED ONCE .ROUTE ; Start 07/18/19 at 13:05; Stop 07/18/19 at 13:06; Status DC Vecuronium [place] [facility] (Norcuron Bolus) 10 mg STK-MED ONCE IV ; Start 07/18/19 at 13:49; Stop 07/18/19 at 13:49; Status DC Vecuronium [place] (Norcuron Bolus) 6 mg PRN Q4HRS PRN IV ANXIETY / AGITATION; Start 07/18/19 at 14:00 Epinephrine HCl 5 mg/Sodium Chloride 255 ml @ 32.926 mls/ hr CONT PRN IV SEE I/O RECORD; Start 07/18/19 at 14:00 Lidocaine HCl (Lidocaine 1% 20ml Vial) 20 ml STK-MED ONCE .ROUTE ; Start 07/18/19 at 14:11; Stop 07/18/19 at 14:11; Status DC Heparin Sodium (Porcine) (Heparin Sodium) 10,000 unit STK-MED ONCE .ROUTE ; Start 07/18/19 at 14:27; Stop 07/18/19 at 14:28; Status DC Heparin Sodium/ Sodium Chloride (HEPARIN for ARTERIAL LINE FLUSH) 1,000 unit 1X ONCE IART Last administered on 07/18/19at 14:45; Start 07/18/19 at 14:45; Stop 07/18/19 at 14:52; Status DC Heparin Sodium/ Sodium Chloride (HEPARIN for ARTERIAL LINE FLUSH) 1,000 unit 1X ONCE IART Last administered on 07/18/19at 14:45; Start 07/18/19 at 14:45; Stop 07/18/19 at 14:52; Status DC Iodixanol (Visipaque 320) 100 ml 1X ONCE IART Last administered on 07/18/19at 14:45; Start 07/18/19 at 14:45; Stop 07/18/19 at 14:52; Status DC Heparin Sodium (Porcine) (Heparin Sodium) 7,000 unit 1X ONCE IV Last administered on 07/18/19at 14:45; Start 07/18/19 at 14:45; Stop 07/18/19 at 14:52; Status DC Lidocaine HCl (Lidocaine 1% 20ml Vial) 20 ml 1X ONCE INJ Last administered on 07/18/19at 14:45; Start 07/18/19 at 14:45; Stop 07/18/19 at 14:52; Status DC Heparin Sodium/ Sodium Chloride 500 ml @ As Directed STK-MED ONCE .ROUTE ; Start 07/18/19 at 15:11; Stop 07/18/19 at 15:11; Status DC Ticagrelor (Brilinta) 180 mg 1X ONCE PO Last administered on 07/18/19at 16:08; Start 07/18/19 at 16:00; Stop 07/18/19 at 16:01; Status DC Digoxin (Lanoxin) 250 mcg 1X ONCE IV ; Start 07/19/19 at 06:15; Stop 07/19/19 at 06:16; Status Cancel Digoxin (Lanoxin) 250 mcg 1X ONCE IV Last administered on 07/19/19at 05:15; Start 07/19/19 at 05:15; Stop 07/19/19 at 06:11; Status DC Digoxin (Lanoxin) 250 mcg 1X ONCE IV Last administered on 07/19/19at 08:48; Start 07/19/19 at 09:00; Stop 07/19/19 at 09:01; Status DC Digoxin (Lanoxin) 250 mcg 1X ONCE IV Last administered on 07/19/19at 04:15; Start 07/19/19 at 04:10; Stop 07/19/19 at 06:15; Status DC Vecuronium [facility] (Norcuron Bolus) 20 mg STK-MED ONCE IV ; Start 07/18/19 at 12:00; Stop 07/19/19 at 08:48; Status DC Potassium Chloride/Water 100 ml @ 100 mls/hr 1X ONCE IV Last administered on 07/19/19at 12:13; Start 07/19/19 at 11:45; Stop 07/19/19 at 12:44; Status DC Amiodarone HCl 150 mg/Dextrose 103 ml @ 618 mls/hr 1X ONCE IV Last administered on 07/19/19at 12:15; Start 07/19/19 at 12:00; Stop 07/19/19 at 12:09; Status DC Metoprolol Tartrate (Lopressor) 12.5 mg Q6HRS PO Last administered on 07/23/19at 05:54; Start 07/19/19 at 12:00; Stop 07/23/19 at 10:05; Status DC Amiodarone HCl (Cordarone) 300 mg STK-MED ONCE .ROUTE ; Start 07/18/19 at 16:08; Stop 07/19/19 at 16:08; Status DC Epinephrine HCl (EPINEPHrine SYRINGE) 4 mg STK-MED ONCE .ROUTE ; Start 07/18/19 at 16:08; Stop 07/19/19 at 16:08; Status DC Aspirin (Aspirin Chewable) 81 mg 1X ONCE PO Last administered on 07/19/19at 17:28; Start 07/19/19 at 17:00; Stop 07/19/19 at 17:06; Status DC Aspirin (Aspirin Chewable) 81 mg DAILYWBKFT PO Last administered on 07/23/19at 08:17; Start 07/20/19 at 08:00 Ticagrelor (Brilinta) 90 mg BID PO Last administered on 07/23/19at 08:18; Start 07/20/19 at 09:00 Ticagrelor (Brilinta) 90 mg 1X ONCE PO Last administered on 07/19/19at 17:28; Start 07/19/19 at 17:00; Stop 07/19/19 at 17:07; Status DC Info (Tpn Per Pharmacy) 1 each PRN DAILY PRN MC SEE COMMENTS Last administered on 07/21/19at 11:58; Start 07/19/19 at 17:00; Stop 07/21/19 at 19:42; Status DC Magnesium Sulfate/ Dextrose 100 ml @ 100 mls/hr 1X ONCE IV Last administered on 07/20/19at 09:40; Start 07/20/19 at 09:45; Stop 07/20/19 at 10:44; Status DC Magnesium Sulfate/ Dextrose 100 ml @ 100 mls/hr 1X ONCE IV Last administered on 07/20/19at 11:43; Start 07/20/19 at 09:45; Stop 07/20/19 at 10:44; Status DC Potassium Chloride/Water 100 ml @ 100 mls/hr Q1H IV Last administered on 07/20/19at 15:45; Start 07/20/19 at 09:45; Stop 07/20/19 at 13:44; Status DC Amiodarone HCl 450 mg/Dextrose 259 ml @ 0 mls/hr CONT PRN IV SEE I/O RECORD; Start 07/20/19 at 10:00; Status Cancel Lidocaine HCl (Lidocaine HCl 2% Abboject) 80 mg 1X ONCE IV Last administered on 07/20/19at 10:11; Start 07/20/19 at 10:00; Stop 07/20/19 at 10:03; Status DC Lidocaine HCl/ Dextrose 500 ml @ 0 mls/hr CONT PRN IV SEE I/O RECORD Last administered on 07/20/19at 10:15; Start 07/20/19 at 10:00; Stop 07/21/19 at 15:07; Status DC Furosemide (Lasix) 40 mg DAILY IVP Last administered on 07/22/19at 09:03; Start 07/21/19 at 09:00; Stop 07/22/19 at 12:54; Status DC Sodium Chloride 90 meq/Potassium Chloride 50 meq/ Potassium Phosphate 13.6 mmol/Magnesium Sulfate 10 meq/ Calcium Gluconate 10 meq/ Multivitamins 10 ml/Chromium/ Copper/Manganese/ Seleni/Zn 1 ml/ Total Parenteral Nutrition/Amino Acids/Dextrose/ Fat Emulsion Intravenous 1,512 ml @ 63 mls/hr TPN CONT IV Last administered on 07/20/19at 22:01; Start 07/20/19 at 22:00; Stop 07/21/19 at 21:59; Status DC Sodium Chloride 90 meq/Potassium Chloride 50 meq/ Potassium Phosphate 13.6 mmol/Magnesium Sulfate 10 meq/ Calcium Gluconate 10 meq/ Multivitamins 10 ml/Chromium/ Copper/Manganese/ Seleni/Zn 1 ml/ Total Parenteral Nutrition/Amino Acids/Dextrose/ Fat Emulsion Intravenous 1,512 ml @ 63 mls/hr TPN CONT IV ; Start 07/21/19 at 22:00; Stop 07/22/19 at 09:05; Status DC Potassium Chloride (Klor-Con) 40 meq 1X ONCE PO Last administered on 07/21/19at 15:38; Start 07/21/19 at 14:30; Stop 07/21/19 at 14:33; Status DC Amiodarone HCl (Cordarone) 400 mg DAILY PO Last administered on 07/22/19at 09:02; Start 07/22/19 at 09:00 Amiodarone HCl (Cordarone) 200 mg 1X ONCE PO Last administered on 07/21/19at 15:38; Start 07/21/19 at 15:15; Stop 07/21/19 at 15:16; Status DC Info (Tpn Per Pharmacy) 1 each PRN DAILY PRN MC SEE COMMENTS; Start 07/22/19 at 08:45; Status Cancel Piperacillin Sod/ Tazobactam Sod 3.375 gm/Sodium Chloride 50 ml @ 100 mls/hr Q6HRS IV Last administered on 07/23/19at 10:41; Start 07/22/19 at 12:00 Potassium Chloride (Klor-Con) 40 meq 1X ONCE PO Last administered on 07/22/19at 12:03; Start 07/22/19 at 11:45; Stop 07/22/19 at 11:47; Status DC Desmopressin Acetate (Ddavp) 4 mcg BID SQ Last administered on 07/23/19at 10:20; Start 07/22/19 at 14:00; Stop 07/23/19 at 09:01; Status DC Metoprolol Tartrate (Lopressor) 12.5 mg Q12HR PO ; Start 07/23/19 at 21:00 Potassium Bicarbonate (Potassium Effervescent Tablet) 40 meq 1X ONCE PO ; Start 07/23/19 at 10:15; Stop 07/23/19 at 10:16; Status DC Active Scripts Active Toprol XL (Metoprolol Succinate) 50 Mg Tab.er.24h 50 Mg PO DAILY Metolazone 2.5 Mg Tablet 2.5 Mg PO QODAY Furosemide 40 Mg Tablet 40 Mg PO [id number] Klor-Con M20 (Potassium Chloride) 20 Meq Tab.er.prt 20 Meq PO BIDWMEALS Amiodarone Hcl 200 Mg Tablet 200 Mg PO DAILY Eliquis (Apixaban) 5 Mg Tablet 5 Mg PO BID Reported Acetaminophen 325 Mg Tablet 325 Mg PO Q6HRS Dicyclomine Hcl 10 Mg Capsule 1 Cap PO PRN TID PRN Nexium Capsule (Esomeprazole Magnesium) 40 Mg Capsule.dr 40 Mg PO DAILYAC Oxycodone Hcl Immed.release (Oxycodone Hcl) 15 Mg Tablet 15 Mg PO PRN Q12HR PRN Alprazolam 1 Mg Tablet 1 Tab PO BID Vitals/I & O Vital Sign - Last 24 Hours 07/22/19 07/22/19 07/22/19 07/22/19 13:11 13:37 14:24 14:58 Pulse 59 57 Resp 16 16 B/P (MAP) 96/48 (64) 92/46 (61) Pulse Ox 96 97 98 97 O2 Delivery Ventilator Ventilator Ventilator Ventilator 07/22/19 07/22/19 07/22/19 07/22/19 15:09 16:34 16:37 16:52 Pulse 62 63 Resp 16 16 B/P (MAP) 123/58 (79) 112/52 (72) Pulse Ox 99 99 98 O2 Delivery Ventilator Mechanical Ventilator Ventilator Ventilator 07/22/19 07/22/19 07/22/19 07/22/19 17:27 18:09 18:14 19:00 Pulse 69 69 70 66 Resp 16 16 16 B/P (MAP) 137/59 (85) 137/59 109/52 (71) 138/58 (84) Pulse Ox 98 97 97 O2 Delivery Ventilator Ventilator Ventilator 07/22/19 07/22/19 07/22/19 07/22/19 19:46 20:00 20:00 20:00 Temp 98.3 98.3 Pulse 68 71 Resp 16 B/P (MAP) 146/60 (88) Pulse Ox 98 97 O2 Delivery Ventilator Ventilator Mechanical Ventilator 07/22/19 07/22/19 07/22/19 07/22/19 21:00 22:00 23:00 23:42 Pulse 64 60 57 56 Resp 16 16 16 B/P (MAP) 110/52 (71) 98/60 (73) 93/42 (59) 102/45 Pulse Ox 98 98 99 O2 Delivery Ventilator Ventilator Ventilator 07/23/19 07/23/19 07/23/19 07/23/19 00:00 00:15 00:15 00:22 Temp 98.0 98.0 Pulse 54 68 Resp 16 B/P (MAP) 102/44 (63) Pulse Ox 98 98 O2 Delivery Ventilator Mechanical Ventilator Ventilator 07/23/19 07/23/19 07/23/19 07/23/19 01:00 02:00 03:00 03:58 Pulse 50 60 65 Resp 16 16 16 B/P (MAP) 98/44 (62) 126/52 (76) 127/53 (77) Pulse Ox 98 98 97 97 O2 Delivery Ventilator Ventilator Ventilator O2 Flow Rate 15.0 07/23/19 07/23/19 07/23/19 07/23/19 04:00 04:00 04:15 04:21 Temp 98.5 98.5 Pulse 62 65 Resp 16 B/P (MAP) 118/48 (71) Pulse Ox 98 96 O2 Delivery Ventilator Mechanical Ventilator Ventilator 07/23/19 07/23/19 07/23/19 07/23/19 04:28 04:30 05:00 05:44 Pulse 62 64 Resp 16 B/P (MAP) 132/52 (78) Pulse Ox 96 97 96 O2 Delivery Ventilator Ventilator O2 Flow Rate 15.0 07/23/19 07/23/19 07/23/19 07/23/19 05:54 06:00 07:00 07:33 Pulse 63 62 54 Resp 16 16 B/P (MAP) 123/49 120/48 (72) 98/42 (60) Pulse Ox 98 99 99 O2 Delivery Ventilator Ventilator Ventilator 07/23/19 07/23/19 07/23/19 07/23/19 08:00 08:00 08:00 08:18 Temp 98.4 98.4 Pulse 55 56 55 Resp 16 B/P (MAP) 125/52 (76) 115/48 Pulse Ox 99 O2 Delivery Mechanical Ventilator Ventilator 07/23/19 07/23/19 07/23/19 07/23/19 09:00 09:12 10:00 11:00 Pulse 58 56 54 Resp 16 16 16 B/P (MAP) 127/53 (77) 132/54 (80) 124/50 (74) Pulse Ox 98 98 98 97 O2 Delivery Ventilator Ventilator Ventilator Ventilator 07/23/19 07/23/19 11:32 12:00 Pulse Ox 98 O2 Delivery Ventilator Mechanical Ventilator Intake and Output 07/22/19 07/22/19 07/23/19 15:00 23:00 07:00 Intake Total 250 ml 1199 ml 898 ml Output Total 830 ml 445 ml 390 ml Balance -580 ml 754 ml 508 ml JONY OLSON MD July 23, 2019 12:52
--- NOTE | 2019-07-23 13:08 | PDOC ---
SUBJECTIVE ROS Follow-up for acute kidney injury/ATN Patient remains on the vent at this time. He has developed hematuria and anticoagulation is been weaned. Tube feeds on hold. Unable to start milrinone yesterday OBJECTIVE Vital Signs Vital Signs Date Time Temp Pulse Resp B/P (MAP) Pulse Ox O2 Delivery O2 Flow Rate FiO2 07/23/19 12:00 Mechanical Ventilator 07/23/19 11:32 98 07/23/19 11:00 54 16 124/50 (74) 07/23/19 08:00 98.4 98.4 07/23/19 04:28 15.0 I & 0 Intake and Output 07/23/19 07:00 Intake Total 2347 ml Output Total 1665 ml Balance 682 ml IV Total 211 ml Tube Feeding 1736 ml Other 400 ml Output Urine Total 1665 ml PHYSICAL EXAM Physical Exam GEN: Sedated intubated on the vent EYES: Sclera anicteric, Conjunctiva Normal EN: No EN Drainage, Mucous Membranes moist, orally intubated NECK: No visible JVD, or JVP, Supple, no thyromegaly, thick neck CVS: S1S2, no obvious murmur, No Gallop, No Rub, +1 edema bilaterally RESP: Rare basal Rales, no rhonchi, no Acc. Muscle Use GI: BS + ve, NO Bruit, Non Tender, Non Distended, obese abdomen : No CVA tenderness, no suprapubic Tenderness DIAGNOSIS/ASSESSMENT Assessment & Plan DONTAE/ATN especially postcode/possible contrast nephropathy. current fluid and E- lyte status does not necessitate emergent need for dialysis. Will re-evaluate for dialysis in the am. Creatinine has been stable in the twos of late. Continue to watch as long as fluid balance and respiratory status is acceptable. Underlying chronic renal insufficiency cannot be ruled out here after HyperNatremia- increase free water. Start PPN with Lasix Nutrition: Start PPN with Lasix Low potassium: Replacement protocol as ordered Acute on chronic respiratory failure with a/c CHF/Pneumonia ; intubated on the vent currently Acute on chronic systolic CHF- per Cardiology Severe cardiomyopathy; LVEF reportedly improved per cardiology note. COMMENT/RELEVANT DATA Meds Current Medications Medications (Trade) Dose Ordered Sig/Chance Start Time Stop Time Status Last Admin Dose Admin Acetaminophen (Tylenol) 650 mg PRN Q6HRS PRN 5/18/20 10:30 Alprazolam (Xanax) 1 mg BID 07/17/19 21:00 07/23/19 08:17 1 MG Amiodarone HCl (Cordarone) 200 mg 1X ONCE 07/21/19 15:15 07/21/19 15:16 DC 07/21/19 15:38 200 MG Amiodarone HCl 150 mg/Dextrose 103 ml @ 618 mls/hr 1X ONCE 07/19/19 12:00 07/19/19 12:09 DC 07/19/19 12:15 618 MLS/HR Amiodarone HCl 450 mg/Dextrose 259 ml @ 0 mls/hr CONT PRN 07/20/19 10:00 Cancel Apixaban (Eliquis) 5 mg BID 07/17/19 21:00 07/23/19 10:05 DC 07/23/19 08:17 5 MG Aspirin (Aspirin Chewable) 81 mg DAILYWBKFT 07/20/19 08:00 07/23/19 08:17 81 MG Aspirin (Aspirin Rectal Supp) 300 mg 1X ONCE 07/17/19 05:45 07/17/19 05:46 DC 07/17/19 06:01 300 MG Atropine Sulfate (ATROPINE 0.5mg SYRINGE) 0.5 mg PRN Q5MIN PRN 07/17/19 11:00 Bumetanide (Bumex) 1 mg 1X ONCE 07/17/19 06:00 07/17/19 06:01 DC 07/17/19 06:00 1 MG Desmopressin Acetate (Ddavp) 4 mcg BID 07/22/19 14:00 07/23/19 09:01 DC 07/23/19 10:20 4 MCG Dexmedetomidine HCl 400 mcg/ Sodium Chloride 100 ml @ 0 mls/hr CONT PRN 07/17/19 11:00 07/20/19 13:31 8.5 MLS/HR Digoxin (Lanoxin) 250 mcg 1X ONCE 07/19/19 04:10 07/19/19 06:15 DC 07/19/19 04:15 250 MCG Epinephrine HCl (EPINEPHrine SYRINGE) 4 mg STK-MED ONCE 07/18/19 16:08 07/19/19 16:08 DC Epinephrine HCl 5 mg/Sodium Chloride 255 ml @ 32.926 mls/ hr CONT PRN 07/18/19 14:00 Etomidate (Amidate) 20 mg 1X ONCE 07/17/19 04:45 07/17/19 04:46 DC 07/17/19 04:43 20 MG Furosemide (Lasix) 40 mg DAILY 07/21/19 09:00 07/22/19 12:54 DC 07/22/19 09:03 40 MG Heparin Sodium (Porcine) (Heparin Sodium) 7,000 unit 1X ONCE 07/18/19 14:45 07/18/19 14:52 DC 07/18/19 14:45 7,000 UNIT Heparin Sodium/ Sodium Chloride 500 ml @ As Directed STK-MED ONCE 07/18/19 15:11 07/18/19 15:11 DC Heparin Sodium/ Sodium Chloride (HEPARIN for ARTERIAL LINE FLUSH) 1,000 unit 1X ONCE 07/18/19 14:45 07/18/19 14:52 DC 07/18/19 14:45 1,000 UNIT Info (Anti-Coagulation Monitoring By Pharmacy) 1 each PRN DAILY PRN 07/18/19 08:00 07/20/19 14:42 1 EACH Info (Tpn Per Pharmacy) 1 each PRN DAILY PRN 07/22/19 08:45 Cancel Insulin Human Lispro (HumaLOG) 0-6 UNITS Q6HRS 07/17/19 12:00 07/23/19 10:06 DC Iodixanol (Visipaque 320) 100 ml 1X ONCE 07/18/19 14:45 07/18/19 14:52 DC 07/18/19 14:45 104 ML Lansoprazole (Prevacid) 30 mg DAILY 07/18/19 09:00 07/23/19 08:16 30 MG Lidocaine HCl (Lidocaine 1% 20ml Vial) 20 ml 1X ONCE 07/18/19 14:45 07/18/19 14:52 DC 07/18/19 14:45 10 ML Lidocaine HCl (Lidocaine HCl 2% Abboject) 80 mg 1X ONCE 07/20/19 10:00 07/20/19 10:03 DC 07/20/19 10:11 80 MG Lidocaine HCl (Xylocaine-Mpf 1% 2ml Vial) 2 ml STK-MED ONCE 07/18/19 13:05 07/18/19 13:05 DC Lidocaine HCl/ Dextrose 500 ml @ 0 mls/hr CONT PRN 07/20/19 10:00 07/21/19 15:07 DC 07/20/19 10:15 15 MLS/HR Linezolid/Dextrose 300 ml @ 300 mls/hr Q12HR 07/18/19 09:00 07/20/19 08:25 DC 07/19/19 21:29 300 MLS/HR Magnesium Hydroxide (Milk Of Magnesia) 2,400 mg PRN DAILY PRN 07/17/19 10:30 Magnesium Sulfate 50 ml @ 25 mls/hr 1X ONCE 07/18/19 09:45 07/18/19 11:44 DC 07/18/19 10:03 25 MLS/HR Magnesium Sulfate/ Dextrose 100 ml @ 100 mls/hr 1X ONCE 07/20/19 09:45 07/20/19 10:44 DC 07/20/19 11:43 100 MLS/HR Metolazone (Zaroxolyn) 2.5 mg QODAY 07/19/19 09:00 07/18/19 10:36 DC Metoprolol Tartrate (Lopressor) 12.5 mg Q12HR 07/23/19 21:00 Midazolam HCl 100 ml @ 0 mls/hr CONT PRN 07/17/19 07:15 07/22/19 23:41 5 MLS/HR Milrinone Lactate/ Dextrose 100 ml @ 0 mls/hr CONT PRN 07/18/19 07:15 07/23/19 10:03 DC 07/20/19 02:37 4.2 MLS/HR Morphine Sulfate 30 ml @ 0 mls/hr CONT PRN PRN 07/18/19 12:45 07/23/19 03:58 2 MLS/HR Morphine Sulfate (Morphine Sulfate) 4 mg PRN Q1HR PRN 07/17/19 11:15 07/18/19 13:53 4 MG Nitroglycerin (Nitrostat) 0.4 mg 1X ONCE 07/17/19 04:30 07/17/19 04:43 DC 07/17/19 04:29 0.4 MG Nitroglycerin/ Dextrose 250 ml @ 0 mls/hr 1X ONCE 07/17/19 04:45 07/17/19 04:46 DC 07/17/19 04:47 1.5 MLS/HR Norepinephrine Bitartrate 32 mg/ Dextrose 282 ml @ 0 mls/hr CONT PRN 07/18/19 11:15 07/23/19 10:05 DC 07/19/19 10:39 9 MLS/HR Norepinephrine Bitartrate 8 mg/ Dextrose 258 ml @ 0 mls/hr CONT PRN 07/17/19 06:30 07/18/19 13:40 DC 07/17/19 21:52 11 MLS/HR Ondansetron HCl (Zofran) 4 mg PRN Q8HRS PRN 07/17/19 06:00 07/18/19 05:59 DC Piperacillin Sod/ Tazobactam Sod 2.25 gm/Sodium Chloride 50 ml @ 100 mls/hr Q6HRS 07/17/19 18:00 07/22/19 08:47 DC 07/22/19 05:46 100 MLS/HR Piperacillin Sod/ Tazobactam Sod 3.375 gm/Sodium Chloride 50 ml @ 100 mls/hr Q6HRS 07/22/19 12:00 07/23/19 10:41 100 MLS/HR Piperacillin Sod/ Tazobactam Sod 4.5 gm/Sodium Chloride 100 ml @ 200 mls/hr 1X ONCE 07/17/19 06:00 07/17/19 06:29 DC 07/17/19 11:14 200 MLS/HR Potassium Bicarbonate (Potassium Effervescent Tablet) 40 meq 1X ONCE 07/23/19 10:15 07/23/19 10:16 DC 07/23/19 12:49 40 MEQ Potassium Chloride/Water 100 ml @ 100 mls/hr Q1H 07/20/19 09:45 07/20/19 13:44 DC 07/20/19 15:45 100 MLS/HR Potassium Chloride (Klor-Con) 40 meq 1X ONCE 07/22/19 11:45 07/22/19 11:47 DC 07/22/19 12:03 40 MEQ Propofol 100 ml @ 0 mls/hr CONT PRN 07/17/19 05:15 07/23/19 12:47 10 MLS/HR Rocuronium [place] (Zemuron) 50 mg 1X ONCE 07/17/19 04:45 07/17/19 04:46 DC 07/17/19 04:44 50 MG Sodium Chloride 90 meq/Potassium Chloride 50 meq/ Potassium Phosphate 13.6 mmol/Magnesium Sulfate 10 meq/ Calcium Gluconate 10 meq/ Multivitamins 10 ml/Chromium/ Copper/Manganese/ Seleni/Zn 1 ml/ Total Parenteral Nutrition/Amino Acids/Dextrose/ Fat Emulsion Intravenous 1,512 ml @ 63 mls/hr TPN CONT 07/21/19 22:00 07/22/19 09:05 DC Ticagrelor (Brilinta) 90 mg 1X ONCE 07/19/19 17:00 07/19/19 17:07 DC 07/19/19 17:28 90 MG Vancomycin HCl (Vanco Per Pharmacy) 1 each PRN DAILY PRN 07/17/19 06:00 07/17/19 10:41 DC 07/17/19 06:43 1 EACH Vancomycin HCl (Vancomycin Trough Level) 1 each 1X ONCE 07/19/19 06:00 07/19/19 06:01 Cancel Vancomycin HCl 1.75 gm/Sodium Chloride 500 ml @ 250 mls/hr Q24H 07/18/19 06:30 07/17/19 10:38 DC Vancomycin HCl 2 gm/Sodium Chloride 500 ml @ 250 mls/hr 1X ONCE 07/17/19 06:00 07/17/19 07:59 DC 07/17/19 06:15 250 MLS/HR Vecuronium [place] (Norcuron Bolus) 20 mg STK-MED ONCE 07/18/19 12:00 07/19/19 08:48 DC Lab Laboratory Tests Test 07/22/19 18:18 07/22/19 23:39 07/23/19 05:40 07/23/19 05:49 Glucose (Fingerstick) 101 mg/dL (70-99) 96 mg/dL (70-99) 106 mg/dL (70-99) White Blood Count 4.9 x10^3/uL (4.0-11.0) Red Blood Count 3.84 x10^6/uL (4.30-5.70) Hemoglobin 11.3 g/dL (13.0-17.5) Hematocrit 34.2 % (39.0-53.0) Mean Corpuscular Volume 89 fL (79-100) Mean Corpuscular Hemoglobin 30 pg (25-35) Mean Corpuscular Hemoglobin Concent 33 g/dL (31-37) Red Cell Distribution Width 16.7 % (11.5-14.5) Platelet Count 103 x10^3/uL (140-400) Neutrophils (%) (Auto) 77 % (31-73) Lymphocytes (%) (Auto) 11 % (24-48) Monocytes (%) (Auto) 8 % (0-9) Eosinophils (%) (Auto) 3 % (0-3) Basophils (%) (Auto) 1 % (0-3) Neutrophils # (Auto) 3.8 x10^3/uL (1.8-7.7) Lymphocytes # (Auto) 0.5 x10^3/uL (1.0-4.8) Monocytes # (Auto) 0.4 x10^3/uL (0.0-1.1) Eosinophils # (Auto) 0.2 x10^3/uL (0.0-0.7) Basophils # (Auto) 0.0 x10^3/uL (0.0-0.2) Sodium Level 149 mmol/L (136-145) Potassium Level 3.4 mmol/L (3.5-5.1) Chloride Level 113 mmol/L (98-107) Carbon Dioxide Level 27 mmol/L (21-32) Anion Gap 9 (6-14) Blood Urea Nitrogen 63 mg/dL (8-26) Creatinine 1.9 mg/dL (0.7-1.3) Estimated GFR (Cockcroft-Gault) 34.9 Glucose Level 109 mg/dL (70-99) Calcium Level 7.6 mg/dL (8.5-10.1) Magnesium Level 2.0 mg/dL (1.8-2.4) Test 07/23/19 08:00 O2 Saturation 97 % (92-99) Arterial Blood pH 7.43 (7.35-7.45) Arterial Blood pCO2 at Patient Temp 41 mmHg (35-46) Arterial Blood pO2 at Patient Temp 97 mmHg (65-108) Arterial Blood HCO3 27 mmol/L (21-28) Arterial Blood Base Excess 3 mmol/L (-3-3) FiO2 40% Results All relevant outside records, renal labs, imaging studies, telemetry/EKG's were reviewed. Other Chest x-ray from 07/22/2019 IMPRESSION: * Interstitial and alveolar opacities throughout the bilateral lungs appear increased from prior and could be from edema or infiltrate. Suspect pleural effusion as well. * Lines and tubes as above. KAROLINA DORSEY MD July 23, 2019 13:08
[2019-07-23] MEDS ORDERED: AMINO AC 3%/ELECTROLYTE/GLYCER 1,000 ML IV SCH (13:15)
[2019-07-23] MEDS ORDERED: MAGNESIUM SULFATE 2GM 50 ML IV PRN (13:15)
[2019-07-23] MEDS ORDERED: POTASSIUM CHLORIDE 20MEQ 100 ML IV PRN (13:15)
[2019-07-23] MEDS: FUROSEMIDE 40 MG/4 ML VIAL. IVP SCH (13:41)
[2019-07-23] MEDS ORDERED: IV DEXTROSE 5% 1,000 ML IV SCH (17:00)
[2019-07-24] VITALS (26 sets, daily range): BP systolic 96–212; BP diastolic 41–76
[2019-07-24] MEDS: PIPERACILLIN/TAZOBACTAM 3.375 GM in IV NORMAL SALINE 50ML 50 ML IV SCH ×5 (00:03→23:39)
[2019-07-24] MEDS: PROPOFOL 100 ML IV PRN ×3 (00:54→18:33)
--- NOTE | 2019-07-24 05:33 | NUR ---
Pt SPO2 dropped into the low 80s this shift. FiO2 was turned up to 100% at this time, RT notified. FiO2 able to be titrated down and is currently at 50%. All other ventilator settings are the same. Pt SPO2 is currently 96% on these current settings. Will pass on and continue to monitor.
--- NOTE | 2019-07-24 06:43 | RAD ---
EXAM: CHEST ONE VIEW. HISTORY: Intubated, decreased breath sounds on the left. COMPARISON: 07/22/2019. FINDINGS: A frontal view of the chest is obtained. An endotracheal tube has its tip 2.5 cm above the sabi. A left internal jugular central venous catheter has its tip in the superior cavoatrial junction. A nasogastric tube has its tip in the stomach. Anterior cervical discectomy and fusion changes are noted. The inspiration is small. There are small pleural effusions on the left greater than right. Interstitial opacities are consistent with atelectasis and mild pulmonary edema. There is no pneumothorax. The heart is mildly enlarged. IMPRESSION: 1. Small inspiration with decreased aeration. Small bilateral pleural effusions. Mild pulmonary edema. Electronically signed by: Jamel Chino MD (07/24/2019 6:40 AM) [facility]
[2019-07-24 06:48] LABS: CALCIUM 7.7 mg/dL (8.5-10.1); CREATININE 1.9 mg/dL (0.7-1.3); GFR 34.9; POTASSIUM 3.3 mmol/L (3.5-5.1)
[2019-07-24 07:04] LABS: BASO % 1 % (0-3); EOS # 0.2 x10^3/uL (0.0-0.7); EOS % 4 % (0-3); HEMATOCRIT 35.1 % (39.0-53.0); HEMOGLOBIN 11.6 g/dL (13.0-17.5); LYMPH # 0.6 x10^3/uL (1.0-4.8); LYMPH % 12 % (24-48); MEAN CORPUSCULAR HEMOGLOBIN 29 pg (25-35); MEAN CORPUSCULAR HGB CONC 33 g/dL (31-37); MEAN CORPUSCULAR VOLUME 89 fL (79-100); MONO # 0.5 x10^3/uL (0.0-1.1); MONO % 9 % (0-9); NEUT # 3.9 x10^3/uL (1.8-7.7); NEUT % 74 % (31-73); PLATELET COUNT 127 x10^3/uL (140-400); RED BLOOD COUNT 3.93 x10^6/uL (4.30-5.70); RED CELL DISTRIBUTION WIDTH 16.5 % (11.5-14.5); WHITE BLOOD COUNT 5.2 x10^3/uL (4.0-11.0)
[2019-07-24] MEDS ORDERED: NITROGLYCERIN PREMIX 250 ML IV PRN (08:00)
--- NOTE | 2019-07-24 08:01 | PDOC ---
Infectious Disease Note Subjective: Subjective Awake and calm Denies pain Remains intubated/vent. No fevers last 48 hours Tube feedings Vital Signs: Vital Signs Vital Signs Date Time Temp Pulse Resp B/P (MAP) Pulse Ox O2 Delivery O2 Flow Rate FiO2 07/24/19 07:29 95 Ventilator 07/24/19 07:00 76 23 155/64 (94) 07/24/19 04:00 97.7 97.7 Physical Exam: PHYSICAL EXAM GENERAL: Awake, orally intubated, calm, + mitts HEENT: HANY. ETT and OG tube in place. NECK: Supple. LUNGS: Clear anteriorly HEART: S1, S2. regular ABDOMEN: Soft, bowel sounds present, no guarding : Antunez in place EXTREMITIES: Trace edema, no cyanosis. DERMATOLOGIC: Warm, dry. No generalized rash. NEUROLOGIC: Alert, responsive LIJ without signs of complications Medications: Inpatient Meds: Current Medications Medications (Trade) Dose Ordered Sig/Chance Start Time Stop Time Status Last Admin Dose Admin Acetaminophen (Tylenol) 650 mg PRN Q6HRS PRN 07/17/19 10:30 Alprazolam (Xanax) 1 mg BID 07/17/19 21:00 07/23/19 21:26 1 MG Amino Acids/ Glycerin/ Electrolytes 1,000 ml @ 50 mls/hr Q20H 07/23/19 13:15 07/23/19 17:04 DC Amiodarone HCl (Cordarone) 200 mg 1X ONCE 07/21/19 15:15 07/21/19 15:16 DC 07/21/19 15:38 200 MG Amiodarone HCl 150 mg/Dextrose 103 ml @ 618 mls/hr 1X ONCE 07/19/19 12:00 07/19/19 12:09 DC 07/19/19 12:15 618 MLS/HR Amiodarone HCl 450 mg/Dextrose 259 ml @ 0 mls/hr CONT PRN 07/20/19 10:00 Cancel Apixaban (Eliquis) 5 mg BID 07/17/19 21:00 07/23/19 10:05 DC 07/23/19 08:17 5 MG Aspirin (Aspirin Chewable) 81 mg DAILYWBKFT 07/20/19 08:00 07/23/19 08:17 81 MG Aspirin (Aspirin Rectal Supp) 300 mg 1X ONCE 07/17/19 05:45 07/17/19 05:46 DC 07/17/19 06:01 300 MG Atropine Sulfate (ATROPINE 0.5mg SYRINGE) 0.5 mg PRN Q5MIN PRN 07/17/19 11:00 Bumetanide (Bumex) 1 mg 1X ONCE 07/17/19 06:00 07/17/19 06:01 DC 07/17/19 06:00 1 MG Desmopressin Acetate (Ddavp) 4 mcg BID 07/22/19 14:00 07/23/19 09:01 DC 07/23/19 10:20 4 MCG Dexmedetomidine HCl 400 mcg/ Sodium Chloride 100 ml @ 0 mls/hr CONT PRN 07/17/19 11:00 07/20/19 13:31 8.5 MLS/HR Dextrose 1,000 ml @ 75 mls/hr [id number] 07/23/19 17:00 07/23/19 17:09 75 MLS/HR Digoxin (Lanoxin) 250 mcg 1X ONCE 07/19/19 04:10 07/19/19 06:15 DC 07/19/19 04:15 250 MCG Epinephrine HCl (EPINEPHrine SYRINGE) 4 mg STK-MED ONCE 07/18/19 16:08 07/19/19 16:08 DC Epinephrine HCl 5 mg/Sodium Chloride 255 ml @ 32.926 mls/ hr CONT PRN 07/18/19 14:00 Etomidate (Amidate) 20 mg 1X ONCE 07/17/19 04:45 07/17/19 04:46 DC 07/17/19 04:43 20 MG Furosemide (Lasix) 40 mg [id number] 07/23/19 14:00 07/23/19 13:41 40 MG Heparin Sodium (Porcine) (Heparin Sodium) 7,000 unit 1X ONCE 07/18/19 14:45 07/18/19 14:52 DC 07/18/19 14:45 7,000 UNIT Heparin Sodium/ Sodium Chloride 500 ml @ As Directed STK-MED ONCE 07/18/19 15:11 07/18/19 15:11 DC Heparin Sodium/ Sodium Chloride (HEPARIN for ARTERIAL LINE FLUSH) 1,000 unit 1X ONCE 07/18/19 14:45 07/18/19 14:52 DC 07/18/19 14:45 1,000 UNIT Info (Anti-Coagulation Monitoring By Pharmacy) 1 each PRN DAILY PRN 07/18/19 08:00 07/20/19 14:42 1 EACH Info (Tpn Per Pharmacy) 1 each PRN DAILY PRN 07/22/19 08:45 Cancel Insulin Human Lispro (HumaLOG) 0-6 UNITS Q6HRS 07/17/19 12:00 07/23/19 10:06 DC Iodixanol (Visipaque 320) 100 ml 1X ONCE 07/18/19 14:45 07/18/19 14:52 DC 07/18/19 14:45 104 ML Lansoprazole (Prevacid) 30 mg DAILY 07/18/19 09:00 07/23/19 08:16 30 MG Lidocaine HCl (Lidocaine 1% 20ml Vial) 20 ml 1X ONCE 07/18/19 14:45 07/18/19 14:52 DC 07/18/19 14:45 10 ML Lidocaine HCl (Lidocaine HCl 2% Abboject) 80 mg 1X ONCE 07/20/19 10:00 07/20/19 10:03 DC 07/20/19 10:11 80 MG Lidocaine HCl (Xylocaine-Mpf 1% 2ml Vial) 2 ml STK-MED ONCE 07/18/19 13:05 07/18/19 13:05 DC Lidocaine HCl/ Dextrose 500 ml @ 0 mls/hr CONT PRN 07/20/19 10:00 07/21/19 15:07 DC 07/20/19 10:15 15 MLS/HR Linezolid/Dextrose 300 ml @ 300 mls/hr Q12HR 07/18/19 09:00 07/20/19 08:25 DC 07/19/19 21:29 300 MLS/HR Magnesium Hydroxide (Milk Of Magnesia) 2,400 mg PRN DAILY PRN 07/17/19 10:30 Magnesium Sulfate 50 ml @ 25 mls/hr PRN DAILY PRN 07/23/19 13:15 Magnesium Sulfate/ Dextrose 100 ml @ 100 mls/hr 1X ONCE 07/20/19 09:45 07/20/19 10:44 DC 07/20/19 11:43 100 MLS/HR Metolazone (Zaroxolyn) 2.5 mg QODAY 07/19/19 09:00 07/18/19 10:36 DC Metoprolol Tartrate (Lopressor) 12.5 mg Q12HR 07/23/19 21:00 07/23/19 23:00 12.5 MG Midazolam HCl 100 ml @ 0 mls/hr CONT PRN 07/17/19 07:15 07/22/19 23:41 5 MLS/HR Milrinone Lactate/ Dextrose 100 ml @ 0 mls/hr CONT PRN 07/18/19 07:15 07/23/19 10:03 DC 07/20/19 02:37 4.2 MLS/HR Morphine Sulfate 30 ml @ 0 mls/hr CONT PRN PRN 07/18/19 12:45 07/23/19 18:52 2 MLS/HR Morphine Sulfate (Morphine Sulfate) 4 mg PRN Q1HR PRN 07/17/19 11:15 07/18/19 13:53 4 MG Nitroglycerin (Nitrostat) 0.4 mg 1X ONCE 07/17/19 04:30 07/17/19 04:43 DC 07/17/19 04:29 0.4 MG Nitroglycerin/ Dextrose 250 ml @ 1.5 mls/hr CONT PRN 07/24/19 08:00 Norepinephrine Bitartrate 32 mg/ Dextrose 282 ml @ 0 mls/hr CONT PRN 07/18/19 11:15 07/23/19 10:05 DC 07/19/19 10:39 9 MLS/HR Norepinephrine Bitartrate 8 mg/ Dextrose 258 ml @ 0 mls/hr CONT PRN 07/17/19 06:30 07/18/19 13:40 DC 07/17/19 21:52 11 MLS/HR Ondansetron HCl (Zofran) 4 mg PRN Q8HRS PRN 07/17/19 06:00 07/18/19 05:59 DC Piperacillin Sod/ Tazobactam Sod 2.25 gm/Sodium Chloride 50 ml @ 100 mls/hr Q6HRS 07/17/19 18:00 07/22/19 08:47 DC 07/22/19 05:46 100 MLS/HR Piperacillin Sod/ Tazobactam Sod 3.375 gm/Sodium Chloride 50 ml @ 100 mls/hr Q6HRS 07/22/19 12:00 07/24/19 06:33 100 MLS/HR Piperacillin Sod/ Tazobactam Sod 4.5 gm/Sodium Chloride 100 ml @ 200 mls/hr 1X ONCE 07/17/19 06:00 07/17/19 06:29 DC 07/17/19 11:14 200 MLS/HR Potassium Bicarbonate (Potassium Effervescent Tablet) 40 meq 1X ONCE 07/23/19 10:15 07/23/19 10:16 DC 07/23/19 12:49 40 MEQ Potassium Chloride/Water 100 ml @ 50 mls/hr PRN Q2HR PRN 07/23/19 13:15 Potassium Chloride (Klor-Con) 40 meq 1X ONCE 07/22/19 11:45 07/22/19 11:47 DC 07/22/19 12:03 40 MEQ Propofol 100 ml @ 0 mls/hr CONT PRN 07/17/19 05:15 07/24/19 00:54 14.8 MLS/HR Rocuronium [place] (Zemuron) 50 mg 1X ONCE 07/17/19 04:45 07/17/19 04:46 DC 07/17/19 04:44 50 MG Sodium Chloride 90 meq/Potassium Chloride 50 meq/ Potassium Phosphate 13.6 mmol/Magnesium Sulfate 10 meq/ Calcium Gluconate 10 meq/ Multivitamins 10 ml/Chromium/ Copper/Manganese/ Seleni/Zn 1 ml/ Total Parenteral Nutrition/Amino Acids/Dextrose/ Fat Emulsion Intravenous 1,512 ml @ 63 mls/hr TPN CONT 07/21/19 22:00 07/22/19 09:05 DC Ticagrelor (Brilinta) 90 mg 1X ONCE 07/19/19 17:00 07/19/19 17:07 DC 07/19/19 17:28 90 MG Vancomycin HCl (Vanco Per Pharmacy) 1 each PRN DAILY PRN 07/17/19 06:00 07/17/19 10:41 DC 07/17/19 06:43 1 EACH Vancomycin HCl (Vancomycin Trough Level) 1 each 1X ONCE 07/19/19 06:00 07/19/19 06:01 Cancel Vancomycin HCl 1.75 gm/Sodium Chloride 500 ml @ 250 mls/hr Q24H 07/18/19 06:30 07/17/19 10:38 DC Vancomycin HCl 2 gm/Sodium Chloride 500 ml @ 250 mls/hr 1X ONCE 07/17/19 06:00 07/17/19 07:59 DC 07/17/19 06:15 250 MLS/HR Vecuronium [place] (Norcuron Bolus) 20 mg STK-MED ONCE 07/18/19 12:00 07/19/19 08:48 DC Labs: Lab Laboratory Tests Test 07/23/19 18:50 07/24/19 06:00 07/24/19 06:11 Potassium Level 3.5 mmol/L (3.5-5.1) 3.3 mmol/L (3.5-5.1) White Blood Count 5.2 x10^3/uL (4.0-11.0) Red Blood Count 3.93 x10^6/uL (4.30-5.70) Hemoglobin 11.6 g/dL (13.0-17.5) Hematocrit 35.1 % (39.0-53.0) Mean Corpuscular Volume 89 fL (79-100) Mean Corpuscular Hemoglobin 29 pg (25-35) Mean Corpuscular Hemoglobin Concent 33 g/dL (31-37) Red Cell Distribution Width 16.5 % (11.5-14.5) Platelet Count 127 x10^3/uL (140-400) Neutrophils (%) (Auto) 74 % (31-73) Lymphocytes (%) (Auto) 12 % (24-48) Monocytes (%) (Auto) 9 % (0-9) Eosinophils (%) (Auto) 4 % (0-3) Basophils (%) (Auto) 1 % (0-3) Neutrophils # (Auto) 3.9 x10^3/uL (1.8-7.7) Lymphocytes # (Auto) 0.6 x10^3/uL (1.0-4.8) Monocytes # (Auto) 0.5 x10^3/uL (0.0-1.1) Eosinophils # (Auto) 0.2 x10^3/uL (0.0-0.7) Basophils # (Auto) 0.0 x10^3/uL (0.0-0.2) Sodium Level 147 mmol/L (136-145) Chloride Level 110 mmol/L (98-107) Carbon Dioxide Level 28 mmol/L (21-32) Anion Gap 9 (6-14) Blood Urea Nitrogen 60 mg/dL (8-26) Creatinine 1.9 mg/dL (0.7-1.3) Estimated GFR (Cockcroft-Gault) 34.9 Glucose Level 132 mg/dL (70-99) Calcium Level 7.7 mg/dL (8.5-10.1) Magnesium Level 2.0 mg/dL (1.8-2.4) Glucose (Fingerstick) 122 mg/dL (70-99) Objective: Assessment: 1. Sepsis. 2. Leukocytosis. 3. Lactic acidosis. 4. Acute hypoxic respiratory failure, status post intubation. Bilateral pulmonary infiltrates 5. Congestive heart failure. s/p VT arrest 07/17 s/p PCI with stent placement 6. Cardiomyopathy. 7. DONTAE on Chronic kidney disease. 8. Gastroesophageal reflux disease. 9. On amiodarone. 10. COVID neg Plan: Plan of Care Continues Zosyn, 07/16, will de-escalate soon off Zyvox; s/p 1 dose of vancomycin Cultures neg Maintain aspiration precautions Supportive care Critically ill MARGRET DORSEY MD July 24, 2019 08:01
[2019-07-24] MEDS: ALPRAZolam 0.5 MG TABLET FT SCH ×2 (08:34→20:31)
[2019-07-24] MEDS: LANSOPRAZOLE 30 MG TAB.RAP.DR FT SCH (08:35)
[2019-07-24] MEDS: AMIODARONE HCL 200 MG TABLET. PO SCH (08:35)
[2019-07-24] MEDS: METOPROLOL TART IMMED RELEASE 25 MG TABLET. PO SCH ×2 (08:35→20:33)
[2019-07-24] MEDS: TICAGRELOR 90 MG TABLET. PO SCH ×2 (08:36→20:31)
[2019-07-24] MEDS: ASPIRIN CHEWABLE 81 MG TABLET. PO SCH (08:36)
[2019-07-24] MEDS: FUROSEMIDE 40 MG/4 ML VIAL. IVP SCH ×2 (08:36→14:14)
--- NOTE | 2019-07-24 09:21 | PDOC ---
PULMONARY PROGRESS NOTES Subjective Awake and alert following commands this am, currently on PS 5/5 at 50% nursing reports 1 episode of hypoxia overnight minimal secretions Vitals Vital Signs Date Time Temp Pulse Resp B/P (MAP) Pulse Ox O2 Delivery O2 Flow Rate FiO2 07/24/19 09:09 99 Ventilator 07/24/19 08:35 98 189/76 07/24/19 08:00 99.7 22 99.7 Comments ros unable to obtain on vent HEENT: Other (nc at perrl nose clear orally intubated neck no lad no thyromegaly) Lungs: Crackles Cardiovascular: S1, S2 Abdomen: Soft, Non-tender Extremities: Other (BLE +1 edema ) Skin: Warm Labs Laboratory Tests Test 07/22/19 12:00 07/22/19 18:18 07/22/19 23:39 07/23/19 05:40 Glucose (Fingerstick) 107 mg/dL (70-99) 101 mg/dL (70-99) 96 mg/dL (70-99) White Blood Count 4.9 x10^3/uL (4.0-11.0) Red Blood Count 3.84 x10^6/uL (4.30-5.70) Hemoglobin 11.3 g/dL (13.0-17.5) Hematocrit 34.2 % (39.0-53.0) Mean Corpuscular Volume 89 fL (79-100) Mean Corpuscular Hemoglobin 30 pg (25-35) Mean Corpuscular Hemoglobin Concent 33 g/dL (31-37) Red Cell Distribution Width 16.7 % (11.5-14.5) Platelet Count 103 x10^3/uL (140-400) Neutrophils (%) (Auto) 77 % (31-73) Lymphocytes (%) (Auto) 11 % (24-48) Monocytes (%) (Auto) 8 % (0-9) Eosinophils (%) (Auto) 3 % (0-3) Basophils (%) (Auto) 1 % (0-3) Neutrophils # (Auto) 3.8 x10^3/uL (1.8-7.7) Lymphocytes # (Auto) 0.5 x10^3/uL (1.0-4.8) Monocytes # (Auto) 0.4 x10^3/uL (0.0-1.1) Eosinophils # (Auto) 0.2 x10^3/uL (0.0-0.7) Basophils # (Auto) 0.0 x10^3/uL (0.0-0.2) Sodium Level 149 mmol/L (136-145) Potassium Level 3.4 mmol/L (3.5-5.1) Chloride Level 113 mmol/L (98-107) Carbon Dioxide Level 27 mmol/L (21-32) Anion Gap 9 (6-14) Blood Urea Nitrogen 63 mg/dL (8-26) Creatinine 1.9 mg/dL (0.7-1.3) Estimated GFR (Cockcroft-Gault) 34.9 Glucose Level 109 mg/dL (70-99) Calcium Level 7.6 mg/dL (8.5-10.1) Magnesium Level 2.0 mg/dL (1.8-2.4) Test 07/23/19 05:49 07/23/19 08:00 07/23/19 18:50 07/24/19 06:00 Glucose (Fingerstick) 106 mg/dL (70-99) O2 Saturation 97 % (92-99) Arterial Blood pH 7.43 (7.35-7.45) Arterial Blood pCO2 at Patient Temp 41 mmHg (35-46) Arterial Blood pO2 at Patient Temp 97 mmHg (65-108) Arterial Blood HCO3 27 mmol/L (21-28) Arterial Blood Base Excess 3 mmol/L (-3-3) FiO2 40% Potassium Level 3.5 mmol/L (3.5-5.1) 3.3 mmol/L (3.5-5.1) White Blood Count 5.2 x10^3/uL (4.0-11.0) Red Blood Count 3.93 x10^6/uL (4.30-5.70) Hemoglobin 11.6 g/dL (13.0-17.5) Hematocrit 35.1 % (39.0-53.0) Mean Corpuscular Volume 89 fL (79-100) Mean Corpuscular Hemoglobin 29 pg (25-35) Mean Corpuscular Hemoglobin Concent 33 g/dL (31-37) Red Cell Distribution Width 16.5 % (11.5-14.5) Platelet Count 127 x10^3/uL (140-400) Neutrophils (%) (Auto) 74 % (31-73) Lymphocytes (%) (Auto) 12 % (24-48) Monocytes (%) (Auto) 9 % (0-9) Eosinophils (%) (Auto) 4 % (0-3) Basophils (%) (Auto) 1 % (0-3) Neutrophils # (Auto) 3.9 x10^3/uL (1.8-7.7) Lymphocytes # (Auto) 0.6 x10^3/uL (1.0-4.8) Monocytes # (Auto) 0.5 x10^3/uL (0.0-1.1) Eosinophils # (Auto) 0.2 x10^3/uL (0.0-0.7) Basophils # (Auto) 0.0 x10^3/uL (0.0-0.2) Sodium Level 147 mmol/L (136-145) Chloride Level 110 mmol/L (98-107) Carbon Dioxide Level 28 mmol/L (21-32) Anion Gap 9 (6-14) Blood Urea Nitrogen 60 mg/dL (8-26) Creatinine 1.9 mg/dL (0.7-1.3) Estimated GFR (Cockcroft-Gault) 34.9 Glucose Level 132 mg/dL (70-99) Calcium Level 7.7 mg/dL (8.5-10.1) Magnesium Level 2.0 mg/dL (1.8-2.4) Test 07/24/19 06:11 Glucose (Fingerstick) 122 mg/dL (70-99) Laboratory Tests Test 07/23/19 18:50 07/24/19 06:00 07/24/19 06:11 Potassium Level 3.5 mmol/L (3.5-5.1) 3.3 mmol/L (3.5-5.1) White Blood Count 5.2 x10^3/uL (4.0-11.0) Red Blood Count 3.93 x10^6/uL (4.30-5.70) Hemoglobin 11.6 g/dL (13.0-17.5) Hematocrit 35.1 % (39.0-53.0) Mean Corpuscular Volume 89 fL (79-100) Mean Corpuscular Hemoglobin 29 pg (25-35) Mean Corpuscular Hemoglobin Concent 33 g/dL (31-37) Red Cell Distribution Width 16.5 % (11.5-14.5) Platelet Count 127 x10^3/uL (140-400) Neutrophils (%) (Auto) 74 % (31-73) Lymphocytes (%) (Auto) 12 % (24-48) Monocytes (%) (Auto) 9 % (0-9) Eosinophils (%) (Auto) 4 % (0-3) Basophils (%) (Auto) 1 % (0-3) Neutrophils # (Auto) 3.9 x10^3/uL (1.8-7.7) Lymphocytes # (Auto) 0.6 x10^3/uL (1.0-4.8) Monocytes # (Auto) 0.5 x10^3/uL (0.0-1.1) Eosinophils # (Auto) 0.2 x10^3/uL (0.0-0.7) Basophils # (Auto) 0.0 x10^3/uL (0.0-0.2) Sodium Level 147 mmol/L (136-145) Chloride Level 110 mmol/L (98-107) Carbon Dioxide Level 28 mmol/L (21-32) Anion Gap 9 (6-14) Blood Urea Nitrogen 60 mg/dL (8-26) Creatinine 1.9 mg/dL (0.7-1.3) Estimated GFR (Cockcroft-Gault) 34.9 Glucose Level 132 mg/dL (70-99) Calcium Level 7.7 mg/dL (8.5-10.1) Magnesium Level 2.0 mg/dL (1.8-2.4) Glucose (Fingerstick) 122 mg/dL (70-99) Medications Active Scripts Medications Dose Route/Sig Max Daily Dose Days Date Category Toprol XL (Metoprolol Succinate) 50 Mg Tab.er.24h 50 Mg PO DAILY 06/20/19 Rx Metolazone 2.5 Mg Tablet 2.5 Mg PO QODAY 06/20/19 Rx Furosemide 40 Mg Tablet 40 Mg PO BID92 06/20/19 Rx Klor-Con M20 (Potassium Chloride) 20 Meq Tab.er.prt 20 Meq PO BIDWMEALS 06/20/19 Rx Amiodarone Hcl 200 Mg Tablet 200 Mg PO DAILY 06/20/19 Rx Eliquis (Apixaban) 5 Mg Tablet 5 Mg PO BID 06/20/19 Rx Acetaminophen 325 Mg Tablet 325 Mg PO Q6HRS 06/13/19 Reported Dicyclomine Hcl 10 Mg Capsule 1 Cap PO PRN TID PRN 05/17/19 Reported Nexium Capsule (Esomeprazole Magnesium) 40 Mg Capsule.dr 40 Mg PO DAILYAC 05/17/19 Reported Oxycodone Hcl Immed.release (Oxycodone Hcl) 15 Mg Tablet 15 Mg PO PRN Q12HR PRN 05/17/19 Reported Alprazolam 1 Mg Tablet 1 Tab PO BID 02/05/17 Reported Comments EF from 07/20/2019 <Conclusion> Left ventricle systolic function is mildly impaired. The Ejection Fraction is 40-45%. Septal motion consistent with conduction abnormality. Mild global hypokinesis. Technically difficult study. Limited study for EF only. CXR 07/24/2019 IMPRESSION: 1. Small inspiration with decreased aeration. Small bilateral pleural effusions. Mild pulmonary edema. Impression . IMPRESSION: 1. Acute hypoxemic hypercapnic respiratory failure. 2. Bilateral pulmonary infiltrates, suspect combination of congestive heart failure and pneumonia. 3. Sepsis. 4. SARS-CoV 2, negative 5. Cardiomyopathy, ejection fraction of 15%. 6. Chronic atrial fibrillation. 7. DONTAE/Chronic kidney disease. 8. Acute on chronic systolic heart failure. 9. Hypotension, requiring pressors, suspect secondary to sepsis. 10. Mild elevation in troponin. 11. Paroxysmal atrial fibrillation with recent cardioversion. 12. Status post CODE BLUE secondary to V. tach/coronary artery disease see below CArdiac CAth 07/18/2019 Conclusion 1. Normal biventricular filling pressures. 2. Mild pulmonary HTN 3. Normal cardiac output at 5.1 L/min 4. One vessel coronary disease. 5. Successful PCI of the RCA as described above 6. Patient had one episode of SVT with hypotension requiring synchronized cardioversion to SR. Plan . 1. Continue A/C, PS trial completed today-- hypoxia overnight will plan for trial in am 2. bronchodilators/ CXR reviewed 3. Follow cardiology recs and lasix 4. cont. ABX 5. Follow nephrology recs cr is slightly worse today 6. D/W RN and RT DVT/GI PPX: eliquis per cards/ prevacid CODE: FULL Critical care time 30 minutes JUAN J CLARK MD July 24, 2019 09:21
[2019-07-24] MEDS ORDERED: POTASSIUM CHLORIDE 20 MEQ TABLET.ER. PO ONE (11:00)
--- NOTE | 2019-07-24 11:06 | PDOC ---
PROGRESS NOTES Subjective Subjective alert on ventilator. labs reviewed. discussed with nurse. Objective Objective Vital Signs Date Time Temp Pulse Resp B/P (MAP) Pulse Ox O2 Delivery O2 Flow Rate FiO2 07/24/19 10:00 77 23 141/62 (88) 100 Ventilator 07/24/19 08:00 99.7 99.7 07/23/19 04:28 15.0 Intake and Output 07/24/19 07:00 Intake Total 5122.7 ml Output Total 2547 ml Balance 2575.7 ml Intake Oral 100 ml IV Total 1243.7 ml Tube Feeding 3179 ml Other 600 ml Output Urine Total 2547 ml Gastric Drainage Total 0 ml # Bowel Movements 1 Physical Exam Abdomen: Soft Heart: Regular rate, Normal S1, Normal S2 Extremities: No edema General: Alert HEENT: Atraumatic Lungs: Clear to auscultation Neuro: Other (intubated) Psych/Mental Status: Other (intubated) Skin: No rashes Assessment Assessment Problems1. Acute pulmonary edema. compensated 2. Acute on chronic systolic congestive heart failure.compensated 3. Severe cardiomyopathy with left ventricular ejection fraction 40-45% 07/19 per echo 4. Acute hypoxic and hypercarbic respiratory failure, on the ventilator. 5. Paroxysmal atrial fibrillation, currently in NSR 6. sepsis with shock, shock resolved 7. chronic kidney disease stage 3. bun higher due to intravascular volume depletion. off lasix 8. Gastroesophageal reflux disease. 9. Leukocytosis resolved bilateral lung infiltrates. suspect pneumonia hypernatremia mild hypokalemia hypomagnesemia resolved VT cardiac arrest 07/17 and again 07/19 PCI RCA 07/17 gross hematuria Medical Problems: (1) Acute exacerbation of CHF (congestive heart failure) Status: Acute (2) Acute on chronic renal insufficiency Status: Acute (3) Elevated troponin I level Status: Acute (4) Septic shock Status: Acute (5) Suspected COVID-19 virus infection Status: Acute Plan Plan of Care resume eliquis when gross hematuria resolves ventilator weaning continue OGT feeding replete kcl continue iv lasix Comment Review of Relevant I have reviewed the following items juan (where applicable) has been applied. Labs Laboratory Tests Test 07/22/19 12:00 07/22/19 18:18 07/22/19 23:39 07/23/19 05:40 Glucose (Fingerstick) 107 mg/dL (70-99) 101 mg/dL (70-99) 96 mg/dL (70-99) White Blood Count 4.9 x10^3/uL (4.0-11.0) Red Blood Count 3.84 x10^6/uL (4.30-5.70) Hemoglobin 11.3 g/dL (13.0-17.5) Hematocrit 34.2 % (39.0-53.0) Mean Corpuscular Volume 89 fL (79-100) Mean Corpuscular Hemoglobin 30 pg (25-35) Mean Corpuscular Hemoglobin Concent 33 g/dL (31-37) Red Cell Distribution Width 16.7 % (11.5-14.5) Platelet Count 103 x10^3/uL (140-400) Neutrophils (%) (Auto) 77 % (31-73) Lymphocytes (%) (Auto) 11 % (24-48) Monocytes (%) (Auto) 8 % (0-9) Eosinophils (%) (Auto) 3 % (0-3) Basophils (%) (Auto) 1 % (0-3) Neutrophils # (Auto) 3.8 x10^3/uL (1.8-7.7) Lymphocytes # (Auto) 0.5 x10^3/uL (1.0-4.8) Monocytes # (Auto) 0.4 x10^3/uL (0.0-1.1) Eosinophils # (Auto) 0.2 x10^3/uL (0.0-0.7) Basophils # (Auto) 0.0 x10^3/uL (0.0-0.2) Sodium Level 149 mmol/L (136-145) Potassium Level 3.4 mmol/L (3.5-5.1) Chloride Level 113 mmol/L (98-107) Carbon Dioxide Level 27 mmol/L (21-32) Anion Gap 9 (6-14) Blood Urea Nitrogen 63 mg/dL (8-26) Creatinine 1.9 mg/dL (0.7-1.3) Estimated GFR (Cockcroft-Gault) 34.9 Glucose Level 109 mg/dL (70-99) Calcium Level 7.6 mg/dL (8.5-10.1) Magnesium Level 2.0 mg/dL (1.8-2.4) Test 07/23/19 05:49 07/23/19 08:00 07/23/19 18:50 07/24/19 06:00 Glucose (Fingerstick) 106 mg/dL (70-99) O2 Saturation 97 % (92-99) Arterial Blood pH 7.43 (7.35-7.45) Arterial Blood pCO2 at Patient Temp 41 mmHg (35-46) Arterial Blood pO2 at Patient Temp 97 mmHg (65-108) Arterial Blood HCO3 27 mmol/L (21-28) Arterial Blood Base Excess 3 mmol/L (-3-3) FiO2 40% Potassium Level 3.5 mmol/L (3.5-5.1) 3.3 mmol/L (3.5-5.1) White Blood Count 5.2 x10^3/uL (4.0-11.0) Red Blood Count 3.93 x10^6/uL (4.30-5.70) Hemoglobin 11.6 g/dL (13.0-17.5) Hematocrit 35.1 % (39.0-53.0) Mean Corpuscular Volume 89 fL (79-100) Mean Corpuscular Hemoglobin 29 pg (25-35) Mean Corpuscular Hemoglobin Concent 33 g/dL (31-37) Red Cell Distribution Width 16.5 % (11.5-14.5) Platelet Count 127 x10^3/uL (140-400) Neutrophils (%) (Auto) 74 % (31-73) Lymphocytes (%) (Auto) 12 % (24-48) Monocytes (%) (Auto) 9 % (0-9) Eosinophils (%) (Auto) 4 % (0-3) Basophils (%) (Auto) 1 % (0-3) Neutrophils # (Auto) 3.9 x10^3/uL (1.8-7.7) Lymphocytes # (Auto) 0.6 x10^3/uL (1.0-4.8) Monocytes # (Auto) 0.5 x10^3/uL (0.0-1.1) Eosinophils # (Auto) 0.2 x10^3/uL (0.0-0.7) Basophils # (Auto) 0.0 x10^3/uL (0.0-0.2) Sodium Level 147 mmol/L (136-145) Chloride Level 110 mmol/L (98-107) Carbon Dioxide Level 28 mmol/L (21-32) Anion Gap 9 (6-14) Blood Urea Nitrogen 60 mg/dL (8-26) Creatinine 1.9 mg/dL (0.7-1.3) Estimated GFR (Cockcroft-Gault) 34.9 Glucose Level 132 mg/dL (70-99) Calcium Level 7.7 mg/dL (8.5-10.1) Magnesium Level 2.0 mg/dL (1.8-2.4) Test 07/24/19 06:11 Glucose (Fingerstick) 122 mg/dL (70-99) Laboratory Tests Test 07/23/19 18:50 07/24/19 06:00 07/24/19 06:11 Potassium Level 3.5 mmol/L (3.5-5.1) 3.3 mmol/L (3.5-5.1) White Blood Count 5.2 x10^3/uL (4.0-11.0) Red Blood Count 3.93 x10^6/uL (4.30-5.70) Hemoglobin 11.6 g/dL (13.0-17.5) Hematocrit 35.1 % (39.0-53.0) Mean Corpuscular Volume 89 fL (79-100) Mean Corpuscular Hemoglobin 29 pg (25-35) Mean Corpuscular Hemoglobin Concent 33 g/dL (31-37) Red Cell Distribution Width 16.5 % (11.5-14.5) Platelet Count 127 x10^3/uL (140-400) Neutrophils (%) (Auto) 74 % (31-73) Lymphocytes (%) (Auto) 12 % (24-48) Monocytes (%) (Auto) 9 % (0-9) Eosinophils (%) (Auto) 4 % (0-3) Basophils (%) (Auto) 1 % (0-3) Neutrophils # (Auto) 3.9 x10^3/uL (1.8-7.7) Lymphocytes # (Auto) 0.6 x10^3/uL (1.0-4.8) Monocytes # (Auto) 0.5 x10^3/uL (0.0-1.1) Eosinophils # (Auto) 0.2 x10^3/uL (0.0-0.7) Basophils # (Auto) 0.0 x10^3/uL (0.0-0.2) Sodium Level 147 mmol/L (136-145) Chloride Level 110 mmol/L (98-107) Carbon Dioxide Level 28 mmol/L (21-32) Anion Gap 9 (6-14) Blood Urea Nitrogen 60 mg/dL (8-26) Creatinine 1.9 mg/dL (0.7-1.3) Estimated GFR (Cockcroft-Gault) 34.9 Glucose Level 132 mg/dL (70-99) Calcium Level 7.7 mg/dL (8.5-10.1) Magnesium Level 2.0 mg/dL (1.8-2.4) Glucose (Fingerstick) 122 mg/dL (70-99) Microbiology 07/17/19 Urine Culture - Final, Complete 07/17/19 Urine Culture Result 1 (BOYD) - Final, Complete 07/17/19 Blood Culture - Final, Complete NO GROWTH AFTER 5 DAYS 07/17/19 Nose/Throat Culture - Final, Complete 07/17/19 - Final, Complete Medications Current Medications Nitroglycerin (Nitrostat) 0.4 mg STK-MED ONCE SL ; Start 07/17/19 at 04:28; Stop 07/17/19 at 04:28; Status DC Nitroglycerin (Nitrostat) 0.4 mg 1X ONCE SL Last administered on 07/17/19at 04:29; Start 07/17/19 at 04:30; Stop 07/17/19 at 04:43; Status DC Nitroglycerin/ Dextrose 250 ml @ 0 mls/hr 1X ONCE IV Last administered on 07/17/19at 04:47; Start 07/17/19 at 04:45; Stop 07/17/19 at 04:46; Status DC Rocuronium [place] (Zemuron) 50 mg 1X ONCE IV Last administered on 07/17/19at 04:44; Start 07/17/19 at 04:45; Stop 07/17/19 at 04:46; Status DC Etomidate (Amidate) 20 mg 1X ONCE IV Last administered on 07/17/19at 04:43; Start 07/17/19 at 04:45; Stop 07/17/19 at 04:46; Status DC Propofol 100 ml @ 0 mls/hr CONT PRN IV SEE PROTOCOL Last administered on 07/24/19at 09:49; Start 07/17/19 at 05:15 Aspirin (Aspirin Rectal Supp) 300 mg 1X ONCE VA Last administered on 07/17/19at 06:01; Start 07/17/19 at 05:45; Stop 07/17/19 at 05:46; Status DC Bumetanide (Bumex) 1 mg 1X ONCE IV Last administered on 07/17/19at 06:00; Start 07/17/19 at 06:00; Stop 07/17/19 at 06:01; Status DC Piperacillin Sod/ Tazobactam Sod 4.5 gm/Sodium Chloride 100 ml @ 200 mls/hr 1X ONCE IV Last administered on 07/17/19at 11:14; Start 07/17/19 at 06:00; Stop 07/17/19 at 06:29; Status DC Vancomycin HCl (Vanco Per Pharmacy) 1 each PRN DAILY PRN MC SEE COMMENTS Last administered on 07/17/19at 06:43; Start 07/17/19 at 06:00; Stop 07/17/19 at 10:41; Status DC Vancomycin HCl 2 gm/Sodium Chloride 500 ml @ 250 mls/hr 1X ONCE IV Last administered on 07/17/19at 06:15; Start 07/17/19 at 06:00; Stop 07/17/19 at 07:59; Status DC Ondansetron HCl (Zofran) 4 mg PRN Q8HRS PRN IV NAUSEA/VOMITING; Start 07/17/19 at 06:00; Stop 07/18/19 at 05:59; Status DC Norepinephrine Bitartrate 8 mg/ Dextrose 258 ml @ 0 mls/hr CONT PRN IV SEE I/O RECORD Last administered on 07/17/19at 21:52; Start 07/17/19 at 06:30; Stop 07/18/19 at 13:40; Status DC Vancomycin HCl 1.75 gm/Sodium Chloride 500 ml @ 250 mls/hr Q24H IV ; Start 07/18/19 at 06:30; Stop 07/17/19 at 10:38; Status DC Vancomycin HCl (Vancomycin Trough Level) 1 each 1X ONCE MC ; Start 07/19/19 at 06:00; Stop 07/19/19 at 06:01; Status Cancel Morphine Sulfate (Morphine Sulfate) 6 mg 1X ONCE IV Last administered on 07/17/19at 07:08; Start 07/17/19 at 07:15; Stop 07/17/19 at 07:16; Status DC Midazolam HCl 100 ml @ 0 mls/hr CONT PRN IV SEE PROTOCOL Last administered on 07/22/19at 23:41; Start 07/17/19 at 07:15 Morphine Sulfate (Morphine Sulfate) 4 mg PRN Q1HR PRN IV SEE COMMENTS.; Start 07/17/19 at 08:00; Stop 07/17/19 at 10:38; Status DC Heparin Sodium (Porcine) (Heparin Sodium) 5,000 unit Q12HR SQ ; Start 07/17/19 at 21:00; Stop 07/17/19 at 10:38; Status DC Amiodarone HCl (Cordarone) 200 mg DAILY PO Last administered on 07/21/19at 09:04; Start 07/18/19 at 09:00; Stop 07/21/19 at 15:07; Status DC Metolazone (Zaroxolyn) 2.5 mg QODAY PO ; Start 07/19/19 at 09:00; Stop 07/18/19 at 10:36; Status DC Potassium Chloride (Klor-Con) 20 meq BIDWMEALS PO Last administered on 07/17/19at 16:34; Start 07/17/19 at 17:00; Stop 07/18/19 at 10:36; Status DC Furosemide (Lasix) 40 mg [id number] IVP Last administered on 07/18/19at 08:03; Start 07/17/19 at 14:00; Stop 07/20/19 at 11:02; Status DC Morphine Sulfate (Morphine Sulfate) 2 mg PRN Q4HRS PRN IV SEE COMMENTS.; Start 07/17/19 at 10:30; Status Cancel Apixaban (Eliquis) 5 mg BID FT Last administered on 07/23/19at 08:17; Start 07/17/19 at 21:00; Stop 07/23/19 at 10:05; Status DC Insulin Human Lispro (HumaLOG) 0-6 UNITS Q6HRS SQ ; Start 07/17/19 at 12:00; Stop 07/23/19 at 10:06; Status DC Lansoprazole (Prevacid) 30 mg DAILY FT Last administered on 07/24/19at 08:35; Start 07/18/19 at 09:00 Acetaminophen (Tylenol) 650 mg PRN Q6HRS PRN FT MILD PAIN / TEMP > 100.3'F; Start 07/17/19 at 10:30 Alprazolam (Xanax) 1 mg BID FT Last administered on 07/24/19at 08:34; Start 07/17/19 at 21:00 Magnesium Hydroxide (Milk Of Magnesia) 2,400 mg PRN DAILY PRN FT CONSTIPATION; Start 07/17/19 at 10:30 Dexmedetomidine HCl 400 mcg/ Sodium Chloride 100 ml @ 0 mls/hr CONT PRN IV PER PROTOCOL Last administered on 07/20/19at 13:31; Start 07/17/19 at 11:00 Sodium Chloride 500 ml @ 500 mls/hr 1X PRN PRN IV SEE COMMENTS; Start 07/17/19 at 11:00; Stop 07/22/19 at 12:54; Status DC Atropine Sulfate (ATROPINE 0.5mg SYRINGE) 0.5 mg PRN Q5MIN PRN IV SEE COMMENTS; Start 07/17/19 at 11:00 Morphine Sulfate (Morphine Sulfate) 2 mg PRN Q1HR PRN IV SEE COMMENTS. Last administered on 07/17/19at 13:37; Start 07/17/19 at 11:15 Morphine Sulfate (Morphine Sulfate) 4 mg PRN Q1HR PRN IV SEE COMMENTS. Last administered on 07/18/19at 13:53; Start 07/17/19 at 11:15 Piperacillin Sod/ Tazobactam Sod 2.25 gm/Sodium Chloride 50 ml @ 100 mls/hr Q6HRS IV Last administered on 07/22/19at 05:46; Start 07/17/19 at 18:00; Stop 07/22/19 at 08:47; Status DC Magnesium Sulfate 50 ml @ 25 mls/hr 1X ONCE IV Last administered on 07/18/19at 08:04; Start 07/18/19 at 07:15; Stop 07/18/19 at 09:14; Status DC Milrinone Lactate/ Dextrose 100 ml @ 0 mls/hr CONT PRN IV SEE I/O RECORD Last administered on 07/20/19at 02:37; Start 07/18/19 at 07:15; Stop 07/23/19 at 10:03; Status DC Linezolid/Dextrose 300 ml @ 300 mls/hr Q12HR IV Last administered on 07/19/19at 21:29; Start 07/18/19 at 09:00; Stop 07/20/19 at 08:25; Status DC Info (Anti-Coagulation Monitoring By Pharmacy) 1 each PRN DAILY PRN MC SEE COMMENTS Last administered on 07/20/19at 14:42; Start 07/18/19 at 08:00 Vecuronium [place] (Norcuron Bolus) 10 mg STK-MED ONCE IV ; Start 07/18/19 at 09:12; Stop 07/18/19 at 09:12; Status DC Potassium Chloride/Water 100 ml @ 100 mls/hr 1X ONCE IV Last administered on 07/18/19at 10:04; Start 07/18/19 at 09:45; Stop 07/18/19 at 10:44; Status DC Magnesium Sulfate 50 ml @ 25 mls/hr 1X ONCE IV Last administered on 07/18/19at 10:03; Start 07/18/19 at 09:45; Stop 07/18/19 at 11:44; Status DC Norepinephrine Bitartrate 32 mg/ Dextrose 282 ml @ 0 mls/hr CONT PRN IV SEE I/O RECORD Last administered on 07/19/19at 10:39; Start 07/18/19 at 11:15; Stop 07/23/19 at 10:05; Status DC Morphine Sulfate 30 ml @ 0 mls/hr CONT PRN PRN IV PER PROTOCOL Last administered on 07/23/19at 18:52; Start 07/18/19 at 12:45 Lidocaine HCl (Xylocaine-Mpf 1% 2ml Vial) 2 ml STK-MED ONCE .ROUTE ; Start 07/18/19 at 13:05; Stop 07/18/19 at 13:05; Status DC Iodixanol (Visipaque 320) 100 ml STK-MED ONCE .ROUTE ; Start 07/18/19 at 13:05; Stop 07/18/19 at 13:06; Status DC Heparin Sodium/ Sodium Chloride 1,500 ml @ As Directed STK-MED ONCE .ROUTE ; Start 07/18/19 at 13:05; Stop 07/18/19 at 13:06; Status DC Vecuronium [place] (Norcuron Bolus) 10 mg STK-MED ONCE IV ; Start 07/18/19 at 13:49; Stop 07/18/19 at 13:49; Status DC Vecuronium [place] (Norcuron Bolus) 6 mg PRN Q4HRS PRN IV ANXIETY / AGITATION; Start 07/18/19 at 14:00 Epinephrine HCl 5 mg/Sodium Chloride 255 ml @ 32.926 mls/ hr CONT PRN IV SEE I/O RECORD; Start 07/18/19 at 14:00 Lidocaine HCl (Lidocaine 1% 20ml Vial) 20 ml STK-MED ONCE .ROUTE ; Start 07/18/19 at 14:11; Stop 07/18/19 at 14:11; Status DC Heparin Sodium (Porcine) (Heparin Sodium) 10,000 unit STK-MED ONCE .ROUTE ; Start 07/18/19 at 14:27; Stop 07/18/19 at 14:28; Status DC Heparin Sodium/ Sodium Chloride (HEPARIN for ARTERIAL LINE FLUSH) 1,000 unit 1X ONCE IART Last administered on 07/18/19at 14:45; Start 07/18/19 at 14:45; Stop 07/18/19 at 14:52; Status DC Heparin Sodium/ Sodium Chloride (HEPARIN for ARTERIAL LINE FLUSH) 1,000 unit 1X ONCE IART Last administered on 07/18/19at 14:45; Start 07/18/19 at 14:45; Stop 07/18/19 at 14:52; Status DC Iodixanol (Visipaque 320) 100 ml 1X ONCE IART Last administered on 07/18/19at 14:45; Start 07/18/19 at 14:45; Stop 07/18/19 at 14:52; Status DC Heparin Sodium (Porcine) (Heparin Sodium) 7,000 unit 1X ONCE IV Last administered on 07/18/19at 14:45; Start 07/18/19 at 14:45; Stop 07/18/19 at 14:5 2; Status DC Lidocaine HCl (Lidocaine 1% 20ml Vial) 20 ml 1X ONCE INJ Last administered on 07/18/19at 14:45; Start 07/18/19 at 14:45; Stop 07/18/19 at 14:52; Status DC Heparin Sodium/ Sodium Chloride 500 ml @ As Directed STK-MED ONCE .ROUTE ; Start 07/18/19 at 15:11; Stop 07/18/19 at 15:11; Status DC Ticagrelor (Brilinta) 180 mg 1X ONCE PO Last administered on 07/18/19at 16:08; Start 07/18/19 at 16:00; Stop 07/18/19 at 16:01; Status DC Digoxin (Lanoxin) 250 mcg 1X ONCE IV ; Start 07/19/19 at 06:15; Stop 07/19/19 at 06:16; Status Cancel Digoxin (Lanoxin) 250 mcg 1X ONCE IV Last administered on 07/19/19at 05:15; Start 07/19/19 at 05:15; Stop 07/19/19 at 06:11; Status DC Digoxin (Lanoxin) 250 mcg 1X ONCE IV Last administered on 07/19/19at 08:48; St art 07/19/19 at 09:00; Stop 07/19/19 at 09:01; Status DC Digoxin (Lanoxin) 250 mcg 1X ONCE IV Last administered on 07/19/19at 04:15; Start 07/19/19 at 04:10; Stop 07/19/19 at 06:15; Status DC Vecuronium [place] (Norcuron Bolus) 20 mg STK-MED ONCE IV ; Start 07/18/19 at 12:00; Stop 07/19/19 at 08:48; Status DC Potassium Chloride/Water 100 ml @ 100 mls/hr 1X ONCE IV Last administered on 07/19/19at 12:13; Start 07/19/19 at 11:45; Stop 07/19/19 at 12:44; Status DC Amiodarone HCl 150 mg/Dextrose 103 ml @ 618 mls/hr 1X ONCE IV Last administered on 07/19/19at 12:15; Start 07/19/19 at 12:00; Stop 07/19/19 at 12:09; Status DC Metoprolol Tartrate (Lopressor) 12.5 mg Q6HRS PO Last administered on 07/23/19at 05:54; Start 07/19/19 at 12:00; Stop 07/23/19 at 10:05; Status DC Amiodarone HCl (Cordarone) 300 mg STK-MED ONCE .ROUTE ; Start 07/18/19 at 16:08; Stop 07/19/19 at 16:08; Status DC Epinephrine HCl (EPINEPHrine SYRINGE) 4 mg STK-MED ONCE .ROUTE ; Start 07/18/19 at 16:08; Stop 07/19/19 at 16:08; Status DC Aspirin (Aspirin Chewable) 81 mg 1X ONCE PO Last administered on 07/19/19at 17:28; Start 07/19/19 at 17:00; Stop 07/19/19 at 17:06; Status DC Aspirin (Aspirin Chewable) 81 mg [id number] PO Last administered on 07/24/19at 08:36; Start 07/20/19 at 08:00 Ticagrelor (Brilinta) 90 mg BID PO Last administered on 07/24/19at 08:36; Start 07/20/19 at 09:00 Ticagrelor (Brilinta) 90 mg 1X ONCE PO Last administered on 07/19/19at 17:28; Start 07/19/19 at 17:00; Stop 07/19/19 at 17:07; Status DC Info (Tpn Per Pharmacy) 1 each PRN DAILY PRN MC SEE COMMENTS Last administered on 07/21/19at 11:58; Start 07/19/19 at 17:00; Stop 07/21/19 at 19:42; Status DC Magnesium Sulfate/ Dextrose 100 ml @ 100 mls/hr 1X ONCE IV Last administered on 07/20/19at 09:40; Start 07/20/19 at 09:45; Stop 07/20/19 at 10:44; Status DC Magnesium Sulfate/ Dextrose 100 ml @ 100 mls/hr 1X ONCE IV Last administered on 07/20/19at 11:43; Start 07/20/19 at 09:45; Stop 07/20/19 at 10:44; Status DC Potassium Chloride/Water 100 ml @ 100 mls/hr Q1H IV Last administered on 07/20/19at 15:45; Start 07/20/19 at 09:45; Stop 07/20/19 at 13:44; Status DC Amiodarone HCl 450 mg/Dextrose 259 ml @ 0 mls/hr CONT PRN IV SEE I/O RECORD; Start 07/20/19 at 10:00; Status Cancel Lidocaine HCl (Lidocaine HCl 2% Abboject) 80 mg 1X ONCE IV Last administered on 07/20/19at 10:11; Start 07/20/19 at 10:00; Stop 07/20/19 at 10:03; Status DC Lidocaine HCl/ Dextrose 500 ml @ 0 mls/hr CONT PRN IV SEE I/O RECORD Last administered on 07/20/19at 10:15; Start 07/20/19 at 10:00; Stop 07/21/19 at 15:07; Status DC Furosemide (Lasix) 40 mg DAILY IVP Last administered on 07/22/19at 09:03; Start 07/21/19 at 09:00; Stop 07/22/19 at 12:54; Status DC Sodium Chloride 90 meq/Potassium Chloride 50 meq/ Potassium Phosphate 13.6 mmol/Magnesium Sulfate 10 meq/ Calcium Gluconate 10 meq/ Multivitamins 10 ml/Chromium/ Copper/Manganese/ Seleni/Zn 1 ml/ Total Parenteral Nutrition/Amino Acids/Dextrose/ Fat Emulsion Intravenous 1,512 ml @ 63 mls/hr TPN CONT IV Last administered on 07/20/19at 22:01; Start 07/20/19 at 22:00; Stop 07/21/19 at 21:59; Status DC Sodium Chloride 90 meq/Potassium Chloride 50 meq/ Potassium Phosphate 13.6 mmol/Magnesium Sulfate 10 meq/ Calcium Gluconate 10 meq/ Multivitamins 10 ml/Chromium/ Copper/Manganese/ Seleni/Zn 1 ml/ Total Parenteral Nutrition/Amino Acids/Dextrose/ Fat Emulsion Intravenous 1,512 ml @ 63 mls/hr TPN CONT IV ; Start 07/21/19 at 22:00; Stop 07/22/19 at 09:05; Status DC Potassium Chloride (Klor-Con) 40 meq 1X ONCE PO Last administered on 07/21/19at 15:38; Start 07/21/19 at 14:30; Stop 07/21/19 at 14:33; Status DC Amiodarone HCl (Cordarone) 400 mg DAILY PO Last administered on 07/24/19at 08:35; Start 07/22/19 at 09:00 Amiodarone HCl (Cordarone) 200 mg 1X ONCE PO Last administered on 07/21/19at 15:38; Start 07/21/19 at 15:15; Stop 07/21/19 at 15:16; Status DC Info (Tpn Per Pharmacy) 1 each PRN DAILY PRN MC SEE COMMENTS; Start 07/22/19 at 08:45; Status Cancel Piperacillin Sod/ Tazobactam Sod 3.375 gm/Sodium Chloride 50 ml @ 100 mls/hr Q6HRS IV Last administered on 07/24/19at 06:33; Start 07/22/19 at 12:00 Potassium Chloride (Klor-Con) 40 meq 1X ONCE PO Last administered on 07/22/19at 12:03; Start 07/22/19 at 11:45; Stop 07/22/19 at 11:47; Status DC Desmopressin Acetate (Ddavp) 4 mcg BID SQ Last administered on 07/23/19at 10:20; Start 07/22/19 at 14:00; Stop 07/23/19 at 09:01; Status DC Metoprolol Tartrate (Lopressor) 12.5 mg Q12HR PO Last administered on 07/24/19at 08:35; Start 07/23/19 at 21:00 Potassium Bicarbonate (Potassium Effervescent Tablet) 40 meq 1X ONCE PO Last administered on 07/23/19at 12:49; Start 07/23/19 at 10:15; Stop 07/23/19 at 10:16; Status DC Magnesium Sulfate 50 ml @ 25 mls/hr PRN DAILY PRN IV for Mag < 1.7 on am labs; Start 07/23/19 at 13:15 Potassium Chloride/Water 100 ml @ 50 mls/hr PRN Q6HRS PRN IV For K < 3.7; Start 07/23/19 at 13:15 Potassium Chloride/Water 100 ml @ 50 mls/hr PRN Q2HR PRN IV total of 40mEq for K < 3.5; Start 07/23/19 at 13:15 Amino Acids/ Glycerin/ Electrolytes 1,000 ml @ 50 mls/hr Q20H IV ; Start at 13:15; Stop 07/23/19 at 17:04; Status DC Furosemide (Lasix) 40 mg [id number] IVP Last administered on 07/24/19at 08:36; Start 07/23/19 at 14:00 Dextrose 1,000 ml @ 75 mls/hr [id number] IV Last administered on 07/23/19at 17:09; Start 07/23/19 at 17:00 Nitroglycerin/ Dextrose 250 ml @ 1.5 mls/hr CONT PRN IV SEE I/O RECORD Last administered on 07/24/19at 08:05; Start 07/24/19 at 08:00 Active Scripts Active Toprol XL (Metoprolol Succinate) 50 Mg Tab.er.24h 50 Mg PO DAILY Metolazone 2.5 Mg Tablet 2.5 Mg PO QODAY Furosemide 40 Mg Tablet 40 Mg PO [id number] Klor-Con M20 (Potassium Chloride) 20 Meq Tab.er.prt 20 Meq PO BIDWMEALS Amiodarone Hcl 200 Mg Tablet 200 Mg PO DAILY Eliquis (Apixaban) 5 Mg Tablet 5 Mg PO BID Reported Acetaminophen 325 Mg Tablet 325 Mg PO Q6HRS Dicyclomine Hcl 10 Mg Capsule 1 Cap PO PRN TID PRN Nexium Capsule (Esomeprazole Magnesium) 40 Mg Capsule.dr 40 Mg PO DAILYAC Oxycodone Hcl Immed.release (Oxycodone Hcl) 15 Mg Tablet 15 Mg PO PRN Q12HR PRN Alprazolam 1 Mg Tablet 1 Tab PO BID Vitals/I & O Vital Sign - Last 24 Hours 07/23/19 07/23/19 07/23/19 07/23/19 11:32 12:00 12:00 12:00 Temp 98.4 98.4 Pulse 54 59 Resp 16 B/P (MAP) 94/55 (68) Pulse Ox 98 98 O2 Delivery Ventilator Mechanical Ventilator Ventilator 07/23/19 07/23/19 07/23/19 07/23/19 13:00 14:00 15:00 15:30 Pulse 58 56 52 Resp 16 16 16 B/P (MAP) 91/44 (60) 104/46 (65) 100/46 (64) Pulse Ox 98 99 99 98 O2 Delivery Ventilator Ventilator Ventilator Ventilator 07/23/19 07/23/19 07/23/19 07/23/19 16:00 16:00 16:00 17:00 Temp 97.7 97.7 Pulse 52 62 54 Resp 16 16 B/P (MAP) 102/46 (64) 112/50 (70) Pulse Ox 99 100 O2 Delivery Ventilator Mechanical Ventilator Ventilator 07/23/19 07/23/19 07/23/19 07/23/19 18:00 18:52 19:00 19:22 Pulse 55 54 Resp 16 16 16 16 B/P (MAP) 113/48 (69) 100/42 (61) Pulse Ox 96 98 98 O2 Delivery Ventilator Ventilator Ventilator Ventilator 07/23/19 07/23/19 07/23/19 07/23/19 20:00 20:00 20:00 20:34 Temp 97.7 97.7 Pulse 56 51 Resp 16 B/P (MAP) 100/52 (68) 115/47 (69) Pulse Ox 99 100 O2 Delivery Mechanical Ventilator Ventilator Ventilator 07/23/19 07/23/19 07/23/19 07/23/19 21:00 22:00 23:00 23:02 Pulse 52 53 54 55 Resp 16 16 16 B/P (MAP) 124/54 (77) 115/46 (69) 105/42 107/43 (64) Pulse Ox 95 98 99 O2 Delivery Ventilator Ventilator Ventilator 07/23/19 07/24/19 07/24/19 07/24/19 23:59 00:00 00:01 00:51 Temp 98.2 98.2 Pulse 54 51 Resp 16 B/P (MAP) 115/46 (69) 113/45 (67) Pulse Ox 91 100 O2 Delivery Mechanical Ventilator Ventilator Ventilator 07/24/19 07/24/19 07/24/19 07/24/19 01:00 02:00 03:00 04:00 Pulse 53 51 53 56 Resp 16 16 16 B/P (MAP) 117/46 (69) 107/41 (63) 121/47 (71) 114/43 (66) Pulse Ox 93 95 96 O2 Delivery Ventilator Ventilator Ventilator 07/24/19 07/24/19 07/24/19 07/24/19 04:00 04:00 04:07 05:00 Temp 97.7 97.7 Pulse 58 53 Resp 16 16 B/P (MAP) 126/46 (72) 121/47 (71) Pulse Ox 96 100 96 O2 Delivery Mechanical Ventilator Ventilator Ventilator Ventilator 07/24/19 07/24/19 07/24/19 07/24/19 06:00 06:09 07:00 07:29 Pulse 74 76 Resp 16 23 B/P (MAP) 155/56 (89) 155/64 (94) Pulse Ox 95 95 99 95 O2 Delivery Ventilator Ventilator Ventilator Ventilator 07/24/19 07/24/19 07/24/19 07/24/19 08:00 08:00 08:00 08:35 Temp 99.7 99.7 Pulse 98 102 89 Resp 22 B/P (MAP) 189/76 (113) 212/65 (114) 148/59 Pulse Ox 100 O2 Delivery Ventilator Mechanical Ventilator 07/24/19 07/24/19 07/24/19 07/24/19 08:35 09:00 09:09 10:00 Pulse 98 88 77 Resp 19 23 B/P (MAP) 189/76 149/60 (89) 141/62 (88) Pulse Ox 99 99 100 O2 Delivery Ventilator Ventilator Ventilator Intake and Output 07/23/19 07/23/19 07/24/19 15:00 23:00 07:00 Intake Total 400 ml 1761 ml 2961.7 ml Output Total 970 ml 1147 ml 430 ml Balance -570 ml 614 ml 2531.7 ml RICK CAROLINA MD July 24, 2019 11:06
--- NOTE | 2019-07-24 11:45 | PDOC ---
SUBJECTIVE ROS DONTAE/ ATN Patient remains intubated sedated on the vent currently OBJECTIVE Vital Signs Vital Signs Date Time Temp Pulse Resp B/P (MAP) Pulse Ox O2 Delivery O2 Flow Rate FiO2 07/24/19 11:36 100 Ventilator 07/24/19 11:00 82 16 118/56 (76) 07/24/19 08:00 99.7 99.7 I & 0 Intake and Output 07/24/19 07:00 Intake Total 5122.7 ml Output Total 2547 ml Balance 2575.7 ml Intake Oral 100 ml IV Total 1243.7 ml Tube Feeding 3179 ml Other 600 ml Output Urine Total 2547 ml Gastric Drainage Total 0 ml # Bowel Movements 1 PHYSICAL EXAM Physical Exam GEN: Sedated intubated on the vent EYES: Sclera anicteric, Conjunctiva Normal EN: No EN Drainage, Mucous Membranes moist, orally intubated NECK: No visible JVD, or JVP, Supple, no thyromegaly, thick neck CVS: S1S2, no obvious murmur, No Gallop, No Rub, +1 edema bilaterally RESP: Rare basal Rales, no rhonchi, no Acc. Muscle Use GI: BS + ve, NO Bruit, Non Tender, Non Distended, obese abdomen : No CVA tenderness, no suprapubic Tenderness DIAGNOSIS/ASSESSMENT Assessment & Plan DONTAE/ATN especially postcode/possible contrast nephropathy. current fluid and E-lyte status does not necessitate emergent need for dialysis. Will re-evaluate for dialysis in the am. Creatinine has been stable in the1.8 - 2.0 range of late. Continue to watch as long as fluid balance and respiratory status is acceptable. Underlying chronic renal insufficiency cannot be ruled out here after HyperNatremia-appears to be gradually improving with increased free water with TF . Low potassium: Replacement protocol as ordered Acute on chronic respiratory failure with a/c CHF/Pneumonia ; intubated on the vent currently. Defer further management to cardiology and pulmonary. Acute on chronic systolic CHF- per Cardiology Severe cardiomyopathy; LVEF reportedly improved per cardiology note. COMMENT/RELEVANT DATA Meds Current Medications Medications (Trade) Dose Ordered Sig/Chance Start Time Stop Time Status Last Admin Dose Admin Acetaminophen (Tylenol) 650 mg PRN Q6HRS PRN 07/17/19 10:30 Alprazolam (Xanax) 1 mg BID 07/17/19 21:00 07/24/19 08:34 1 MG Amino Acids/ Glycerin/ Electrolytes 1,000 ml @ 50 mls/hr Q20H 07/23/19 13:15 07/23/19 17:04 DC Amiodarone HCl (Cordarone) 200 mg 1X ONCE 07/21/19 15:15 07/21/19 15:16 DC 07/21/19 15:38 200 MG Amiodarone HCl 150 mg/Dextrose 103 ml @ 618 mls/hr 1X ONCE 07/19/19 12:00 07/19/19 12:09 DC 07/19/19 12:15 618 MLS/HR Amiodarone HCl 450 mg/Dextrose 259 ml @ 0 mls/hr CONT PRN 07/20/19 10:00 Cancel Apixaban (Eliquis) 5 mg BID 07/17/19 21:00 07/23/19 10:05 DC 07/23/19 08:17 5 MG Aspirin (Aspirin Chewable) 81 mg [id number] 07/20/19 08:00 07/24/19 08:36 81 MG Aspirin (Aspirin Rectal Supp) 300 mg 1X ONCE 07/17/19 05:45 07/17/19 05:46 DC 07/17/19 06:01 300 MG Atropine Sulfate (ATROPINE 0.5mg SYRINGE) 0.5 mg PRN Q5MIN PRN 07/17/19 11:00 Bumetanide (Bumex) 1 mg 1X ONCE 07/17/19 06:00 07/17/19 06:01 DC 07/17/19 06:00 1 MG Desmopressin Acetate (Ddavp) 4 mcg BID 07/22/19 14:00 07/23/19 09:01 DC 07/23/19 10:20 4 MCG Dexmedetomidine HCl 400 mcg/ Sodium Chloride 100 ml @ 0 mls/hr CONT PRN 07/17/19 11:00 07/20/19 13:31 8.5 MLS/HR Dextrose 1,000 ml @ 75 mls/hr [id number] 07/23/19 17:00 07/24/19 11:06 DC 07/23/19 17:09 75 MLS/HR Digoxin (Lanoxin) 250 mcg 1X ONCE 07/19/19 04:10 07/19/19 06:15 DC 07/19/19 04:15 250 MCG Epinephrine HCl (EPINEPHrine SYRINGE) 4 mg STK-MED ONCE 07/18/19 16:08 07/19/19 16:08 DC Epinephrine HCl 5 mg/Sodium Chloride 255 ml @ 32.926 mls/ hr CONT PRN 07/18/19 14:00 07/24/19 11:06 DC Etomidate (Amidate) 20 mg 1X ONCE 07/17/19 04:45 07/17/19 04:46 DC 07/17/19 04:43 20 MG Furosemide (Lasix) 40 mg [id number] 07/23/19 14:00 07/24/19 08:36 40 MG Heparin Sodium (Porcine) (Heparin Sodium) 7,000 unit 1X ONCE 07/18/19 14:45 07/18/19 14:52 DC 07/18/19 14:45 7,000 UNIT Heparin Sodium/ Sodium Chloride 500 ml @ As Directed STK-MED ONCE 07/18/19 15:11 07/18/19 15:11 DC Heparin Sodium/ Sodium Chloride (HEPARIN for ARTERIAL LINE FLUSH) 1,000 unit 1X ONCE 07/18/19 14:45 07/18/19 14:52 DC 07/18/19 14:45 1,000 UNIT Info (Anti-Coagulation Monitoring By Pharmacy) 1 each PRN DAILY PRN 07/18/19 08:00 07/20/19 14:42 1 EACH Info (Tpn Per Pharmacy) 1 each PRN DAILY PRN 07/22/19 08:45 Cancel Insulin Human Lispro (HumaLOG) 0-6 UNITS Q6HRS 07/17/19 12:00 07/23/19 10:06 DC Iodixanol (Visipaque 320) 100 ml 1X ONCE 07/18/19 14:45 07/18/19 14:52 DC 07/18/19 14:45 104 ML Lansoprazole (Prevacid) 30 mg DAILY 07/18/19 09:00 07/24/19 08:35 30 MG Lidocaine HCl (Lidocaine 1% 20ml Vial) 20 ml 1X ONCE 07/18/19 14:45 07/18/19 14:52 DC 07/18/19 14:45 10 ML Lidocaine HCl (Lidocaine HCl 2% Abboject) 80 mg 1X ONCE 07/20/19 10:00 07/20/19 10:03 DC 07/20/19 10:11 80 MG Lidocaine HCl (Xylocaine-Mpf 1% 2ml Vial) 2 ml STK-MED ONCE 07/18/19 13:05 07/18/19 13:05 DC Lidocaine HCl/ Dextrose 500 ml @ 0 mls/hr CONT PRN 07/20/19 10:00 07/21/19 15:07 DC 07/20/19 10:15 15 MLS/HR Linezolid/Dextrose 300 ml @ 300 mls/hr Q12HR 07/18/19 09:00 07/20/19 08:25 DC 07/19/19 21:29 300 MLS/HR Magnesium Hydroxide (Milk Of Magnesia) 2,400 mg PRN DAILY PRN 07/17/19 10:30 Magnesium Sulfate 50 ml @ 25 mls/hr PRN DAILY PRN 07/23/19 13:15 Magnesium Sulfate/ Dextrose 100 ml @ 100 mls/hr 1X ONCE 07/20/19 09:45 07/20/19 10:44 DC 07/20/19 11:43 100 MLS/HR Metolazone (Zaroxolyn) 2.5 mg QODAY 07/19/19 09:00 07/18/19 10:36 DC Metoprolol Tartrate (Lopressor) 12.5 mg Q12HR 07/23/19 21:00 07/24/19 08:35 12.5 MG Midazolam HCl 100 ml @ 0 mls/hr CONT PRN 07/17/19 07:15 07/22/19 23:41 5 MLS/HR Milrinone Lactate/ Dextrose 100 ml @ 0 mls/hr CONT PRN 07/18/19 07:15 07/23/19 10:03 DC 07/20/19 02:37 4.2 MLS/HR Morphine Sulfate 30 ml @ 0 mls/hr CONT PRN PRN 07/18/19 12:45 07/23/19 18:52 2 MLS/HR Morphine Sulfate (Morphine Sulfate) 4 mg PRN Q1HR PRN 07/17/19 11:15 07/18/19 13:53 4 MG Nitroglycerin (Nitrostat) 0.4 mg 1X ONCE 07/17/19 04:30 07/17/19 04:43 DC 07/17/19 04:29 0.4 MG Nitroglycerin/ Dextrose 250 ml @ 1.5 mls/hr CONT PRN 07/24/19 08:00 07/24/19 08:05 1.5 MLS/HR Norepinephrine Bitartrate 32 mg/ Dextrose 282 ml @ 0 mls/hr CONT PRN 07/18/19 11:15 07/23/19 10:05 DC 07/19/19 10:39 9 MLS/HR Norepinephrine Bitartrate 8 mg/ Dextrose 258 ml @ 0 mls/hr CONT PRN 07/17/19 06:30 07/18/19 13:40 DC 07/17/19 21:52 11 MLS/HR Ondansetron HCl (Zofran) 4 mg PRN Q8HRS PRN 07/17/19 06:00 07/18/19 05:59 DC Piperacillin Sod/ Tazobactam Sod 2.25 gm/Sodium Chloride 50 ml @ 100 mls/hr Q6HRS 07/17/19 18:00 07/22/19 08:47 DC 07/22/19 05:46 100 MLS/HR Piperacillin Sod/ Tazobactam Sod 3.375 gm/Sodium Chloride 50 ml @ 100 mls/hr Q6HRS 07/22/19 12:00 07/24/19 06:33 100 MLS/HR Piperacillin Sod/ Tazobactam Sod 4.5 gm/Sodium Chloride 100 ml @ 200 mls/hr 1X ONCE 07/17/19 06:00 07/17/19 06:29 DC 07/17/19 11:14 200 MLS/HR Potassium Bicarbonate (Potassium Effervescent Tablet) 40 meq 1X ONCE 07/23/19 10:15 07/23/19 10:16 DC 07/23/19 12:49 40 MEQ Potassium Chloride/Water 100 ml @ 50 mls/hr PRN Q2HR PRN 07/23/19 13:15 Potassium Chloride (Klor-Con) 40 meq 1X ONCE 07/24/19 11:00 07/24/19 11:04 DC Propofol 100 ml @ 0 mls/hr CONT PRN 07/17/19 05:15 07/24/19 09:49 8.3 MLS/HR Rocuronium Waldron (Zemuron) 50 mg 1X ONCE 07/17/19 04:45 07/17/19 04:46 DC 07/17/19 04:44 50 MG Sodium Chloride 90 meq/Potassium Chloride 50 meq/ Potassium Phosphate 13.6 mmol/Magnesium Sulfate 10 meq/ Calcium Gluconate 10 meq/ Multivitamins 10 ml/Chromium/ Copper/Manganese/ Seleni/Zn 1 ml/ Total Parenteral Nutrition/Amino Acids/Dextrose/ Fat Emulsion Intravenous 1,512 ml @ 63 mls/hr TPN CONT 07/21/19 22:00 07/22/19 09:05 DC Ticagrelor (Brilinta) 90 mg 1X ONCE 07/19/19 17:00 07/19/19 17:07 DC 07/19/19 17:28 90 MG Vancomycin HCl (Vanco Per Pharmacy) 1 each PRN DAILY PRN 07/17/19 06:00 07/17/19 10:41 DC 07/17/19 06:43 1 EACH Vancomycin HCl (Vancomycin Trough Level) 1 each 1X ONCE 07/19/19 06:00 07/19/19 06:01 Cancel Vancomycin HCl 1.75 gm/Sodium Chloride 500 ml @ 250 mls/hr Q24H 07/18/19 06:30 07/17/19 10:38 DC Vancomycin HCl 2 gm/Sodium Chloride 500 ml @ 250 mls/hr 1X ONCE 07/17/19 06:00 07/17/19 07:59 DC 07/17/19 06:15 250 MLS/HR Vecuronium Waldron (Norcuron Bolus) 20 mg STK-MED ONCE 07/18/19 12:00 07/19/19 08:48 DC Lab Laboratory Tests Test 07/23/19 18:50 07/24/19 06:00 07/24/19 06:11 Potassium Level 3.5 mmol/L (3.5-5.1) 3.3 mmol/L (3.5-5.1) White Blood Count 5.2 x10^3/uL (4.0-11.0) Red Blood Count 3.93 x10^6/uL (4.30-5.70) Hemoglobin 11.6 g/dL (13.0-17.5) Hematocrit 35.1 % (39.0-53.0) Mean Corpuscular Volume 89 fL (79-100) Mean Corpuscular Hemoglobin 29 pg (25-35) Mean Corpuscular Hemoglobin Concent 33 g/dL (31-37) Red Cell Distribution Width 16.5 % (11.5-14.5) Platelet Count 127 x10^3/uL (140-400) Neutrophils (%) (Auto) 74 % (31-73) Lymphocytes (%) (Auto) 12 % (24-48) Monocytes (%) (Auto) 9 % (0-9) Eosinophils (%) (Auto) 4 % (0-3) Basophils (%) (Auto) 1 % (0-3) Neutrophils # (Auto) 3.9 x10^3/uL (1.8-7.7) Lymphocytes # (Auto) 0.6 x10^3/uL (1.0-4.8) Monocytes # (Auto) 0.5 x10^3/uL (0.0-1.1) Eosinophils # (Auto) 0.2 x10^3/uL (0.0-0.7) Basophils # (Auto) 0.0 x10^3/uL (0.0-0.2) Sodium Level 147 mmol/L (136-145) Chloride Level 110 mmol/L (98-107) Carbon Dioxide Level 28 mmol/L (21-32) Anion Gap 9 (6-14) Blood Urea Nitrogen 60 mg/dL (8-26) Creatinine 1.9 mg/dL (0.7-1.3) Estimated GFR (Cockcroft-Gault) 34.9 Glucose Level 132 mg/dL (70-99) Calcium Level 7.7 mg/dL (8.5-10.1) Magnesium Level 2.0 mg/dL (1.8-2.4) Glucose (Fingerstick) 122 mg/dL (70-99) Results All relevant outside records, renal labs, imaging studies, telemetry/EKG's were reviewed. KAROLINA DORSEY MD July 24, 2019 11:45
[2019-07-24] MEDS ORDERED: POTASSIUM BICARB 20 MEQ EFFERVESCENT TABLET. PO ONE (12:00)
--- NOTE | 2019-07-24 12:39 | RAD ---
Single view chest dated 07/24/2019. Comparison made to study dated same day. CLINICAL INDICATION: Confirm tube placement. FINDINGS: Single upright portable exam performed. Endotracheal tube tip at mid trachea, unchanged. Left internal jugular catheter with tip projected to the brachiocephalic vein-SVC junction, stable. There is an NG tube with tip extending to the left upper quadrant, not included on the study. Postsurgical changes of the lower cervical spine. Heart size is mildly enlarged, stable. There is patchy perihilar and bibasilar airspace disease, mildly improved. Blunting of the costophrenic sulci, unchanged. No pneumothorax. IMPRESSION: 1. Mild improvement in bilateral airspace disease. 2. Bilateral pleural effusions, unchanged. 3. Tubes and lines as described. Electronically signed by: Jimenez [place] MD (07/24/2019 12:36 PM) [facility] [place]
[2019-07-24] MEDS: MORPHINE SULFATE 30 ML IV PRN (12:52)
--- NOTE | 2019-07-24 13:01 | PDOC ---
PROGRESS NOTES Subjective Subjective Patient seen and examined Objective Objective Vital Signs Date Time Temp Pulse Resp B/P (MAP) Pulse Ox O2 Delivery O2 Flow Rate FiO2 07/24/19 12:52 100 15.0 07/24/19 12:00 79 124/56 (78) 07/24/19 12:00 Mechanical Ventilator 07/24/19 12:00 100.6 16 100.6 Intake and Output 07/24/19 07:00 Intake Total 5122.7 ml Output Total 2547 ml Balance 2575.7 ml Intake Oral 100 ml IV Total 1243.7 ml Tube Feeding 3179 ml Other 600 ml Output Urine Total 2547 ml Gastric Drainage Total 0 ml # Bowel Movements 1 Physical Exam Abdomen: Normal bowel sounds Heart: Regular rate General: Other (Remains on a ventilator but alert) Lungs: Other (Mildly decreased breath sounds) Assessment Assessment Problems Medical Problems: (1) Acute exacerbation of CHF (congestive heart failure) Status: Acute (2) Acute on chronic renal insufficiency Status: Acute (3) Elevated troponin I level Status: Acute (4) Septic shock Status: Acute (5) Suspected COVID-19 virus infection Status: Acute Acute on chronic respiratory failure with a/c CHF, PNA; remains intubated but may be weaned off today.. COVID negative. Acute on chronic systolic CHF: Blood pressure elevated during weaning episodes. We will continue present treatment and monitor. ICM/NICM; EF better at 40-45% CAD; s/p PCI/DARSHAN to the RCA Septic shock; as per ID DONTAE on CKD; cardiorenal syndrome. Followed by renal. Arrhythmia: noted with PAFIB/RVR and polymorphic VT. Rhythm continues to improv e. Comment Review of Relevant I have reviewed the following items juan (where applicable) has been applied. Labs Laboratory Tests Test 07/22/19 18:18 07/22/19 23:39 07/23/19 05:40 07/23/19 05:49 Glucose (Fingerstick) 101 mg/dL (70-99) 96 mg/dL (70-99) 106 mg/dL (70-99) White Blood Count 4.9 x10^3/uL (4.0-11.0) Red Blood Count 3.84 x10^6/uL (4.30-5.70) Hemoglobin 11.3 g/dL (13.0-17.5) Hematocrit 34.2 % (39.0-53.0) Mean Corpuscular Volume 89 fL (79-100) Mean Corpuscular Hemoglobin 30 pg (25-35) Mean Corpuscular Hemoglobin Concent 33 g/dL (31-37) Red Cell Distribution Width 16.7 % (11.5-14.5) Platelet Count 103 x10^3/uL (140-400) Neutrophils (%) (Auto) 77 % (31-73) Lymphocytes (%) (Auto) 11 % (24-48) Monocytes (%) (Auto) 8 % (0-9) Eosinophils (%) (Auto) 3 % (0-3) Basophils (%) (Auto) 1 % (0-3) Neutrophils # (Auto) 3.8 x10^3/uL (1.8-7.7) Lymphocytes # (Auto) 0.5 x10^3/uL (1.0-4.8) Monocytes # (Auto) 0.4 x10^3/uL (0.0-1.1) Eosinophils # (Auto) 0.2 x10^3/uL (0.0-0.7) Basophils # (Auto) 0.0 x10^3/uL (0.0-0.2) Sodium Level 149 mmol/L (136-145) Potassium Level 3.4 mmol/L (3.5-5.1) Chloride Level 113 mmol/L (98-107) Carbon Dioxide Level 27 mmol/L (21-32) Anion Gap 9 (6-14) Blood Urea Nitrogen 63 mg/dL (8-26) Creatinine 1.9 mg/dL (0.7-1.3) Estimated GFR (Cockcroft-Gault) 34.9 Glucose Level 109 mg/dL (70-99) Calcium Level 7.6 mg/dL (8.5-10.1) Magnesium Level 2.0 mg/dL (1.8-2.4) Test 07/23/19 08:00 07/23/19 18:50 07/24/19 06:00 07/24/19 06:11 O2 Saturation 97 % (92-99) Arterial Blood pH 7.43 (7.35-7.45) Arterial Blood pCO2 at Patient Temp 41 mmHg (35-46) Arterial Blood pO2 at Patient Temp 97 mmHg (65-108) Arterial Blood HCO3 27 mmol/L (21-28) Arterial Blood Base Excess 3 mmol/L (-3-3) FiO2 40% Potassium Level 3.5 mmol/L (3.5-5.1) 3.3 mmol/L (3.5-5.1) White Blood Count 5.2 x10^3/uL (4.0-11.0) Red Blood Count 3.93 x10^6/uL (4.30-5.70) Hemoglobin 11.6 g/dL (13.0-17.5) Hematocrit 35.1 % (39.0-53.0) Mean Corpuscular Volume 89 fL (79-100) Mean Corpuscular Hemoglobin 29 pg (25-35) Mean Corpuscular Hemoglobin Concent 33 g/dL (31-37) Red Cell Distribution Width 16.5 % (11.5-14.5) Platelet Count 127 x10^3/uL (140-400) Neutrophils (%) (Auto) 74 % (31-73) Lymphocytes (%) (Auto) 12 % (24-48) Monocytes (%) (Auto) 9 % (0-9) Eosinophils (%) (Auto) 4 % (0-3) Basophils (%) (Auto) 1 % (0-3) Neutrophils # (Auto) 3.9 x10^3/uL (1.8-7.7) Lymphocytes # (Auto) 0.6 x10^3/uL (1.0-4.8) Monocytes # (Auto) 0.5 x10^3/uL (0.0-1.1) Eosinophils # (Auto) 0.2 x10^3/uL (0.0-0.7) Basophils # (Auto) 0.0 x10^3/uL (0.0-0.2) Sodium Level 147 mmol/L (136-145) Chloride Level 110 mmol/L (98-107) Carbon Dioxide Level 28 mmol/L (21-32) Anion Gap 9 (6-14) Blood Urea Nitrogen 60 mg/dL (8-26) Creatinine 1.9 mg/dL (0.7-1.3) Estimated GFR (Cockcroft-Gault) 34.9 Glucose Level 132 mg/dL (70-99) Calcium Level 7.7 mg/dL (8.5-10.1) Magnesium Level 2.0 mg/dL (1.8-2.4) Glucose (Fingerstick) 122 mg/dL (70-99) Laboratory Tests Test 07/23/19 18:50 07/24/19 06:00 07/24/19 06:11 Potassium Level 3.5 mmol/L (3.5-5.1) 3.3 mmol/L (3.5-5.1) White Blood Count 5.2 x10^3/uL (4.0-11.0) Red Blood Count 3.93 x10^6/uL (4.30-5.70) Hemoglobin 11.6 g/dL (13.0-17.5) Hematocrit 35.1 % (39.0-53.0) Mean Corpuscular Volume 89 fL (79-100) Mean Corpuscular Hemoglobin 29 pg (25-35) Mean Corpuscular Hemoglobin Concent 33 g/dL (31-37) Red Cell Distribution Width 16.5 % (11.5-14.5) Platelet Count 127 x10^3/uL (140-400) Neutrophils (%) (Auto) 74 % (31-73) Lymphocytes (%) (Auto) 12 % (24-48) Monocytes (%) (Auto) 9 % (0-9) Eosinophils (%) (Auto) 4 % (0-3) Basophils (%) (Auto) 1 % (0-3) Neutrophils # (Auto) 3.9 x10^3/uL (1.8-7.7) Lymphocytes # (Auto) 0.6 x10^3/uL (1.0-4.8) Monocytes # (Auto) 0.5 x10^3/uL (0.0-1.1) Eosinophils # (Auto) 0.2 x10^3/uL (0.0-0.7) Basophils # (Auto) 0.0 x10^3/uL (0.0-0.2) Sodium Level 147 mmol/L (136-145) Chloride Level 110 mmol/L (98-107) Carbon Dioxide Level 28 mmol/L (21-32) Anion Gap 9 (6-14) Blood Urea Nitrogen 60 mg/dL (8-26) Creatinine 1.9 mg/dL (0.7-1.3) Estimated GFR (Cockcroft-Gault) 34.9 Glucose Level 132 mg/dL (70-99) Calcium Level 7.7 mg/dL (8.5-10.1) Magnesium Level 2.0 mg/dL (1.8-2.4) Glucose (Fingerstick) 122 mg/dL (70-99) Microbiology 07/17/19 Urine Culture - Final, Complete 07/17/19 Urine Culture Result 1 (BOYD) - Final, Complete 07/17/19 Blood Culture - Final, Complete NO GROWTH AFTER 5 DAYS 07/17/19 Nose/Throat Culture - Final, Complete 07/17/19 - Final, Complete Medications Current Medications Nitroglycerin (Nitrostat) 0.4 mg STK-MED ONCE SL ; Start 07/17/19 at 04:28; Stop 07/17/19 at 04:28; Status DC Nitroglycerin (Nitrostat) 0.4 mg 1X ONCE SL Last administered on 07/17/19at 04: 29; Start 07/17/19 at 04:30; Stop 07/17/19 at 04:43; Status DC Nitroglycerin/ Dextrose 250 ml @ 0 mls/hr 1X ONCE IV Last administered on 07/17/19at 04:47; Start 07/17/19 at 04:45; Stop 07/17/19 at 04:46; Status DC Rocuronium Dyer (Zemuron) 50 mg 1X ONCE IV Last administered on 07/17/19at 04:44; Start 07/17/19 at 04:45; Stop 07/17/19 at 04:46; Status DC Etomidate (Amidate) 20 mg 1X ONCE IV Last administered on 07/17/19at 04:43; Start 07/17/19 at 04:45; Stop 07/17/19 at 04:46; Status DC Propofol 100 ml @ 0 mls/hr CONT PRN IV SEE PROTOCOL Last administered on 07/24/19at 09:49; Start 07/17/19 at 05:15 Aspirin (Aspirin Rectal Supp) 300 mg 1X ONCE VA Last administered on 07/17/19at 06:01; Start 07/17/19 at 05:45; Stop 07/17/19 at 05:46; Status DC Bumetanide (Bumex) 1 mg 1X ONCE IV Last administered on 07/17/19at 06:00; Start 07/17/19 at 06:00; Stop 07/17/19 at 06:01; Status DC Piperacillin Sod/ Tazobactam Sod 4.5 gm/Sodium Chloride 100 ml @ 200 mls/hr 1X ONCE IV Last administered on 07/17/19at 11:14; Start 07/17/19 at 06:00; Stop 07/17/19 at 06:29; Status DC Vancomycin HCl (Vanco Per Pharmacy) 1 each PRN DAILY PRN MC SEE COMMENTS Last administered on 07/17/19at 06:43; Start 07/17/19 at 06:00; Stop 07/17/19 at 10:41; Status DC Vancomycin HCl 2 gm/Sodium Chloride 500 ml @ 250 mls/hr 1X ONCE IV Last administered on 07/17/19at 06:15; Start 07/17/19 at 06:00; Stop 07/17/19 at 07:59; Status DC Ondansetron HCl (Zofran) 4 mg PRN Q8HRS PRN IV NAUSEA/VOMITING; Start 07/17/19 at 06:00; Stop 07/18/19 at 05:59; Status DC Norepinephrine Bitartrate 8 mg/ Dextrose 258 ml @ 0 mls/hr CONT PRN IV SEE I/O RECORD Last administered on 07/17/19at 21:52; Start 07/17/19 at 06:30; Stop 07/18/19 at 13:40; Status DC Vancomycin HCl 1.75 gm/Sodium Chloride 500 ml @ 250 mls/hr Q24H IV ; Start 07/18/19 at 06:30; Stop 07/17/19 at 10:38; Status DC Vancomycin HCl (Vancomycin Trough Level) 1 each 1X ONCE MC ; Start 07/19/19 at 06:00; Stop 07/19/19 at 06:01; Status Cancel Morphine Sulfate (Morphine Sulfate) 6 mg 1X ONCE IV Last administered on 07/17/19at 07:08; Start 07/17/19 at 07:15; Stop 07/17/19 at 07:16; Status DC Midazolam HCl 100 ml @ 0 mls/hr CONT PRN IV SEE PROTOCOL Last administered on 07/22/19at 23:41; Start 07/17/19 at 07:15 Morphine Sulfate (Morphine Sulfate) 4 mg PRN Q1HR PRN IV SEE COMMENTS.; Start 07/17/19 at 08:00; Stop 07/17/19 at 10:38; Status DC Heparin Sodium (Porcine) (Heparin Sodium) 5,000 unit Q12HR SQ ; Start 07/17/19 at 21:00; Stop 07/17/19 at 10:38; Status DC Amiodarone HCl (Cordarone) 200 mg DAILY PO Last administered on 07/21/19at 09:04; Start 07/18/19 at 09:00; Stop 07/21/19 at 15:07; Status DC Metolazone (Zaroxolyn) 2.5 mg QODAY PO ; Start 07/19/19 at 09:00; Stop 07/18/19 at 10:36; Status DC Potassium Chloride (Klor-Con) 20 meq BIDWMEALS PO Last administered on 07/17/19at 16:34; Start 07/17/19 at 17:00; Stop 07/18/19 at 10:36; Status DC Furosemide (Lasix) 40 mg [id number] IVP Last administered on 07/18/19at 08:03; Start 07/17/19 at 14:00; Stop 07/20/19 at 11:02; Status DC Morphine Sulfate (Morphine Sulfate) 2 mg PRN Q4HRS PRN IV SEE COMMENTS.; Start 07/17/19 at 10:30; Status Cancel Apixaban (Eliquis) 5 mg BID FT Last administered on 07/23/19at 08:17; Start 07/17/19 at 21:00; Stop 07/23/19 at 10:05; Status DC Insulin Human Lispro (HumaLOG) 0-6 UNITS Q6HRS SQ ; Start 07/17/19 at 12:00; Stop 07/23/19 at 10:06; Status DC Lansoprazole (Prevacid) 30 mg DAILY FT Last administered on 07/24/19at 08:35; Start 07/18/19 at 09:00 Acetaminophen (Tylenol) 650 mg PRN Q6HRS PRN FT MILD PAIN / TEMP > 100.3'F; S tart 07/17/19 at 10:30 Alprazolam (Xanax) 1 mg BID FT Last administered on 07/24/19at 08:34; Start 07/17/19 at 21:00 Magnesium Hydroxide (Milk Of Magnesia) 2,400 mg PRN DAILY PRN FT CONSTIPATION; Start 07/17/19 at 10:30 Dexmedetomidine HCl 400 mcg/ Sodium Chloride 100 ml @ 0 mls/hr CONT PRN IV PER PROTOCOL Last administered on 07/20/19at 13:31; Start 07/17/19 at 11:00 Sodium Chloride 500 ml @ 500 mls/hr 1X PRN PRN IV SEE COMMENTS; Start 07/17/19 at 11:00; Stop 07/22/19 at 12:54; Status DC Atropine Sulfate (ATROPINE 0.5mg SYRINGE) 0.5 mg PRN Q5MIN PRN IV SEE COMMENTS; Start 07/17/19 at 11:00 Morphine Sulfate (Morphine Sulfate) 2 mg PRN Q1HR PRN IV SEE COMMENTS. Last administered on 07/17/19at 13:37; Start 07/17/19 at 11:15 Morphine Sulfate (Morphine Sulfate) 4 mg PRN Q1HR PRN IV SEE COMMENTS. Last administered on 07/18/19at 13:53; Start 07/17/19 at 11:15 Piperacillin Sod/ Tazobactam Sod 2.25 gm/Sodium Chloride 50 ml @ 100 mls/hr Q6HRS IV Last administered on 07/22/19at 05:46; Start 07/17/19 at 18:00; Stop 07/22/19 at 08:47; Status DC Magnesium Sulfate 50 ml @ 25 mls/hr 1X ONCE IV Last administered on 07/18/19at 08:04; Start 07/18/19 at 07:15; Stop 07/18/19 at 09:14; Status DC Milrinone Lactate/ Dextrose 100 ml @ 0 mls/hr CONT PRN IV SEE I/O RECORD Last administered on 07/20/19at 02:37; Start 07/18/19 at 07:15; Stop 07/23/19 at 10:03; Status DC Linezolid/Dextrose 300 ml @ 300 mls/hr Q12HR IV Last administered on 07/19/19at 21:29; Start 07/18/19 at 09:00; Stop 07/20/19 at 08:25; Status DC Info (Anti-Coagulation Monitoring By Pharmacy) 1 each PRN DAILY PRN MC SEE COMMENTS Last administered on 07/20/19at 14:42; Start 07/18/19 at 08:00 Vecuronium Dyer (Norcuron Bolus) 10 mg STK-MED ONCE IV ; Start 07/18/19 at 09:12; Stop 07/18/19 at 09:12; Status DC Potassium Chloride/Water 100 ml @ 100 mls/hr 1X ONCE IV Last administered on 07/18/19at 10:04; Start 07/18/19 at 09:45; Stop 07/18/19 at 10:44; Status DC Magnesium Sulfate 50 ml @ 25 mls/hr 1X ONCE IV Last administered on 07/18/19at 10:03; Start 07/18/19 at 09:45; Stop 07/18/19 at 11:44; Status DC Norepinephrine Bitartrate 32 mg/ Dextrose 282 ml @ 0 mls/hr CONT PRN IV SEE I/O RECORD Last administered on 07/19/19at 10:39; Start 07/18/19 at 11:15; Stop 07/23/19 at 10:05; Status DC Morphine Sulfate 30 ml @ 0 mls/hr CONT PRN PRN IV PER PROTOCOL Last administered on 07/24/19at 12:52; Start 07/18/19 at 12:45 Lidocaine HCl (Xylocaine-Mpf 1% 2ml Vial) 2 ml STK-MED ONCE .ROUTE ; Start 07/18/19 at 13:05; Stop 07/18/19 at 13:05; Status DC Iodixanol (Visipaque 320) 100 ml STK-MED ONCE .ROUTE ; Start 07/18/19 at 13:05; Stop 07/18/19 at 13:06; Status DC Heparin Sodium/ Sodium Chloride 1,500 ml @ As Directed STK-MED ONCE .ROUTE ; Start 07/18/19 at 13:05; Stop 07/18/19 at 13:06; Status DC Vecuronium Dyer (Norcuron Bolus) 10 mg STK-MED ONCE IV ; Start 07/18/19 at 13:49; Stop 07/18/19 at 13:49; Status DC Vecuronium Dyer (Norcuron Bolus) 6 mg PRN Q4HRS PRN IV ANXIETY / AGITATION; Start 07/18/19 at 14:00 Epinephrine HCl 5 mg/Sodium Chloride 255 ml @ 32.926 mls/ hr CONT PRN IV SEE I/O RECORD; Start 07/18/19 at 14:00; Stop 07/24/19 at 11:06; Status DC Lidocaine HCl (Lidocaine 1% 20ml Vial) 20 ml STK-MED ONCE .ROUTE ; Start 07/18/19 at 14:11; Stop 07/18/19 at 14:11; Status DC Heparin Sodium (Porcine) (Heparin Sodium) 10,000 unit STK-MED ONCE .ROUTE ; Start 07/18/19 at 14:27; Stop 07/18/19 at 14:28; Status DC Heparin Sodium/ Sodium Chloride (HEPARIN for ARTERIAL LINE FLUSH) 1,000 unit 1X ONCE IART Last administered on 07/18/19at 14:45; Start 07/18/19 at 14:45; Stop 07/18/19 at 14:52; Status DC Heparin Sodium/ Sodium Chloride (HEPARIN for ARTERIAL LINE FLUSH) 1,000 unit 1X ONCE IART Last administered on 07/18/19at 14:45; Start 07/18/19 at 14:45; Stop 07/18/19 at 14:52; Status DC Iodixanol (Visipaque 320) 100 ml 1X ONCE IART Last administered on 07/18/19at 14:45; Start 07/18/19 at 14:45; Stop 07/18/19 at 14:52; Status DC Heparin Sodium (Porcine) (Heparin Sodium) 7,000 unit 1X ONCE IV Last administered on 07/18/19at 14:45; Start 07/18/19 at 14:45; Stop 07/18/19 at 14:52; Status DC Lidocaine HCl (Lidocaine 1% 20ml Vial) 20 ml 1X ONCE INJ Last administered on 07/18/19at 14:45; Start 07/18/19 at 14:45; Stop 07/18/19 at 14:52; Status DC Heparin Sodium/ Sodium Chloride 500 ml @ As Directed STK-MED ONCE .ROUTE ; Sta rt 07/18/19 at 15:11; Stop 07/18/19 at 15:11; Status DC Ticagrelor (Brilinta) 180 mg 1X ONCE PO Last administered on 07/18/19at 16:08; Start 07/18/19 at 16:00; Stop 07/18/19 at 16:01; Status DC Digoxin (Lanoxin) 250 mcg 1X ONCE IV ; Start 07/19/19 at 06:15; Stop 07/19/19 at 06:16; Status Cancel Digoxin (Lanoxin) 250 mcg 1X ONCE IV Last administered on 07/19/19at 05:15; Start 07/19/19 at 05:15; Stop 07/19/19 at 06:11; Status DC Digoxin (Lanoxin) 250 mcg 1X ONCE IV Last administered on 07/19/19at 08:48; Start 07/19/19 at 09:00; Stop 07/19/19 at 09:01; Status DC Digoxin (Lanoxin) 250 mcg 1X ONCE IV Last administered on 07/19/19at 04:15; Start 07/19/19 at 04:10; Stop 07/19/19 at 06:15; Status DC Vecuronium Dyer (Norcuron Bolus) 20 mg STK-MED ONCE IV ; Start 07/18/19 at 12:00; Stop 07/19/19 at 08:48; Status DC Potassium Chloride/Water 100 ml @ 100 mls/hr 1X ONCE IV Last administered on 07/19/19at 12:13; Start 07/19/19 at 11:45; Stop 07/19/19 at 12:44; Status DC Amiodarone HCl 150 mg/Dextrose 103 ml @ 618 mls/hr 1X ONCE IV Last administered on 07/19/19at 12:15; Start 07/19/19 at 12:00; Stop 07/19/19 at 12:09; Status DC Metoprolol Tartrate (Lopressor) 12.5 mg Q6HRS PO Last administered on 07/23/19at 05:54; Start 07/19/19 at 12:00; Stop 07/23/19 at 10:05; Status DC Amiodarone HCl (Cordarone) 300 mg STK-MED ONCE .ROUTE ; Start 07/18/19 at 16:08; Stop 07/19/19 at 16:08; Status DC Epinephrine HCl (EPINEPHrine SYRINGE) 4 mg STK-MED ONCE .ROUTE ; Start 07/18/19 at 16:08; Stop 07/19/19 at 16:08; Status DC Aspirin (Aspirin Chewable) 81 mg 1X ONCE PO Last administered on 07/19/19at 17:28; Start 07/19/19 at 17:00; Stop 07/19/19 at 17:06; Status DC Aspirin (Aspirin Chewable) 81 mg [id number] PO Last administered on 07/24/19at 08:36; Start 07/20/19 at 08:00 Ticagrelor (Brilinta) 90 mg BID PO Last administered on 07/24/19at 08:36; Start 07/20/19 at 09:00 Ticagrelor (Brilinta) 90 mg 1X ONCE PO Last administered on 07/19/19at 17:28; Start 07/19/19 at 17:00; Stop 07/19/19 at 17:07; Status DC Info (Tpn Per Pharmacy) 1 each PRN DAILY PRN MC SEE COMMENTS Last administered on 07/21/19at 11:58; Start 07/19/19 at 17:00; Stop 07/21/19 at 19:42; Status DC Magnesium Sulfate/ Dextrose 100 ml @ 100 mls/hr 1X ONCE IV Last administered on 07/20/19at 09:40; Start 07/20/19 at 09:45; Stop 07/20/19 at 10:44; Status DC Magnesium Sulfate/ Dextrose 100 ml @ 100 mls/hr 1X ONCE IV Last administered on 07/20/19at 11:43; Start 07/20/19 at 09:45; Stop 07/20/19 at 10:44; Status DC Potassium Chloride/Water 100 ml @ 100 mls/hr Q1H IV Last administered on 07/20/19at 15:45; Start 07/20/19 at 09:45; Stop 07/20/19 at 13:44; Status DC Amiodarone HCl 450 mg/Dextrose 259 ml @ 0 mls/hr CONT PRN IV SEE I/O RECORD; Start 07/20/19 at 10:00; Status Cancel Lidocaine HCl (Lidocaine HCl 2% Abboject) 80 mg 1X ONCE IV Last administered on 07/20/19at 10:11; Start 07/20/19 at 10:00; Stop 07/20/19 at 10:03; Status DC Lidocaine HCl/ Dextrose 500 ml @ 0 mls/hr CONT PRN IV SEE I/O RECORD Last administered on 07/20/19at 10:15; Start 07/20/19 at 10:00; Stop 07/21/19 at 15:07; Status DC Furosemide (Lasix) 40 mg DAILY IVP Last administered on 07/22/19at 09:03; Start 07/21/19 at 09:00; Stop 07/22/19 at 12:54; Status DC Sodium Chloride 90 meq/Potassium Chloride 50 meq/ Potassium Phosphate 13.6 mmol/Magnesium Sulfate 10 meq/ Calcium Gluconate 10 meq/ Multivitamins 10 ml/Chromium/ Copper/Manganese/ Seleni/Zn 1 ml/ Total Parenteral Nutrition/Amino Acids/Dextrose/ Fat Emulsion Intravenous 1,512 ml @ 63 mls/hr TPN CONT IV Last administered on 07/20/19at 22:01; Start 07/20/19 at 22:00; Stop 07/21/19 at 21:59; Status DC Sodium Chloride 90 meq/Potassium Chloride 50 meq/ Potassium Phosphate 13.6 mmol/Magnesium Sulfate 10 meq/ Calcium Gluconate 10 meq/ Multivitamins 10 ml/Chromium/ Copper/Manganese/ Seleni/Zn 1 ml/ Total Parenteral Nutrition/Amino Acids/Dextrose/ Fat Emulsion Intravenous 1,512 ml @ 63 mls/hr TPN CONT IV ; Start 07/21/19 at 22:00; Stop 07/22/19 at 09:05; Status DC Potassium Chloride (Klor-Con) 40 meq 1X ONCE PO Last administered on 07/21/19at 15:38; Start 07/21/19 at 14:30; Stop 07/21/19 at 14:33; Status DC Amiodarone HCl (Cordarone) 400 mg DAILY PO Last administered on 07/24/19at 08:35; Start 07/22/19 at 09:00 Amiodarone HCl (Cordarone) 200 mg 1X ONCE PO Last administered on 07/21/19at 15:38; Start 07/21/19 at 15:15; Stop 07/21/19 at 15:16; Status DC Info (Tpn Per Pharmacy) 1 each PRN DAILY PRN MC SEE COMMENTS; Start 07/22/19 at 08:45; Status Cancel Piperacillin Sod/ Tazobactam Sod 3.375 gm/Sodium Chloride 50 ml @ 100 mls/hr Q6HRS IV Last administered on 07/24/19at 11:49; Start 07/22/19 at 12:00 Potassium Chloride (Klor-Con) 40 meq 1X ONCE PO Last administered on 07/22/19at 12:03; Start 07/22/19 at 11:45; Stop 07/22/19 at 11:47; Status DC Desmopressin Acetate (Ddavp) 4 mcg BID SQ Last administered on 07/23/19at 10:20; Start 07/22/19 at 14:00; Stop 07/23/19 at 09:01; Status DC Metoprolol Tartrate (Lopressor) 12.5 mg Q12HR PO Last administered on 07/24/19at 08:35; Start 07/23/19 at 21:00 Potassium Bicarbonate (Potassium Effervescent Tablet) 40 meq 1X ONCE PO Last administered on 07/23/19at 12:49; Start 07/23/19 at 10:15; Stop 07/23/19 at 10:16; Status DC Magnesium Sulfate 50 ml @ 25 mls/hr PRN DAILY PRN IV for Mag < 1.7 on am labs; Start 07/23/19 at 13:15 Potassium Chloride/Water 100 ml @ 50 mls/hr PRN Q6HRS PRN IV For K < 3.7; Start 07/23/19 at 13:15 Potassium Chloride/Water 100 ml @ 50 mls/hr PRN Q2HR PRN IV total of 40mEq for K < 3.5; Start 07/23/19 at 13:15 Amino Acids/ Glycerin/ Electrolytes 1,000 ml @ 50 mls/hr Q20H IV ; Start 07/23/19 at 13:15; Stop 07/23/19 at 17:04; Status DC Furosemide (Lasix) 40 mg [id number] IVP Last administered on 07/24/19at 08:36; Start 07/23/19 at 14:00 Dextrose 1,000 ml @ 75 mls/hr [id number] IV Last administered on 07/23/19at 17:09; Start 07/23/19 at 17:00; Stop 07/24/19 at 11:06; Status DC Nitroglycerin/ Dextrose 250 ml @ 1.5 mls/hr CONT PRN IV SEE I/O RECORD Last administered on 07/24/19at 08:05; Start 07/24/19 at 08:00 Potassium Chloride (Klor-Con) 40 meq 1X ONCE PO ; Start 07/24/19 at 11:00; Stop 07/24/19 at 11:04; Status DC Potassium Bicarbonate (Potassium Effervescent Tablet) 40 meq 1X ONCE PO Last administered on 07/24/19at 11:54; Start 07/24/19 at 12:00; Stop 07/24/19 at 12:01; Status DC Active Scripts Active Toprol XL (Metoprolol Succinate) 50 Mg Tab.er.24h 50 Mg PO DAILY Metolazone 2.5 Mg Tablet 2.5 Mg PO QODAY Furosemide 40 Mg Tablet 40 Mg PO [id number] Klor-Con M20 (Potassium Chloride) 20 Meq Tab.er.prt 20 Meq PO BIDWMEALS Amiodarone Hcl 200 Mg Tablet 200 Mg PO DAILY Eliquis (Apixaban) 5 Mg Tablet 5 Mg PO BID Reported Acetaminophen 325 Mg Tablet 325 Mg PO Q6HRS Dicyclomine Hcl 10 Mg Capsule 1 Cap PO PRN TID PRN Nexium Capsule (Esomeprazole Magnesium) 40 Mg Capsule.dr 40 Mg PO DAILYAC Oxycodone Hcl Immed.release (Oxycodone Hcl) 15 Mg Tablet 15 Mg PO PRN Q12HR PRN Alprazolam 1 Mg Tablet 1 Tab PO BID Vitals/I & O Vital Sign - Last 24 Hours 07/23/19 07/23/19 07/23/19 07/23/19 13:00 14:00 15:00 15:30 Pulse 58 56 52 Resp 16 16 16 B/P (MAP) 91/44 (60) 104/46 (65) 100/46 (64) Pulse Ox 98 99 99 98 O2 Delivery Ventilator Ventilator Ventilator Ventilator 07/23/19 07/23/19 07/23/19 07/23/19 16:00 16:00 16:00 17:00 Temp 97.7 97.7 Pulse 52 62 54 Resp 16 16 B/P (MAP) 102/46 (64) 112/50 (70) Pulse Ox 99 100 O2 Delivery Ventilator Mechanical Ventilator Ventilator 07/23/19 07/23/19 07/23/19 07/23/19 18:00 18:52 19:00 19:22 Pulse 55 54 Resp 16 16 16 16 B/P (MAP) 113/48 (69) 100/42 (61) Pulse Ox 96 98 98 O2 Delivery Ventilator Ventilator Ventilator Ventilator 07/23/19 07/23/19 07/23/19 07/23/19 20:00 20:00 20:00 20:34 Temp 97.7 97.7 Pulse 56 51 Resp 16 B/P (MAP) 100/52 (68) 115/47 (69) Pulse Ox 99 100 O2 Delivery Mechanical Ventilator Ventilator Ventilator 5/20 5/ 5/ 5 21:00 22:00 23:00 23:02 Pulse 52 53 54 55 Resp 16 16 16 B/P (MAP) 124/54 (77) 115/46 (69) 105/42 107/43 (64) Pulse Ox 95 98 99 O2 Delivery Ventilator Ventilator Ventilator 07/23/19 5/ 5// 5 23:59 00:00 00:01 00:51 Temp 98.2 98.2 Pulse 54 51 Resp 16 B/P (MAP) 115/46 (69) 113/45 (67) Pulse Ox 91 100 O2 Delivery Mechanical Ventilator Ventilator Ventilator 07/23/ 5/ 5// 5 01:00 02:00 03:00 04:00 Pulse 53 51 53 56 Resp 16 16 16 B/P (MAP) 117/46 (69) 107/41 (63) 121/47 (71) 114/43 (66) Pulse Ox 93 95 96 O2 Delivery Ventilator Ventilator Ventilator 07/23/ 5/ 5//20 5 04:00 04:00 04:07 05:00 Temp 97.7 97.7 Pulse 58 53 Resp 16 16 B/P (MAP) 126/46 (72) 121/47 (71) Pulse Ox 96 100 96 O2 Delivery Mechanical Ventilator Ventilator Ventilator Ventilator 07/23/ 5/ 5// 5 06:00 06:09 07:00 07:29 Pulse 74 76 Resp 16 23 B/P (MAP) 155/56 (89) 155/64 (94) Pulse Ox 95 95 99 95 O2 Delivery Ventilator Ventilator Ventilator Ventilator 07/23/ 5// 5// 5 08:00 08:00 08:00 08:35 Temp 99.7 99.7 Pulse 98 102 89 Resp 22 B/P (MAP) 189/76 (113) 212/65 (114) 148/59 Pulse Ox 100 O2 Delivery Ventilator Mechanical Ventilator 07/23/ 5/ 5//20 5 08:35 09:00 09:09 10:00 Pulse 98 88 77 Resp 19 23 B/P (MAP) 189/76 149/60 (89) 141/62 (88) Pulse Ox 99 99 100 O2 Delivery Ventilator Ventilator Ventilator 07/24/19 07/24/19 07/24/19 07/24/19 11:00 11:36 12:00 12:00 Temp 100.6 100.6 Pulse 82 80 Resp 16 16 B/P (MAP) 118/56 (76) 126/57 (80) Pulse Ox 100 100 100 O2 Delivery Ventilator Ventilator Ventilator Mechanical Ventilator 07/24/19 07/24/19 12:00 12:52 Pulse 79 B/P (MAP) 124/56 (78) Pulse Ox 100 O2 Flow Rate 15.0 Intake and Output 07/23/19 07/23/19 07/24/19 15:00 23:00 07:00 Intake Total 400 ml 1761 ml 2961.7 ml Output Total 970 ml 1147 ml 430 ml Balance -570 ml 614 ml 2531.7 ml JONY OLSON MD July 24, 2019 13:00
[2019-07-25] VITALS (25 sets, daily range): BP systolic 100–194; BP diastolic 43–83
[2019-07-25] MEDS: POTASSIUM CHLORIDE 20MEQ 100 ML IV PRN ×2 (00:41→03:18)
[2019-07-25] MEDS: MORPHINE SULFATE 30 ML IV PRN (02:46)
[2019-07-25] MEDS: PIPERACILLIN/TAZOBACTAM 3.375 GM in IV NORMAL SALINE 50ML 50 ML IV SCH ×3 (05:33→22:10)
[2019-07-25 06:05] LABS: BASO % 1 % (0-3); EOS # 0.2 x10^3/uL (0.0-0.7); EOS % 4 % (0-3); HEMATOCRIT 32.1 % (39.0-53.0); LYMPH # 0.8 x10^3/uL (1.0-4.8); LYMPH % 16 % (24-48); MEAN CORPUSCULAR HEMOGLOBIN 30 pg (25-35); MEAN CORPUSCULAR HGB CONC 34 g/dL (31-37); MEAN CORPUSCULAR VOLUME 88 fL (79-100); MONO # 0.5 x10^3/uL (0.0-1.1); MONO % 11 % (0-9); NEUT # 3.3 x10^3/uL (1.8-7.7); NEUT % 68 % (31-73); PLATELET COUNT 134 x10^3/uL (140-400); RED BLOOD COUNT 3.64 x10^6/uL (4.30-5.70); RED CELL DISTRIBUTION WIDTH 16.3 % (11.5-14.5); WHITE BLOOD COUNT 4.8 x10^3/uL (4.0-11.0)
[2019-07-25 06:20] LABS: CALCIUM 7.7 mg/dL (8.5-10.1); CREATININE 1.8 mg/dL (0.7-1.3); GFR 37.2; MAGNESIUM 1.7 mg/dL (1.8-2.4); POTASSIUM 3.6 mmol/L (3.5-5.1)
[2019-07-25] MEDS: FUROSEMIDE 40 MG/4 ML VIAL. IVP SCH ×2 (08:21→13:12)
[2019-07-25] MEDS: ASPIRIN CHEWABLE 81 MG TABLET. PO SCH (08:21)
[2019-07-25] MEDS: AMIODARONE HCL 200 MG TABLET. PO SCH (08:22)
[2019-07-25] MEDS: METOPROLOL TART IMMED RELEASE 25 MG TABLET. PO SCH ×2 (08:22→22:09)
[2019-07-25] MEDS: TICAGRELOR 90 MG TABLET. PO SCH (08:23)
[2019-07-25] MEDS: ALPRAZolam 0.5 MG TABLET FT SCH ×2 (08:23→22:08)
[2019-07-25] MEDS: LANSOPRAZOLE 30 MG TAB.RAP.DR FT SCH (08:23)
--- NOTE | 2019-07-25 08:34 | PDOC ---
Infectious Disease Note Subjective: Subjective Awake and calm Denies pain Remains intubated/vent. T max 99.6 Tube feedings Awaiting weaning trial Vital Signs: Vital Signs Vital Signs Date Time Temp Pulse Resp B/P (MAP) Pulse Ox O2 Delivery O2 Flow Rate FiO2 07/25/19 08:22 84 180/71 07/25/19 08:00 22 99 Ventilator 07/25/19 07:00 99.1 99.1 07/25/19 00:00 15.0 Physical Exam: PHYSICAL EXAM GENERAL: Awake, orally intubated, calm, + mitts HEENT: HANY. ETT and OG tube in place. NECK: Supple. LUNGS: Clear anteriorly HEART: S1, S2. regular ABDOMEN: Soft, bowel sounds present, no guarding : Antunez in place EXTREMITIES: Trace edema, no cyanosis. DERMATOLOGIC: Warm, dry. No generalized rash. NEUROLOGIC: Alert, responsive LIJ without signs of complications Medications: Inpatient Meds: Current Medications Medications (Trade) Dose Ordered Sig/Chance Start Time Stop Time Status Last Admin Dose Admin Acetaminophen (Tylenol) 650 mg PRN Q6HRS PRN 07/17/19 10:30 Alprazolam (Xanax) 1 mg BID 07/17/19 21:00 07/25/19 08:23 1 MG Amino Acids/ Glycerin/ Electrolytes 1,000 ml @ 50 mls/hr Q20H 07/23/19 13:15 07/23/19 17:04 DC Amiodarone HCl (Cordarone) 200 mg 1X ONCE 07/21/19 15:15 07/21/19 15:16 DC 07/21/19 15:38 200 MG Amiodarone HCl 150 mg/Dextrose 103 ml @ 618 mls/hr 1X ONCE 07/19/19 12:00 07/19/19 12:09 DC 07/19/19 12:15 618 MLS/HR Amiodarone HCl 450 mg/Dextrose 259 ml @ 0 mls/hr CONT PRN 07/20/19 10:00 Cancel Apixaban (Eliquis) 5 mg BID 07/17/19 21:00 07/23/19 10:05 DC 07/23/19 08:17 5 MG Aspirin (Aspirin Chewable) 81 mg [id number] 07/20/19 08:00 07/25/19 08:21 81 MG Aspirin (Aspirin Rectal Supp) 300 mg 1X ONCE 07/17/19 05:45 07/17/19 05:46 DC 07/17/19 06:01 300 MG Atropine Sulfate (ATROPINE 0.5mg SYRINGE) 0.5 mg PRN Q5MIN PRN 07/17/19 11:00 Bumetanide (Bumex) 1 mg 1X ONCE 07/17/19 06:00 07/17/19 06:01 DC 07/17/19 06:00 1 MG Desmopressin Acetate (Ddavp) 4 mcg BID 07/22/19 14:00 07/23/19 09:01 DC 07/23/19 10:20 4 MCG Dexmedetomidine HCl 400 mcg/ Sodium Chloride 100 ml @ 0 mls/hr CONT PRN 07/17/19 11:00 07/20/19 13:31 8.5 MLS/HR Dextrose 1,000 ml @ 75 mls/hr [id number] 07/23/19 17:00 07/24/19 11:06 DC 07/23/19 17:09 75 MLS/HR Digoxin (Lanoxin) 250 mcg 1X ONCE 07/19/19 04:10 07/19/19 06:15 DC 07/19/19 04:15 250 MCG Epinephrine HCl (EPINEPHrine SYRINGE) 4 mg STK-MED ONCE 07/18/19 16:08 07/19/19 16:08 DC Epinephrine HCl 5 mg/Sodium Chloride 255 ml @ 32.926 mls/ hr CONT PRN 07/18/19 14:00 07/24/19 11:06 DC Etomidate (Amidate) 20 mg 1X ONCE 07/17/19 04:45 07/17/19 04:46 DC 07/17/19 04:43 20 MG Furosemide (Lasix) 40 mg [id number] 07/23/19 14:00 07/25/19 08:21 40 MG Heparin Sodium (Porcine) (Heparin Sodium) 7,000 unit 1X ONCE 07/18/19 14:45 07/18/19 14:52 DC 07/18/19 14:45 7,000 UNIT Heparin Sodium/ Sodium Chloride 500 ml @ As Directed STK-MED ONCE 07/18/19 15:11 07/18/19 15:11 DC Heparin Sodium/ Sodium Chloride (HEPARIN for ARTERIAL LINE FLUSH) 1,000 unit 1X ONCE 07/18/19 14:45 07/18/19 14:52 DC 07/18/19 14:45 1,000 UNIT Info (Anti-Coagulation Monitoring By Pharmacy) 1 each PRN DAILY PRN 07/18/19 08:00 07/20/19 14:42 1 EACH Info (Tpn Per Pharmacy) 1 each PRN DAILY PRN 07/22/19 08:45 Cancel Insulin Human Lispro (HumaLOG) 0-6 UNITS Q6HRS 07/17/19 12:00 07/23/19 10:06 DC Iodixanol (Visipaque 320) 100 ml 1X ONCE 07/18/19 14:45 07/18/19 14:52 DC 07/18/19 14:45 104 ML Lansoprazole (Prevacid) 30 mg DAILY 07/18/19 09:00 07/25/19 08:23 30 MG Lidocaine HCl (Lidocaine 1% 20ml Vial) 20 ml 1X ONCE 07/18/19 14:45 07/18/19 14:52 DC 07/18/19 14:45 10 ML Lidocaine HCl (Lidocaine HCl 2% Abboject) 80 mg 1X ONCE 07/20/19 10:00 07/20/19 10:03 DC 07/20/19 10:11 80 MG Lidocaine HCl (Xylocaine-Mpf 1% 2ml Vial) 2 ml STK-MED ONCE 07/18/19 13:05 07/18/19 13:05 DC Lidocaine HCl/ Dextrose 500 ml @ 0 mls/hr CONT PRN 07/20/19 10:00 07/21/19 15:07 DC 07/20/19 10:15 15 MLS/HR Linezolid/Dextrose 300 ml @ 300 mls/hr Q12HR 07/18/19 09:00 07/20/19 08:25 DC 07/19/19 21:29 300 MLS/HR Magnesium Hydroxide (Milk Of Magnesia) 2,400 mg PRN DAILY PRN 07/17/19 10:30 Magnesium Sulfate 50 ml @ 25 mls/hr PRN DAILY PRN 07/23/19 13:15 Magnesium Sulfate/ Dextrose 100 ml @ 100 mls/hr 1X ONCE 07/20/19 09:45 07/20/19 10:44 DC 07/20/19 11:43 100 MLS/HR Metolazone (Zaroxolyn) 2.5 mg QODAY 07/19/19 09:00 07/18/19 10:36 DC Metoprolol Tartrate (Lopressor) 12.5 mg Q12HR 07/23/19 21:00 07/25/19 08:22 12.5 MG Midazolam HCl 100 ml @ 0 mls/hr CONT PRN 07/17/19 07:15 07/22/19 23:41 5 MLS/HR Milrinone Lactate/ Dextrose 100 ml @ 0 mls/hr CONT PRN 07/18/19 07:15 07/23/19 10:03 DC 07/20/19 02:37 4.2 MLS/HR Morphine Sulfate 30 ml @ 0 mls/hr CONT PRN PRN 07/18/19 12:45 07/25/19 02:46 2 MLS/HR Morphine Sulfate (Morphine Sulfate) 4 mg PRN Q1HR PRN 07/17/19 11:15 07/18/19 13:53 4 MG Nitroglycerin (Nitrostat) 0.4 mg 1X ONCE 07/17/19 04:30 07/17/19 04:43 DC 07/17/19 04:29 0.4 MG Nitroglycerin/ Dextrose 250 ml @ 1.5 mls/hr CONT PRN 07/24/19 08:00 07/24/19 08:05 1.5 MLS/HR Norepinephrine Bitartrate 32 mg/ Dextrose 282 ml @ 0 mls/hr CONT PRN 07/18/19 11:15 07/23/19 10:05 DC 07/19/19 10:39 9 MLS/HR Norepinephrine Bitartrate 8 mg/ Dextrose 258 ml @ 0 mls/hr CONT PRN 07/17/19 06:30 07/18/19 13:40 DC 07/17/19 21:52 11 MLS/HR Ondansetron HCl (Zofran) 4 mg PRN Q8HRS PRN 07/17/19 06:00 07/18/19 05:59 DC Piperacillin Sod/ Tazobactam Sod 2.25 gm/Sodium Chloride 50 ml @ 100 mls/hr Q6HRS 07/17/19 18:00 07/22/19 08:47 DC 07/22/19 05:46 100 MLS/HR Piperacillin Sod/ Tazobactam Sod 3.375 gm/Sodium Chloride 50 ml @ 100 mls/hr Q6HRS 07/22/19 12:00 07/25/19 05:33 100 MLS/HR Piperacillin Sod/ Tazobactam Sod 4.5 gm/Sodium Chloride 100 ml @ 200 mls/hr 1X ONCE 07/17/19 06:00 07/17/19 06:29 DC 07/17/19 11:14 200 MLS/HR Potassium Bicarbonate (Potassium Effervescent Tablet) 40 meq 1X ONCE 07/24/19 12:00 07/24/19 12:01 DC 07/24/19 11:54 40 MEQ Potassium Chloride/Water 100 ml @ 50 mls/hr PRN Q2HR PRN 07/23/19 13:15 07/25/19 03:18 50 MLS/HR Potassium Chloride (Klor-Con) 40 meq 1X ONCE 07/24/19 11:00 07/24/19 11:04 DC Propofol 100 ml @ 0 mls/hr CONT PRN 07/17/19 05:15 07/24/19 18:33 10.9 MLS/HR Rocuronium Culver (Zemuron) 50 mg 1X ONCE 07/17/19 04:45 07/17/19 04:46 DC 07/17/19 04:44 50 MG Sodium Chloride 90 meq/Potassium Chloride 50 meq/ Potassium Phosphate 13.6 mmol/Magnesium Sulfate 10 meq/ Calcium Gluconate 10 meq/ Multivitamins 10 ml/Chromium/ Copper/Manganese/ Seleni/Zn 1 ml/ Total Parenteral Nutrition/Amino Acids/Dextrose/ Fat Emulsion Intravenous 1,512 ml @ 63 mls/hr TPN CONT 07/21/19 22:00 07/22/19 09:05 DC Ticagrelor (Brilinta) 90 mg 1X ONCE 07/19/19 17:00 07/19/19 17:07 DC 07/19/19 17:28 90 MG Vancomycin HCl (Vanco Per Pharmacy) 1 each PRN DAILY PRN 07/17/19 06:00 07/17/19 10:41 DC 07/17/19 06:43 1 EACH Vancomycin HCl (Vancomycin Trough Level) 1 each 1X ONCE 07/19/19 06:00 07/19/19 06:01 Cancel Vancomycin HCl 1.75 gm/Sodium Chloride 500 ml @ 250 mls/hr Q24H 07/18/19 06:30 07/17/19 10:38 DC Vancomycin HCl 2 gm/Sodium Chloride 500 ml @ 250 mls/hr 1X ONCE 07/17/19 06:00 07/17/19 07:59 DC 07/17/19 06:15 250 MLS/HR Vecuronium Culver (Norcuron Bolus) 20 mg STK-MED ONCE 07/18/19 12:00 07/19/19 08:48 DC Labs: Lab Laboratory Tests Test 07/24/19 14:08 07/24/19 18:17 07/25/19 00:01 07/25/19 05:30 Potassium Level 3.7 mmol/L (3.5-5.1) 3.3 mmol/L (3.5-5.1) 3.2 mmol/L (3.5-5.1) 3.6 mmol/L (3.5-5.1) White Blood Count 4.8 x10^3/uL (4.0-11.0) Red Blood Count 3.64 x10^6/uL (4.30-5.70) Hemoglobin 11.0 g/dL (13.0-17.5) Hematocrit 32.1 % (39.0-53.0) Mean Corpuscular Volume 88 fL (79-100) Mean Corpuscular Hemoglobin 30 pg (25-35) Mean Corpuscular Hemoglobin Concent 34 g/dL (31-37) Red Cell Distribution Width 16.3 % (11.5-14.5) Platelet Count 134 x10^3/uL (140-400) Neutrophils (%) (Auto) 68 % (31-73) Lymphocytes (%) (Auto) 16 % (24-48) Monocytes (%) (Auto) 11 % (0-9) Eosinophils (%) (Auto) 4 % (0-3) Basophils (%) (Auto) 1 % (0-3) Neutrophils # (Auto) 3.3 x10^3/uL (1.8-7.7) Lymphocytes # (Auto) 0.8 x10^3/uL (1.0-4.8) Monocytes # (Auto) 0.5 x10^3/uL (0.0-1.1) Eosinophils # (Auto) 0.2 x10^3/uL (0.0-0.7) Basophils # (Auto) 0.0 x10^3/uL (0.0-0.2) Sodium Level 145 mmol/L (136-145) Chloride Level 107 mmol/L (98-107) Carbon Dioxide Level 31 mmol/L (21-32) Anion Gap 7 (6-14) Blood Urea Nitrogen 51 mg/dL (8-26) Creatinine 1.8 mg/dL (0.7-1.3) Estimated GFR (Cockcroft-Gault) 37.2 Glucose Level 95 mg/dL (70-99) Calcium Level 7.7 mg/dL (8.5-10.1) Magnesium Level 1.7 mg/dL (1.8-2.4) Objective: Assessment: 1. Sepsis. 2. Leukocytosis. 3. Lactic acidosis. 4. Acute hypoxic respiratory failure, status post intubation. Bilateral pulmonary infiltrates 5. Congestive heart failure. s/p VT arrest 07/17 s/p PCI with stent placement 6. Cardiomyopathy. 7. DONTAE on Chronic kidney disease. 8. Gastroesophageal reflux disease. 9. On amiodarone. 10. COVID neg Plan: Plan of Care Continues Zosyn, 07/16, will de-escalate soon off Zyvox; s/p 1 dose of vancomycin Cultures neg Maintain aspiration precautions Supportive care Critically ill Discussed with nurse MARGRET DORSEY MD July 25, 2019 08:34
--- NOTE | 2019-07-25 08:40 | RAD ---
EXAM: CHEST 1 VIEW History: Coarse lung sounds COMPARISON: 07/24/2019 TECHNIQUE: Single portable radiograph of the chest FINDINGS: Low lung volumes and technique accentuates heart size and pulmonary vascularity. The visualized feeding tube, left internal jugular line are unchanged. Mild prominent appearing bilateral interstitial lung markings likely congestive changes with bibasilar lung airspace opacities atelectatic or infiltrates. IMPRESSION: Unchanged exam. Electronically signed by: Oc Santiago MD (07/25/2019 8:38 AM) [id number]
[2019-07-25] MEDS ORDERED: MAGNESIUM SULFATE 2GM 50 ML IV PRN (08:45)
[2019-07-25 09:42] LABS: BASE EXCESS ABG 3 mmol/L (-3-3); HCO3 ABG 29 mmol/L (21-28); PCO2 ABG 45 mmHg (35-46); PO2 ABG 91 mmHg (65-108); SAT O2 ABG 96 % (92-99)
--- NOTE | 2019-07-25 09:45 | PDOC ---
PULMONARY PROGRESS NOTES Subjective Awake and alert following commands this am, currently on PS 5/5 at 40% wants ET out positive secretions Vitals Vital Signs Date Time Temp Pulse Resp B/P (MAP) Pulse Ox O2 Delivery O2 Flow Rate FiO2 07/25/19 09:01 90 30 194/74 (114) 100 Ventilator 07/25/19 07:00 99.1 99.1 07/25/19 00:00 15.0 Comments ros unable to obtain on vent General: Alert, No acute distress HEENT: Other (nc at perrl nose clear orally intubated neck no lad no thyromegaly) Lungs: Crackles Cardiovascular: S1, S2 Abdomen: Soft, Non-tender Extremities: Other (BLE +1 edema ) Skin: Warm Labs Laboratory Tests Test 07/23/19 18:50 07/24/19 06:00 07/24/19 06:11 07/24/19 14:08 Potassium Level 3.5 mmol/L (3.5-5.1) 3.3 mmol/L (3.5-5.1) 3.7 mmol/L (3.5-5.1) White Blood Count 5.2 x10^3/uL (4.0-11.0) Red Blood Count 3.93 x10^6/uL (4.30-5.70) Hemoglobin 11.6 g/dL (13.0-17.5) Hematocrit 35.1 % (39.0-53.0) Mean Corpuscular Volume 89 fL (79-100) Mean Corpuscular Hemoglobin 29 pg (25-35) Mean Corpuscular Hemoglobin Concent 33 g/dL (31-37) Red Cell Distribution Width 16.5 % (11.5-14.5) Platelet Count 127 x10^3/uL (140-400) Neutrophils (%) (Auto) 74 % (31-73) Lymphocytes (%) (Auto) 12 % (24-48) Monocytes (%) (Auto) 9 % (0-9) Eosinophils (%) (Auto) 4 % (0-3) Basophils (%) (Auto) 1 % (0-3) Neutrophils # (Auto) 3.9 x10^3/uL (1.8-7.7) Lymphocytes # (Auto) 0.6 x10^3/uL (1.0-4.8) Monocytes # (Auto) 0.5 x10^3/uL (0.0-1.1) Eosinophils # (Auto) 0.2 x10^3/uL (0.0-0.7) Basophils # (Auto) 0.0 x10^3/uL (0.0-0.2) Sodium Level 147 mmol/L (136-145) Chloride Level 110 mmol/L (98-107) Carbon Dioxide Level 28 mmol/L (21-32) Anion Gap 9 (6-14) Blood Urea Nitrogen 60 mg/dL (8-26) Creatinine 1.9 mg/dL (0.7-1.3) Estimated GFR (Cockcroft-Gault) 34.9 Glucose Level 132 mg/dL (70-99) Calcium Level 7.7 mg/dL (8.5-10.1) Magnesium Level 2.0 mg/dL (1.8-2.4) Glucose (Fingerstick) 122 mg/dL (70-99) Test 07/24/19 18:17 07/25/19 00:01 07/25/19 05:30 Potassium Level 3.3 mmol/L (3.5-5.1) 3.2 mmol/L (3.5-5.1) 3.6 mmol/L (3.5-5.1) White Blood Count 4.8 x10^3/uL (4.0-11.0) Red Blood Count 3.64 x10^6/uL (4.30-5.70) Hemoglobin 11.0 g/dL (13.0-17.5) Hematocrit 32.1 % (39.0-53.0) Mean Corpuscular Volume 88 fL (79-100) Mean Corpuscular Hemoglobin 30 pg (25-35) Mean Corpuscular Hemoglobin Concent 34 g/dL (31-37) Red Cell Distribution Width 16.3 % (11.5-14.5) Platelet Count 134 x10^3/uL (140-400) Neutrophils (%) (Auto) 68 % (31-73) Lymphocytes (%) (Auto) 16 % (24-48) Monocytes (%) (Auto) 11 % (0-9) Eosinophils (%) (Auto) 4 % (0-3) Basophils (%) (Auto) 1 % (0-3) Neutrophils # (Auto) 3.3 x10^3/uL (1.8-7.7) Lymphocytes # (Auto) 0.8 x10^3/uL (1.0-4.8) Monocytes # (Auto) 0.5 x10^3/uL (0.0-1.1) Eosinophils # (Auto) 0.2 x10^3/uL (0.0-0.7) Basophils # (Auto) 0.0 x10^3/uL (0.0-0.2) Sodium Level 145 mmol/L (136-145) Chloride Level 107 mmol/L (98-107) Carbon Dioxide Level 31 mmol/L (21-32) Anion Gap 7 (6-14) Blood Urea Nitrogen 51 mg/dL (8-26) Creatinine 1.8 mg/dL (0.7-1.3) Estimated GFR (Cockcroft-Gault) 37.2 Glucose Level 95 mg/dL (70-99) Calcium Level 7.7 mg/dL (8.5-10.1) Magnesium Level 1.7 mg/dL (1.8-2.4) Laboratory Tests Test 07/24/19 14:08 07/24/19 18:17 07/25/19 00:01 07/25/19 05:30 Potassium Level 3.7 mmol/L (3.5-5.1) 3.3 mmol/L (3.5-5.1) 3.2 mmol/L (3.5-5.1) 3.6 mmol/L (3.5-5.1) White Blood Count 4.8 x10^3/uL (4.0-11.0) Red Blood Count 3.64 x10^6/uL (4.30-5.70) Hemoglobin 11.0 g/dL (13.0-17.5) Hematocrit 32.1 % (39.0-53.0) Mean Corpuscular Volume 88 fL (79-100) Mean Corpuscular Hemoglobin 30 pg (25-35) Mean Corpuscular Hemoglobin Concent 34 g/dL (31-37) Red Cell Distribution Width 16.3 % (11.5-14.5) Platelet Count 134 x10^3/uL (140-400) Neutrophils (%) (Auto) 68 % (31-73) Lymphocytes (%) (Auto) 16 % (24-48) Monocytes (%) (Auto) 11 % (0-9) Eosinophils (%) (Auto) 4 % (0-3) Basophils (%) (Auto) 1 % (0-3) Neutrophils # (Auto) 3.3 x10^3/uL (1.8-7.7) Lymphocytes # (Auto) 0.8 x10^3/uL (1.0-4.8) Monocytes # (Auto) 0.5 x10^3/uL (0.0-1.1) Eosinophils # (Auto) 0.2 x10^3/uL (0.0-0.7) Basophils # (Auto) 0.0 x10^3/uL (0.0-0.2) Sodium Level 145 mmol/L (136-145) Chloride Level 107 mmol/L (98-107) Carbon Dioxide Level 31 mmol/L (21-32) Anion Gap 7 (6-14) Blood Urea Nitrogen 51 mg/dL (8-26) Creatinine 1.8 mg/dL (0.7-1.3) Estimated GFR (Cockcroft-Gault) 37.2 Glucose Level 95 mg/dL (70-99) Calcium Level 7.7 mg/dL (8.5-10.1) Magnesium Level 1.7 mg/dL (1.8-2.4) Medications Active Scripts Medications Dose Route/Sig Max Daily Dose Days Date Category Toprol XL (Metoprolol Succinate) 50 Mg Tab.er.24h 50 Mg PO DAILY 06/20/19 Rx Metolazone 2.5 Mg Tablet 2.5 Mg PO QODAY 06/20/19 Rx Furosemide 40 Mg Tablet 40 Mg PO [id number] 06/20/19 Rx Klor-Con M20 (Potassium Chloride) 20 Meq Tab.er.prt 20 Meq PO BIDWMEALS 06/20/19 Rx Amiodarone Hcl 200 Mg Tablet 200 Mg PO DAILY 06/20/19 Rx Eliquis (Apixaban) 5 Mg Tablet 5 Mg PO BID 06/20/19 Rx Acetaminophen 325 Mg Tablet 325 Mg PO Q6HRS 06/13/19 Reported Dicyclomine Hcl 10 Mg Capsule 1 Cap PO PRN TID PRN 05/17/19 Reported Nexium Capsule (Esomeprazole Magnesium) 40 Mg Capsule. 40 Mg PO DAILYAC 05/17/19 Reported Oxycodone Hcl Immed.release (Oxycodone Hcl) 15 Mg Tablet 15 Mg PO PRN Q12HR PRN 05/17/19 Reported Alprazolam 1 Mg Tablet 1 Tab PO BID 02/05/17 Reported Comments EF from 07/20/2019 <Conclusion> Left ventricle systolic function is mildly impaired. The Ejection Fraction is 40-45%. Septal motion consistent with conduction abnormality. Mild global hypokinesis. Technically difficult study. Limited study for EF only. cxr 07/24 reviewed. no change Impression . IMPRESSION: 1. Acute hypoxemic hypercapnic respiratory failure. 2. Bilateral pulmonary infiltrates, suspect combination of congestive heart failure and pneumonia. 3. Sepsis. 4. SARS-CoV 2, negative 5. Cardiomyopathy, ejection fraction of 15%., now 40% 6. Chronic atrial fibrillation. 7. DONTAE/Chronic kidney disease. 8. Acute on chronic systolic heart failure. 9. Hypotension, RESOLVED 10. Mild elevation in troponin. 11. Paroxysmal atrial fibrillation with recent cardioversion. 12. Status post CODE BLUE secondary to V. tach/coronary artery disease see below CArdiac CAth 07/18/2019 Conclusion 1. Normal biventricular filling pressures. 2. Mild pulmonary HTN 3. Normal cardiac output at 5.1 L/min 4. One vessel coronary disease. 5. Successful PCI of the RCA as described above 6. Patient had one episode of SVT with hypotension requiring synchronized cardioversion to SR. Plan . 1. PS trial , Restless, wants ET out. If ABG adequate , will extubate, may need BIPAP 2. bronchodilators/ CXR reviewed 3. Follow cardiology recs and lasix 4. cont. ABX 5. Follow nephrology recs 6. D/W RN and RT 7. Optimize BP DVT/GI PPX: eliquis per cards/ prevacid CODE: FULL Critical care time 30 minutes CHRISTY WEBER MD July 25, 2019 09:45
[2019-07-25] MEDS ORDERED: MAGNESIUM SULFATE 2GM 50 ML IV ONE (10:00)
--- NOTE | 2019-07-25 10:16 | PDOC ---
PROGRESS NOTES Subjective Subjective discussed with nurse. will be extubated shortly. alert. bp is high. lab and cxr report reviewed. potassium and magnesium repletion now ordered. Objective Objective Vital Signs Date Time Temp Pulse Resp B/P (MAP) Pulse Ox O2 Delivery O2 Flow Rate FiO2 07/25/19 09:01 90 30 194/74 (114) 100 Ventilator 07/25/19 07:00 99.1 99.1 07/25/19 00:00 15.0 Intake and Output 07/25/19 07:00 Intake Total 3553.21 ml Output Total 3295 ml Balance 258.21 ml IV Total 795.21 ml Tube Feeding 1558 ml Other 1200 ml Output Urine Total 3295 ml Gastric Drainage Total 0 ml Physical Exam Abdomen: Soft Heart: Regular rate, Normal S1, Normal S2 Extremities: No edema General: Alert HEENT: Atraumatic Lungs: Other (clear anteriorly) Neuro: Other (alert) Psych/Mental Status: Other (alert) Skin: No rashes Assessment Assessment Problems1. Acute pulmonary edema. compensated 2. Acute on chronic systolic congestive heart failure.compensated 3. Severe cardiomyopathy with left ventricular ejection fraction 40-45% 07/19 per echo 4. Acute hypoxic and hypercarbic respiratory failure, on the ventilator. 5. Paroxysmal atrial fibrillation, currently in NSR 6. sepsis with shock, shock resolved 7. chronic kidney disease stage 3. bun higher due to intravascular volume depletion. off lasix 8. Gastroesophageal reflux disease. 9. Leukocytosis resolved bilateral lung infiltrates. suspect pneumonia hypernatremia mild hypokalemia hypomagnesemia VT cardiac arrest 07/17 and again 07/19 PCI RCA 07/17 hypertension Medical Problems: (1) Acute exacerbation of CHF (congestive heart failure) Status: Acute (2) Acute on chronic renal insufficiency Status: Acute (3) Elevated troponin I level Status: Acute (4) Septic shock Status: Acute (5) Suspected COVID-19 virus infection Status: Acute Plan Plan of Care extubate place dobhoff tube for tube feeding and meds and water PT and OT and ST to evaluate swallow start low dose amlodipine continue iv lasix lab tomorrow decrease zosyn based on renal function resume eliquis if no gross hematuria Comment Review of Relevant I have reviewed the following items juan (where applicable) has been applied. Labs Laboratory Tests Test 07/23/19 18:50 07/24/19 06:00 07/24/19 06:11 07/24/19 14:08 Potassium Level 3.5 mmol/L (3.5-5.1) 3.3 mmol/L (3.5-5.1) 3.7 mmol/L (3.5-5.1) White Blood Count 5.2 x10^3/uL (4.0-11.0) Red Blood Count 3.93 x10^6/uL (4.30-5.70) Hemoglobin 11.6 g/dL (13.0-17.5) Hematocrit 35.1 % (39.0-53.0) Mean Corpuscular Volume 89 fL (79-100) Mean Corpuscular Hemoglobin 29 pg (25-35) Mean Corpuscular Hemoglobin Concent 33 g/dL (31-37) Red Cell Distribution Width 16.5 % (11.5-14.5) Platelet Count 127 x10^3/uL (140-400) Neutrophils (%) (Auto) 74 % (31-73) Lymphocytes (%) (Auto) 12 % (24-48) Monocytes (%) (Auto) 9 % (0-9) Eosinophils (%) (Auto) 4 % (0-3) Basophils (%) (Auto) 1 % (0-3) Neutrophils # (Auto) 3.9 x10^3/uL (1.8-7.7) Lymphocytes # (Auto) 0.6 x10^3/uL (1.0-4.8) Monocytes # (Auto) 0.5 x10^3/uL (0.0-1.1) Eosinophils # (Auto) 0.2 x10^3/uL (0.0-0.7) Basophils # (Auto) 0.0 x10^3/uL (0.0-0.2) Sodium Level 147 mmol/L (136-145) Chloride Level 110 mmol/L (98-107) Carbon Dioxide Level 28 mmol/L (21-32) Anion Gap 9 (6-14) Blood Urea Nitrogen 60 mg/dL (8-26) Creatinine 1.9 mg/dL (0.7-1.3) Estimated GFR (Cockcroft-Gault) 34.9 Glucose Level 132 mg/dL (70-99) Calcium Level 7.7 mg/dL (8.5-10.1) Magnesium Level 2.0 mg/dL (1.8-2.4) Glucose (Fingerstick) 122 mg/dL (70-99) Test 07/24/19 18:17 07/25/19 00:01 07/25/19 05:30 Potassium Level 3.3 mmol/L (3.5-5.1) 3.2 mmol/L (3.5-5.1) 3.6 mmol/L (3.5-5.1) White Blood Count 4.8 x10^3/uL (4.0-11.0) Red Blood Count 3.64 x10^6/uL (4.30-5.70) Hemoglobin 11.0 g/dL (13.0-17.5) Hematocrit 32.1 % (39.0-53.0) Mean Corpuscular Volume 88 fL (79-100) Mean Corpuscular Hemoglobin 30 pg (25-35) Mean Corpuscular Hemoglobin Concent 34 g/dL (31-37) Red Cell Distribution Width 16.3 % (11.5-14.5) Platelet Count 134 x10^3/uL (140-400) Neutrophils (%) (Auto) 68 % (31-73) Lymphocytes (%) (Auto) 16 % (24-48) Monocytes (%) (Auto) 11 % (0-9) Eosinophils (%) (Auto) 4 % (0-3) Basophils (%) (Auto) 1 % (0-3) Neutrophils # (Auto) 3.3 x10^3/uL (1.8-7.7) Lymphocytes # (Auto) 0.8 x10^3/uL (1.0-4.8) Monocytes # (Auto) 0.5 x10^3/uL (0.0-1.1) Eosinophils # (Auto) 0.2 x10^3/uL (0.0-0.7) Basophils # (Auto) 0.0 x10^3/uL (0.0-0.2) Sodium Level 145 mmol/L (136-145) Chloride Level 107 mmol/L (98-107) Carbon Dioxide Level 31 mmol/L (21-32) Anion Gap 7 (6-14) Blood Urea Nitrogen 51 mg/dL (8-26) Creatinine 1.8 mg/dL (0.7-1.3) Estimated GFR (Cockcroft-Gault) 37.2 Glucose Level 95 mg/dL (70-99) Calcium Level 7.7 mg/dL (8.5-10.1) Magnesium Level 1.7 mg/dL (1.8-2.4) Laboratory Tests Test 07/24/19 14:08 07/24/19 18:17 07/25/19 00:01 07/25/19 05:30 Potassium Level 3.7 mmol/L (3.5-5.1) 3.3 mmol/L (3.5-5.1) 3.2 mmol/L (3.5-5.1) 3.6 mmol/L (3.5-5.1) White Blood Count 4.8 x10^3/uL (4.0-11.0) Red Blood Count 3.64 x10^6/uL (4.30-5.70) Hemoglobin 11.0 g/dL (13.0-17.5) Hematocrit 32.1 % (39.0-53.0) Mean Corpuscular Volume 88 fL (79-100) Mean Corpuscular Hemoglobin 30 pg (25-35) Mean Corpuscular Hemoglobin Concent 34 g/dL (31-37) Red Cell Distribution Width 16.3 % (11.5-14.5) Platelet Count 134 x10^3/uL (140-400) Neutrophils (%) (Auto) 68 % (31-73) Lymphocytes (%) (Auto) 16 % (24-48) Monocytes (%) (Auto) 11 % (0-9) Eosinophils (%) (Auto) 4 % (0-3) Basophils (%) (Auto) 1 % (0-3) Neutrophils # (Auto) 3.3 x10^3/uL (1.8-7.7) Lymphocytes # (Auto) 0.8 x10^3/uL (1.0-4.8) Monocytes # (Auto) 0.5 x10^3/uL (0.0-1.1) Eosinophils # (Auto) 0.2 x10^3/uL (0.0-0.7) Basophils # (Auto) 0.0 x10^3/uL (0.0-0.2) Sodium Level 145 mmol/L (136-145) Chloride Level 107 mmol/L (98-107) Carbon Dioxide Level 31 mmol/L (21-32) Anion Gap 7 (6-14) Blood Urea Nitrogen 51 mg/dL (8-26) Creatinine 1.8 mg/dL (0.7-1.3) Estimated GFR (Cockcroft-Gault) 37.2 Glucose Level 95 mg/dL (70-99) Calcium Level 7.7 mg/dL (8.5-10.1) Magnesium Level 1.7 mg/dL (1.8-2.4) Microbiology 07/17/19 Urine Culture - Final, Complete 07/17/19 Urine Culture Result 1 (BOYD) - Final, Complete 07/17/19 Blood Culture - Final, Complete NO GROWTH AFTER 5 DAYS 07/17/19 Nose/Throat Culture - Final, Complete 07/17/19 - Final, Complete Medications Current Medications Nitroglycerin (Nitrostat) 0.4 mg STK-MED ONCE SL ; Start 07/17/19 at 04:28; Stop 07/17/19 at 04:28; Status DC Nitroglycerin (Nitrostat) 0.4 mg 1X ONCE SL Last administered on 07/17/19at 04:29; Start 07/17/19 at 04:30; Stop 07/17/19 at 04:43; Status DC Nitroglycerin/ Dextrose 250 ml @ 0 mls/hr 1X ONCE IV Last administered on 07/17/19at 04:47; Start 07/17/19 at 04:45; Stop 07/17/19 at 04:46; Status DC Rocuronium [place] (Zemuron) 50 mg 1X ONCE IV Last administered on 07/17/19at 04:44; Start 07/17/19 at 04:45; Stop 07/17/19 at 04:46; Status DC Etomidate (Amidate) 20 mg 1X ONCE IV Last administered on 07/17/19at 04:43; Start 07/17/19 at 04:45; Stop 07/17/19 at 04:46; Status DC Propofol 100 ml @ 0 mls/hr CONT PRN IV SEE PROTOCOL Last administered on 07/24/19at 18:33; Start 07/17/19 at 05:15 Aspirin (Aspirin Rectal Supp) 300 mg 1X ONCE OR Last administered on 07/17/19at 06:01; Start 07/17/19 at 05:45; Stop 07/17/19 at 05:46; Status DC Bumetanide (Bumex) 1 mg 1X ONCE IV Last administered on 07/17/19at 06:00; Start 07/17/19 at 06:00; Stop 07/17/19 at 06:01; Status DC Piperacillin Sod/ Tazobactam Sod 4.5 gm/Sodium Chloride 100 ml @ 200 mls/hr 1X ONCE IV Last administered on 07/17/19at 11:14; Start 07/17/19 at 06:00; Stop 07/17/19 at 06:29; Status DC Vancomycin HCl (Vanco Per Pharmacy) 1 each PRN DAILY PRN MC SEE COMMENTS Last administered on 07/17/19at 06:43; Start 07/17/19 at 06:00; Stop 07/17/19 at 10:41; Status DC Vancomycin HCl 2 gm/Sodium Chloride 500 ml @ 250 mls/hr 1X ONCE IV Last admi nistered on 07/17/19at 06:15; Start 07/17/19 at 06:00; Stop 07/17/19 at 07:59; Status DC Ondansetron HCl (Zofran) 4 mg PRN Q8HRS PRN IV NAUSEA/VOMITING; Start 07/17/19 at 06:00; Stop 07/18/19 at 05:59; Status DC Norepinephrine Bitartrate 8 mg/ Dextrose 258 ml @ 0 mls/hr CONT PRN IV SEE I/O RECORD Last administered on 07/17/19at 21:52; Start 07/17/19 at 06:30; Stop 07/18/19 at 13:40; Status DC Vancomycin HCl 1.75 gm/Sodium Chloride 500 ml @ 250 mls/hr Q24H IV ; Start 07/18/19 at 06:30; Stop 07/17/19 at 10:38; Status DC Vancomycin HCl (Vancomycin Trough Level) 1 each 1X ONCE MC ; Start 07/19/19 at 06:00; Stop 07/19/19 at 06:01; Status Cancel Morphine Sulfate (Morphine Sulfate) 6 mg 1X ONCE IV Last administered on 07/17/19at 07:08; Start 07/17/19 at 07:15; Stop 07/17/19 at 07:16; Status DC Midazolam HCl 100 ml @ 0 mls/hr CONT PRN IV SEE PROTOCOL Last administered on 07/22/19at 23:41; Start 07/17/19 at 07:15 Morphine Sulfate (Morphine Sulfate) 4 mg PRN Q1HR PRN IV SEE COMMENTS.; Start 07/17/19 at 08:00; Stop 07/17/19 at 10:38; Status DC Heparin Sodium (Porcine) (Heparin Sodium) 5,000 unit Q12HR SQ ; Start 07/17/19 at 21:00; Stop 07/17/19 at 10:38; Status DC Amiodarone HCl (Cordarone) 200 mg DAILY PO Last administered on 07/21/19at 09:04; Start 07/18/19 at 09:00; Stop 07/21/19 at 15:07; Status DC Metolazone (Zaroxolyn) 2.5 mg QODAY PO ; Start 07/19/19 at 09:00; Stop 07/18/19 at 10:36; Status DC Potassium Chloride (Klor-Con) 20 meq BIDWMEALS PO Last administered on 07/17/19at 16:34; Start 07/17/19 at 17:00; Stop 07/18/19 at 10:36; Status DC Furosemide (Lasix) 40 mg [id number] IVP Last administered on 07/18/19at 08:03; Start 07/17/19 at 14:00; Stop 07/20/19 at 11:02; Status DC Morphine Sulfate (Morphine Sulfate) 2 mg PRN Q4HRS PRN IV SEE COMMENTS.; Start 07/17/19 at 10:30; Status Cancel Apixaban (Eliquis) 5 mg BID FT Last administered on 07/23/19at 08:17; Start 07/17/19 at 21:00; Stop 07/23/19 at 10:05; Status DC Insulin Human Lispro (HumaLOG) 0-6 UNITS Q6HRS SQ ; Start 07/17/19 at 12:00; Stop 07/23/19 at 10:06; Status DC Lansoprazole (Prevacid) 30 mg DAILY FT Last administered on 07/25/19at 08:23; Start 07/18/19 at 09:00 Acetaminophen (Tylenol) 650 mg PRN Q6HRS PRN FT MILD PAIN / TEMP > 100.3'F; Start 07/17/19 at 10:30 Alprazolam (Xanax) 1 mg BID FT Last administered on 07/25/19at 08:23; Start 07/17/19 at 21:00 Magnesium Hydroxide (Milk Of Magnesia) 2,400 mg PRN DAILY PRN FT CONSTIPATION; Start 07/17/19 at 10:30 Dexmedetomidine HCl 400 mcg/ Sodium Chloride 100 ml @ 0 mls/hr CONT PRN IV PER PROTOCOL Last administered on 07/20/19at 13:31; Start 07/17/19 at 11:00 Sodium Chloride 500 ml @ 500 mls/hr 1X PRN PRN IV SEE COMMENTS; Start 07/17/19 at 11:00; Stop 07/22/19 at 12:54; Status DC Atropine Sulfate (ATROPINE 0.5mg SYRINGE) 0.5 mg PRN Q5MIN PRN IV SEE COMMENTS; Start 07/17/19 at 11:00 Morphine Sulfate (Morphine Sulfate) 2 mg PRN Q1HR PRN IV SEE COMMENTS. Last administered on 07/17/19at 13:37; Start 07/17/19 at 11:15 Morphine Sulfate (Morphine Sulfate) 4 mg PRN Q1HR PRN IV SEE COMMENTS. Last administered on 07/18/19at 13:53; Start 07/17/19 at 11:15 Piperacillin Sod/ Tazobactam Sod 2.25 gm/Sodium Chloride 50 ml @ 100 mls/hr Q6HRS IV Last administered on 07/22/19at 05:46; Start 07/17/19 at 18:00; Stop 07/22/19 at 08:47; Status DC Magnesium Sulfate 50 ml @ 25 mls/hr 1X ONCE IV Last administered on 07/18/19at 08:04; Start 07/18/19 at 07:15; Stop 07/18/19 at 09:14; Status DC Milrinone Lactate/ Dextrose 100 ml @ 0 mls/hr CONT PRN IV SEE I/O RECORD Last administered on 07/20/19at 02:37; Start 07/18/19 at 07:15; Stop 07/23/19 at 10:03; Status DC Linezolid/Dextrose 300 ml @ 300 mls/hr Q12HR IV Last administered on 07/19/19at 21:29; Start 07/18/19 at 09:00; Stop 07/20/19 at 08:25; Status DC Info (Anti-Coagulation Monitoring By Pharmacy) 1 each PRN DAILY PRN MC SEE COMMENTS Last administered on 07/20/19at 14:42; Start 07/18/19 at 08:00 Vecuronium [place] (Norcuron Bolus) 10 mg STK-MED ONCE IV ; Start 07/18/19 at 09:12; Stop 07/18/19 at 09:12; Status DC Potassium Chloride/Water 100 ml @ 100 mls/hr 1X ONCE IV Last administered on 07/18/19at 10:04; Start 07/18/19 at 09:45; Stop 07/18/19 at 10:44; Status DC Magnesium Sulfate 50 ml @ 25 mls/hr 1X ONCE IV Last administered on 07/18/19at 10:03; Start 07/18/19 at 09:45; Stop 07/18/19 at 11:44; Status DC Norepinephrine Bitartrate 32 mg/ Dextrose 282 ml @ 0 mls/hr CONT PRN IV SEE I/O RECORD Last administered on 07/19/19at 10:39; Start 07/18/19 at 11:15; Stop 07/23/19 at 10:05; Status DC Morphine Sulfate 30 ml @ 0 mls/hr CONT PRN PRN IV PER PROTOCOL Last administered on 07/25/19at 02:46; Start 07/18/19 at 12:45 Lidocaine HCl (Xylocaine-Mpf 1% 2ml Vial) 2 ml STK-MED ONCE .ROUTE ; Start 07/18/19 at 13:05; Stop 07/18/19 at 13:05; Status DC Iodixanol (Visipaque 320) 100 ml STK-MED ONCE .ROUTE ; Start 07/18/19 at 13:05; Stop 07/18/19 at 13:06; Status DC Heparin Sodium/ Sodium Chloride 1,500 ml @ As Directed STK-MED ONCE .ROUTE ; Start 07/18/19 at 13:05; Stop 07/18/19 at 13:06; Status DC Vecuronium [place] (Norcuron Bolus) 10 mg STK-MED ONCE IV ; Start 07/18/19 at 13:49; Stop 07/18/19 at 13:49; Status DC Vecuronium [place] (Norcuron Bolus) 6 mg PRN Q4HRS PRN IV ANXIETY / AGITATION; Start 07/18/19 at 14:00 Epinephrine HCl 5 mg/Sodium Chloride 255 ml @ 32.926 mls/ hr CONT PRN IV SEE I/O RECORD; Start 07/18/19 at 14:00; Stop 07/24/19 at 11:06; Status DC Lidocaine HCl (Lidocaine 1% 20ml Vial) 20 ml STK-MED ONCE .ROUTE ; Start 07/18/19 at 14:11; Stop 07/18/19 at 14:11; Status DC Heparin Sodium (Porcine) (Heparin Sodium) 10,000 unit STK-MED ONCE .ROUTE ; Start 07/18/19 at 14:27; Stop 07/18/19 at 14:28; Status DC Heparin Sodium/ Sodium Chloride (HEPARIN for ARTERIAL LINE FLUSH) 1,000 unit 1X ONCE IART Last administered on 07/18/19at 14:45; Start 07/18/19 at 14:45; Stop 07/18/19 at 14:52; Status DC Heparin Sodium/ Sodium Chloride (HEPARIN for ARTERIAL LINE FLUSH) 1,000 unit 1X ONCE IART Last administered on 07/18/19at 14:45; Start 07/18/19 at 14:45; Stop 07/18/19 at 14:52; Status DC Iodixanol (Visipaque 320) 100 ml 1X ONCE IART Last administered on 07/18/19at 14:45; Start 07/18/19 at 14:45; Stop 07/18/19 at 14:52; Status DC Heparin Sodium (Porcine) (Heparin Sodium) 7,000 unit 1X ONCE IV Last adm inistered on 07/18/19at 14:45; Start 07/18/19 at 14:45; Stop 07/18/19 at 14:52; Status DC Lidocaine HCl (Lidocaine 1% 20ml Vial) 20 ml 1X ONCE INJ Last administered on 07/18/19at 14:45; Start 07/18/19 at 14:45; Stop 07/18/19 at 14:52; Status DC Heparin Sodium/ Sodium Chloride 500 ml @ As Directed STK-MED ONCE .ROUTE ; Start 07/18/19 at 15:11; Stop 07/18/19 at 15:11; Status DC Ticagrelor (Brilinta) 180 mg 1X ONCE PO Last administered on 07/18/19at 16:08; Start 07/18/19 at 16:00; Stop 07/18/19 at 16:01; Status DC Digoxin (Lanoxin) 250 mcg 1X ONCE IV ; Start 07/19/19 at 06:15; Stop 07/19/19 at 06:16; Status Cancel Digoxin (Lanoxin) 250 mcg 1X ONCE IV Last administered on 07/19/19at 05:15; Start 07/19/19 at 05:15; Stop 07/19/19 at 06:11; Status DC Digoxin (Lanoxin) 250 mcg 1X ONCE IV Last administered on 07/19/19at 08:48; Start 07/19/19 at 09:00; Stop 07/19/19 at 09:01; Status DC Digoxin (Lanoxin) 250 mcg 1X ONCE IV Last administered on 07/19/19at 04:15; Start 07/19/19 at 04:10; Stop 07/19/19 at 06:15; Status DC Vecuronium [place] (Norcuron Bolus) 20 mg STK-MED ONCE IV ; Start 07/18/19 at 12:00; Stop 07/19/19 at 08:48; Status DC Potassium Chloride/Water 100 ml @ 100 mls/hr 1X ONCE IV Last administered on 07/19/19at 12:13; Start 07/19/19 at 11:45; Stop 07/19/19 at 12:44; Status DC Amiodarone HCl 150 mg/Dextrose 103 ml @ 618 mls/hr 1X ONCE IV Last administered on 07/19/19at 12:15; Start 07/19/19 at 12:00; Stop 07/19/19 at 12:09; Status DC Metoprolol Tartrate (Lopressor) 12.5 mg Q6HRS PO Last administered on 07/23/19at 05:54; Start 07/19/19 at 12:00; Stop 07/23/19 at 10:05; Status DC Amiodarone HCl (Cordarone) 300 mg STK-MED ONCE .ROUTE ; Start 07/18/19 at 16:08; Stop 07/19/19 at 16:08; Status DC Epinephrine HCl (EPINEPHrine SYRINGE) 4 mg STK-MED ONCE .ROUTE ; Start 07/18/19 at 16:08; Stop 07/19/19 at 16:08; Status DC Aspirin (Aspirin Chewable) 81 mg 1X ONCE PO Last administered on 07/19/19at 17:28; Start 07/19/19 at 17:00; Stop 07/19/19 at 17:06; Status DC Aspirin (Aspirin Chewable) 81 mg [id number] PO Last administered on 07/25/19at 08:21; Start 07/20/19 at 08:00 Ticagrelor (Brilinta) 90 mg BID PO Last administered on 07/25/19at 08:23; Start 07/20/19 at 09:00 Ticagrelor (Brilinta) 90 mg 1X ONCE PO Last administered on 07/19/19at 17:28; Start 07/19/19 at 17:00; Stop 07/19/19 at 17:07; Status DC Info (Tpn Per Pharmacy) 1 each PRN DAILY PRN MC SEE COMMENTS Last administered on 07/21/19at 11:58; Start 07/19/19 at 17:00; Stop 07/21/19 at 19:42; Status DC Magnesium Sulfate/ Dextrose 100 ml @ 100 mls/hr 1X ONCE IV Last administered on 07/20/19at 09:40; Start 07/20/19 at 09:45; Stop 07/20/19 at 10:44; Status DC Magnesium Sulfate/ Dextrose 100 ml @ 100 mls/hr 1X ONCE IV Last administered on 07/20/19at 11:43; Start 07/20/19 at 09:45; Stop 07/20/19 at 10:44; Status DC Potassium Chloride/Water 100 ml @ 100 mls/hr Q1H IV Last administered on 07/20/19at 15:45; Start 07/20/19 at 09:45; Stop 07/20/19 at 13:44; Status DC Amiodarone HCl 450 mg/Dextrose 259 ml @ 0 mls/hr CONT PRN IV SEE I/O RECORD; Start 07/20/19 at 10:00; Status Cancel Lidocaine HCl (Lidocaine HCl 2% Abboject) 80 mg 1X ONCE IV Last administered on 07/20/19at 10:11; Start 07/20/19 at 10:00; Stop 07/20/19 at 10:03; Status DC Lidocaine HCl/ Dextrose 500 ml @ 0 mls/hr CONT PRN IV SEE I/O RECORD Last administered on 07/20/19at 10:15; Start 07/20/19 at 10:00; Stop 07/21/19 at 15:07; Status DC Furosemide (Lasix) 40 mg DAILY IVP Last administered on 07/22/19at 09:03; Start 07/21/19 at 09:00; Stop 07/22/19 at 12:54; Status DC Sodium Chloride 90 meq/Potassium Chloride 50 meq/ Potassium Phosphate 13.6 mmol/Magnesium Sulfate 10 meq/ Calcium Gluconate 10 meq/ Multivitamins 10 ml/Chromium/ Copper/Manganese/ Seleni/Zn 1 ml/ Total Parenteral Nutrition/Amino Acids/Dextrose/ Fat Emulsion Intravenous 1,512 ml @ 63 mls/hr TPN CONT IV Last administered on 07/20/19at 22:01; Start 07/20/19 at 22:00; Stop 07/21/19 at 21:59; Status DC Sodium Chloride 90 meq/Potassium Chloride 50 meq/ Potassium Phosphate 13.6 mmol/Magnesium Sulfate 10 meq/ Calcium Gluconate 10 meq/ Multivitamins 10 ml/Chromium/ Copper/Manganese/ Seleni/Zn 1 ml/ Total Parenteral Nutrition/Amino Acids/Dextrose/ Fat Emulsion Intravenous 1,512 ml @ 63 mls/hr TPN CONT IV ; Start 07/21/19 at 22:00; Stop 07/22/19 at 09:05; Status DC Potassium Chloride (Klor-Con) 40 meq 1X ONCE PO Last administered on 07/21/19at 15:38; Start 07/21/19 at 14:30; Stop 07/21/19 at 14:33; Status DC Amiodarone HCl (Cordarone) 400 mg DAILY PO Last administered on 07/25/19at 08:22; Start 07/22/19 at 09:00 Amiodarone HCl (Cordarone) 200 mg 1X ONCE PO Last administered on 07/21/19at 15:38; Start 07/21/19 at 15:15; Stop 07/21/19 at 15:16; Status DC Info (Tpn Per Pharmacy) 1 each PRN DAILY PRN MC SEE COMMENTS; Start 07/22/19 at 08:45; Status Cancel Piperacillin Sod/ Tazobactam Sod 3.375 gm/Sodium Chloride 50 ml @ 100 mls/hr Q6HRS IV Last administered on 07/25/19at 05:33; Start 07/22/19 at 12:00 Potassium Chloride (Klor-Con) 40 meq 1X ONCE PO Last administered on 07/22/19at 12:03; Start 07/22/19 at 11:45; Stop 07/22/19 at 11:47; Status DC Desmopressin Acetate (Ddavp) 4 mcg BID SQ Last administered on 07/23/19at 10:20; Start 07/22/19 at 14:00; Stop 07/23/19 at 09:01; Status DC Metoprolol Tartrate (Lopressor) 12.5 mg Q12HR PO Last administered on 07/25/19at 08:22; Start 07/23/19 at 21:00 Potassium Bicarbonate (Potassium Effervescent Tablet) 40 meq 1X ONCE PO Last administered on 07/23/19at 12:49; Start 07/23/19 at 10:15; Stop 07/23/19 at 10:16; Status DC Magnesium Sulfate 50 ml @ 25 mls/hr PRN DAILY PRN IV for Mag < 1.7 on am labs; Start 07/23/19 at 13:15 Potassium Chloride/Water 100 ml @ 50 mls/hr PRN Q6HRS PRN IV For K < 3.7 Last administered on 07/25/19at 06:28; Start 07/23/19 at 13:15 Potassium Chloride/Water 100 ml @ 50 mls/hr PRN Q2HR PRN IV total of 40mEq for K < 3.5 Last administered on 07/25/19at 03:18; Start 07/23/19 at 13:15 Amino Acids/ Glycerin/ Electrolytes 1,000 ml @ 50 mls/hr Q20H IV ; Start 07/23/19 at 13:15; Stop 07/23/19 at 17:04; Status DC Furosemide (Lasix) 40 mg [id number] IVP Last administered on 07/25/19at 08:21; Start 07/23/19 at 14:00 Dextrose 1,000 ml @ 75 mls/hr [id number] IV Last administered on 07/23/19at 17:09; Start 07/23/19 at 17:00; Stop 07/24/19 at 11:06; Status DC Nitroglycerin/ Dextrose 250 ml @ 1.5 mls/hr CONT PRN IV SEE I/O RECORD Last administered on 07/24/19at 08:05; Start 07/24/19 at 08:00 Potassium Chloride (Klor-Con) 40 meq 1X ONCE PO ; Start 07/24/19 at 11:00; Stop 07/24/19 at 11:04; Status DC Potassium Bicarbonate (Potassium Effervescent Tablet) 40 meq 1X ONCE PO Last administered on 07/24/19at 11:54; Start 07/24/19 at 12:00; Stop 07/24/19 at 12:01; Status DC Magnesium Sulfate 50 ml @ 25 mls/hr PRN DAILY PRN IV for Mag < 1.7 on am labs; Start 07/25/19 at 08:45 Magnesium Sulfate 50 ml @ 25 mls/hr 1X ONCE IV Last administered on 07/25/19at 10:05; Start 07/25/19 at 10:00; Stop 07/25/19 at 11:59 Active Scripts Active Toprol XL (Metoprolol Succinate) 50 Mg Tab.er.24h 50 Mg PO DAILY Metolazone 2.5 Mg Tablet 2.5 Mg PO QODAY Furosemide 40 Mg Tablet 40 Mg PO [id number] Klor-Con M20 (Potassium Chloride) 20 Meq Tab.er.prt 20 Meq PO BIDWMEALS Amiodarone Hcl 200 Mg Tablet 200 Mg PO DAILY Eliquis (Apixaban) 5 Mg Tablet 5 Mg PO BID Reported Acetaminophen 325 Mg Tablet 325 Mg PO Q6HRS Dicyclomine Hcl 10 Mg Capsule 1 Cap PO PRN TID PRN Nexium Capsule (Esomeprazole Magnesium) 40 Mg Capsule.dr 40 Mg PO DAILYAC Oxycodone Hcl Immed.release (Oxycodone Hcl) 15 Mg Tablet 15 Mg PO PRN Q12HR PRN Alprazolam 1 Mg Tablet 1 Tab PO BID Vitals/I & O Vital Sign - Last 24 Hours 07/24/19 07/24/19 07/24/19 07/24/19 11:00 11:36 12:00 12:00 Temp 100.6 100.6 Pulse 82 80 Resp 16 16 B/P (MAP) 118/56 (76) 126/57 (80) Pulse Ox 100 100 100 O2 Delivery Ventilator Ventilator Ventilator Mechanical Ventilator 07/24/19 07/24/19 07/24/19 07/24/19 12:00 12:52 13:00 13:20 Pulse 79 77 Resp 16 B/P (MAP) 124/56 (78) 97/47 (64) Pulse Ox 100 100 100 O2 Delivery Ventilator Ventilator O2 Flow Rate 15.0 07/23/07/24/19 5/ 5 13:22 14:00 15:00 15:34 Pulse 73 75 Resp 16 16 B/P (MAP) 97/46 (63) 125/56 (79) Pulse Ox 100 100 100 100 O2 Delivery Ventilator Ventilator Ventilator O2 Flow Rate 15.0 07/23/07/23/07/23/07/24/19 16:00 16:00 16:00 17:00 Temp 99.1 99.1 Pulse 81 79 66 Resp 19 16 B/P (MAP) 154/66 (95) 141/62 (88) 103/46 (65) Pulse Ox 100 100 O2 Delivery Ventilator Mechanical Ventilator Ventilator 07/24/19 07/24/1907/23/07/24/19 17:22 18:00 19:00 19:40 Pulse 66 67 Resp 16 16 B/P (MAP) 109/49 (69) 110/51 (70) Pulse Ox 100 100 100 100 O2 Delivery Ventilator Ventilator Ventilator Ventilator 07/24/19 07/24/19 07/24/19 07/24/19 19:45 19:45 20:00 20:33 Temp 98.9 98.9 Pulse 65 68 Resp 16 B/P (MAP) 96/47 (63) 96/47 (63) 117/51 Pulse Ox 100 O2 Delivery Mechanical Ventilator Ventilator O2 Flow Rate 15.0 07/24/19 07/24/19 07/24/19 07/25/19 21:00 22:00 23:00 00:00 Pulse 65 66 70 Resp 16 16 16 B/P (MAP) 96/45 (62) 105/48 (67) 123/55 (77) Pulse Ox 100 100 100 100 O2 Delivery Ventilator Ventilator Ventilator Ventilator 07/25/19 07/25/19 07/25/19 07/25/19 00:00 00:00 00:01 00:57 Temp 98.4 98.4 Pulse 79 79 68 Resp 16 16 B/P (MAP) 149/63 (91) 149/63 (91) 100/43 (62) Pulse Ox 100 100 O2 Delivery Mechanical Ventilator Ventilator Ventilator O2 Flow Rate 15.0 07/25/19 07/25/19 07/25/19 07/25/19 02:00 02:46 03:00 03:26 Pulse 66 68 Resp 16 16 16 16 B/P (MAP) 107/43 (64) 130/55 (80) Pulse Ox 100 100 100 100 O2 Delivery Ventilator Ventilator Ventilator Ventilator 07/25/19 07/25/19 07/25/19 07/25/19 04:00 04:00 04:00 05:00 Temp 99.6 99.6 Pulse 77 77 70 Resp 16 16 B/P (MAP) 149/56 (87) 149/56 (87) 128/56 (80) Pulse Ox 100 100 O2 Delivery Mechanical Ventilator Ventilator Ventilator 07/25/19 07/25/19 07/25/19 07/25/19 05:09 06:00 07:00 07:00 Temp 99.1 99.1 Pulse 73 78 Resp 16 19 B/P (MAP) 152/55 (87) 138/68 (91) 168/62 (97) Pulse Ox 100 100 99 O2 Delivery Ventilator Ventilator Ventilator 07/25/19 07/25/19 07/25/19 07/25/19 07:44 07:59 08:00 08:22 Pulse 84 84 Resp 22 B/P (MAP) 180/71 (107) 180/71 Pulse Ox 100 99 O2 Delivery Ventilator Mechanical Ventilator Ventilator 07/25/19 07/25/19 08:22 09:01 Pulse 84 90 Resp 30 B/P (MAP) 180/71 194/74 (114) Pulse Ox 100 O2 Delivery Ventilator Intake and Output 07/24/19 07/24/19 07/25/19 15:00 23:00 07:00 Intake Total 570 ml 1500.21 ml 1483 ml Output Total 1420 ml 1280 ml 595 ml Balance -850 ml 220.21 ml 888 ml RICK CAROLINA MD July 25, 2019 10:16
--- NOTE | 2019-07-25 10:38 | NUR ---
SS following up with discharge planning. SS reviewed pt chart and discussed with pt RN. Pt extubated today. Per RN, pt alert and oriented. PT/OT/ST ordered. SS will continue to follow for discharge planning.
--- NOTE | 2019-07-25 11:34 | PDOC ---
Renal-Progress Notes Subjective Notes Notes NO NEW COMPLAINTS, CONFUSED History of Present Illness Hx of present illness IMPROVED Vitals Vitals Vital Signs Date Time Temp Pulse Resp B/P (MAP) Pulse Ox O2 Delivery O2 Flow Rate FiO2 07/25/19 11:26 Nasal Cannula 2.0 07/25/19 11:00 81 22 162/65 (97) 100 07/25/19 07:00 99.1 99.1 Weight Weight [ ] I.O. Intake and Output Intake and Output 07/25/19 07:00 Intake Total 3553.21 ml Output Total 3295 ml Balance 258.21 ml IV Total 795.21 ml Tube Feeding 1558 ml Other 1200 ml Output Urine Total 3295 ml Gastric Drainage Total 0 ml Labs Labs Laboratory Tests Test 07/24/19 14:08 07/24/19 18:17 07/25/19 00:01 07/25/19 05:30 Potassium Level 3.7 mmol/L (3.5-5.1) 3.3 mmol/L (3.5-5.1) 3.2 mmol/L (3.5-5.1) 3.6 mmol/L (3.5-5.1) White Blood Count 4.8 x10^3/uL (4.0-11.0) Red Blood Count 3.64 x10^6/uL (4.30-5.70) Hemoglobin 11.0 g/dL (13.0-17.5) Hematocrit 32.1 % (39.0-53.0) Mean Corpuscular Volume 88 fL (79-100) Mean Corpuscular Hemoglobin 30 pg (25-35) Mean Corpuscular Hemoglobin Concent 34 g/dL (31-37) Red Cell Distribution Width 16.3 % (11.5-14.5) Platelet Count 134 x10^3/uL (140-400) Neutrophils (%) (Auto) 68 % (31-73) Lymphocytes (%) (Auto) 16 % (24-48) Monocytes (%) (Auto) 11 % (0-9) Eosinophils (%) (Auto) 4 % (0-3) Basophils (%) (Auto) 1 % (0-3) Neutrophils # (Auto) 3.3 x10^3/uL (1.8-7.7) Lymphocytes # (Auto) 0.8 x10^3/uL (1.0-4.8) Monocytes # (Auto) 0.5 x10^3/uL (0.0-1.1) Eosinophils # (Auto) 0.2 x10^3/uL (0.0-0.7) Basophils # (Auto) 0.0 x10^3/uL (0.0-0.2) Sodium Level 145 mmol/L (136-145) Chloride Level 107 mmol/L (98-107) Carbon Dioxide Level 31 mmol/L (21-32) Anion Gap 7 (6-14) Blood Urea Nitrogen 51 mg/dL (8-26) Creatinine 1.8 mg/dL (0.7-1.3) Estimated GFR (Cockcroft-Gault) 37.2 Glucose Level 95 mg/dL (70-99) Calcium Level 7.7 mg/dL (8.5-10.1) Magnesium Level 1.7 mg/dL (1.8-2.4) Micro Micro Microbiology 07/17/19 Urine Culture - Final, Complete 07/17/19 Urine Culture Result 1 (BOYD) - Final, Complete 07/17/19 Blood Culture - Final, Complete NO GROWTH AFTER 5 DAYS 07/17/19 Nose/Throat Culture - Final, Complete 07/17/19 - Final, Complete Review of Systems Constitutional: yes: weakness, alert, oriented Ears/Nose/Throat: Yes: no symptom reported Eyes: Yes: no symptom reported Pulmonary: Yes dyspnea Cardiovascular: Yes no symptom reported, Yes edema Gastrointestional: Yes: constipation Genitourinary: Yes: no symptom reported Musculoskeletal: Yes: muscle stiffness Skin: Yes no symptom reported Psychiatric/Neurological: Yes: no symptom reported Endocrine: Yes: no symptom reported Physical Exam General Appearance: no apparent distress Skin: warm, edema Respiratory: decreased breath sounds Heart: S1S2 Abdomen: soft, bowel sounds present Genitourinary: bladder flat Extremities: pulses present Neurology: alert, confused, other (sedated/intubated) Musculoskeletal: Osteoarthritis Assessment Assessment IMP [id number] WITH CR DOWN TO 1.9 FROM 3.3 ACUTE HYPOXEMIC HYPERCARBIC RESP FAILURE ACUTE CHF-SYSTOLIC CHRONIC LE EDEMA AFIB-S/P RECENT CARDIOVERSION HYPOTENSION-RESOLVED HTN-CURRENTLY S/P CODE BLUE HYPOMAGNESEMIA PLAN CONT IV LASIX REPLACE MAG AND K NEEDED SUPPLEMENTAL O2 PULM EVAL AND TX AGREE WITH CA CHANNEL LINDA WILL FOLLOW KERA SABILLON MD July 25, 2019 11:34
--- NOTE | 2019-07-25 12:03 | RAD ---
KUB History: Feeding tube. Technique: Supine view the abdomen. Comparison: July 25, 2019 chest x-ray. Findings: Feeding tube looped within the stomach with tip projecting over the mid stomach. Several mildly prominent air-filled loops of small bowel within the left lower abdomen. Air and stool scattered throughout the imaged colon. Patchy left basilar opacity better evaluated on chest x-ray. Surgical clips right upper quadrant. Lower lumbar spondylosis. Impression: 1. Feeding tube looped within the stomach. Electronically signed by: Beni Villalobos DO (07/25/2019 12:00 PM) [id number]
[2019-07-25 12:45] LABS: FIO2 ABG 40% PS 10 PEEP 5
[2019-07-25] MEDS: amLODIPine BESYLATE 5 MG TABLET FT SCH (13:11)
--- NOTE | 2019-07-25 14:08 | PDOC ---
DEVIN GLOVER CYLINDER MACHINE OPERATOR PULP DRIER 07/25/19 1408: CARDIO Progress Notes Date and Time Date of Service 07/25/19 Time of Evaluation 1400 Subjective Subjective: No Chest Pain, No shortness of breath, Other (extubated) Vitals Vitals Vital Signs Date Time Temp Pulse Resp B/P (MAP) Pulse Ox O2 Delivery O2 Flow Rate FiO2 07/25/19 13:11 78 160/69 07/25/19 12:00 99.0 19 100 Nasal Cannula 2.0 99.0 Weight Weight [ ] Input and Output Intake and Output Intake and Output 07/25/19 07:00 Intake Total 3553.21 ml Output Total 3295 ml Balance 258.21 ml IV Total 795.21 ml Tube Feeding 1558 ml Other 1200 ml Output Urine Total 3295 ml Gastric Drainage Total 0 ml Laboratory Labs Laboratory Tests Test 07/24/19 14:08 07/24/19 18:17 07/25/19 00:01 07/25/19 05:30 Potassium Level 3.7 mmol/L (3.5-5.1) 3.3 mmol/L (3.5-5.1) 3.2 mmol/L (3.5-5.1) 3.6 mmol/L (3.5-5.1) White Blood Count 4.8 x10^3/uL (4.0-11.0) Red Blood Count 3.64 x10^6/uL (4.30-5.70) Hemoglobin 11.0 g/dL (13.0-17.5) Hematocrit 32.1 % (39.0-53.0) Mean Corpuscular Volume 88 fL (79-100) Mean Corpuscular Hemoglobin 30 pg (25-35) Mean Corpuscular Hemoglobin Concent 34 g/dL (31-37) Red Cell Distribution Width 16.3 % (11.5-14.5) Platelet Count 134 x10^3/uL (140-400) Neutrophils (%) (Auto) 68 % (31-73) Lymphocytes (%) (Auto) 16 % (24-48) Monocytes (%) (Auto) 11 % (0-9) Eosinophils (%) (Auto) 4 % (0-3) Basophils (%) (Auto) 1 % (0-3) Neutrophils # (Auto) 3.3 x10^3/uL (1.8-7.7) Lymphocytes # (Auto) 0.8 x10^3/uL (1.0-4.8) Monocytes # (Auto) 0.5 x10^3/uL (0.0-1.1) Eosinophils # (Auto) 0.2 x10^3/uL (0.0-0.7) Basophils # (Auto) 0.0 x10^3/uL (0.0-0.2) Sodium Level 145 mmol/L (136-145) Chloride Level 107 mmol/L (98-107) Carbon Dioxide Level 31 mmol/L (21-32) Anion Gap 7 (6-14) Blood Urea Nitrogen 51 mg/dL (8-26) Creatinine 1.8 mg/dL (0.7-1.3) Estimated GFR (Cockcroft-Gault) 37.2 Glucose Level 95 mg/dL (70-99) Calcium Level 7.7 mg/dL (8.5-10.1) Magnesium Level 1.7 mg/dL (1.8-2.4) Test 07/25/19 09:30 07/25/19 12:15 O2 Saturation 96 % (92-99) Arterial Blood pH 7.42 (7.35-7.45) Arterial Blood pCO2 at Patient Temp 45 mmHg (35-46) Arterial Blood pO2 at Patient Temp 91 mmHg (65-108) Arterial Blood HCO3 29 mmol/L (21-28) Arterial Blood Base Excess 3 mmol/L (-3-3) FiO2 40% ps 10 peep 5 Potassium Level 3.4 mmol/L (3.5-5.1) Microbiology Micro Microbiology 07/17/19 Urine Culture - Final, Complete 07/17/19 Urine Culture Result 1 (BOYD) - Final, Complete 07/17/19 Blood Culture - Final, Complete NO GROWTH AFTER 5 DAYS 07/17/19 Nose/Throat Culture - Final, Complete 07/17/19 - Final, Complete Review of Systems Constitutional: yes: weakness, alert, oriented Ears/Nose/Throat: Yes: no symptom reported Eyes: Yes: no symptom reported Pulmonary: Yes dyspnea Cardiovascular: Yes no symptom reported, Yes edema Gastrointestional: Yes: constipation Genitourinary: Yes: no symptom reported Musculoskeletal: Yes: muscle stiffness Skin: Yes no symptom reported Psychiatric/Neurological: Yes: no symptom reported Endocrine: Yes: no symptom reported Physical Exam HEENT: Neck Supple W Full Motion Chest: Symmetric LUNGS: Other (diminished bases) Heart: RRR (SR) Abdomen: Soft N/T Extremities: Other (1+ bilateral LE edema) Neurology: alert, follow commands, confused Assessment Assessment 1. Acute on chronic respiratory failure with a/c CHF, PNA. Extubated this am 2. Acute on chronic systolic CHF 3. ICM/NICM; EF better at 40-45% 4. CAD; s/p PCI/DARSHAN to the RCA 5. Septic shock; off pressors 6 DONTAE on CKD; cardiorenal syndrome. Cr better at 1.8 7. Arrhythmia: noted with PAFIB/RVR and polymorphic VT requiring multiple CV's 8. Hematuria, hemoptysis Recommendations Continue Amiodarone for rhythm maintenance Eliquis on hold. Will hold Brilinta for now as well given hemoptysis Continue ASA for now. Lasix therapy. Keep Mg > 2.0 and K > 4.0 Norvasc added for BP control No ACEi with DONTAE/CKD Supportive care When bleeding issues have resolved, resume dual therapy with Eliquis and Brilinta and discontinue ASA therapy VENU YODER MD 07/25/19 1653: CARDIO Progress Notes Plan Plan Pt. seen and examined. Agree with above WEB FEEDER note. He is still confused at times. Continue present meds. Supportive care. Will follow along. antiplatelet/anticoagulation plan as above. DEVIN GLOVER APRN July 25, 2019 14:08 VENU YODER MD July 25, 2019 16:53
[2019-07-25] MEDS: POTASSIUM CHLORIDE 20MEQ 100 ML IV SCH ×2 (14:31→16:01)
--- NOTE | 2019-07-25 17:00 | NUR ---
pt extubated to 2l nc. without difficulty. able to place dobhoff in right nare with pt cooperating and confirmed by kub. tube feedings started via dobhoff. pt coughing up dark red colored sputum/clots. berlinta and eliquis both off of pt. aspirin continued. labs ordered. pt in afternoon became confused. thinks he is in [place]. wanting to know if the war is over yet. cousin, chelsea, came and seen pt. pt reoriented while cousin here and pts glasses found in his belongings. need to continue to reorient. pt having difficulty working the call light and tv control.
[2019-07-26] VITALS (18 sets, daily range): BP systolic 75–187; BP diastolic 46–91
[2019-07-26 02:21] LABS: BASO % 1 % (0-3); EOS # 0.1 x10^3/uL (0.0-0.7); EOS % 2 % (0-3); HEMATOCRIT 37.2 % (39.0-53.0); HEMOGLOBIN 12.5 g/dL (13.0-17.5); LYMPH # 0.6 x10^3/uL (1.0-4.8); LYMPH % 10 % (24-48); MEAN CORPUSCULAR HEMOGLOBIN 30 pg (25-35); MEAN CORPUSCULAR HGB CONC 34 g/dL (31-37); MEAN CORPUSCULAR VOLUME 88 fL (79-100); MONO # 0.5 x10^3/uL (0.0-1.1); MONO % 9 % (0-9); NEUT # 4.6 x10^3/uL (1.8-7.7); NEUT % 78 % (31-73); PLATELET COUNT 186 x10^3/uL (140-400); RED BLOOD COUNT 4.24 x10^6/uL (4.30-5.70); RED CELL DISTRIBUTION WIDTH 16.3 % (11.5-14.5); WHITE BLOOD COUNT 5.9 x10^3/uL (4.0-11.0)
[2019-07-26 02:36] LABS: CALCIUM 8.1 mg/dL (8.5-10.1); CREATININE 1.6 mg/dL (0.7-1.3); GFR 42.6; MAGNESIUM 1.8 mg/dL (1.8-2.4); PHOSPHORUS 2.9 mg/dL (2.6-4.7); POTASSIUM 3.2 mmol/L (3.5-5.1)
[2019-07-26] MEDS: POTASSIUM CHLORIDE 20MEQ 100 ML IV PRN ×2 (03:16→06:15)
[2019-07-26] MEDS: PIPERACILLIN/TAZOBACTAM 3.375 GM in IV NORMAL SALINE 50ML 50 ML IV SCH (05:33)
--- NOTE | 2019-07-26 07:30 | RAD ---
EXAM: CHEST ONE VIEW. HISTORY: Hemoptysis. COMPARISON: 07/25/2019. FINDINGS: A frontal view of the chest is obtained. A nasogastric tube has its tip below the inferior margin of the view. A left internal jugular central venous catheter has its tip in the in the junction of the brachiocephalic veins. Anterior cervical discectomy and fusion changes are noted. Airspace opacities in both lung bases may reflect atelectasis or aspiration pneumonitis in the setting of hemoptysis. Small pleural effusions are suspected. There is no pneumothorax. The heart is not enlarged. IMPRESSION: 1. Bibasilar infiltrates may reflect atelectasis or aspiration the setting of hemoptysis. Electronically signed by: Jamel Chino MD (07/26/2019 7:02 AM) [facility]
--- NOTE | 2019-07-26 08:32 | PDOC ---
Infectious Disease Note Subjective: Subjective Awake and calm Denies pain Had bloodstained sputum Extubated yesterday Remains afebrile Vital Signs: Vital Signs Vital Signs Date Time Temp Pulse Resp B/P (MAP) Pulse Ox O2 Delivery O2 Flow Rate FiO2 07/26/19 06:17 80 24 170/91 (117) 100 Nasal Cannula 2.0 07/26/19 00:10 98.1 98.1 Physical Exam: PHYSICAL EXAM GENERAL: Awake, alert HEENT: No thrush, no icterus, no conjunctival petechia NECK: Supple. LUNGS: Clear anteriorly HEART: S1, S2. regular ABDOMEN: Soft, bowel sounds present, no guarding : Antunez in place EXTREMITIES: Trace edema, no cyanosis. DERMATOLOGIC: Warm, dry. No generalized rash. NEUROLOGIC: Alert, responsive LIJ without signs of complications Medications: Inpatient Meds: Current Medications Medications (Trade) Dose Ordered Sig/Chance Start Time Stop Time Status Last Admin Dose Admin Acetaminophen (Tylenol) 650 mg PRN Q6HRS PRN 07/17/19 10:30 Alprazolam (Xanax) 1 mg BID 07/17/19 21:00 07/25/19 22:08 1 MG Amino Acids/ Glycerin/ Electrolytes 1,000 ml @ 50 mls/hr Q20H 07/23/19 13:15 07/23/19 17:04 DC Amiodarone HCl (Cordarone) 200 mg 1X ONCE 07/21/19 15:15 07/21/19 15:16 DC 07/21/19 15:38 200 MG Amiodarone HCl 150 mg/Dextrose 103 ml @ 618 mls/hr 1X ONCE 07/19/19 12:00 07/19/19 12:09 DC 07/19/19 12:15 618 MLS/HR Amiodarone HCl 450 mg/Dextrose 259 ml @ 0 mls/hr CONT PRN 07/20/19 10:00 Cancel Amlodipine Besylate (Norvasc) 2.5 mg DAILY 07/25/19 11:00 07/25/19 13:11 2.5 MG Apixaban (Eliquis) 5 mg BID 07/17/19 21:00 07/23/19 10:05 DC 07/23/19 08:17 5 MG Aspirin (Aspirin Chewable) 81 mg [id number] 07/20/19 08:00 5/26/20 08:21 81 MG Aspirin (Aspirin Rectal Supp) 300 mg 1X ONCE 07/17/19 05:45 07/17/19 05:46 DC 07/17/19 06:01 300 MG Atropine Sulfate (ATROPINE 0.5mg SYRINGE) 0.5 mg PRN Q5MIN PRN 07/17/19 11:00 07/25/19 18:27 DC Bumetanide (Bumex) 1 mg 1X ONCE 07/17/19 06:00 07/17/19 06:01 DC 07/17/19 06:00 1 MG Desmopressin Acetate (Ddavp) 4 mcg BID 07/22/19 14:00 07/23/19 09:01 DC 07/23/19 10:20 4 MCG Dexmedetomidine HCl 400 mcg/ Sodium Chloride 100 ml @ 0 mls/hr CONT PRN 07/17/19 11:00 07/25/19 18:27 DC 07/20/19 13:31 8.5 MLS/HR Dextrose 1,000 ml @ 75 mls/hr [id number] 07/23/19 17:00 07/24/19 11:06 DC 07/23/19 17:09 75 MLS/HR Digoxin (Lanoxin) 250 mcg 1X ONCE 07/19/19 04:10 07/19/19 06:15 DC 07/19/19 04:15 250 MCG Epinephrine HCl (EPINEPHrine SYRINGE) 4 mg STK-MED ONCE 07/18/19 16:08 07/19/19 16:08 DC Epinephrine HCl 5 mg/Sodium Chloride 255 ml @ 32.926 mls/ hr CONT PRN 07/18/19 14:00 07/24/19 11:06 DC Etomidate (Amidate) 20 mg 1X ONCE 07/17/19 04:45 07/17/19 04:46 DC 07/17/19 04:43 20 MG Furosemide (Lasix) 40 mg [id number] 07/23/19 14:00 07/25/19 13:12 40 MG Heparin Sodium (Porcine) (Heparin Sodium) 7,000 unit 1X ONCE 07/18/19 14:45 07/18/19 14:52 DC 07/18/19 14:45 7,000 UNIT Heparin Sodium/ Sodium Chloride 500 ml @ As Directed STK-MED ONCE 07/18/19 15:11 07/18/19 15:11 DC Heparin Sodium/ Sodium Chloride (HEPARIN for ARTERIAL LINE FLUSH) 1,000 unit 1X ONCE 07/18/19 14:45 07/18/19 14:52 DC 07/18/19 14:45 1,000 UNIT Info (Anti-Coagulation Monitoring By Pharmacy) 1 each PRN DAILY PRN 07/18/19 08:00 07/20/19 14:42 1 EACH Info (Tpn Per Pharmacy) 1 each PRN DAILY PRN 07/22/19 08:45 Cancel Insulin Human Lispro (HumaLOG) 0-6 UNITS Q6HRS 07/17/19 12:00 07/23/19 10:06 DC Iodixanol (Visipaque 320) 100 ml 1X ONCE 07/18/19 14:45 07/18/19 14:52 DC 07/18/19 14:45 104 ML Lansoprazole (Prevacid) 30 mg DAILY 07/18/19 09:00 07/25/19 08:23 30 MG Lidocaine HCl (Lidocaine 1% 20ml Vial) 20 ml 1X ONCE 07/18/19 14:45 07/18/19 14:52 DC 07/18/19 14:45 10 ML Lidocaine HCl (Lidocaine HCl 2% Abboject) 80 mg 1X ONCE 07/20/19 10:00 07/20/19 10:03 DC 07/20/19 10:11 80 MG Lidocaine HCl (Xylocaine-Mpf 1% 2ml Vial) 2 ml STK-MED ONCE 07/18/19 13:05 07/18/19 13:05 DC Lidocaine HCl/ Dextrose 500 ml @ 0 mls/hr CONT PRN 07/20/19 10:00 07/21/19 15:07 DC 07/20/19 10:15 15 MLS/HR Linezolid/Dextrose 300 ml @ 300 mls/hr Q12HR 07/18/19 09:00 07/20/19 08:25 DC 07/19/19 21:29 300 MLS/HR Magnesium Hydroxide (Milk Of Magnesia) 2,400 mg PRN DAILY PRN 07/17/19 10:30 Magnesium Sulfate 50 ml @ 25 mls/hr 1X ONCE 07/25/19 10:00 07/25/19 11:59 DC 07/25/19 10:05 25 MLS/HR Magnesium Sulfate/ Dextrose 100 ml @ 100 mls/hr 1X ONCE 07/20/19 09:45 07/20/19 10:44 DC 07/20/19 11:43 100 MLS/HR Metolazone (Zaroxolyn) 2.5 mg QODAY 07/19/19 09:00 07/18/19 10:36 DC Metoprolol Tartrate (Lopressor) 12.5 mg Q12HR 07/23/19 21:00 07/25/19 22:09 12.5 MG Midazolam HCl 100 ml @ 0 mls/hr CONT PRN 07/17/19 07:15 07/25/19 18:27 DC 07/22/19 23:41 5 MLS/HR Milrinone Lactate/ Dextrose 100 ml @ 0 mls/hr CONT PRN 07/18/19 07:15 07/23/19 10:03 DC 07/20/19 02:37 4.2 MLS/HR Morphine Sulfate 30 ml @ 0 mls/hr CONT PRN PRN 07/18/19 12:45 07/25/19 18:27 DC 07/25/19 02:46 2 MLS/HR Morphine Sulfate (Morphine Sulfate) 4 mg PRN Q1HR PRN 07/17/19 11:15 07/18/19 13:53 4 MG Nitroglycerin (Nitrostat) 0.4 mg 1X ONCE 07/17/19 04:30 07/17/19 04:43 DC 07/17/19 04:29 0.4 MG Nitroglycerin/ Dextrose 250 ml @ 1.5 mls/hr CONT PRN 07/24/19 08:00 07/24/19 08:05 1.5 MLS/HR Norepinephrine Bitartrate 32 mg/ Dextrose 282 ml @ 0 mls/hr CONT PRN 07/18/19 11:15 07/23/19 10:05 DC 07/19/19 10:39 9 MLS/HR Norepinephrine Bitartrate 8 mg/ Dextrose 258 ml @ 0 mls/hr CONT PRN 07/17/19 06:30 07/18/19 13:40 DC 07/17/19 21:52 11 MLS/HR Ondansetron HCl (Zofran) 4 mg PRN Q8HRS PRN 07/17/19 06:00 5/19/20 05:59 DC Piperacillin Sod/ Tazobactam Sod 2.25 gm/Sodium Chloride 50 ml @ 100 mls/hr Q6HRS 07/17/19 18:00 07/22/19 08:47 DC 07/22/19 05:46 100 MLS/HR Piperacillin Sod/ Tazobactam Sod 3.375 gm/Sodium Chloride 50 ml @ 100 mls/hr Q8HRS 07/25/19 14:00 07/26/19 05:33 100 MLS/HR Piperacillin Sod/ Tazobactam Sod 4.5 gm/Sodium Chloride 100 ml @ 200 mls/hr 1X ONCE 07/17/19 06:00 07/17/19 06:29 DC 07/17/19 11:14 200 MLS/HR Potassium Bicarbonate (Potassium Effervescent Tablet) 40 meq 1X ONCE 07/24/19 12:00 07/24/19 12:01 DC 07/24/19 11:54 40 MEQ Potassium Chloride/Water 100 ml @ 100 mls/hr Q1H 07/25/19 15:00 07/25/19 16:59 DC 07/25/19 16:01 100 MLS/HR Potassium Chloride (Klor-Con) 40 meq 1X ONCE 07/24/19 11:00 07/24/19 11:04 DC Propofol 100 ml @ 0 mls/hr CONT PRN 07/17/19 05:15 07/25/19 18:27 DC 07/24/19 18:33 10.9 MLS/HR Rocuronium Paia (Zemuron) 50 mg 1X ONCE 07/17/19 04:45 07/17/19 04:46 DC 07/17/19 04:44 50 MG Sodium Chloride 90 meq/Potassium Chloride 50 meq/ Potassium Phosphate 13.6 mmol/Magnesium Sulfate 10 meq/ Calcium Gluconate 10 meq/ Multivitamins 10 ml/Chromium/ Copper/Manganese/ Seleni/Zn 1 ml/ Total Parenteral Nutrition/Amino Acids/Dextrose/ Fat Emulsion Intravenous 1,512 ml @ 63 mls/hr TPN CONT 07/21/19 22:00 07/22/19 09:05 DC Ticagrelor (Brilinta) 90 mg 1X ONCE 07/19/19 17:00 07/19/19 17:07 DC 07/19/19 17:28 90 MG Vancomycin HCl (Vanco Per Pharmacy) 1 each PRN DAILY PRN 07/17/19 06:00 07/17/19 10:41 DC 07/17/19 06:43 1 EACH Vancomycin HCl (Vancomycin Trough Level) 1 each 1X ONCE 07/19/19 06:00 07/19/19 06:01 Cancel Vancomycin HCl 1.75 gm/Sodium Chloride 500 ml @ 250 mls/hr Q24H 07/18/19 06:30 07/17/19 10:38 DC Vancomycin HCl 2 gm/Sodium Chloride 500 ml @ 250 mls/hr 1X ONCE 07/17/19 06:00 07/17/19 07:59 DC 07/17/19 06:15 250 MLS/HR Vecuronium Paia (Norcuron Bolus) 20 mg STK-MED ONCE 07/18/19 12:00 07/19/19 08:48 DC Labs: Lab Laboratory Tests Test 07/25/19 09:30 07/25/19 12:15 07/25/19 18:00 07/26/19 02:10 O2 Saturation 96 % (92-99) Arterial Blood pH 7.42 (7.35-7.45) Arterial Blood pCO2 at Patient Temp 45 mmHg (35-46) Arterial Blood pO2 at Patient Temp 91 mmHg (65-108) Arterial Blood HCO3 29 mmol/L (21-28) Arterial Blood Base Excess 3 mmol/L (-3-3) FiO2 40% ps 10 peep 5 Potassium Level 3.4 mmol/L (3.5-5.1) 3.7 mmol/L (3.5-5.1) 3.2 mmol/L (3.5-5.1) Magnesium Level 2.2 mg/dL (1.8-2.4) 1.8 mg/dL (1.8-2.4) White Blood Count 5.9 x10^3/uL (4.0-11.0) Red Blood Count 4.24 x10^6/uL (4.30-5.70) Hemoglobin 12.5 g/dL (13.0-17.5) Hematocrit 37.2 % (39.0-53.0) Mean Corpuscular Volume 88 fL (79-100) Mean Corpuscular Hemoglobin 30 pg (25-35) Mean Corpuscular Hemoglobin Concent 34 g/dL (31-37) Red Cell Distribution Width 16.3 % (11.5-14.5) Platelet Count 186 x10^3/uL (140-400) Neutrophils (%) (Auto) 78 % (31-73) Lymphocytes (%) (Auto) 10 % (24-48) Monocytes (%) (Auto) 9 % (0-9) Eosinophils (%) (Auto) 2 % (0-3) Basophils (%) (Auto) 1 % (0-3) Neutrophils # (Auto) 4.6 x10^3/uL (1.8-7.7) Lymphocytes # (Auto) 0.6 x10^3/uL (1.0-4.8) Monocytes # (Auto) 0.5 x10^3/uL (0.0-1.1) Eosinophils # (Auto) 0.1 x10^3/uL (0.0-0.7) Basophils # (Auto) 0.0 x10^3/uL (0.0-0.2) Sodium Level 143 mmol/L (136-145) Chloride Level 104 mmol/L (98-107) Carbon Dioxide Level 36 mmol/L (21-32) Anion Gap 3 (6-14) Blood Urea Nitrogen 37 mg/dL (8-26) Creatinine 1.6 mg/dL (0.7-1.3) Estimated GFR (Cockcroft-Gault) 42.6 Glucose Level 130 mg/dL (70-99) Calcium Level 8.1 mg/dL (8.5-10.1) Phosphorus Level 2.9 mg/dL (2.6-4.7) Objective: Assessment: 1. Sepsis. 2. Leukocytosis. 3. Lactic acidosis. 4. Acute hypoxic respiratory failure, status post intubation. Bilateral pulmonary infiltrates 5. Congestive heart failure. s/p VT arrest 07/17 s/p PCI with stent placement 6. Cardiomyopathy. 7. DONTAE on Chronic kidney disease. 8. Gastroesophageal reflux disease. 9. On amiodarone. 10. COVID neg Plan: Plan of Care DC Zosyn July 25 off Zyvox; s/p 1 dose of vancomycin Cultures neg Maintain aspiration precautions Supportive care Discussed with nurse MARGRET DORSEY MD July 26, 2019 08:32
[2019-07-26] MEDS: amLODIPine BESYLATE 5 MG TABLET FT SCH (09:16)
[2019-07-26] MEDS: ALPRAZolam 0.5 MG TABLET FT SCH ×2 (09:17→20:27)
[2019-07-26] MEDS: METOPROLOL TART IMMED RELEASE 25 MG TABLET. PO SCH ×2 (09:17→20:28)
[2019-07-26] MEDS: ASPIRIN CHEWABLE 81 MG TABLET. PO SCH (09:17)
[2019-07-26] MEDS: AMIODARONE HCL 200 MG TABLET. PO SCH (09:17)
[2019-07-26] MEDS: LANSOPRAZOLE 30 MG TAB.RAP.DR FT SCH (09:17)
[2019-07-26] MEDS: FUROSEMIDE 40 MG/4 ML VIAL. IVP SCH ×2 (09:18→15:03)
--- NOTE | 2019-07-26 09:42 | PDOC ---
SABINO REYNAGA VEGETABLE GRADER 07/26/19 0942: CARDIO Progress Notes Date and Time Date of Service 07/26/2019 Time of Evaluation 09 Subjective Subjective: No Chest Pain, No shortness of breath, No Palpitations Vitals Vitals Vital Signs Date Time Temp Pulse Resp B/P (MAP) Pulse Ox O2 Delivery O2 Flow Rate FiO2 07/26/19 09:17 80 145/79 07/26/19 06:17 24 100 Nasal Cannula 2.0 07/26/19 00:10 98.1 98.1 Weight Weight [ ] Input and Output Intake and Output Intake and Output 07/26/19 07:00 Intake Total 3262 ml Output Total 6655 ml Balance -3393 ml Intake Oral 0 ml IV Total 620 ml Tube Feeding 1562 ml Other 1080 ml Output Urine Total 6655 ml Laboratory Labs Laboratory Tests Test 07/25/19 12:15 07/25/19 18:00 07/26/19 02:10 Potassium Level 3.4 mmol/L (3.5-5.1) 3.7 mmol/L (3.5-5.1) 3.2 mmol/L (3.5-5.1) Magnesium Level 2.2 mg/dL (1.8-2.4) 1.8 mg/dL (1.8-2.4) White Blood Count 5.9 x10^3/uL (4.0-11.0) Red Blood Count 4.24 x10^6/uL (4.30-5.70) Hemoglobin 12.5 g/dL (13.0-17.5) Hematocrit 37.2 % (39.0-53.0) Mean Corpuscular Volume 88 fL (79-100) Mean Corpuscular Hemoglobin 30 pg (25-35) Mean Corpuscular Hemoglobin Concent 34 g/dL (31-37) Red Cell Distribution Width 16.3 % (11.5-14.5) Platelet Count 186 x10^3/uL (140-400) Neutrophils (%) (Auto) 78 % (31-73) Lymphocytes (%) (Auto) 10 % (24-48) Monocytes (%) (Auto) 9 % (0-9) Eosinophils (%) (Auto) 2 % (0-3) Basophils (%) (Auto) 1 % (0-3) Neutrophils # (Auto) 4.6 x10^3/uL (1.8-7.7) Lymphocytes # (Auto) 0.6 x10^3/uL (1.0-4.8) Monocytes # (Auto) 0.5 x10^3/uL (0.0-1.1) Eosinophils # (Auto) 0.1 x10^3/uL (0.0-0.7) Basophils # (Auto) 0.0 x10^3/uL (0.0-0.2) Sodium Level 143 mmol/L (136-145) Chloride Level 104 mmol/L (98-107) Carbon Dioxide Level 36 mmol/L (21-32) Anion Gap 3 (6-14) Blood Urea Nitrogen 37 mg/dL (8-26) Creatinine 1.6 mg/dL (0.7-1.3) Estimated GFR (Cockcroft-Gault) 42.6 Glucose Level 130 mg/dL (70-99) Calcium Level 8.1 mg/dL (8.5-10.1) Phosphorus Level 2.9 mg/dL (2.6-4.7) Microbiology Micro Microbiology 07/17/19 Urine Culture - Final, Complete 07/17/19 Urine Culture Result 1 (BYOD) - Final, Complete 07/17/19 Blood Culture - Final, Complete NO GROWTH AFTER 5 DAYS 07/17/19 Nose/Throat Culture - Final, Complete 07/17/19 - Final, Complete Review of Systems Constitutional: yes: weakness, alert, oriented Ears/Nose/Throat: Yes: no symptom reported Eyes: Yes: no symptom reported Pulmonary: Yes dyspnea Cardiovascular: Yes no symptom reported, Yes edema Gastrointestional: Yes: constipation Genitourinary: Yes: no symptom reported Musculoskeletal: Yes: muscle stiffness Skin: Yes no symptom reported Psychiatric/Neurological: Yes: no symptom reported Endocrine: Yes: no symptom reported Physical Exam HEENT: Neck Supple W Full Motion Chest: Symmetric LUNGS: Other (diminished, bipap) Heart: RRR (SR with no significant ectopies overnight) Abdomen: Soft N/T Extremities: Other (1+ bilateral LE edema) Neurology: alert, oriented, follow commands, confused Assessment Assessment 1. Acute on chronic respiratory failure with a/c CHF, PNA. COVID negative. Extubated 07/25/2019 2. Acute on chronic systolic CHF: improved 3. ICM/NICM; EF better at 40-45%, better compensated 4. CAD; s/p PCI/DARSHAN to the RCA 5. Septic shock; off pressors 6 DONTAE on CKD; cardiorenal syndrome. Cr better at 1.6 7. Arrhythmia: prior polymorphic VT with multiple post CVN, none further 8. PAFIB: maintaining SR 9. Hemoptysis: pulmonary following Recommendations 1. Continue amiodarone/metoprolol via dobhoff. Remains NPO 2. Continue ASA. hold brilinta and eliquis for now due to hemoptysis, will reeval tomorrow. 3. Secondary prevention measures 4. Lasix therapy. Keep Mg and K at least 2.0 and 4.0 respectively, replace as warranted VENU YODER MD 07/27/19 0802: CARDIO Progress Notes Plan Plan Late entry for 07/26/2019 Pt. seen and examined. Agree with above HELI[facility] WELDER note. Supportive care. SABINO REYNAGA APRN July 26, 2019 09:42 VENU YODER MD July 27, 2019 08:02
--- NOTE | 2019-07-26 09:44 | PDOC ---
PULMONARY PROGRESS NOTES Subjective Awake and alert following commands this am, extubated 07/24 Vitals Vital Signs Date Time Temp Pulse Resp B/P (MAP) Pulse Ox O2 Delivery O2 Flow Rate FiO2 07/26/19 09:17 80 145/79 07/26/19 06:17 24 100 Nasal Cannula 2.0 07/26/19 00:10 98.1 98.1 General: Alert, No acute distress Lungs: Crackles Cardiovascular: S1, S2 Abdomen: Soft, Non-tender Extremities: Other (BLE +1 edema ) Skin: Warm Labs Laboratory Tests Test 07/24/19 14:08 07/24/19 18:17 07/25/19 00:01 07/25/19 05:30 Potassium Level 3.7 mmol/L (3.5-5.1) 3.3 mmol/L (3.5-5.1) 3.2 mmol/L (3.5-5.1) 3.6 mmol/L (3.5-5.1) White Blood Count 4.8 x10^3/uL (4.0-11.0) Red Blood Count 3.64 x10^6/uL (4.30-5.70) Hemoglobin 11.0 g/dL (13.0-17.5) Hematocrit 32.1 % (39.0-53.0) Mean Corpuscular Volume 88 fL (79-100) Mean Corpuscular Hemoglobin 30 pg (25-35) Mean Corpuscular Hemoglobin Concent 34 g/dL (31-37) Red Cell Distribution Width 16.3 % (11.5-14.5) Platelet Count 134 x10^3/uL (140-400) Neutrophils (%) (Auto) 68 % (31-73) Lymphocytes (%) (Auto) 16 % (24-48) Monocytes (%) (Auto) 11 % (0-9) Eosinophils (%) (Auto) 4 % (0-3) Basophils (%) (Auto) 1 % (0-3) Neutrophils # (Auto) 3.3 x10^3/uL (1.8-7.7) Lymphocytes # (Auto) 0.8 x10^3/uL (1.0-4.8) Monocytes # (Auto) 0.5 x10^3/uL (0.0-1.1) Eosinophils # (Auto) 0.2 x10^3/uL (0.0-0.7) Basophils # (Auto) 0.0 x10^3/uL (0.0-0.2) Sodium Level 145 mmol/L (136-145) Chloride Level 107 mmol/L (98-107) Carbon Dioxide Level 31 mmol/L (21-32) Anion Gap 7 (6-14) Blood Urea Nitrogen 51 mg/dL (8-26) Creatinine 1.8 mg/dL (0.7-1.3) Estimated GFR (Cockcroft-Gault) 37.2 Glucose Level 95 mg/dL (70-99) Calcium Level 7.7 mg/dL (8.5-10.1) Magnesium Level 1.7 mg/dL (1.8-2.4) Test 07/25/19 09:30 07/25/19 12:15 07/25/19 18:00 07/26/19 02:10 O2 Saturation 96 % (92-99) Arterial Blood pH 7.42 (7.35-7.45) Arterial Blood pCO2 at Patient Temp 45 mmHg (35-46) Arterial Blood pO2 at Patient Temp 91 mmHg (65-108) Arterial Blood HCO3 29 mmol/L (21-28) Arterial Blood Base Excess 3 mmol/L (-3-3) FiO2 40% ps 10 peep 5 Potassium Level 3.4 mmol/L (3.5-5.1) 3.7 mmol/L (3.5-5.1) 3.2 mmol/L (3.5-5.1) Magnesium Level 2.2 mg/dL (1.8-2.4) 1.8 mg/dL (1.8-2.4) White Blood Count 5.9 x10^3/uL (4.0-11.0) Red Blood Count 4.24 x10^6/uL (4.30-5.70) Hemoglobin 12.5 g/dL (13.0-17.5) Hematocrit 37.2 % (39.0-53.0) Mean Corpuscular Volume 88 fL (79-100) Mean Corpuscular Hemoglobin 30 pg (25-35) Mean Corpuscular Hemoglobin Concent 34 g/dL (31-37) Red Cell Distribution Width 16.3 % (11.5-14.5) Platelet Count 186 x10^3/uL (140-400) Neutrophils (%) (Auto) 78 % (31-73) Lymphocytes (%) (Auto) 10 % (24-48) Monocytes (%) (Auto) 9 % (0-9) Eosinophils (%) (Auto) 2 % (0-3) Basophils (%) (Auto) 1 % (0-3) Neutrophils # (Auto) 4.6 x10^3/uL (1.8-7.7) Lymphocytes # (Auto) 0.6 x10^3/uL (1.0-4.8) Monocytes # (Auto) 0.5 x10^3/uL (0.0-1.1) Eosinophils # (Auto) 0.1 x10^3/uL (0.0-0.7) Basophils # (Auto) 0.0 x10^3/uL (0.0-0.2) Sodium Level 143 mmol/L (136-145) Chloride Level 104 mmol/L (98-107) Carbon Dioxide Level 36 mmol/L (21-32) Anion Gap 3 (6-14) Blood Urea Nitrogen 37 mg/dL (8-26) Creatinine 1.6 mg/dL (0.7-1.3) Estimated GFR (Cockcroft-Gault) 42.6 Glucose Level 130 mg/dL (70-99) Calcium Level 8.1 mg/dL (8.5-10.1) Phosphorus Level 2.9 mg/dL (2.6-4.7) Laboratory Tests Test 07/25/19 12:15 07/25/19 18:00 07/26/19 02:10 Potassium Level 3.4 mmol/L (3.5-5.1) 3.7 mmol/L (3.5-5.1) 3.2 mmol/L (3.5-5.1) Magnesium Level 2.2 mg/dL (1.8-2.4) 1.8 mg/dL (1.8-2.4) White Blood Count 5.9 x10^3/uL (4.0-11.0) Red Blood Count 4.24 x10^6/uL (4.30-5.70) Hemoglobin 12.5 g/dL (13.0-17.5) Hematocrit 37.2 % (39.0-53.0) Mean Corpuscular Volume 88 fL (79-100) Mean Corpuscular Hemoglobin 30 pg (25-35) Mean Corpuscular Hemoglobin Concent 34 g/dL (31-37) Red Cell Distribution Width 16.3 % (11.5-14.5) Platelet Count 186 x10^3/uL (140-400) Neutrophils (%) (Auto) 78 % (31-73) Lymphocytes (%) (Auto) 10 % (24-48) Monocytes (%) (Auto) 9 % (0-9) Eosinophils (%) (Auto) 2 % (0-3) Basophils (%) (Auto) 1 % (0-3) Neutrophils # (Auto) 4.6 x10^3/uL (1.8-7.7) Lymphocytes # (Auto) 0.6 x10^3/uL (1.0-4.8) Monocytes # (Auto) 0.5 x10^3/uL (0.0-1.1) Eosinophils # (Auto) 0.1 x10^3/uL (0.0-0.7) Basophils # (Auto) 0.0 x10^3/uL (0.0-0.2) Sodium Level 143 mmol/L (136-145) Chloride Level 104 mmol/L (98-107) Carbon Dioxide Level 36 mmol/L (21-32) Anion Gap 3 (6-14) Blood Urea Nitrogen 37 mg/dL (8-26) Creatinine 1.6 mg/dL (0.7-1.3) Estimated GFR (Cockcroft-Gault) 42.6 Glucose Level 130 mg/dL (70-99) Calcium Level 8.1 mg/dL (8.5-10.1) Phosphorus Level 2.9 mg/dL (2.6-4.7) Medications Active Scripts Medications Dose Route/Sig Max Daily Dose Days Date Category Toprol XL (Metoprolol Succinate) 50 Mg Tab.er.24h 50 Mg PO DAILY 06/20/19 Rx Metolazone 2.5 Mg Tablet 2.5 Mg PO QODAY 06/20/19 Rx Furosemide 40 Mg Tablet 40 Mg PO BID92 06/20/19 Rx Klor-Con M20 (Potassium Chloride) 20 Meq Tab.er.prt 20 Meq PO BIDWMEALS 06/20/19 Rx Amiodarone Hcl 200 Mg Tablet 200 Mg PO DAILY 06/20/19 Rx Eliquis (Apixaban) 5 Mg Tablet 5 Mg PO BID 06/20/19 Rx Acetaminophen 325 Mg Tablet 325 Mg PO Q6HRS 06/13/19 Reported Dicyclomine Hcl 10 Mg Capsule 1 Cap PO PRN TID PRN 05/17/19 Reported Nexium Capsule (Esomeprazole Magnesium) 40 Mg Capsule.dr 40 Mg PO DAILYAC 05/17/19 Reported Oxycodone Hcl Immed.release (Oxycodone Hcl) 15 Mg Tablet 15 Mg PO PRN Q12HR PRN 05/17/19 Reported Alprazolam 1 Mg Tablet 1 Tab PO BID 02/05/17 Reported Comments EF from 07/20/2019 <Conclusion> Left ventricle systolic function is mildly impaired. The Ejection Fraction is 40-45%. Septal motion consistent with conduction abnormality. Mild global hypokinesis. Technically difficult study. Limited study for EF only. cxr 07/25 basilar atelectasis Impression . IMPRESSION: 1. Acute hypoxemic hypercapnic respiratory failure. extubated 07/24 2. Bilateral pulmonary infiltrates, suspect combination of congestive heart failure and pneumonia. 3. Sepsis. 4. SARS-CoV 2, negative 5. Cardiomyopathy, ejection fraction of 15%., now 40% 6. Chronic atrial fibrillation. 7. DONTAE/Chronic kidney disease. 8. Acute on chronic systolic heart failure. 9. Hypotension, RESOLVED 10. Mild elevation in troponin. 11. Paroxysmal atrial fibrillation with recent cardioversion. 12. Status post CODE BLUE secondary to V. tach/coronary artery disease see below CArdiac CAth 07/18/2019 Conclusion 1. Normal biventricular filling pressures. 2. Mild pulmonary HTN 3. Normal cardiac output at 5.1 L/min 4. One vessel coronary disease. 5. Successful PCI of the RCA as described above 6. Patient had one episode of SVT with hypotension requiring synchronized cardioversion to SR. Plan . 1. extubated 07/24. on canula 2. bronchodilators/ CXR reviewed 3. Follow cardiology recs and lasix 4. cont. ABX 5. Follow nephrology recs 6. D/W RN and RT 7. Optimize BP 8. PT consult 9. speech f/u 10. hemoptysis better, off burlinta and eliquis CODE: FULL CHRISTY WEBER MD July 26, 2019 09:44
[2019-07-26] MEDS ORDERED: MAGNESIUM SULFATE 2GM 50 ML IV ONE (09:45)
[2019-07-26] MEDS ORDERED: POTASSIUM CHLORIDE 20MEQ 100 ML IV ONE ×2 (10:00→12:00)
--- NOTE | 2019-07-26 10:15 | PDOC ---
PROGRESS NOTES Subjective Subjective extubated . feels better. lab reviewed.discussed with nurse. Objective Objective Vital Signs Date Time Temp Pulse Resp B/P (MAP) Pulse Ox O2 Delivery O2 Flow Rate FiO2 07/26/19 09:17 80 145/79 07/26/19 06:17 24 100 Nasal Cannula 2.0 07/26/19 00:10 98.1 98.1 Intake and Output 07/26/19 07:00 Intake Total 3262 ml Output Total 6655 ml Balance -3393 ml Intake Oral 0 ml IV Total 620 ml Tube Feeding 1562 ml Other 1080 ml Output Urine Total 6655 ml Physical Exam Abdomen: Soft Heart: Regular rate, Normal S1, Normal S2 Extremities: Other (trace edema legs) General: Alert HEENT: Atraumatic Lungs: Clear to auscultation Neuro: Normal speech Psych/Mental Status: Mental status NL Skin: No rashes Assessment Assessment Problems. Acute pulmonary edema. compensated 2. Acute on chronic systolic congestive heart failure.compensated 3. Severe cardiomyopathy with left ventricular ejection fraction 40-45% 07/19 per echo 4. Acute hypoxic and hypercarbic respiratory failure, on the ventilator. 5. Paroxysmal atrial fibrillation, currently in NSR 6. sepsis with shock, shock resolved 7. chronic kidney disease stage 3. bun higher due to intravascular volume depletion. off lasix 8. Gastroesophageal reflux disease. 9. Leukocytosis resolved bilateral lung infiltrates. suspect pneumonia hypernatremia mild hypokalemia hypomagnesemia treated VT cardiac arrest 07/17 and again 07/19 PCI RCA 07/17 hypertension Medical Problems: (1) Acute exacerbation of CHF (congestive heart failure) Status: Acute (2) Acute on chronic renal insufficiency Status: Acute (3) Elevated troponin I level Status: Acute (4) Septic shock Status: Acute (5) Suspected COVID-19 virus infection Status: Acute Plan Plan of Care ST to eval swallow eliquis and aspirin and brillinta on hld due to hemoptysis which is better PT and OT continue iv lasix lab tomorrow finished iv zosyn increase amlodipine as bp is high iv kcl and iv magnesium today Comment Review of Relevant I have reviewed the following items juan (where applicable) has been applied. Labs Laboratory Tests Test 07/24/19 14:08 07/24/19 18:17 07/25/19 00:01 07/25/19 05:30 Potassium Level 3.7 mmol/L (3.5-5.1) 3.3 mmol/L (3.5-5.1) 3.2 mmol/L (3.5-5.1) 3.6 mmol/L (3.5-5.1) White Blood Count 4.8 x10^3/uL (4.0-11.0) Red Blood Count 3.64 x10^6/uL (4.30-5.70) Hemoglobin 11.0 g/dL (13.0-17.5) Hematocrit 32.1 % (39.0-53.0) Mean Corpuscular Volume 88 fL (79-100) Mean Corpuscular Hemoglobin 30 pg (25-35) Mean Corpuscular Hemoglobin Concent 34 g/dL (31-37) Red Cell Distribution Width 16.3 % (11.5-14.5) Platelet Count 134 x10^3/uL (140-400) Neutrophils (%) (Auto) 68 % (31-73) Lymphocytes (%) (Auto) 16 % (24-48) Monocytes (%) (Auto) 11 % (0-9) Eosinophils (%) (Auto) 4 % (0-3) Basophils (%) (Auto) 1 % (0-3) Neutrophils # (Auto) 3.3 x10^3/uL (1.8-7.7) Lymphocytes # (Auto) 0.8 x10^3/uL (1.0-4.8) Monocytes # (Auto) 0.5 x10^3/uL (0.0-1.1) Eosinophils # (Auto) 0.2 x10^3/uL (0.0-0.7) Basophils # (Auto) 0.0 x10^3/uL (0.0-0.2) Sodium Level 145 mmol/L (136-145) Chloride Level 107 mmol/L (98-107) Carbon Dioxide Level 31 mmol/L (21-32) Anion Gap 7 (6-14) Blood Urea Nitrogen 51 mg/dL (8-26) Creatinine 1.8 mg/dL (0.7-1.3) Estimated GFR (Cockcroft-Gault) 37.2 Glucose Level 95 mg/dL (70-99) Calcium Level 7.7 mg/dL (8.5-10.1) Magnesium Level 1.7 mg/dL (1.8-2.4) Test 07/25/19 09:30 07/25/19 12:15 07/25/19 18:00 07/26/19 02:10 O2 Saturation 96 % (92-99) Arterial Blood pH 7.42 (7.35-7.45) Arterial Blood pCO2 at Patient Temp 45 mmHg (35-46) Arterial Blood pO2 at Patient Temp 91 mmHg (65-108) Arterial Blood HCO3 29 mmol/L (21-28) Arterial Blood Base Excess 3 mmol/L (-3-3) FiO2 40% ps 10 peep 5 Potassium Level 3.4 mmol/L (3.5-5.1) 3.7 mmol/L (3.5-5.1) 3.2 mmol/L (3.5-5.1) Magnesium Level 2.2 mg/dL (1.8-2.4) 1.8 mg/dL (1.8-2.4) White Blood Count 5.9 x10^3/uL (4.0-11.0) Red Blood Count 4.24 x10^6/uL (4.30-5.70) Hemoglobin 12.5 g/dL (13.0-17.5) Hematocrit 37.2 % (39.0-53.0) Mean Corpuscular Volume 88 fL (79-100) Mean Corpuscular Hemoglobin 30 pg (25-35) Mean Corpuscular Hemoglobin Concent 34 g/dL (31-37) Red Cell Distribution Width 16.3 % (11.5-14.5) Platelet Count 186 x10^3/uL (140-400) Neutrophils (%) (Auto) 78 % (31-73) Lymphocytes (%) (Auto) 10 % (24-48) Monocytes (%) (Auto) 9 % (0-9) Eosinophils (%) (Auto) 2 % (0-3) Basophils (%) (Auto) 1 % (0-3) Neutrophils # (Auto) 4.6 x10^3/uL (1.8-7.7) Lymphocytes # (Auto) 0.6 x10^3/uL (1.0-4.8) Monocytes # (Auto) 0.5 x10^3/uL (0.0-1.1) Eosinophils # (Auto) 0.1 x10^3/uL (0.0-0.7) Basophils # (Auto) 0.0 x10^3/uL (0.0-0.2) Sodium Level 143 mmol/L (136-145) Chloride Level 104 mmol/L (98-107) Carbon Dioxide Level 36 mmol/L (21-32) Anion Gap 3 (6-14) Blood Urea Nitrogen 37 mg/dL (8-26) Creatinine 1.6 mg/dL (0.7-1.3) Estimated GFR (Cockcroft-Gault) 42.6 Glucose Level 130 mg/dL (70-99) Calcium Level 8.1 mg/dL (8.5-10.1) Phosphorus Level 2.9 mg/dL (2.6-4.7) Laboratory Tests Test 07/25/19 12:15 07/25/19 18:00 07/26/19 02:10 Potassium Level 3.4 mmol/L (3.5-5.1) 3.7 mmol/L (3.5-5.1) 3.2 mmol/L (3.5-5.1) Magnesium Level 2.2 mg/dL (1.8-2.4) 1.8 mg/dL (1.8-2.4) White Blood Count 5.9 x10^3/uL (4.0-11.0) Red Blood Count 4.24 x10^6/uL (4.30-5.70) Hemoglobin 12.5 g/dL (13.0-17.5) Hematocrit 37.2 % (39.0-53.0) Mean Corpuscular Volume 88 fL (79-100) Mean Corpuscular Hemoglobin 30 pg (25-35) Mean Corpuscular Hemoglobin Concent 34 g/dL (31-37) Red Cell Distribution Width 16.3 % (11.5-14.5) Platelet Count 186 x10^3/uL (140-400) Neutrophils (%) (Auto) 78 % (31-73) Lymphocytes (%) (Auto) 10 % (24-48) Monocytes (%) (Auto) 9 % (0-9) Eosinophils (%) (Auto) 2 % (0-3) Basophils (%) (Auto) 1 % (0-3) Neutrophils # (Auto) 4.6 x10^3/uL (1.8-7.7) Lymphocytes # (Auto) 0.6 x10^3/uL (1.0-4.8) Monocytes # (Auto) 0.5 x10^3/uL (0.0-1.1) Eosinophils # (Auto) 0.1 x10^3/uL (0.0-0.7) Basophils # (Auto) 0.0 x10^3/uL (0.0-0.2) Sodium Level 143 mmol/L (136-145) Chloride Level 104 mmol/L (98-107) Carbon Dioxide Level 36 mmol/L (21-32) Anion Gap 3 (6-14) Blood Urea Nitrogen 37 mg/dL (8-26) Creatinine 1.6 mg/dL (0.7-1.3) Estimated GFR (Cockcroft-Gault) 42.6 Glucose Level 130 mg/dL (70-99) Calcium Level 8.1 mg/dL (8.5-10.1) Phosphorus Level 2.9 mg/dL (2.6-4.7) Microbiology 07/17/19 Urine Culture - Final, Complete 07/17/19 Urine Culture Result 1 (BOYD) - Final, Complete 07/17/19 Blood Culture - Final, Complete NO GROWTH AFTER 5 DAYS 07/17/19 Nose/Throat Culture - Final, Complete 07/17/19 - Final, Complete Medications Current Medications Nitroglycerin (Nitrostat) 0.4 mg STK-MED ONCE SL ; Start 07/17/19 at 04:28; Stop 07/17/19 at 04:28; Status DC Nitroglycerin (Nitrostat) 0.4 mg 1X ONCE SL Last administered on 07/17/19at 04:29; Start 07/17/19 at 04:30; Stop 07/17/19 at 04:43; Status DC Nitroglycerin/ Dextrose 250 ml @ 0 mls/hr 1X ONCE IV Last administered on 07/17/19at 04:47; Start 07/17/19 at 04:45; Stop 07/17/19 at 04:46; Status DC Rocuronium [place] (Zemuron) 50 mg 1X ONCE IV Last administered on 07/17/19at 04:44; Start 07/17/19 at 04:45; Stop 07/17/19 at 04:46; Status DC Etomidate (Amidate) 20 mg 1X ONCE IV Last administered on 07/17/19at 04:43; Start 07/17/19 at 04:45; Stop 07/17/19 at 04:46; Status DC Propofol 100 ml @ 0 mls/hr CONT PRN IV SEE PROTOCOL Last administered on at 18:33; Start 07/17/19 at 05:15; Stop 07/25/19 at 18:27; Status DC Aspirin (Aspirin Rectal Supp) 300 mg 1X ONCE NC Last administered on 07/17/19at 06:01; Start 07/17/19 at 05:45; Stop 07/17/19 at 05:46; Status DC Bumetanide (Bumex) 1 mg 1X ONCE IV Last administered on 07/17/19at 06:00; Start 07/17/19 at 06:00; Stop 07/17/19 at 06:01; Status DC Piperacillin Sod/ Tazobactam Sod 4.5 gm/Sodium Chloride 100 ml @ 200 mls/hr 1X ONCE IV Last administered on 07/17/19at 11:14; Start 07/17/19 at 06:00; Stop 07/17/19 at 06:29; Status DC Vancomycin HCl (Vanco Per Pharmacy) 1 each PRN DAILY PRN MC SEE COMMENTS Last administered on 07/17/19at 06:43; Start 07/17/19 at 06:00; Stop 07/17/19 at 10:41; Status DC Vancomycin HCl 2 gm/Sodium Chloride 500 ml @ 250 mls/hr 1X ONCE IV Last administered on 07/17/19at 06:15; Start 07/17/19 at 06:00; Stop 07/17/19 at 07:59; Status DC Ondansetron HCl (Zofran) 4 mg PRN Q8HRS PRN IV NAUSEA/VOMITING; Start 07/17/19 at 06:00; Stop 07/18/19 at 05:59; Status DC Norepinephrine Bitartrate 8 mg/ Dextrose 258 ml @ 0 mls/hr CONT PRN IV SEE I/O RECORD Last administered on 07/17/19at 21:52; Start 07/17/19 at 06:30; Stop 07/18/19 at 13:40; Status DC Vancomycin HCl 1.75 gm/Sodium Chloride 500 ml @ 250 mls/hr Q24H IV ; Start 07/18/19 at 06:30; Stop 07/17/19 at 10:38; Status DC Vancomycin HCl (Vancomycin Trough Level) 1 each 1X ONCE MC ; Start 07/19/19 at 06:00; Stop 07/19/19 at 06:01; Status Cancel Morphine Sulfate (Morphine Sulfate) 6 mg 1X ONCE IV Last administered on 07/17/19at 07:08; Start 07/17/19 at 07:15; Stop 07/17/19 at 07:16; Status DC Midazolam HCl 100 ml @ 0 mls/hr CONT PRN IV SEE PROTOCOL Last administered on 07/22/19at 23:41; Start 07/17/19 at 07:15; Stop 07/25/19 at 18:27; Status DC Morphine Sulfate (Morphine Sulfate) 4 mg PRN Q1HR PRN IV SEE COMMENTS.; Start 07/17/19 at 08:00; Stop 07/17/19 at 10:38; Status DC Heparin Sodium (Porcine) (Heparin Sodium) 5,000 unit Q12HR SQ ; Start 07/17/19 at 21:00; Stop 07/17/19 at 10:38; Status DC Amiodarone HCl (Cordarone) 200 mg DAILY PO Last administered on 07/21/19at 09:04; Start 07/18/19 at 09:00; Stop 07/21/19 at 15:07; Status DC Metolazone (Zaroxolyn) 2.5 mg QODAY PO ; Start 07/19/19 at 09:00; Stop 07/18/19 at 10:36; Status DC Potassium Chloride (Klor-Con) 20 meq BIDWMEALS PO Last administered on 07/17/19at 16:34; Start 07/17/19 at 17:00; Stop 07/18/19 at 10:36; Status DC Furosemide (Lasix) 40 mg [id number] IVP Last administered on 07/18/19at 08:03; Start 07/17/19 at 14:00; Stop 07/20/19 at 11:02; Status DC Morphine Sulfate (Morphine Sulfate) 2 mg PRN Q4HRS PRN IV SEE COMMENTS.; Start 07/17/19 at 10:30; Status Cancel Apixaban (Eliquis) 5 mg BID FT Last administered on 07/23/19 08:17; Start 07/17/19 at 21:00; Stop 07/23/19 at 10:05; Status DC Insulin Human Lispro (HumaLOG) 0-6 UNITS Q6HRS SQ ; Start 07/17/19 at 12:00; Stop 07/23/19 at 10:06; Status DC Lansoprazole (Prevacid) 30 mg DAILY FT Last administered on 07/26/19at 09:17; Start 07/18/19 at 09:00 Acetaminophen (Tylenol) 650 mg PRN Q6HRS PRN FT MILD PAIN / TEMP > 100.3'F; Start 07/17/19 at 10:30 Alprazolam (Xanax) 1 mg BID FT Last administered on 07/26/19at 09:17; Start 07/17/19 at 21:00 Magnesium Hydroxide (Milk Of Magnesia) 2,400 mg PRN DAILY PRN FT CONSTIPATION; Start 07/17/19 at 10:30 Dexmedetomidine HCl 400 mcg/ Sodium Chloride 100 ml @ 0 mls/hr CONT PRN IV PER PROTOCOL Last administered on 07/20/19at 13:31; Start 07/17/19 at 11:00; Stop 07/25/19 at 18:27; Status DC Sodium Chloride 500 ml @ 500 mls/hr 1X PRN PRN IV SEE COMMENTS; Start 07/17/19 at 11:00; Stop 07/22/19 at 12:54; Status DC Atropine Sulfate (ATROPINE 0.5mg SYRINGE) 0.5 mg PRN Q5MIN PRN IV SEE COMMENTS; Start 07/17/19 at 11:00; Stop 07/25/19 at 18:27; Status DC Morphine Sulfate (Morphine Sulfate) 2 mg PRN Q1HR PRN IV SEE COMMENTS. Last administered on 07/17/19at 13:37; Start 07/17/19 at 11:15 Morphine Sulfate (Morphine Sulfate) 4 mg PRN Q1HR PRN IV SEE COMMENTS. Last adm inistered on 07/18/19at 13:53; Start 07/17/19 at 11:15 Piperacillin Sod/ Tazobactam Sod 2.25 gm/Sodium Chloride 50 ml @ 100 mls/hr Q6HRS IV Last administered on 07/22/19at 05:46; Start 07/17/19 at 18:00; Stop 07/22/19 at 08:47; Status DC Magnesium Sulfate 50 ml @ 25 mls/hr 1X ONCE IV Last administered on 07/18/19at 08:04; Start 07/18/19 at 07:15; Stop 07/18/19 at 09:14; Status DC Milrinone Lactate/ Dextrose 100 ml @ 0 mls/hr CONT PRN IV SEE I/O RECORD Last administered on 07/20/19at 02:37; Start 07/18/19 at 07:15; Stop 07/23/19 at 10:03; Status DC Linezolid/Dextrose 300 ml @ 300 mls/hr Q12HR IV Last administered on 07/19/19at 21:29; Start 07/18/19 at 09:00; Stop 07/20/19 at 08:25; Status DC Info (Anti-Coagulation Monitoring By Pharmacy) 1 each PRN DAILY PRN MC SEE COMMENTS Last administered on 07/20/19at 14:42; Start 07/18/19 at 08:00 Vecuronium [place] (Norcuron Bolus) 10 mg STK-MED ONCE IV ; Start 07/18/19 at 09:12; Stop 07/18/19 at 09:12; Status DC Potassium Chloride/Water 100 ml @ 100 mls/hr 1X ONCE IV Last administered on 07/18/19at 10:04; Start 07/18/19 at 09:45; Stop 07/18/19 at 10:44; Status DC Magnesium Sulfate 50 ml @ 25 mls/hr 1X ONCE IV Last administered on 07/18/19at 10:03; Start 07/18/19 at 09:45; Stop 07/18/19 at 11:44; Status DC Norepinephrine Bitartrate 32 mg/ Dextrose 282 ml @ 0 mls/hr CONT PRN IV SEE I/O RECORD Last administered on 07/19/19at 10:39; Start 07/18/19 at 11:15; Stop 07/23/19 at 10:05; Status DC Morphine Sulfate 30 ml @ 0 mls/hr CONT PRN PRN IV PER PROTOCOL Last admi nistered on 07/25/19at 02:46; Start 07/18/19 at 12:45; Stop 07/25/19 at 18:27; Status DC Lidocaine HCl (Xylocaine-Mpf 1% 2ml Vial) 2 ml STK-MED ONCE .ROUTE ; Start 07/18/19 at 13:05; Stop 07/18/19 at 13:05; Status DC Iodixanol (Visipaque 320) 100 ml STK-MED ONCE .ROUTE ; Start 07/18/19 at 13:05; Stop 07/18/19 at 13:06; Status DC Heparin Sodium/ Sodium Chloride 1,500 ml @ As Directed STK-MED ONCE .ROUTE ; Start 07/18/19 at 13:05; Stop 07/18/19 at 13:06; Status DC Vecuronium [place] (Norcuron Bolus) 10 mg STK-MED ONCE IV ; Start 07/18/19 at 13:49; Stop 07/18/19 at 13:49; Status DC Vecuronium [place] (Norcuron Bolus) 6 mg PRN Q4HRS PRN IV ANXIETY / AGITATION; Start 07/18/19 at 14:00; Stop 07/25/19 at 18:27; Status DC Epinephrine HCl 5 mg/Sodium Chloride 255 ml @ 32.926 mls/ hr CONT PRN IV SEE I/O RECORD; Start 07/18/19 at 14:00; Stop 07/24/19 at 11:06; Status DC Lidocaine HCl (Lidocaine 1% 20ml Vial) 20 ml STK-MED ONCE .ROUTE ; Start 07/18/19 at 14:11; Stop 07/18/19 at 14:11; Status DC Heparin Sodium (Porcine) (Heparin Sodium) 10,000 unit STK-MED ONCE .ROUTE ; Start 07/18/19 at 14:27; Stop 07/18/19 at 14:28; Status DC Heparin Sodium/ Sodium Chloride (HEPARIN for ARTERIAL LINE FLUSH) 1,000 unit 1X ONCE IART Last administered on 07/18/19at 14:45; Start 07/18/19 at 14:45; Stop 07/18/19 at 14:52; Status DC Heparin Sodium/ Sodium Chloride (HEPARIN for ARTERIAL LINE FLUSH) 1,000 unit 1X ONCE IART Last administered on 07/18/19at 14:45; Start 07/18/19 at 14:45; Stop 07/18/19 at 14:52; Status DC Iodixanol (Visipaque 320) 100 ml 1X ONCE IART Last administered on 07/18/19at 14:45; Start 07/18/19 at 14:45; Stop 07/18/19 at 14:52; Status DC Heparin Sodium (Porcine) (Heparin Sodium) 7,000 unit 1X ONCE IV Last administered on 07/18/19at 14:45; Start 07/18/19 at 14:45; Stop 07/18/19 at 14:52; Status DC Lidocaine HCl (Lidocaine 1% 20ml Vial) 20 ml 1X ONCE INJ Last administered on 07/18/19at 14:45; Start 07/18/19 at 14:45; Stop 07/18/19 at 14:52; Status DC Heparin Sodium/ Sodium Chloride 500 ml @ As Directed STK-MED ONCE .ROUTE ; Start 07/18/19 at 15:11; Stop 07/18/19 at 15:11; Status DC Ticagrelor (Brilinta) 180 mg 1X ONCE PO Last administered on 07/18/19at 16:08; Start 07/18/19 at 16:00; Stop 07/18/19 at 16:01; Status DC Digoxin (Lanoxin) 250 mcg 1X ONCE IV ; Start 07/19/19 at 06:15; Stop 07/19/19 at 06:16; Status Cancel Digoxin (Lanoxin) 250 mcg 1X ONCE IV Last administered on 07/19/19at 05:15; Start 07/19/19 at 05:15; Stop 07/19/19 at 06:11; Status DC Digoxin (Lanoxin) 250 mcg 1X ONCE IV Last administered on 07/19/19at 08:48; Start 07/19/19 at 09:00; Stop 07/19/19 at 09:01; Status DC Digoxin (Lanoxin) 250 mcg 1X ONCE IV Last administered on 07/19/19at 04:15; Start 07/19/19 at 04:10; Stop 07/19/19 at 06:15; Status DC Vecuronium [place] (Norcuron Bolus) 20 mg STK-MED ONCE IV ; Start 07/18/19 at 12:00; Stop 07/19/19 at 08:48; Status DC Potassium Chloride/Water 100 ml @ 100 mls/hr 1X ONCE IV Last administered on 07/19/19at 12:13; Start 07/19/19 at 11:45; Stop 07/19/19 at 12:44; Status DC Amiodarone HCl 150 mg/Dextrose 103 ml @ 618 mls/hr 1X ONCE IV Last administered on 07/19/19at 12:15; Start 07/19/19 at 12:00; Stop 07/19/19 at 12:09; Status DC Metoprolol Tartrate (Lopressor) 12.5 mg Q6HRS PO Last administered on 07/23/19at 05:54; Start 07/19/19 at 12:00; Stop 07/23/19 at 10:05; Status DC Amiodarone HCl (Cordarone) 300 mg STK-MED ONCE .ROUTE ; Start 07/18/19 at 16:08; Stop 07/19/19 at 16:08; Status DC Epinephrine HCl (EPINEPHrine SYRINGE) 4 mg STK-MED ONCE .ROUTE ; Start 07/18/19 at 16:08; Stop 07/19/19 at 16:08; Status DC Aspirin (Aspirin Chewable) 81 mg 1X ONCE PO Last administered on 07/19/19at 17:28; Start 07/19/19 at 17:00; Stop 07/19/19 at 17:06; Status DC Aspirin (Aspirin Chewable) 81 mg [id number] PO Last administered on 07/26/19at 09:17; Start 07/20/19 at 08:00 Ticagrelor (Brilinta) 90 mg BID PO Last administered on 07/25/19at 08:23; Start 07/20/19 at 09:00; Stop 07/25/19 at 14:13; Status DC Ticagrelor (Brilinta) 90 mg 1X ONCE PO Last administered on 07/19/19at 17:28; Start 07/19/19 at 17:00; Stop 07/19/19 at 17:07; Status DC Info (Tpn Per Pharmacy) 1 each PRN DAILY PRN MC SEE COMMENTS Last administered on 07/21/19at 11:58; Start 07/19/19 at 17:00; Stop 07/21/19 at 19:42; Status DC Magnesium Sulfate/ Dextrose 100 ml @ 100 mls/hr 1X ONCE IV Last administered on 07/20/19at 09:40; Start 07/20/19 at 09:45; Stop 07/20/19 at 10:44; Status DC Magnesium Sulfate/ Dextrose 100 ml @ 100 mls/hr 1X ONCE IV Last administered on 07/20/19at 11:43; Start 07/20/19 at 09:45; Stop 07/20/19 at 10:44; Status DC Potassium Chloride/Water 100 ml @ 100 mls/hr Q1H IV Last administered on 07/20/19at 15:45; Start 07/20/19 at 09:45; Stop 07/20/19 at 13:44; Status DC Amiodarone HCl 450 mg/Dextrose 259 ml @ 0 mls/hr CONT PRN IV SEE I/O RECORD; Start 07/20/19 at 10:00; Status Cancel Lidocaine HCl (Lidocaine HCl 2% Abboject) 80 mg 1X ONCE IV Last administered on 07/20/19at 10:11; Start 07/20/19 at 10:00; Stop 07/20/19 at 10:03; Status DC Lidocaine HCl/ Dextrose 500 ml @ 0 mls/hr CONT PRN IV SEE I/O RECORD Last administered on 07/20/19at 10:15; Start 07/20/19 at 10:00; Stop 07/21/19 at 15:07; Status DC Furosemide (Lasix) 40 mg DAILY IVP Last administered on 07/22/19at 09:03; Start 07/21/19 at 09:00; Stop 07/22/19 at 12:54; Status DC Sodium Chloride 90 meq/Potassium Chloride 50 meq/ Potassium Phosphate 13.6 mmol/Magnesium Sulfate 10 meq/ Calcium Gluconate 10 meq/ Multivitamins 10 ml/Ch romium/ Copper/Manganese/ Seleni/Zn 1 ml/ Total Parenteral Nutrition/Amino Acids/Dextrose/ Fat Emulsion Intravenous 1,512 ml @ 63 mls/hr TPN CONT IV Last administered on 07/20/19at 22:01; Start 07/20/19 at 22:00; Stop 07/21/19 at 21:59; Status DC Sodium Chloride 90 meq/Potassium Chloride 50 meq/ Potassium Phosphate 13.6 mmol/Magnesium Sulfate 10 meq/ Calcium Gluconate 10 meq/ Multivitamins 10 ml/Chromium/ Copper/Manganese/ Seleni/Zn 1 ml/ Total Parenteral Nutrition/Amino Acids/Dextrose/ Fat Emulsion Intravenous 1,512 ml @ 63 mls/hr TPN CONT IV ; Start 07/21/19 at 22:00; Stop 07/22/19 at 09:05; Status DC Potassium Chloride (Klor-Con) 40 meq 1X ONCE PO Last administered on 07/21/19at 15:38; Start 07/21/19 at 14:30; Stop 07/21/19 at 14:33; Status DC Amiodarone HCl (Cordarone) 400 mg DAILY PO Last administered on 07/26/19at 09:17; Start 07/22/19 at 09:00 Amiodarone HCl (Cordarone) 200 mg 1X ONCE PO Last administered on 07/21/19at 15:38; Start 07/21/19 at 15:15; Stop 07/21/19 at 15:16; Status DC Info (Tpn Per Pharmacy) 1 each PRN DAILY PRN MC SEE COMMENTS; Start 07/22/19 at 08:45; Status Cancel Piperacillin Sod/ Tazobactam Sod 3.375 gm/Sodium Chloride 50 ml @ 100 mls/hr Q6HRS IV Last administered on 07/25/19at 05:33; Start 07/22/19 at 12:00; Stop 07/25/19 at 10:10; Status DC Potassium Chloride (Klor-Con) 40 meq 1X ONCE PO Last administered on 07/22/19at 12:03; Start 07/22/19 at 11:45; Stop 07/22/19 at 11:47; Status DC Desmopressin Acetate (Ddavp) 4 mcg BID SQ Last administered on 07/23/19at 10:20; Start 07/22/19 at 14:00; Stop 07/23/19 at 09:01; Status DC Metoprolol Tartrate (Lopressor) 12.5 mg Q12HR PO Last administered on 07/26/19at 09:17; Start 07/23/19 at 21:00 Potassium Bicarbonate (Potassium Effervescent Tablet) 40 meq 1X ONCE PO Last administered on 07/23/19at 12:49; Start 07/23/19 at 10:15; Stop 07/23/19 at 10:16; Status DC Magnesium Sulfate 50 ml @ 25 mls/hr PRN DAILY PRN IV for Mag < 1.7 on am labs; Start 07/23/19 at 13:15 Potassium Chloride/Water 100 ml @ 50 mls/hr PRN Q6HRS PRN IV For K < 3.7 Last administered on 07/25/19at 06:28; Start 07/23/19 at 13:15 Potassium Chloride/Water 100 ml @ 50 mls/hr PRN Q2HR PRN IV total of 40mEq for K < 3.5 Last administered on 07/26/19at 06:15; Start 07/23/19 at 13:15 Amino Acids/ Glycerin/ Electrolytes 1,000 ml @ 50 mls/hr Q20H IV ; Start 07/23/19 at 13:15; Stop 07/23/19 at 17:04; Status DC Furosemide (Lasix) 40 mg [id number] IVP Last administered on 07/26/19at 09:18; Start 07/23/19 at 14:00 Dextrose 1,000 ml @ 75 mls/hr [id number] IV Last administered on 07/23/19at 17:09; Start 07/23/19 at 17:00; Stop 07/24/19 at 11:06; Status DC Nitroglycerin/ Dextrose 250 ml @ 1.5 mls/hr CONT PRN IV SEE I/O RECORD Last administered on 07/24/19at 08:05; Start 07/24/19 at 08:00 Potassium Chloride (Klor-Con) 40 meq 1X ONCE PO ; Start 07/24/19 at 11:00; Stop 07/24/19 at 11:04; Status DC Potassium Bicarbonate (Potassium Effervescent Tablet) 40 meq 1X ONCE PO Last administered on 07/24/19at 11:54; Start 07/24/19 at 12:00; Stop 07/24/19 at 12:01; Status DC Magnesium Sulfate 50 ml @ 25 mls/hr PRN DAILY PRN IV for Mag < 1.7 on am labs; Start 07/25/19 at 08:45; Stop 07/25/19 at 15:52; Status DC Magnesium Sulfate 50 ml @ 25 mls/hr 1X ONCE IV Last administered on 07/25/19at 10:05; Start 07/25/19 at 10:00; Stop 07/25/19 at 11:59; Status DC Piperacillin Sod/ Tazobactam Sod 3.375 gm/Sodium Chloride 50 ml @ 100 mls/hr Q8HRS IV Last administered on 07/26/19at 05:33; Start 07/25/19 at 14:00 Amlodipine Besylate (Norvasc) 2.5 mg DAILY FT Last administered on 07/26/19at 09:16; Start 07/25/19 at 11:00 Potassium Chloride/Water 100 ml @ 100 mls/hr Q1H IV Last administered on 07/25/19at 16:01; Start 07/25/19 at 15:00; Stop 07/25/19 at 16:59; Status DC Potassium Chloride/Water 100 ml @ 50 mls/hr 1X ONCE IV Last administered on 07/26/19at 09:53; Start 07/26/19 at 10:00; Stop 07/26/19 at 11:59 Potassium Chloride/Water 100 ml @ 50 mls/hr 1X ONCE IV ; Start 07/26/19 at 12:00; Stop 07/26/19 at 13:59 Magnesium Sulfate 50 ml @ 25 mls/hr 1X ONCE IV ; Start 07/26/19 at 09:45; Stop 07/26/19 at 11:44; Status UNV Active Scripts Active Toprol XL (Metoprolol Succinate) 50 Mg Tab.er.24h 50 Mg PO DAILY Metolazone 2.5 Mg Tablet 2.5 Mg PO QODAY Furosemide 40 Mg Tablet 40 Mg PO [id number] Klor-Con M20 (Potassium Chloride) 20 Meq Tab.er.prt 20 Meq PO BIDWMEALS Amiodarone Hcl 200 Mg Tablet 200 Mg PO DAILY Eliquis (Apixaban) 5 Mg Tablet 5 Mg PO BID Reported Acetaminophen 325 Mg Tablet 325 Mg PO Q6HRS Dicyclomine Hcl 10 Mg Capsule 1 Cap PO PRN TID PRN Nexium Capsule (Esomeprazole Magnesium) 40 Mg Capsule.dr 40 Mg PO DAILYAC Oxycodone Hcl Immed.release (Oxycodone Hcl) 15 Mg Tablet 15 Mg PO PRN Q12HR PRN Alprazolam 1 Mg Tablet 1 Tab PO BID Vitals/I & O Vital Sign - Last 24 Hours 07/25/19 07/25/19 07/25/19 07/25/19 11:00 11:26 12:00 13:00 Temp 99.0 99.0 Pulse 81 78 78 Resp 22 19 19 B/P (MAP) 162/65 (97) 160/69 (99) 170/69 (102) Pulse Ox 100 100 100 O2 Delivery Nasal Cannula Nasal Cannula Nasal Cannula Nasal Cannula O2 Flow Rate 2.0 2.0 2.0 2.0 07/25/19 07/25/19 07/25/19 07/25/19 13:11 14:00 15:00 15:54 Temp 99.0 99.0 Pulse 78 76 75 Resp 18 18 B/P (MAP) 160/69 162/72 (102) 170/78 (108) Pulse Ox 100 100 O2 Delivery Nasal Cannula Nasal Cannula Nasal Cannula O2 Flow Rate 2.0 2.0 2.0 07/25/19 07/25/19 07/25/19 07/25/19 16:04 17:00 18:00 20:00 Pulse 69 75 70 Resp 18 22 23 B/P (MAP) 155/69 (97) 158/69 (98) 160/67 (98) () Pulse Ox 100 100 100 O2 Delivery Nasal Cannula Nasal Cannula Nasal Cannula O2 Flow Rate 2.0 2.0 2.0 07/25/19 07/25/19 07/25/19 07/25/19 20:00 20:25 22:09 22:46 Temp 97.6 97.6 Pulse 79 79 60 Resp B/P (MAP) 183/83 (116) 183/83 155/76 (102) Pulse Ox 100 100 O2 Delivery Nasal Cannula Nasal Cannula Nasal Cannula O2 Flow Rate 2.0 2.0 2.0 07/25/19 07/25/19 07/25/19 07/26/19 23:46 23:47 23:51 00:10 Temp 98.1 98.1 Pulse 67 72 Resp B/P (MAP) 151/77 (101) () 161/78 (105) Pulse Ox 100 100 O2 Delivery Nasal Cannula Nasal Cannula Nasal Cannula O2 Flow Rate 2.0 2.0 2.0 07/26/19 07/26/19 07/26/19 07/26/19 01:12 02:10 03:10 03:57 Pulse 69 83 71 Resp 24 B/P (MAP) 165/84 (111) 172/87 (115) 187/73 (111) Pulse Ox 100 99 99 O2 Delivery Nasal Cannula Nasal Cannula Nasal Cannula Nasal Cannula O2 Flow Rate 2.0 2.0 2.0 2.0 07/26/19 07/26/19 07/26/19 07/26/19 03:59 04:11 05:36 06:17 Pulse 70 70 73 80 Resp 24 24 24 B/P (MAP) 165/81 (109) 172/83 (112) 170/91 (117) Pulse Ox 100 100 100 O2 Delivery Nasal Cannula Nasal Cannula Nasal Cannula O2 Flow Rate 2.0 2.0 2.0 07/26/19 07/26/19 07/26/19 09:16 09:17 09:17 Pulse 80 80 80 B/P (MAP) 145/79 145/79 145/79 Intake and Output 07/25/19 07/25/19 07/26/19 15:00 23:00 07:00 Intake Total 1080 ml 716 ml 1466 ml Output Total 2590 ml 2415 ml 1650 ml Balance -1510 ml -1699 ml -184 ml RICK CAROLINA MD July 26, 2019 10:15
--- NOTE | 2019-07-26 10:43 | NUR ---
SS following up with discharge planning. SS reviewed pt chart and discussed with RN. Pt is currently on nasal canula oxygen. Pt extubated 07/25/2019. PT/OT ordered. SS awaiting PT/OT evaluations and recommendations and will proceed accordingly.
--- NOTE | 2019-07-26 11:25 | PDOC ---
Renal-Progress Notes Subjective Notes Notes NONE History of Present Illness Hx of present illness STABLE Vitals Vitals Vital Signs Date Time Temp Pulse Resp B/P (MAP) Pulse Ox O2 Delivery O2 Flow Rate FiO2 07/26/19 09:17 80 145/79 07/26/19 09:00 28 98 Nasal Cannula 2.0 07/26/19 07:00 98.2 98.2 Weight Weight [ ] I.O. Intake and Output Intake and Output 07/26/19 07:00 Intake Total 3262 ml Output Total 6655 ml Balance -3393 ml Intake Oral 0 ml IV Total 620 ml Tube Feeding 1562 ml Other 1080 ml Output Urine Total 6655 ml Labs Labs Laboratory Tests Test 07/25/19 12:15 07/25/19 18:00 07/26/19 02:10 Potassium Level 3.4 mmol/L (3.5-5.1) 3.7 mmol/L (3.5-5.1) 3.2 mmol/L (3.5-5.1) Magnesium Level 2.2 mg/dL (1.8-2.4) 1.8 mg/dL (1.8-2.4) White Blood Count 5.9 x10^3/uL (4.0-11.0) Red Blood Count 4.24 x10^6/uL (4.30-5.70) Hemoglobin 12.5 g/dL (13.0-17.5) Hematocrit 37.2 % (39.0-53.0) Mean Corpuscular Volume 88 fL (79-100) Mean Corpuscular Hemoglobin 30 pg (25-35) Mean Corpuscular Hemoglobin Concent 34 g/dL (31-37) Red Cell Distribution Width 16.3 % (11.5-14.5) Platelet Count 186 x10^3/uL (140-400) Neutrophils (%) (Auto) 78 % (31-73) Lymphocytes (%) (Auto) 10 % (24-48) Monocytes (%) (Auto) 9 % (0-9) Eosinophils (%) (Auto) 2 % (0-3) Basophils (%) (Auto) 1 % (0-3) Neutrophils # (Auto) 4.6 x10^3/uL (1.8-7.7) Lymphocytes # (Auto) 0.6 x10^3/uL (1.0-4.8) Monocytes # (Auto) 0.5 x10^3/uL (0.0-1.1) Eosinophils # (Auto) 0.1 x10^3/uL (0.0-0.7) Basophils # (Auto) 0.0 x10^3/uL (0.0-0.2) Sodium Level 143 mmol/L (136-145) Chloride Level 104 mmol/L (98-107) Carbon Dioxide Level 36 mmol/L (21-32) Anion Gap 3 (6-14) Blood Urea Nitrogen 37 mg/dL (8-26) Creatinine 1.6 mg/dL (0.7-1.3) Estimated GFR (Cockcroft-Gault) 42.6 Glucose Level 130 mg/dL (70-99) Calcium Level 8.1 mg/dL (8.5-10.1) Phosphorus Level 2.9 mg/dL (2.6-4.7) Micro Micro Microbiology 07/17/19 Urine Culture - Final, Complete 07/17/19 Urine Culture Result 1 (BOYD) - Final, Complete 07/17/19 Blood Culture - Final, Complete NO GROWTH AFTER 5 DAYS 07/17/19 Nose/Throat Culture - Final, Complete 07/17/19 - Final, Complete Review of Systems Constitutional: yes: weakness, alert, oriented Ears/Nose/Throat: Yes: no symptom reported Eyes: Yes: no symptom reported Pulmonary: Yes dyspnea Cardiovascular: Yes no symptom reported, Yes edema Gastrointestional: Yes: constipation Genitourinary: Yes: no symptom reported Musculoskeletal: Yes: muscle stiffness Skin: Yes no symptom reported Psychiatric/Neurological: Yes: no symptom reported Endocrine: Yes: no symptom reported Physical Exam General Appearance: no apparent distress Skin: warm, edema Respiratory: decreased breath sounds Heart: S1S2 Abdomen: soft, bowel sounds present Genitourinary: bladder flat Extremities: pulses present Neurology: alert, follow commands, confused Musculoskeletal: Osteoarthritis Assessment Assessment IMP [id number] WITH CR DOWN TO 1.6 FROM 3.3 ACUTE HYPOXEMIC HYPERCARBIC RESP FAILURE ACUTE CHF-SYSTOLIC CHRONIC LE EDEMA AFIB-S/P RECENT CARDIOVERSION HYPOTENSION-RESOLVED HTN-CURRENTLY S/P CODE BLUE HYPOMAGNESEMIA-CORRECTED HYPOKALEMIA PLAN CONT IV LASIX REPLACE MAG AND K NEEDED SUPPLEMENTAL O2 PULM EVAL AND TX AGREE WITH CA CHANNEL LINDA WILL FOLLOW KERA SABILLON MD July 26, 2019 11:25
[2019-07-26] MEDS: POTASSIUM CHLORIDE 20MEQ 100 ML IV SCH (20:33)
[2019-07-27] MEDS: POTASSIUM CHLORIDE 20MEQ 100 ML IV SCH ×3 (00:56→12:23)
[2019-07-27] MEDS ORDERED: QUEtiapine 25 MG TABLET. PO PRN (01:00)
[2019-07-27] MEDS ORDERED: HALOPERIDOL LACTATE 5 MG/ML VIAL. IM ONE (01:15)
[2019-07-27 03:00] VITALS: BP 136/79
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
[2019-07-27 07:00] VITALS: BP 135/83
[2019-07-27 07:09] LABS: CALCIUM 8.2 mg/dL (8.5-10.1); CREATININE 1.2 mg/dL (0.7-1.3); GFR 59.3; POTASSIUM 3.2 mmol/L (3.5-5.1)
[2019-07-27] MEDS ORDERED: ALTEPLASE 1MG SYRINGE. INT CAT ONE (08:00)
--- NOTE | 2019-07-27 08:06 | PDOC ---
Infectious Disease Note Subjective: Subjective Patient moved out of CCU No blood stained sputum Some chest pain Now has bloodstained urine Denies fever, nausea, vomiting, worsening shortness of breath, diarrhea, abdominal pain, rash Otherwise as above Vital Signs: Vital Signs Vital Signs Date Time Temp Pulse Resp B/P (MAP) Pulse Ox O2 Delivery O2 Flow Rate FiO2 07/27/19 07:00 97.3 82 16 135/83 (100) 95 Nasal Cannula 2.0 97.3 Physical Exam: PHYSICAL EXAM GENERAL: Awake, alert HEENT: No thrush, no icterus, no conjunctival petechia NECK: Supple. LUNGS: Clear anteriorly HEART: S1, S2. regular ABDOMEN: Soft, bowel sounds present, no guarding : Antunez in place pinkish urine EXTREMITIES: Trace edema, no cyanosis. DERMATOLOGIC: Warm, dry. No generalized rash. NEUROLOGIC: Alert, responsive LIJ without signs of complications Medications: Inpatient Meds: Current Medications Medications (Trade) Dose Ordered Sig/Chance Start Time Stop Time Status Last Admin Dose Admin Acetaminophen (Tylenol) 650 mg PRN Q6HRS PRN 07/17/19 10:30 Alprazolam (Xanax) 1 mg BID 07/17/19 21:00 07/26/19 20:27 1 MG Alteplase, Recombinant (Cathflo For Central Catheter Clearance) 1 mg 1X ONCE 07/27/19 08:00 07/27/19 08:01 UNV Amino Acids/ Glycerin/ Electrolytes 1,000 ml @ 50 mls/hr Q20H 07/23/19 13:15 07/23/19 17:04 DC Amiodarone HCl (Cordarone) 200 mg 1X ONCE 07/21/19 15:15 07/21/19 15:16 DC 07/21/19 15:38 200 MG Amiodarone HCl 150 mg/Dextrose 103 ml @ 618 mls/hr 1X ONCE 07/19/19 12:00 07/19/19 12:09 DC 07/19/19 12:15 618 MLS/HR Amiodarone HCl 450 mg/Dextrose 259 ml @ 0 mls/hr CONT PRN 07/20/19 10:00 Cancel Amlodipine Besylate (Norvasc) 5 mg DAILY 07/27/19 09:00 Apixaban (Eliquis) 5 mg BID 07/17/19 21:00 07/23/19 10:05 DC 07/23/19 08:17 5 MG Aspirin (Aspirin Chewable) 81 mg [id number] 07/20/19 08:00 07/26/19 09:17 81 MG Aspirin (Aspirin Rectal Supp) 300 mg 1X ONCE 07/17/19 05:45 07/17/19 05:46 DC 07/17/19 06:01 300 MG Atropine Sulfate (ATROPINE 0.5mg SYRINGE) 0.5 mg PRN Q5MIN PRN 07/17/19 11:00 07/25/19 18:27 DC Bumetanide (Bumex) 1 mg 1X ONCE 07/17/19 06:00 07/17/19 06:01 DC 07/17/19 06:00 1 MG Desmopressin Acetate (Ddavp) 4 mcg BID 07/22/19 14:00 07/23/19 09:01 DC 07/23/19 10:20 4 MCG Dexmedetomidine HCl 400 mcg/ Sodium Chloride 100 ml @ 0 mls/hr CONT PRN 07/17/19 11:00 07/25/19 18:27 DC 07/20/19 13:31 8.5 MLS/HR Dextrose 1,000 ml @ 75 mls/hr [id number] 07/23/19 17:00 07/24/19 11:06 DC 07/23/19 17:09 75 MLS/HR Digoxin (Lanoxin) 250 mcg 1X ONCE 07/19/19 04:10 07/19/19 06:15 DC 07/19/19 04:15 250 MCG Epinephrine HCl (EPINEPHrine SYRINGE) 4 mg STK-MED ONCE 07/18/19 16:08 07/19/19 16:08 DC Epinephrine HCl 5 mg/Sodium Chloride 255 ml @ 32.926 mls/ hr CONT PRN 07/18/19 14:00 07/24/19 11:06 DC Etomidate (Amidate) 20 mg 1X ONCE 07/17/19 04:45 07/17/19 04:46 DC 07/17/19 04:43 20 MG Furosemide (Lasix) 40 mg [id number] 07/23/19 14:00 07/26/19 15:03 40 MG Haloperidol Lactate (Haldol Inj) 2 mg 1X ONCE 07/27/19 01:15 07/27/19 01:16 DC 07/27/19 01:40 2 MG Heparin Sodium (Porcine) (Heparin Sodium) 7,000 unit 1X ONCE 07/18/19 14:45 07/18/19 14:52 DC 07/18/19 14:45 7,000 UNIT Heparin Sodium/ Sodium Chloride 500 ml @ As Directed STK-MED ONCE 07/18/19 15:11 07/18/19 15:11 DC Heparin Sodium/ Sodium Chloride (HEPARIN for ARTERIAL LINE FLUSH) 1,000 unit 1X ONCE 07/18/19 14:45 07/18/19 14:52 DC 07/18/19 14:45 1,000 UNIT Info (Anti-Coagulation Monitoring By Pharmacy) 1 each PRN DAILY PRN 07/18/19 08:00 07/20/19 14:42 1 EACH Info (Tpn Per Pharmacy) 1 each PRN DAILY PRN 07/22/19 08:45 Cancel Insulin Human Lispro (HumaLOG) 0-6 UNITS Q6HRS 07/17/19 12:00 07/23/19 10:06 DC Iodixanol (Visipaque 320) 100 ml 1X ONCE 07/18/19 14:45 07/18/19 14:52 DC 07/18/19 14:45 104 ML Lansoprazole (Prevacid) 30 mg DAILY 07/18/19 09:00 07/26/19 09:17 30 MG Lidocaine HCl (Lidocaine 1% 20ml Vial) 20 ml 1X ONCE 07/18/19 14:45 07/18/19 14:52 DC 07/18/19 14:45 10 ML Lidocaine HCl (Lidocaine HCl 2% Abboject) 80 mg 1X ONCE 07/20/19 10:00 07/20/19 10:03 DC 07/20/19 10:11 80 MG Lidocaine HCl (Xylocaine-Mpf 1% 2ml Vial) 2 ml STK-MED ONCE 07/18/19 13:05 07/18/19 13:05 DC Lidocaine HCl/ Dextrose 500 ml @ 0 mls/hr CONT PRN 07/20/19 10:00 07/21/19 15:07 DC 07/20/19 10:15 15 MLS/HR Linezolid/Dextrose 300 ml @ 300 mls/hr Q12HR 07/18/19 09:00 07/20/19 08:25 DC 07/19/19 21:29 300 MLS/HR Magnesium Hydroxide (Milk Of Magnesia) 2,400 mg PRN DAILY PRN 07/17/19 10:30 Magnesium Sulfate 50 ml @ 25 mls/hr 1X ONCE 07/26/19 09:45 07/26/19 11:44 DC 07/26/19 14:12 25 MLS/HR Magnesium Sulfate/ Dextrose 100 ml @ 100 mls/hr 1X ONCE 07/20/19 09:45 07/20/19 10:44 DC 07/20/19 11:43 100 MLS/HR Metolazone (Zaroxolyn) 2.5 mg QODAY 07/19/19 09:00 07/18/19 10:36 DC Metoprolol Tartrate (Lopressor) 12.5 mg Q12HR 07/23/19 21:00 07/26/19 20:28 12.5 MG Midazolam HCl 100 ml @ 0 mls/hr CONT PRN 07/17/19 07:15 07/25/19 18:27 DC 07/22/19 23:41 5 MLS/HR Milrinone Lactate/ Dextrose 100 ml @ 0 mls/hr CONT PRN 07/18/19 07:15 07/23/19 10:03 DC 07/20/19 02:37 4.2 MLS/HR Morphine Sulfate 30 ml @ 0 mls/hr CONT PRN PRN 07/18/19 12:45 07/25/19 18:27 DC 07/25/19 02:46 2 MLS/HR Morphine Sulfate (Morphine Sulfate) 4 mg PRN Q1HR PRN 07/17/19 11:15 07/18/19 13:53 4 MG Nitroglycerin (Nitrostat) 0.4 mg 1X ONCE 07/17/19 04:30 07/17/19 04:43 DC 07/17/19 04:29 0.4 MG Nitroglycerin/ Dextrose 250 ml @ 1.5 mls/hr CONT PRN 07/24/19 08:00 07/24/19 08:05 1.5 MLS/HR Norepinephrine Bitartrate 32 mg/ Dextrose 282 ml @ 0 mls/hr CONT PRN 07/18/19 11:15 07/23/19 10:05 DC 07/19/19 10:39 9 MLS/HR Norepinephrine Bitartrate 8 mg/ Dextrose 258 ml @ 0 mls/hr CONT PRN 07/17/19 06:30 07/18/19 13:40 DC 07/17/19 21:52 11 MLS/HR Ondansetron HCl (Zofran) 4 mg PRN Q8HRS PRN 07/17/19 06:00 07/18/19 05:59 DC Piperacillin Sod/ Tazobactam Sod 2.25 gm/Sodium Chloride 50 ml @ 100 mls/hr Q6HRS 07/17/19 18:00 07/22/19 08:47 DC 07/22/19 05:46 100 MLS/HR Piperacillin Sod/ Tazobactam Sod 3.375 gm/Sodium Chloride 50 ml @ 100 mls/hr Q8HRS 07/25/19 14:00 07/26/19 10:16 DC 07/26/19 05:33 100 MLS/HR Piperacillin Sod/ Tazobactam Sod 4.5 gm/Sodium Chloride 100 ml @ 200 mls/hr 1X ONCE 07/17/19 06:00 07/17/19 06:29 DC 07/17/19 11:14 200 MLS/HR Potassium Bicarbonate (Potassium Effervescent Tablet) 40 meq 1X ONCE 07/24/19 12:00 07/24/19 12:01 DC 07/24/19 11:54 40 MEQ Potassium Chloride/Water 100 ml @ 50 mls/hr Q2H 07/26/19 21:00 07/27/19 00:59 DC 07/27/19 00:56 50 MLS/HR Potassium Chloride (Klor-Con) 40 meq 1X ONCE 07/24/19 11:00 07/24/19 11:04 DC Propofol 100 ml @ 0 mls/hr CONT PRN 07/17/19 05:15 07/25/19 18:27 DC 07/24/19 18:33 10.9 MLS/HR Quetiapine Fumarate (SEROquel) 25 mg PRN Q6HRS PRN 07/27/19 01:00 07/27/19 01:21 25 MG Rocuronium [place] (Zemuron) 50 mg 1X ONCE 07/17/19 04:45 07/17/19 04:46 DC 07/17/19 04:44 50 MG Sodium Chloride 90 meq/Potassium Chloride 50 meq/ Potassium Phosphate 13.6 mmol/Magnesium Sulfate 10 meq/ Calcium Gluconate 10 meq/ Multivitamins 10 ml/Chromium/ Copper/Manganese/ Seleni/Zn 1 ml/ Total Parenteral Nutrition/Amino Acids/Dextrose/ Fat Emulsion Intravenous 1,512 ml @ 63 mls/hr TPN CONT 07/21/19 22:00 07/22/19 09:05 DC Ticagrelor (Brilinta) 90 mg 1X ONCE 07/19/19 17:00 07/19/19 17:07 DC 07/19/19 17:28 90 MG Vancomycin HCl (Vanco Per Pharmacy) 1 each PRN DAILY PRN 07/17/19 06:00 07/17/19 10:41 DC 07/17/19 06:43 1 EACH Vancomycin HCl (Vancomycin Trough Level) 1 each 1X ONCE 07/19/19 06:00 07/19/19 06:01 Cancel Vancomycin HCl 1.75 gm/Sodium Chloride 500 ml @ 250 mls/hr Q24H 07/18/19 06:30 07/17/19 10:38 DC Vancomycin HCl 2 gm/Sodium Chloride 500 ml @ 250 mls/hr 1X ONCE 07/17/19 06:00 07/17/19 07:59 DC 07/17/19 06:15 250 MLS/HR Vecuronium [place] (Norcuron Bolus) 20 mg STK-MED ONCE 07/18/19 12:00 07/19/19 08:48 DC Labs: Lab Laboratory Tests Test 07/26/19 14:40 07/26/19 19:00 07/26/19 23:47 07/27/19 06:52 Potassium Level 3.6 mmol/L (3.5-5.1) 3.2 mmol/L (3.5-5.1) 3.2 mmol/L (3.5-5.1) Glucose (Fingerstick) 121 mg/dL (70-99) Sodium Level 138 mmol/L (136-145) Chloride Level 100 mmol/L (98-107) Carbon Dioxide Level 29 mmol/L (21-32) Anion Gap 9 (6-14) Blood Urea Nitrogen 28 mg/dL (8-26) Creatinine 1.2 mg/dL (0.7-1.3) Estimated GFR (Cockcroft-Gault) 59.3 Glucose Level 108 mg/dL (70-99) Calcium Level 8.2 mg/dL (8.5-10.1) Phosphorus Level 2.0 mg/dL (2.6-4.7) Magnesium Level 2.0 mg/dL (1.8-2.4) Objective: Assessment: 1. Sepsis. 2. Leukocytosis. 3. Lactic acidosis. 4. Acute hypoxic respiratory failure, status post intubation. Bilateral pulmonary infiltrates 5. Congestive heart failure. s/p VT arrest 07/17 s/p PCI with stent placement 6. Cardiomyopathy. 7. DONTAE on Chronic kidney disease. 8. Gastroesophageal reflux disease. 9. On amiodarone. 10. COVID neg Plan: Plan of Care Monitor off antibiotics off Zosyn July 25 off Zyvox; s/p 1 dose of vancomycin Cultures neg Maintain aspiration precautions Supportive care Discussed with nursing staff MARGRET DORSEY MD July 27, 2019 08:06
[2019-07-27] MEDS: AMIODARONE HCL 200 MG TABLET. PO SCH (08:34)
[2019-07-27] MEDS: ALPRAZolam 0.5 MG TABLET FT SCH ×2 (08:36→20:52)
[2019-07-27] MEDS: ASPIRIN CHEWABLE 81 MG TABLET. PO SCH (08:36)
[2019-07-27] MEDS: LANSOPRAZOLE 30 MG TAB.RAP.DR FT SCH (08:36)
[2019-07-27] MEDS: amLODIPine BESYLATE 5 MG TABLET FT SCH (08:37)
[2019-07-27] MEDS: METOPROLOL TART IMMED RELEASE 25 MG TABLET. PO SCH (08:38)
--- NOTE | 2019-07-27 09:30 | NUR ---
Cathflo placed in blue port of central line & it worked well. All ports working now.
--- NOTE | 2019-07-27 09:42 | PDOC ---
PULMONARY PROGRESS NOTES Subjective Awake and alert following commands this am, extubated 07/24 Vitals Vital Signs Date Time Temp Pulse Resp B/P (MAP) Pulse Ox O2 Delivery O2 Flow Rate FiO2 07/27/19 08:38 78 165/83 07/27/19 07:00 97.3 16 95 Nasal Cannula 2.0 97.3 General: Alert, No acute distress Lungs: Other (decrease bs) Cardiovascular: S1, S2 Abdomen: Soft, Non-tender Extremities: Other (BLE +1 edema ) Skin: Warm Labs Laboratory Tests Test 07/25/19 12:15 07/25/19 18:00 07/26/19 02:10 07/26/19 14:40 Potassium Level 3.4 mmol/L (3.5-5.1) 3.7 mmol/L (3.5-5.1) 3.2 mmol/L (3.5-5.1) 3.6 mmol/L (3.5-5.1) Magnesium Level 2.2 mg/dL (1.8-2.4) 1.8 mg/dL (1.8-2.4) White Blood Count 5.9 x10^3/uL (4.0-11.0) Red Blood Count 4.24 x10^6/uL (4.30-5.70) Hemoglobin 12.5 g/dL (13.0-17.5) Hematocrit 37.2 % (39.0-53.0) Mean Corpuscular Volume 88 fL (79-100) Mean Corpuscular Hemoglobin 30 pg (25-35) Mean Corpuscular Hemoglobin Concent 34 g/dL (31-37) Red Cell Distribution Width 16.3 % (11.5-14.5) Platelet Count 186 x10^3/uL (140-400) Neutrophils (%) (Auto) 78 % (31-73) Lymphocytes (%) (Auto) 10 % (24-48) Monocytes (%) (Auto) 9 % (0-9) Eosinophils (%) (Auto) 2 % (0-3) Basophils (%) (Auto) 1 % (0-3) Neutrophils # (Auto) 4.6 x10^3/uL (1.8-7.7) Lymphocytes # (Auto) 0.6 x10^3/uL (1.0-4.8) Monocytes # (Auto) 0.5 x10^3/uL (0.0-1.1) Eosinophils # (Auto) 0.1 x10^3/uL (0.0-0.7) Basophils # (Auto) 0.0 x10^3/uL (0.0-0.2) Sodium Level 143 mmol/L (136-145) Chloride Level 104 mmol/L (98-107) Carbon Dioxide Level 36 mmol/L (21-32) Anion Gap 3 (6-14) Blood Urea Nitrogen 37 mg/dL (8-26) Creatinine 1.6 mg/dL (0.7-1.3) Estimated GFR (Cockcroft-Gault) 42.6 Glucose Level 130 mg/dL (70-99) Calcium Level 8.1 mg/dL (8.5-10.1) Phosphorus Level 2.9 mg/dL (2.6-4.7) Test 07/26/19 19:00 07/26/19 23:47 07/27/19 06:52 Potassium Level 3.2 mmol/L (3.5-5.1) 3.2 mmol/L (3.5-5.1) Glucose (Fingerstick) 121 mg/dL (70-99) Sodium Level 138 mmol/L (136-145) Chloride Level 100 mmol/L (98-107) Carbon Dioxide Level 29 mmol/L (21-32) Anion Gap 9 (6-14) Blood Urea Nitrogen 28 mg/dL (8-26) Creatinine 1.2 mg/dL (0.7-1.3) Estimated GFR (Cockcroft-Gault) 59.3 Glucose Level 108 mg/dL (70-99) Calcium Level 8.2 mg/dL (8.5-10.1) Phosphorus Level 2.0 mg/dL (2.6-4.7) Magnesium Level 2.0 mg/dL (1.8-2.4) Laboratory Tests Test 07/26/19 14:40 07/26/19 19:00 07/26/19 23:47 07/27/19 06:52 Potassium Level 3.6 mmol/L (3.5-5.1) 3.2 mmol/L (3.5-5.1) 3.2 mmol/L (3.5-5.1) Glucose (Fingerstick) 121 mg/dL (70-99) Sodium Level 138 mmol/L (136-145) Chloride Level 100 mmol/L (98-107) Carbon Dioxide Level 29 mmol/L (21-32) Anion Gap 9 (6-14) Blood Urea Nitrogen 28 mg/dL (8-26) Creatinine 1.2 mg/dL (0.7-1.3) Estimated GFR (Cockcroft-Gault) 59.3 Glucose Level 108 mg/dL (70-99) Calcium Level 8.2 mg/dL (8.5-10.1) Phosphorus Level 2.0 mg/dL (2.6-4.7) Magnesium Level 2.0 mg/dL (1.8-2.4) Medications Active Scripts Medications Dose Route/Sig Max Daily Dose Days Date Category Toprol XL (Metoprolol Succinate) 50 Mg Tab.er.24h 50 Mg PO DAILY 06/20/19 Rx Metolazone 2.5 Mg Tablet 2.5 Mg PO QODAY 06/20/19 Rx Furosemide 40 Mg Tablet 40 Mg PO [id number] 06/20/19 Rx Klor-Con M20 (Potassium Chloride) 20 Meq Tab.er.prt 20 Meq PO BIDWMEALS 06/20/19 Rx Amiodarone Hcl 200 Mg Tablet 200 Mg PO DAILY 06/20/19 Rx Eliquis (Apixaban) 5 Mg Tablet 5 Mg PO BID 06/20/19 Rx Acetaminophen 325 Mg Tablet 325 Mg PO Q6HRS 06/13/19 Reported Dicyclomine Hcl 10 Mg Capsule 1 Cap PO PRN TID PRN 05/17/19 Reported Nexium Capsule (Esomeprazole Magnesium) 40 Mg Capsule.dr 40 Mg PO DAILYAC 05/17/19 Reported Oxycodone Hcl Immed.release (Oxycodone Hcl) 15 Mg Tablet 15 Mg PO PRN Q12HR PRN 05/17/19 Reported Alprazolam 1 Mg Tablet 1 Tab PO BID 02/05/17 Reported Comments EF from 07/20/2019 <Conclusion> Left ventricle systolic function is mildly impaired. The Ejection Fraction is 40-45%. Septal motion consistent with conduction abnormality. Mild global hypokinesis. Technically difficult study. Limited study for EF only. cxr 07/25 basilar atelectasis Impression . IMPRESSION: 1. Acute hypoxemic hypercapnic respiratory failure. extubated 07/24 2. Bilateral pulmonary infiltrates, suspect combination of congestive heart failure and pneumonia. 3. Sepsis. 4. SARS-CoV 2, negative 5. Cardiomyopathy, ejection fraction of 15%., now 40% 6. Chronic atrial fibrillation. 7. DONTAE/Chronic kidney disease. 8. Acute on chronic systolic heart failure. 9. Hypotension, RESOLVED 10. Mild elevation in troponin. 11. Paroxysmal atrial fibrillation with recent cardioversion. 12. Status post CODE BLUE secondary to V. tach/coronary artery disease see below CArdiac CAth 07/18/2019 Conclusion 1. Normal biventricular filling pressures. 2. Mild pulmonary HTN 3. Normal cardiac output at 5.1 L/min 4. One vessel coronary disease. 5. Successful PCI of the RCA as described above 6. Patient had one episode of SVT with hypotension requiring synchronized cardioversion to SR. Plan . 1. extubated 07/24. on canula 2. bronchodilators/ CXR reviewed 3. Follow cardiology recs and lasix 4. off ABX Zosyn per ID 5. Follow nephrology recs 6. D/W RN and RT 7. Optimize BP 8. PT consult 9. speech f/u 10. hemoptysis better, off burlinta and eliquis CODE: FULL CHRISTY WEBER MD July 27, 2019 09:42
[2019-07-27] MEDS: FUROSEMIDE 40 MG/4 ML VIAL. IVP SCH (09:59)
[2019-07-27 11:00] VITALS: BP 125/66
--- NOTE | 2019-07-27 11:10 | PDOC ---
SABINO REYNAGA [employer]GER [employer]IGATIONS 07/27/19 1109: CARDIO Progress Notes Date and Time Date of Service 07/27/2019 Time of Evaluation 0910 Subjective Subjective: No Chest Pain, No shortness of breath, No Palpitations Vitals Vitals Vital Signs Date Time Temp Pulse Resp B/P (MAP) Pulse Ox O2 Delivery O2 Flow Rate FiO2 07/27/19 11:00 97.6 66 18 125/66 (85) 99 Nasal Cannula 2.0 97.6 Weight Weight [ ] Input and Output Intake and Output Intake and Output 07/27/19 07:00 Intake Total 1400 ml Output Total 4350 ml Balance -2950 ml Intake Oral 1200 ml Tube Feeding 200 ml Output Urine Total 4350 ml Laboratory Labs Laboratory Tests Test 07/26/19 14:40 07/26/19 19:00 07/26/19 23:47 07/27/19 06:52 Potassium Level 3.6 mmol/L (3.5-5.1) 3.2 mmol/L (3.5-5.1) 3.2 mmol/L (3.5-5.1) Glucose (Fingerstick) 121 mg/dL (70-99) Sodium Level 138 mmol/L (136-145) Chloride Level 100 mmol/L (98-107) Carbon Dioxide Level 29 mmol/L (21-32) Anion Gap 9 (6-14) Blood Urea Nitrogen 28 mg/dL (8-26) Creatinine 1.2 mg/dL (0.7-1.3) Estimated GFR (Cockcroft-Gault) 59.3 Glucose Level 108 mg/dL (70-99) Calcium Level 8.2 mg/dL (8.5-10.1) Phosphorus Level 2.0 mg/dL (2.6-4.7) Magnesium Level 2.0 mg/dL (1.8-2.4) Microbiology Micro Microbiology 07/17/19 Urine Culture - Final, Complete 07/17/19 Urine Culture Result 1 (BOYD) - Final, Complete 07/17/19 Blood Culture - Final, Complete NO GROWTH AFTER 5 DAYS 07/17/19 Nose/Throat Culture - Final, Complete 07/17/19 - Final, Complete Review of Systems Constitutional: yes: weakness, alert, oriented Ears/Nose/Throat: Yes: no symptom reported Eyes: Yes: no symptom reported Pulmonary: Yes dyspnea Cardiovascular: Yes no symptom reported, Yes edema Gastrointestional: Yes: constipation Genitourinary: Yes: no symptom reported Musculoskeletal: Yes: muscle stiffness Skin: Yes no symptom reported Psychiatric/Neurological: Yes: no symptom reported Endocrine: Yes: no symptom reported Physical Exam HEENT: Neck Supple W Full Motion Chest: Symmetric LUNGS: Other (diminished) Heart: RRR (SR with no significant ectopies overnight) Abdomen: Soft N/T Extremities: No Edema, No Calf Tenderness Neurology: alert, oriented, follow commands, confused Assessment Assessment 1. Acute on chronic respiratory failure with a/c CHF, PNA. COVID negative. Extubated 07/25/2019 2. Acute on chronic systolic CHF: compensated 3. ICM/NICM; EF better at 40-45% 4. CAD; s/p PCI/DARSHAN to the RCA 5. Septic shock; off pressors 6 DONTAE on CKD; cardiorenal syndrome. Cr now normalized 7. Arrhythmia: prior polymorphic VT with multiple post CVN, none further 8. PAFIB: maintaining SR 9. Hemoptysis: better but now has gross hematuria Recommendations 1. Continue amiodarone/metoprolol. 2. Continue ASA. hold brilinta and eliquis for now due to hemoptysis/gross hematuria, will reeval again tomorrow. 3. Secondary prevention measures 4. Lasix therapy, transition to PO.. Keep Mg and K at least 2.0 and 4.0 respectively, replace as warranted VENU YODER MD 07/27/19 1505: CARDIO Progress Notes Plan Plan Patient seen and examined. Agree with above nurse practitioner note. No acute events overnight. Creatinine has normalized. Continue bladder irrigation, agree with holding Brilinta and Eliquis. Supportive care for now. Agree with oral diuretics. Reviewed nephrology and PCP notes. Discussed with patient and nursing staff SABINO REYNAGA APRN July 27, 2019 11:09 VENU YODER MD July 27, 2019 15:05
[2019-07-27] MEDS ORDERED: ACETAMINOPHEN 325 MG TABLET. PO PRN (12:00)
--- NOTE | 2019-07-27 12:02 | PDOC ---
PROGRESS NOTES Subjective Subjective confused and agitated last night as he woke up in another room transferred out of icu. alert and coherent and calm now. lab reviewed. potassium low. has jade in place with gross hematuria. bp is okay. he is week Objective Objective Vital Signs Date Time Temp Pulse Resp B/P (MAP) Pulse Ox O2 Delivery O2 Flow Rate FiO2 07/27/19 11:00 97.6 66 18 125/66 (85) 99 Nasal Cannula 2.0 97.6 Intake and Output 07/27/19 07:00 Intake Total 1400 ml Output Total 4350 ml Balance -2950 ml Intake Oral 1200 ml Tube Feeding 200 ml Output Urine Total 4350 ml Physical Exam Abdomen: Soft Heart: Regular rate, Normal S1, Normal S2 Extremities: No edema General: Alert HEENT: Atraumatic Lungs: Clear to auscultation Neuro: Normal speech Psych/Mental Status: Mental status NL Skin: No rashes Assessment Assessment Problems Acute pulmonary edema. compensated 2. Acute on chronic systolic congestive heart failure.compensated 3. Severe cardiomyopathy with left ventricular ejection fraction improved to 40-45% 07/19 per echo 4. Acute hypoxic and hypercarbic respiratory failure, on the ventilator. 5. Paroxysmal atrial fibrillation, currently in NSR 6. sepsis with shock, shock resolved 7. chronic kidney disease stage 3. creatinine improved to 1.2 8. Gastroesophageal reflux disease. 9. bilateral lung infiltrates. suspect pneumonia treated hypokalemia hypomagnesemia treated VT cardiac arrest 07/17 and again 07/19 PCI RCA 07/17 hypertension gross hematuira hemoptysis resolved critical illness myopathy Medical Problems: (1) Acute exacerbation of CHF (congestive heart failure) Status: Acute (2) Acute on chronic renal insufficiency Status: Acute (3) Elevated troponin I level Status: Acute (4) Septic shock Status: Acute (5) Suspected COVID-19 virus infection Status: Acute Plan Plan of Care replete kcl switch to metoprolol succinate hold brillinta and eliquis due to gross hematuria continuous bladder irrigation for gross hematuria PT and OT continue furosemide and start oral kcl continue aspirin 81 mg daily MARH screen and patient concurs lab tomorrow scd for dvt prophylaxis Comment Review of Relevant I have reviewed the following items juan (where applicable) has been applied. Labs Laboratory Tests Test 07/25/19 12:15 07/25/19 18:00 07/26/19 02:10 07/26/19 14:40 Potassium Level 3.4 mmol/L (3.5-5.1) 3.7 mmol/L (3.5-5.1) 3.2 mmol/L (3.5-5.1) 3.6 mmol/L (3.5-5.1) Magnesium Level 2.2 mg/dL (1.8-2.4) 1.8 mg/dL (1.8-2.4) White Blood Count 5.9 x10^3/uL (4.0-11.0) Red Blood Count 4.24 x10^6/uL (4.30-5.70) Hemoglobin 12.5 g/dL (13.0-17.5) Hematocrit 37.2 % (39.0-53.0) Mean Corpuscular Volume 88 fL (79-100) Mean Corpuscular Hemoglobin 30 pg (25-35) Mean Corpuscular Hemoglobin Concent 34 g/dL (31-37) Red Cell Distribution Width 16.3 % (11.5-14.5) Platelet Count 186 x10^3/uL (140-400) Neutrophils (%) (Auto) 78 % (31-73) Lymphocytes (%) (Auto) 10 % (24-48) Monocytes (%) (Auto) 9 % (0-9) Eosinophils (%) (Auto) 2 % (0-3) Basophils (%) (Auto) 1 % (0-3) Neutrophils # (Auto) 4.6 x10^3/uL (1.8-7.7) Lymphocytes # (Auto) 0.6 x10^3/uL (1.0-4.8) Monocytes # (Auto) 0.5 x10^3/uL (0.0-1.1) Eosinophils # (Auto) 0.1 x10^3/uL (0.0-0.7) Basophils # (Auto) 0.0 x10^3/uL (0.0-0.2) Sodium Level 143 mmol/L (136-145) Chloride Level 104 mmol/L (98-107) Carbon Dioxide Level 36 mmol/L (21-32) Anion Gap 3 (6-14) Blood Urea Nitrogen 37 mg/dL (8-26) Creatinine 1.6 mg/dL (0.7-1.3) Estimated GFR (Cockcroft-Gault) 42.6 Glucose Level 130 mg/dL (70-99) Calcium Level 8.1 mg/dL (8.5-10.1) Phosphorus Level 2.9 mg/dL (2.6-4.7) Test 07/26/19 19:00 07/26/19 23:47 07/27/19 06:52 Potassium Level 3.2 mmol/L (3.5-5.1) 3.2 mmol/L (3.5-5.1) Glucose (Fingerstick) 121 mg/dL (70-99) Sodium Level 138 mmol/L (136-145) Chloride Level 100 mmol/L (98-107) Carbon Dioxide Level 29 mmol/L (21-32) Anion Gap 9 (6-14) Blood Urea Nitrogen 28 mg/dL (8-26) Creatinine 1.2 mg/dL (0.7-1.3) Estimated GFR (Cockcroft-Gault) 59.3 Glucose Level 108 mg/dL (70-99) Calcium Level 8.2 mg/dL (8.5-10.1) Phosphorus Level 2.0 mg/dL (2.6-4.7) Magnesium Level 2.0 mg/dL (1.8-2.4) Laboratory Tests Test 07/26/19 14:40 07/26/19 19:00 07/26/19 23:47 07/27/19 06:52 Potassium Level 3.6 mmol/L (3.5-5.1) 3.2 mmol/L (3.5-5.1) 3.2 mmol/L (3.5-5.1) Glucose (Fingerstick) 121 mg/dL (70-99) Sodium Level 138 mmol/L (136-145) Chloride Level 100 mmol/L (98-107) Carbon Dioxide Level 29 mmol/L (21-32) Anion Gap 9 (6-14) Blood Urea Nitrogen 28 mg/dL (8-26) Creatinine 1.2 mg/dL (0.7-1.3) Estimated GFR (Cockcroft-Gault) 59.3 Glucose Level 108 mg/dL (70-99) Calcium Level 8.2 mg/dL (8.5-10.1) Phosphorus Level 2.0 mg/dL (2.6-4.7) Magnesium Level 2.0 mg/dL (1.8-2.4) Microbiology 07/17/19 Urine Culture - Final, Complete 07/17/19 Urine Culture Result 1 (BOYD) - Final, Complete 07/17/19 Blood Culture - Final, Complete NO GROWTH AFTER 5 DAYS 07/17/19 Nose/Throat Culture - Final, Complete 07/17/19 - Final, Complete Medications Current Medications Nitroglycerin (Nitrostat) 0.4 mg STK-MED ONCE SL ; Start 07/17/19 at 04:28; Stop 07/17/19 at 04:28; Status DC Nitroglycerin (Nitrostat) 0.4 mg 1X ONCE SL Last administered on 07/17/19at 04:29; Start 07/17/19 at 04:30; Stop 07/17/19 at 04:43; Status DC Nitroglycerin/ Dextrose 250 ml @ 0 mls/hr 1X ONCE IV Last administered on 07/17/19at 04:47; Start 07/17/19 at 04:45; Stop 07/17/19 at 04:46; Status DC Rocuronium [place] (Zemuron) 50 mg 1X ONCE IV Last administered on 07/17/19at 04:44; Start 07/17/19 at 04:45; Stop 07/17/19 at 04:46; Status DC Etomidate (Amidate) 20 mg 1X ONCE IV Last administered on 07/17/19at 04:43; Start 07/17/19 at 04:45; Stop 07/17/19 at 04:46; Status DC Propofol 100 ml @ 0 mls/hr CONT PRN IV SEE PROTOCOL Last administered on 07/24/19at 18:33; Start 07/17/19 at 05:15; Stop 07/25/19 at 18:27; Status DC Aspirin (Aspirin Rectal Supp) 300 mg 1X ONCE VT Last administered on 07/17/19at 06:01; Start 07/17/19 at 05:45; Stop 07/17/19 at 05:46; Status DC Bumetanide (Bumex) 1 mg 1X ONCE IV Last administered on 07/17/19at 06:00; Start 07/17/19 at 06:00; Stop 07/17/19 at 06:01; Status DC Piperacillin Sod/ Tazobactam Sod 4.5 gm/Sodium Chloride 100 ml @ 200 mls/hr 1X ONCE IV Last administered on 07/17/19at 11:14; Start 07/17/19 at 06:00; Stop 07/17/19 at 06:29; Status DC Vancomycin HCl (Vanco Per Pharmacy) 1 each PRN DAILY PRN MC SEE COMMENTS Last administered on 07/17/19at 06:43; Start 07/17/19 at 06:00; Stop 07/17/19 at 10:41; Status DC Vancomycin HCl 2 gm/Sodium Chloride 500 ml @ 250 mls/hr 1X ONCE IV Last administered on 07/17/19at 06:15; Start 07/17/19 at 06:00; Stop 07/17/19 at 07:59; Status DC Ondansetron HCl (Zofran) 4 mg PRN Q8HRS PRN IV NAUSEA/VOMITING; Start 07/17/19 at 06:00; Stop 07/18/19 at 05:59; Status DC Norepinephrine Bitartrate 8 mg/ Dextrose 258 ml @ 0 mls/hr CONT PRN IV SEE I/O RECORD Last administered on 07/17/19at 21:52; Start 07/17/19 at 06:30; Stop 07/18/19 at 13:40; Status DC Vancomycin HCl 1.75 gm/Sodium Chloride 500 ml @ 250 mls/hr Q24H IV ; Start 07/18/19 at 06:30; Stop 07/17/19 at 10:38; Status DC Vancomycin HCl (Vancomycin Trough Level) 1 each 1X ONCE MC ; Start 07/19/19 at 06:00; Stop 07/19/19 at 06:01; Status Cancel Morphine Sulfate (Morphine Sulfate) 6 mg 1X ONCE IV Last administered on 07/17/19at 07:08; Start 07/17/19 at 07:15; Stop 07/17/19 at 07:16; Status DC Midazolam HCl 100 ml @ 0 mls/hr CONT PRN IV SEE PROTOCOL Last administered on 07/22/19at 23:41; Start 07/17/19 at 07:15; Stop 07/25/19 at 18:27; Status DC Morphine Sulfate (Morphine Sulfate) 4 mg PRN Q1HR PRN IV SEE COMMENTS.; Start 07/17/19 at 08:00; Stop 07/17/19 at 10:38; Status DC Heparin Sodium (Porcine) (Heparin Sodium) 5,000 unit Q12HR SQ ; Start 07/17/19 at 21:00; Stop 07/17/19 at 10:38; Status DC Amiodarone HCl (Cordarone) 200 mg DAILY PO Last administered on 07/21/19at 09:04; Start 07/18/19 at 09:00; Stop 07/21/19 at 15:07; Status DC Metolazone (Zaroxolyn) 2.5 mg QODAY PO ; Start 07/19/19 at 09:00; Stop 07/18/19 at 10:36; Status DC Potassium Chloride (Klor-Con) 20 meq BIDWMEALS PO Last administered on 07/17/19at 16:34; Start 07/17/19 at 17:00; Stop 07/18/19 at 10:36; Status DC Furosemide (Lasix) 40 mg [id number] IVP Last administered on 07/18/19at 08:03; Start 07/17/19 at 14:00; Stop 07/20/19 at 11:02; Status DC Morphine Sulfate (Morphine Sulfate) 2 mg PRN Q4HRS PRN IV SEE COMMENTS.; Start 07/17/19 at 10:30; Status Cancel Apixaban (Eliquis) 5 mg BID FT Last administered on 07/23/19at 08:17; Start 07/17/19 at 21:00; Stop 07/23/19 at 10:05; Status DC Insulin Human Lispro (HumaLOG) 0-6 UNITS Q6HRS SQ ; Start 07/17/19 at 12:00; Stop 07/23/19 at 10:06; Status DC Lansoprazole (Prevacid) 30 mg DAILY FT Last administered on 07/27/19at 08:36; Start 07/18/19 at 09:00 Acetaminophen (Tylenol) 650 mg PRN Q6HRS PRN FT MILD PAIN / TEMP > 100.3'F; Start 07/17/19 at 10:30 Alprazolam (Xanax) 1 mg BID FT Last administered on 07/27/19at 08:36; Start 07/17/19 at 21:00 Magnesium Hydroxide (Milk Of Magnesia) 2,400 mg PRN DAILY PRN FT CONSTIPATION; Start 07/17/19 at 10:30 Dexmedetomidine HCl 400 mcg/ Sodium Chloride 100 ml @ 0 mls/hr CONT PRN IV PER PROTOCOL Last administered on 07/20/19at 13:31; Start 07/17/19 at 11:00; Stop 07/25/19 at 18:27; Status DC Sodium Chloride 500 ml @ 500 mls/hr 1X PRN PRN IV SEE COMMENTS; Start 07/17/19 at 11:00; Stop 07/22/19 at 12:54; Status DC Atropine Sulfate (ATROPINE 0.5mg SYRINGE) 0.5 mg PRN Q5MIN PRN IV SEE COMMENTS; Start 07/17/19 at 11:00; Stop 07/25/19 at 18:27; Status DC Morphine Sulfate (Morphine Sulfate) 2 mg PRN Q1HR PRN IV SEE COMMENTS. Last administered on 07/17/19at 13:37; Start 07/17/19 at 11:15 Morphine Sulfate (Morphine Sulfate) 4 mg PRN Q1HR PRN IV SEE COMMENTS. Last administered on 07/18/19at 13:53; Start 07/17/19 at 11:15 Piperacillin Sod/ Tazobactam Sod 2.25 gm/Sodium Chloride 50 ml @ 100 mls/hr Q6HRS IV Last administered on 07/22/19at 05:46; Start 07/17/19 at 18:00; Stop 07/22/19 at 08:47; Status DC Magnesium Sulfate 50 ml @ 25 mls/hr 1X ONCE IV Last administered on 07/18/19at 08:04; Start 07/18/19 at 07:15; Stop 07/18/19 at 09:14; Status DC Milrinone Lactate/ Dextrose 100 ml @ 0 mls/hr CONT PRN IV SEE I/O RECORD Last administered on 07/20/19at 02:37; Start 07/18/19 at 07:15; Stop 07/23/19 at 10:03; Status DC Linezolid/Dextrose 300 ml @ 300 mls/hr Q12HR IV Last administered on 07/19/19at 21:29; Start 07/18/19 at 09:00; Stop 07/20/19 at 08:25; Status DC Info (Anti-Coagulation Monitoring By Pharmacy) 1 each PRN DAILY PRN MC SEE COMMENTS Last administered on 07/20/19at 14:42; Start 07/18/19 at 08:00 Vecuronium [place] (Norcuron Bolus) 10 mg STK-MED ONCE IV ; Start 07/18/19 at 09:12; Stop 07/18/19 at 09:12; Status DC Potassium Chloride/Water 100 ml @ 100 mls/hr 1X ONCE IV Last administered on 07/18/19at 10:04; Start 07/18/19 at 09:45; Stop 07/18/19 at 10:44; Status DC Magnesium Sulfate 50 ml @ 25 mls/hr 1X ONCE IV Last administered on 07/18/19at 10:03; Start 07/18/19 at 09:45; Stop 07/18/19 at 11:44; Status DC Norepinephrine Bitartrate 32 mg/ Dextrose 282 ml @ 0 mls/hr CONT PRN IV SEE I/O RECORD Last administered on 07/19/19at 10:39; Start 07/18/19 at 11:15; Stop 07/23/19 at 10:05; Status DC Morphine Sulfate 30 ml @ 0 mls/hr CONT PRN PRN IV PER PROTOCOL Last administered on 07/25/19at 02:46; Start 07/18/19 at 12:45; Stop 07/25/19 at 18:27; Status DC Lidocaine HCl (Xylocaine-Mpf 1% 2ml Vial) 2 ml STK-MED ONCE .ROUTE ; Start 07/18/19 at 13:05; Stop 07/18/19 at 13:05; Status DC Iodixanol (Visipaque 320) 100 ml STK-MED ONCE .ROUTE ; Start 07/18/19 at 13:05; Stop 07/18/19 at 13:06; Status DC Heparin Sodium/ Sodium Chloride 1,500 ml @ As Directed STK-MED ONCE .ROUTE ; Start 07/18/19 at 13:05; Stop 07/18/19 at 13:06; Status DC Vecuronium [place] (Norcuron Bolus) 10 mg STK-MED ONCE IV ; Start 07/18/19 at 13:49; Stop 07/18/19 at 13:49; Status DC Vecuronium [place] (Norcuron Bolus) 6 mg PRN Q4HRS PRN IV ANXIETY / AGITATION; Start 07/18/19 at 14:00; Stop 07/25/19 at 18:27; Status DC Epinephrine HCl 5 mg/Sodium Chloride 255 ml @ 32.926 mls/ hr CONT PRN IV SEE I/O RECORD; Start 07/18/19 at 14:00; Stop 07/24/19 at 11:06; Status DC Lidocaine HCl (Lidocaine 1% 20ml Vial) 20 ml STK-MED ONCE .ROUTE ; Start 07/18/19 at 14:11; Stop 07/18/19 at 14:11; Status DC Heparin Sodium (Porcine) (Heparin Sodium) 10,000 unit STK-MED ONCE .ROUTE ; Start 07/18/19 at 14:27; Stop 07/18/19 at 14:28; Status DC Heparin Sodium/ Sodium Chloride (HEPARIN for ARTERIAL LINE FLUSH) 1,000 unit 1X ONCE IART Last administered on 07/18/19at 14:45; Start 07/18/19 at 14:45; Stop 07/18/19 at 14:52; Status DC Heparin Sodium/ Sodium Chloride (HEPARIN for ARTERIAL LINE FLUSH) 1,000 unit 1X ONCE IART Last administered on 07/18/19at 14:45; Start 07/18/19 at 14:45; Stop 07/18/19 at 14:52; Status DC Iodixanol (Visipaque 320) 100 ml 1X ONCE IART Last administered on 07/18/19at 14:45; Start 07/18/19 at 14:45; Stop 07/18/19 at 14:52; Status DC Heparin Sodium (Porcine) (Heparin Sodium) 7,000 unit 1X ONCE IV Last administered on 07/18/19at 14:45; Start 07/18/19 at 14:45; Stop 07/18/19 at 14:52; Status DC Lidocaine HCl (Lidocaine 1% 20ml Vial) 20 ml 1X ONCE INJ Last administered on 07/18/19at 14:45; Start 07/18/19 at 14:45; Stop 07/18/19 at 14:52; Status DC Heparin Sodium/ Sodium Chloride 500 ml @ As Directed STK-MED ONCE .ROUTE ; Start 07/18/19 at 15:11; Stop 07/18/19 at 15:11; Status DC Ticagrelor (Brilinta) 180 mg 1X ONCE PO Last administered on 07/18/19at 16:08; Start 07/18/19 at 16:00; Stop 07/18/19 at 16:01; Status DC Digoxin (Lanoxin) 250 mcg 1X ONCE IV ; Start 07/19/19 at 06:15; Stop 07/19/19 at 06:16; Status Cancel Digoxin (Lanoxin) 250 mcg 1X ONCE IV Last administered on 07/19/19at 05:15; Start 07/19/19 at 05:15; Stop 07/19/19 at 06:11; Status DC Digoxin (Lanoxin) 250 mcg 1X ONCE IV Last administered on 07/19/19at 08:48; Start 07/19/19 at 09:00; Stop 07/19/19 at 09:01; Status DC Digoxin (Lanoxin) 250 mcg 1X ONCE IV Last administered on 07/19/19at 04:15; Start 07/19/19 at 04:10; Stop 07/19/19 at 06:15; Status DC Vecuronium [place] (Norcuron Bolus) 20 mg STK-MED ONCE IV ; Start 07/18/19 at 12:00; Stop 07/19/19 at 08:48; Status DC Potassium Chloride/Water 100 ml @ 100 mls/hr 1X ONCE IV Last administered on 07/19/19at 12:13; Start 07/19/19 at 11:45; Stop 07/19/19 at 12:44; Status DC Amiodarone HCl 150 mg/Dextrose 103 ml @ 618 mls/hr 1X ONCE IV Last administered on 07/19/19at 12:15; Start 07/19/19 at 12:00; Stop 07/19/19 at 12:09 ; Status DC Metoprolol Tartrate (Lopressor) 12.5 mg Q6HRS PO Last administered on 07/23/19at 05:54; Start 07/19/19 at 12:00; Stop 07/23/19 at 10:05; Status DC Amiodarone HCl (Cordarone) 300 mg STK-MED ONCE .ROUTE ; Start 07/18/19 at 16:08; Stop 07/19/19 at 16:08; Status DC Epinephrine HCl (EPINEPHrine SYRINGE) 4 mg STK-MED ONCE .ROUTE ; Start 07/18/19 at 16:08; Stop 07/19/19 at 16:08; Status DC Aspirin (Aspirin Chewable) 81 mg 1X ONCE PO Last administered on 07/19/19at 17:28; Start 07/19/19 at 17:00; Stop 07/19/19 at 17:06; Status DC Aspirin (Aspirin Chewable) 81 mg DAILYWBKFT PO Last administered on 07/27/19at 08:36; Start 07/20/19 at 08:00 Ticagrelor (Brilinta) 90 mg BID PO Last administered on 07/25/19at 08:23; Start 07/20/19 at 09:00; Stop 07/25/19 at 14:13; Status DC Ticagrelor (Brilinta) 90 mg 1X ONCE PO Last administered on 07/19/19at 17:28; Start 07/19/19 at 17:00; Stop 07/19/19 at 17:07; Status DC Info (Tpn Per Pharmacy) 1 each PRN DAILY PRN MC SEE COMMENTS Last administered on 07/21/19at 11:58; Start 07/19/19 at 17:00; Stop 07/21/19 at 19:42; Status DC Magnesium Sulfate/ Dextrose 100 ml @ 100 mls/hr 1X ONCE IV Last administered on 07/20/19at 09:40; Start 07/20/19 at 09:45; Stop 07/20/19 at 10:44; Status DC Magnesium Sulfate/ Dextrose 100 ml @ 100 mls/hr 1X ONCE IV Last administered on 07/20/19at 11:43; Start 07/20/19 at 09:45; Stop 07/20/19 at 10:44; Status DC Potassium Chloride/Water 100 ml @ 100 mls/hr Q1H IV Last administered on 07/20/19at 15:45; Start 07/20/19 at 09:45; Stop 07/20/19 at 13:44; Status DC Amiodarone HCl 450 mg/Dextrose 259 ml @ 0 mls/hr CONT PRN IV SEE I/O RECORD; Start 07/20/19 at 10:00; Status Cancel Lidocaine HCl (Lidocaine HCl 2% Abboject) 80 mg 1X ONCE IV Last administered on 07/20/19at 10:11; Start 07/20/19 at 10:00; Stop 07/20/19 at 10:03; Status DC Lidocaine HCl/ Dextrose 500 ml @ 0 mls/hr CONT PRN IV SEE I/O RECORD Last administered on 07/20/19at 10:15; Start 07/20/19 at 10:00; Stop 07/21/19 at 15:07; Status DC Furosemide (Lasix) 40 mg DAILY IVP Last administered on 07/22/19at 09:03; Start 07/21/19 at 09:00; Stop 07/22/19 at 12:54; Status DC Sodium Chloride 90 meq/Potassium Chloride 50 meq/ Potassium Phosphate 13.6 mmol/Magnesium Sulfate 10 meq/ Calcium Gluconate 10 meq/ Multivitamins 10 ml/Chromium/ Copper/Manganese/ Seleni/Zn 1 ml/ Total Parenteral Nutrition/Amino Acids/Dextrose/ Fat Emulsion Intravenous 1,512 ml @ 63 mls/hr TPN CONT IV Last administered on 07/20/19at 22:01; Start 07/20/19 at 22:00; Stop 07/21/19 at 21:59; Status DC Sodium Chloride 90 meq/Potassium Chloride 50 meq/ Potassium Phosphate 13.6 mmol/Magnesium Sulfate 10 meq/ Calcium Gluconate 10 meq/ Multivitamins 10 ml/Chromium/ Copper/Manganese/ Seleni/Zn 1 ml/ Total Parenteral Nutrition/Amino Acids/Dextrose/ Fat Emulsion Intravenous 1,512 ml @ 63 mls/hr TPN CONT IV ; Start 07/21/19 at 22:00; Stop 07/22/19 at 09:05; Status DC Potassium Chloride (Klor-Con) 40 meq 1X ONCE PO Last administered on 07/21/19at 15:38; Start 07/21/19 at 14:30; Stop 07/21/19 at 14:33; Status DC Amiodarone HCl (Cordarone) 400 mg DAILY PO Last administered on 07/27/19at 08:34; Start 07/22/19 at 09:00 Amiodarone HCl (Cordarone) 200 mg 1X ONCE PO Last administered on 07/21/19at 15:38; Start 07/21/19 at 15:15; Stop 07/21/19 at 15:16; Status DC Info (Tpn Per Pharmacy) 1 each PRN DAILY PRN MC SEE COMMENTS; Start 07/22/19 at 08:45; Status Cancel Piperacillin Sod/ Tazobactam Sod 3.375 gm/Sodium Chloride 50 ml @ 100 mls/hr Q6HRS IV Last administered on 07/25/19at 05:33; Start 07/22/19 at 12:00; Stop 07/25/19 at 10:10; Status DC Potassium Chloride (Klor-Con) 40 meq 1X ONCE PO Last administered on 07/22/19at 12:03; Start 07/22/19 at 11:45; Stop 07/22/19 at 11:47; Status DC Desmopressin Acetate (Ddavp) 4 mcg BID SQ Last administered on 07/23/19at 10:20; Start 07/22/19 at 14:00; Stop 07/23/19 at 09:01; Status DC Metoprolol Tartrate (Lopressor) 12.5 mg Q12HR PO Last administered on 07/27/19at 08:38; Start 07/23/19 at 21:00 Potassium Bicarbonate (Potassium Effervescent Tablet) 40 meq 1X ONCE PO Last administered on 07/23/19at 12:49; Start 07/23/19 at 10:15; Stop 07/23/19 at 10:16; Status DC Magnesium Sulfate 50 ml @ 25 mls/hr PRN DAILY PRN IV for Mag < 1.7 on am labs; Start 07/23/19 at 13:15 Potassium Chloride/Water 100 ml @ 50 mls/hr PRN Q6HRS PRN IV For K < 3.7 Last administered on 07/25/19at 06:28; Start 07/23/19 at 13:15 Potassium Chloride/Water 100 ml @ 50 mls/hr PRN Q2HR PRN IV total of 40mEq for K < 3.5 Last administered on 07/26/19at 06:15; Start 07/23/19 at 13:15 Amino Acids/ Glycerin/ Electrolytes 1,000 ml @ 50 mls/hr Q20H IV ; Start 07/23/19 at 13:15; Stop 07/23/19 at 17:04; Status DC Furosemide (Lasix) 40 mg [id number] IVP Last administered on 07/27/19at 09:59; Start 07/23/19 at 14:00; Stop 07/27/19 at 11:08; Status DC Dextrose 1,000 ml @ 75 mls/hr [id number] IV Last administered on 07/23/19at 17:09; Start 07/23/19 at 17:00; Stop 07/24/19 at 11:06; Status DC Nitroglycerin/ Dextrose 250 ml @ 1.5 mls/hr CONT PRN IV SEE I/O RECORD Last administered on 07/24/19at 08:05; Start 07/24/19 at 08:00 Potassium Chloride (Klor-Con) 40 meq 1X ONCE PO ; Start 07/24/19 at 11:00; Stop 07/24/19 at 11:04; Status DC Potassium Bicarbonate (Potassium Effervescent Tablet) 40 meq 1X ONCE PO Last administered on 07/24/19at 11:54; Start 07/24/19 at 12:00; Stop 07/24/19 at 12:01; Status DC Magnesium Sulfate 50 ml @ 25 mls/hr PRN DAILY PRN IV for Mag < 1.7 on am labs; Start 07/25/19 at 08:45; Stop 07/25/19 at 15:52; Status DC Magnesium Sulfate 50 ml @ 25 mls/hr 1X ONCE IV Last administered on 07/25/19at 10:05; Start 07/25/19 at 10:00; Stop 07/25/19 at 11:59; Status DC Piperacillin Sod/ Tazobactam Sod 3.375 gm/Sodium Chloride 50 ml @ 100 mls/hr Q8HRS IV Last administered on 07/26/19at 05:33; Start 07/25/19 at 14:00; Stop 07/26/19 at 10:16; Status DC Amlodipine Besylate (Norvasc) 2.5 mg DAILY FT Last administered on 07/26/19at 09:16; Start 07/25/19 at 11:00; Stop 07/26/19 at 10:16; Status DC Potassium Chloride/Water 100 ml @ 100 mls/hr Q1H IV Last administered on 07/25/19at 16:01; Start 07/25/19 at 15:00; Stop 07/25/19 at 16:59; Status DC Potassium Chloride/Water 100 ml @ 50 mls/hr 1X ONCE IV Last administered on 07/26/19at 09:53; Start 07/26/19 at 10:00; Stop 07/26/19 at 11:59; Status DC Potassium Chloride/Water 100 ml @ 50 mls/hr 1X ONCE IV Last administered on 07/26/19at 12:24; Start 07/26/19 at 12:00; Stop 07/26/19 at 13:59; Status DC Magnesium Sulfate 50 ml @ 25 mls/hr 1X ONCE IV Last administered on 07/26/19at 14:12; Start 07/26/19 at 09:45; Stop 07/26/19 at 11:44; Status DC Amlodipine Besylate (Norvasc) 5 mg DAILY FT Last administered on 07/27/19at 08:37; Start 07/27/19 at 09:00 Potassium Chloride/Water 100 ml @ 50 mls/hr Q2H IV Last administered on 07/27/19at 00:56; Start 07/26/19 at 21:00; Stop 07/27/19 at 00:59; Status DC Haloperidol Lactate (Haldol Inj) 2 mg 1X ONCE IM Last administered on 07/27/19at 01:40; Start 07/27/19 at 01:15; Stop 07/27/19 at 01:16; Status DC Quetiapine Fumarate (SEROquel) 25 mg PRN Q6HRS PRN PO AGITATION Last administered on 07/27/19at 01:21; Start 07/27/19 at 01:00 Alteplase, Recombinant (Cathflo For Central Catheter Clearance) 1 mg 1X ONCE INT CAT Last administered on 07/27/19at 08:43; Start 07/27/19 at 08:00; Stop 07/27/19 at 08:15; Status DC Potassium Chloride/Water 100 ml @ 50 mls/hr Q2H IV Last administered on 07/27/19at 09:59; Start 07/27/19 at 09:00; Stop 07/27/19 at 12:59 Furosemide (Lasix) 40 mg DAILY PO ; Start 07/28/19 at 09:00 Active Scripts Active Toprol XL (Metoprolol Succinate) 50 Mg Tab.er.24h 50 Mg PO DAILY Metolazone 2.5 Mg Tablet 2.5 Mg PO QODAY Furosemide 40 Mg Tablet 40 Mg PO [id number] Klor-Con M20 (Potassium Chloride) 20 Meq Tab.er.prt 20 Meq PO BIDWMEALS Amiodarone Hcl 200 Mg Tablet 200 Mg PO DAILY Eliquis (Apixaban) 5 Mg Tablet 5 Mg PO BID Reported Acetaminophen 325 Mg Tablet 325 Mg PO Q6HRS Dicyclomine Hcl 10 Mg Capsule 1 Cap PO PRN TID PRN Nexium Capsule (Esomeprazole Magnesium) 40 Mg Capsule.dr 40 Mg PO DAILYAC Oxycodone Hcl Immed.release (Oxycodone Hcl) 15 Mg Tablet 15 Mg PO PRN Q12HR PRN Alprazolam 1 Mg Tablet 1 Tab PO BID Vitals/I & O Vital Sign - Last 24 Hours 07/26/19 07/26/19 07/26/19 07/26/19 12:10 12:30 14:40 18:26 Temp 98.1 98.2 98.1 98.1 98.2 98.1 Pulse 86 86 84 Resp 20 20 B/P (MAP) 148/85 (106) 145/72 (96) 136/65 (88) Pulse Ox 95 96 96 O2 Delivery Nasal Cannula Nasal Cannula Nasal Cannula Nasal Cannula O2 Flow Rate 2.0 2.0 2.0 2.0 07/26/19 07/26/19 07/26/19 07/26/19 18:54 20:00 20:00 20:28 Pulse 100 84 B/P (MAP) 99/46 (63) 136/65 Pulse Ox 94 O2 Delivery BiPAP/CPAP Nasal Cannula Nasal Cannula O2 Flow Rate 2.0 2.0 07/26/19 07/27/19 07/27/19 07/27/19 23:15 03:00 07:00 08:00 Temp 97.9 98.7 97.3 97.9 98.7 97.3 Pulse 68 93 82 Resp 20 20 16 B/P (MAP) 178/84 (115) 136/79 (98) 135/83 (100) Pulse Ox 96 98 95 O2 Delivery Nasal Cannula Nasal Cannula Nasal Cannula Nasal Cannula O2 Flow Rate 2.0 2.0 2.0 2.0 07/27/19 07/27/19 07/27/19 07/27/19 08:34 08:37 08:38 11:00 Temp 97.6 97.6 Pulse 77 78 78 66 Resp 18 B/P (MAP) 165/83 165/83 165/83 125/66 (85) Pulse Ox 99 O2 Delivery Nasal Cannula O2 Flow Rate 2.0 Intake and Output 07/26/19 07/26/19 07/27/19 15:00 23:00 07:00 Intake Total 200 ml 900 ml 300 ml Output Total 1600 ml 1200 ml 1550 ml Balance -1400 ml -300 ml -1250 ml RICK CAROLINA MD July 27, 2019 12:02
--- NOTE | 2019-07-27 12:11 | NUR ---
SS following up with discharge planning. SS reviewed pt chart and discussed with pt RN. Pt currently requiring oxygen. Pt pulled Dobhoff out. Pt is currently on PO Lasix. PT/OT recommending assisted unit. Dr. No wanting pt to go to [facility], ; fax [phone]. Pt has [facility]. SS contacted [facility] and faxed facesheet to check if insurance is in network. Pt reported that if not in network he will be okay with [facility], ; fax [phone]. SS will continue to follow for discharge planning.
--- NOTE | 2019-07-27 12:26 | PDOC ---
Renal-Progress Notes Subjective Notes Notes FEELS WELL History of Present Illness Hx of present illness GROSS HEMATURIA Vitals Vitals Vital Signs Date Time Temp Pulse Resp B/P (MAP) Pulse Ox O2 Delivery O2 Flow Rate FiO2 07/27/19 11:00 97.6 66 18 125/66 (85) 99 Nasal Cannula 2.0 97.6 Weight Weight [ ] I.O. Intake and Output Intake and Output 07/27/19 07:00 Intake Total 1400 ml Output Total 4350 ml Balance -2950 ml Intake Oral 1200 ml Tube Feeding 200 ml Output Urine Total 4350 ml Labs Labs Laboratory Tests Test 07/26/19 14:40 07/26/19 19:00 07/26/19 23:47 07/27/19 06:52 Potassium Level 3.6 mmol/L (3.5-5.1) 3.2 mmol/L (3.5-5.1) 3.2 mmol/L (3.5-5.1) Glucose (Fingerstick) 121 mg/dL (70-99) Sodium Level 138 mmol/L (136-145) Chloride Level 100 mmol/L (98-107) Carbon Dioxide Level 29 mmol/L (21-32) Anion Gap 9 (6-14) Blood Urea Nitrogen 28 mg/dL (8-26) Creatinine 1.2 mg/dL (0.7-1.3) Estimated GFR (Cockcroft-Gault) 59.3 Glucose Level 108 mg/dL (70-99) Calcium Level 8.2 mg/dL (8.5-10.1) Phosphorus Level 2.0 mg/dL (2.6-4.7) Magnesium Level 2.0 mg/dL (1.8-2.4) Micro Micro Microbiology 07/17/19 Urine Culture - Final, Complete 07/17/19 Urine Culture Result 1 (BOYD) - Final, Complete 07/17/19 Blood Culture - Final, Complete NO GROWTH AFTER 5 DAYS 07/17/19 Nose/Throat Culture - Final, Complete 07/17/19 - Final, Complete Review of Systems Constitutional: yes: weakness, alert, oriented Ears/Nose/Throat: Yes: no symptom reported Eyes: Yes: no symptom reported Pulmonary: Yes dyspnea Cardiovascular: Yes no symptom reported, Yes edema Gastrointestional: Yes: constipation Genitourinary: Yes: no symptom reported Musculoskeletal: Yes: muscle stiffness Skin: Yes no symptom reported Psychiatric/Neurological: Yes: no symptom reported Endocrine: Yes: no symptom reported Physical Exam General Appearance: no apparent distress Skin: warm, edema Respiratory: decreased breath sounds Heart: S1S2 Abdomen: soft, bowel sounds present Genitourinary: bladder flat Extremities: pulses present Neurology: alert, oriented, follow commands, confused Musculoskeletal: Osteoarthritis Assessment Assessment IMP GROSS HEMATURIA [id number] WITH CR DOWN TO 1.2 FROM 3.3 ACUTE HYPOXEMIC HYPERCARBIC RESP FAILURE ACUTE CHF-SYSTOLIC CHRONIC LE EDEMA AFIB-S/P RECENT CARDIOVERSION HYPOTENSION-RESOLVED HTN-CURRENTLY S/P CODE BLUE HYPOMAGNESEMIA-CORRECTED HYPOKALEMIA LOW PHOS PLAN REPLACE K AND PO4 MAY NEED CBI AGREE WITH HOLDING ANTICOAGULANTS PO LASIX REPLACE MAG AND K NEEDED SUPPLEMENTAL O2 NEEDED PULM EVAL AND TX WILL FOLLOW KERA SABILLON MD July 27, 2019 12:26
[2019-07-27] MEDS ORDERED: SODIUM PHOSPHATE 15 MMOL in IV NORMAL SALINE 100ML 100 ML IV ONE (12:30)
[2019-07-27 14:34] VITALS: BP 124/63
--- NOTE | 2019-07-27 14:45 | NUR ---
Replaced jade catheter with a 3 way jade, had a little trouble getting continuous bladder irrigation to work at first, due to possible blood clots, but used piston to irrigate & eventually got it working well. Will continue to monitor.
--- NOTE | 2019-07-27 14:45 | NUR ---
SS following up with discharge planning. SS received notification from [facility] that pt's insurance is in network. SS phoned and faxed referral to [facility], ; fax [phone]. SS will await acceptance decision and insurance determination and will proceed accordingly.
--- NOTE | 2019-07-27 15:43 | NUR ---
SS following up with discharge planning. [facility] contacted SS and reported that they cannot accept pt due to his ejection fraction. They reported that they would contact Dr. No and explain. SS phoned and faxed referral to [facility], ; fax [phone]. SS will continue to follow for discharge planning.
[2019-07-27 18:29] VITALS: BP 135/72
[2019-07-27] MEDS: POTASSIUM CHLORIDE 20 MEQ TABLET.ER. PO SCH (20:52)
[2019-07-27] MEDS: oxyCODONE IR 5 MG TABLET PO PRN (20:53)
[2019-07-27 22:54] VITALS: BP 135/62
[2019-07-28] VITALS (7 sets, daily range): BP systolic 115–149; BP diastolic 64–81
[2019-07-28 06:44] LABS: BASO % 1 % (0-3); EOS # 0.2 x10^3/uL (0.0-0.7); EOS % 4 % (0-3); HEMATOCRIT 40.1 % (39.0-53.0); HEMOGLOBIN 13.6 g/dL (13.0-17.5); LYMPH # 0.7 x10^3/uL (1.0-4.8); LYMPH % 14 % (24-48); MEAN CORPUSCULAR HEMOGLOBIN 30 pg (25-35); MEAN CORPUSCULAR HGB CONC 34 g/dL (31-37); MEAN CORPUSCULAR VOLUME 87 fL (79-100); MONO # 0.5 x10^3/uL (0.0-1.1); MONO % 9 % (0-9); NEUT # 4.1 x10^3/uL (1.8-7.7); NEUT % 74 % (31-73); PLATELET COUNT 246 x10^3/uL (140-400); RED BLOOD COUNT 4.58 x10^6/uL (4.30-5.70); RED CELL DISTRIBUTION WIDTH 16.4 % (11.5-14.5); WHITE BLOOD COUNT 5.5 x10^3/uL (4.0-11.0)
[2019-07-28 07:04] LABS: CALCIUM 8.3 mg/dL (8.5-10.1); CREATININE 1.3 mg/dL (0.7-1.3); GFR 54.1; MAGNESIUM 2.2 mg/dL (1.8-2.4); PHOSPHORUS 2.9 mg/dL (2.6-4.7); POTASSIUM 3.4 mmol/L (3.5-5.1)
[2019-07-28] MEDS: ALPRAZolam 0.5 MG TABLET FT SCH ×2 (07:51→21:01)
[2019-07-28] MEDS: FUROSEMIDE 40 MG TABLET. PO SCH (07:51)
[2019-07-28] MEDS: METOPROLOL SUCC 24HR ER 25 MG TAB.ER.24H. PO SCH (07:52)
[2019-07-28] MEDS: ASPIRIN CHEWABLE 81 MG TABLET. PO SCH (07:52)
[2019-07-28] MEDS: PANTOPRAZOLE 40 MG TABLET.DR. PO SCH (07:52)
[2019-07-28] MEDS: POTASSIUM CHLORIDE 20 MEQ TABLET.ER. PO SCH ×2 (07:52→21:02)
[2019-07-28] MEDS: AMIODARONE HCL 200 MG TABLET. PO SCH (07:53)
[2019-07-28] MEDS: amLODIPine BESYLATE 5 MG TABLET FT SCH (07:53)
--- NOTE | 2019-07-28 09:56 | PDOC ---
Infectious Disease Note Subjective: Subjective Patient feels better Denies fever, nausea, vomiting, worsening shortness of breath, diarrhea, abdominal pain, rash Urine in Antunez bag is getting clear Otherwise as above Vital Signs: Vital Signs Vital Signs Date Time Temp Pulse Resp B/P (MAP) Pulse Ox O2 Delivery O2 Flow Rate FiO2 07/28/19 08:00 Nasal Cannula 2.0 07/28/19 07:53 72 119/70 07/28/19 07:27 97.4 18 95 97.4 Physical Exam: PHYSICAL EXAM GENERAL: Awake, alert HEENT: No thrush, no icterus, no conjunctival petechia NECK: Supple. LUNGS: Clear anteriorly HEART: S1, S2. regular ABDOMEN: Soft, bowel sounds present, no guarding : Antunez in place pinkish urine EXTREMITIES: Trace edema, no cyanosis. DERMATOLOGIC: Warm, dry. No generalized rash. NEUROLOGIC: Alert, responsive LIJ without signs of complications Medications: Inpatient Meds: Current Medications Medications (Trade) Dose Ordered Sig/Chance Start Time Stop Time Status Last Admin Dose Admin Acetaminophen (Tylenol) 650 mg PRN Q6HRS PRN 07/27/19 12:00 Alprazolam (Xanax) 1 mg BID 07/17/19 21:00 07/28/19 07:51 1 MG Alteplase, Recombinant (Cathflo For Central Catheter Clearance) 1 mg 1X ONCE 07/27/19 08:00 07/27/19 08:15 DC 07/27/19 08:43 1 MG Amino Acids/ Glycerin/ Electrolytes 1,000 ml @ 50 mls/hr Q20H 07/23/19 13:15 07/23/19 17:04 DC Amiodarone HCl (Cordarone) 200 mg 1X ONCE 07/21/19 15:15 07/21/19 15:16 DC 07/21/19 15:38 200 MG Amiodarone HCl 150 mg/Dextrose 103 ml @ 618 mls/hr 1X ONCE 07/19/19 12:00 07/19/19 12:09 DC 07/19/19 12:15 618 MLS/HR Amiodarone HCl 450 mg/Dextrose 259 ml @ 0 mls/hr CONT PRN 07/20/19 10:00 Cancel Amlodipine Besylate (Norvasc) 5 mg DAILY 5/28/20 09:00 07/28/19 07:53 5 MG Apixaban (Eliquis) 5 mg BID 07/17/19 21:00 07/23/19 10:05 DC 07/23/19 08:17 5 MG Aspirin (Aspirin Chewable) 81 mg [id number] 07/20/19 08:00 07/28/19 07:52 81 MG Aspirin (Aspirin Rectal Supp) 300 mg 1X ONCE 07/17/19 05:45 07/17/19 05:46 DC 07/17/19 06:01 300 MG Atropine Sulfate (ATROPINE 0.5mg SYRINGE) 0.5 mg PRN Q5MIN PRN 07/17/19 11:00 07/25/19 18:27 DC Bumetanide (Bumex) 1 mg 1X ONCE 07/17/19 06:00 07/17/19 06:01 DC 07/17/19 06:00 1 MG Desmopressin Acetate (Ddavp) 4 mcg BID 07/22/19 14:00 07/23/19 09:01 DC 07/23/19 10:20 4 MCG Dexmedetomidine HCl 400 mcg/ Sodium Chloride 100 ml @ 0 mls/hr CONT PRN 07/17/19 11:00 07/25/19 18:27 DC 07/20/19 13:31 8.5 MLS/HR Dextrose 1,000 ml @ 75 mls/hr [id number] 07/23/19 17:00 07/24/19 11:06 DC 07/23/19 17:09 75 MLS/HR Digoxin (Lanoxin) 250 mcg 1X ONCE 07/19/19 04:10 07/19/19 06:15 DC 07/19/19 04:15 250 MCG Epinephrine HCl (EPINEPHrine SYRINGE) 4 mg STK-MED ONCE 07/18/19 16:08 07/19/19 16:08 DC Epinephrine HCl 5 mg/Sodium Chloride 255 ml @ 32.926 mls/ hr CONT PRN 07/18/19 14:00 07/24/19 11:06 DC Etomidate (Amidate) 20 mg 1X ONCE 07/17/19 04:45 07/17/19 04:46 DC 07/17/19 04:43 20 MG Furosemide (Lasix) 40 mg DAILY 07/28/19 09:00 07/28/19 07:51 40 MG Haloperidol Lactate (Haldol Inj) 2 mg 1X ONCE 07/27/19 01:15 07/27/19 01:16 DC 07/27/19 01:40 2 MG Heparin Sodium (Porcine) (Heparin Sodium) 7,000 unit 1X ONCE 07/18/19 14:45 07/18/19 14:52 DC 07/18/19 14:45 7,000 UNIT Heparin Sodium/ Sodium Chloride 500 ml @ As Directed STK-MED ONCE 07/18/19 15:11 07/18/19 15:11 DC Heparin Sodium/ Sodium Chloride (HEPARIN for ARTERIAL LINE FLUSH) 1,000 unit 1X ONCE 07/18/19 14:45 07/18/19 14:52 DC 07/18/19 14:45 1,000 UNIT Info (Anti-Coagulation Monitoring By Pharmacy) 1 each PRN DAILY PRN 07/18/19 08:00 07/20/19 14:42 1 EACH Info (Tpn Per Pharmacy) 1 each PRN DAILY PRN 07/22/19 08:45 Cancel Insulin Human Lispro (HumaLOG) 0-6 UNITS Q6HRS 07/17/19 12:00 07/23/19 10:06 DC Iodixanol (Visipaque 320) 100 ml 1X ONCE 07/18/19 14:45 07/18/19 14:52 DC 07/18/19 14:45 104 ML Lansoprazole (Prevacid) 30 mg DAILY 07/18/19 09:00 07/27/19 11:55 DC 07/27/19 08:36 30 MG Lidocaine HCl (Lidocaine 1% 20ml Vial) 20 ml 1X ONCE 07/18/19 14:45 07/18/19 14:52 DC 07/18/19 14:45 10 ML Lidocaine HCl (Lidocaine HCl 2% Abboject) 80 mg 1X ONCE 07/20/19 10:00 07/20/19 10:03 DC 07/20/19 10:11 80 MG Lidocaine HCl (Xylocaine-Mpf 1% 2ml Vial) 2 ml STK-MED ONCE 07/18/19 13:05 07/18/19 13:05 DC Lidocaine HCl/ Dextrose 500 ml @ 0 mls/hr CONT PRN 07/20/19 10:00 07/21/19 15:07 DC 07/20/19 10:15 15 MLS/HR Linezolid/Dextrose 300 ml @ 300 mls/hr Q12HR 07/18/19 09:00 07/20/19 08:25 DC 07/19/19 21:29 300 MLS/HR Magnesium Hydroxide (Milk Of Magnesia) 2,400 mg PRN DAILY PRN 07/17/19 10:30 Magnesium Sulfate 50 ml @ 25 mls/hr 1X ONCE 07/26/19 09:45 07/26/19 11:44 DC 07/26/19 14:12 25 MLS/HR Magnesium Sulfate/ Dextrose 100 ml @ 100 mls/hr 1X ONCE 07/20/19 09:45 07/20/19 10:44 DC 07/20/19 11:43 100 MLS/HR Metolazone (Zaroxolyn) 2.5 mg QODAY 07/19/19 09:00 07/18/19 10:36 DC Metoprolol Succinate (Toprol Xl) 25 mg DAILY 07/28/19 09:00 07/28/19 07:52 25 MG Metoprolol Tartrate (Lopressor) 12.5 mg Q12HR 07/23/19 21:00 07/27/19 11:55 DC 07/27/19 08:38 12.5 MG Midazolam HCl 100 ml @ 0 mls/hr CONT PRN 07/17/19 07:15 07/25/19 18:27 DC 07/22/19 23:41 5 MLS/HR Milrinone Lactate/ Dextrose 100 ml @ 0 mls/hr CONT PRN 07/18/19 07:15 07/23/19 10:03 DC 07/20/19 02:37 4.2 MLS/HR Morphine Sulfate 30 ml @ 0 mls/hr CONT PRN PRN 07/18/19 12:45 07/25/19 18:27 DC 07/25/19 02:46 2 MLS/HR Morphine Sulfate (Morphine Sulfate) 4 mg PRN Q1HR PRN 07/17/19 11:15 07/27/19 11:55 DC 07/18/19 13:53 4 MG Nitroglycerin (Nitrostat) 0.4 mg 1X ONCE 07/17/19 04:30 07/17/19 04:43 DC 07/17/19 04:29 0.4 MG Nitroglycerin/ Dextrose 250 ml @ 1.5 mls/hr CONT PRN 07/24/19 08:00 07/27/19 11:55 DC 07/24/19 08:05 1.5 MLS/HR Norepinephrine Bitartrate 32 mg/ Dextrose 282 ml @ 0 mls/hr CONT PRN 07/18/19 11:15 07/23/19 10:05 DC 07/19/19 10:39 9 MLS/HR Norepinephrine Bitartrate 8 mg/ Dextrose 258 ml @ 0 mls/hr CONT PRN 07/17/19 06:30 07/18/19 13:40 DC 07/17/19 21:52 11 MLS/HR Ondansetron HCl (Zofran) 4 mg PRN Q8HRS PRN 07/17/19 06:00 07/18/19 05:59 DC Oxycodone HCl (Roxicodone) 15 mg PRN BID PRN 07/27/19 12:00 07/27/19 20:53 15 MG Pantoprazole Sodium (Protonix) 40 mg DAILYAC 07/28/19 07:30 07/28/19 07:52 40 MG Piperacillin Sod/ Tazobactam Sod 2.25 gm/Sodium Chloride 50 ml @ 100 mls/hr Q6HRS 07/17/19 18:00 07/22/19 08:47 DC 07/22/19 05:46 100 MLS/HR Piperacillin Sod/ Tazobactam Sod 3.375 gm/Sodium Chloride 50 ml @ 100 mls/hr Q8HRS 07/25/19 14:00 07/26/19 10:16 DC 07/26/19 05:33 100 MLS/HR Piperacillin Sod/ Tazobactam Sod 4.5 gm/Sodium Chloride 100 ml @ 200 mls/hr 1X ONCE 07/17/19 06:00 07/17/19 06:29 DC 07/17/19 11:14 200 MLS/HR Potassium Bicarbonate (Potassium Effervescent Tablet) 40 meq 1X ONCE 07/24/19 12:00 07/24/19 12:01 DC 07/24/19 11:54 40 MEQ Potassium Chloride/Water 100 ml @ 50 mls/hr Q2H 07/27/19 09:00 07/27/19 12:59 DC 07/27/19 12:23 50 MLS/HR Potassium Chloride (Klor-Con) 20 meq BID 07/27/19 21:00 07/28/19 07:52 20 MEQ Propofol 100 ml @ 0 mls/hr CONT PRN 07/17/19 05:15 07/25/19 18:27 DC 07/24/19 18:33 10.9 MLS/HR Quetiapine Fumarate (SEROquel) 25 mg PRN Q6HRS PRN 07/27/19 01:00 07/27/19 01:21 25 MG Rocuronium [place] (Zemuron) 50 mg 1X ONCE 07/17/19 04:45 07/17/19 04:46 DC 07/17/19 04:44 50 MG Sodium Chloride 90 meq/Potassium Chloride 50 meq/ Potassium Phosphate 13.6 mmol/Magnesium Sulfate 10 meq/ Calcium Gluconate 10 meq/ Multivitamins 10 ml/Chromium/ Copper/Manganese/ Seleni/Zn 1 ml/ Total Parenteral Nutrition/Amino Acids/Dextrose/ Fat Emulsion Intravenous 1,512 ml @ 63 mls/hr TPN CONT 07/21/19 22:00 07/22/19 09:05 DC Sodium Phosphate 15 mmol/Sodium Chloride 105 ml @ 105 mls/hr 1X ONCE 07/27/19 12:30 07/27/19 13:29 DC 07/27/19 15:02 105 MLS/HR Ticagrelor (Brilinta) 90 mg 1X ONCE 07/19/19 17:00 07/19/19 17:07 DC 07/19/19 17:28 90 MG Vancomycin HCl (Vanco Per Pharmacy) 1 each PRN DAILY PRN 07/17/19 06:00 07/17/19 10:41 DC 07/17/19 06:43 1 EACH Vancomycin HCl (Vancomycin Trough Level) 1 each 1X ONCE 07/19/19 06:00 07/19/19 06:01 Cancel Vancomycin HCl 1.75 gm/Sodium Chloride 500 ml @ 250 mls/hr Q24H 07/18/19 06:30 07/17/19 10:38 DC Vancomycin HCl 2 gm/Sodium Chloride 500 ml @ 250 mls/hr 1X ONCE 07/17/19 06:00 07/17/19 07:59 DC 07/17/19 06:15 250 MLS/HR Vecuronium [place] (Norcuron Bolus) 20 mg STK-MED ONCE 07/18/19 12:00 07/19/19 08:48 DC Labs: Lab Laboratory Tests Test 07/28/19 06:30 White Blood Count 5.5 x10^3/uL (4.0-11.0) Red Blood Count 4.58 x10^6/uL (4.30-5.70) Hemoglobin 13.6 g/dL (13.0-17.5) Hematocrit 40.1 % (39.0-53.0) Mean Corpuscular Volume 87 fL (79-100) Mean Corpuscular Hemoglobin 30 pg (25-35) Mean Corpuscular Hemoglobin Concent 34 g/dL (31-37) Red Cell Distribution Width 16.4 % (11.5-14.5) Platelet Count 246 x10^3/uL (140-400) Neutrophils (%) (Auto) 74 % (31-73) Lymphocytes (%) (Auto) 14 % (24-48) Monocytes (%) (Auto) 9 % (0-9) Eosinophils (%) (Auto) 4 % (0-3) Basophils (%) (Auto) 1 % (0-3) Neutrophils # (Auto) 4.1 x10^3/uL (1.8-7.7) Lymphocytes # (Auto) 0.7 x10^3/uL (1.0-4.8) Monocytes # (Auto) 0.5 x10^3/uL (0.0-1.1) Eosinophils # (Auto) 0.2 x10^3/uL (0.0-0.7) Basophils # (Auto) 0.0 x10^3/uL (0.0-0.2) Sodium Level 139 mmol/L (136-145) Potassium Level 3.4 mmol/L (3.5-5.1) Chloride Level 102 mmol/L (98-107) Carbon Dioxide Level 28 mmol/L (21-32) Anion Gap 9 (6-14) Blood Urea Nitrogen 31 mg/dL (8-26) Creatinine 1.3 mg/dL (0.7-1.3) Estimated GFR (Cockcroft-Gault) 54.1 Glucose Level 96 mg/dL (70-99) Calcium Level 8.3 mg/dL (8.5-10.1) Phosphorus Level 2.9 mg/dL (2.6-4.7) Magnesium Level 2.2 mg/dL (1.8-2.4) Objective: Assessment: 1. Sepsis. 2. Leukocytosis. 3. Lactic acidosis. 4. Acute hypoxic respiratory failure, status post intubation. Bilateral pulmonary infiltrates 5. Congestive heart failure. s/p VT arrest 07/17 s/p PCI with stent placement 6. Cardiomyopathy. 7. DONTAE on Chronic kidney disease. 8. Gastroesophageal reflux disease. 9. On amiodarone. 10. COVID neg Plan: Plan of Care Monitor off antibiotics Patient completed an empiric antibiotic treatment Cultures neg Maintain aspiration precautions Supportive care Discussed with nursing staff MARGRET DORSEY MD July 28, 2019 09:56
--- NOTE | 2019-07-28 10:29 | PDOC ---
PULMONARY PROGRESS NOTES Subjective Awake and alert following commands extubated 07/24 Vitals Vital Signs Date Time Temp Pulse Resp B/P (MAP) Pulse Ox O2 Delivery O2 Flow Rate FiO2 07/28/19 10:22 97.6 67 16 115/64 (81) 94 Room Air 97.6 07/28/19 08:00 2.0 General: Alert, No acute distress Lungs: Other (decrease bs) Cardiovascular: S1, S2 Abdomen: Soft, Non-tender Extremities: Other (BLE +1 edema ) Skin: Warm Labs Laboratory Tests Test 07/26/19 14:40 07/26/19 19:00 07/26/19 23:47 07/27/19 06:52 Potassium Level 3.6 mmol/L (3.5-5.1) 3.2 mmol/L (3.5-5.1) 3.2 mmol/L (3.5-5.1) Glucose (Fingerstick) 121 mg/dL (70-99) Sodium Level 138 mmol/L (136-145) Chloride Level 100 mmol/L (98-107) Carbon Dioxide Level 29 mmol/L (21-32) Anion Gap 9 (6-14) Blood Urea Nitrogen 28 mg/dL (8-26) Creatinine 1.2 mg/dL (0.7-1.3) Estimated GFR (Cockcroft-Gault) 59.3 Glucose Level 108 mg/dL (70-99) Calcium Level 8.2 mg/dL (8.5-10.1) Phosphorus Level 2.0 mg/dL (2.6-4.7) Magnesium Level 2.0 mg/dL (1.8-2.4) Test 07/28/19 06:30 White Blood Count 5.5 x10^3/uL (4.0-11.0) Red Blood Count 4.58 x10^6/uL (4.30-5.70) Hemoglobin 13.6 g/dL (13.0-17.5) Hematocrit 40.1 % (39.0-53.0) Mean Corpuscular Volume 87 fL (79-100) Mean Corpuscular Hemoglobin 30 pg (25-35) Mean Corpuscular Hemoglobin Concent 34 g/dL (31-37) Red Cell Distribution Width 16.4 % (11.5-14.5) Platelet Count 246 x10^3/uL (140-400) Neutrophils (%) (Auto) 74 % (31-73) Lymphocytes (%) (Auto) 14 % (24-48) Monocytes (%) (Auto) 9 % (0-9) Eosinophils (%) (Auto) 4 % (0-3) Basophils (%) (Auto) 1 % (0-3) Neutrophils # (Auto) 4.1 x10^3/uL (1.8-7.7) Lymphocytes # (Auto) 0.7 x10^3/uL (1.0-4.8) Monocytes # (Auto) 0.5 x10^3/uL (0.0-1.1) Eosinophils # (Auto) 0.2 x10^3/uL (0.0-0.7) Basophils # (Auto) 0.0 x10^3/uL (0.0-0.2) Sodium Level 139 mmol/L (136-145) Potassium Level 3.4 mmol/L (3.5-5.1) Chloride Level 102 mmol/L (98-107) Carbon Dioxide Level 28 mmol/L (21-32) Anion Gap 9 (6-14) Blood Urea Nitrogen 31 mg/dL (8-26) Creatinine 1.3 mg/dL (0.7-1.3) Estimated GFR (Cockcroft-Gault) 54.1 Glucose Level 96 mg/dL (70-99) Calcium Level 8.3 mg/dL (8.5-10.1) Phosphorus Level 2.9 mg/dL (2.6-4.7) Magnesium Level 2.2 mg/dL (1.8-2.4) Laboratory Tests Test 07/28/19 06:30 White Blood Count 5.5 x10^3/uL (4.0-11.0) Red Blood Count 4.58 x10^6/uL (4.30-5.70) Hemoglobin 13.6 g/dL (13.0-17.5) Hematocrit 40.1 % (39.0-53.0) Mean Corpuscular Volume 87 fL (79-100) Mean Corpuscular Hemoglobin 30 pg (25-35) Mean Corpuscular Hemoglobin Concent 34 g/dL (31-37) Red Cell Distribution Width 16.4 % (11.5-14.5) Platelet Count 246 x10^3/uL (140-400) Neutrophils (%) (Auto) 74 % (31-73) Lymphocytes (%) (Auto) 14 % (24-48) Monocytes (%) (Auto) 9 % (0-9) Eosinophils (%) (Auto) 4 % (0-3) Basophils (%) (Auto) 1 % (0-3) Neutrophils # (Auto) 4.1 x10^3/uL (1.8-7.7) Lymphocytes # (Auto) 0.7 x10^3/uL (1.0-4.8) Monocytes # (Auto) 0.5 x10^3/uL (0.0-1.1) Eosinophils # (Auto) 0.2 x10^3/uL (0.0-0.7) Basophils # (Auto) 0.0 x10^3/uL (0.0-0.2) Sodium Level 139 mmol/L (136-145) Potassium Level 3.4 mmol/L (3.5-5.1) Chloride Level 102 mmol/L (98-107) Carbon Dioxide Level 28 mmol/L (21-32) Anion Gap 9 (6-14) Blood Urea Nitrogen 31 mg/dL (8-26) Creatinine 1.3 mg/dL (0.7-1.3) Estimated GFR (Cockcroft-Gault) 54.1 Glucose Level 96 mg/dL (70-99) Calcium Level 8.3 mg/dL (8.5-10.1) Phosphorus Level 2.9 mg/dL (2.6-4.7) Magnesium Level 2.2 mg/dL (1.8-2.4) Medications Active Scripts Medications Dose Route/Sig Max Daily Dose Days Date Category Toprol XL (Metoprolol Succinate) 50 Mg Tab.er.24h 50 Mg PO DAILY 06/20/19 Rx Metolazone 2.5 Mg Tablet 2.5 Mg PO QODAY 06/20/19 Rx Furosemide 40 Mg Tablet 40 Mg PO [id number] 06/20/19 Rx Klor-Con M20 (Potassium Chloride) 20 Meq Tab.er.prt 20 Meq PO BIDWMEALS 06/20/19 Rx Amiodarone Hcl 200 Mg Tablet 200 Mg PO DAILY 06/20/19 Rx Eliquis (Apixaban) 5 Mg Tablet 5 Mg PO BID 06/20/19 Rx Acetaminophen 325 Mg Tablet 325 Mg PO Q6HRS 06/13/19 Reported Dicyclomine Hcl 10 Mg Capsule 1 Cap PO PRN TID PRN 05/17/19 Reported Nexium Capsule (Esomeprazole Magnesium) 40 Mg Capsule.dr 40 Mg PO DAILYAC 05/17/19 Reported Oxycodone Hcl Immed.release (Oxycodone Hcl) 15 Mg Tablet 15 Mg PO PRN Q12HR PRN 05/17/19 Reported Alprazolam 1 Mg Tablet 1 Tab PO BID 02/05/17 Reported Comments EF from 07/20/2019 <Conclusion> Left ventricle systolic function is mildly impaired. The Ejection Fraction is 40-45%. Septal motion consistent with conduction abnormality. Mild global hypokinesis. Technically difficult study. Limited study for EF only. cxr 07/25 basilar atelectasis Impression . IMPRESSION: 1. Acute hypoxemic hypercapnic respiratory failure. extubated 07/24 2. Bilateral pulmonary infiltrates, suspect combination of congestive heart failure and pneumonia. 3. Sepsis. 4. SARS-CoV 2, negative 5. Cardiomyopathy, ejection fraction of 15%., now 40% 6. Chronic atrial fibrillation. 7. DONTAE/Chronic kidney disease. 8. Acute on chronic systolic heart failure. 9. Hypotension, RESOLVED 10. Mild elevation in troponin. 11. Paroxysmal atrial fibrillation with recent cardioversion. 12. Status post CODE BLUE secondary to V. tach/coronary artery disease see below CArdiac CAth 07/18/2019 Conclusion 1. Normal biventricular filling pressures. 2. Mild pulmonary HTN 3. Normal cardiac output at 5.1 L/min 4. One vessel coronary disease. 5. Successful PCI of the RCA as described above 6. Patient had one episode of SVT with hypotension requiring synchronized cardioversion to SR. Plan . 1. extubated 07/24. on canula 2. bronchodilators/ CXR reviewed 3. Follow cardiology recs and lasix 4. off ABX Zosyn per ID 5. Follow nephrology recs 6. D/W RN and RT 7. Optimize BP 8. PT consult 9. speech f/u, eating PO 10. hemoptysis better, off burlinta and eliquis CODE: FULL CHRISTY WEBER MD July 28, 2019 10:29
--- NOTE | 2019-07-28 11:01 | PDOC ---
Renal-Progress Notes Subjective Notes Notes NO NEW COMPLAINTS History of Present Illness Hx of present illness STABLE Vitals Vitals Vital Signs Date Time Temp Pulse Resp B/P (MAP) Pulse Ox O2 Delivery O2 Flow Rate FiO2 07/28/19 10:22 97.6 67 16 115/64 (81) 94 Room Air 97.6 07/28/19 08:00 2.0 Weight Weight [ ] I.O. Intake and Output Intake and Output 07/28/19 07:00 Intake Total 1580 ml Output Total 3450 ml Balance -1870 ml Intake Oral 680 ml Tube Feeding 900 ml Output Urine Total 3450 ml # Bowel Movements 2 Labs Labs Laboratory Tests Test 07/28/19 06:30 White Blood Count 5.5 x10^3/uL (4.0-11.0) Red Blood Count 4.58 x10^6/uL (4.30-5.70) Hemoglobin 13.6 g/dL (13.0-17.5) Hematocrit 40.1 % (39.0-53.0) Mean Corpuscular Volume 87 fL (79-100) Mean Corpuscular Hemoglobin 30 pg (25-35) Mean Corpuscular Hemoglobin Concent 34 g/dL (31-37) Red Cell Distribution Width 16.4 % (11.5-14.5) Platelet Count 246 x10^3/uL (140-400) Neutrophils (%) (Auto) 74 % (31-73) Lymphocytes (%) (Auto) 14 % (24-48) Monocytes (%) (Auto) 9 % (0-9) Eosinophils (%) (Auto) 4 % (0-3) Basophils (%) (Auto) 1 % (0-3) Neutrophils # (Auto) 4.1 x10^3/uL (1.8-7.7) Lymphocytes # (Auto) 0.7 x10^3/uL (1.0-4.8) Monocytes # (Auto) 0.5 x10^3/uL (0.0-1.1) Eosinophils # (Auto) 0.2 x10^3/uL (0.0-0.7) Basophils # (Auto) 0.0 x10^3/uL (0.0-0.2) Sodium Level 139 mmol/L (136-145) Potassium Level 3.4 mmol/L (3.5-5.1) Chloride Level 102 mmol/L (98-107) Carbon Dioxide Level 28 mmol/L (21-32) Anion Gap 9 (6-14) Blood Urea Nitrogen 31 mg/dL (8-26) Creatinine 1.3 mg/dL (0.7-1.3) Estimated GFR (Cockcroft-Gault) 54.1 Glucose Level 96 mg/dL (70-99) Calcium Level 8.3 mg/dL (8.5-10.1) Phosphorus Level 2.9 mg/dL (2.6-4.7) Magnesium Level 2.2 mg/dL (1.8-2.4) Micro Micro Microbiology 07/17/19 Urine Culture - Final, Complete 07/17/19 Urine Culture Result 1 (BOYD) - Final, Complete 07/17/19 Blood Culture - Final, Complete NO GROWTH AFTER 5 DAYS 07/17/19 Nose/Throat Culture - Final, Complete 07/17/19 - Final, Complete Review of Systems Constitutional: yes: weakness, alert, oriented Ears/Nose/Throat: Yes: no symptom reported Eyes: Yes: no symptom reported Pulmonary: Yes dyspnea Cardiovascular: Yes no symptom reported, Yes edema Gastrointestional: Yes: constipation Genitourinary: Yes: no symptom reported Musculoskeletal: Yes: muscle stiffness Skin: Yes no symptom reported Psychiatric/Neurological: Yes: no symptom reported Endocrine: Yes: no symptom reported Physical Exam General Appearance: no apparent distress Skin: warm, edema Respiratory: decreased breath sounds Heart: S1S2 Abdomen: soft, bowel sounds present Genitourinary: bladder flat Extremities: pulses present Neurology: alert, oriented, follow commands, confused Musculoskeletal: Osteoarthritis Assessment Assessment IMP GROSS HEMATURIA-BETTER [id number] WITH CR DOWN TO 1.2 FROM 3.3 ACUTE HYPOXEMIC HYPERCARBIC RESP FAILURE-S/P EXTUBATION ACUTE [id number] CHRONIC LE EDEMA AFIB-S/P RECENT CARDIOVERSION HYPOTENSION-RESOLVED HTN-CURRENTLY S/P CODE BLUE HYPOMAGNESEMIA-CORRECTED HYPOKALEMIA LOW PHOS-CORRECTED PLAN REPLACE K, MAG AND PO4 NEEDED MAY NEED CBI BUT URINE IS MORE CLEAR AGREE WITH HOLDING ANTICOAGULANTS PO LASIX TO CONTINUE WILL FOLLOW KERA SABILLON MD July 28, 2019 11:01
--- NOTE | 2019-07-28 11:11 | PDOC ---
PROGRESS NOTES Subjective Subjective feels better. no gross hematuria. potassium low 3.4. lab reviewed. Objective Objective Vital Signs Date Time Temp Pulse Resp B/P (MAP) Pulse Ox O2 Delivery O2 Flow Rate FiO2 07/28/19 10:22 97.6 67 16 115/64 (81) 94 Room Air 97.6 07/28/19 08:00 2.0 Intake and Output 07/28/19 07:00 Intake Total 1580 ml Output Total 3450 ml Balance -1870 ml Intake Oral 680 ml Tube Feeding 900 ml Output Urine Total 3450 ml # Bowel Movements 2 Physical Exam Abdomen: Soft Heart: Regular rate, Normal S1, Normal S2 Extremities: Other (trace edema legs) General: Alert HEENT: Atraumatic Lungs: Clear to auscultation Neuro: Normal speech Psych/Mental Status: Mental status NL Skin: No rashes Assessment Assessment Problems Acute pulmonary edema. compensated 2. Acute on chronic systolic congestive heart failure.compensated 3. Severe cardiomyopathy with left ventricular ejection fraction improved to 40-45% 07/19 per echo 4. Acute hypoxic and hypercarbic respiratory failure, improved 5. Paroxysmal atrial fibrillation, currently in NSR 6. sepsis with shock, shock resolved 7. chronic kidney disease stage 3. 8. Gastroesophageal reflux disease. 9. bilateral lung infiltrates. suspect pneumonia treated hypokalemia hypomagnesemia treated VT cardiac arrest 07/17 and again 07/19 PCI RCA 07/17 hypertension gross hematuira resolved hemoptysis resolved critical illness myopathy Medical Problems: (1) Acute exacerbation of CHF (congestive heart failure) Status: Acute (2) Acute on chronic renal insufficiency Status: Acute (3) Elevated troponin I level Status: Acute (4) Septic shock Status: Acute (5) Suspected COVID-19 virus infection Status: Acute Plan Plan of Care replete kcl PT and OT d/c jade tomorrow if no gross hematuria off eliquis and brillinta continue aspirin MARH screen lab tomorrow Comment Review of Relevant I have reviewed the following items juan (where applicable) has been applied. Labs Laboratory Tests Test 07/26/19 14:40 07/26/19 19:00 07/26/19 23:47 07/27/19 06:52 Potassium Level 3.6 mmol/L (3.5-5.1) 3.2 mmol/L (3.5-5.1) 3.2 mmol/L (3.5-5.1) Glucose (Fingerstick) 121 mg/dL (70-99) Sodium Level 138 mmol/L (136-145) Chloride Level 100 mmol/L (98-107) Carbon Dioxide Level 29 mmol/L (21-32) Anion Gap 9 (6-14) Blood Urea Nitrogen 28 mg/dL (8-26) Creatinine 1.2 mg/dL (0.7-1.3) Estimated GFR (Cockcroft-Gault) 59.3 Glucose Level 108 mg/dL (70-99) Calcium Level 8.2 mg/dL (8.5-10.1) Phosphorus Level 2.0 mg/dL (2.6-4.7) Magnesium Level 2.0 mg/dL (1.8-2.4) Test 07/28/19 06:30 White Blood Count 5.5 x10^3/uL (4.0-11.0) Red Blood Count 4.58 x10^6/uL (4.30-5.70) Hemoglobin 13.6 g/dL (13.0-17.5) Hematocrit 40.1 % (39.0-53.0) Mean Corpuscular Volume 87 fL (79-100) Mean Corpuscular Hemoglobin 30 pg (25-35) Mean Corpuscular Hemoglobin Concent 34 g/dL (31-37) Red Cell Distribution Width 16.4 % (11.5-14.5) Platelet Count 246 x10^3/uL (140-400) Neutrophils (%) (Auto) 74 % (31-73) Lymphocytes (%) (Auto) 14 % (24-48) Monocytes (%) (Auto) 9 % (0-9) Eosinophils (%) (Auto) 4 % (0-3) Basophils (%) (Auto) 1 % (0-3) Neutrophils # (Auto) 4.1 x10^3/uL (1.8-7.7) Lymphocytes # (Auto) 0.7 x10^3/uL (1.0-4.8) Monocytes # (Auto) 0.5 x10^3/uL (0.0-1.1) Eosinophils # (Auto) 0.2 x10^3/uL (0.0-0.7) Basophils # (Auto) 0.0 x10^3/uL (0.0-0.2) Sodium Level 139 mmol/L (136-145) Potassium Level 3.4 mmol/L (3.5-5.1) Chloride Level 102 mmol/L (98-107) Carbon Dioxide Level 28 mmol/L (21-32) Anion Gap 9 (6-14) Blood Urea Nitrogen 31 mg/dL (8-26) Creatinine 1.3 mg/dL (0.7-1.3) Estimated GFR (Cockcroft-Gault) 54.1 Glucose Level 96 mg/dL (70-99) Calcium Level 8.3 mg/dL (8.5-10.1) Phosphorus Level 2.9 mg/dL (2.6-4.7) Magnesium Level 2.2 mg/dL (1.8-2.4) Laboratory Tests Test 07/28/19 06:30 White Blood Count 5.5 x10^3/uL (4.0-11.0) Red Blood Count 4.58 x10^6/uL (4.30-5.70) Hemoglobin 13.6 g/dL (13.0-17.5) Hematocrit 40.1 % (39.0-53.0) Mean Corpuscular Volume 87 fL (79-100) Mean Corpuscular Hemoglobin 30 pg (25-35) Mean Corpuscular Hemoglobin Concent 34 g/dL (31-37) Red Cell Distribution Width 16.4 % (11.5-14.5) Platelet Count 246 x10^3/uL (140-400) Neutrophils (%) (Auto) 74 % (31-73) Lymphocytes (%) (Auto) 14 % (24-48) Monocytes (%) (Auto) 9 % (0-9) Eosinophils (%) (Auto) 4 % (0-3) Basophils (%) (Auto) 1 % (0-3) Neutrophils # (Auto) 4.1 x10^3/uL (1.8-7.7) Lymphocytes # (Auto) 0.7 x10^3/uL (1.0-4.8) Monocytes # (Auto) 0.5 x10^3/uL (0.0-1.1) Eosinophils # (Auto) 0.2 x10^3/uL (0.0-0.7) Basophils # (Auto) 0.0 x10^3/uL (0.0-0.2) Sodium Level 139 mmol/L (136-145) Potassium Level 3.4 mmol/L (3.5-5.1) Chloride Level 102 mmol/L (98-107) Carbon Dioxide Level 28 mmol/L (21-32) Anion Gap 9 (6-14) Blood Urea Nitrogen 31 mg/dL (8-26) Creatinine 1.3 mg/dL (0.7-1.3) Estimated GFR (Cockcroft-Gault) 54.1 Glucose Level 96 mg/dL (70-99) Calcium Level 8.3 mg/dL (8.5-10.1) Phosphorus Level 2.9 mg/dL (2.6-4.7) Magnesium Level 2.2 mg/dL (1.8-2.4) Microbiology 07/17/19 Urine Culture - Final, Complete 07/17/19 Urine Culture Result 1 (BOYD) - Final, Complete 07/17/19 Blood Culture - Final, Complete NO GROWTH AFTER 5 DAYS 07/17/19 Nose/Throat Culture - Final, Complete 07/17/19 - Final, Complete Medications Current Medications Nitroglycerin (Nitrostat) 0.4 mg STK-MED ONCE SL ; Start 07/17/19 at 04:28; Stop 07/17/19 at 04:28; Status DC Nitroglycerin (Nitrostat) 0.4 mg 1X ONCE SL Last administered on 07/17/19at 04:29; Start 07/17/19 at 04:30; Stop 07/17/19 at 04:43; Status DC Nitroglycerin/ Dextrose 250 ml @ 0 mls/hr 1X ONCE IV Last administered on 07/17/19at 04:47; Start 07/17/19 at 04:45; Stop 07/17/19 at 04:46; Status DC Rocuronium [place] (Zemuron) 50 mg 1X ONCE IV Last administered on 07/17/19at 04:44; Start 07/17/19 at 04:45; Stop 07/17/19 at 04:46; Status DC Etomidate (Amidate) 20 mg 1X ONCE IV Last administered on 07/17/19at 04:43; Start 07/17/19 at 04:45; Stop 07/17/19 at 04:46; Status DC Propofol 100 ml @ 0 mls/hr CONT PRN IV SEE PROTOCOL Last administered on 07/24/19at 18:33; Start 07/17/19 at 05:15; Stop 07/25/19 at 18:27; Status DC Aspirin (Aspirin Rectal Supp) 300 mg 1X ONCE IN Last administered on 07/17/19at 06:01; Start 07/17/19 at 05:45; Stop 07/17/19 at 05:46; Status DC Bumetanide (Bumex) 1 mg 1X ONCE IV Last administered on 07/17/19at 06:00; Start 07/17/19 at 06:00; Stop 07/17/19 at 06:01; Status DC Piperacillin Sod/ Tazobactam Sod 4.5 gm/Sodium Chloride 100 ml @ 200 mls/hr 1X ONCE IV Last administered on 07/17/19at 11:14; Start 07/17/19 at 06:00; Stop 07/17/19 at 06:29; Status DC Vancomycin HCl (Vanco Per Pharmacy) 1 each PRN DAILY PRN MC SEE COMMENTS Last administered on 07/17/19at 06:43; Start 07/17/19 at 06:00; Stop 07/17/19 at 10:41; Status DC Vancomycin HCl 2 gm/Sodium Chloride 500 ml @ 250 mls/hr 1X ONCE IV Last administered on 07/17/19at 06:15; Start 07/17/19 at 06:00; Stop 07/17/19 at 07:59; Status DC Ondansetron HCl (Zofran) 4 mg PRN Q8HRS PRN IV NAUSEA/VOMITING; Start 07/17/19 at 06:00; Stop 07/18/19 at 05:59; Status DC Norepinephrine Bitartrate 8 mg/ Dextrose 258 ml @ 0 mls/hr CONT PRN IV SEE I/O RECORD Last administered on 07/17/19at 21:52; Start 07/17/19 at 06:30; Stop 07/18/19 at 13:40; Status DC Vancomycin HCl 1.75 gm/Sodium Chloride 500 ml @ 250 mls/hr Q24H IV ; Start 07/18/19 at 06:30; Stop 07/17/19 at 10:38; Status DC Vancomycin HCl (Vancomycin Trough Level) 1 each 1X ONCE MC ; Start 07/19/19 at 06:00; Stop 07/19/19 at 06:01; Status Cancel Morphine Sulfate (Morphine Sulfate) 6 mg 1X ONCE IV Last administered on 07/17/19at 07:08; Start 07/17/19 at 07:15; Stop 07/17/19 at 07:16; Status DC Midazolam HCl 100 ml @ 0 mls/hr CONT PRN IV SEE PROTOCOL Last administered on 07/22/19at 23:41; Start 07/17/19 at 07:15; Stop 07/25/19 at 18:27; Status DC Morphine Sulfate (Morphine Sulfate) 4 mg PRN Q1HR PRN IV SEE COMMENTS.; Start 07/17/19 at 08:00; Stop 07/17/19 at 10:38; Status DC Heparin Sodium (Porcine) (Heparin Sodium) 5,000 unit Q12HR SQ ; Start 07/17/19 at 21:00; Stop 07/17/19 at 10:38; Status DC Amiodarone HCl (Cordarone) 200 mg DAILY PO Last administered on 07/21/19at 09:04; Start 07/18/19 at 09:00; Stop 07/21/19 at 15:07; Status DC Metolazone (Zaroxolyn) 2.5 mg QODAY PO ; Start 07/19/19 at 09:00; Stop 07/18/19 at 10:36; Status DC Potassium Chloride (Klor-Con) 20 meq BIDWMEALS PO Last administered on 07/17/19at 16:34; Start 07/17/19 at 17:00; Stop 07/18/19 at 10:36; Status DC Furosemide (Lasix) 40 mg [id number] IVP Last administered on 07/18/19at 08:03; Start 07/17/19 at 14:00; Stop 07/20/19 at 11:02; Status DC Morphine Sulfate (Morphine Sulfate) 2 mg PRN Q4HRS PRN IV SEE COMMENTS.; Start 07/17/19 at 10:30; Status Cancel Apixaban (Eliquis) 5 mg BID FT Last administered on 07/23/19at 08:17; Start 07/17/19 at 21:00; Stop 07/23/19 at 10:05; Status DC Insulin Human Lispro (HumaLOG) 0-6 UNITS Q6HRS SQ ; Start 07/17/19 at 12:00; Stop 07/23/19 at 10:06; Status DC Lansoprazole (Prevacid) 30 mg DAILY FT Last administered on 07/27/19at 08:36; Start 07/18/19 at 09:00; Stop 07/27/19 at 11:55; Status DC Acetaminophen (Tylenol) 650 mg PRN Q6HRS PRN FT MILD PAIN / TEMP > 100.3'F; Start 07/17/19 at 10:30; Stop 07/27/19 at 11:55; Status DC Alprazolam (Xanax) 1 mg BID FT Last administered on 07/28/19at 07:51; Start 07/17/19 at 21:00 Magnesium Hydroxide (Milk Of Magnesia) 2,400 mg PRN DAILY PRN FT CONSTIPATION; Start 07/17/19 at 10:30 Dexmedetomidine HCl 400 mcg/ Sodium Chloride 100 ml @ 0 mls/hr CONT PRN IV PER PROTOCOL Last administered on 07/20/19at 13:31; Start 07/17/19 at 11:00; Stop 07/25/19 at 18:27; Status DC Sodium Chloride 500 ml @ 500 mls/hr 1X PRN PRN IV SEE COMMENTS; Start 07/17/19 at 11:00; Stop 07/22/19 at 12:54; Status DC Atropine Sulfate (ATROPINE 0.5mg SYRINGE) 0.5 mg PRN Q5MIN PRN IV SEE COMMENTS; Start 07/17/19 at 11:00; Stop 07/25/19 at 18:27; Status DC Morphine Sulfate (Morphine Sulfate) 2 mg PRN Q1HR PRN IV SEE COMMENTS. Last administered on 07/17/19at 13:37; Start 07/17/19 at 11:15; Stop 07/27/19 at 11:55; Status DC Morphine Sulfate (Morphine Sulfate) 4 mg PRN Q1HR PRN IV SEE COMMENTS. Last administered on 07/18/19at 13:53; Start 07/17/19 at 11:15; Stop 07/27/19 at 11:55; Status DC Piperacillin Sod/ Tazobactam Sod 2.25 gm/Sodium Chloride 50 ml @ 100 mls/hr Q6 HRS IV Last administered on 07/22/19at 05:46; Start 07/17/19 at 18:00; Stop 07/22/19 at 08:47; Status DC Magnesium Sulfate 50 ml @ 25 mls/hr 1X ONCE IV Last administered on 07/18/19at 08:04; Start 07/18/19 at 07:15; Stop 07/18/19 at 09:14; Status DC Milrinone Lactate/ Dextrose 100 ml @ 0 mls/hr CONT PRN IV SEE I/O RECORD Last administered on 07/20/19at 02:37; Start 07/18/19 at 07:15; Stop 07/23/19 at 10:03; Status DC Linezolid/Dextrose 300 ml @ 300 mls/hr Q12HR IV Last administered on 07/19/19at 21:29; Start 07/18/19 at 09:00; Stop 07/20/19 at 08:25; Status DC Info (Anti-Coagulation Monitoring By Pharmacy) 1 each PRN DAILY PRN MC SEE COMMENTS Last administered on 07/20/19at 14:42; Start 07/18/19 at 08:00 Vecuronium [place] (Norcuron Bolus) 10 mg STK-MED ONCE IV ; Start 07/18/19 at 09:12; Stop 07/18/19 at 09:12; Status DC Potassium Chloride/Water 100 ml @ 100 mls/hr 1X ONCE IV Last administered on 07/18/19at 10:04; Start 07/18/19 at 09:45; Stop 07/18/19 at 10:44; Status DC Magnesium Sulfate 50 ml @ 25 mls/hr 1X ONCE IV Last administered on 07/18/19at 10:03; Start 07/18/19 at 09:45; Stop 07/18/19 at 11:44; Status DC Norepinephrine Bitartrate 32 mg/ Dextrose 282 ml @ 0 mls/hr CONT PRN IV SEE I/O RECORD Last administered on 07/19/19at 10:39; Start 07/18/19 at 11:15; Stop 07/23/19 at 10:05; Status DC Morphine Sulfate 30 ml @ 0 mls/hr CONT PRN PRN IV PER PROTOCOL Last administe red on 07/25/19at 02:46; Start 07/18/19 at 12:45; Stop 07/25/19 at 18:27; Status DC Lidocaine HCl (Xylocaine-Mpf 1% 2ml Vial) 2 ml STK-MED ONCE .ROUTE ; Start 07/18/19 at 13:05; Stop 07/18/19 at 13:05; Status DC Iodixanol (Visipaque 320) 100 ml STK-MED ONCE .ROUTE ; Start 07/18/19 at 13:05; Stop 07/18/19 at 13:06; Status DC Heparin Sodium/ Sodium Chloride 1,500 ml @ As Directed STK-MED ONCE .ROUTE ; Start 07/18/19 at 13:05; Stop 07/18/19 at 13:06; Status DC Vecuronium [place] (Norcuron Bolus) 10 mg STK-MED ONCE IV ; Start 07/18/19 at 13:49; Stop 07/18/19 at 13:49; Status DC Vecuronium [place] (Norcuron Bolus) 6 mg PRN Q4HRS PRN IV ANXIETY / AGITATION; Start 07/18/19 at 14:00; Stop 07/25/19 at 18:27; Status DC Epinephrine HCl 5 mg/Sodium Chloride 255 ml @ 32.926 mls/ hr CONT PRN IV SEE I/O RECORD; Start 07/18/19 at 14:00; Stop 07/24/19 at 11:06; Status DC Lidocaine HCl (Lidocaine 1% 20ml Vial) 20 ml STK-MED ONCE .ROUTE ; Start 07/18/19 at 14:11; Stop 07/18/19 at 14:11; Status DC Heparin Sodium (Porcine) (Heparin Sodium) 10,000 unit STK-MED ONCE .ROUTE ; Start 07/18/19 at 14:27; Stop 07/18/19 at 14:28; Status DC Heparin Sodium/ Sodium Chloride (HEPARIN for ARTERIAL LINE FLUSH) 1,000 unit 1X ONCE IART Last administered on 07/18/19at 14:45; Start 07/18/19 at 14:45; Stop 07/18/19 at 14:52; Status DC Heparin Sodium/ Sodium Chloride (HEPARIN for ARTERIAL LINE FLUSH) 1,000 unit 1X ONCE IART Last administered on 07/18/19at 14:45; Start 07/18/19 at 14:45; Stop 07/18/19 at 14:52; Status DC Iodixanol (Visipaque 320) 100 ml 1X ONCE IART Last administered on 07/18/19at 14:45; Start 07/18/19 at 14:45; Stop 07/18/19 at 14:52; Status DC Heparin Sodium (Porcine) (Heparin Sodium) 7,000 unit 1X ONCE IV Last administered on 07/18/19at 14:45; Start 07/18/19 at 14:45; Stop 07/18/19 at 14:52; Status DC Lidocaine HCl (Lidocaine 1% 20ml Vial) 20 ml 1X ONCE INJ Last administered on 07/18/19at 14:45; Start 07/18/19 at 14:45; Stop 07/18/19 at 14:52; Status DC Heparin Sodium/ Sodium Chloride 500 ml @ As Directed STK-MED ONCE .ROUTE ; Start 07/18/19 at 15:11; Stop 07/18/19 at 15:11; Status DC Ticagrelor (Brilinta) 180 mg 1X ONCE PO Last administered on 07/18/19at 16:08; Start 07/18/19 at 16:00; Stop 07/18/19 at 16:01; Status DC Digoxin (Lanoxin) 250 mcg 1X ONCE IV ; Start 07/19/19 at 06:15; Stop 07/19/19 at 06:16; Status Cancel Digoxin (Lanoxin) 250 mcg 1X ONCE IV Last administered on 07/19/19at 05:15; Start 07/19/19 at 05:15; Stop 07/19/19 at 06:11; Status DC Digoxin (Lanoxin) 250 mcg 1X ONCE IV Last administered on 07/19/19at 08:48; Start 07/19/19 at 09:00; Stop 07/19/19 at 09:01; Status DC Digoxin (Lanoxin) 250 mcg 1X ONCE IV Last administered on 07/19/19at 04:15; Start 07/19/19 at 04:10; Stop 07/19/19 at 06:15; Status DC Vecuronium [place] (Norcuron Bolus) 20 mg STK-MED ONCE IV ; Start 07/18/19 at 12:00; Stop 07/19/19 at 08:48; Status DC Potassium Chloride/Water 100 ml @ 100 mls/hr 1X ONCE IV Last administered on 07/19/19at 12:13; Start 07/19/19 at 11:45; Stop 07/19/19 at 12:44; Status DC Amiodarone HCl 150 mg/Dextrose 103 ml @ 618 mls/hr 1X ONCE IV Last administered on 07/19/19at 12:15; Start 07/19/19 at 12:00; Stop 07/19/19 at 12:09; Status DC Metoprolol Tartrate (Lopressor) 12.5 mg Q6HRS PO Last administered on 07/23/19at 05:54; Start 07/19/19 at 12:00; Stop 07/23/19 at 10:05; Status DC Amiodarone HCl (Cordarone) 300 mg STK-MED ONCE .ROUTE ; Start 07/18/19 at 16:08; Stop 07/19/19 at 16:08; Status DC Epinephrine HCl (EPINEPHrine SYRINGE) 4 mg STK-MED ONCE .ROUTE ; Start 07/18/19 at 16:08; Stop 07/19/19 at 16:08; Status DC Aspirin (Aspirin Chewable) 81 mg 1X ONCE PO Last administered on 07/19/19at 17:28; Start 07/19/19 at 17:00; Stop 07/19/19 at 17:06; Status DC Aspirin (Aspirin Chewable) 81 mg [id number] PO Last administered on 07/28/19at 07:52; Start 07/20/19 at 08:00 Ticagrelor (Brilinta) 90 mg BID PO Last administered on 07/25/19at 08:23; Start 07/20/19 at 09:00; Stop 07/25/19 at 14:13; Status DC Ticagrelor (Brilinta) 90 mg 1X ONCE PO Last administered on 07/19/19at 17:28; Start 07/19/19 at 17:00; Stop 07/19/19 at 17:07; Status DC Info (Tpn Per Pharmacy) 1 each PRN DAILY PRN MC SEE COMMENTS Last administered on 07/21/19at 11:58; Start 07/19/19 at 17:00; Stop 07/21/19 at 19:42; Status DC Magnesium Sulfate/ Dextrose 100 ml @ 100 mls/hr 1X ONCE IV Last administered on 07/20/19at 09:40; Start 07/20/19 at 09:45; Stop 07/20/19 at 10:44; Status DC Magnesium Sulfate/ Dextrose 100 ml @ 100 mls/hr 1X ONCE IV Last administered on 07/20/19at 11:43; Start 07/20/19 at 09:45; Stop 07/20/19 at 10:44; Status DC Potassium Chloride/Water 100 ml @ 100 mls/hr Q1H IV Last administered on 07/20/19at 15:45; Start 07/20/19 at 09:45; Stop 07/20/19 at 13:44; Status DC Amiodarone HCl 450 mg/Dextrose 259 ml @ 0 mls/hr CONT PRN IV SEE I/O RECORD; Start 07/20/19 at 10:00; Status Cancel Lidocaine HCl (Lidocaine HCl 2% Abboject) 80 mg 1X ONCE IV Last administered on 07/20/19at 10:11; Start 07/20/19 at 10:00; Stop 07/20/19 at 10:03; Status DC Lidocaine HCl/ Dextrose 500 ml @ 0 mls/hr CONT PRN IV SEE I/O RECORD Last ad ministered on 07/20/19at 10:15; Start 07/20/19 at 10:00; Stop 07/21/19 at 15:07; Status DC Furosemide (Lasix) 40 mg DAILY IVP Last administered on 07/22/19at 09:03; Start 07/21/19 at 09:00; Stop 07/22/19 at 12:54; Status DC Sodium Chloride 90 meq/Potassium Chloride 50 meq/ Potassium Phosphate 13.6 mmol/Magnesium Sulfate 10 meq/ Calcium Gluconate 10 meq/ Multivitamins 10 ml/Chromium/ Copper/Manganese/ Seleni/Zn 1 ml/ Total Parenteral Nutrition/Amino Acids/Dextrose/ Fat Emulsion Intravenous 1,512 ml @ 63 mls/hr TPN CONT IV Last administered on 07/20/19at 22:01; Start 07/20/19 at 22:00; Stop 07/21/19 at 21:59; Status DC Sodium Chloride 90 meq/Potassium Chloride 50 meq/ Potassium Phosphate 13.6 mmol/Magnesium Sulfate 10 meq/ Calcium Gluconate 10 meq/ Multivitamins 10 ml/Chromium/ Copper/Manganese/ Seleni/Zn 1 ml/ Total Parenteral Nutrition/Amino Acids/Dextrose/ Fat Emulsion Intravenous 1,512 ml @ 63 mls/hr TPN CONT IV ; Start 07/21/19 at 22:00; Stop 07/22/19 at 09:05; Status DC Potassium Chloride (Klor-Con) 40 meq 1X ONCE PO Last administered on 07/21/19at 15:38; Start 07/21/19 at 14:30; Stop 07/21/19 at 14:33; Status DC Amiodarone HCl (Cordarone) 400 mg DAILY PO Last administered on 07/28/19at 07:53; Start 07/22/19 at 09:00 Amiodarone HCl (Cordarone) 200 mg 1X ONCE PO Last administered on 07/21/19at 15:38; Start 07/21/19 at 15:15; Stop 07/21/19 at 15:16; Status DC Info (Tpn Per Pharmacy) 1 each PRN DAILY PRN MC SEE COMMENTS; Start 07/22/19 at 08:45; Status Cancel Piperacillin Sod/ Tazobactam Sod 3.375 gm/Sodium Chloride 50 ml @ 100 mls/hr Q6HRS IV Last administered on 07/25/19at 05:33; Start 07/22/19 at 12:00; Stop 07/25/19 at 10:10; Status DC Potassium Chloride (Klor-Con) 40 meq 1X ONCE PO Last administered on 07/22/19at 12:03; Start 07/22/19 at 11:45; Stop 07/22/19 at 11:47; Status DC Desmopressin Acetate (Ddavp) 4 mcg BID SQ Last administered on 07/23/19at 10:20; Start 07/22/19 at 14:00; Stop 07/23/19 at 09:01; Status DC Metoprolol Tartrate (Lopressor) 12.5 mg Q12HR PO Last administered on 07/27/19at 08:38; Start 07/23/19 at 21:00; Stop 07/27/19 at 11:55; Status DC Potassium Bicarbonate (Potassium Effervescent Tablet) 40 meq 1X ONCE PO Last administered on 07/23/19at 12:49; Start 07/23/19 at 10:15; Stop 07/23/19 at 10:16; Status DC Magnesium Sulfate 50 ml @ 25 mls/hr PRN DAILY PRN IV for Mag < 1.7 on am labs; Start 07/23/19 at 13:15 Potassium Chloride/Water 100 ml @ 50 mls/hr PRN Q6HRS PRN IV For K < 3.7 Last administered on 07/25/19at 06:28; Start 07/23/19 at 13:15; Stop 07/27/19 at 11:55; Status DC Potassium Chloride/Water 100 ml @ 50 mls/hr PRN Q2HR PRN IV total of 40mEq for K < 3.5 Last administered on 07/26/19at 06:15; Start 07/23/19 at 13:15; Stop 07/27/19 at 11:55; Status DC Amino Acids/ Glycerin/ Electrolytes 1,000 ml @ 50 mls/hr Q20H IV ; Start 07/23/19 at 13:15; Stop 07/23/19 at 17:04; Status DC Furosemide (Lasix) 40 mg [id number] IVP Last administered on 07/27/19at 09:59; Start 07/23/19 at 14:00; Stop 07/27/19 at 11:08; Status DC Dextrose 1,000 ml @ 75 mls/hr [id number] IV Last administered on 07/23/19at 17:09; Start 07/23/19 at 17:00; Stop 07/24/19 at 11:06; Status DC Nitroglycerin/ Dextrose 250 ml @ 1.5 mls/hr CONT PRN IV SEE I/O RECORD Last administered on 07/24/19at 08:05; Start 07/24/19 at 08:00; Stop 07/27/19 at 11:55; Status DC Potassium Chloride (Klor-Con) 40 meq 1X ONCE PO ; Start 07/24/19 at 11:00; Stop 07/24/19 at 11:04; Status DC Potassium Bicarbonate (Potassium Effervescent Tablet) 40 meq 1X ONCE PO Last administered on 07/24/19at 11:54; Start 07/24/19 at 12:00; Stop 07/24/19 at 12:01; Status DC Magnesium Sulfate 50 ml @ 25 mls/hr PRN DAILY PRN IV for Mag < 1.7 on am labs; Start 07/25/19 at 08:45; Stop 07/25/19 at 15:52; Status DC Magnesium Sulfate 50 ml @ 25 mls/hr 1X ONCE IV Last administered on 07/25/19at 10:05; Start 07/25/19 at 10:00; Stop 07/25/19 at 11:59; Status DC Piperacillin Sod/ Tazobactam Sod 3.375 gm/Sodium Chloride 50 ml @ 100 mls/hr Q8HRS IV Last administered on 07/26/19at 05:33; Start 07/25/19 at 14:00; Stop 07/26/19 at 10:16; Status DC Amlodipine Besylate (Norvasc) 2.5 mg DAILY FT Last administered on 07/26/19at 09:16; Start 07/25/19 at 11:00; Stop 07/26/19 at 10:16; Status DC Potassium Chloride/Water 100 ml @ 100 mls/hr Q1H IV Last administered on 07/25/19at 16:01; Start 07/25/19 at 15:00; Stop 07/25/19 at 16:59; Status DC Potassium Chloride/Water 100 ml @ 50 mls/hr 1X ONCE IV Last administered on 07/26/19at 09:53; Start 07/26/19 at 10:00; Stop 07/26/19 at 11:59; Status DC Potassium Chloride/Water 100 ml @ 50 mls/hr 1X ONCE IV Last administered on 07/26/19at 12:24; Start 07/26/19 at 12:00; Stop 07/26/19 at 13:59; Status DC Magnesium Sulfate 50 ml @ 25 mls/hr 1X ONCE IV Last administered on 07/26/19at 14:12; Start 07/26/19 at 09:45; Stop 07/26/19 at 11:44; Status DC Amlodipine Besylate (Norvasc) 5 mg DAILY FT Last administered on 07/28/19at 07:53; Start 07/27/19 at 09:00 Potassium Chloride/Water 100 ml @ 50 mls/hr Q2H IV Last administered on 07/27/19at 00:56; Start 07/26/19 at 21:00; Stop 07/27/19 at 00:59; Status DC Haloperidol Lactate (Haldol Inj) 2 mg 1X ONCE IM Last administered on 07/27/19at 01:40; Start 07/27/19 at 01:15; Stop 07/27/19 at 01:16; Status DC Quetiapine Fumarate (SEROquel) 25 mg PRN Q6HRS PRN PO AGITATION Last administered on 07/27/19at 01:21; Start 07/27/19 at 01:00 Alteplase, Recombinant (Cathflo For Central Catheter Clearance) 1 mg 1X ONCE INT CAT Last administered on 07/27/19at 08:43; Start 07/27/19 at 08:00; Stop 07/27/19 at 08:15; Status DC Potassium Chloride/Water 100 ml @ 50 mls/hr Q2H IV Last administered on 07/27/19at 12:23; Start 07/27/19 at 09:00; Stop 07/27/19 at 12:59; Status DC Furosemide (Lasix) 40 mg DAILY PO Last administered on 07/28/19at 07:51; Start 07/28/19 at 09:00 Potassium Chloride (Klor-Con) 20 meq BID PO Last administered on 07/28/19at 0 7:52; Start 07/27/19 at 21:00 Metoprolol Succinate (Toprol Xl) 25 mg DAILY PO Last administered on 07/28/19at 07:52; Start 07/28/19 at 09:00 Pantoprazole Sodium (Protonix) 40 mg DAILYAC PO Last administered on 07/28/19at 07:52; Start 07/28/19 at 07:30 Acetaminophen (Tylenol) 650 mg PRN Q6HRS PRN PO MILD PAIN / TEMP > 100.3'F; Start 07/27/19 at 12:00 Oxycodone HCl (Roxicodone) 15 mg PRN BID PRN PO SEVERE PAIN 7-10 Last administered on 07/27/19at 20:53; Start 07/27/19 at 12:00 Sodium Phosphate 15 mmol/Sodium Chloride 105 ml @ 105 mls/hr 1X ONCE IV Last administered on 07/27/19at 15:02; Start 07/27/19 at 12:30; Stop 07/27/19 at 13:2 9; Status DC Active Scripts Active Toprol XL (Metoprolol Succinate) 50 Mg Tab.er.24h 50 Mg PO DAILY Metolazone 2.5 Mg Tablet 2.5 Mg PO QODAY Furosemide 40 Mg Tablet 40 Mg PO [id number] Klor-Con M20 (Potassium Chloride) 20 Meq Tab.er.prt 20 Meq PO BIDWMEALS Amiodarone Hcl 200 Mg Tablet 200 Mg PO DAILY Eliquis (Apixaban) 5 Mg Tablet 5 Mg PO BID Reported Acetaminophen 325 Mg Tablet 325 Mg PO Q6HRS Dicyclomine Hcl 10 Mg Capsule 1 Cap PO PRN TID PRN Nexium Capsule (Esomeprazole Magnesium) 40 Mg Capsule.dr 40 Mg PO DAILYAC Oxycodone Hcl Immed.release (Oxycodone Hcl) 15 Mg Tablet 15 Mg PO PRN Q12HR PRN Alprazolam 1 Mg Tablet 1 Tab PO BID Vitals/I & O Vital Sign - Last 24 Hours 07/27/19 07/27/19 07/27/19 07/27/19 14:34 18:29 20:00 20:53 Temp 97.4 98.0 97.4 98.0 Pulse 69 66 Resp 18 18 B/P (MAP) 124/63 (83) 135/72 (93) Pulse Ox 94 93 93 O2 Delivery Room Air Room Air Nasal Cannula Nasal Cannula O2 Flow Rate 2.0 2.0 07/27/19 07/27/19 07/28/19 07/28/19 21:53 22:54 03:00 07:27 Temp 98.0 97.8 97.4 98.0 97.8 97.4 Pulse 68 67 73 Resp 20 18 B/P (MAP) 135/62 (86) 142/65 (90) 119/75 (90) Pulse Ox 94 94 95 O2 Delivery Room Air Room Air Nasal Cannula Room Air 07/28/19 07/28/19 07/28/19 07/28/19 07:52 07:53 07:53 08:00 Pulse 69 71 72 B/P (MAP) 119/70 119/70 119/70 O2 Delivery Nasal Cannula O2 Flow Rate 2.0 07/28/19 10:22 Temp 97.6 97.6 Pulse 67 Resp 16 B/P (MAP) 115/64 (81) Pulse Ox 94 O2 Delivery Room Air Intake and Output 07/27/19 07/27/19 07/28/19 15:00 23:00 07:00 Intake Total 180 ml 900 ml 500 ml Output Total 500 ml 2950 ml Balance -320 ml 900 ml -2450 ml RICK CAROLINA MD July 28, 2019 11:11
[2019-07-28] MEDS ORDERED: POTASSIUM CHLORIDE 20 MEQ TABLET.ER. PO ONE (11:15)
--- NOTE | 2019-07-28 12:23 | PDOC ---
SABINO REYNAGA [employer] 07/28/19 1223: CARDIO Progress Notes Date and Time Date of Service 07/28/2019 Time of Evaluation 1210 Subjective Subjective: No Chest Pain, No shortness of breath, No Palpitations Vitals Vitals Vital Signs Date Time Temp Pulse Resp B/P (MAP) Pulse Ox O2 Delivery O2 Flow Rate FiO2 07/28/19 10:22 97.6 67 16 115/64 (81) 94 Room Air 97.6 07/28/19 08:00 2.0 Weight Weight [ ] Input and Output Intake and Output Intake and Output 07/28/19 07:00 Intake Total 1580 ml Output Total 3450 ml Balance -1870 ml Intake Oral 680 ml Tube Feeding 900 ml Output Urine Total 3450 ml # Bowel Movements 2 Laboratory Labs Laboratory Tests Test 07/28/19 06:30 White Blood Count 5.5 x10^3/uL (4.0-11.0) Red Blood Count 4.58 x10^6/uL (4.30-5.70) Hemoglobin 13.6 g/dL (13.0-17.5) Hematocrit 40.1 % (39.0-53.0) Mean Corpuscular Volume 87 fL (79-100) Mean Corpuscular Hemoglobin 30 pg (25-35) Mean Corpuscular Hemoglobin Concent 34 g/dL (31-37) Red Cell Distribution Width 16.4 % (11.5-14.5) Platelet Count 246 x10^3/uL (140-400) Neutrophils (%) (Auto) 74 % (31-73) Lymphocytes (%) (Auto) 14 % (24-48) Monocytes (%) (Auto) 9 % (0-9) Eosinophils (%) (Auto) 4 % (0-3) Basophils (%) (Auto) 1 % (0-3) Neutrophils # (Auto) 4.1 x10^3/uL (1.8-7.7) Lymphocytes # (Auto) 0.7 x10^3/uL (1.0-4.8) Monocytes # (Auto) 0.5 x10^3/uL (0.0-1.1) Eosinophils # (Auto) 0.2 x10^3/uL (0.0-0.7) Basophils # (Auto) 0.0 x10^3/uL (0.0-0.2) Sodium Level 139 mmol/L (136-145) Potassium Level 3.4 mmol/L (3.5-5.1) Chloride Level 102 mmol/L (98-107) Carbon Dioxide Level 28 mmol/L (21-32) Anion Gap 9 (6-14) Blood Urea Nitrogen 31 mg/dL (8-26) Creatinine 1.3 mg/dL (0.7-1.3) Estimated GFR (Cockcroft-Gault) 54.1 Glucose Level 96 mg/dL (70-99) Calcium Level 8.3 mg/dL (8.5-10.1) Phosphorus Level 2.9 mg/dL (2.6-4.7) Magnesium Level 2.2 mg/dL (1.8-2.4) Microbiology Micro Microbiology 07/17/19 Urine Culture - Final, Complete 07/17/19 Urine Culture Result 1 (BOYD) - Final, Complete 07/17/19 Blood Culture - Final, Complete NO GROWTH AFTER 5 DAYS 07/17/19 Nose/Throat Culture - Final, Complete 07/17/19 - Final, Complete Review of Systems Constitutional: yes: weakness, alert, oriented Ears/Nose/Throat: Yes: no symptom reported Eyes: Yes: no symptom reported Pulmonary: Yes dyspnea Cardiovascular: Yes no symptom reported, Yes edema Gastrointestional: Yes: constipation Genitourinary: Yes: no symptom reported Musculoskeletal: Yes: muscle stiffness Skin: Yes no symptom reported Psychiatric/Neurological: Yes: no symptom reported Endocrine: Yes: no symptom reported Physical Exam HEENT: Neck Supple W Full Motion Chest: Symmetric LUNGS: Other (diminished) Heart: RRR (SR with no significant ectopies overnight) Abdomen: Soft N/T Extremities: No Edema, No Calf Tenderness Neurology: alert, oriented, follow commands, confused Assessment Assessment 1. Acute on chronic respiratory failure with a/c CHF, PNA. COVID negative. Extubated 07/25/2019, doing well 2. Acute on chronic systolic CHF: compensated 3. ICM/NICM; EF better at 40-45% 4. CAD; s/p PCI/DARSHAN to the RCA 5. Septic shock; off pressors 6 DONTAE on CKD; cardiorenal syndrome. Cr now normalized 7. Arrhythmia: prior polymorphic VT with multiple post CVN, none further 8. PAFIB: prior CVN. maintaining SR, no further ectopies 9. Hemoptysis: none in the lat 48 hours 10. Gross hematuria: none since yesterday with current CBI. Hgb normal. Recommendations 1. Continue amiodarone/metoprolol. Replace K 2. Continue ASA. Restart brilinta. Hold off any NOAC given recent hemoptysis and hematuria. Will reeval use as an outpt. May need MCOT to AFIB burden. 3. Secondary prevention measures 4. PO Lasix therapy. Keep Mg and K at least 2.0 and 4.0 respectively, replace as warranted VENU YODER MD 07/29/19 0801: CARDIO Progress Notes Plan Plan Late entry for 07/28/2019. Patient seen and examined. Agree with above nurse practitioner note. He looks and feels much better today. Supportive care for now. Continue physical therapy and Occupational Therapy. Reinitiate dual antiplatelet therapy. We will follow along. SABINO REYNAGA APRN July 28, 2019 12:23 VENU YODER MD July 29, 2019 08:01
--- NOTE | 2019-07-28 13:33 | NUR ---
SS following up with discharge planning. SS reviewed pt chart and discussed with pt RN. SS received notification from [facility], ; fax [phone], that they spoke with Dr. No and pt is now accepted pending insurance authorization. SS also received notification that pt has been accepted at [facility] if insurance does not approve acute rehabilitation. SS awaiting insurance determination and will proceed accordingly.
[2019-07-28] MEDS: TICAGRELOR 90 MG TABLET. PO SCH ×2 (14:35→21:01)
[2019-07-29 03:01] VITALS: BP 144/63
[2019-07-29] MEDS: PANTOPRAZOLE 40 MG TABLET.DR. PO SCH (05:22)
[2019-07-29 05:53] LABS: CALCIUM 7.9 mg/dL (8.5-10.1); CREATININE 1.6 mg/dL (0.7-1.3); GFR 42.6; PHOSPHORUS 2.5 mg/dL (2.6-4.7); POTASSIUM 3.2 mmol/L (3.5-5.1)
[2019-07-29 07:07] VITALS: BP 142/69
[2019-07-29] MEDS: ALPRAZolam 0.5 MG TABLET FT SCH ×2 (07:55→21:44)
[2019-07-29] MEDS: AMIODARONE HCL 200 MG TABLET. PO SCH (07:55)
[2019-07-29] MEDS: amLODIPine BESYLATE 5 MG TABLET FT SCH (07:55)
[2019-07-29] MEDS: POTASSIUM CHLORIDE 20 MEQ TABLET.ER. PO SCH (07:56)
[2019-07-29] MEDS: TICAGRELOR 90 MG TABLET. PO SCH ×2 (07:56→21:44)
[2019-07-29] MEDS: FUROSEMIDE 40 MG TABLET. PO SCH (07:56)
[2019-07-29] MEDS: ASPIRIN CHEWABLE 81 MG TABLET. PO SCH (07:57)
[2019-07-29] MEDS: METOPROLOL SUCC 24HR ER 25 MG TAB.ER.24H. PO SCH (07:57)
[2019-07-29] MEDS ORDERED: POTASSIUM CHLORIDE 20 MEQ TABLET.ER. PO ONE (09:15)
--- NOTE | 2019-07-29 09:16 | PDOC ---
CARDIOLOGY PROGRESS NOTE SUBJECTIVE: No new events overnight. Denies any chest pain or dyspnea. he is walking with PT/OT today. OBJECTIVE: Vital Signs/I&O: Vital Signs Date Time Temp Pulse Resp B/P (MAP) Pulse Ox O2 Delivery O2 Flow Rate FiO2 07/29/19 07:57 61 142/69 07/29/19 07:45 Room Air 07/29/19 07:07 97.7 16 95 97.7 07/28/19 08:00 2.0 I & O 07/28/19 07/28/19 07/29/19 15:00 23:00 07:00 Intake Total 60 ml 100 ml Output Total 1350 ml 200 ml 1300 ml Balance -1350 ml -140 ml -1200 ml Objective: a/o x3. NAD RRR, no m/r/g Lungs with bilateral rhonchi soft/obese abdomen 1+ LE edema. CURRENT MEDICATIONS: Current Medications Medications (Trade) Dose Ordered Sig/Chance Route PRN Reason Start Time Stop Time Status Last Admin Dose Admin Potassium Chloride (Klor-Con) 40 meq 1X ONCE PO 07/28/19 11:15 07/28/19 11:16 DC 07/28/19 11:41 Ticagrelor (Brilinta) 90 mg BID PO 07/28/19 12:45 07/29/19 07:56 DIAGNOSTIC TESTING: labs reviewed. Cr 1.6 Labs: Laboratory Tests 07/29/19 05:00 Laboratory Tests Test 07/29/19 05:00 Sodium Level 142 mmol/L (136-145) Potassium Level 3.2 mmol/L (3.5-5.1) L Chloride Level 106 mmol/L (98-107) Carbon Dioxide Level 31 mmol/L (21-32) Anion Gap 5 (6-14) L Blood Urea Nitrogen 34 mg/dL (8-26) H Creatinine 1.6 mg/dL (0.7-1.3) H Estimated GFR (Cockcroft-Gault) 42.6 Glucose Level 97 mg/dL (70-99) Calcium Level 7.9 mg/dL (8.5-10.1) L Phosphorus Level 2.5 mg/dL (2.6-4.7) L ASSESSMENT: 1. Acute on chronic systolic and diastolic HF. 2. DONTAE - 3. Hematuria 4. CAD s/p RCA PCI this admission 5. Afib with RVR s/p CVN and currently on amiodarone. PLAN: 1. Will hold lasix tomorrow given that he is nearly 9 L negative over the last 3 days, although ? accuracy given the CBI. 2. Continue asa, ticagrelor for now. 3. Agree with Toprol XL, amlodipine and amiodarone. Supportive care. Can plan for DC to rehab when ok with PCP. Will follow along. Thanks. VENU YODER MD July 29, 2019 09:16
--- NOTE | 2019-07-29 09:42 | PDOC ---
PULMONARY PROGRESS NOTES Subjective sob better, has cough due to post nasal drip, has chest wall pain w coughing extubated 07/24 Vitals Vital Signs Date Time Temp Pulse Resp B/P (MAP) Pulse Ox O2 Delivery O2 Flow Rate FiO2 07/29/19 07:57 61 142/69 07/29/19 07:45 Room Air 07/29/19 07:07 97.7 16 95 97.7 07/28/19 08:00 2.0 General: Alert, No acute distress Lungs: Other (decrease bs) Cardiovascular: S1, S2 Abdomen: Soft, Non-tender Extremities: Other (BLE +1 edema ) Skin: Warm Labs Laboratory Tests Test 07/28/19 06:30 07/29/19 05:00 White Blood Count 5.5 x10^3/uL (4.0-11.0) Red Blood Count 4.58 x10^6/uL (4.30-5.70) Hemoglobin 13.6 g/dL (13.0-17.5) Hematocrit 40.1 % (39.0-53.0) Mean Corpuscular Volume 87 fL (79-100) Mean Corpuscular Hemoglobin 30 pg (25-35) Mean Corpuscular Hemoglobin Concent 34 g/dL (31-37) Red Cell Distribution Width 16.4 % (11.5-14.5) Platelet Count 246 x10^3/uL (140-400) Neutrophils (%) (Auto) 74 % (31-73) Lymphocytes (%) (Auto) 14 % (24-48) Monocytes (%) (Auto) 9 % (0-9) Eosinophils (%) (Auto) 4 % (0-3) Basophils (%) (Auto) 1 % (0-3) Neutrophils # (Auto) 4.1 x10^3/uL (1.8-7.7) Lymphocytes # (Auto) 0.7 x10^3/uL (1.0-4.8) Monocytes # (Auto) 0.5 x10^3/uL (0.0-1.1) Eosinophils # (Auto) 0.2 x10^3/uL (0.0-0.7) Basophils # (Auto) 0.0 x10^3/uL (0.0-0.2) Sodium Level 139 mmol/L (136-145) 142 mmol/L (136-145) Potassium Level 3.4 mmol/L (3.5-5.1) 3.2 mmol/L (3.5-5.1) Chloride Level 102 mmol/L (98-107) 106 mmol/L (98-107) Carbon Dioxide Level 28 mmol/L (21-32) 31 mmol/L (21-32) Anion Gap 9 (6-14) 5 (6-14) Blood Urea Nitrogen 31 mg/dL (8-26) 34 mg/dL (8-26) Creatinine 1.3 mg/dL (0.7-1.3) 1.6 mg/dL (0.7-1.3) Estimated GFR (Cockcroft-Gault) 54.1 42.6 Glucose Level 96 mg/dL (70-99) 97 mg/dL (70-99) Calcium Level 8.3 mg/dL (8.5-10.1) 7.9 mg/dL (8.5-10.1) Phosphorus Level 2.9 mg/dL (2.6-4.7) 2.5 mg/dL (2.6-4.7) Magnesium Level 2.2 mg/dL (1.8-2.4) 2.0 mg/dL (1.8-2.4) Laboratory Tests Test 07/29/19 05:00 Sodium Level 142 mmol/L (136-145) Potassium Level 3.2 mmol/L (3.5-5.1) Chloride Level 106 mmol/L (98-107) Carbon Dioxide Level 31 mmol/L (21-32) Anion Gap 5 (6-14) Blood Urea Nitrogen 34 mg/dL (8-26) Creatinine 1.6 mg/dL (0.7-1.3) Estimated GFR (Cockcroft-Gault) 42.6 Glucose Level 97 mg/dL (70-99) Calcium Level 7.9 mg/dL (8.5-10.1) Phosphorus Level 2.5 mg/dL (2.6-4.7) Magnesium Level 2.0 mg/dL (1.8-2.4) Medications Active Scripts Medications Dose Route/Sig Max Daily Dose Days Date Category Toprol XL (Metoprolol Succinate) 50 Mg Tab.er.24h 50 Mg PO DAILY 06/20/19 Rx Metolazone 2.5 Mg Tablet 2.5 Mg PO QODAY 06/20/19 Rx Furosemide 40 Mg Tablet 40 Mg PO BID92 06/20/19 Rx Klor-Con M20 (Potassium Chloride) 20 Meq Tab.er.prt 20 Meq PO BIDWMEALS 06/20/19 Rx Amiodarone Hcl 200 Mg Tablet 200 Mg PO DAILY 06/20/19 Rx Eliquis (Apixaban) 5 Mg Tablet 5 Mg PO BID 06/20/19 Rx Acetaminophen 325 Mg Tablet 325 Mg PO Q6HRS 06/13/19 Reported Dicyclomine Hcl 10 Mg Capsule 1 Cap PO PRN TID PRN 05/17/19 Reported Nexium Capsule (Esomeprazole Magnesium) 40 Mg Capsule.dr 40 Mg PO DAILYAC 05/17/19 Reported Oxycodone Hcl Immed.release (Oxycodone Hcl) 15 Mg Tablet 15 Mg PO PRN Q12HR PRN 05/17/19 Reported Alprazolam 1 Mg Tablet 1 Tab PO BID 02/05/17 Reported Comments EF from 07/20/2019 <Conclusion> Left ventricle systolic function is mildly impaired. The Ejection Fraction is 40-45%. Septal motion consistent with conduction abnormality. Mild global hypokinesis. Technically difficult study. Limited study for EF only. cxr 07/25 basilar atelectasis Impression . IMPRESSION: 1. Acute hypoxemic hypercapnic respiratory failure. extubated 07/24 2. Bilateral pulmonary infiltrates, suspect combination of congestive heart failure and pneumonia. 3. Sepsis. 4. SARS-CoV 2, negative 5. Cardiomyopathy, ejection fraction of 15%., now 40% 6. Chronic atrial fibrillation. 7. DONTAE/Chronic kidney disease. 8. Acute on chronic systolic heart failure. 9. Hypotension, RESOLVED 10. Mild elevation in troponin. 11. Paroxysmal atrial fibrillation with recent cardioversion. 12. Status post CODE BLUE secondary to V. tach/coronary artery disease see below CArdiac CAth 07/18/2019 Conclusion 1. Normal biventricular filling pressures. 2. Mild pulmonary HTN 3. Normal cardiac output at 5.1 L/min 4. One vessel coronary disease. 5. Successful PCI of the RCA as described above 6. Patient had one episode of SVT with hypotension requiring synchronized cardioversion to SR. Plan . 1. extubated 07/24. 02 titration add flonase for post nasal drip 2. bronchodilators/ CXR reviewed 3. Follow cardiology recs and lasix 4. off ABX Zosyn per ID 5. Follow nephrology recs 6. D/W RN and RT 7. Optimize BP 8. PT consult 9. speech f/u, eating PO 10. no hemoptysis, on asa and burlinta and off eliquis discussed w rn, pt, primary dr CODE: ANCELMO NERI MD July 29, 2019 09:41
[2019-07-29 10:34] VITALS: BP 128/68
--- NOTE | 2019-07-29 11:36 | RAD ---
CHEST PA LATERAL History: Reason: dyspnea / Spl. Instructions: / History: Comparison: July 26, 2019 Findings: Low lung volumes. Patchy bibasilar opacities. Left-sided central line with tip projecting over the brachiocephalic/SVC junction. Postop changes lower cervical spine. No pneumothorax. Unchanged heart size. Postop changes right upper abdomen. Small pleural effusions seen posteriorly. Elevation of the right hemidiaphragm, unchanged. Impression: 1. Patchy bibasilar opacities, decreased compared to prior. 2. Small pleural effusions. Electronically signed by: Beni Villalobos DO (07/29/2019 11:33 AM) [id number]
--- NOTE | 2019-07-29 11:52 | PDOC ---
PROGRESS NOTES Subjective Subjective feels better. gross hematuria resolved. nurse spoke with dr. robertson who wants to continue hold eliquis for now. takes aspirin and brillinta. discussed with his nurse,. potassium low 3.2 and will receive kcl. lasix discontinued per cardiology temporarily due to high urine output but part ot that is due to recent CBI stopped yesterday, Objective Objective Vital Signs Date Time Temp Pulse Resp B/P (MAP) Pulse Ox O2 Delivery O2 Flow Rate FiO2 07/29/19 10:34 97.6 62 18 128/68 (88) 96 Room Air 97.6 07/28/19 08:00 2.0 Intake and Output 07/29/19 07:00 Intake Total 160 ml Output Total 2850 ml Balance -2690 ml Intake Oral 160 ml Output Urine Total 2850 ml # Bowel Movements 3 Physical Exam Abdomen: Soft Heart: Regular rate, Normal S1, Normal S2 Extremities: Other (trace edema legs) General: Alert HEENT: Atraumatic Lungs: Other (few crackles right base ) Neuro: Normal speech Psych/Mental Status: Mental status NL Skin: No rashes Assessment Assessment ProblemsAcute pulmonary edema. compensated 2. Acute on chronic systolic congestive heart failure.compensated 3. Severe cardiomyopathy with left ventricular ejection fraction improved to 40-45% 07/19 per echo 4. Acute hypoxic and hypercarbic respiratory failure, improved 5. Paroxysmal atrial fibrillation, currently in NSR 6. sepsis with shock, shock resolved 7. chronic kidney disease stage 3. 8. Gastroesophageal reflux disease. 9. bilateral lung infiltrates. suspect pneumonia treated hypokalemia hypomagnesemia treated VT cardiac arrest 07/17 and again 07/19 PCI RCA 07/17 hypertension gross hematuira resolved hemoptysis resolved critical illness myopathy Medical Problems: (1) Acute exacerbation of CHF (congestive heart failure) Status: Acute (2) Acute on chronic renal insufficiency Status: Acute (3) Elevated troponin I level Status: Acute (4) Septic shock Status: Acute (5) Suspected COVID-19 virus infection Status: Acute Plan Plan of Care d/c jade continue aspirin and brillinta PT and OT replete kcl lasix discontinued for now lab tomorrow patient accepted at [facility] and awaiting insurance approval Comment Review of Relevant I have reviewed the following items juan (where applicable) has been applied. Labs Laboratory Tests Test 07/28/19 06:30 07/29/19 05:00 White Blood Count 5.5 x10^3/uL (4.0-11.0) Red Blood Count 4.58 x10^6/uL (4.30-5.70) Hemoglobin 13.6 g/dL (13.0-17.5) Hematocrit 40.1 % (39.0-53.0) Mean Corpuscular Volume 87 fL (79-100) Mean Corpuscular Hemoglobin 30 pg (25-35) Mean Corpuscular Hemoglobin Concent 34 g/dL (31-37) Red Cell Distribution Width 16.4 % (11.5-14.5) Platelet Count 246 x10^3/uL (140-400) Neutrophils (%) (Auto) 74 % (31-73) Lymphocytes (%) (Auto) 14 % (24-48) Monocytes (%) (Auto) 9 % (0-9) Eosinophils (%) (Auto) 4 % (0-3) Basophils (%) (Auto) 1 % (0-3) Neutrophils # (Auto) 4.1 x10^3/uL (1.8-7.7) Lymphocytes # (Auto) 0.7 x10^3/uL (1.0-4.8) Monocytes # (Auto) 0.5 x10^3/uL (0.0-1.1) Eosinophils # (Auto) 0.2 x10^3/uL (0.0-0.7) Basophils # (Auto) 0.0 x10^3/uL (0.0-0.2) Sodium Level 139 mmol/L (136-145) 142 mmol/L (136-145) Potassium Level 3.4 mmol/L (3.5-5.1) 3.2 mmol/L (3.5-5.1) Chloride Level 102 mmol/L (98-107) 106 mmol/L (98-107) Carbon Dioxide Level 28 mmol/L (21-32) 31 mmol/L (21-32) Anion Gap 9 (6-14) 5 (6-14) Blood Urea Nitrogen 31 mg/dL (8-26) 34 mg/dL (8-26) Creatinine 1.3 mg/dL (0.7-1.3) 1.6 mg/dL (0.7-1.3) Estimated GFR (Cockcroft-Gault) 54.1 42.6 Glucose Level 96 mg/dL (70-99) 97 mg/dL (70-99) Calcium Level 8.3 mg/dL (8.5-10.1) 7.9 mg/dL (8.5-10.1) Phosphorus Level 2.9 mg/dL (2.6-4.7) 2.5 mg/dL (2.6-4.7) Magnesium Level 2.2 mg/dL (1.8-2.4) 2.0 mg/dL (1.8-2.4) Laboratory Tests Test 07/29/19 05:00 Sodium Level 142 mmol/L (136-145) Potassium Level 3.2 mmol/L (3.5-5.1) Chloride Level 106 mmol/L (98-107) Carbon Dioxide Level 31 mmol/L (21-32) Anion Gap 5 (6-14) Blood Urea Nitrogen 34 mg/dL (8-26) Creatinine 1.6 mg/dL (0.7-1.3) Estimated GFR (Cockcroft-Gault) 42.6 Glucose Level 97 mg/dL (70-99) Calcium Level 7.9 mg/dL (8.5-10.1) Phosphorus Level 2.5 mg/dL (2.6-4.7) Magnesium Level 2.0 mg/dL (1.8-2.4) Microbiology 07/17/19 Urine Culture - Final, Complete 07/17/19 Urine Culture Result 1 (BOYD) - Final, Complete 07/17/19 Blood Culture - Final, Complete NO GROWTH AFTER 5 DAYS 07/17/19 Nose/Throat Culture - Final, Complete 07/17/19 - Final, Complete Medications Current Medications Nitroglycerin (Nitrostat) 0.4 mg STK-MED ONCE SL ; Start 07/17/19 at 04:28; Stop 07/17/19 at 04:28; Status DC Nitroglycerin (Nitrostat) 0.4 mg 1X ONCE SL Last administered on 07/17/19at 04:29; Start 07/17/19 at 04:30; Stop 07/17/19 at 04:43; Status DC Nitroglycerin/ Dextrose 250 ml @ 0 mls/hr 1X ONCE IV Last administered on 07/17/19at 04:47; Start 07/17/19 at 04:45; Stop 07/17/19 at 04:46; Status DC Rocuronium [place] (Zemuron) 50 mg 1X ONCE IV Last administered on 07/17/19at 04:44; Start 07/17/19 at 04:45; Stop 07/17/19 at 04:46; Status DC Etomidate (Amidate) 20 mg 1X ONCE IV Last administered on 07/17/19at 04:43; Start 07/17/19 at 04:45; Stop 07/17/19 at 04:46; Status DC Propofol 100 ml @ 0 mls/hr CONT PRN IV SEE PROTOCOL Last administered on 07/24/19at 18:33; Start 07/17/19 at 05:15; Stop 07/25/19 at 18:27; Status DC Aspirin (Aspirin Rectal Supp) 300 mg 1X ONCE RI Last administered on 07/17/19at 06:01; Start 07/17/19 at 05:45; Stop 07/17/19 at 05:46; Status DC Bumetanide (Bumex) 1 mg 1X ONCE IV Last administered on 07/17/19at 06:00; Start 07/17/19 at 06:00; Stop 07/17/19 at 06:01; Status DC Piperacillin Sod/ Tazobactam Sod 4.5 gm/Sodium Chloride 100 ml @ 200 mls/hr 1X ONCE IV Last administered on 07/17/19at 11:14; Start 07/17/19 at 06:00; Stop 07/17/19 at 06:29; Status DC Vancomycin HCl (Vanco Per Pharmacy) 1 each PRN DAILY PRN MC SEE COMMENTS Last administered on 07/17/19at 06:43; Start 07/17/19 at 06:00; Stop 07/17/19 at 10:41; Status DC Vancomycin HCl 2 gm/Sodium Chloride 500 ml @ 250 mls/hr 1X ONCE IV Last administered on 07/17/19at 06:15; Start 07/17/19 at 06:00; Stop 07/17/19 at 07:59; Status DC Ondansetron HCl (Zofran) 4 mg PRN Q8HRS PRN IV NAUSEA/VOMITING; Start 07/17/19 at 06:00; Stop 07/18/19 at 05:59; Status DC Norepinephrine Bitartrate 8 mg/ Dextrose 258 ml @ 0 mls/hr CONT PRN IV SEE I/O RECORD Last administered on 07/17/19at 21:52; Start 07/17/19 at 06:30; Stop 07/18/19 at 13:40; Status DC Vancomycin HCl 1.75 gm/Sodium Chloride 500 ml @ 250 mls/hr Q24H IV ; Start 07/18/19 at 06:30; Stop 07/17/19 at 10:38; Status DC Vancomycin HCl (Vancomycin Trough Level) 1 each 1X ONCE MC ; Start 07/19/19 at 06:00; Stop 07/19/19 at 06:01; Status Cancel Morphine Sulfate (Morphine Sulfate) 6 mg 1X ONCE IV Last administered on 07/17/19at 07:08; Start 07/17/19 at 07:15; Stop 07/17/19 at 07:16; Status DC Midazolam HCl 100 ml @ 0 mls/hr CONT PRN IV SEE PROTOCOL Last administered on 07/22/19at 23:41; Start 07/17/19 at 07:15; Stop 07/25/19 at 18:27; Status DC Morphine Sulfate (Morphine Sulfate) 4 mg PRN Q1HR PRN IV SEE COMMENTS.; Start 07/17/19 at 08:00; Stop 07/17/19 at 10:38; Status DC Heparin Sodium (Porcine) (Heparin Sodium) 5,000 unit Q12HR SQ ; Start 07/17/19 at 21:00; Stop 07/17/19 at 10:38; Status DC Amiodarone HCl (Cordarone) 200 mg DAILY PO Last administered on 07/21/19at 09:04; Start 07/18/19 at 09:00; Stop 07/21/19 at 15:07; Status DC Metolazone (Zaroxolyn) 2.5 mg QODAY PO ; Start 07/19/19 at 09:00; Stop 07/18/19 at 10:36; Status DC Potassium Chloride (Klor-Con) 20 meq BIDWMEALS PO Last administered on 07/17/19at 16:34; Start 07/17/19 at 17:00; Stop 07/18/19 at 10:36; Status DC Furosemide (Lasix) 40 mg [id number] IVP Last administered on 07/18/19at 08:03; Start 07/17/19 at 14:00; Stop 07/20/19 at 11:02; Status DC Morphine Sulfate (Morphine Sulfate) 2 mg PRN Q4HRS PRN IV SEE COMMENTS.; Start 07/17/19 at 10:30; Status Cancel Apixaban (Eliquis) 5 mg BID FT Last administered on 07/23/19at 08:17; Start 07/17/19 at 21:00; Stop 07/23/19 at 10:05; Status DC Insulin Human Lispro (HumaLOG) 0-6 UNITS Q6HRS SQ ; Start 07/17/19 at 12:00; Stop 07/23/19 at 10:06; Status DC Lansoprazole (Prevacid) 30 mg DAILY FT Last administered on 07/27/19at 08:36; Start 07/18/19 at 09:00; Stop 07/27/19 at 11:55; Status DC Acetaminophen (Tylenol) 650 mg PRN Q6HRS PRN FT MILD PAIN / TEMP > 100.3'F; Start 07/17/19 at 10:30; Stop 07/27/19 at 11:55; Status DC Alprazolam (Xanax) 1 mg BID FT Last administered on 07/29/19at 07:55; Start 07/17/19 at 21:00 Magnesium Hydroxide (Milk Of Magnesia) 2,400 mg PRN DAILY PRN FT CONSTIPATION; Start 07/17/19 at 10:30 Dexmedetomidine HCl 400 mcg/ Sodium Chloride 100 ml @ 0 mls/hr CONT PRN IV PER PROTOCOL Last administered on 07/20/19at 13:31; Start 07/17/19 at 11:00; Stop 07/25/19 at 18:27; Status DC Sodium Chloride 500 ml @ 500 mls/hr 1X PRN PRN IV SEE COMMENTS; Start 07/17/19 at 11:00; Stop 07/22/19 at 12:54; Status DC Atropine Sulfate (ATROPINE 0.5mg SYRINGE) 0.5 mg PRN Q5MIN PRN IV SEE COMMENTS; Start 07/17/19 at 11:00; Stop 07/25/19 at 18:27; Status DC Morphine Sulfate (Morphine Sulfate) 2 mg PRN Q1HR PRN IV SEE COMMENTS. Last administered on 07/17/19at 13:37; Start 07/17/19 at 11:15; Stop 07/27/19 at 11:55; Status DC Morphine Sulfate (Morphine Sulfate) 4 mg PRN Q1HR PRN IV SEE COMMENTS. Last administered on 07/18/19at 13:53; Start 07/17/19 at 11:15; Stop 07/27/19 at 11:55; Status DC Piperacillin Sod/ Tazobactam Sod 2.25 gm/Sodium Chloride 50 ml @ 100 mls/hr Q6HRS IV Last administered on 07/22/19at 05:46; Start 07/17/19 at 18:00; Stop 07/22/19 at 08:47; Status DC Magnesium Sulfate 50 ml @ 25 mls/hr 1X ONCE IV Last administered on 07/18/19at 08:04; Start 07/18/19 at 07:15; Stop 07/18/19 at 09:14; Status DC Milrinone Lactate/ Dextrose 100 ml @ 0 mls/hr CONT PRN IV SEE I/O RECORD Last administered on 07/20/19at 02:37; Start 07/18/19 at 07:15; Stop 07/23/19 at 10:03; Status DC Linezolid/Dextrose 300 ml @ 300 mls/hr Q12HR IV Last administered on 07/19/19at 21:29; Start 07/18/19 at 09:00; Stop 07/20/19 at 08:25; Status DC Info (Anti-Coagulation Monitoring By Pharmacy) 1 each PRN DAILY PRN MC SEE COMMENTS Last administered on 07/20/19at 14:42; Start 07/18/19 at 08:00 Vecuronium [place] (Norcuron Bolus) 10 mg STK-MED ONCE IV ; Start 07/18/19 at 09:12; Stop 07/18/19 at 09:12; Status DC Potassium Chloride/Water 100 ml @ 100 mls/hr 1X ONCE IV Last administered on 07/18/19at 10:04; Start 07/18/19 at 09:45; Stop 07/18/19 at 10:44; Status DC Magnesium Sulfate 50 ml @ 25 mls/hr 1X ONCE IV Last administered on 07/18/19at 10:03; Start 07/18/19 at 09:45; Stop 07/18/19 at 11:44; Status DC Norepinephrine Bitartrate 32 mg/ Dextrose 282 ml @ 0 mls/hr CONT PRN IV SEE I/O RECORD Last administered on 07/19/19at 10:39; Start 07/18/19 at 11:15; Stop 07/23/19 at 10:05; Status DC Morphine Sulfate 30 ml @ 0 mls/hr CONT PRN PRN IV PER PROTOCOL Last administered on 07/25/19at 02:46; Start 07/18/19 at 12:45; Stop 07/25/19 at 18: 27; Status DC Lidocaine HCl (Xylocaine-Mpf 1% 2ml Vial) 2 ml STK-MED ONCE .ROUTE ; Start 07/18/19 at 13:05; Stop 07/18/19 at 13:05; Status DC Iodixanol (Visipaque 320) 100 ml STK-MED ONCE .ROUTE ; Start 07/18/19 at 13:05; Stop 07/18/19 at 13:06; Status DC Heparin Sodium/ Sodium Chloride 1,500 ml @ As Directed STK-MED ONCE .ROUTE ; Start 07/18/19 at 13:05; Stop 07/18/19 at 13:06; Status DC Vecuronium [place] (Norcuron Bolus) 10 mg STK-MED ONCE IV ; Start 07/18/19 at 13:49; Stop 07/18/19 at 13:49; Status DC Vecuronium [place] (Norcuron Bolus) 6 mg PRN Q4HRS PRN IV ANXIETY / AGITATION; Start 07/18/19 at 14:00; Stop 07/25/19 at 18:27; Status DC Epinephrine HCl 5 mg/Sodium Chloride 255 ml @ 32.926 mls/ hr CONT PRN IV SEE I/O RECORD; Start 07/18/19 at 14:00; Stop 07/24/19 at 11:06; Status DC Lidocaine HCl (Lidocaine 1% 20ml Vial) 20 ml STK-MED ONCE .ROUTE ; Start 07/18/19 at 14:11; Stop 07/18/19 at 14:11; Status DC Heparin Sodium (Porcine) (Heparin Sodium) 10,000 unit STK-MED ONCE .ROUTE ; Start 07/18/19 at 14:27; Stop 07/18/19 at 14:28; Status DC Heparin Sodium/ Sodium Chloride (HEPARIN for ARTERIAL LINE FLUSH) 1,000 unit 1X ONCE IART Last administered on 07/18/19at 14:45; Start 07/18/19 at 14:45; Stop 07/18/19 at 14:52; Status DC Heparin Sodium/ Sodium Chloride (HEPARIN for ARTERIAL LINE FLUSH) 1,000 unit 1X ONCE IART Last administered on 07/18/19at 14:45; Start 07/18/19 at 14:45; Stop 07/18/19 at 14:52; Status DC Iodixanol (Visipaque 320) 100 ml 1X ONCE IART Last administered on 07/18/19at 14:45; Start 07/18/19 at 14:45; Stop 07/18/19 at 14:52; Status DC Heparin Sodium (Porcine) (Heparin Sodium) 7,000 unit 1X ONCE IV Last administered on 07/18/19at 14:45; Start 07/18/19 at 14:45; Stop 07/18/19 at 14:52; Status DC Lidocaine HCl (Lidocaine 1% 20ml Vial) 20 ml 1X ONCE INJ Last administered on 07/18/19at 14:45; Start 07/18/19 at 14:45; Stop 07/18/19 at 14:52; Status DC Heparin Sodium/ Sodium Chloride 500 ml @ As Directed STK-MED ONCE .ROUTE ; Start 07/18/19 at 15:11; Stop 07/18/19 at 15:11; Status DC Ticagrelor (Brilinta) 180 mg 1X ONCE PO Last administered on 07/18/19at 16:08; Start 07/18/19 at 16:00; Stop 07/18/19 at 16:01; Status DC Digoxin (Lanoxin) 250 mcg 1X ONCE IV ; Start 07/19/19 at 06:15; Stop 07/19/19 at 06:16; Status Cancel Digoxin (Lanoxin) 250 mcg 1X ONCE IV Last administered on 07/19/19at 05:15; Start 07/19/19 at 05:15; Stop 07/19/19 at 06:11; Status DC Digoxin (Lanoxin) 250 mcg 1X ONCE IV Last administered on 07/19/19at 08:48; Start 07/19/19 at 09:00; Stop 07/19/19 at 09:01; Status DC Digoxin (Lanoxin) 250 mcg 1X ONCE IV Last administered on 07/19/19at 04:15; Start 07/19/19 at 04:10; Stop 07/19/19 at 06:15; Status DC Vecuronium [place] (Norcuron Bolus) 20 mg STK-MED ONCE IV ; Start 07/18/19 at 12:00; Stop 07/19/19 at 08:48; Status DC Potassium Chloride/Water 100 ml @ 100 mls/hr 1X ONCE IV Last administered on 07/19/19at 12:13; Start 07/19/19 at 11:45; Stop 07/19/19 at 12:44; Status DC Amiodarone HCl 150 mg/Dextrose 103 ml @ 618 mls/hr 1X ONCE IV Last administered on 07/19/19at 12:15; Start 07/19/19 at 12:00; Stop 07/19/19 at 12:09; Status DC Metoprolol Tartrate (Lopressor) 12.5 mg Q6HRS PO Last administered on 07/23/19at 05:54; Start 07/19/19 at 12:00; Stop 07/23/19 at 10:05; Status DC Amiodarone HCl (Cordarone) 300 mg STK-MED ONCE .ROUTE ; Start 07/18/19 at 16:08; Stop 07/19/19 at 16:08; Status DC Epinephrine HCl (EPINEPHrine SYRINGE) 4 mg STK-MED ONCE .ROUTE ; Start 07/18/19 at 16:08; Stop 07/19/19 at 16:08; Status DC Aspirin (Aspirin Chewable) 81 mg 1X ONCE PO Last administered on 07/19/19at 17:28; Start 07/19/19 at 17:00; Stop 07/19/19 at 17:06; Status DC Aspirin (Aspirin Chewable) 81 mg [id number] PO Last administered on 07/29/19at 07:57; Start 07/20/19 at 08:00 Ticagrelor (Brilinta) 90 mg BID PO Last administered on 07/25/19at 08:23; Start 07/20/19 at 09:00; Stop 07/25/19 at 14:13; Status DC Ticagrelor (Brilinta) 90 mg 1X ONCE PO Last administered on 07/19/19at 17:28; Start 07/19/19 at 17:00; Stop 07/19/19 at 17:07; Status DC Info (Tpn Per Pharmacy) 1 each PRN DAILY PRN MC SEE COMMENTS Last administered on 07/21/19at 11:58; Start 07/19/19 at 17:00; Stop 07/21/19 at 19:42; Status DC Magnesium Sulfate/ Dextrose 100 ml @ 100 mls/hr 1X ONCE IV Last administered on 07/20/19at 09:40; Start 07/20/19 at 09:45; Stop 07/20/19 at 10:44; Status DC Magnesium Sulfate/ Dextrose 100 ml @ 100 mls/hr 1X ONCE IV Last administered on 07/20/19at 11:43; Start 07/20/19 at 09:45; Stop 07/20/19 at 10:44; Status DC Potassium Chloride/Water 100 ml @ 100 mls/hr Q1H IV Last administered on 07/20/19at 15:45; Start 07/20/19 at 09:45; Stop 07/20/19 at 13:44; Status DC Amiodarone HCl 450 mg/Dextrose 259 ml @ 0 mls/hr CONT PRN IV SEE I/O RECORD; Start 07/20/19 at 10:00; Status Cancel Lidocaine HCl (Lidocaine HCl 2% Abboject) 80 mg 1X ONCE IV Last administered on 07/20/19at 10:11; Start 07/20/19 at 10:00; Stop 07/20/19 at 10:03; Status DC Lidocaine HCl/ Dextrose 500 ml @ 0 mls/hr CONT PRN IV SEE I/O RECORD Last administered on 07/20/19at 10:15; Start 07/20/19 at 10:00; Stop 07/21/19 at 15:07; Status DC Furosemide (Lasix) 40 mg DAILY IVP Last administered on 07/22/19at 09:03; Start 07/21/19 at 09:00; Stop 07/22/19 at 12:54; Status DC Sodium Chloride 90 meq/Potassium Chloride 50 meq/ Potassium Phosphate 13.6 mmol/Magnesium Sulfate 10 meq/ Calcium Gluconate 10 meq/ Multivitamins 10 ml/Chromium/ Copper/Manganese/ Seleni/Zn 1 ml/ Total Parenteral Nutrition/Amino Acids/Dextrose/ Fat Emulsion Intravenous 1,512 ml @ 63 mls/hr TPN CONT IV Last administered on 07/20/19at 22:01; Start 07/20/19 at 22:00; Stop 07/21/19 at 21:59; Status DC Sodium Chloride 90 meq/Potassium Chloride 50 meq/ Potassium Phosphate 13.6 mmol/ Magnesium Sulfate 10 meq/ Calcium Gluconate 10 meq/ Multivitamins 10 ml/Chromium/ Copper/Manganese/ Seleni/Zn 1 ml/ Total Parenteral Nutrition/Amino Acids/Dextrose/ Fat Emulsion Intravenous 1,512 ml @ 63 mls/hr TPN CONT IV ; Start 07/21/19 at 22:00; Stop 07/22/19 at 09:05; Status DC Potassium Chloride (Klor-Con) 40 meq 1X ONCE PO Last administered on 07/21/19at 15:38; Start 07/21/19 at 14:30; Stop 07/21/19 at 14:33; Status DC Amiodarone HCl (Cordarone) 400 mg DAILY PO Last administered on 07/29/19at 07 :55; Start 07/22/19 at 09:00 Amiodarone HCl (Cordarone) 200 mg 1X ONCE PO Last administered on 07/21/19at 15:38; Start 07/21/19 at 15:15; Stop 07/21/19 at 15:16; Status DC Info (Tpn Per Pharmacy) 1 each PRN DAILY PRN MC SEE COMMENTS; Start 07/22/19 at 08:45; Status Cancel Piperacillin Sod/ Tazobactam Sod 3.375 gm/Sodium Chloride 50 ml @ 100 mls/hr Q6HRS IV Last administered on 07/25/19at 05:33; Start 07/22/19 at 12:00; Stop 07/25/19 at 10:10; Status DC Potassium Chloride (Klor-Con) 40 meq 1X ONCE PO Last administered on 07/22/19at 12:03; Start 07/22/19 at 11:45; Stop 07/22/19 at 11:47; Status DC Desmopressin Acetate (Ddavp) 4 mcg BID SQ Last administered on 07/23/19at 10:20; Start 07/22/19 at 14:00; Stop 07/23/19 at 09:01; Status DC Metoprolol Tartrate (Lopressor) 12.5 mg Q12HR PO Last administered on 07/27/19at 08:38; Start 07/23/19 at 21:00; Stop 07/27/19 at 11:55; Status DC Potassium Bicarbonate (Potassium Effervescent Tablet) 40 meq 1X ONCE PO Last administered on 07/23/19at 12:49; Start 07/23/19 at 10:15; Stop 07/23/19 at 10:16; Status DC Magnesium Sulfate 50 ml @ 25 mls/hr PRN DAILY PRN IV for Mag < 1.7 on am labs; Start 07/23/19 at 13:15 Potassium Chloride/Water 100 ml @ 50 mls/hr PRN Q6HRS PRN IV For K < 3.7 Last administered on 07/25/19at 06:28; Start 07/23/19 at 13:15; Stop 07/27/19 at 11:55; Status DC Potassium Chloride/Water 100 ml @ 50 mls/hr PRN Q2HR PRN IV total of 40mEq for K < 3.5 Last administered on 07/26/19at 06:15; Start 07/23/19 at 13:15; Stop 07/27/19 at 11:55; Status DC Amino Acids/ Glycerin/ Electrolytes 1,000 ml @ 50 mls/hr Q20H IV ; Start 07/23/19 at 13:15; Stop 07/23/19 at 17:04; Status DC Furosemide (Lasix) 40 mg [id number] IVP Last administered on 07/27/19at 09:59; Start 07/23/19 at 14:00; Stop 07/27/19 at 11:08; Status DC Dextrose 1,000 ml @ 75 mls/hr [id number] IV Last administered on 07/23/19at 17:09; Start 07/23/19 at 17:00; Stop 07/24/19 at 11:06; Status DC Nitroglycerin/ Dextrose 250 ml @ 1.5 mls/hr CONT PRN IV SEE I/O RECORD Last administered on 07/24/19at 08:05; Start 07/24/19 at 08:00; Stop 07/27/19 at 11:55; Status DC Potassium Chloride (Klor-Con) 40 meq 1X ONCE PO ; Start 07/24/19 at 11:00; Stop 07/24/19 at 11:04; Status DC Potassium Bicarbonate (Potassium Effervescent Tablet) 40 meq 1X ONCE PO Last administered on 07/24/19at 11:54; Start 07/24/19 at 12:00; Stop 07/24/19 at 12:01; Status DC Magnesium Sulfate 50 ml @ 25 mls/hr PRN DAILY PRN IV for Mag < 1.7 on am labs; Start 07/25/19 at 08:45; Stop 07/25/19 at 15:52; Status DC Magnesium Sulfate 50 ml @ 25 mls/hr 1X ONCE IV Last administered on 07/25/19at 10:05; Start 07/25/19 at 10:00; Stop 07/25/19 at 11:59; Status DC Piperacillin Sod/ Tazobactam Sod 3.375 gm/Sodium Chloride 50 ml @ 100 mls/hr Q8HRS IV Last administered on 07/26/19at 05:33; Start 07/25/19 at 14:00; Stop 07/26/19 at 10:16; Status DC Amlodipine Besylate (Norvasc) 2.5 mg DAILY FT Last administered on 07/26/19at 09:16; Start 07/25/19 at 11:00; Stop 07/26/19 at 10:16; Status DC Potassium Chloride/Water 100 ml @ 100 mls/hr Q1H IV Last administered on 07/25/19at 16:01; Start 07/25/19 at 15:00; Stop 07/25/19 at 16:59; Status DC Potassium Chloride/Water 100 ml @ 50 mls/hr 1X ONCE IV Last administered on 07/26/19at 09:53; Start 07/26/19 at 10:00; Stop 07/26/19 at 11:59; Status DC Potassium Chloride/Water 100 ml @ 50 mls/hr 1X ONCE IV Last administered on 07/26/19at 12:24; Start 07/26/19 at 12:00; Stop 07/26/19 at 13:59; Status DC Magnesium Sulfate 50 ml @ 25 mls/hr 1X ONCE IV Last administered on 07/26/19at 14:12; Start 07/26/19 at 09:45; Stop 07/26/19 at 11:44; Status DC Amlodipine Besylate (Norvasc) 5 mg DAILY FT Last administered on 07/29/19at 07:55; Start 07/27/19 at 09:00 Potassium Chloride/Water 100 ml @ 50 mls/hr Q2H IV Last administered on 07/27/19at 00:56; Start 07/26/19 at 21:00; Stop 07/27/19 at 00:59; Status DC Haloperidol Lactate (Haldol Inj) 2 mg 1X ONCE IM Last administered on 07/27/19at 01:40; Start 07/27/19 at 01:15; Stop 07/27/19 at 01:16; Status DC Quetiapine Fumarate (SEROquel) 25 mg PRN Q6HRS PRN PO AGITATION Last administered on 07/27/19at 01:21; Start 07/27/19 at 01:00 Alteplase, Recombinant (Cathflo For Central Catheter Clearance) 1 mg 1X ONCE INT CAT Last administered on 07/27/19at 08:43; Start 07/27/19 at 08:00; Stop 07/27/19 at 08:15; Status DC Potassium Chloride/Water 100 ml @ 50 mls/hr Q2H IV Last administered on 07/27/19at 12:23; Start 07/27/19 at 09:00; Stop 07/27/19 at 12:59; Status DC Furosemide (Lasix) 40 mg DAILY PO Last administered on 07/29/19at 07:56; Start 07/28/19 at 09:00; Stop 07/29/19 at 09:08; Status DC Potassium Chloride (Klor-Con) 20 meq BID PO Last administered on 07/29/19at 07:56; Start 07/27/19 at 21:00 Metoprolol Succinate (Toprol Xl) 25 mg DAILY PO Last administered on 07/29/19 07:57; Start 07/28/19 at 09:00 Pantoprazole Sodium (Protonix) 40 mg DAILYAC PO Last administered on 07/29/19at 05:22; Start 07/28/19 at 07:30 Acetaminophen (Tylenol) 650 mg PRN Q6HRS PRN PO MILD PAIN / TEMP > 100.3'F Last administered on 07/28/19at 13:11; Start 07/27/19 at 12:00 Oxycodone HCl (Roxicodone) 15 mg PRN BID PRN PO SEVERE PAIN 7-10 Last administered on 07/27/19at 20:53; Start 07/27/19 at 12:00 Sodium Phosphate 15 mmol/Sodium Chloride 105 ml @ 105 mls/hr 1X ONCE IV Last administered on 07/27/19at 15:02; Start 07/27/19 at 12:30; Stop 07/27/19 at 13:29; Status DC Potassium Chloride (Klor-Con) 40 meq 1X ONCE PO Last administered on 07/28/19at 11:41; Start 07/28/19 at 11:15; Stop 07/28/19 at 11:16; Status DC Ticagrelor (Brilinta) 90 mg BID PO Last administered on 07/29/19at 07:56; Start 07/28/19 at 12:45 Potassium Chloride (Klor-Con) 40 meq 1X ONCE PO ; Start 07/29/19 at 09:15; Stop 07/29/19 at 09:16; Status DC Fluticasone Propionate (Flonase) 2 spray DAILY NS ; Start 07/30/19 at 09:00 Active Scripts Active Toprol XL (Metoprolol Succinate) 50 Mg Tab.er.24h 50 Mg PO DAILY Metolazone 2.5 Mg Tablet 2.5 Mg PO QODAY Furosemide 40 Mg Tablet 40 Mg PO [id number] Klor-Con M20 (Potassium Chloride) 20 Meq Tab.er.prt 20 Meq PO BIDWMEALS Amiodarone Hcl 200 Mg Tablet 200 Mg PO DAILY Eliquis (Apixaban) 5 Mg Tablet 5 Mg PO BID Reported Acetaminophen 325 Mg Tablet 325 Mg PO Q6HRS Dicyclomine Hcl 10 Mg Capsule 1 Cap PO PRN TID PRN Nexium Capsule (Esomeprazole Magnesium) 40 Mg Capsule.dr 40 Mg PO DAILYAC Oxycodone Hcl Immed.release (Oxycodone Hcl) 15 Mg Tablet 15 Mg PO PRN Q12HR PRN Alprazolam 1 Mg Tablet 1 Tab PO BID Vitals/I & O Vital Sign - Last 24 Hours 07/28/19 07/28/19 07/28/19 07/28/19 14:23 18:09 19:25 23:13 Temp 97.6 98.0 97.8 97.6 98.0 97.8 Pulse 67 65 63 Resp 20 18 16 B/P (MAP) 126/64 (84) 134/75 (94) 136/72 (93) Pulse Ox 97 96 96 O2 Delivery Room Air Room Air Room Air Room Air 07/29/19 07/29/19 07/29/1907/28/20 03:01 07:07 07:45 07:55 Temp 97.8 97.7 97.8 97.7 Pulse 67 61 61 Resp 18 16 B/P (MAP) 144/63 (90) 142/69 (93) 142/69 Pulse Ox 95 95 O2 Delivery Room Air Room Air Room Air 07/29/19 07/29/19 07/29/19 07:55 07:57 10:34 Temp 97.6 97.6 Pulse 61 61 62 Resp 18 B/P (MAP) 142/69 142/69 128/68 (88) Pulse Ox 96 O2 Delivery Room Air Intake and Output 07/28/19 07/28/19 07/29/19 15:00 23:00 07:00 Intake Total 60 ml 100 ml Output Total 1350 ml 200 ml 1300 ml Balance -1350 ml -140 ml -1200 ml RICK CAROLINA MD July 29, 2019 11:52
--- NOTE | 2019-07-29 12:48 | PDOC ---
SUBJECTIVE ROS siting up in chair, eating lunch OBJECTIVE Vital Signs Vital Signs Date Time Temp Pulse Resp B/P (MAP) Pulse Ox O2 Delivery O2 Flow Rate FiO2 07/29/19 10:34 97.6 62 18 128/68 (88) 96 Room Air 97.6 07/28/19 08:00 2.0 I & 0 Intake and Output 07/29/19 07:00 Intake Total 160 ml Output Total 2850 ml Balance -2690 ml Intake Oral 160 ml Output Urine Total 2850 ml # Bowel Movements 3 PHYSICAL EXAM Physical Exam General: NAD HEENT:Om moist Abdomen: Soft Heart: Regular rate, Normal S1, Normal S2 Extremities: trace edema LE Lungs: decreased at bases Neuro: grossly normal Skin: No rashes DIAGNOSIS/ASSESSMENT Assessment & Plan DONTAE - stable Cr was 3.3 , down to 1.6 , stable Supportive care, avoid nephrotoxins, Strict I/O, Daily BMP HypKalemia- replace as needed Gross hematuria- better, Off Eliquis Acute Hypoxemia Resp failure - s/p Extubation Acute CHF- compensated AFIB-sp recent Cardioversion HTN-stable S/P CODE BLUE COMMENT/RELEVANT DATA Meds Current Medications Medications (Trade) Dose Ordered Sig/Chance Start Time Stop Time Status Last Admin Dose Admin Acetaminophen (Tylenol) 650 mg PRN Q6HRS PRN 07/27/19 12:00 07/28/19 13:11 650 MG Alprazolam (Xanax) 1 mg BID 07/17/19 21:00 07/29/19 07:55 1 MG Alteplase, Recombinant (Cathflo For Central Catheter Clearance) 1 mg 1X ONCE 07/27/19 08:00 07/27/19 08:15 DC 07/27/19 08:43 1 MG Amino Acids/ Glycerin/ Electrolytes 1,000 ml @ 50 mls/hr Q20H 07/23/19 13:15 07/23/19 17:04 DC Amiodarone HCl (Cordarone) 200 mg 1X ONCE 07/21/19 15:15 07/21/19 15:16 DC 07/21/19 15:38 200 MG Amiodarone HCl 150 mg/Dextrose 103 ml @ 618 mls/hr 1X ONCE 07/19/19 12:00 07/19/19 12:09 DC 07/19/19 12:15 618 MLS/HR Amiodarone HCl 450 mg/Dextrose 259 ml @ 0 mls/hr CONT PRN 07/20/19 10:00 Cancel Amlodipine Besylate (Norvasc) 5 mg DAILY 07/27/19 09:00 07/29/19 07:55 5 MG Apixaban (Eliquis) 5 mg BID 07/17/19 21:00 07/23/19 10:05 DC 07/23/19 08:17 5 MG Aspirin (Aspirin Chewable) 81 mg [id number] 07/20/19 08:00 07/29/19 07:57 81 MG Aspirin (Aspirin Rectal Supp) 300 mg 1X ONCE 07/17/19 05:45 07/17/19 05:46 DC 07/17/19 06:01 300 MG Atropine Sulfate (ATROPINE 0.5mg SYRINGE) 0.5 mg PRN Q5MIN PRN 07/17/19 11:00 07/25/19 18:27 DC Bumetanide (Bumex) 1 mg 1X ONCE 07/17/19 06:00 07/17/19 06:01 DC 07/17/19 06:00 1 MG Desmopressin Acetate (Ddavp) 4 mcg BID 07/22/19 14:00 07/23/19 09:01 DC 07/23/19 10:20 4 MCG Dexmedetomidine HCl 400 mcg/ Sodium Chloride 100 ml @ 0 mls/hr CONT PRN 07/17/19 11:00 07/25/19 18:27 DC 07/20/19 13:31 8.5 MLS/HR Dextrose 1,000 ml @ 75 mls/hr [id number] 07/23/19 17:00 07/24/19 11:06 DC 07/23/19 17:09 75 MLS/HR Digoxin (Lanoxin) 250 mcg 1X ONCE 07/19/19 04:10 07/19/19 06:15 DC 07/19/19 04:15 250 MCG Epinephrine HCl (EPINEPHrine SYRINGE) 4 mg STK-MED ONCE 07/18/19 16:08 07/19/19 16:08 DC Epinephrine HCl 5 mg/Sodium Chloride 255 ml @ 32.926 mls/ hr CONT PRN 07/18/19 14:00 07/24/19 11:06 DC Etomidate (Amidate) 20 mg 1X ONCE 07/17/19 04:45 07/17/19 04:46 DC 07/17/19 04:43 20 MG Fluticasone Propionate (Flonase) 2 spray DAILY 07/30/19 09:00 Furosemide (Lasix) 40 mg DAILY 07/28/19 09:00 07/29/19 09:08 DC 07/29/19 07:56 40 MG Haloperidol Lactate (Haldol Inj) 2 mg 1X ONCE 07/27/19 01:15 07/27/19 01:16 DC 07/27/19 01:40 2 MG Heparin Sodium (Porcine) (Heparin Sodium) 7,000 unit 1X ONCE 07/18/19 14:45 07/18/19 14:52 DC 07/18/19 14:45 7,000 UNIT Heparin Sodium/ Sodium Chloride 500 ml @ As Directed STK-MED ONCE 07/18/19 15:11 07/18/19 15:11 DC Heparin Sodium/ Sodium Chloride (HEPARIN for ARTERIAL LINE FLUSH) 1,000 unit 1X ONCE 07/18/19 14:45 07/18/19 14:52 DC 07/18/19 14:45 1,000 UNIT Info (Anti-Coagulation Monitoring By Pharmacy) 1 each PRN DAILY PRN 07/18/19 08:00 07/20/19 14:42 1 EACH Info (Tpn Per Pharmacy) 1 each PRN DAILY PRN 07/22/19 08:45 Cancel Insulin Human Lispro (HumaLOG) 0-6 UNITS Q6HRS 07/17/19 12:00 07/23/19 10:06 DC Iodixanol (Visipaque 320) 100 ml 1X ONCE 07/18/19 14:45 07/18/19 14:52 DC 07/18/19 14:45 104 ML Lansoprazole (Prevacid) 30 mg DAILY 07/18/19 09:00 07/27/19 11:55 DC 07/27/19 08:36 30 MG Lidocaine HCl (Lidocaine 1% 20ml Vial) 20 ml 1X ONCE 07/18/19 14:45 07/18/19 14:52 DC 07/18/19 14:45 10 ML Lidocaine HCl (Lidocaine HCl 2% Abboject) 80 mg 1X ONCE 07/20/19 10:00 07/20/19 10:03 DC 07/20/19 10:11 80 MG Lidocaine HCl (Xylocaine-Mpf 1% 2ml Vial) 2 ml STK-MED ONCE 07/18/19 13:05 07/18/19 13:05 DC Lidocaine HCl/ Dextrose 500 ml @ 0 mls/hr CONT PRN 07/20/19 10:00 07/21/19 15:07 DC 07/20/19 10:15 15 MLS/HR Linezolid/Dextrose 300 ml @ 300 mls/hr Q12HR 07/18/19 09:00 07/20/19 08:25 DC 07/19/19 21:29 300 MLS/HR Magnesium Hydroxide (Milk Of Magnesia) 2,400 mg PRN DAILY PRN 07/17/19 10:30 Magnesium Sulfate 50 ml @ 25 mls/hr 1X ONCE 07/26/19 09:45 07/26/19 11:44 DC 07/26/19 14:12 25 MLS/HR Magnesium Sulfate/ Dextrose 100 ml @ 100 mls/hr 1X ONCE 07/20/19 09:45 07/20/19 10:44 DC 07/20/19 11:43 100 MLS/HR Metolazone (Zaroxolyn) 2.5 mg QODAY 07/19/19 09:00 07/18/19 10:36 DC Metoprolol Succinate (Toprol Xl) 25 mg DAILY 07/28/19 09:00 07/29/19 07:57 25 MG Metoprolol Tartrate (Lopressor) 12.5 mg Q12HR 07/23/19 21:00 07/27/19 11:55 DC 07/27/19 08:38 12.5 MG Midazolam HCl 100 ml @ 0 mls/hr CONT PRN 07/17/19 07:15 07/25/19 18:27 DC 07/22/19 23:41 5 MLS/HR Milrinone Lactate/ Dextrose 100 ml @ 0 mls/hr CONT PRN 07/18/19 07:15 07/23/19 10:03 DC 07/20/19 02:37 4.2 MLS/HR Morphine Sulfate 30 ml @ 0 mls/hr CONT PRN PRN 07/18/19 12:45 07/25/19 18:27 DC 07/25/19 02:46 2 MLS/HR Morphine Sulfate (Morphine Sulfate) 4 mg PRN Q1HR PRN 07/17/19 11:15 07/27/19 11:55 DC 07/18/19 13:53 4 MG Nitroglycerin (Nitrostat) 0.4 mg 1X ONCE 07/17/19 04:30 07/17/19 04:43 DC 07/17/19 04:29 0.4 MG Nitroglycerin/ Dextrose 250 ml @ 1.5 mls/hr CONT PRN 07/24/19 08:00 07/27/19 11:55 DC 07/24/19 08:05 1.5 MLS/HR Norepinephrine Bitartrate 32 mg/ Dextrose 282 ml @ 0 mls/hr CONT PRN 07/18/19 11:15 07/23/19 10:05 DC 07/19/19 10:39 9 MLS/HR Norepinephrine Bitartrate 8 mg/ Dextrose 258 ml @ 0 mls/hr CONT PRN 07/17/19 06:30 07/18/19 13:40 DC 07/17/19 21:52 11 MLS/HR Ondansetron HCl (Zofran) 4 mg PRN Q8HRS PRN 07/17/19 06:00 07/18/19 05:59 DC Oxycodone HCl (Roxicodone) 15 mg PRN BID PRN 07/27/19 12:00 07/27/19 20:53 15 MG Pantoprazole Sodium (Protonix) 40 mg DAILYAC 07/28/19 07:30 07/29/19 05:22 40 MG Piperacillin Sod/ Tazobactam Sod 2.25 gm/Sodium Chloride 50 ml @ 100 mls/hr Q6HRS 07/17/19 18:00 07/22/19 08:47 DC 07/22/19 05:46 100 MLS/HR Piperacillin Sod/ Tazobactam Sod 3.375 gm/Sodium Chloride 50 ml @ 100 mls/hr Q8HRS 07/25/19 14:00 07/26/19 10:16 DC 07/26/19 05:33 100 MLS/HR Piperacillin Sod/ Tazobactam Sod 4.5 gm/Sodium Chloride 100 ml @ 200 mls/hr 1X ONCE 07/17/19 06:00 07/17/19 06:29 DC 07/17/19 11:14 200 MLS/HR Potassium Bicarbonate (Potassium Effervescent Tablet) 40 meq 1X ONCE 07/24/19 12:00 07/24/19 12:01 DC 07/24/19 11:54 40 MEQ Potassium Chloride/Water 100 ml @ 50 mls/hr Q2H 07/27/19 09:00 07/27/19 12:59 DC 07/27/19 12:23 50 MLS/HR Potassium Chloride (Klor-Con) 40 meq 1X ONCE 07/29/19 09:15 07/29/19 09:16 DC 07/29/19 11:55 40 MEQ Propofol 100 ml @ 0 mls/hr CONT PRN 07/17/19 05:15 07/25/19 18:27 DC 07/24/19 18:33 10.9 MLS/HR Quetiapine Fumarate (SEROquel) 25 mg PRN Q6HRS PRN 07/27/19 01:00 07/27/19 01:21 25 MG Rocuronium [place] (Zemuron) 50 mg 1X ONCE 07/17/19 04:45 07/17/19 04:46 DC 07/17/19 04:44 50 MG Sodium Chloride 90 meq/Potassium Chloride 50 meq/ Potassium Phosphate 13.6 mmol/Magnesium Sulfate 10 meq/ Calcium Gluconate 10 meq/ Multivitamins 10 ml/Chromium/ Copper/Manganese/ Seleni/Zn 1 ml/ Total Parenteral Nutrition/Amino Acids/Dextrose/ Fat Emulsion Intravenous 1,512 ml @ 63 mls/hr TPN CONT 07/21/19 22:00 07/22/19 09:05 DC Sodium Phosphate 15 mmol/Sodium Chloride 105 ml @ 105 mls/hr 1X ONCE 07/27/19 12:30 07/27/19 13:29 DC 07/27/19 15:02 105 MLS/HR Ticagrelor (Brilinta) 90 mg BID 07/28/19 12:45 07/29/19 07:56 90 MG Vancomycin HCl (Vanco Per Pharmacy) 1 each PRN DAILY PRN 07/17/19 06:00 07/17/19 10:41 DC 07/17/19 06:43 1 EACH Vancomycin HCl (Vancomycin Trough Level) 1 each 1X ONCE 07/19/19 06:00 07/19/19 06:01 Cancel Vancomycin HCl 1.75 gm/Sodium Chloride 500 ml @ 250 mls/hr Q24H 07/18/19 06:30 07/17/19 10:38 DC Vancomycin HCl 2 gm/Sodium Chloride 500 ml @ 250 mls/hr 1X ONCE 07/17/19 06:00 07/17/19 07:59 DC 07/17/19 06:15 250 MLS/HR Vecuronium [place] (Norcuron Bolus) 20 mg STK-MED ONCE 07/18/19 12:00 07/19/19 08:48 DC Lab Laboratory Tests Test 07/29/19 05:00 Sodium Level 142 mmol/L (136-145) Potassium Level 3.2 mmol/L (3.5-5.1) Chloride Level 106 mmol/L (98-107) Carbon Dioxide Level 31 mmol/L (21-32) Anion Gap 5 (6-14) Blood Urea Nitrogen 34 mg/dL (8-26) Creatinine 1.6 mg/dL (0.7-1.3) Estimated GFR (Cockcroft-Gault) 42.6 Glucose Level 97 mg/dL (70-99) Calcium Level 7.9 mg/dL (8.5-10.1) Phosphorus Level 2.5 mg/dL (2.6-4.7) Magnesium Level 2.0 mg/dL (1.8-2.4) Results All relevant outside records, renal labs, imaging studies, telemetry/EKG's were reviewed. GYPSY COLEMAN MD July 29, 2019 12:48
[2019-07-29 14:34] VITALS: BP 140/64
[2019-07-29] MEDS: oxyCODONE IR 5 MG TABLET PO PRN ×2 (14:47→21:46)
[2019-07-29 19:29] VITALS: BP 139/71
[2019-07-29 23:40] VITALS: BP 161/76
[2019-07-30 03:50] VITALS: BP 170/80
[2019-07-30 07:00] VITALS: BP 139/75
[2019-07-30 07:21] LABS: CALCIUM 7.7 mg/dL (8.5-10.1); CREATININE 1.5 mg/dL (0.7-1.3); GFR 45.9; POTASSIUM 3.2 mmol/L (3.5-5.1)
[2019-07-30] MEDS: ASPIRIN CHEWABLE 81 MG TABLET. PO SCH (08:30)
[2019-07-30] MEDS: FLUTICASONE 50MCG/NASAL SPRAY 16GM BOTTLE. NS SCH (08:30)
[2019-07-30] MEDS: TICAGRELOR 90 MG TABLET. PO SCH (08:30)
[2019-07-30] MEDS: PANTOPRAZOLE 40 MG TABLET.DR. PO SCH (08:30)
[2019-07-30] MEDS: ALPRAZolam 0.5 MG TABLET FT SCH ×2 (08:30→21:07)
[2019-07-30] MEDS: AMIODARONE HCL 200 MG TABLET. PO SCH (08:31)
[2019-07-30] MEDS: METOPROLOL SUCC 24HR ER 25 MG TAB.ER.24H. PO SCH (08:31)
[2019-07-30] MEDS: amLODIPine BESYLATE 5 MG TABLET FT SCH (08:32)
[2019-07-30 11:02] VITALS: BP 148/66
--- NOTE | 2019-07-30 11:08 | PDOC ---
PROGRESS NOTES Subjective Subjective feels well. discussed with dr. robertson and will switch to plavix and eliquis and d/c aspirin and brillinta. no hemturia and voiding well. jade out. lab reviewed. magnesium low 1.7 and potassium low 3.2 will replete and resume furosemide tomorrow. Objective Objective Vital Signs Date Time Temp Pulse Resp B/P (MAP) Pulse Ox O2 Delivery O2 Flow Rate FiO2 07/30/19 11:02 98.1 66 18 148/66 (93) 95 Room Air 98.1 07/28/19 08:00 2.0 Intake and Output 07/30/19 07:00 Intake Total 2390 ml Output Total 575 ml Balance 1815 ml Intake Oral 2390 ml Output Urine Total 575 ml # Voids 1 # Bowel Movements 4 Physical Exam Abdomen: Soft Heart: Regular rate, Normal S1, Normal S2 Extremities: Other (1 plus edema legs) General: Alert HEENT: Atraumatic Lungs: Clear to auscultation Neuro: Normal speech Psych/Mental Status: Mental status NL Skin: No rashes Assessment Assessment ProblemsAcute pulmonary edema. compensated 2. Acute on chronic systolic congestive heart failure.compensated 3. Severe cardiomyopathy with left ventricular ejection fraction improved to 40-45% 07/19 per echo 4. Acute hypoxic and hypercarbic respiratory failure, resolved 5. Paroxysmal atrial fibrillation, currently in NSR 6. sepsis with shock, shock resolved 7. chronic kidney disease stage 3. 8. Gastroesophageal reflux disease. 9. bilateral lung infiltrates. suspect pneumonia treated hypokalemia hypomagnesemia VT cardiac arrest 07/17 and again 07/19 PCI RCA 07/17 hypertension gross hematuira resolved hemoptysis resolved critical illness myopathy Medical Problems: (1) Acute exacerbation of CHF (congestive heart failure) Status: Acute (2) Acute on chronic renal insufficiency Status: Acute (3) Elevated troponin I level Status: Acute (4) Septic shock Status: Acute (5) Suspected COVID-19 virus infection Status: Acute Plan Plan of Care start plavix and eliquis d/c aspirin and brillinta replete kcl iv magnesium today lab tomorrow PT and OT start furosemide tomorrow Comment Review of Relevant I have reviewed the following items juan (where applicable) has been applied. Labs Laboratory Tests Test 07/29/19 05:00 07/30/19 06:30 Sodium Level 142 mmol/L (136-145) 141 mmol/L (136-145) Potassium Level 3.2 mmol/L (3.5-5.1) 3.2 mmol/L (3.5-5.1) Chloride Level 106 mmol/L (98-107) 104 mmol/L (98-107) Carbon Dioxide Level 31 mmol/L (21-32) 29 mmol/L (21-32) Anion Gap 5 (6-14) 8 (6-14) Blood Urea Nitrogen 34 mg/dL (8-26) 30 mg/dL (8-26) Creatinine 1.6 mg/dL (0.7-1.3) 1.5 mg/dL (0.7-1.3) Estimated GFR (Cockcroft-Gault) 42.6 45.9 Glucose Level 97 mg/dL (70-99) 94 mg/dL (70-99) Calcium Level 7.9 mg/dL (8.5-10.1) 7.7 mg/dL (8.5-10.1) Phosphorus Level 2.5 mg/dL (2.6-4.7) Magnesium Level 2.0 mg/dL (1.8-2.4) 1.7 mg/dL (1.8-2.4) Laboratory Tests Test 07/30/19 06:30 Sodium Level 141 mmol/L (136-145) Potassium Level 3.2 mmol/L (3.5-5.1) Chloride Level 104 mmol/L (98-107) Carbon Dioxide Level 29 mmol/L (21-32) Anion Gap 8 (6-14) Blood Urea Nitrogen 30 mg/dL (8-26) Creatinine 1.5 mg/dL (0.7-1.3) Estimated GFR (Cockcroft-Gault) 45.9 Glucose Level 94 mg/dL (70-99) Calcium Level 7.7 mg/dL (8.5-10.1) Magnesium Level 1.7 mg/dL (1.8-2.4) Microbiology 07/17/19 Urine Culture - Final, Complete 07/17/19 Urine Culture Result 1 (BOYD) - Final, Complete 07/17/19 Blood Culture - Final, Complete NO GROWTH AFTER 5 DAYS 07/17/19 Nose/Throat Culture - Final, Complete 07/17/19 - Final, Complete Medications Current Medications Nitroglycerin (Nitrostat) 0.4 mg STK-MED ONCE SL ; Start 07/17/19 at 04:28; Stop 07/17/19 at 04:28; Status DC Nitroglycerin (Nitrostat) 0.4 mg 1X ONCE SL Last administered on 07/17/19at 04:29; Start 07/17/19 at 04:30; Stop 07/17/19 at 04:43; Status DC Nitroglycerin/ Dextrose 250 ml @ 0 mls/hr 1X ONCE IV Last administered on 07/17/19at 04:47; Start 07/17/19 at 04:45; Stop 07/17/19 at 04:46; Status DC Rocuronium [place] (Zemuron) 50 mg 1X ONCE IV Last administered on 07/17/19at 04:44; Start 07/17/19 at 04:45; Stop 07/17/19 at 04:46; Status DC Etomidate (Amidate) 20 mg 1X ONCE IV Last administered on 07/17/19at 04:43; Start 07/17/19 at 04:45; Stop 07/17/19 at 04:46; Status DC Propofol 100 ml @ 0 mls/hr CONT PRN IV SEE PROTOCOL Last administered on 07/24/19at 18:33; Start 07/17/19 at 05:15; Stop 07/25/19 at 18:27; Status DC Aspirin (Aspirin Rectal Supp) 300 mg 1X ONCE IN Last administered on 07/17/19at 06:01; Start 07/17/19 at 05:45; Stop 07/17/19 at 05:46; Status DC Bumetanide (Bumex) 1 mg 1X ONCE IV Last administered on 07/17/19at 06:00; Start 07/17/19 at 06:00; Stop 07/17/19 at 06:01; Status DC Piperacillin Sod/ Tazobactam Sod 4.5 gm/Sodium Chloride 100 ml @ 200 mls/hr 1X ONCE IV Last administered on 07/17/19at 11:14; Start 07/17/19 at 06:00; Stop 07/17/19 at 06:29; Status DC Vancomycin HCl (Vanco Per Pharmacy) 1 each PRN DAILY PRN MC SEE COMMENTS Last administered on 07/17/19at 06:43; Start 07/17/19 at 06:00; Stop 07/17/19 at 10:41; Status DC Vancomycin HCl 2 gm/Sodium Chloride 500 ml @ 250 mls/hr 1X ONCE IV Last administered on 07/17/19at 06:15; Start 07/17/19 at 06:00; Stop 07/17/19 at 07:59; Status DC Ondansetron HCl (Zofran) 4 mg PRN Q8HRS PRN IV NAUSEA/VOMITING; Start 07/17/19 at 06:00; Stop 07/18/19 at 05:59; Status DC Norepinephrine Bitartrate 8 mg/ Dextrose 258 ml @ 0 mls/hr CONT PRN IV SEE I/O RECORD Last administered on 07/17/19at 21:52; Start 07/17/19 at 06:30; Stop 07/18/19 at 13:40; Status DC Vancomycin HCl 1.75 gm/Sodium Chloride 500 ml @ 250 mls/hr Q24H IV ; Start 07/18/19 at 06:30; Stop 07/17/19 at 10:38; Status DC Vancomycin HCl (Vancomycin Trough Level) 1 each 1X ONCE MC ; Start 07/19/19 at 06:00; Stop 07/19/19 at 06:01; Status Cancel Morphine Sulfate (Morphine Sulfate) 6 mg 1X ONCE IV Last administered on 07/17/19at 07:08; Start 07/17/19 at 07:15; Stop 07/17/19 at 07:16; Status DC Midazolam HCl 100 ml @ 0 mls/hr CONT PRN IV SEE PROTOCOL Last administered on 07/22/19at 23:41; Start 07/17/19 at 07:15; Stop 07/25/19 at 18:27; Status DC Morphine Sulfate (Morphine Sulfate) 4 mg PRN Q1HR PRN IV SEE COMMENTS.; Start 07/17/19 at 08:00; Stop 07/17/19 at 10:38; Status DC Heparin Sodium (Porcine) (Heparin Sodium) 5,000 unit Q12HR SQ ; Start 07/17/19 at 21:00; Stop 07/17/19 at 10:38; Status DC Amiodarone HCl (Cordarone) 200 mg DAILY PO Last administered on 07/21/19at 09:04; Start 07/18/19 at 09:00; Stop 07/21/19 at 15:07; Status DC Metolazone (Zaroxolyn) 2.5 mg QODAY PO ; Start 07/19/19 at 09:00; Stop 07/18/19 at 10:36; Status DC Potassium Chloride (Klor-Con) 20 meq BIDWMEALS PO Last administered on 07/17/19at 16:34; Start 07/17/19 at 17:00; Stop 07/18/19 at 10:36; Status DC Furosemide (Lasix) 40 mg [id number] IVP Last administered on 07/18/19at 08:03; Start 07/17/19 at 14:00; Stop 07/20/19 at 11:02; Status DC Morphine Sulfate (Morphine Sulfate) 2 mg PRN Q4HRS PRN IV SEE COMMENTS.; Start 07/17/19 at 10:30; Status Cancel Apixaban (Eliquis) 5 mg BID FT Last administered on 07/23/19at 08:17; Start 07/17/19 at 21:00; Stop 07/23/19 at 10:05; Status DC Insulin Human Lispro (HumaLOG) 0-6 UNITS Q6HRS SQ ; Start 07/17/19 at 12:00; Stop 07/23/19 at 10:06; Status DC Lansoprazole (Prevacid) 30 mg DAILY FT Last administered on 07/27/19at 08:36; Start 07/18/19 at 09:00; Stop 07/27/19 at 11:55; Status DC Acetaminophen (Tylenol) 650 mg PRN Q6HRS PRN FT MILD PAIN / TEMP > 100.3'F; Start 07/17/19 at 10:30; Stop 07/27/19 at 11:55; Status DC Alprazolam (Xanax) 1 mg BID FT Last administered on 07/30/19at 08:30; Start 07/17/19 at 21:00 Magnesium Hydroxide (Milk Of Magnesia) 2,400 mg PRN DAILY PRN FT CONSTIPATION; Start 07/17/19 at 10:30 Dexmedetomidine HCl 400 mcg/ Sodium Chloride 100 ml @ 0 mls/hr CONT PRN IV PER PROTOCOL Last administered on 07/20/19at 13:31; Start 07/17/19 at 11:00; Stop 07/25/19 at 18:27; Status DC Sodium Chloride 500 ml @ 500 mls/hr 1X PRN PRN IV SEE COMMENTS; Start 07/17/19 at 11:00; Stop 07/22/19 at 12:54; Status DC Atropine Sulfate (ATROPINE 0.5mg SYRINGE) 0.5 mg PRN Q5MIN PRN IV SEE COMMENTS; Start 07/17/19 at 11:00; Stop 07/25/19 at 18:27; Status DC Morphine Sulfate (Morphine Sulfate) 2 mg PRN Q1HR PRN IV SEE COMMENTS. Last administered on 07/17/19at 13:37; Start 07/17/19 at 11:15; Stop 07/27/19 at 11:55; Status DC Morphine Sulfate (Morphine Sulfate) 4 mg PRN Q1HR PRN IV SEE COMMENTS. Last administered on 07/18/19at 13:53; Start 07/17/19 at 11:15; Stop 07/27/19 at 11:55; Status DC Piperacillin Sod/ Tazobactam Sod 2.25 gm/Sodium Chloride 50 ml @ 100 mls/hr Q6HRS IV Last administered on 07/22/19at 05:46; Start 07/17/19 at 18:00; Stop 07/22/19 at 08:47; Status DC Magnesium Sulfate 50 ml @ 25 mls/hr 1X ONCE IV Last administered on 07/18/19at 08:04; Start 07/18/19 at 07:15; Stop 07/18/19 at 09:14; Status DC Milrinone Lactate/ Dextrose 100 ml @ 0 mls/hr CONT PRN IV SEE I/O RECORD Last administered on 07/20/19at 02:37; Start 07/18/19 at 07:15; Stop 07/23/19 at 10:03; Status DC Linezolid/Dextrose 300 ml @ 300 mls/hr Q12HR IV Last administered on 07/19/19at 21:29; Start 07/18/19 at 09:00; Stop 07/20/19 at 08:25; Status DC Info (Anti-Coagulation Monitoring By Pharmacy) 1 each PRN DAILY PRN MC SEE COMMENTS Last administered on 07/20/19at 14:42; Start 07/18/19 at 08:00 Vecuronium [place] (Norcuron Bolus) 10 mg STK-MED ONCE IV ; Start 07/18/19 at 09:12; Stop 07/18/19 at 09:12; Status DC Potassium Chloride/Water 100 ml @ 100 mls/hr 1X ONCE IV Last administered on 07/18/19at 10:04; Start 07/18/19 at 09:45; Stop 07/18/19 at 10:44; Status DC Magnesium Sulfate 50 ml @ 25 mls/hr 1X ONCE IV Last administered on 07/18/19at 10:03; Start 07/18/19 at 09:45; Stop 07/18/19 at 11:44; Status DC Norepinephrine Bitartrate 32 mg/ Dextrose 282 ml @ 0 mls/hr CONT PRN IV SEE I/O RECORD Last administered on 07/19/19at 10:39; Start 07/18/19 at 11:15; Stop 07/23/19 at 10:05; Status DC Morphine Sulfate 30 ml @ 0 mls/hr CONT PRN PRN IV PER PROTOCOL Last administered on 07/25/19at 02:46; Start 07/18/19 at 12:45; Stop 07/25/19 at 18:27; Status DC Lidocaine HCl (Xylocaine-Mpf 1% 2ml Vial) 2 ml STK-MED ONCE .ROUTE ; Start 07/18/19 at 13:05; Stop 07/18/19 at 13:05; Status DC Iodixanol (Visipaque 320) 100 ml STK-MED ONCE .ROUTE ; Start 07/18/19 at 13:05; Stop 07/18/19 at 13:06; Status DC Heparin Sodium/ Sodium Chloride 1,500 ml @ As Directed STK-MED ONCE .ROUTE ; Start 07/18/19 at 13:05; Stop 07/18/19 at 13:06; Status DC Vecuronium [place] (Norcuron Bolus) 10 mg STK-MED ONCE IV ; Start 07/18/19 at 13:49; Stop 07/18/19 at 13:49; Status DC Vecuronium [place] (Norcuron Bolus) 6 mg PRN Q4HRS PRN IV ANXIETY / AGITATION; Start 07/18/19 at 14:00; Stop 07/25/19 at 18:27; Status DC Epinephrine HCl 5 mg/Sodium Chloride 255 ml @ 32.926 mls/ hr CONT PRN IV SEE I/O RECORD; Start 07/18/19 at 14:00; Stop 07/24/19 at 11:06; Status DC Lidocaine HCl (Lidocaine 1% 20ml Vial) 20 ml STK-MED ONCE .ROUTE ; Start 07/18/19 at 14:11; Stop 07/18/19 at 14:11; Status DC Heparin Sodium (Porcine) (Heparin Sodium) 10,000 unit STK-MED ONCE .ROUTE ; Start 07/18/19 at 14:27; Stop 07/18/19 at 14:28; Status DC Heparin Sodium/ Sodium Chloride (HEPARIN for ARTERIAL LINE FLUSH) 1,000 unit 1X ONCE IART Last administered on 07/18/19at 14:45; Start 07/18/19 at 14:45; Stop 07/18/19 at 14:52; Status DC Heparin Sodium/ Sodium Chloride (HEPARIN for ARTERIAL LINE FLUSH) 1,000 unit 1X ONCE IART Last administered on 07/18/19at 14:45; Start 07/18/19 at 14:45; Stop 07/18/19 at 14:52; Status DC Iodixanol (Visipaque 320) 100 ml 1X ONCE IART Last administered on 07/18/19at 14:45; Start 07/18/19 at 14:45; Stop 07/18/19 at 14:52; Status DC Heparin Sodium (Porcine) (Heparin Sodium) 7,000 unit 1X ONCE IV Last administered on 07/18/19at 14:45; Start 07/18/19 at 14:45; Stop 07/18/19 at 14:52; Status DC Lidocaine HCl (Lidocaine 1% 20ml Vial) 20 ml 1X ONCE INJ Last administered on 07/18/19at 14:45; Start 07/18/19 at 14:45; Stop 07/18/19 at 14:52; Status DC Heparin Sodium/ Sodium Chloride 500 ml @ As Directed STK-MED ONCE .ROUTE ; Start 07/18/19 at 15:11; Stop 07/18/19 at 15:11; Status DC Ticagrelor (Brilinta) 180 mg 1X ONCE PO Last administered on 07/18/19at 16:08; Start 07/18/19 at 16:00; Stop 07/18/19 at 16:01; Status DC Digoxin (Lanoxin) 250 mcg 1X ONCE IV ; Start 07/19/19 at 06:15; Stop 07/19/19 at 06:16; Status Cancel Digoxin (Lanoxin) 250 mcg 1X ONCE IV Last administered on 07/19/19at 05:15; Start 07/19/19 at 05:15; Stop 07/19/19 at 06:11; Status DC Digoxin (Lanoxin) 250 mcg 1X ONCE IV Last administered on 07/19/19at 08:48; Start 07/19/19 at 09:00; Stop 07/19/19 at 09:01; Status DC Digoxin (Lanoxin) 250 mcg 1X ONCE IV Last administered on 07/19/19at 04:15; Start 07/19/19 at 04:10; Stop 07/19/19 at 06:15; Status DC Vecuronium [place] (Norcuron Bolus) 20 mg STK-MED ONCE IV ; Start 07/18/19 at 12:00; Stop 07/19/19 at 08:48; Status DC Potassium Chloride/Water 100 ml @ 100 mls/hr 1X ONCE IV Last administered on 07/19/19at 12:13; Start 07/19/19 at 11:45; Stop 07/19/19 at 12:44; Status DC Amiodarone HCl 150 mg/Dextrose 103 ml @ 618 mls/hr 1X ONCE IV Last administe red on 07/19/19at 12:15; Start 07/19/19 at 12:00; Stop 07/19/19 at 12:09; Status DC Metoprolol Tartrate (Lopressor) 12.5 mg Q6HRS PO Last administered on 07/23/19at 05:54; Start 07/19/19 at 12:00; Stop 07/23/19 at 10:05; Status DC Amiodarone HCl (Cordarone) 300 mg STK-MED ONCE .ROUTE ; Start 07/18/19 at 16:08; Stop 07/19/19 at 16:08; Status DC Epinephrine HCl (EPINEPHrine SYRINGE) 4 mg STK-MED ONCE .ROUTE ; Start 07/18/19 at 16:08; Stop 07/19/19 at 16:08; Status DC Aspirin (Aspirin Chewable) 81 mg 1X ONCE PO Last administered on 07/19/19at 17:28; Start 07/19/19 at 17:00; Stop 07/19/19 at 17:06; Status DC Aspirin (Aspirin Chewable) 81 mg [id number] PO Last administered on 07/30/19at 08:30; Start 07/20/19 at 08:00 Ticagrelor (Brilinta) 90 mg BID PO Last administered on 07/25/19at 08:23; Start 07/20/19 at 09:00; Stop 07/25/19 at 14:13; Status DC Ticagrelor (Brilinta) 90 mg 1X ONCE PO Last administered on 07/19/19at 17:28; Start 07/19/19 at 17:00; Stop 07/19/19 at 17:07; Status DC Info (Tpn Per Pharmacy) 1 each PRN DAILY PRN MC SEE COMMENTS Last administered on 07/21/19at 11:58; Start 07/19/19 at 17:00; Stop 07/21/19 at 19:42; Status DC Magnesium Sulfate/ Dextrose 100 ml @ 100 mls/hr 1X ONCE IV Last administered on 07/20/19at 09:40; Start 07/20/19 at 09:45; Stop 07/20/19 at 10:44; Status DC Magnesium Sulfate/ Dextrose 100 ml @ 100 mls/hr 1X ONCE IV Last administered on 07/20/19at 11:43; Start 07/20/19 at 09:45; Stop 07/20/19 at 10:44; Status DC Potassium Chloride/Water 100 ml @ 100 mls/hr Q1H IV Last administered on 07/20/19at 15:45; Start 07/20/19 at 09:45; Stop 07/20/19 at 13:44; Status DC Amiodarone HCl 450 mg/Dextrose 259 ml @ 0 mls/hr CONT PRN IV SEE I/O RECORD; Start 07/20/19 at 10:00; Status Cancel Lidocaine HCl (Lidocaine HCl 2% Abboject) 80 mg 1X ONCE IV Last administered on 07/20/19at 10:11; Start 07/20/19 at 10:00; Stop 07/20/19 at 10:03; Status DC Lidocaine HCl/ Dextrose 500 ml @ 0 mls/hr CONT PRN IV SEE I/O RECORD Last administered on 07/20/19at 10:15; Start 07/20/19 at 10:00; Stop 07/21/19 at 15:07; Status DC Furosemide (Lasix) 40 mg DAILY IVP Last administered on 07/22/19at 09:03; Start 07/21/19 at 09:00; Stop 07/22/19 at 12:54; Status DC Sodium Chloride 90 meq/Potassium Chloride 50 meq/ Potassium Phosphate 13.6 mmol/Magnesium Sulfate 10 meq/ Calcium Gluconate 10 meq/ Multivitamins 10 ml/Chromium/ Copper/Manganese/ Seleni/Zn 1 ml/ Total Parenteral Nutrition/Amino Acids/Dextrose/ Fat Emulsion Intravenous 1,512 ml @ 63 mls/hr TPN CONT IV Last administered on 07/20/19at 22:01; Start 07/20/19 at 22:00; Stop 07/21/19 at 21:59; Status DC Sodium Chloride 90 meq/Potassium Chloride 50 meq/ Potassium Phosphate 13.6 mmol/Magnesium Sulfate 10 meq/ Calcium Gluconate 10 meq/ Multivitamins 10 ml/Chromium/ Copper/Manganese/ Seleni/Zn 1 ml/ Total Parenteral Nutrition/Amino Acids/Dextrose/ Fat Emulsion Intravenous 1,512 ml @ 63 mls/hr TPN CONT IV ; Start 07/21/19 at 22:00; Stop 07/22/19 at 09:05; Status DC Potassium Chloride (Klor-Con) 40 meq 1X ONCE PO Last administered on 07/21/19at 15:38; Start 07/21/19 at 14:30; Stop 07/21/19 at 14:33; Status DC Amiodarone HCl (Cordarone) 400 mg DAILY PO Last administered on 07/30/19at 08:31; Start 07/22/19 at 09:00 Amiodarone HCl (Cordarone) 200 mg 1X ONCE PO Last administered on 07/21/19at 15:38; Start 07/21/19 at 15:15; Stop 07/21/19 at 15:16; Status DC Info (Tpn Per Pharmacy) 1 each PRN DAILY PRN MC SEE COMMENTS; Start 07/22/19 at 08:45; Status Cancel Piperacillin Sod/ Tazobactam Sod 3.375 gm/Sodium Chloride 50 ml @ 100 mls/hr Q6HRS IV Last administered on 07/25/19at 05:33; Start 07/22/19 at 12:00; Stop 07/25/19 at 10:10; Status DC Potassium Chloride (Klor-Con) 40 meq 1X ONCE PO Last administered on 07/22/19at 12:03; Start 07/22/19 at 11:45; Stop 07/22/19 at 11:47; Status DC Desmopressin Acetate (Ddavp) 4 mcg BID SQ Last administered on 07/23/19at 10:20; Start 07/22/19 at 14:00; Stop 07/23/19 at 09:01; Status DC Metoprolol Tartrate (Lopressor) 12.5 mg Q12HR PO Last administered on 07/27/19at 08:38; Start 07/23/19 at 21:00; Stop 07/27/19 at 11:55; Status DC Potassium Bicarbonate (Potassium Effervescent Tablet) 40 meq 1X ONCE PO Last administered on 07/23/19at 12:49; Start 07/23/19 at 10:15; Stop 07/23/19 at 10:16; Status DC Magnesium Sulfate 50 ml @ 25 mls/hr PRN DAILY PRN IV for Mag < 1.7 on am labs; Start 07/23/19 at 13:15 Potassium Chloride/Water 100 ml @ 50 mls/hr PRN Q6HRS PRN IV For K < 3.7 Last administered on 07/25/19at 06:28; Start 07/23/19 at 13:15; Stop 07/27/19 at 11:55; Status DC Potassium Chloride/Water 100 ml @ 50 mls/hr PRN Q2HR PRN IV total of 40mEq for K < 3.5 Last administered on 07/26/19at 06:15; Start 07/23/19 at 13:15; Stop 07/27/19 at 11:55; Status DC Amino Acids/ Glycerin/ Electrolytes 1,000 ml @ 50 mls/hr Q20H IV ; Start 07/23/19 at 13:15; Stop 07/23/19 at 17:04; Status DC Furosemide (Lasix) 40 mg [id number] IVP Last administered on 07/27/19at 09:59; Start 07/23/19 at 14:00; Stop 07/27/19 at 11:08; Status DC Dextrose 1,000 ml @ 75 mls/hr [id number] IV Last administered on 07/23/19at 17:09; Start 07/23/19 at 17:00; Stop 07/24/19 at 11:06; Status DC Nitroglycerin/ Dextrose 250 ml @ 1.5 mls/hr CONT PRN IV SEE I/O RECORD Last administered on 07/24/19at 08:05; Start 07/24/19 at 08:00; Stop 07/27/19 at 11:55; Status DC Potassium Chloride (Klor-Con) 40 meq 1X ONCE PO ; Start 07/24/19 at 11:00; Stop 07/24/19 at 11:04; Status DC Potassium Bicarbonate (Potassium Effervescent Tablet) 40 meq 1X ONCE PO Last administered on 07/24/19at 11:54; Start 07/24/19 at 12:00; Stop 07/24/19 at 12:01; Status DC Magnesium Sulfate 50 ml @ 25 mls/hr PRN DAILY PRN IV for Mag < 1.7 on am labs; Start 07/25/19 at 08:45; Stop 07/25/19 at 15:52; Status DC Magnesium Sulfate 50 ml @ 25 mls/hr 1X ONCE IV Last administered on 07/25/19at 10:05; Start 07/25/19 at 10:00; Stop 07/25/19 at 11:59; Status DC Piperacillin Sod/ Tazobactam Sod 3.375 gm/Sodium Chloride 50 ml @ 100 mls/hr Q8HRS IV Last administered on 07/26/19at 05:33; Start 07/25/19 at 14:00; Stop 07/26/19 at 10:16; Status DC Amlodipine Besylate (Norvasc) 2.5 mg DAILY FT Last administered on 07/26/19at 09:16; Start 07/25/19 at 11:00; Stop 07/26/19 at 10:16; Status DC Potassium Chloride/Water 100 ml @ 100 mls/hr Q1H IV Last administered on 07/25/19at 16:01; Start 07/25/19 at 15:00; Stop 07/25/19 at 16:59; Status DC Potassium Chloride/Water 100 ml @ 50 mls/hr 1X ONCE IV Last administered on 07/26/19at 09:53; Start 07/26/19 at 10:00; Stop 07/26/19 at 11:59; Status DC Potassium Chloride/Water 100 ml @ 50 mls/hr 1X ONCE IV Last administered on 07/26/19at 12:24; Start 07/26/19 at 12:00; Stop 07/26/19 at 13:59; Status DC Magnesium Sulfate 50 ml @ 25 mls/hr 1X ONCE IV Last administered on 07/26/19at 14:12; Start 07/26/19 at 09:45; Stop 07/26/19 at 11:44; Status DC Amlodipine Besylate (Norvasc) 5 mg DAILY FT Last administered on 07/30/19at 08:32; Start 07/27/19 at 09:00 Potassium Chloride/Water 100 ml @ 50 mls/hr Q2H IV Last administered on 07/27/19at 00:56; Start 07/26/19 at 21:00; Stop 07/27/19 at 00:59; Status DC Haloperidol Lactate (Haldol Inj) 2 mg 1X ONCE IM Last administered on 07/27/19a t 01:40; Start 07/27/19 at 01:15; Stop 07/27/19 at 01:16; Status DC Quetiapine Fumarate (SEROquel) 25 mg PRN Q6HRS PRN PO AGITATION Last administered on 07/27/19at 01:21; Start 07/27/19 at 01:00 Alteplase, Recombinant (Cathflo For Central Catheter Clearance) 1 mg 1X ONCE INT CAT Last administered on 07/27/19at 08:43; Start 07/27/19 at 08:00; Stop 07/27/19 at 08:15; Status DC Potassium Chloride/Water 100 ml @ 50 mls/hr Q2H IV Last administered on 07/27/19at 12:23; Start 07/27/19 at 09:00; Stop 07/27/19 at 12:59; Status DC Furosemide (Lasix) 40 mg DAILY PO Last administered on 07/29/19at 07:56; Start 07/28/19 at 09:00; Stop 07/29/19 at 09:08; Status DC Potassium Chloride (Klor-Con) 20 meq BID PO Last administered on 07/29/19at 07:56; Start 07/27/19 at 21:00; Stop 07/29/19 at 11:47; Status DC Metoprolol Succinate (Toprol Xl) 25 mg DAILY PO Last administered on 07/30/19at 08:31; Start 07/28/19 at 09:00 Pantoprazole Sodium (Protonix) 40 mg DAILYAC PO Last administered on 07/30/19 08:30; Start 07/28/19 at 07:30 Acetaminophen (Tylenol) 650 mg PRN Q6HRS PRN PO MILD PAIN / TEMP > 100.3'F Last administered on 07/28/19at 13:11; Start 07/27/19 at 12:00 Oxycodone HCl (Roxicodone) 15 mg PRN BID PRN PO SEVERE PAIN 7-10 Last administered on 07/29/19at 21:46; Start 07/27/19 at 12:00 Sodium Phosphate 15 mmol/Sodium Chloride 105 ml @ 105 mls/hr 1X ONCE IV Last administered on 07/27/19at 15:02; Start 07/27/19 at 12:30; Stop 07/27/19 at 13:29; Status DC Potassium Chloride (Klor-Con) 40 meq 1X ONCE PO Last administered on 07/28/19at 11:41; Start 07/28/19 at 11:15; Stop 07/28/19 at 11:16; Status DC Ticagrelor (Brilinta) 90 mg BID PO Last administered on 07/30/19at 08:30; Start 07/28/19 at 12:45 Potassium Chloride (Klor-Con) 40 meq 1X ONCE PO Last administered on 07/29/19at 11:55; Start 07/29/19 at 09:15; Stop 07/29/19 at 09:16; Status DC Fluticasone Propionate (Flonase) 2 spray DAILY NS Last administered on 07/30/19at 08:30; Start 07/30/19 at 09:00 Active Scripts Active Toprol XL (Metoprolol Succinate) 50 Mg Tab.er.24h 50 Mg PO DAILY Metolazone 2.5 Mg Tablet 2.5 Mg PO QODAY Furosemide 40 Mg Tablet 40 Mg PO [id number] Klor-Con M20 (Potassium Chloride) 20 Meq Tab.er.prt 20 Meq PO BIDWMEALS Amiodarone Hcl 200 Mg Tablet 200 Mg PO DAILY Eliquis (Apixaban) 5 Mg Tablet 5 Mg PO BID Reported Acetaminophen 325 Mg Tablet 325 Mg PO Q6HRS Dicyclomine Hcl 10 Mg Capsule 1 Cap PO PRN TID PRN Nexium Capsule (Esomeprazole Magnesium) 40 Mg Capsule.dr 40 Mg PO DAILYAC Oxycodone Hcl Immed.release (Oxycodone Hcl) 15 Mg Tablet 15 Mg PO PRN Q12HR PRN Alprazolam 1 Mg Tablet 1 Tab PO BID Vitals/I & O Vital Sign - Last 24 Hours 07/29/19 07/29/19 07/29/19 07/29/19 14:34 14:47 15:45 19:29 Temp 97.8 97.3 97.8 97.3 Pulse 61 60 Resp 20 18 B/P (MAP) 140/64 (89) 139/71 (93) Pulse Ox 97 95 O2 Delivery Room Air Room Air Room Air Room Air 07/29/19 07/29/19 07/29/19 07/29/19 20:00 21:46 22:46 23:40 Temp 97.6 97.6 Pulse 60 Resp 18 18 22 B/P (MAP) 161/76 (104) Pulse Ox 95 95 95 O2 Delivery Room Air Room Air Room Air Room Air 07/30/19 07/30/19 07/30/19 07/30/19 03:50 07:00 08:02 08:31 Temp 97.9 97.8 97.9 97.8 Pulse 64 60 Resp 20 20 B/P (MAP) 170/80 (110) 139/75 (96) 139/75 Pulse Ox 97 96 O2 Delivery Room Air Room Air Room Air 07/30/19 07/30/19 07/30/19 08:31 08:32 11:02 Temp 98.1 98.1 Pulse 66 Resp 18 B/P (MAP) 139/75 139/75 148/66 (93) Pulse Ox 95 O2 Delivery Room Air Intake and Output 07/29/19 07/29/19 07/30/19 15:00 23:00 07:00 Intake Total 600 ml 1040 ml 750 ml Output Total 400 ml 175 ml Balance 200 ml 865 ml 750 ml RICK CAROLINA MD July 30, 2019 11:08
[2019-07-30] MEDS ORDERED: AMLO5TAB10 FT (11:18)
[2019-07-30] MEDS ORDERED: CLOP75TA PO (11:18)
[2019-07-30] MEDS ORDERED: METO-239 PO (11:18)
[2019-07-30] MEDS ORDERED: MAGN400T44 PO (11:18)
[2019-07-30] MEDS ORDERED: AMIO200T4 PO (11:18)
[2019-07-30] MEDS ORDERED: FURO40TA4 PO (11:18)
--- NOTE | 2019-07-30 11:20 | SNU/HH DC ---
DISCHARGE ORDERS DISCHARGE INFORMATION: DISCHARGE DATE: Jul 31, 2019 FINAL DIAGNOSIS Problems Medical Problems: (1) Acute exacerbation of CHF (congestive heart failure) Status: Acute (2) Acute on chronic renal insufficiency Status: Acute (3) Elevated troponin I level Status: Acute (4) Septic shock Status: Acute (5) Suspected COVID-19 virus infection Status: Acute CONDITION ON DISCHARGE: Stable CODE STATUS: Code Status: Full [facility]: SNF STAY <30 DAYS: Yes POST DISCHARGE ORDERS: ACTIVITY ORDERS: Activity as tolerated WEIGHT BEARING STATUS: As tolerated DIET AFTER DISCHARGE: Cardiac CHECKS AFTER DISCHARGE: CHECKS AFTER DISCHARGE: Check blood press - daily FOLLOW-UP: PHYSICIAN FOLLOW-UP: dr. carolina LAB ORDERS FOR FOLLOW-UP: bmp and magnesium every wednesday and TREATMENT/EQUIPMENT ORDERS: ADAPTIVE EQUIPMENT NEEDED: None Physical Therapy For: Evalulation/Treatment Occupational Therapy For: Evaluation/Treatment DISCHARGE MEDICATIONS: Home Meds Active Scripts Magnesium Oxide (Magnesium Oxide) 400 Mg Tablet, 1 TAB PO BID for hypomagnesemia for 30 Days, #60 TAB 0 Refills Prov:RICK CAROLINA MD 07/30/19 Furosemide (FUROSEMIDE) 40 Mg Tablet, 40 MG PO DAILY for CHF, #30 TAB Prov:RICK CAROLINA MD 07/30/19 Amlodipine Besylate (AMLODIPINE BESYLATE) 5 Mg Tablet, 5 MG FT DAILY for HTN, #30 TAB Prov:RICK CAROLINA MD 07/30/19 Metoprolol Succinate (METOPROLOL SUCCINATE ( XL )) 25 Mg Tab.er.24h, 25 MG PO DAILY for CAD, #30 TAB.SR Prov:RICK CAROLINA MD 07/30/19 Amiodarone Hcl (AMIODARONE HCL) 200 Mg Tablet, 400 MG PO DAILY for PAF, #30 TAB Prov:RICK CAROLINA MD 07/30/19 Clopidogrel Bisulfate (CLOPIDOGREL) 75 Mg Tablet, 75 MG PO DAILYWBKFT for CAD, #30 TAB Prov:RICK CAROLINA MD 07/30/19 Potassium Chloride (KLOR-CON M20) 20 Meq Tab.er.prt, 20 MEQ PO BIDWMEALS for potassium supplement, #60 TAB.SR Prov:RICK CAROLINA MD 06/20/19 Apixaban (ELIQUIS) 5 Mg Tablet, 5 MG PO BID for atrial fibrillation, #60 TAB Prov:RICK CAROLINA MD 06/20/19 Reported Medications Acetaminophen (ACETAMINOPHEN) 325 Mg Tablet, 325 MG PO Q6HRS for Pain, TAB 06/13/19 Esomeprazole Magnesium (NEXIUM CAPSULE) 40 Mg Capsule.dr, 40 MG PO DAILYAC for REFLUX, #30 CAP 0 Refills 05/17/19 Oxycodone Hcl (OXYCODONE HCL IMMED.RELEASE) 15 Mg Tablet, 15 MG PO PRN Q12HR PRN for PAIN, TAB 0 Refills 05/17/19 Alprazolam (ALPRAZOLAM) 1 Mg Tablet, 1 TAB PO BID, #60 TAB 02/05/17 Discontinued Reported Medications Dicyclomine Hcl (DICYCLOMINE HCL) 10 Mg Capsule, 1 CAP PO PRN TID PRN for SEE COMMENTS, #90 CAP 11 Refills 05/17/19 Discontinued Scripts Metoprolol Succinate (Toprol XL) 50 Mg Tab.er.24h, 50 MG PO DAILY for cardiomyopathy and atrial fib, #30 TAB.SR Prov:RICK CAROLINA MD 06/20/19 Metolazone (METOLAZONE) 2.5 Mg Tablet, 2.5 MG PO QODAY for chf, #15 TAB Prov:RICK CAROLINA MD 06/20/19 Furosemide (FUROSEMIDE) 40 Mg Tablet, 40 MG PO BID92 for chf, #60 TAB Prov:RICK CAROLINA MD 06/20/19 Amiodarone Hcl (AMIODARONE HCL) 200 Mg Tablet, 200 MG PO DAILY for atrial fibrillation, #30 TAB Prov:RICK CAROLINA MD 06/20/19 RICK CAROLINA MD July 30, 2019 11:20
--- NOTE | 2019-07-30 11:29 | PDOC ---
Provider Note Provider Note discharge summary dictated # [id number] RICK CAROLINA MD July 30, 2019 11:29
--- NOTE | 2019-07-30 11:38 | PDOC ---
SUBJECTIVE ROS Propped up in bed, No complaints, denies hematuria, No urinary complaints OBJECTIVE Vital Signs Vital Signs Date Time Temp Pulse Resp B/P (MAP) Pulse Ox O2 Delivery O2 Flow Rate FiO2 07/30/19 11:02 98.1 66 18 148/66 (93) 95 Room Air 98.1 I & 0 Intake and Output 07/30/19 07:00 Intake Total 2390 ml Output Total 575 ml Balance 1815 ml Intake Oral 2390 ml Output Urine Total 575 ml # Voids 1 # Bowel Movements 4 PHYSICAL EXAM Physical Exam General: NAD HEENT:Om moist Abdomen: Soft Heart: Regular rate, Normal S1, Normal S2 Extremities: trace edema LE Lungs: decreased at bases Neuro: grossly normal Skin: No rashes - No Antunez DIAGNOSIS/ASSESSMENT Assessment & Plan DONTAE - stable Cr was 3.3 , down to 1.5 , stable Supportive care, avoid nephrotoxins, Strict I/O, Daily BMP HypKalemia- replace as needed HyppoMg- replace Gross hematuria- resolved Acute Hypoxemia Resp failure - s/p Extubation Acute CHF- compensated , On RA, wt recorded in the chart- stable AFIB-sp recent Cardioversion HTN-stable S/P CODE BLUE COMMENT/RELEVANT DATA Meds Current Medications Medications (Trade) Dose Ordered Sig/Chance Start Time Stop Time Status Last Admin Dose Admin Acetaminophen (Tylenol) 650 mg PRN Q6HRS PRN 07/27/19 12:00 07/28/19 13:11 650 MG Alprazolam (Xanax) 1 mg BID 07/17/19 21:00 07/30/19 08:30 1 MG Alteplase, Recombinant (Cathflo For Central Catheter Clearance) 1 mg 1X ONCE 07/27/19 08:00 07/27/19 08:15 DC 07/27/19 08:43 1 MG Amino Acids/ Glycerin/ Electrolytes 1,000 ml @ 50 mls/hr Q20H 07/23/19 13:15 07/23/19 17:04 DC Amiodarone HCl (Cordarone) 200 mg 1X ONCE 07/21/19 15:15 07/21/19 15:16 DC 07/21/19 15:38 200 MG Amiodarone HCl 150 mg/Dextrose 103 ml @ 618 mls/hr 1X ONCE 07/19/19 12:00 5/20/20 12:09 DC 07/19/19 12:15 618 MLS/HR Amiodarone HCl 450 mg/Dextrose 259 ml @ 0 mls/hr CONT PRN 07/20/19 10:00 Cancel Amlodipine Besylate (Norvasc) 5 mg DAILY 07/27/19 09:00 07/30/19 08:32 5 MG Apixaban (Eliquis) 5 mg BID 07/30/19 21:00 Aspirin (Aspirin Chewable) 81 mg DAILYWBKFT 07/20/19 08:00 07/30/19 11:05 DC 07/30/19 08:30 81 MG Aspirin (Aspirin Rectal Supp) 300 mg 1X ONCE 07/17/19 05:45 07/17/19 05:46 DC 07/17/19 06:01 300 MG Atropine Sulfate (ATROPINE 0.5mg SYRINGE) 0.5 mg PRN Q5MIN PRN 07/17/19 11:00 07/25/19 18:27 DC Bumetanide (Bumex) 1 mg 1X ONCE 07/17/19 06:00 07/17/19 06:01 DC 07/17/19 06:00 1 MG Clopidogrel Bisulfate (Plavix) 75 mg DAILYWBKFT 07/30/19 12:00 Desmopressin Acetate (Ddavp) 4 mcg BID 07/22/19 14:00 07/23/19 09:01 DC 07/23/19 10:20 4 MCG Dexmedetomidine HCl 400 mcg/ Sodium Chloride 100 ml @ 0 mls/hr CONT PRN 07/17/19 11:00 07/25/19 18:27 DC 07/20/19 13:31 8.5 MLS/HR Dextrose 1,000 ml @ 75 mls/hr [id number] 07/23/19 17:00 07/24/19 11:06 DC 07/23/19 17:09 75 MLS/HR Digoxin (Lanoxin) 250 mcg 1X ONCE 07/19/19 04:10 07/19/19 06:15 DC 07/19/19 04:15 250 MCG Epinephrine HCl (EPINEPHrine SYRINGE) 4 mg STK-MED ONCE 07/18/19 16:08 07/19/19 16:08 DC Epinephrine HCl 5 mg/Sodium Chloride 255 ml @ 32.926 mls/ hr CONT PRN 07/18/19 14:00 07/24/19 11:06 DC Etomidate (Amidate) 20 mg 1X ONCE 07/17/19 04:45 07/17/19 04:46 DC 07/17/19 04:43 20 MG Fluticasone Propionate (Flonase) 2 spray DAILY 07/30/19 09:00 07/30/19 08:30 2 SPRAY Furosemide (Lasix) 40 mg DAILY 07/30/19 12:00 Haloperidol Lactate (Haldol Inj) 2 mg 1X ONCE 07/27/19 01:15 07/27/19 01:16 DC 07/27/19 01:40 2 MG Heparin Sodium (Porcine) (Heparin Sodium) 7,000 unit 1X ONCE 07/18/19 14:45 07/18/19 14:52 DC 07/18/19 14:45 7,000 UNIT Heparin Sodium/ Sodium Chloride 500 ml @ As Directed STK-MED ONCE 07/18/19 15:11 07/18/19 15:11 DC Heparin Sodium/ Sodium Chloride (HEPARIN for ARTERIAL LINE FLUSH) 1,000 unit 1X ONCE 07/18/19 14:45 07/18/19 14:52 DC 07/18/19 14:45 1,000 UNIT Info (Anti-Coagulation Monitoring By Pharmacy) 1 each PRN DAILY PRN 07/18/19 08:00 07/20/19 14:42 1 EACH Info (Tpn Per Pharmacy) 1 each PRN DAILY PRN 07/22/19 08:45 Cancel Insulin Human Lispro (HumaLOG) 0-6 UNITS Q6HRS 07/17/19 12:00 07/23/19 10:06 DC Iodixanol (Visipaque 320) 100 ml 1X ONCE 07/18/19 14:45 07/18/19 14:52 DC 07/18/19 14:45 104 ML Lansoprazole (Prevacid) 30 mg DAILY 07/18/19 09:00 07/27/19 11:55 DC 07/27/19 08:36 30 MG Lidocaine HCl (Lidocaine 1% 20ml Vial) 20 ml 1X ONCE 07/18/19 14:45 07/18/19 14:52 DC 07/18/19 14:45 10 ML Lidocaine HCl (Lidocaine HCl 2% Abboject) 80 mg 1X ONCE 07/20/19 10:00 07/20/19 10:03 DC 07/20/19 10:11 80 MG Lidocaine HCl (Xylocaine-Mpf 1% 2ml Vial) 2 ml STK-MED ONCE 07/18/19 13:05 07/18/19 13:05 DC Lidocaine HCl/ Dextrose 500 ml @ 0 mls/hr CONT PRN 07/20/19 10:00 07/21/19 15:07 DC 07/20/19 10:15 15 MLS/HR Linezolid/Dextrose 300 ml @ 300 mls/hr Q12HR 07/18/19 09:00 07/20/19 08:25 DC 07/19/19 21:29 300 MLS/HR Magnesium Hydroxide (Milk Of Magnesia) 2,400 mg PRN DAILY PRN 07/17/19 10:30 Magnesium Oxide (Magnesium Oxide) 400 mg BID 07/31/19 09:00 Magnesium Sulfate 50 ml @ 25 mls/hr 1X ONCE 07/30/19 12:00 07/30/19 13:59 Magnesium Sulfate/ Dextrose 100 ml @ 100 mls/hr 1X ONCE 07/20/19 09:45 07/20/19 10:44 DC 07/20/19 11:43 100 MLS/HR Metolazone (Zaroxolyn) 2.5 mg QODAY 07/19/19 09:00 07/18/19 10:36 DC Metoprolol Succinate (Toprol Xl) 25 mg DAILY 07/28/19 09:00 07/30/19 08:31 25 MG Metoprolol Tartrate (Lopressor) 12.5 mg Q12HR 07/23/19 21:00 07/27/19 11:55 DC 07/27/19 08:38 12.5 MG Midazolam HCl 100 ml @ 0 mls/hr CONT PRN 07/17/19 07:15 07/25/19 18:27 DC 07/22/19 23:41 5 MLS/HR Milrinone Lactate/ Dextrose 100 ml @ 0 mls/hr CONT PRN 07/18/19 07:15 07/23/19 10:03 DC 07/20/19 02:37 4.2 MLS/HR Morphine Sulfate 30 ml @ 0 mls/hr CONT PRN PRN 07/18/19 12:45 07/25/19 18:27 DC 07/25/19 02:46 2 MLS/HR Morphine Sulfate (Morphine Sulfate) 4 mg PRN Q1HR PRN 07/17/19 11:15 07/27/19 11:55 DC 07/18/19 13:53 4 MG Nitroglycerin (Nitrostat) 0.4 mg 1X ONCE 07/17/19 04:30 07/17/19 04:43 DC 07/17/19 04:29 0.4 MG Nitroglycerin/ Dextrose 250 ml @ 1.5 mls/hr CONT PRN 07/24/19 08:00 07/27/19 11:55 DC 07/24/19 08:05 1.5 MLS/HR Norepinephrine Bitartrate 32 mg/ Dextrose 282 ml @ 0 mls/hr CONT PRN 07/18/19 11:15 07/23/19 10:05 DC 07/19/19 10:39 9 MLS/HR Norepinephrine Bitartrate 8 mg/ Dextrose 258 ml @ 0 mls/hr CONT PRN 07/17/19 06:30 07/18/19 13:40 DC 07/17/19 21:52 11 MLS/HR Ondansetron HCl (Zofran) 4 mg PRN Q8HRS PRN 07/17/19 06:00 07/18/19 05:59 DC Oxycodone HCl (Roxicodone) 15 mg PRN BID PRN 07/27/19 12:00 07/29/19 21:46 15 MG Pantoprazole Sodium (Protonix) 40 mg DAILYAC 07/28/19 07:30 07/30/19 08:30 40 MG Piperacillin Sod/ Tazobactam Sod 2.25 gm/Sodium Chloride 50 ml @ 100 mls/hr Q6HRS 07/17/19 18:00 07/22/19 08:47 DC 07/22/19 05:46 100 MLS/HR Piperacillin Sod/ Tazobactam Sod 3.375 gm/Sodium Chloride 50 ml @ 100 mls/hr Q8HRS 07/25/19 14:00 07/26/19 10:16 DC 07/26/19 05:33 100 MLS/HR Piperacillin Sod/ Tazobactam Sod 4.5 gm/Sodium Chloride 100 ml @ 200 mls/hr 1X ONCE 07/17/19 06:00 07/17/19 06:29 DC 07/17/19 11:14 200 MLS/HR Potassium Bicarbonate (Potassium Effervescent Tablet) 40 meq 1X ONCE 07/24/19 12:00 07/24/19 12:01 DC 07/24/19 11:54 40 MEQ Potassium Chloride/Water 100 ml @ 50 mls/hr Q2H 07/27/19 09:00 07/27/19 12:59 DC 07/27/19 12:23 50 MLS/HR Potassium Chloride (Klor-Con) 20 meq BIDWMEALS 07/31/19 08:00 Propofol 100 ml @ 0 mls/hr CONT PRN 07/17/19 05:15 07/25/19 18:27 DC 07/24/19 18:33 10.9 MLS/HR Quetiapine Fumarate (SEROquel) 25 mg PRN Q6HRS PRN 07/27/19 01:00 07/27/19 01:21 25 MG Rocuronium [place] (Zemuron) 50 mg 1X ONCE 07/17/19 04:45 07/17/19 04:46 DC 07/17/19 04:44 50 MG Sodium Chloride 90 meq/Potassium Chloride 50 meq/ Potassium Phosphate 13.6 mmol/Magnesium Sulfate 10 meq/ Calcium Gluconate 10 meq/ Multivitamins 10 ml/Chromium/ Copper/Manganese/ Seleni/Zn 1 ml/ Total Parenteral Nutrition/Amino Acids/Dextrose/ Fat Emulsion Intravenous 1,512 ml @ 63 mls/hr TPN CONT 07/21/19 22:00 07/22/19 09:05 DC Sodium Phosphate 15 mmol/Sodium Chloride 105 ml @ 105 mls/hr 1X ONCE 07/27/19 12:30 07/27/19 13:29 DC 07/27/19 15:02 105 MLS/HR Ticagrelor (Brilinta) 90 mg BID 07/28/19 12:45 07/30/19 11:05 DC 07/30/19 08:30 90 MG Vancomycin HCl (Vanco Per Pharmacy) 1 each PRN DAILY PRN 07/17/19 06:00 07/17/19 10:41 DC 07/17/19 06:43 1 EACH Vancomycin HCl (Vancomycin Trough Level) 1 each 1X ONCE 07/19/19 06:00 07/19/19 06:01 Cancel Vancomycin HCl 1.75 gm/Sodium Chloride 500 ml @ 250 mls/hr Q24H 07/18/19 06:30 07/17/19 10:38 DC Vancomycin HCl 2 gm/Sodium Chloride 500 ml @ 250 mls/hr 1X ONCE 07/17/19 06:00 07/17/19 07:59 DC 07/17/19 06:15 250 MLS/HR Vecuronium [place] (Norcuron Bolus) 20 mg STK-MED ONCE 07/18/19 12:00 07/19/19 08:48 DC Lab Laboratory Tests Test 07/30/19 06:30 Sodium Level 141 mmol/L (136-145) Potassium Level 3.2 mmol/L (3.5-5.1) Chloride Level 104 mmol/L (98-107) Carbon Dioxide Level 29 mmol/L (21-32) Anion Gap 8 (6-14) Blood Urea Nitrogen 30 mg/dL (8-26) Creatinine 1.5 mg/dL (0.7-1.3) Estimated GFR (Cockcroft-Gault) 45.9 Glucose Level 94 mg/dL (70-99) Calcium Level 7.7 mg/dL (8.5-10.1) Magnesium Level 1.7 mg/dL (1.8-2.4) Results All relevant outside records, renal labs, imaging studies, telemetry/EKG's were reviewed. GYPSY COLEMAN MD July 30, 2019 11:38
[2019-07-30] MEDS ORDERED: MAGNESIUM SULFATE 2GM 50 ML IV ONE (12:00)
--- NOTE | 2019-07-30 12:03 | DS ---
DATE OF DISCHARGE: DATE OF ANTICIPATED DISMISSAL: 07/31/2019. CONSULTANTS: Dr. Smith, Dr. Ivy Carroll, Dr. James and Dr. Barrera. PROCEDURE: Cardiac catheterization and he had a right heart catheterization and also a left heart catheterization with right coronary artery angioplasty and stent. FINAL DIAGNOSES: 1. Sepsis and shock from pneumonia. 2. Pneumonia. 3. Acute on chronic systolic congestive heart failure. 4. Acute pulmonary edema. 5. Severe cardiomyopathy with left ventricular ejection fraction improving from 10-15% to 40-45%. 6. Acute hypoxic and hypercarbic respiratory failure. 7. Atrial fibrillation with a rapid ventricular response. 8. Sepsis and shock. 9. Chronic kidney disease stage 3. 10. Acute kidney injury on top of chronic kidney disease stage 3. 11. Gastroesophageal reflux disease. 12. Bilateral lung infiltrates. This was consistent with pneumonia. 13. Hypokalemia. 14. Hypomagnesemia. 15. Ventricular tachycardia, cardiac arrest, 07/18/2019 and again, 07/20/2019. 16. Coronary angioplasty and stent to the right coronary artery. He actually had 3 stents to right coronary artery. 17. Hypertension. 18. Gross hematuria, most likely Antunez related, resolved. 19. Hemoptysis, resolved. 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 HOSPITAL COURSE: The patient is a 74-year-old morbidly obese white male with a history of severe cardiomyopathy and left ventricular ejection fraction of 10-15% with chronic systolic congestive heart failure, chronic kidney disease stage 3 with a baseline serum creatinine of about 2.3, who has a history of cardiorenal syndrome, paroxysmal atrial fibrillation, on Eliquis and noted new onset shortness of breath the night before admission. He went to the [facility] Emergency Room with acute hypoxic respiratory failure requiring intubation and placed on the ventilator. Chest x-ray showed bilateral lung infiltrates consistent with pulmonary edema and he was actually in sepsis with shock. He had lung infiltrates, was seen by the infectious disease doctor, treated with IV antibiotics with a high white count of 16,000. He was treated with IV vancomycin, IV Zosyn initially and his antibiotics were changed by the infectious disease doctor. He was given 1 mg of Bumex IV in the Emergency Room. He was admitted to the Intensive Care Unit on the ventilator. He was seen by numerous consultants including Dr. Smith for Pulmonary, Dr. Ivy Carroll for Infectious Disease, Dr. James for Nephrology, Dr. Barrera for Cardiology. He received IV antibiotics. His acute renal failure eventually improved. He was weaned off the ventilator. He had a right heart catheterization, which was consistent with more of sepsis than shock and not pulmonary edema from congestive heart failure at that time of the procedure and then he had a ventricular tachycardia arrest on 07/18/2019 and 07/20/2019 and underwent a left-sided heart catheterization, which showed coronary artery disease, single vessel disease and 3 stents placed in the right coronary artery by Dr. Barrera. The patient again was weaned off the ventilator. He had some hemoptysis, so his Eliquis and Brilinta were stopped and he then developed gross hematuria. That was stopped and the Antunez was removed. He is able to urinate today without any blood in the urine. I discussed the case with Dr. Barrera and his aspirin and Brilinta will be discontinued and he will be started on Plavix and Eliquis. He converted to sinus rhythm and had a repeat echocardiogram, which showed improvement of his left ventricular ejection fraction 40-45%. He was on IV milrinone, which was discontinued. He received physical therapy for critical illness myopathy. He had hypokalemia and hypomagnesemia, which was treated and today his potassium was 3.2, magnesium 1.7, BUN 30, creatinine 1.5. His COVID-19 was negative and influenza A and B were also negative. It is anticipated he will be dismissed to a fdc facility tomorrow. Our preference would be a rehab facility such as [facility]. He has already been accepted to [facility] awaiting for insurance approval. If he is approved, he would rather go to [facility] in a fdc facility; however, if he is not improved, he will go to a fdc facility. He will be dismissed on a cardiac diet. He finished his IV antibiotics and will be dismissed on amiodarone 400 mg p.o. daily, amlodipine 5 mg every day for hypertension, Plavix 75 mg every day, furosemide 40 mg every day, magnesium oxide 400 mg b.i.d., metoprolol succinate 25 mg p.o. daily, Xanax 1 mg b.i.d., Eliquis 5 mg b.i.d., Nexium 40 mg every day, oxycodone 15 mg every 12 hours p.r.n., 10 tablets, no refill, potassium chloride 20 mEq b.i.d. RICK CAROLINA MD DR: IZABELA/sarbjit JOB#: [id number] / [id number]
[2019-07-30] MEDS: POTASSIUM CHLORIDE 20 MEQ TABLET.ER. PO SCH ×2 (12:04→16:19)
[2019-07-30] MEDS: CLOPIDOGREL BISULFATE 75 MG TABLET PO SCH (12:05)
[2019-07-30] MEDS: FUROSEMIDE 40 MG TABLET. PO SCH (12:05)
--- NOTE | 2019-07-30 12:28 | PDOC ---
PULMONARY PROGRESS NOTES Subjective sob better, cough and post nasal drip better w flonase, on ra extubated 07/24 Vitals Vital Signs Date Time Temp Pulse Resp B/P (MAP) Pulse Ox O2 Delivery O2 Flow Rate FiO2 07/30/19 11:02 98.1 66 18 148/66 (93) 95 Room Air 98.1 General: Alert, No acute distress Lungs: Other (decrease bs) Cardiovascular: S1, S2 Abdomen: Soft, Non-tender Neuro Exam: Alert Extremities: Other (BLE +1 edema ) Skin: Warm Labs Laboratory Tests Test 07/29/19 05:00 07/30/19 06:30 Sodium Level 142 mmol/L (136-145) 141 mmol/L (136-145) Potassium Level 3.2 mmol/L (3.5-5.1) 3.2 mmol/L (3.5-5.1) Chloride Level 106 mmol/L (98-107) 104 mmol/L (98-107) Carbon Dioxide Level 31 mmol/L (21-32) 29 mmol/L (21-32) Anion Gap 5 (6-14) 8 (6-14) Blood Urea Nitrogen 34 mg/dL (8-26) 30 mg/dL (8-26) Creatinine 1.6 mg/dL (0.7-1.3) 1.5 mg/dL (0.7-1.3) Estimated GFR (Cockcroft-Gault) 42.6 45.9 Glucose Level 97 mg/dL (70-99) 94 mg/dL (70-99) Calcium Level 7.9 mg/dL (8.5-10.1) 7.7 mg/dL (8.5-10.1) Phosphorus Level 2.5 mg/dL (2.6-4.7) Magnesium Level 2.0 mg/dL (1.8-2.4) 1.7 mg/dL (1.8-2.4) Laboratory Tests Test 07/30/19 06:30 Sodium Level 141 mmol/L (136-145) Potassium Level 3.2 mmol/L (3.5-5.1) Chloride Level 104 mmol/L (98-107) Carbon Dioxide Level 29 mmol/L (21-32) Anion Gap 8 (6-14) Blood Urea Nitrogen 30 mg/dL (8-26) Creatinine 1.5 mg/dL (0.7-1.3) Estimated GFR (Cockcroft-Gault) 45.9 Glucose Level 94 mg/dL (70-99) Calcium Level 7.7 mg/dL (8.5-10.1) Magnesium Level 1.7 mg/dL (1.8-2.4) Medications Active Scripts Medications Dose Route/Sig Max Daily Dose Days Date Category Toprol XL (Metoprolol Succinate) 50 Mg Tab.er.24h 50 Mg PO DAILY 06/20/19 Rx Metolazone 2.5 Mg Tablet 2.5 Mg PO QODAY 06/20/19 Rx Furosemide 40 Mg Tablet 40 Mg PO [id number] 06/20/19 Rx Klor-Con M20 (Potassium Chloride) 20 Meq Tab.er.prt 20 Meq PO BIDWMEALS 06/20/19 Rx Amiodarone Hcl 200 Mg Tablet 200 Mg PO DAILY 06/20/19 Rx Eliquis (Apixaban) 5 Mg Tablet 5 Mg PO BID 06/20/19 Rx Acetaminophen 325 Mg Tablet 325 Mg PO Q6HRS 06/13/19 Reported Dicyclomine Hcl 10 Mg Capsule 1 Cap PO PRN TID PRN 05/17/19 Reported Nexium Capsule (Esomeprazole Magnesium) 40 Mg Capsule.dr 40 Mg PO DAILYAC 05/17/19 Reported Oxycodone Hcl Immed.release (Oxycodone Hcl) 15 Mg Tablet 15 Mg PO PRN Q12HR PRN 05/17/19 Reported Alprazolam 1 Mg Tablet 1 Tab PO BID 02/05/17 Reported Comments EF from 07/20/2019 <Conclusion> Left ventricle systolic function is mildly impaired. The Ejection Fraction is 40-45%. Septal motion consistent with conduction abnormality. Mild global hypokinesis. Technically difficult study. Limited study for EF only. cxr 07/25 basilar atelectasis Impression . IMPRESSION: 1. Acute hypoxemic hypercapnic respiratory failure. extubated 07/24 2. Bilateral pulmonary infiltrates, suspect combination of congestive heart failure and pneumonia. 3. Sepsis. 4. SARS-CoV 2, negative 5. Cardiomyopathy, ejection fraction of 15%., now 40% 6. Chronic atrial fibrillation. 7. DONTAE/Chronic kidney disease. 8. Acute on chronic systolic heart failure. 9. Hypotension, RESOLVED 10. Mild elevation in troponin. 11. Paroxysmal atrial fibrillation with recent cardioversion. 12. Status post CODE BLUE secondary to V. tach/coronary artery disease see below CArdiac CAth 07/18/2019 Conclusion 1. Normal biventricular filling pressures. 2. Mild pulmonary HTN 3. Normal cardiac output at 5.1 L/min 4. One vessel coronary disease. 5. Successful PCI of the RCA as described above 6. Patient had one episode of SVT with hypotension requiring synchronized cardioversion to SR. Plan . 1. extubated 07/24. 02 titration. on RA cont flonase for post nasal drip 2. bronchodilators/ CXR reviewed, pfts as out pt 3. Follow cardiology recs and lasix 4. off ABX Zosyn per ID 5. Follow nephrology recs 6. D/W RN and RT 7. Optimize BP 8. PT consult 9. speech f/u, eating PO 10. no hemoptysis, on asa and burlinta. eliquis restarted today, will monitor discussed w rn, pt, primary dr CODE: FULL ANCELMO BERGER MD July 30, 2019 12:28
[2019-07-30 14:37] VITALS: BP 128/68
[2019-07-30] MEDS: oxyCODONE IR 5 MG TABLET PO PRN ×2 (14:58→21:09)
[2019-07-30 18:23] VITALS: BP 147/67
[2019-07-30] MEDS: APIXABAN 5 MG TABLET. PO SCH (21:07)
[2019-07-30 22:35] VITALS: BP 134/72
[2019-07-31 02:30] VITALS: BP 143/74
[2019-07-31 06:44] LABS: CALCIUM 7.9 mg/dL (8.5-10.1); CREATININE 1.5 mg/dL (0.7-1.3); GFR 45.9; MAGNESIUM 1.9 mg/dL (1.8-2.4); POTASSIUM 3.6 mmol/L (3.5-5.1)
[2019-07-31 07:00] VITALS: BP 153/73
[2019-07-31] MEDS ORDERED: POTASSIUM CHLORIDE 20 MEQ TABLET.ER. PO SCH (08:00)
[2019-07-31] MEDS ORDERED: MAGNESIUM OXIDE 400 MG TABLET PO SCH (09:00)
[2019-07-31] MEDS: PANTOPRAZOLE 40 MG TABLET.DR. PO SCH (09:29)
[2019-07-31] MEDS: CLOPIDOGREL BISULFATE 75 MG TABLET PO SCH (09:29)
[2019-07-31] MEDS: amLODIPine BESYLATE 5 MG TABLET FT SCH (09:30)
[2019-07-31] MEDS: ALPRAZolam 0.5 MG TABLET FT SCH (09:30)
[2019-07-31] MEDS: FLUTICASONE 50MCG/NASAL SPRAY 16GM BOTTLE. NS SCH (09:30)
[2019-07-31] MEDS: AMIODARONE HCL 200 MG TABLET. PO SCH (09:31)
[2019-07-31] MEDS: APIXABAN 5 MG TABLET. PO SCH (09:31)
[2019-07-31] MEDS: FUROSEMIDE 40 MG TABLET. PO SCH (09:32)
[2019-07-31] MEDS: METOPROLOL SUCC 24HR ER 25 MG TAB.ER.24H. PO SCH (09:33)
--- NOTE | 2019-07-31 09:52 | PDOC ---
PULMONARY PROGRESS NOTES Subjective sob better, cough and post nasal drip better w flonase, on ra extubated 07/24 Vitals Vital Signs Date Time Temp Pulse Resp B/P (MAP) Pulse Ox O2 Delivery O2 Flow Rate FiO2 07/31/19 09:33 71 07/31/19 09:31 153/73 07/31/19 07:00 98.4 18 96 Room Air 98.4 07/30/19 15:58 2.0 General: Alert, No acute distress Lungs: Other (decrease bs) Cardiovascular: S1, S2 Abdomen: Soft, Non-tender Neuro Exam: Alert Extremities: Other (BLE +1 edema ) Skin: Warm Labs Laboratory Tests Test 07/30/19 06:30 07/31/19 06:15 Sodium Level 141 mmol/L (136-145) 139 mmol/L (136-145) Potassium Level 3.2 mmol/L (3.5-5.1) 3.6 mmol/L (3.5-5.1) Chloride Level 104 mmol/L (98-107) 103 mmol/L (98-107) Carbon Dioxide Level 29 mmol/L (21-32) 29 mmol/L (21-32) Anion Gap 8 (6-14) 7 (6-14) Blood Urea Nitrogen 30 mg/dL (8-26) 22 mg/dL (8-26) Creatinine 1.5 mg/dL (0.7-1.3) 1.5 mg/dL (0.7-1.3) Estimated GFR (Cockcroft-Gault) 45.9 45.9 Glucose Level 94 mg/dL (70-99) 102 mg/dL (70-99) Calcium Level 7.7 mg/dL (8.5-10.1) 7.9 mg/dL (8.5-10.1) Magnesium Level 1.7 mg/dL (1.8-2.4) 1.9 mg/dL (1.8-2.4) Laboratory Tests Test 07/31/19 06:15 Sodium Level 139 mmol/L (136-145) Potassium Level 3.6 mmol/L (3.5-5.1) Chloride Level 103 mmol/L (98-107) Carbon Dioxide Level 29 mmol/L (21-32) Anion Gap 7 (6-14) Blood Urea Nitrogen 22 mg/dL (8-26) Creatinine 1.5 mg/dL (0.7-1.3) Estimated GFR (Cockcroft-Gault) 45.9 Glucose Level 102 mg/dL (70-99) Calcium Level 7.9 mg/dL (8.5-10.1) Magnesium Level 1.9 mg/dL (1.8-2.4) Medications Active Scripts Medications Dose Route/Sig Max Daily Dose Days Date Category Toprol XL (Metoprolol Succinate) 50 Mg Tab.er.24h 50 Mg PO DAILY 06/20/19 Rx Metolazone 2.5 Mg Tablet 2.5 Mg PO QODAY 06/20/19 Rx Furosemide 40 Mg Tablet 40 Mg PO BID92 06/20/19 Rx Klor-Con M20 (Potassium Chloride) 20 Meq Tab.er.prt 20 Meq PO BIDWMEALS 06/20/19 Rx Amiodarone Hcl 200 Mg Tablet 200 Mg PO DAILY 06/20/19 Rx Eliquis (Apixaban) 5 Mg Tablet 5 Mg PO BID 06/20/19 Rx Acetaminophen 325 Mg Tablet 325 Mg PO Q6HRS 06/13/19 Reported Dicyclomine Hcl 10 Mg Capsule 1 Cap PO PRN TID PRN 05/17/19 Reported Nexium Capsule (Esomeprazole Magnesium) 40 Mg Capsule.dr 40 Mg PO DAILYAC 05/17/19 Reported Oxycodone Hcl Immed.release (Oxycodone Hcl) 15 Mg Tablet 15 Mg PO PRN Q12HR PRN 05/17/19 Reported Alprazolam 1 Mg Tablet 1 Tab PO BID 02/05/17 Reported Comments EF from 07/20/2019 <Conclusion> Left ventricle systolic function is mildly impaired. The Ejection Fraction is 40-45%. Septal motion consistent with conduction abnormality. Mild global hypokinesis. Technically difficult study. Limited study for EF only. cxr 07/25 basilar atelectasis Impression . IMPRESSION: 1. Acute hypoxemic hypercapnic respiratory failure. extubated 07/24 2. Bilateral pulmonary infiltrates, suspect combination of congestive heart failure and pneumonia. 3. Sepsis. 4. SARS-CoV 2, negative 5. Cardiomyopathy, ejection fraction of 15%., now 40% 6. Chronic atrial fibrillation. 7. DONTAE/Chronic kidney disease. 8. Acute on chronic systolic heart failure. 9. Hypotension, RESOLVED 10. Mild elevation in troponin. 11. Paroxysmal atrial fibrillation with recent cardioversion. 12. Status post CODE BLUE secondary to V. tach/coronary artery disease see below CArdiac CAth 07/18/2019 Conclusion 1. Normal biventricular filling pressures. 2. Mild pulmonary HTN 3. Normal cardiac output at 5.1 L/min 4. One vessel coronary disease. 5. Successful PCI of the RCA as described above 6. Patient had one episode of SVT with hypotension requiring synchronized cardioversion to SR. Plan . 1. extubated 07/24. 02 titration. on RA cont flonase for post nasal drip 2. bronchodilators/ CXR reviewed, pfts as out pt 3. Follow cardiology recs and lasix 4. ID rec 5. Follow nephrology recs 6. D/W RN and RT 7. Optimize BP 8. PT consult 9. speech f/u, eating PO 10. no hemoptysis, on plavix /eliquis restarted , will monitor discussed w rn, pt, CODE: FULL CHRISTY WEBER MD Jul 31, 2019 09:52
--- NOTE | 2019-07-31 10:00 | PDOC ---
PROGRESS NOTES Subjective Subjective feels better . says he may be able to go home today if okay with PT and OT. walking better. lab reviewed. potassium 3.6 and mg 1.9 Objective Objective Vital Signs Date Time Temp Pulse Resp B/P (MAP) Pulse Ox O2 Delivery O2 Flow Rate FiO2 07/31/19 09:33 71 07/31/19 09:31 153/73 07/31/19 07:00 98.4 18 96 Room Air 98.4 07/30/19 15:58 2.0 Intake and Output 07/31/19 06:59 Intake Total 1280 ml Output Total 1075 ml Balance 205 ml Intake Oral 1280 ml Output Urine Total 1075 ml # Bowel Movements 1 Physical Exam Abdomen: Soft Heart: Regular rate Extremities: No edema General: Alert HEENT: Atraumatic Lungs: Clear to auscultation Neuro: Normal speech Psych/Mental Status: Mental status NL Skin: No rashes Assessment Assessment ProblemsAcute pulmonary edema. compensated 2. Acute on chronic systolic congestive heart failure.compensated 3. Severe cardiomyopathy with left ventricular ejection fraction improved to 40-45% 07/19 per echo 4. Acute hypoxic and hypercarbic respiratory failure, resolved 5. Paroxysmal atrial fibrillation, currently in NSR 6. sepsis with shock, shock resolved 7. chronic kidney disease stage 3. 8. Gastroesophageal reflux disease. 9. bilateral lung infiltrates. suspect pneumonia treated hypokalemia hypomagnesemia VT cardiac arrest 07/17 and again 07/19 PCI RCA 07/17 hypertension gross hematuira resolved hemoptysis resolved critical illness myopathy Medical Problems: (1) Acute exacerbation of CHF (congestive heart failure) Status: Acute (2) Acute on chronic renal insufficiency Status: Acute (3) Elevated troponin I level Status: Acute (4) Septic shock Status: Acute (5) Suspected COVID-19 virus infection Status: Acute Plan Plan of Care iv magnesium today extra kcl today PT and OT eliquis and plavix dismiss to home with home health if okay with PT and OT Comment Review of Relevant I have reviewed the following items juan (where applicable) has been applied. Labs Laboratory Tests Test 07/30/19 06:30 07/31/19 06:15 Sodium Level 141 mmol/L (136-145) 139 mmol/L (136-145) Potassium Level 3.2 mmol/L (3.5-5.1) 3.6 mmol/L (3.5-5.1) Chloride Level 104 mmol/L (98-107) 103 mmol/L (98-107) Carbon Dioxide Level 29 mmol/L (21-32) 29 mmol/L (21-32) Anion Gap 8 (6-14) 7 (6-14) Blood Urea Nitrogen 30 mg/dL (8-26) 22 mg/dL (8-26) Creatinine 1.5 mg/dL (0.7-1.3) 1.5 mg/dL (0.7-1.3) Estimated GFR (Cockcroft-Gault) 45.9 45.9 Glucose Level 94 mg/dL (70-99) 102 mg/dL (70-99) Calcium Level 7.7 mg/dL (8.5-10.1) 7.9 mg/dL (8.5-10.1) Magnesium Level 1.7 mg/dL (1.8-2.4) 1.9 mg/dL (1.8-2.4) Laboratory Tests Test 07/31/19 06:15 Sodium Level 139 mmol/L (136-145) Potassium Level 3.6 mmol/L (3.5-5.1) Chloride Level 103 mmol/L (98-107) Carbon Dioxide Level 29 mmol/L (21-32) Anion Gap 7 (6-14) Blood Urea Nitrogen 22 mg/dL (8-26) Creatinine 1.5 mg/dL (0.7-1.3) Estimated GFR (Cockcroft-Gault) 45.9 Glucose Level 102 mg/dL (70-99) Calcium Level 7.9 mg/dL (8.5-10.1) Magnesium Level 1.9 mg/dL (1.8-2.4) Microbiology 07/17/19 Urine Culture - Final, Complete 07/17/19 Urine Culture Result 1 (BOYD) - Final, Complete 07/17/19 Blood Culture - Final, Complete NO GROWTH AFTER 5 DAYS 07/17/19 Nose/Throat Culture - Final, Complete 07/17/19 - Final, Complete Medications Current Medications Nitroglycerin (Nitrostat) 0.4 mg STK-MED ONCE SL ; Start 07/17/19 at 04:28; Stop 07/17/19 at 04:28; Status DC Nitroglycerin (Nitrostat) 0.4 mg 1X ONCE SL Last administered on 07/17/19at 04:29; Start 07/17/19 at 04:30; Stop 07/17/19 at 04:43; Status DC Nitroglycerin/ Dextrose 250 ml @ 0 mls/hr 1X ONCE IV Last administered on 07/17/19at 04:47; Start 07/17/19 at 04:45; Stop 07/17/19 at 04:46; Status DC Rocuronium [place] (Zemuron) 50 mg 1X ONCE IV Last administered on 07/17/19at 04:44; Start 07/17/19 at 04:45; Stop 07/17/19 at 04:46; Status DC Etomidate (Amidate) 20 mg 1X ONCE IV Last administered on 07/17/19at 04:43; Start 07/17/19 at 04:45; Stop 07/17/19 at 04:46; Status DC Propofol 100 ml @ 0 mls/hr CONT PRN IV SEE PROTOCOL Last administered on 07/24/19at 18:33; Start 07/17/19 at 05:15; Stop 07/25/19 at 18:27; Status DC Aspirin (Aspirin Rectal Supp) 300 mg 1X ONCE SC Last administered on 07/17/19at 06:01; Start 07/17/19 at 05:45; Stop 07/17/19 at 05:46; Status DC Bumetanide (Bumex) 1 mg 1X ONCE IV Last administered on 07/17/19at 06:00; Start 07/17/19 at 06:00; Stop 07/17/19 at 06:01; Status DC Piperacillin Sod/ Tazobactam Sod 4.5 gm/Sodium Chloride 100 ml @ 200 mls/hr 1X ONCE IV Last administered on 07/17/19at 11:14; Start 07/17/19 at 06:00; Stop 07/17/19 at 06:29; Status DC Vancomycin HCl (Vanco Per Pharmacy) 1 each PRN DAILY PRN MC SEE COMMENTS Last administered on 07/17/19at 06:43; Start 07/17/19 at 06:00; Stop 07/17/19 at 10:41; Status DC Vancomycin HCl 2 gm/Sodium Chloride 500 ml @ 250 mls/hr 1X ONCE IV Last administered on 07/17/19at 06:15; Start 07/17/19 at 06:00; Stop 07/17/19 at 07:59; Status DC Ondansetron HCl (Zofran) 4 mg PRN Q8HRS PRN IV NAUSEA/VOMITING; Start 07/17/19 at 06:00; Stop 07/18/19 at 05:59; Status DC Norepinephrine Bitartrate 8 mg/ Dextrose 258 ml @ 0 mls/hr CONT PRN IV SEE I/O RECORD Last administered on 07/17/19at 21:52; Start 07/17/19 at 06:30; Stop 07/18/19 at 13:40; Status DC Vancomycin HCl 1.75 gm/Sodium Chloride 500 ml @ 250 mls/hr Q24H IV ; Start 07/18/19 at 06:30; Stop 07/17/19 at 10:38; Status DC Vancomycin HCl (Vancomycin Trough Level) 1 each 1X ONCE MC ; Start 07/19/19 at 06:00; Stop 07/19/19 at 06:01; Status Cancel Morphine Sulfate (Morphine Sulfate) 6 mg 1X ONCE IV Last administered on 07/17/19at 07:08; Start 07/17/19 at 07:15; Stop 07/17/19 at 07:16; Status DC Midazolam HCl 100 ml @ 0 mls/hr CONT PRN IV SEE PROTOCOL Last administered on 07/22/19at 23:41; Start 07/17/19 at 07:15; Stop 07/25/19 at 18:27; Status DC Morphine Sulfate (Morphine Sulfate) 4 mg PRN Q1HR PRN IV SEE COMMENTS.; Start 07/17/19 at 08:00; Stop 07/17/19 at 10:38; Status DC Heparin Sodium (Porcine) (Heparin Sodium) 5,000 unit Q12HR SQ ; Start 07/17/19 at 21:00; Stop 07/17/19 at 10:38; Status DC Amiodarone HCl (Cordarone) 200 mg DAILY PO Last administered on 07/21/19at 09:04; Start 07/18/19 at 09:00; Stop 07/21/19 at 15:07; Status DC Metolazone (Zaroxolyn) 2.5 mg QODAY PO ; Start 07/19/19 at 09:00; Stop 07/18/19 at 10:36; Status DC Potassium Chloride (Klor-Con) 20 meq BIDWMEALS PO Last administered on 07/17/19at 16:34; Start 07/17/19 at 17:00; Stop 07/18/19 at 10:36; Status DC Furosemide (Lasix) 40 mg [id number] IVP Last administered on 07/18/19at 08:03; Start 07/17/19 at 14:00; Stop 07/20/19 at 11:02; Status DC Morphine Sulfate (Morphine Sulfate) 2 mg PRN Q4HRS PRN IV SEE COMMENTS.; Start 07/17/19 at 10:30; Status Cancel Apixaban (Eliquis) 5 mg BID FT Last administered on 07/23/19at 08:17; Start 07/17/19 at 21:00; Stop 07/23/19 at 10:05; Status DC Insulin Human Lispro (HumaLOG) 0-6 UNITS Q6HRS SQ ; Start 07/17/19 at 12:00; Stop 07/23/19 at 10:06; Status DC Lansoprazole (Prevacid) 30 mg DAILY FT Last administered on 07/27/19at 08:36; Start 07/18/19 at 09:00; Stop 07/27/19 at 11:55; Status DC Acetaminophen (Tylenol) 650 mg PRN Q6HRS PRN FT MILD PAIN / TEMP > 100.3'F; Start 07/17/19 at 10:30; Stop 07/27/19 at 11:55; Status DC Alprazolam (Xanax) 1 mg BID FT Last administered on 07/31/19at 09:30; Start 07/17/19 at 21:00 Magnesium Hydroxide (Milk Of Magnesia) 2,400 mg PRN DAILY PRN FT CONSTIPATION; Start 07/17/19 at 10:30 Dexmedetomidine HCl 400 mcg/ Sodium Chloride 100 ml @ 0 mls/hr CONT PRN IV PER PROTOCOL Last administered on 07/20/19at 13:31; Start 07/17/19 at 11:00; Stop 07/25/19 at 18:27; Status DC Sodium Chloride 500 ml @ 500 mls/hr 1X PRN PRN IV SEE COMMENTS; Start 07/17/19 at 11:00; Stop 07/22/19 at 12:54; Status DC Atropine Sulfate (ATROPINE 0.5mg SYRINGE) 0.5 mg PRN Q5MIN PRN IV SEE COMMENTS; Start 07/17/19 at 11:00; Stop 07/25/19 at 18:27; Status DC Morphine Sulfate (Morphine Sulfate) 2 mg PRN Q1HR PRN IV SEE COMMENTS. Last administered on 07/17/19at 13:37; Start 07/17/19 at 11:15; Stop 07/27/19 at 1 1:55; Status DC Morphine Sulfate (Morphine Sulfate) 4 mg PRN Q1HR PRN IV SEE COMMENTS. Last administered on 07/18/19at 13:53; Start 07/17/19 at 11:15; Stop 07/27/19 at 11:55; Status DC Piperacillin Sod/ Tazobactam Sod 2.25 gm/Sodium Chloride 50 ml @ 100 mls/hr Q6HRS IV Last administered on 07/22/19at 05:46; Start 07/17/19 at 18:00; Stop 07/22/19 at 08:47; Status DC Magnesium Sulfate 50 ml @ 25 mls/hr 1X ONCE IV Last administered on 07/18/19at 08:04; Start 07/18/19 at 07:15; Stop 07/18/19 at 09:14; Status DC Milrinone Lactate/ Dextrose 100 ml @ 0 mls/hr CONT PRN IV SEE I/O RECORD Last administered on 07/20/19at 02:37; Start 07/18/19 at 07:15; Stop 07/23/19 at 10:03; Status DC Linezolid/Dextrose 300 ml @ 300 mls/hr Q12HR IV Last administered on 07/19/19at 21:29; Start 07/18/19 at 09:00; Stop 07/20/19 at 08:25; Status DC Info (Anti-Coagulation Monitoring By Pharmacy) 1 each PRN DAILY PRN MC SEE COMMENTS Last administered on 07/20/19at 14:42; Start 07/18/19 at 08:00 Vecuronium [place] (Norcuron Bolus) 10 mg STK-MED ONCE IV ; Start 07/18/19 at 09:12; Stop 07/18/19 at 09:12; Status DC Potassium Chloride/Water 100 ml @ 100 mls/hr 1X ONCE IV Last administered on 07/18/19at 10:04; Start 07/18/19 at 09:45; Stop 07/18/19 at 10:44; Status DC Magnesium Sulfate 50 ml @ 25 mls/hr 1X ONCE IV Last administered on 07/18/19at 10:03; Start 07/18/19 at 09:45; Stop 07/18/19 at 11:44; Status DC Norepinephrine Bitartrate 32 mg/ Dextrose 282 ml @ 0 mls/hr CONT PRN IV SEE I/O RECORD Last administered on 07/19/19at 10:39; Start 07/18/19 at 11:15; Stop 07/23/19 at 10:05; Status DC Morphine Sulfate 30 ml @ 0 mls/hr CONT PRN PRN IV PER PROTOCOL Last administered on 07/25/19at 02:46; Start 07/18/19 at 12:45; Stop 07/25/19 at 18:27; Status DC Lidocaine HCl (Xylocaine-Mpf 1% 2ml Vial) 2 ml STK-MED ONCE .ROUTE ; Start 07/18/19 at 13:05; Stop 07/18/19 at 13:05; Status DC Iodixanol (Visipaque 320) 100 ml STK-MED ONCE .ROUTE ; Start 07/18/19 at 13:05; Stop 07/18/19 at 13:06; Status DC Heparin Sodium/ Sodium Chloride 1,500 ml @ As Directed STK-MED ONCE .ROUTE ; Start 07/18/19 at 13:05; Stop 07/18/19 at 13:06; Status DC Vecuronium [place] (Norcuron Bolus) 10 mg STK-MED ONCE IV ; Start 07/18/19 at 13:49; Stop 07/18/19 at 13:49; Status DC Vecuronium [place] (Norcuron Bolus) 6 mg PRN Q4HRS PRN IV ANXIETY / AGITATION; Start 07/18/19 at 14:00; Stop 07/25/19 at 18:27; Status DC Epinephrine HCl 5 mg/Sodium Chloride 255 ml @ 32.926 mls/ hr CONT PRN IV SEE I/O RECORD; Start 07/18/19 at 14:00; Stop 07/24/19 at 11:06; Status DC Lidocaine HCl (Lidocaine 1% 20ml Vial) 20 ml STK-MED ONCE .ROUTE ; Start 07/18/19 at 14:11; Stop 07/18/19 at 14:11; Status DC Heparin Sodium (Porcine) (Heparin Sodium) 10,000 unit STK-MED ONCE .ROUTE ; Start 07/18/19 at 14:27; Stop 07/18/19 at 14:28; Status DC Heparin Sodium/ Sodium Chloride (HEPARIN for ARTERIAL LINE FLUSH) 1,000 unit 1X ONCE IART Last administered on 07/18/19at 14:45; Start 07/18/19 at 14:45; Stop 07/18/19 at 14:52; Status DC Heparin Sodium/ Sodium Chloride (HEPARIN for ARTERIAL LINE FLUSH) 1,000 unit 1X ONCE IART Last administered on 07/18/19at 14:45; Start 07/18/19 at 14:45; Stop 07/18/19 at 14:52; Status DC Iodixanol (Visipaque 320) 100 ml 1X ONCE IART Last administered on 07/18/19at 14:45; Start 07/18/19 at 14:45; Stop 07/18/19 at 14:52; Status DC Heparin Sodium (Porcine) (Heparin Sodium) 7,000 unit 1X ONCE IV Last administered on 07/18/19at 14:45; Start 07/18/19 at 14:45; Stop 07/18/19 at 14:52; Status DC Lidocaine HCl (Lidocaine 1% 20ml Vial) 20 ml 1X ONCE INJ Last administered on 07/18/19at 14:45; Start 07/18/19 at 14:45; Stop 07/18/19 at 14:52; Status DC Heparin Sodium/ Sodium Chloride 500 ml @ As Directed STK-MED ONCE .ROUTE ; Start 07/18/19 at 15:11; Stop 07/18/19 at 15:11; Status DC Ticagrelor (Brilinta) 180 mg 1X ONCE PO Last administered on 07/18/19at 16:08; Start 07/18/19 at 16:00; Stop 07/18/19 at 16:01; Status DC Digoxin (Lanoxin) 250 mcg 1X ONCE IV ; Start 07/19/19 at 06:15; Stop 07/19/19 at 06:16; Status Cancel Digoxin (Lanoxin) 250 mcg 1X ONCE IV Last administered on 07/19/19at 05:15; Start 07/19/19 at 05:15; Stop 07/19/19 at 06:11; Status DC Digoxin (Lanoxin) 250 mcg 1X ONCE IV Last administered on 07/19/19at 08:48; Start 07/19/19 at 09:00; Stop 07/19/19 at 09:01; Status DC Digoxin (Lanoxin) 250 mcg 1X ONCE IV Last administered on 07/19/19at 04:15; Start 07/19/19 at 04:10; Stop 07/19/19 at 06:15; Status DC Vecuronium [place] (Norcuron Bolus) 20 mg STK-MED ONCE IV ; Start 07/18/19 at 12:00; Stop 07/19/19 at 08:48; Status DC Potassium Chloride/Water 100 ml @ 100 mls/hr 1X ONCE IV Last administered on 07/19/19at 12:13; Start 07/19/19 at 11:45; Stop 07/19/19 at 12:44; Status DC Amiodarone HCl 150 mg/Dextrose 103 ml @ 618 mls/hr 1X ONCE IV Last administered on 07/19/19at 12:15; Start 07/19/19 at 12:00; Stop 07/19/19 at 12:09; Status DC Metoprolol Tartrate (Lopressor) 12.5 mg Q6HRS PO Last administered on 07/23/19at 05:54; Start 07/19/19 at 12:00; Stop 07/23/19 at 10:05; Status DC Amiodarone HCl (Cordarone) 300 mg STK-MED ONCE .ROUTE ; Start 07/18/19 at 16:08; Stop 07/19/19 at 16:08; Status DC Epinephrine HCl (EPINEPHrine SYRINGE) 4 mg STK-MED ONCE .ROUTE ; Start 07/18/19 at 16:08; Stop 07/19/19 at 16:08; Status DC Aspirin (Aspirin Chewable) 81 mg 1X ONCE PO Last administered on 07/19/19at 17:28; Start 07/19/19 at 17:00; Stop 07/19/19 at 17:06; Status DC Aspirin (Aspirin Chewable) 81 mg [id number] PO Last administered on 07/30/19at 08:30; Start 07/20/19 at 08:00; Stop 07/30/19 at 11:05; Status DC Ticagrelor (Brilinta) 90 mg BID PO Last administered on 07/25/19at 08:23; Start 07/20/19 at 09:00; Stop 07/25/19 at 14:13; Status DC Ticagrelor (Brilinta) 90 mg 1X ONCE PO Last administered on 07/19/19at 17:28; Start 07/19/19 at 17:00; Stop 07/19/19 at 17:07; Status DC Info (Tpn Per Pharmacy) 1 each PRN DAILY PRN MC SEE COMMENTS Last administered on 07/21/19at 11:58; Start 07/19/19 at 17:00; Stop 07/21/19 at 19:42; Status DC Magnesium Sulfate/ Dextrose 100 ml @ 100 mls/hr 1X ONCE IV Last administered on 07/20/19at 09:40; Start 07/20/19 at 09:45; Stop 07/20/19 at 10:44; Status DC Magnesium Sulfate/ Dextrose 100 ml @ 100 mls/hr 1X ONCE IV Last administered on 07/20/19at 11:43; Start 07/20/19 at 09:45; Stop 07/20/19 at 10:44; Status DC Potassium Chloride/Water 100 ml @ 100 mls/hr Q1H IV Last administered on at 15:45; Start 07/20/19 at 09:45; Stop 07/20/19 at 13:44; Status DC Amiodarone HCl 450 mg/Dextrose 259 ml @ 0 mls/hr CONT PRN IV SEE I/O RECORD; Start 07/20/19 at 10:00; Status Cancel Lidocaine HCl (Lidocaine HCl 2% Abboject) 80 mg 1X ONCE IV Last administered on 07/20/19at 10:11; Start 07/20/19 at 10:00; Stop 07/20/19 at 10:03; Status DC Lidocaine HCl/ Dextrose 500 ml @ 0 mls/hr CONT PRN IV SEE I/O RECORD Last administered on 07/20/19at 10:15; Start 07/20/19 at 10:00; Stop 07/21/19 at 15:07; Status DC Furosemide (Lasix) 40 mg DAILY IVP Last administered on 07/22/19at 09:03; Start 07/21/19 at 09:00; Stop 07/22/19 at 12:54; Status DC Sodium Chloride 90 meq/Potassium Chloride 50 meq/ Potassium Phosphate 13.6 mmol/Magnesium Sulfate 10 meq/ Calcium Gluconate 10 meq/ Multivitamins 10 ml/Chromium/ Copper/Manganese/ Seleni/Zn 1 ml/ Total Parenteral Nutrition/Amino Acids/Dextrose/ Fat Emulsion Intravenous 1,512 ml @ 63 mls/hr TPN CONT IV Last administered on 07/20/19at 22:01; Start 07/20/19 at 22:00; Stop 07/21/19 at 21:59; Status DC Sodium Chloride 90 meq/Potassium Chloride 50 meq/ Potassium Phosphate 13.6 mmol/Magnesium Sulfate 10 meq/ Calcium Gluconate 10 meq/ Multivitamins 10 ml/Chromium/ Copper/Manganese/ Seleni/Zn 1 ml/ Total Parenteral Nutrition/Amino Acids/Dextrose/ Fat Emulsion Intravenous 1,512 ml @ 63 mls/hr TPN CONT IV ; Start 07/21/19 at 22:00; Stop 07/22/19 at 09:05; Status DC Potassium Chloride (Klor-Con) 40 meq 1X ONCE PO Last administered on 07/21/19at 15:38; Start 07/21/19 at 14:30; Stop 07/21/19 at 14:33; Status DC Amiodarone HCl (Cordarone) 400 mg DAILY PO Last administered on 07/31/19at 09:31; Start 07/22/19 at 09:00 Amiodarone HCl (Cordarone) 200 mg 1X ONCE PO Last administered on 07/21/19at 15:38; Start 07/21/19 at 15:15; Stop 07/21/19 at 15:16; Status DC Info (Tpn Per Pharmacy) 1 each PRN DAILY PRN MC SEE COMMENTS; Start 07/22/19 at 08:45; Status Cancel Piperacillin Sod/ Tazobactam Sod 3.375 gm/Sodium Chloride 50 ml @ 100 mls/hr Q6HRS IV Last administered on 07/25/19at 05:33; Start 07/22/19 at 12:00; Stop 07/25/19 at 10:10; Status DC Potassium Chloride (Klor-Con) 40 meq 1X ONCE PO Last administered on 07/22/19at 12:03; Start 07/22/19 at 11:45; Stop 07/22/19 at 11:47; Status DC Desmopressin Acetate (Ddavp) 4 mcg BID SQ Last administered on 07/23/19at 10:20; Start 07/22/19 at 14:00; Stop 07/23/19 at 09:01; Status DC Metoprolol Tartrate (Lopressor) 12.5 mg Q12HR PO Last administered on 07/27/19at 08:38; Start 07/23/19 at 21:00; Stop 07/27/19 at 11:55; Status DC Potassium Bicarbonate (Potassium Effervescent Tablet) 40 meq 1X ONCE PO Last administered on 07/23/19at 12:49; Start 07/23/19 at 10:15; Stop 07/23/19 at 10:16; Status DC Magnesium Sulfate 50 ml @ 25 mls/hr PRN DAILY PRN IV for Mag < 1.7 on am labs; Start 07/23/19 at 13:15 Potassium Chloride/Water 100 ml @ 50 mls/hr PRN Q6HRS PRN IV For K < 3.7 Last administered on 07/25/19at 06:28; Start 07/23/19 at 13:15; Stop 07/27/19 at 11:55; Status DC Potassium Chloride/Water 100 ml @ 50 mls/hr PRN Q2HR PRN IV total of 40mEq for K < 3.5 Last administered on 07/26/19at 06:15; Start 07/23/19 at 13:15; Stop 07/27/19 at 11:55; Status DC Amino Acids/ Glycerin/ Electrolytes 1,000 ml @ 50 mls/hr Q20H IV ; Start 07/23/19 at 13:15; Stop 07/23/19 at 17:04; Status DC Furosemide (Lasix) 40 mg [id number] IVP Last administered on 07/27/19at 09:59; Start 07/23/19 at 14:00; Stop 07/27/19 at 11:08; Status DC Dextrose 1,000 ml @ 75 mls/hr [id number] IV Last administered on 07/23/19at 17:09; Start 07/23/19 at 17:00; Stop 07/24/19 at 11:06; Status DC Nitroglycerin/ Dextrose 250 ml @ 1.5 mls/hr CONT PRN IV SEE I/O RECORD Last administered on 07/24/19at 08:05; Start 07/24/19 at 08:00; Stop 07/27/19 at 11:55; Status DC Potassium Chloride (Klor-Con) 40 meq 1X ONCE PO ; Start 07/24/19 at 11:00; St op 07/24/19 at 11:04; Status DC Potassium Bicarbonate (Potassium Effervescent Tablet) 40 meq 1X ONCE PO Last administered on 07/24/19at 11:54; Start 07/24/19 at 12:00; Stop 07/24/19 at 12:01; Status DC Magnesium Sulfate 50 ml @ 25 mls/hr PRN DAILY PRN IV for Mag < 1.7 on am labs; Start 07/25/19 at 08:45; Stop 07/25/19 at 15:52; Status DC Magnesium Sulfate 50 ml @ 25 mls/hr 1X ONCE IV Last administered on 07/25/19at 10:05; Start 07/25/19 at 10:00; Stop 07/25/19 at 11:59; Status DC Piperacillin Sod/ Tazobactam Sod 3.375 gm/Sodium Chloride 50 ml @ 100 mls/hr Q8HRS IV Last administered on 07/26/19at 05:33; Start 07/25/19 at 14:00; Stop 07/26/19 at 10:16; Status DC Amlodipine Besylate (Norvasc) 2.5 mg DAILY FT Last administered on 07/26/19at 09:16; Start 07/25/19 at 11:00; Stop 07/26/19 at 10:16; Status DC Potassium Chloride/Water 100 ml @ 100 mls/hr Q1H IV Last administered on 07/25/19at 16:01; Start 07/25/19 at 15:00; Stop 07/25/19 at 16:59; Status DC Potassium Chloride/Water 100 ml @ 50 mls/hr 1X ONCE IV Last administered on 07/26/19at 09:53; Start 07/26/19 at 10:00; Stop 07/26/19 at 11:59; Status DC Potassium Chloride/Water 100 ml @ 50 mls/hr 1X ONCE IV Last administered on 07/26/19at 12:24; Start 07/26/19 at 12:00; Stop 07/26/19 at 13:59; Status DC Magnesium Sulfate 50 ml @ 25 mls/hr 1X ONCE IV Last administered on 07/26/19at 14:12; Start 07/26/19 at 09:45; Stop 07/26/19 at 11:44; Status DC Amlodipine Besylate (Norvasc) 5 mg DAILY FT Last administered on 07/31/19at 09:30; Start 07/27/19 at 09:00 Potassium Chloride/Water 100 ml @ 50 mls/hr Q2H IV Last administered on 07/27/19at 00:56; Start 07/26/19 at 21:00; Stop 07/27/19 at 00:59; Status DC Haloperidol Lactate (Haldol Inj) 2 mg 1X ONCE IM Last administered on 07/27/19at 01:40; Start 07/27/19 at 01:15; Stop 07/27/19 at 01:16; Status DC Quetiapine Fumarate (SEROquel) 25 mg PRN Q6HRS PRN PO AGITATION Last administered on 07/27/19at 01:21; Start 07/27/19 at 01:00 Alteplase, Recombinant (Cathflo For Central Catheter Clearance) 1 mg 1X ONCE INT CAT Last administered on 07/27/19at 08:43; Start 07/27/19 at 08:00; Stop 07/27/19 at 08:15; Status DC Potassium Chloride/Water 100 ml @ 50 mls/hr Q2H IV Last administered on 07/27/19at 12:23; Start 07/27/19 at 09:00; Stop 07/27/19 at 12:59; Status DC Furosemide (Lasix) 40 mg DAILY PO Last administered on 07/29/19at 07:56; Start 07/28/19 at 09:00; Stop 07/29/19 at 09:08; Status DC Potassium Chloride (Klor-Con) 20 meq BID PO Last administered on 07/29/19at 07:56; Start 07/27/19 at 21:00; Stop 07/29/19 at 11:47; Status DC Metoprolol Succinate (Toprol Xl) 25 mg DAILY PO Last administered on 07/31/19at 09:33; Start 07/28/19 at 09:00 Pantoprazole Sodium (Protonix) 40 mg DAILYAC PO Last administered on 07/31/19at 09:29; Start 07/28/19 at 07:30 Acetaminophen (Tylenol) 650 mg PRN Q6HRS PRN PO MILD PAIN / TEMP > 100.3'F Last administered on 07/28/19at 13:11; Start 07/27/19 at 12:00 Oxycodone HCl (Roxicodone) 15 mg PRN BID PRN PO SEVERE PAIN 7-10 Last administered on 07/30/19at 21:09; Start 07/27/19 at 12:00 Sodium Phosphate 15 mmol/Sodium Chloride 105 ml @ 105 mls/hr 1X ONCE IV Last administered on 07/27/19at 15:02; Start 07/27/19 at 12:30; Stop 07/27/19 at 13:29; Status DC Potassium Chloride (Klor-Con) 40 meq 1X ONCE PO Last administered on 07/28/19at 11:41; Start 07/28/19 at 11:15; Stop 07/28/19 at 11:16; Status DC Ticagrelor (Brilinta) 90 mg BID PO Last administered on 07/30/19at 08:30; Start 07/28/19 at 12:45; Stop 07/30/19 at 11:05; Status DC Potassium Chloride (Klor-Con) 40 meq 1X ONCE PO Last administered on 07/29/19at 11:55; Start 07/29/19 at 09:15; Stop 07/29/19 at 09:16; Status DC Fluticasone Propionate (Flonase) 2 spray DAILY NS Last administered on 07/31/19at 09:30; Start 07/30/19 at 09:00 Apixaban (Eliquis) 5 mg BID PO Last administered on 07/31/19at 09:31; Start 07/30/19 at 21:00 Clopidogrel Bisulfate (Plavix) 75 mg DAILYWBKFT PO Last administered on 07/31/19at 09:29; Start 07/30/19 at 12:00 Potassium Chloride (Klor-Con) 40 meq BIDWMEALS PO Last administered on 07/30/19at 16:19; Start 07/30/19 at 12:00; Stop 07/30/19 at 17:01; Status DC Potassium Chloride (Klor-Con) 20 meq BIDWMEALS PO Last administered on 07/31/19at 09:29; Start 07/31/19 at 08:00 Furosemide (Lasix) 40 mg DAILY PO Last administered on 07/31/19at 09:32; Start 07/30/19 at 12:00 Magnesium Sulfate 50 ml @ 25 mls/hr 1X ONCE IV Last administered on 07/30/19at 12:05; Start 07/30/19 at 12:00; Stop 07/30/19 at 13:59; Status DC Magnesium Oxide (Magnesium Oxide) 400 mg BID PO Last administered on 07/31/19at 09:32; Start 07/31/19 at 09:00 Active Scripts Active Magnesium Oxide 400 Mg Tablet 1 Tab PO BID 30 Days Furosemide 40 Mg Tablet 40 Mg PO DAILY Amlodipine Besylate 5 Mg Tablet 5 Mg FT DAILY Metoprolol Succinate ( Xl ) (Metoprolol Succinate) 25 Mg Tab.er.24h 25 Mg PO DAILY Amiodarone Hcl 200 Mg Tablet 400 Mg PO DAILY Clopidogrel (Clopidogrel Bisulfate) 75 Mg Tablet 75 Mg PO DAILYWBKFT Klor-Con M20 (Potassium Chloride) 20 Meq Tab.er.prt 20 Meq PO BIDWMEALS Eliquis (Apixaban) 5 Mg Tablet 5 Mg PO BID Reported Acetaminophen 325 Mg Tablet 325 Mg PO Q6HRS Nexium Capsule (Esomeprazole Magnesium) 40 Mg Capsule.dr 40 Mg PO DAILYAC Oxycodone Hcl Immed.release (Oxycodone Hcl) 15 Mg Tablet 15 Mg PO PRN Q12HR PRN Alprazolam 1 Mg Tablet 1 Tab PO BID Vitals/I & O Vital Sign - Last 24 Hours 07/30/19 07/30/19 07/30/19 07/30/19 11:02 14:37 14:58 15:58 Temp 98.1 97.6 98.1 97.6 Pulse 66 60 Resp 18 18 18 B/P (MAP) 148/66 (93) 128/68 (88) Pulse Ox 95 96 96 96 O2 Delivery Room Air Room Air Room Air Room Air O2 Flow Rate 2.0 2.0 07/30/19 07/30/19 07/30/19 07/30/19 18:23 20:00 21:09 22:09 Temp 97.8 97.8 Pulse 69 Resp 20 18 18 B/P (MAP) 147/67 (93) Pulse Ox 96 96 93 O2 Delivery Room Air Room Air Room Air Room Air 07/30/19 07/31/19 07/31/19 07/31/19 22:35 02:30 07:00 09:30 Temp 97.4 97.3 98.4 97.4 97.3 98.4 Pulse 60 65 69 62 Resp 20 20 18 B/P (MAP) 134/72 (92) 143/74 (97) 153/73 (99) 153/73 Pulse Ox 93 94 96 O2 Delivery Room Air Room Air Room Air 07/31/19 07/31/19 09:31 09:33 Pulse 69 71 B/P (MAP) 153/73 Intake and Output 07/30/19 07/30/19 07/31/19 14:59 22:59 06:59 Intake Total 440 ml 720 ml 120 ml Output Total 200 ml 675 ml 200 ml Balance 240 ml 45 ml -80 ml RICK CAROLINA MD Jul 31, 2019 10:00
--- NOTE | 2019-07-31 10:08 | SNU/HH DC ---
DISCHARGE WITH HOME HEALTH DISCHARGE INFORMATION: Discharge Date: Jul 31, 2019 Final Diagnosis: Problems Medical Problems: (1) Acute exacerbation of CHF (congestive heart failure) Status: Acute (2) Acute on chronic renal insufficiency Status: Acute (3) Elevated troponin I level Status: Acute (4) Septic shock Status: Acute (5) Suspected COVID-19 virus infection Status: Acute Condition on Discharge: Stable CODE STATUS: Code Status: Full HOME HEALTH: Face to Face: I certify this patient is under my care and that I, or a nurse practitioner or physician's assistant women's basketball coach working with me, had a face to face encounter that meets the physician face to face encounter requirements with this patient on [07/31/19]. RN For Eval/Treatment: Yes Physical Therapy For: Evalulation/Treatment Occupational Therapy For: Evaluation/Treatment Pt Meets Homebound Status: Limited distance walking POST DISCHARGE ORDERS: Activity Instructions for Disc: Activity as tolerated Weight Bearing Status after Di: As tolerated DIET AFTER DISCHARGE: Cardiac CHECKS AFTER DISCHARGE: Checks after discharge: Check blood press - daily FOLLOW-UP: PCP to follow Home Health: dr. carolina Follow up with: dr. carolina later this wekk TREATMENT/EQUIPMENT ORDERS: Adaptive Equipment Issued: None CERTIFICATION STATEMENT: Certification Statement: Certification Statement: Based on the above finding, I certify that this patient is confined to the home and needs intermittent fpc care, physical therapy and/or speech therapy, or continues to need occupational therapy.~ This patient is under my care, and I have initiated the establishment of the plan of care.~ This patient will be followed by myself or a community physician who will periodically review the plan of care. Home Meds Active Scripts Magnesium Oxide (Magnesium Oxide) 400 Mg Tablet, 1 TAB PO BID for hypomagnesemia for 30 Days, #60 TAB 0 Refills Prov:RICK CAROLINA MD 07/30/19 Furosemide (FUROSEMIDE) 40 Mg Tablet, 40 MG PO DAILY for CHF, #30 TAB Prov:RICK CAROLINA MD 07/30/19 Amlodipine Besylate (AMLODIPINE BESYLATE) 5 Mg Tablet, 5 MG FT DAILY for HTN, #30 TAB Prov:RICK CAROLINA MD 07/30/19 Metoprolol Succinate (METOPROLOL SUCCINATE ( XL )) 25 Mg Tab.er.24h, 25 MG PO DAILY for CAD, #30 TAB.SR Prov:RICK CAROLINA MD 07/30/19 Amiodarone Hcl (AMIODARONE HCL) 200 Mg Tablet, 400 MG PO DAILY for PAF, #30 TAB Prov:RICK CAROLINA MD 07/30/19 Clopidogrel Bisulfate (CLOPIDOGREL) 75 Mg Tablet, 75 MG PO DAILYWBKFT for CAD, #30 TAB Prov:RICK CAROLINA MD 07/30/19 Potassium Chloride (KLOR-CON M20) 20 Meq Tab.er.prt, 20 MEQ PO BIDWMEALS for potassium supplement, #60 TAB.SR Prov:RICK CAROLINA MD 06/20/19 Apixaban (ELIQUIS) 5 Mg Tablet, 5 MG PO BID for atrial fibrillation, #60 TAB Prov:RICK CAROLINA MD 06/20/19 Reported Medications Acetaminophen (ACETAMINOPHEN) 325 Mg Tablet, 325 MG PO Q6HRS for Pain, TAB 06/13/19 Esomeprazole Magnesium (NEXIUM CAPSULE) 40 Mg Capsule.dr, 40 MG PO DAILYAC for REFLUX, #30 CAP 0 Refills 05/17/19 Oxycodone Hcl (OXYCODONE HCL IMMED.RELEASE) 15 Mg Tablet, 15 MG PO PRN Q12HR PRN for PAIN, TAB 0 Refills 05/17/19 Alprazolam (ALPRAZOLAM) 1 Mg Tablet, 1 TAB PO BID, #60 TAB 02/05/17 Discontinued Reported Medications Dicyclomine Hcl (DICYCLOMINE HCL) 10 Mg Capsule, 1 CAP PO PRN TID PRN for SEE COMMENTS, #90 CAP 11 Refills 05/17/19 Discontinued Scripts Metoprolol Succinate (Toprol XL) 50 Mg Tab.er.24h, 50 MG PO DAILY for cardiomyopathy and atrial fib, #30 TAB.SR Prov:RICK CAROLINA MD 06/20/19 Metolazone (METOLAZONE) 2.5 Mg Tablet, 2.5 MG PO QODAY for chf, #15 TAB Prov:RICK CAROLINA MD 06/20/19 Furosemide (FUROSEMIDE) 40 Mg Tablet, 40 MG PO BID92 for chf, #60 TAB Prov:RICK CAROLINA MD 06/20/19 Amiodarone Hcl (AMIODARONE HCL) 200 Mg Tablet, 200 MG PO DAILY for atrial fibrillation, #30 TAB Prov:RICK CAROLINA MD 06/20/19 RICK CAROLINA MD Jul 31, 2019 10:08
[2019-07-31 10:16] VITALS: BP 141/72
--- NOTE | 2019-07-31 10:44 | SNU/HH DC ---
DISCHARGE ORDERS DISCHARGE INFORMATION: DISCHARGE DATE: Jul 31, 2019 FINAL DIAGNOSIS Problems Medical Problems: (1) Acute exacerbation of CHF (congestive heart failure) Status: Acute (2) Acute on chronic renal insufficiency Status: Acute (3) Elevated troponin I level Status: Acute (4) Septic shock Status: Acute (5) Suspected COVID-19 virus infection Status: Acute CONDITION ON DISCHARGE: Stable CODE STATUS: Code Status: Full POST DISCHARGE ORDERS: ACTIVITY ORDERS: Activity as tolerated WEIGHT BEARING STATUS: As tolerated DIET AFTER DISCHARGE: Cardiac CHECKS AFTER DISCHARGE: CHECKS AFTER DISCHARGE: Check blood press - daily FOLLOW-UP: PHYSICIAN FOLLOW-UP: dr. carolina TREATMENT/EQUIPMENT ORDERS: ADAPTIVE EQUIPMENT NEEDED: None Physical Therapy For: Evalulation/Treatment Occupational Therapy For: Evaluation/Treatment DISCHARGE MEDICATIONS: Home Meds Active Scripts Magnesium Oxide (Magnesium Oxide) 400 Mg Tablet, 1 TAB PO BID for hypomagnesemia for 30 Days, #60 TAB 0 Refills Prov:RICK CAROLINA MD 07/30/19 Furosemide (FUROSEMIDE) 40 Mg Tablet, 40 MG PO DAILY for CHF, #30 TAB Prov:RICK CAROLINA MD 07/30/19 Amlodipine Besylate (AMLODIPINE BESYLATE) 5 Mg Tablet, 5 MG FT DAILY for HTN, #30 TAB Prov:RICK CAROLINA MD 07/30/19 Metoprolol Succinate (METOPROLOL SUCCINATE ( XL )) 25 Mg Tab.er.24h, 25 MG PO DAILY for CAD, #30 TAB.SR Prov:RICK CAROLINA MD 07/30/19 Amiodarone Hcl (AMIODARONE HCL) 200 Mg Tablet, 400 MG PO DAILY for PAF, #30 TAB Prov:RICK CAROLINA MD 07/30/19 Clopidogrel Bisulfate (CLOPIDOGREL) 75 Mg Tablet, 75 MG PO DAILYWBKFT for CAD, #30 TAB Prov:RICK CAROLINA MD 07/30/19 Potassium Chloride (KLOR-CON M20) 20 Meq Tab.er.prt, 20 MEQ PO BIDWMEALS for potassium supplement, #60 TAB.SR Prov:RICK CAROLINA MD 06/20/19 Apixaban (ELIQUIS) 5 Mg Tablet, 5 MG PO BID for atrial fibrillation, #60 TAB Prov:RICK CAROLINA MD 06/20/19 Reported Medications Acetaminophen (ACETAMINOPHEN) 325 Mg Tablet, 325 MG PO Q6HRS for Pain, TAB 06/13/19 Esomeprazole Magnesium (NEXIUM CAPSULE) 40 Mg Capsule.dr, 40 MG PO DAILYAC for REFLUX, #30 CAP 0 Refills 05/17/19 Oxycodone Hcl (OXYCODONE HCL IMMED.RELEASE) 15 Mg Tablet, 15 MG PO PRN Q12HR PRN for PAIN, TAB 0 Refills 05/17/19 Alprazolam (ALPRAZOLAM) 1 Mg Tablet, 1 TAB PO BID, #60 TAB 02/05/17 Discontinued Reported Medications Dicyclomine Hcl (DICYCLOMINE HCL) 10 Mg Capsule, 1 CAP PO PRN TID PRN for SEE COMMENTS, #90 CAP 11 Refills 05/17/19 Discontinued Scripts Metoprolol Succinate (Toprol XL) 50 Mg Tab.er.24h, 50 MG PO DAILY for cardiomyopathy and atrial fib, #30 TAB.SR Prov:RICK CAROLINA MD 06/20/19 Metolazone (METOLAZONE) 2.5 Mg Tablet, 2.5 MG PO QODAY for chf, #15 TAB Prov:RICK CAROLINA MD 06/20/19 Furosemide (FUROSEMIDE) 40 Mg Tablet, 40 MG PO BID92 for chf, #60 TAB Prov:RICK CAROLINA MD 06/20/19 Amiodarone Hcl (AMIODARONE HCL) 200 Mg Tablet, 200 MG PO DAILY for atrial fibrillation, #30 TAB Prov:RICK CAROLINA MD 06/20/19 RICK CAROLINA MD Jul 31, 2019 10:44
--- NOTE | 2019-07-31 10:45 | NUR ---
SS following up with discharge planning. SS reviewed pt chart and discussed with RN, PT/OT, home health, and Dr. No. Pt approved to go to [facility], ; fax [phone]. SS phoned and faxed clinical updates and discharge orders to [facility]. pt will discharge today and go to [facility] at 1530. [facility] to provide transportation. Pt and pt's RN notified.
[2019-07-31] MEDS ORDERED: POTASSIUM CHLORIDE 20 MEQ TABLET.ER. PO ONE (11:00)
[2019-07-31] MEDS ORDERED: MAGNESIUM SULFATE 2GM 50 ML IV ONE (11:00)
--- NOTE | 2019-07-31 11:49 | PDOC ---
SUBJECTIVE ROS No complaints OBJECTIVE Vital Signs Vital Signs Date Time Temp Pulse Resp B/P (MAP) Pulse Ox O2 Delivery O2 Flow Rate FiO2 07/31/19 10:16 97.4 65 20 141/72 (95) 97 Room Air 97.4 07/30/19 15:58 2.0 I & 0 Intake and Output 07/31/19 07:00 Intake Total 1280 ml Output Total 1075 ml Balance 205 ml Intake Oral 1280 ml Output Urine Total 1075 ml # Bowel Movements 1 PHYSICAL EXAM Physical Exam General: NAD HEENT:Om moist Abdomen: Soft Heart: Regular rate, Normal S1, Normal S2 Extremities: trace edema LE Lungs: decreased at bases Neuro: grossly normal Skin: No rashes - No Antunez DIAGNOSIS/ASSESSMENT Assessment & Plan DONTAE - ATN, Cardiorenal , resolved Cr was 3.3 , down to 1.5 , stable Supportive care, avoid nephrotoxins, Strict I/O, Daily BMP FU with renal as OP - Non urgent HypKalemia- On PO KCL Gross hematuria- resolved Acute Hypoxemia Resp failure - s/p Extubation Acute CHF- compensated , On RA, wt recorded in the chart- stable Restarted on lasiX PO per Primary, FU renal function and K closely AFIB-sp recent Cardioversion HTN-stable S/P CODE BLUE COMMENT/RELEVANT DATA Meds Current Medications Medications (Trade) Dose Ordered Sig/Chance Start Time Stop Time Status Last Admin Dose Admin Acetaminophen (Tylenol) 650 mg PRN Q6HRS PRN 07/27/19 12:00 07/28/19 13:11 650 MG Alprazolam (Xanax) 1 mg BID 07/17/19 21:00 07/31/19 09:30 1 MG Alteplase, Recombinant (Cathflo For Central Catheter Clearance) 1 mg 1X ONCE 07/27/19 08:00 07/27/19 08:15 DC 07/27/19 08:43 1 MG Amino Acids/ Glycerin/ Electrolytes 1,000 ml @ 50 mls/hr Q20H 07/23/19 13:15 07/23/19 17:04 DC Amiodarone HCl (Cordarone) 200 mg 1X ONCE 07/21/19 15:15 07/21/19 15:16 DC 07/21/19 15:38 200 MG Amiodarone HCl 150 mg/Dextrose 103 ml @ 618 mls/hr 1X ONCE 07/19/19 12:00 07/19/19 12:09 DC 07/19/19 12:15 618 MLS/HR Amiodarone HCl 450 mg/Dextrose 259 ml @ 0 mls/hr CONT PRN 07/20/19 10:00 Cancel Amlodipine Besylate (Norvasc) 5 mg DAILY 07/27/19 09:00 07/31/19 09:30 5 MG Apixaban (Eliquis) 5 mg BID 07/30/19 21:00 07/31/19 09:31 5 MG Aspirin (Aspirin Chewable) 81 mg DAILYWBKFT 07/20/19 08:00 07/30/19 11:05 DC 07/30/19 08:30 81 MG Aspirin (Aspirin Rectal Supp) 300 mg 1X ONCE 07/17/19 05:45 07/17/19 05:46 DC 07/17/19 06:01 300 MG Atropine Sulfate (ATROPINE 0.5mg SYRINGE) 0.5 mg PRN Q5MIN PRN 07/17/19 11:00 07/25/19 18:27 DC Bumetanide (Bumex) 1 mg 1X ONCE 07/17/19 06:00 07/17/19 06:01 DC 07/17/19 06:00 1 MG Clopidogrel Bisulfate (Plavix) 75 mg DAILYWBKFT 07/30/19 12:00 07/31/19 09:29 75 MG Desmopressin Acetate (Ddavp) 4 mcg BID 07/22/19 14:00 07/23/19 09:01 DC 07/23/19 10:20 4 MCG Dexmedetomidine HCl 400 mcg/ Sodium Chloride 100 ml @ 0 mls/hr CONT PRN 07/17/19 11:00 07/25/19 18:27 DC 07/20/19 13:31 8.5 MLS/HR Dextrose 1,000 ml @ 75 mls/hr [id number] 07/23/19 17:00 07/24/19 11:06 DC 07/23/19 17:09 75 MLS/HR Digoxin (Lanoxin) 250 mcg 1X ONCE 07/19/19 04:10 07/19/19 06:15 DC 07/19/19 04:15 250 MCG Epinephrine HCl (EPINEPHrine SYRINGE) 4 mg STK-MED ONCE 5/19/20 16:08 07/19/19 16:08 DC Epinephrine HCl 5 mg/Sodium Chloride 255 ml @ 32.926 mls/ hr CONT PRN 07/18/19 14:00 07/24/19 11:06 DC Etomidate (Amidate) 20 mg 1X ONCE 07/17/19 04:45 07/17/19 04:46 DC 07/17/19 04:43 20 MG Fluticasone Propionate (Flonase) 2 spray DAILY 07/30/19 09:00 07/31/19 09:30 2 SPRAY Furosemide (Lasix) 40 mg DAILY 07/30/19 12:00 07/31/19 09:32 40 MG Haloperidol Lactate (Haldol Inj) 2 mg 1X ONCE 07/27/19 01:15 07/27/19 01:16 DC 07/27/19 01:40 2 MG Heparin Sodium (Porcine) (Heparin Sodium) 7,000 unit 1X ONCE 07/18/19 14:45 07/18/19 14:52 DC 07/18/19 14:45 7,000 UNIT Heparin Sodium/ Sodium Chloride 500 ml @ As Directed STK-MED ONCE 07/18/19 15:11 07/18/19 15:11 DC Heparin Sodium/ Sodium Chloride (HEPARIN for ARTERIAL LINE FLUSH) 1,000 unit 1X ONCE 07/18/19 14:45 07/18/19 14:52 DC 07/18/19 14:45 1,000 UNIT Info (Anti-Coagulation Monitoring By Pharmacy) 1 each PRN DAILY PRN 07/18/19 08:00 07/20/19 14:42 1 EACH Info (Tpn Per Pharmacy) 1 each PRN DAILY PRN 07/22/19 08:45 Cancel Insulin Human Lispro (HumaLOG) 0-6 UNITS Q6HRS 07/17/19 12:00 07/23/19 10:06 DC Iodixanol (Visipaque 320) 100 ml 1X ONCE 07/18/19 14:45 07/18/19 14:52 DC 07/18/19 14:45 104 ML Lansoprazole (Prevacid) 30 mg DAILY 07/18/19 09:00 07/27/19 11:55 DC 07/27/19 08:36 30 MG Lidocaine HCl (Lidocaine 1% 20ml Vial) 20 ml 1X ONCE 07/18/19 14:45 07/18/19 14:52 DC 07/18/19 14:45 10 ML Lidocaine HCl (Lidocaine HCl 2% Abboject) 80 mg 1X ONCE 07/20/19 10:00 07/20/19 10:03 DC 07/20/19 10:11 80 MG Lidocaine HCl (Xylocaine-Mpf 1% 2ml Vial) 2 ml STK-MED ONCE 07/18/19 13:05 07/18/19 13:05 DC Lidocaine HCl/ Dextrose 500 ml @ 0 mls/hr CONT PRN 07/20/19 10:00 07/21/19 15:07 DC 07/20/19 10:15 15 MLS/HR Linezolid/Dextrose 300 ml @ 300 mls/hr Q12HR 07/18/19 09:00 07/20/19 08:25 DC 07/19/19 21:29 300 MLS/HR Magnesium Hydroxide (Milk Of Magnesia) 2,400 mg PRN DAILY PRN 07/17/19 10:30 Magnesium Oxide (Magnesium Oxide) 400 mg BID 07/31/19 09:00 07/31/19 09:32 400 MG Magnesium Sulfate 50 ml @ 25 mls/hr 1X ONCE 07/31/19 11:00 07/31/19 12:59 Magnesium Sulfate/ Dextrose 100 ml @ 100 mls/hr 1X ONCE 07/20/19 09:45 07/20/19 10:44 DC 07/20/19 11:43 100 MLS/HR Metolazone (Zaroxolyn) 2.5 mg QODAY 07/19/19 09:00 07/18/19 10:36 DC Metoprolol Succinate (Toprol Xl) 25 mg DAILY 07/28/19 09:00 07/31/19 09:33 25 MG Metoprolol Tartrate (Lopressor) 12.5 mg Q12HR 07/23/19 21:00 07/27/19 11:55 DC 07/27/19 08:38 12.5 MG Midazolam HCl 100 ml @ 0 mls/hr CONT PRN 07/17/19 07:15 07/25/19 18:27 DC 07/22/19 23:41 5 MLS/HR Milrinone Lactate/ Dextrose 100 ml @ 0 mls/hr CONT PRN 07/18/19 07:15 07/23/19 10:03 DC 07/20/19 02:37 4.2 MLS/HR Morphine Sulfate 30 ml @ 0 mls/hr CONT PRN PRN 07/18/19 12:45 07/25/19 18:27 DC 07/25/19 02:46 2 MLS/HR Morphine Sulfate (Morphine Sulfate) 4 mg PRN Q1HR PRN 07/17/19 11:15 07/27/19 11:55 DC 07/18/19 13:53 4 MG Nitroglycerin (Nitrostat) 0.4 mg 1X ONCE 07/17/19 04:30 07/17/19 04:43 DC 07/17/19 04:29 0.4 MG Nitroglycerin/ Dextrose 250 ml @ 1.5 mls/hr CONT PRN 07/24/19 08:00 07/27/19 11:55 DC 07/24/19 08:05 1.5 MLS/HR Norepinephrine Bitartrate 32 mg/ Dextrose 282 ml @ 0 mls/hr CONT PRN 07/18/19 11:15 07/23/19 10:05 DC 07/19/19 10:39 9 MLS/HR Norepinephrine Bitartrate 8 mg/ Dextrose 258 ml @ 0 mls/hr CONT PRN 07/17/19 06:30 07/18/19 13:40 DC 07/17/19 21:52 11 MLS/HR Ondansetron HCl (Zofran) 4 mg PRN Q8HRS PRN 07/17/19 06:00 07/18/19 05:59 DC Oxycodone HCl (Roxicodone) 15 mg PRN BID PRN 07/27/19 12:00 07/30/19 21:09 15 MG Pantoprazole Sodium (Protonix) 40 mg DAILYAC 07/28/19 07:30 07/31/19 09:29 40 MG Piperacillin Sod/ Tazobactam Sod 2.25 gm/Sodium Chloride 50 ml @ 100 mls/hr Q6HRS 07/17/19 18:00 07/22/19 08:47 DC 07/22/19 05:46 100 MLS/HR Piperacillin Sod/ Tazobactam Sod 3.375 gm/Sodium Chloride 50 ml @ 100 mls/hr Q8HRS 07/25/19 14:00 07/26/19 10:16 DC 07/26/19 05:33 100 MLS/HR Piperacillin Sod/ Tazobactam Sod 4.5 gm/Sodium Chloride 100 ml @ 200 mls/hr 1X ONCE 07/17/19 06:00 07/17/19 06:29 DC 07/17/19 11:14 200 MLS/HR Potassium Bicarbonate (Potassium Effervescent Tablet) 40 meq 1X ONCE 07/24/19 12:00 07/24/19 12:01 DC 07/24/19 11:54 40 MEQ Potassium Chloride/Water 100 ml @ 50 mls/hr Q2H 07/27/19 09:00 07/27/19 12:59 DC 07/27/19 12:23 50 MLS/HR Potassium Chloride (Klor-Con) 40 meq 1X ONCE 07/31/19 11:00 07/31/19 11:01 DC Propofol 100 ml @ 0 mls/hr CONT PRN 07/17/19 05:15 07/25/19 18:27 DC 07/24/19 18:33 10.9 MLS/HR Quetiapine Fumarate (SEROquel) 25 mg PRN Q6HRS PRN 07/27/19 01:00 07/27/19 01:21 25 MG Rocuronium [place] (Zemuron) 50 mg 1X ONCE 07/17/19 04:45 07/17/19 04:46 DC 07/17/19 04:44 50 MG Sodium Chloride 90 meq/Potassium Chloride 50 meq/ Potassium Phosphate 13.6 mmol/Magnesium Sulfate 10 meq/ Calcium Gluconate 10 meq/ Multivitamins 10 ml/Chromium/ Copper/Manganese/ Seleni/Zn 1 ml/ Total Parenteral Nutrition/Amino Acids/Dextrose/ Fat Emulsion Intravenous 1,512 ml @ 63 mls/hr TPN CONT 07/21/19 22:00 07/22/19 09:05 DC Sodium Phosphate 15 mmol/Sodium Chloride 105 ml @ 105 mls/hr 1X ONCE 07/27/19 12:30 07/27/19 13:29 DC 07/27/19 15:02 105 MLS/HR Ticagrelor (Brilinta) 90 mg BID 07/28/19 12:45 07/30/19 11:05 DC 07/30/19 08:30 90 MG Vancomycin HCl (Vanco Per Pharmacy) 1 each PRN DAILY PRN 07/17/19 06:00 07/17/19 10:41 DC 07/17/19 06:43 1 EACH Vancomycin HCl (Vancomycin Trough Level) 1 each 1X ONCE 07/19/19 06:00 07/19/19 06:01 Cancel Vancomycin HCl 1.75 gm/Sodium Chloride 500 ml @ 250 mls/hr Q24H 07/18/19 06:30 07/17/19 10:38 DC Vancomycin HCl 2 gm/Sodium Chloride 500 ml @ 250 mls/hr 1X ONCE 07/17/19 06:00 07/17/19 07:59 DC 07/17/19 06:15 250 MLS/HR Vecuronium [place] (Norcuron Bolus) 20 mg STK-MED ONCE 07/18/19 12:00 07/19/19 08:48 DC Lab Laboratory Tests Test 07/31/19 06:15 Sodium Level 139 mmol/L (136-145) Potassium Level 3.6 mmol/L (3.5-5.1) Chloride Level 103 mmol/L (98-107) Carbon Dioxide Level 29 mmol/L (21-32) Anion Gap 7 (6-14) Blood Urea Nitrogen 22 mg/dL (8-26) Creatinine 1.5 mg/dL (0.7-1.3) Estimated GFR (Cockcroft-Gault) 45.9 Glucose Level 102 mg/dL (70-99) Calcium Level 7.9 mg/dL (8.5-10.1) Magnesium Level 1.9 mg/dL (1.8-2.4) Results All relevant outside records, renal labs, imaging studies, telemetry/EKG's were reviewed. Justicifation of Admission Dx: Justifications for Admission: Justification of Admission Dx: N/A GYPSY COLEMAN MD Jul 31, 2019 11:48
--- NOTE | 2019-07-31 12:23 | PDOC ---
DEVIN GLOVER MANAGER TRAFFIC 07/31/19 1223: CARDIO Progress Notes Date and Time Date of Service 07/31/19 Time of Evaluation 1215 Subjective Subjective: No Chest Pain, No shortness of breath, No Palpitations Vitals Vitals Vital Signs Date Time Temp Pulse Resp B/P (MAP) Pulse Ox O2 Delivery O2 Flow Rate FiO2 07/31/19 10:16 97.4 65 20 141/72 (95) 97 Room Air 97.4 07/30/19 15:58 2.0 Weight Weight [ ] Input and Output Intake and Output Intake and Output 07/31/19 07:00 Intake Total 1280 ml Output Total 1075 ml Balance 205 ml Intake Oral 1280 ml Output Urine Total 1075 ml # Bowel Movements 1 Laboratory Labs Laboratory Tests Test 07/31/19 06:15 Sodium Level 139 mmol/L (136-145) Potassium Level 3.6 mmol/L (3.5-5.1) Chloride Level 103 mmol/L (98-107) Carbon Dioxide Level 29 mmol/L (21-32) Anion Gap 7 (6-14) Blood Urea Nitrogen 22 mg/dL (8-26) Creatinine 1.5 mg/dL (0.7-1.3) Estimated GFR (Cockcroft-Gault) 45.9 Glucose Level 102 mg/dL (70-99) Calcium Level 7.9 mg/dL (8.5-10.1) Magnesium Level 1.9 mg/dL (1.8-2.4) Microbiology Micro Microbiology 07/17/19 Urine Culture - Final, Complete 07/17/19 Urine Culture Result 1 (BOYD) - Final, Complete 07/17/19 Blood Culture - Final, Complete NO GROWTH AFTER 5 DAYS 07/17/19 Nose/Throat Culture - Final, Complete 07/17/19 - Final, Complete Review of Systems Constitutional: yes: weakness, alert, oriented Ears/Nose/Throat: Yes: no symptom reported Eyes: Yes: no symptom reported Pulmonary: Yes dyspnea Cardiovascular: Yes no symptom reported, Yes edema Gastrointestional: Yes: constipation Genitourinary: Yes: no symptom reported Musculoskeletal: Yes: muscle stiffness Skin: Yes no symptom reported Psychiatric/Neurological: Yes: no symptom reported Endocrine: Yes: no symptom reported Physical Exam HEENT: Neck Supple W Full Motion Chest: Symmetric LUNGS: Other (diminished) Heart: RRR (SR ) Abdomen: Soft N/T Extremities: No Edema, No Calf Tenderness Neurology: alert, oriented, follow commands Assessment Assessment 1. Acute on chronic respiratory failure with a/c CHF, PNA. COVID negative. Extubated 07/25/2019, doing well 2. Acute on chronic systolic CHF: compensated 3. ICM/NICM; EF better at 40-45% 4. CAD; s/p PCI/DARSHAN to the RCA 5. Septic shock; off pressors 6 DONTAE on CKD; Cr now normalized 7. PAFIB, VT; s/p multiple CVN. maintaining SR, no further ectopies 8. Hematuria, hemoptysis: resolved Recommendations Continue amiodarone/metoprolol for rhythm/rate control Secondary prevention measures Plavix/Eliquis upon discharge. No ASA. Oral Lasix therapy. Okay for discharge to rehab Follow up in our office with Dr. Barrera as scheduled Justicifation of Admission Dx: Justifications for Admission: Justification of Admission Dx: N/A VENU BARRERA MD 08/01/19 0826: CARDIO Progress Notes Plan Plan Late entry for 07/31/2019 Patient seen and examined. Agree with above nurse practitioner note. Discussed with patient and Dr. No previously. Medications reconciled. Okay to discharge. We will follow-up in the office in 6 weeks. DEVIN GLOVER APRN Jul 31, 2019 12:23 VENU BARRERA MD Aug 01, 2019 08:26
[2019-07-31 14:25] VITALS: BP 137/71
--- NOTE | 2019-07-31 15:47 | NUR ---
Discharge Note: MALKA THOMPSON [address] Discharge instructions and discharge home medications reviewed with Other facility and a copy given. All questions have been answered and understanding verbalized. The following instructions and handouts were given: medication list, written prescriptions in packet, follow up appointment, spoke to ALLA Lind at [facility] Discontinued lines and drains: TL IJ discontinued, please xeroform gauze, 4X4 and transparent dressing, clean dry and intact. Patient discharged to SNU with transportation via wheelchair
== END 2019-07-31 15:53 | DRG 853 ==
LOC: ER 04:14 → 1 WEST ICU 06:09 → CVICU 07-20 01:15 → 2 NORTH 07-26 12:04
PROVIDERS: ADMIT Internal Medicine; ATTEND Internal Medicine
PROC: 5A1955Z Respiratory Ventilation, Greater than 96 Consecutive Hours (ICD-10-PCS; principal; 2019-07-17)
PROC: 0BH17EZ Insertion of Endotracheal Airway into Trachea, Via Natural or Artificial Opening (ICD-10-PCS; 2019-07-17)
PROC: 02HV33Z Insertion of Infusion Device into Superior Vena Cava, Percutaneous Approach (ICD-10-PCS; 2019-07-17)
PROC: 027136Z Dilation of Coronary Artery, Two Arteries with Three Drug-eluting Intraluminal Devices, Percutaneous Approach (ICD-10-PCS; 2019-07-18)
PROC: 4A023N8 Measurement of Cardiac Sampling and Pressure, Bilateral, Percutaneous Approach (ICD-10-PCS; 2019-07-18)
PROC: B211YZZ Fluoroscopy of Multiple Coronary Arteries using Other Contrast (ICD-10-PCS; 2019-07-18)
PROC: 5A2204Z Restoration of Cardiac Rhythm, Single (ICD-10-PCS; 2019-07-18)
DX: A41.9 Sepsis, unspecified organism (principal); I50.43 Acute on chronic combined systolic (congestive) and diastolic (congestive) heart failure; J96.21 Acute and chronic respiratory failure with hypoxia; J18.9 Pneumonia, unspecified organism; J96.22 Acute and chronic respiratory failure with hypercapnia; N17.0 Acute kidney failure with tubular necrosis; R57.0 Cardiogenic shock; R65.21 Severe sepsis with septic shock; E87.0 Hyperosmolality and hypernatremia; G72.81 Critical illness myopathy; I13.0 Hypertensive heart and chronic kidney disease with heart failure and stage 1 through stage 4 chronic kidney disease, or unspecified chronic kidney disease; I42.8 Other cardiomyopathies; I47.1 Supraventricular tachycardia; I47.2 Ventricular tachycardia; I48.20 Chronic atrial fibrillation, unspecified; D69.6 Thrombocytopenia, unspecified; E66.01 Morbid (severe) obesity due to excess calories; E78.5 Hyperlipidemia, unspecified; E83.42 Hypomagnesemia; E87.6 Hypokalemia; I25.10 Atherosclerotic heart disease of native coronary artery without angina pectoris; I25.5 Ischemic cardiomyopathy; I27.20 Pulmonary hypertension, unspecified; I48.0 Paroxysmal atrial fibrillation; K21.9 Gastro-esophageal reflux disease without esophagitis; M1A.9XX0 Chronic gout, unspecified, without tophus (tophi); N18.3 Chronic kidney disease, stage 3 (moderate); R31.0 Gross hematuria; Z20.828 Contact with and (suspected) exposure to other viral communicable diseases; M19.90 Unspecified osteoarthritis, unspecified site; Z79.01 Long term (current) use of anticoagulants; Z79.02 Long term (current) use of antithrombotics/antiplatelets; Z79.82 Long term (current) use of aspirin; Z79.899 Other long term (current) drug therapy; Z80.1 Family history of malignant neoplasm of trachea, bronchus and lung; Z82.49 Family history of ischemic heart disease and other diseases of the circulatory system; Z83.3 Family history of diabetes mellitus; Z87.19 Personal history of other diseases of the digestive system; Z87.891 Personal history of nicotine dependence; Z90.49 Acquired absence of other specified parts of digestive tract; Z95.5 Presence of coronary angioplasty implant and graft; Z88.8 Allergy status to other drugs, medicaments and biological substances
CPT/HCPCS: 31500; 36415; 36556; 36600; 51702; 71045; 71046; 74018; 80048; 80053; 80061; 80076; 81001; 82553; 82728; 82805; 82962; 83036; 83605; 83615; 83735; 83880; 84100; 84132; 84145; 84484; 85007; 85025; 85347; 85610; 85730; 87040; 87070; 87086; 87804; 87880; 92928; 93005; 93308; 93460; 94002; 94003; 94640; 94760; 96365; 96366; 96368; 96375; 99291; C1769; C1773; C1874; C1887; C1892; J0171; J0282; J0610; J1160; J1630; J1644; J1940; J2001; J2020; J2250; J2260; J2270; J2543; J2597; J2704; J2997; J3370; J3475; J3480; J3490; J7040; J7060; Q9967; 92526-GN; 92610-GN; 97110-GO; 97110-GP; 97116-GP; 97530-GO; 97530-GP; 97535-GO; G0378; U0003-CS

== ENCOUNTER → 2020-01-17 | Outpatient (CLI) | payer OTHER ==
[~2020-01-17] MED LIST changes: -AMIO200T4 PO; +AMIO200T6 PO; +AMLO-186 FT; +AMLO-187 PO; -AMLO10TA8 PO; -ASPI-612 PO; +ASPI-886 PO; +CLOP75TA PO; +MAGN400T44 PO; +METO-239 PO
--- NOTE | 2020-01-17 16:42 | CARD ---
MR#: [id number] Date of Study: 01/17/2020 Ordering Physician: VENU YODER, Referring Physician: VENU YODER, Tech: Ashlyn Morrow [facility] APPROVED REPORT EXAM: Two-dimensional and M-mode echocardiogram with Doppler and color Doppler. Other Information Quality : GoodHR: 62bpm Rhythm : Regular INDICATION Cardiomyopathy. Hx: Cardiac stents, PAF, HTN, HLP. 2D DIMENSIONS RVDd4.7 (2.9-3.5cm)IVSd1.0 (0.7-1.1cm) Aortic Root(2D)3.7 (2.0-3.7cm)LVDd6.7 (3.9-5.9cm) LVOT Diameter2.2 (1.8-2.4cm)PWd1.1 (0.7-1.1cm) LVDs6.1 (2.5-4.0cm)FS (%) 9.4 % SV46.8 mlLVEF(%)20.2 (>50%) Aortic Valve AoV Peak German.150.3cm/You Peak GR.9.0mmHg LVOT Peak German.113.1cm/sAVA (VMAX)2.97cm2 AI P 1/2 Difl701wd Mitral Valve MV E Okwbxcmg615.0cm/sMV DECEL [id number] MV A Injgnvym56.9cm/sE/A Ratio3.4 Pulmonary Valve PV Peak Auqjpwdj37.8cm/s Tricuspid Valve TR P. Ipdjmktr340vx/sRAP PHLEQMOD0vfVg TR Peak Gr.50buRqUMTK48pbPs Pulmonary Vein S1 Ovcratmz32.9cm/sD2 Vixlsojo52.7cm/s PVa dwnoasbo109jxpt LEFT VENTRICLE The Left Ventricle is moderately dilated. There is normal left ventricular wall thickness. Left ventr icle systolic function is moderately impaired. The Ejection Fraction is 30-35%. Moderate left ventric ular diastolic dysfunction. RIGHT VENTRICLE The right ventricle is mildly dilated and hypokinetic. ATRIA The left atrium is severely dilated. The right atrium is mildly dilated. The interatrial septum is in tact with no evidence for an atrial septal defect or patent foramen ovale as noted on 2-D or Doppler imaging. AORTIC VALVE The aortic valve is normal in structure. Doppler and Color Flow revealed mild aortic regurgitation. T here is no significant aortic valvular stenosis. MITRAL VALVE The mitral valve is normal in structure and function. There is no mitral valve stenosis. Doppler and Color Flow revealed mild mitral regurgitation. TRICUSPID VALVE The tricuspid valve is normal in structure and function. Doppler and Color Flow revealed mild tricusp id regurgitation. The pulmonary artery systolic pressure is estimated at 50 mmHg. PULMONIC VALVE The pulmonary valve is normal in structure and function. Doppler and Color Flow revealed trace pulmon ic valvular regurgitation. GREAT VESSELS The aortic root is normal in size. Ascending aorta is mildly dilated. The IVC is normal in size and c ollapses >50% with inspiration. PERICARDIAL EFFUSION There is no evidence of significant pericardial effusion. Critical Notification Critical Value: No <Conclusion> Left ventricle systolic function is moderately impaired. The Ejection Fraction is 30-35%. Moderate left ventricular diastolic dysfunction. Mild aortic regurgitation. Mild mitral regurgitation. Mild tricuspid regurgitation. The pulmonary artery systolic pressure is estimated at 50 mmHg. There is no evidence of significant pericardial effusion. Signed by : Richie Lew, Electronically Approved : 01/17/2020 16:41:27
== END ==
LOC: ECHO 10:14
PROVIDERS: ATTEND Internal Medicine Cardiovascular Disease
DX: I08.3 Combined rheumatic disorders of mitral, aortic and tricuspid valves (principal)
CPT/HCPCS: 93306

== ENCOUNTER → 2020-05-14 | Outpatient (CLI) | payer MEDICARE ==
[~2020-05-14] MED LIST changes: +REGADENOSON 0.4 MG/5 ML DISP.SYRIN. IV ONE
--- NOTE | 2020-05-14 16:24 | RAD ---
MR#: [id number] Date of Study: 05/14/2020 Ordering Physician: VENU BARRERA, Referring Physician: RON PAULA Tech: RT Litzy Falcon) (N) APPROVED REPORT Test Type: Pharmacological Stress Nurse/Tech: ALLA WILSON Test Indications: ISCHEMIC CARDIOMYOPATHY Cardiac History: CAD, STENTS, HTN-SEE EMR Medications: SEE EMR Medical History: SEE EMR Resting ECG: AFIB/SR W/ 1ST DEGREE AVB Resting Heart Rate: 52 bpm Resting Blood Pressure: 145/63mmHg Pretest Chest Pain: No chest pain Nurse/Tech Notes SLIGHTLY IRREGULAR RATE AT TIMES, ARTIFACT NOTED PER MONITOR. VSS. DENIED CP OR SOA. Consent: The procedure was explained to the patient in lay terms. Informed consent was witnessed. Augustus eout was entered into [id number]. History and Stress Test performed by RT Zheng AgR) (N) Pharm. Details Pharmacologic stress testing was performed using 0.4mg per 5ml of regadenoson given intravenously ove r 7-10 seconds. Stress Symptoms PT C/O BRIEF SOA, WHICH SUBSIDED AFTER A COUPLE MINUTES. VSS. DENIED CHEST PAIN DURING TESTING. POST EXERCISE Reason for Termination: Infusion complete Max HR: 69 bpm Max Blood Pressure: 142/62mmHg Blood Pressure response to exercise: Normal blood pressure response during stress. Heart Rate response to exercise: NORMAL HEART RATE RESPONSE DURING STRESS Chest Pain: No. Arrhythmia: No. ARTIFACT NOTED DURING TEST, OTHERWISE NO SIGNIFICANT CHANGES FROM BASELINE EKG. ST Change: No. INTERPRETATION Stress EKG Conclusion: No evidence of stress induced EKG changes. Imaging Protocol IMAGE PROTOCOL: Rest Tc-99m/stress Tc-99m 1 day Rest: Stress: Viability: Radiopharm.Tc99m CztqqvwljAs19i Sestamibi Gmpq15mEl 33mCi Duration 15min. 15min. Img Date 05/14/2020 05/14/2020 Inj-Img Awsr27dbn. 60min. Rest Admin Site:IV - Left HandAdministrator:RT Litzy Falcon)(N) Stress Admin Site: IV - Left HandAdministrator: Caren Brush, RT (R)(N) STRESS DATA End Diast. Vol.254.0mlAv. Heart Rate53.0bpm End Syst. Vol.147.0mlCO Index BSA0.0L/min Myocardial Tfil542.0gEject. Gkcsjfif24.0% Stress Rates Pk. Fill Rate1.41EDV/secLVtime Pk. Fill 305.65msec Pk. Empty Rate2.11ESV/secLVtime Pk. Azwwq040.97msec 03/03 Pk. Fill0.47EDV/sec Stress Scores Regional WT2.00Summed WT25.00 Regional WM0.00Summed WM11.00 LV Perfusion There is a large size severe intensity fixed basal to distal inferior wall and distal inferoseptal de fect suggestive of prior infarct without any significant ischemia Wall Motion Moderate LV dysfunction with ejection fraction of 42% LV Perf. Quant 17 Seg. SSS17.00 17 Seg. SRS14.00 17 Seg. SDS3.00 Stress Defect Extent (% LAD)30.00Rest Defect Extent (% LAD)26.90Rev. Defect Extent (% LAD)0.60 Stress Defect Extent (% LCX) 58.80Rest Defect Extent (% LCX)36.30Rev. Defect Extent (% LCX)27.50 Stress Defect Extent (% RCA)42.20Rest Defect Extent (% RCA)26.70Rev. Defect Extent (% RCA)7.80 Stress Defect Extent (% JANIA)37.20Rest Defect Extent (% JANIA)28.70Rev. Defect Extent (% JANIA)7.20 Other Information Quality:Average Risk Assessment: Moderate-High Risk Conclusion 1. No evidence of stress-induced EKG changes 2. 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 Mild to moderate LV dysfunction with ejection fraction of 42% 4. Moderate to high risk for future cardiovascular events Signed by : Venu Barrera, Electronically Approved : 05/14/2020 16:23:37
== END ==
LOC: NM 11:18
PROVIDERS: ATTEND Internal Medicine Cardiovascular Disease
DX: I25.5 Ischemic cardiomyopathy (principal); I25.10 Atherosclerotic heart disease of native coronary artery without angina pectoris; I10 Essential (primary) hypertension; Z95.5 Presence of coronary angioplasty implant and graft
CPT/HCPCS: 78452; 93017; A9500; J2785

== ENCOUNTER → 2020-11-01 | Outpatient (CLI) | payer MEDICARE ==
[~2020-11-01] MED LIST changes: +HEPARIN for NUC MED 500 UNIT/5 ML DISP.SYRIN. IV ONE; +POTA-121 PO; -POTA20TA4 PO; -REGADENOSON 0.4 MG/5 ML DISP.SYRIN. IV ONE
--- NOTE | 2020-11-11 10:17 | RAD ---
MR#: [id number] Date of Study: 11/01/2020 Ordering Physician: VENU YODER, Referring Physician: RON PAULA Tech: RT Ancelmo (R) (N) APPROVED REPORT Test Type: Nuclear Medicine Cardiac Blood Pool Imagin Test Indications: Evaluation of EF Cardiac History: Ischemic Cardiomyopathy Medications: See medical record. Resting ECG: Sinus rhythm Resting Heart Rate: 60 bpm Imaging Protocol IMAGE PROTOCOL: Other Rest: Stress: Viability: Radiopharm.Tc99m RBC's Yskq49aOn Rest Admin Site:IV - Left HandAdministrator:RT Ezekiel (R)(N) LV Perfusion Adequate gated blood pool images were obtained after injection of technetium Wall Motion Mild global hypokinesis. Other Information Quality:Average Conclusion 1. Estimated Ejection fraction of 31.1% Signed by : Venu Yoder, Electronically Approved : 11/11/2020 10:17:21
== END ==
LOC: NM 09:03
PROVIDERS: ATTEND Internal Medicine Cardiovascular Disease
DX: I25.5 Ischemic cardiomyopathy (principal)
CPT/HCPCS: 78472; A9560